=== PATIENT | female | born 1970 | race Caucasian/White ===

== ENCOUNTER 2016-10-27 21:19 | Emergency (ER) | payer MEDICAID ==
[~2016-10-27] VITALS: Ht 152.4 cm; Wt 120.2 kg
[~2016-10-27 21:19] MED LIST: ABILIFY; AC325T PO; ACDPT PO; ACHD5005 PO; ALBU17AE23 IH; ALBU2.5V4 NEB; ALBU2.5V52 INH; ALBU8.5H2 IH; ALBU8.5H2 INH; ALPR0.254 PO; ALPR0.5T PO; ALPR1TAB7 PO; AMIT50TA3 PO; AMLO10TA PO; AMLO5TAB2 PO; AMLO5TAB5 PO; AMOX500C2 PO; ARMO150T3; ARMO150T3 PO; ARMO250T3; ASEN10TA9 SL; BENZ100C18 PO; CEFD300C3 PO; CEPH500C PO; CHLO500T4 PO; CLIN300C3 PO; CLN150C PO; CLON0.5T3 PO; CLON0.5T60 PO; CLON1TAB36; CLOT45CR46 TOP; CYCL10TA9 PO; DESV50TA; DESV50TA PO; DOXY100C2 PO; DOXY100C42 PO; ESCI10TA55 PO; FLUC100T PO; FLUO20CA25 PO; GABA100C PO; GABA300C PO; GABA400C PO; GABA600T PO; GABA600T2 PO; GABA800T2 PO; GBPN300C PO; GBPN600T PO; GFCD10B GT; GFCD10B PO; HCT25T PO; HYDR-2890 PO; HYDR-3583 PO; HYDR-3714 PO; HYDR-3720 PO; HYDR-700 PO; HYDR-707 PO; HYDR1CAP2 PO; HYDR1TAB PO; HYDR25CA PO; HYDR25CA5 PO; HYDR25TA4; HYDR25TA4 PO; IBUP-1780 PO; IBUP-30; IBUP-792 PO; IBUP800T26 PO; LEVO500S PO; LIDO15SO2 MM; LISI-595 PO; LISI40TA PO; LORA2TAB PO; LTH300C; MELO-170 PO; MEMA10TA PO; MEMA28CA PO; METH4TAB PO; METR500T PO; MTP50T; NAPR-243 PO; NAPR220C11 PO; NEBU1EAC10 MC; OXYC-12 PO; PANT40TA2 PO; PENI250T4 PO; PENI500T PO; PHEN37.555 PO; PRCD5U PO; PRD50T PO; PRED20TA PO; PREG100C22 PO; PREG75CA; PREG75CA PO; PROP1TAB77; PROP1TAB77 PO; PROP20TA5 PO; QTP100T PO; QTP200T PO; QUET200T28 PO; QUET300T PO; QUET300T2 PO; QUET400T3 PO; RIVA20TA2 PO; RT-ALBUINH IH; Rivaroxaban PO; SUCR1ORA5 PO; SULF1TAB38 PO; TIZA4TAB3 PO; TIZA4TAB55 PO; TOPI100T11 PO; TRAM-21 PO; TRAM50TA2 PO; TRAZ100T92 PO; TRAZADON; TRM50T PO; VNL37.5T PO; VORT20TA PO; XANAX; ZITHROMAX; [UNRECOGNIZED DRUG - OTHER] PO; [UNRECOGNIZED DRUG - REMARK]; [UNRECOGNIZED DRUG - REMARK] PO; nuvigil; prestiq
--- NOTE | 2016-10-27 22:57 | ED Psychosocial ---
General Chief Complaint: Substance Abuse Stated Complaint: VOMITING Nursing Triage Note: Patient reports experiencing withdrawal sx starting this a.m. Pt has began again to abuse opiates and had some Morphine/Roxicet; last med yesterday. Source: patient, RN notes reviewed Exam Limitations: physical impairment History of Present Illness Time seen by provider: 22:55 Initial Comments Apparent long hx of substance abuse. Admits to abusing again and is withdrawing. Timing/Duration: this morning Severity: severe Associated Symptoms: anxiety, other (nausea; abdominal cramping) Allergies and Home Medications Allergies Coded Allergies: NKANo Known Allergies (Unverified Allergy, Mild, 02/14/11) Home Medications Albuterol Sulfate 8.5 Gm Aer.w.adap 2 PUFF INH Q4H PRN PRN SHORTNESS OF BREATH ( Reported) Alprazolam 0.25 Mg Tablet #42 1 TAB PO TID (Reported) Amlodipine Besylate 5 Mg Tablet #30 1 TAB PO ethan (Reported) Cyclobenzaprine HCl 10 Mg Tablet #28 1 TAB PO PRN (Reported) Escitalopram Oxalate 10 Mg Tablet 10 MG PO DAILY (Reported) Gabapentin 600 Mg Tablet #180 1 TAB PO TID (Reported) Pantoprazole Sodium 40 Mg Tablet.dr #15 40 MG PO DAILY Prescribed by: TEODORA ROCA on 04/10/16 2326 Sucralfate 1 Gm/10 Ml Oral.susp #400 1 GM PO QID AC AND HS Prescribed by: TEODORA ROCA on 04/10/16 2326 Tramadol HCl 50 Mg Tablet #28 1 TAB PO PRN (Reported) Trazodone HCl 100 Mg Tablet 100 MG PO HS (Reported) Constitutional: see HPI diaphoresis Gastrointestinal: see HPI abdominal pain : No Control/STD Prophylaxis: Other (hyster) Psychiatric/Neurological: See HPI Anxiety Emotional Problems All Other Systems Reviewed Negative Unless Noted: Yes (Negative excepted noted.) Past Zjzbgfs-Srbdre-Gidouu Hx Patient Social History Alcohol Use: Occasionally Uses Recreational Drug Use: Yes (any Opiate obtained: Roxicet, Morphine) Smoking Status: Current Everyday Smoker Type Used: Cigarettes Former Smoker/When Quit: Recent Foreign Travel: No Contact w/Someone Who Travel: No Recent Infectious Disease Expo: No Recent Hopitalizations: No Immunizations Up To Date Tetanus Booster (TDap): Unknown Date of Pneumonia Vaccine: Apr 26, 2009 Date of Influenza Vaccine: Sep 09, 2012 Seasonal Allergies Seasonal Allergies: No Surgeries HX Surgeries: Yes (TRANSPOSTION/MEDIAN NERVE & CARPAL TUNNEL X 3, URETERAL STENT, LITHOTRIPSY) Surgeries: Gallbladder, Hysterectomy, Orthopedic, Renal, Tubal Ligation Respiratory Hx Respiratory Disorders: Yes Respiratory Disorders: Pneumonia, Chronic Bronchitis, Pulmonary Embolism Cardiovascular Hx Cardiac Disorders: Yes Cardiac Disorders: Hypertension Neurological Hx Neurological Disorders: Yes (PSUEDOSEIZURES) Neurological Disorders: Headaches /Migraines, Seizure Disorder 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 System : No Hx 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 Disorders: No Sexually Transmitted Disease: No HIV/AIDS: No Female 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 Genitourinary Hx Genitourinary Disorders: Yes Genitourinary Disorders: Kidney Stones Gastrointestinal Hx Gastrointestinal Disorders: No Musculoskeletal Hx Musculoskeletal Disorders: Yes (MOST ARE SELF-REPORTED, WITH [place] MEDICAL DOCUMENTATION OF THESE CONDITIONS) Musculoskeletal Disorders: Degenerate Disk Disease, Arthritis, Fibromyalgia, Back Injury, Scoliosis, Chronic Back Pain Endocrine Hx Endocrine Disorders: Yes (MORBID OBESITY) HEENT HX ENT Disorders: Yes (TMJ PROBLEMS PER PT, EXTENSIVE DENTAL CARIES/MISSING TEETH) Cancer Hx Cancer: No Psychosocial Hx Psychiatric Problems: Yes (MOOD DISORDER,POLYSUBSTANCE ABUSE, OVERDOSES, PANIC DISORDER, AGORAPHOBIA) Behavioral Health Disorders: Pseudo Seizures, Sleep Difficulties, Anxiety, Suicide Attempts, Depression Integumentary HX Skin/Integumentary Disorder: No Blood Transfusions Hx Blood Disorders: No Family Medical History Significant Family History: No Pertinent Family Hx Family Medial History: Alcoholism 19 FATHER (grandfather) Alzheimer's disease 19 MOTHER (grandmother) Arthritis 19 FATHER Cardiovascular disease 19 FATHER 19 MOTHER Cataracts 19 MOTHER Coronary thrombosis 19 FATHER Dementia 19 MOTHER (grandparents) Diabetes mellitus 19 MOTHER Drug abuse 19 FATHER Glaucoma 19 FATHER (grandfather) Headache disorder 19 FATHER Hypercholesterolemia 19 FATHER Hypertension 19 FATHER Myocardial infarction 19 FATHER Parkinson's disease 19 MOTHER Prostate cancer 19 MOTHER (uncle brother of mother) Psychosocial problem 19 FATHER Respiratory disorder 19 FATHER (grandfather) Seizure disorder 19 MOTHER No Family History of: AIDS Abdominal aortic aneurysm [place]'s disease Aphasia Asthma Cancer of mouth Colon cancer Completed stroke Congenital disease Congenital heart disease Cystic fibrosis Deafness or hearing loss Dysphasia Fibrocystic disease of breast Gastroenteritis Infertility Kidney disease Neoplasm Severe allergy Thyroid disease Tuberculosis Visual disorder Physical Exam Vital Signs Vital Sign - Last 12Hours 10/27/16 21:53 Temp 96.0 Pulse 72 Resp 20 B/P 186/95 Pulse Ox 98 O2 Delivery Room Air Capillary Refill : Less Than 3 Seconds General Appearance: WD/WN moderate distress obese HEENT: PERRL/EOMI pharynx normal Neck: supple Respiratory: no respiratory distress Cardiovascular: regular rate, rhythm Gastrointestinal: soft Neurologic/Psychiatric: no motor/sensory deficits alert other (anxious) Appearance/Memory: disheveled impaired insight Behavior/Eye Contact: increased rate of speech compulsive Thoughts/Hallucinations: phobic Skin: diaphoresis Laceration Repair : Suture Size: 4-0 Progress/Results/Core Measures Results/Orders Lab Results Laboratory Tests Test 10/27/16 23:12 10/27/16 23:40 Range/Units Ur Tricyclic Antidepressants Screen NEGATIVE NEGATIVE Urine Amphetamines Screen NEGATIVE NEGATIVE Urine Barbiturates Screen NEGATIVE NEGATIVE Urine Benzodiazepines Screen NEGATIVE NEGATIVE Urine Cannabinoids Screen POSITIVE H NEGATIVE Urine Cocaine Screen NEGATIVE NEGATIVE Urine Methadone Screen NEGATIVE NEGATIVE Urine Methamphetamines Screen NEGATIVE NEGATIVE Urine Opiates Screen POSITIVE H NEGATIVE Urine Oxycodone Screen POSITIVE H NEGATIVE Urine Phencyclidine Screen NEGATIVE NEGATIVE Urine Propoxyphene Screen NEGATIVE NEGATIVE Serum Alcohol < 10 <10 MG/DL My Orders Orders-JOSEMANUEL ANDERSEN DO Alcohol (10/27/16 22:55) Drug Screen Stat (Urine) (10/27/16 22:55) Clonidine Tablet (Catapres Tablet) (10/27/16 23:15) Diazepam Injection (Valium Injection) (10/27/16 23:15) Prochlorperazine Injection (Compazine In (10/27/16 23:15) Promethazine Injection (Phenergan Injec (10/27/16 23:15) Medications Given in ED Current Medications Medications Dose Ordered Sig/Garry Route Start Time Stop Time Status Last Admin Dose Admin Clonidine HCl 0.2 mg ONCE ONCE PO 10/27/16 23:15 10/27/16 23:16 DC 10/27/16 23:45 0.2 MG Diazepam 5 mg ONCE ONCE IM 10/27/16 23:15 10/27/16 23:16 DC 10/27/16 23:46 5 MG Promethazine HCl 50 mg ONCE ONCE IM 10/27/16 23:15 10/27/16 23:16 DC 10/27/16 23:46 50 MG Vital Signs/I&O Vital Sign - Last 12Hours 10/27/16 10/27/16 21:53 23:46 Temp 96.0 96.0 Pulse 72 Resp 20 B/P 186/95 Pulse Ox 98 O2 Delivery Room Air Blood Pressure Mean: 125 Progress Note : Progress Note Patient improved p/ the clonidine, valium and phenergan. Patient aware that we do not have narcotic withdrawal services here. Did provide [facility]'s new substance abuse treatment info. Departure Impression Impression: Primary Impression: Polysubstance abuse Additional Impression: ? Opiate withdrawal Disposition: HOME, SELF-CARE Condition: Improved Departure-Patient Inst. Decision time for Depature: 00:19 Referrals: [facility] (PCP/Family) Primary Care Physician Patient Instructions: Drug Withdrawal (DC), Drug Abuse and Drug Addiction (DC) Add. Discharge Instructions: All discharge instructions reviewed with patient and/or family. Voiced understanding. NEED TO FOLLOW UP WITH DR. WONG, OR DR. DE DIOS @ [facility]. THEY ARE NOW OFFERING MEDICATION-ASSISTED SUBSTANCE ABUSE TREATMENT THRU THEIR CLINIC. JOSEMANUEL NADERSEN DO Oct 27, 2016 22:56
[2016-10-27] MEDS ORDERED: PROMETHAZINE INJ 25 MG/ML (PHENERGAN) AMP IM ONE (23:15)
[2016-10-27] MEDS ORDERED: DIAZEPAM INJ 10 MG/2 ML (VALIUM) SYR IM ONE (23:15)
[2016-10-27] MEDS ORDERED: PROCHLORPERAZINE 10 MG/2ML INJ (COMPAZINE) IM ONE (23:15)
[2016-10-27] MEDS ORDERED: cloNIDine 0.2 MG (CATAPRES) TAB PO ONE (23:15)
[2016-10-28 00:28] VITALS: BP 192/106
[2016-10-28] MEDS ORDERED: DULO60CA58 PO (00:38)
[2016-11-02] MEDS ORDERED: AMLO5TAB2 PO (12:50)
== END 2016-10-28 00:28 | disposition home or self-care (01) ==
LOC: EDUNIT# 21:19 → ER 21:20
DX: R11.10 Vomiting, unspecified (principal); F11.10 Opioid abuse, uncomplicated; F12.10 Cannabis abuse, uncomplicated; F17.210 Nicotine dependence, cigarettes, uncomplicated
CPT/HCPCS: 36415; 80306; 80320; 96372; 99285

== ENCOUNTER 2016-10-31 18:44 | Emergency (ER) | payer MEDICAID ==
[~2016-10-31] VITALS: Ht 152.4 cm; Wt 120.4 kg
[~2016-10-31 18:44] MED LIST changes: +DULO60CA58 PO
[2016-10-31] MEDS ORDERED: LACTATED RINGERS 1,000 ML IV ONE (19:10)
[2016-10-31] MEDS ORDERED: ONDANSETRON 4 MG/2 ML (SDV) Z0FRAN IVP ONE (19:15)
[2016-10-31] MEDS ORDERED: cloNIDine 0.1 MG (CATAPRES) TAB PO ONE ×2 (19:15→20:30)
--- NOTE | 2016-10-31 19:19 | ED Psychosocial ---
General Chief Complaint: Detox Stated Complaint: MORPHINE WITHDRAWAL SYMPTOMS Nursing Triage Note: PT REPORTS SHE FEELS LIKE SHE IS WITHDRAWLING OFF OF OPIODS. PT REPORTS HER IN DECEMER AND SHE RELAPSED. PT REPORTS HER LAST USE WAS 2-3 DAYS AGO. PT REPORTS HOT SWEATS, INSOMNIA, AND ANXIETY. Source: patient Exam Limitations: no limitations History of Present Illness Time seen by provider: 18:59 Initial Comments This 46-year-old woman well-known to this provider presents to emergency room requesting help for narcotic withdrawal. She lost her in July and turned to narcotics to manage depression and loneliness. She has been purchasing them off the street. Her last use was about 2.5 days ago. She has had diaphoresis, agitation, hypertension, diarrhea, vomiting, and depression as part of her withdrawal. She has already contacted Portillo Oneill at [facility] and has an appointment to establish care in the substance abuse treatment program at [facility] tomorrow at 13:30. She is presenting to the emergency room to get assistance with managing her symptoms in the meantime. She is significantly hypertensive and tearful on assessment. She has some generalized pain and some epigastric discomfort. Allergies and Home Medications Allergies Coded Allergies: FILIPPOANo Known Allergies (Unverified Allergy, Mild, 02/14/11) Home Medications Albuterol Sulfate 8.5 Gm Aer.w.adap 2 PUFF INH Q4H PRN PRN SHORTNESS OF BREATH ( Reported) Alprazolam 0.25 Mg Tablet #42 1 TAB PO TID (Reported) Amlodipine Besylate 5 Mg Tablet #30 1 TAB PO ethan (Reported) Cyclobenzaprine HCl 10 Mg Tablet #28 1 TAB PO PRN (Reported) Duloxetine HCl 60 Mg Capsule.dr #10 (Reported) Escitalopram Oxalate 10 Mg Tablet 10 MG PO DAILY (Reported) Gabapentin 600 Mg Tablet #180 1 TAB PO TID (Reported) Pantoprazole Sodium 40 Mg Tablet.dr #15 40 MG PO DAILY Prescribed by: TEODORA ROCA on 04/10/162325 Sucralfate 1 Gm/10 Ml Oral.susp #400 1 GM PO QID AC AND HS Prescribed by: TEODORA ROCA on 04/10/162325 Tramadol HCl 50 Mg Tablet #28 1 TAB PO PRN (Reported) Trazodone HCl 100 Mg Tablet 100 MG PO HS (Reported) Constitutional: see HPI EENTM: see HPI Respiratory: no symptoms reported Cardiovascular: see HPI Gastrointestinal: see HPI Genitourinary: no symptoms reported : No Musculoskeletal: see HPI Skin: no symptoms reported Psychiatric/Neurological: See HPI Past [place]-Exnktl-Kqcpev Hx Patient Social History Alcohol Use: Past History Recreational Drug Use: Yes (prescription drug abuse and marijuana) Smoking Status: Current Everyday Smoker Type Used: Cigarettes Former Smoker/When Quit: Recent Foreign Travel: No Contact w/Someone Who Travel: No Recent Infectious Disease Expo: No Recent Hopitalizations: No Immunizations Up To Date Tetanus Booster (TDap): Unknown Date of Pneumonia Vaccine: Apr 26, 2009 Date of Influenza Vaccine: Sep 09, 2012 Seasonal Allergies Seasonal Allergies: No Surgeries HX Surgeries: Yes (TRANSPOSTION/MEDIAN NERVE & CARPAL TUNNEL X 3, URETERAL STENT, LITHOTRIPSY) Surgeries: Gallbladder, Hysterectomy, Orthopedic, Renal, Tubal Ligation Respiratory Hx Respiratory Disorders: Yes Respiratory Disorders: Pneumonia, Chronic Bronchitis, Pulmonary Embolism Cardiovascular Hx Cardiac Disorders: Yes Cardiac Disorders: Hypertension Neurological Hx Neurological Disorders: Yes (PSUEDOSEIZURES) Neurological Disorders: Headaches /Migraines, Seizure Disorder 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 System Hx 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 Disorders: No Sexually Transmitted Disease: No HIV/AIDS: No 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 Genitourinary Hx Genitourinary Disorders: Yes Genitourinary Disorders: Kidney Stones Gastrointestinal Hx Gastrointestinal Disorders: No Musculoskeletal Hx Musculoskeletal Disorders: Yes (MOST ARE SELF-REPORTED, WITH [place] MEDICAL DOCUMENTATION OF THESE CONDITIONS) Musculoskeletal Disorders: Degenerate Disk Disease, Arthritis, Fibromyalgia, Back Injury, Scoliosis, Chronic Back Pain Endocrine Hx Endocrine Disorders: Yes (MORBID OBESITY) HEENT HX ENT Disorders: Yes (TMJ PROBLEMS PER PT, EXTENSIVE DENTAL CARIES/MISSING TEETH) Cancer Hx Cancer: No Psychosocial Hx Psychiatric Problems: Yes (MOOD DISORDER,POLYSUBSTANCE ABUSE, OVERDOSES, PANIC DISORDER, AGORAPHOBIA) Behavioral Health Disorders: Pseudo Seizures, Sleep Difficulties, Anxiety, Suicide Attempts, Depression Integumentary HX Skin/Integumentary Disorder: No Blood Transfusions Hx Blood Disorders: No Family Medical History Significant Family History: No Pertinent Family Hx Family Medial History: Alcoholism 19 FATHER (grandfather) Alzheimer's disease 19 MOTHER (grandmother) Arthritis 19 FATHER Cardiovascular disease 19 FATHER 19 MOTHER Cataracts 19 MOTHER Coronary thrombosis 19 FATHER Dementia 19 MOTHER (grandparents) Diabetes mellitus 19 MOTHER Drug abuse 19 FATHER Glaucoma 19 FATHER (grandfather) Headache disorder 19 FATHER Hypercholesterolemia 19 FATHER Hypertension 19 FATHER Myocardial infarction 19 FATHER Parkinson's disease 19 MOTHER Prostate cancer 19 MOTHER (uncle brother of mother) Psychosocial problem 19 FATHER Respiratory disorder 19 FATHER (grandfather) Seizure disorder 19 MOTHER No Family History of: AIDS Abdominal aortic aneurysm [place]'s disease Aphasia Asthma Cancer of mouth Colon cancer Completed stroke Congenital disease Congenital heart disease Cystic fibrosis Deafness or hearing loss Dysphasia Fibrocystic disease of breast Gastroenteritis Infertility Kidney disease Neoplasm Severe allergy Thyroid disease Tuberculosis Visual disorder Physical Exam Vital Signs Vital Sign - Last 12Hours 10/31/16 18:58 Temp 97.5 Pulse 86 Resp 18 Pulse Ox 97 Capillary Refill : Less Than 3 Seconds General Appearance: WD/WN moderate distress (emotional) HEENT: PERRL/EOMI normal ENT inspection Neck: normal inspection Respiratory: lungs clear normal breath sounds no respiratory distress no accessory muscle use Cardiovascular: regular rate, rhythm no edema no murmur Gastrointestinal: normal bowel sounds soft tenderness (mild in the epigastrium ) Extremities: normal inspection no pedal edema 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 no motor/sensory deficits alert oriented x 3 other (anxious, tearful, depressed) Appearance/Memory: appropriate appearance appropriate insight Behavior/Eye Contact: cooperative good eye contact normal speech Thoughts/Hallucinations: normal thought pattern no apparent hallucination Skin: normal color warm/dry Laceration Repair : Suture Size: 4-0 Progress/Results/Core Measures Results/Orders Lab Results Laboratory Tests Test 10/31/16 19:14 10/31/16 19:21 Range/Units Alanine Aminotransferase (ALT/SGPT) 21 0-55 U/L Albumin 3.4 3.2-4.5 G/DL Alkaline Phosphatase 80 40-136 U/L Anion Gap 13 5-14 MMOL/L Aspartate Amino Transf (AST/SGOT) 14 5-34 U/L BUN/Creatinine Ratio 15 Basophils # (Auto) 0.0 0.0-0.1 10^3/uL Basophils (%) (Auto) 0 0-10 % Blood Morphology Comment NORMAL Blood Urea Nitrogen 10 7-18 MG/DL Calcium Level 8.9 8.5-10.1 MG/DL Carbon Dioxide Level 22 21-32 MMOL/L Chloride Level 105 98-107 MMOL/L Creatinine 0.65 0.60-1.30 MG/DL Eosinophils # (Auto) 0.2 0.0-0.3 10^3/uL Eosinophils % (Manual) 5 % Eosinophils (%) (Auto) 2 0-10 % Estimat Glomerular Filtration Rate > 60 Glucose Level 108 H 70-105 MG/DL Hematocrit 44 35-52 % Hemoglobin 14.9 11.5-16.0 G/DL Lipase 86 H 8-78 U/L Lymphocytes # (Auto) 4.3 H 1.0-4.0 X 10^3 Lymphocytes % (Manual) 19 % Lymphocytes (%) (Auto) 28 12-44 % Magnesium Level 1.6 L 1.8-2.4 MG/DL Mean Corpuscular Hemoglobin 30 25-34 PG Mean Corpuscular Hemoglobin Concent 34 32-36 G/DL Mean Corpuscular Volume 89 80-99 FL Mean Platelet Volume 10.5 H 7.4-10.4 FL Monocytes # (Auto) 0.7 0.0-1.0 X 10^3 Monocytes % (Manual) 5 % Monocytes (%) (Auto) 4 0-12 % Neutrophils # (Auto) 9.9 H 1.8-7.8 X 10^3 Neutrophils % (Manual) 66 % Neutrophils (%) (Auto) 65 42-75 % Platelet Count 263 130-400 10^3/uL Potassium Level 3.6 3.6-5.0 MMOL/L Reactive Lymphocytes 5 % Red Blood Count 4.93 4.35-5.85 10^6/uL Red Cell Distribution Width 13.6 10.0-14.5 % Serum Alcohol < 10 <10 MG/DL Sodium Level 140 135-145 MMOL/L TSH [place] Testing 1.97 0.35-4.94 UIU/ML Total Bilirubin 0.2 0.1-1.0 MG/DL Total Protein 6.7 6.4-8.2 G/DL White Blood Count 15.2 H 4.3-11.0 10^3/uL Ur Tricyclic Antidepressants Screen NEGATIVE NEGATIVE Urine Amphetamines Screen NEGATIVE NEGATIVE Urine Bacteria FEW H /HPF Urine Barbiturates Screen NEGATIVE NEGATIVE Urine Benzodiazepines Screen POSITIVE H NEGATIVE Urine Bilirubin NEGATIVE NEGATIVE Urine Cannabinoids Screen POSITIVE H NEGATIVE Urine Casts NONE /LPF Urine Clarity SLIGHTLY CLOUDY Urine Cocaine Screen NEGATIVE NEGATIVE Urine Color YELLOW Urine Crystals NONE /LPF Urine Culture Indicated NO Urine Glucose (UA) NEGATIVE NEGATIVE Urine Ketones NEGATIVE NEGATIVE Urine Leukocyte Esterase 1+ H NEGATIVE Urine Methadone Screen NEGATIVE NEGATIVE Urine Methamphetamines Screen NEGATIVE NEGATIVE Urine Mucus NEGATIVE /LPF Urine Nitrite NEGATIVE NEGATIVE Urine Opiates Screen NEGATIVE NEGATIVE Urine Oxycodone Screen NEGATIVE NEGATIVE Urine Phencyclidine Screen NEGATIVE NEGATIVE Urine Propoxyphene Screen NEGATIVE NEGATIVE Urine Protein 1+ H NEGATIVE Urine RBC NONE /HPF Urine RBC (Auto) 1+ H NEGATIVE Urine Specific [place] 1.020 1.016-1.022 Urine Squamous Epithelial Cells 25-50 H /HPF Urine Urobilinogen NORMAL NORMAL MG/DL Urine WBC 2-5 /HPF Urine pH 6 5-9 My Orders Orders-JOEL FULLER MD Clonidine Tablet (Catapres Tablet) (10/31/16 19:15) Lactated Ringers (Lr 1000 Ml Iv Solution (10/31/16 19:10) Ondansetron Injection (Zofran Injectio (10/31/16 19:15) Alcohol (10/31/16 19:10) Cbc With Automated Diff (10/31/16 19:10) Comprehensive Metabolic Panel (10/31/16 19:10) Drug Screen Stat (Urine) (10/31/16 19:10) Lipase (10/31/16 19:10) Magnesium (10/31/16 19:10) Ua Culture If Indicated (10/31/16 19:10) Thyroid Analyzer (10/31/16 19:10) Manual Differential (10/31/16 19:14) Chest Pa/Lat (2 View) (10/31/16 20:15) Clonidine Tablet (Catapres Tablet) (10/31/16 20:30) Hydroxyzine Oral (Vistaril Capsule) (10/31/16 20:30) Rx-Hydroxyzine Pamoate (Rx-Vistaril) (10/31/16 22:13) Rx-Ondansetron Po (Rx-Zofran Po) (10/31/16 22:20) Medications Given in ED Current Medications Medications Dose Ordered Sig/Garry Route Start Time Stop Time Status Last Admin Dose Admin Clonidine HCl 0.1 mg ONCE ONCE PO 10/31/16 20:30 10/31/16 20:31 DC 10/31/16 20:45 0.1 MG Clonidine HCl 0.1 mg 0.1 mg ONCE ONCE PO 10/31/16 19:15 10/31/16 19:16 DC 10/31/16 19:30 0.1 MG Hydroxyzine Pamoate 25 mg ONCE ONCE PO 10/31/16 20:30 10/31/16 20:31 DC 10/31/16 20:44 25 MG Lactated Ringer's 1,000 ml @ 0 mls/hr Q0M ONCE IV 10/31/16 19:10 10/31/16 19:13 DC 10/31/16 19:30 0 MLS/HR Ondansetron HCl 8 mg ONCE ONCE IVP 10/31/16 19:15 10/31/16 19:16 DC 10/31/16 19:30 8 MG Vital Signs/I&O Vital Sign - Last 12Hours 10/31/16 18:58 Temp 97.5 Pulse 86 Resp 18 B/P Pulse Ox 97 Progress Note #1: Time: 19:19 Progress Note Patient was seen and examined. She will receive a liter of lactated Ringer's and clonidine will be used for treatment of her blood pressure and anxiety. I will monitor her blood pressures. Basic labs have been ordered. Goal is to control her blood pressure and manage her symptoms so that she can follow-up at [facility] tomorrow. Progress Note #2: Time: 20:23 Progress Note Patient is still rather hypertensive and experiencing some anxiety. A second dose of clonidine as well as a dose of hydroxyzine have been ordered. Patient also had a significant leukocytosis. Chest x-ray is being ordered to evaluate for possible causes of infection. Progress Note #3: Time: 22:17 Progress Note Blood pressure improved significantly with clonidine and hydroxyzine. Patient is now sleeping soundly but easily arousable. A take-home packet of hydroxyzine will be provided. A take-home packet of Zofran was also dispensed. No source for her leukocytosis was identified. WBC elevation likely represents generalized physiologic stress from withdrawal. Diagnostic Imaging Diagonstic Imaging: Xray Plain Films/CT/US/NM/MRI: chest Comments NAME: TERENCE FUNK [facility] REC#: [id number] PT STATUS: REG ER : 1970 PHYSICIAN: JOEL FULLER MD ADMIT DATE: 10/31/16/ER Draft Date of Exam:10/31/16 CHEST PA/LAT (2 VIEW) EXAM: CHEST PA/LAT (2 VIEW)/ INDICATION: Leukocytosis. COMPARISON: Chest radiograph 04/10/2016. FINDINGS: Normal heart size and pulmonary vascularity. No focal pulmonary opacity, pleural effusion, or pneumothorax. No acute osseous findings. No significant change. IMPRESSION: Negative chest. Dictated on workstation # [id number] Dict: 10/31/162042 Trans: 10/31/162044 [id number] Interpreted by: ENRIQUE AYALA MD Departure Impression Impression: Primary Impression: Narcotic withdrawal Additional Impressions: Hypertensive urgency Depression with anxiety Nausea Grief reaction with prolonged bereavement Leukocytosis Qualified Code: D72.829 - Elevated white blood cell count, unspecified Disposition: HOME, SELF-CARE Condition: Improved Departure-Patient Inst. Decision time for Depature: 22:15 Referrals: [facility] (PCP/Family) Primary Care Physician Patient Instructions: Drug Abuse and Drug Addiction (DC) Add. Discharge Instructions: Stay well-hydrated. Use hydroxyzine every 6 hours as needed for anxiety. Keep your appointment at [facility] tomorrow. Use Zofran for the season ondansetron) dissolved under the tongue every 4 hours as needed for nausea. Return to the ER if symptoms worsen significantly before your appointment tomorrow. All discharge instructions reviewed with patient and/or family. Voiced understanding. Copy Copies To 1: JULIETTE WONG JOSHUA T MD Oct 31, 2016 19:19
[2016-10-31 19:26] LABS: BASOPHILS % (AUTO) 0 % (0-10); EOSINOPHILS # (AUTO) 0.2 10^3/uL (0.0-0.3); EOSINOPHILS % (AUTO) 2 % (0-10); LYMPHOCYTES # (AUTO) 4.3 X 10^3 (1.0-4.0); LYMPHOCYTES % (AUTO) 28 % (12-44); MEAN CORPUSCULAR HEMOGLOBIN 30 PG (25-34); MEAN CORPUSCULAR HGB CONC 34 G/DL (32-36); MEAN CORPUSCULAR VOLUME 89 FL (80-99); MEAN PLATELET VOLUME 10.5 FL (7.4-10.4); MONOCYTES # (AUTO) 0.7 X 10^3 (0.0-1.0); MONOCYTES % (AUTO) 4 % (0-12); NEUTROPHILS # (AUTO) 9.9 X 10^3 (1.8-7.8); NEUTROPHILS % (AUTO) 65 % (42-75); PLATELET COUNT 263 10^3/uL (130-400); RED BLOOD COUNT 4.93 10^6/uL (4.35-5.85); RED CELL DISTRIBUTION WIDTH 13.6 % (10.0-14.5); WHITE BLOOD COUNT 15.2 10^3/uL (4.3-11.0)
[2016-10-31 19:32] LABS: BILIRUBIN,URINE NEGATIVE (NEGATIVE); KETONES,URINE NEGATIVE (NEGATIVE); LEUKOCYTE ESTERASE ,URINE 1+ (NEGATIVE); NITRITE,URINE NEGATIVE (NEGATIVE); PH,URINE 6 (5-9); PROTEIN,URINE 1+ (NEGATIVE); UROBILINOGEN,URINE NORMAL (NORMAL)
[2016-10-31 19:41] LABS: SQUAMOUS EPITHELIAL CELL,UR 25-50 /HPF
[2016-10-31 19:44] LABS: ALANINE AMINOTRANSFERASE 21 U/L (0-55); ALBUMIN 3.4 G/DL (3.2-4.5); ANION GAP 13 MMOL/L (5-14); ASPARTATE AMINO TRANSFERASE 14 U/L (5-34); BILIRUBIN,TOTAL 0.2 MG/DL (0.1-1.0); BLOOD UREA NITROGEN 10 MG/DL (7-18); BUN/CREATININE RATIO 15; CALCIUM 8.9 MG/DL (8.5-10.1); CARBON DIOXIDE 22 MMOL/L (21-32); CHLORIDE 105 MMOL/L (98-107); CREATININE SERUM 0.65 MG/DL (0.60-1.30); EOSINOPHILS % (MANUAL) 5 %; GFR ESTIMATED > 60; GLUCOSE 108 MG/DL (70-105); LIPASE 86 U/L (8-78); LYMPHOCYTES % (MANUAL) 19 %; MAGNESIUM 1.6 MG/DL (1.8-2.4); NEUTROPHILS % (MANUAL) 66 %; POTASSIUM 3.6 MMOL/L (3.6-5.0); REACTIVE LYMPHOCYTES 5 %; SODIUM 140 MMOL/L (135-145); TOTAL PROTEIN 6.7 G/DL (6.4-8.2)
[2016-10-31 19:48] LABS: ALCOHOL < 10 MG/DL (<10)
[2016-10-31] MEDS ORDERED: hydrOXYzine (VISTARIL) 25 MG CAP PO ONE (20:30)
--- NOTE | 2016-10-31 20:45 | Diagnostic Imaging Report ---
EXAM: CHEST PA/LAT (2 VIEW)/ INDICATION: Leukocytosis. COMPARISON: Chest radiograph 04/10/2016. FINDINGS: Normal heart size and pulmonary vascularity. No focal pulmonary opacity, pleural effusion, or pneumothorax. No acute osseous findings. No significant change. IMPRESSION: Negative chest. Dictated by: Dictated on workstation # [id number]
[2016-10-31] MEDS ORDERED: RX-HYDROXYZINE PAMOATE 25 MG CAP #4 PO STA (22:13)
[2016-10-31] MEDS ORDERED: RX-ONDANSETRON 4 MG ODT (ZOFRAN) PPK #4 SL STA (22:20)
[2016-10-31 22:33] VITALS: BP 129/85
[2016-11-02] MEDS ORDERED: AMLO5TAB2 PO (12:50)
== END 2016-10-31 22:33 | disposition home or self-care (01) ==
LOC: EDUNIT# 18:44 → ER 18:45
DX: F11.23 Opioid dependence with withdrawal (principal); I16.0 Hypertensive urgency; F43.21 Adjustment disorder with depressed mood; F41.9 Anxiety disorder, unspecified; D72.829 Elevated white blood cell count, unspecified; G40.909 Epilepsy, unspecified, not intractable, without status epilepticus; E66.01 Morbid (severe) obesity due to excess calories; F17.210 Nicotine dependence, cigarettes, uncomplicated; Z79.899 Other long term (current) drug therapy; Z86.711 Personal history of pulmonary embolism
CPT/HCPCS: 36415; 71020; 80053; 80306; 80320; 81000; 83690; 83735; 84443; 85007; 85027; 96361; 96374

== ENCOUNTER 2016-11-01 19:12 | Inpatient (IN) | payer MEDICAID ==
[~2016-11-01] VITALS: Ht 154.9 cm; Wt 123.2 kg
[2016-11-01] MEDS ORDERED: NS IV 1000 ML 1,000 ML IV ONE (19:20)
[2016-11-01] MEDS ORDERED: NALOXONE 2 MG/2 ML (NARCAN) SYR IV ONE (19:30)
[2016-11-01 19:35] LABS: BILIRUBIN,URINE NEGATIVE (NEGATIVE); KETONES,URINE NEGATIVE (NEGATIVE); LEUKOCYTE ESTERASE ,URINE NEGATIVE (NEGATIVE); NITRITE,URINE NEGATIVE (NEGATIVE); PH,URINE 7 (5-9); PROTEIN,URINE NEGATIVE (NEGATIVE); UROBILINOGEN,URINE NORMAL (NORMAL)
[2016-11-01 19:42] LABS: SQUAMOUS EPITHELIAL CELL,UR 0-2 /HPF
[2016-11-01 19:49] LABS: BASOPHILS % (AUTO) 0 % (0-10); EOSINOPHILS # (AUTO) 0.2 10^3/uL (0.0-0.3); EOSINOPHILS % (AUTO) 2 % (0-10); LYMPHOCYTES # (AUTO) 4.4 X 10^3 (1.0-4.0); LYMPHOCYTES % (AUTO) 32 % (12-44); MEAN CORPUSCULAR HEMOGLOBIN 30 PG (25-34); MEAN CORPUSCULAR HGB CONC 34 G/DL (32-36); MEAN CORPUSCULAR VOLUME 88 FL (80-99); MONOCYTES # (AUTO) 0.6 X 10^3 (0.0-1.0); MONOCYTES % (AUTO) 4 % (0-12); NEUTROPHILS # (AUTO) 8.7 X 10^3 (1.8-7.8); NEUTROPHILS % (AUTO) 62 % (42-75); PLATELET COUNT 273 10^3/uL (130-400); RED CELL DISTRIBUTION WIDTH 13.7 % (10.0-14.5)
[2016-11-01 20:18] LABS: ALANINE AMINOTRANSFERASE 20 U/L (0-55); ALBUMIN 3.6 G/DL (3.2-4.5); AMYLASE 43 U/L (25-125); ANION GAP 13 MMOL/L (5-14); ASPARTATE AMINO TRANSFERASE 18 U/L (5-34); BILIRUBIN,TOTAL 0.3 MG/DL (0.1-1.0); BLOOD UREA NITROGEN 8 MG/DL (7-18); BUN/CREATININE RATIO 11; CALCIUM 9.2 MG/DL (8.5-10.1); CARBON DIOXIDE 25 MMOL/L (21-32); CHLORIDE 103 MMOL/L (98-107); CREATININE SERUM 0.76 MG/DL (0.60-1.30); GFR ESTIMATED > 60; GLUCOSE 98 MG/DL (70-105); POTASSIUM 3.4 MMOL/L (3.6-5.0); SALICYLATE < 5.0 MG/DL (5.0-20.0); SODIUM 141 MMOL/L (135-145)
[2016-11-01 20:24] LABS: ACETAMINOPHEN < 10 UG/ML (10-30); ALCOHOL < 10 MG/DL (<10)
[2016-11-01 21:08] VITALS: BP 170/104
[2016-11-01] MEDS ORDERED: D5 1/2 NS 1000 ML IV SOLUTION 1,000 ML IV ONE (21:08)
[2016-11-01 22:00] VITALS: BP 179/109
[2016-11-01] MEDS ORDERED: SODIUM BICARB 8.4% 50 MEQ/50 ML (ABBOTT) SYR IV ONE (22:30)
[2016-11-01] MEDS: D5 1/2 NS 1000 ML IV SOLUTION 1,000 ML IV SCH (22:30)
[2016-11-01 22:34] LABS: ABG BASE EXCESS 4.2 MMOL/L (-2.5-2.5); ABG HCO3 29 MMOL/L (23-27); ABG OXYGEN SATURATION 97 % (94-100); ABG PCO2 47 MMHG (35-45); ABG PO2 79 MMHG (79-93); ABG TCO2 30.6 MMOL/L (21.0-31.0)
[2016-11-01 22:35] LABS: ALLENS TEST YES-POS; PATIENT TEMP 95.5
[2016-11-01] MEDS: POTASSIUM CL 10 MEQ/50 ML IVPB (PRE-MIX) IV SCH (22:47)
[2016-11-01 23:00] VITALS: BP 183/108
[2016-11-01 23:42] LABS: MAGNESIUM 1.8 MG/DL (1.8-2.4)
[2016-11-01 23:47] LABS: ACETAMINOPHEN < 10 UG/ML (10-30)
[2016-11-01 23:48] LABS: TROPONIN I < 0.30 NG/ML (<0.30)
[2016-11-02] VITALS (13 sets, daily range): BP systolic 136–185; BP diastolic 97–131
[2016-11-02] MEDS ORDERED: hydrALAZINE (APESOLINE) 20 MG/ML VIAL ONE (00:02)
[2016-11-02] MEDS: POTASSIUM CL 10 MEQ/50 ML IVPB (PRE-MIX) IV SCH ×3 (00:17→04:11)
[2016-11-02] MEDS ORDERED: hydrALAZINE (APESOLINE) 20 MG/ML VIAL IV ONE (00:30)
[2016-11-02 01:27] LABS: ABG BASE EXCESS 5.9 MMOL/L (-2.5-2.5); ABG HCO3 30 MMOL/L (23-27); ABG OXYGEN SATURATION 97 % (94-100); ABG PCO2 39 MMHG (35-45); ABG PH 7.49 (7.37-7.43); ABG PO2 66 MMHG (79-93)
[2016-11-02 01:29] LABS: ALLENS TEST YES-POS; PATIENT TEMP 95.6
[2016-11-02] MEDS: D5 1/2 NS 1000 ML IV SOLUTION 1,000 ML IV SCH (04:15)
[2016-11-02 04:40] LABS: BASOPHILS % (AUTO) 0 % (0-10); EOSINOPHILS # (AUTO) 0.2 10^3/uL (0.0-0.3); EOSINOPHILS % (AUTO) 1 % (0-10); LYMPHOCYTES # (AUTO) 3.3 X 10^3 (1.0-4.0); LYMPHOCYTES % (AUTO) 24 % (12-44); MEAN CORPUSCULAR HEMOGLOBIN 30 PG (25-34); MEAN CORPUSCULAR HGB CONC 34 G/DL (32-36); MEAN CORPUSCULAR VOLUME 89 FL (80-99); MEAN PLATELET VOLUME 10.4 FL (7.4-10.4); MONOCYTES # (AUTO) 0.5 X 10^3 (0.0-1.0); MONOCYTES % (AUTO) 3 % (0-12); NEUTROPHILS # (AUTO) 9.5 X 10^3 (1.8-7.8); NEUTROPHILS % (AUTO) 71 % (42-75); PLATELET COUNT 238 10^3/uL (130-400); RED BLOOD COUNT 4.99 10^6/uL (4.35-5.85); RED CELL DISTRIBUTION WIDTH 13.8 % (10.0-14.5); WHITE BLOOD COUNT 13.5 10^3/uL (4.3-11.0)
[2016-11-02 05:04] LABS: ALANINE AMINOTRANSFERASE 16 U/L (0-55); ALBUMIN 3.2 G/DL (3.2-4.5); ANION GAP 10 MMOL/L (5-14); ASPARTATE AMINO TRANSFERASE 13 U/L (5-34); BILIRUBIN,TOTAL 0.2 MG/DL (0.1-1.0); BLOOD UREA NITROGEN 7 MG/DL (7-18); BUN/CREATININE RATIO 10; CALCIUM 8.7 MG/DL (8.5-10.1); CARBON DIOXIDE 25 MMOL/L (21-32); CHLORIDE 105 MMOL/L (98-107); CREATININE SERUM 0.67 MG/DL (0.60-1.30); GFR ESTIMATED > 60; GLUCOSE 118 MG/DL (70-105); MAGNESIUM 1.9 MG/DL (1.8-2.4); PHOSPHORUS 3.2 MG/DL (2.3-4.7); POTASSIUM 4.1 MMOL/L (3.6-5.0); SODIUM 140 MMOL/L (135-145); TOTAL PROTEIN 6.2 G/DL (6.4-8.2)
--- NOTE | 2016-11-02 05:22 | ED Psychosocial ---
General Chief Complaint: Overdose Stated Complaint: INTENTIONAL DRUG OVERDOSE-AMITRIPTYLENE Nursing Triage Note: pt to er per ems. family reports they saw her take a handfull of amitriptyline at 1600. there are 20, 25mg tabs missing from her bottle that was filled today. pt is restless, thrashing in bed. alert to person only. mumbling at times about being depressed. c/o generalized pain. reports she stopped taking xanax yesterday. possibly attempting to stop taking narcotics also. Source: patient, EMS Exam Limitations: clinical condition (PT INCOHERENT AT TIMES AND IS VERY LIMITED HISTORIAN AT THIS TIME) History of Present Illness Time seen by provider: 19:16 Initial Comments PT ARRIVES VIA EMS FROM HOME PT TOOK #20 25 MG AMITRIPTYLINE AT 1600 TODAY IN FRONT OF FAMILY PT FILLED RX TODAY FOR #30 AND #10 ARE STILL IN BOTTLE PT STATES SHE CALLED EMS PRIOR TO ARRIVAL PT MUMBLING ABOUT DEPRESSION, , , KIDS--BUT UNABLE TO UNDERSTAND MOST OF WHAT PT IS SAYING. PT WITH EXTENSIVE DRUG ABUSE HISTORY AND MULTIPLE DRUG OVERDOSES, WELL ALCOHOL ABUSE--KNOWN HISTORY OF GETTING DRUGS OFF STREET--MORPHINE, CODEINE, HYDROCODONE AND OXYCODONE. PT ALSO HAS BEEN KNOWN TO USE METH. PT WAS SEEN HERE YESTERDAY AND 10/27 FOR REPORTED NARCOTIC WITHDRAWL, AND PT REPORTEDLY ALSO STOPPED TAKING HER XANAX YESTERDAY WELL--PER CHART PT WITH A MULTITUDE OF VISITS HERE--MOST ARE ALCOHOL AND DRUG-RELATED ISSUES/ PSYCH ISSUES PT HAS BEEN FOUND TO HAVE DRUGS HIDDEN IN HER VAGINA IN THE PAST, AND MOST RECENTLY WAS FOUND TO HAVE A TUBE OF SUPERGLUE IN HER VAGINA WELL. PT ALSO KNOWN TO GIVE FALSE URINE SAMPLES AND HAS BEEN FOUND TO HAVE A BOTTLE OF URINE HID IN HER VAGINA IN THE PAST. PT ALSO WITH EXTENSIVE HISTORY OF NON-COMPLIANCE IN ALL ASPECTS OF CARE PCP: [facility] Allergies and Home Medications Allergies Coded Allergies: FILIPPOANo Known Allergies (Unverified Allergy, Mild, 02/14/11) Home Medications Albuterol Sulfate 8.5 Gm Aer.w.adap 2 PUFF INH Q4H PRN PRN SHORTNESS OF BREATH ( Reported) Alprazolam 0.25 Mg Tablet #42 1 TAB PO TID (Reported) Amlodipine Besylate 5 Mg Tablet #30 1 TAB PO ethan (Reported) Cyclobenzaprine HCl 10 Mg Tablet #28 1 TAB PO PRN (Reported) Duloxetine HCl 60 Mg Capsule.dr #10 (Reported) Escitalopram Oxalate 10 Mg Tablet 10 MG PO DAILY (Reported) Gabapentin 600 Mg Tablet #180 1 TAB PO TID (Reported) Pantoprazole Sodium 40 Mg Tablet.dr #15 40 MG PO DAILY Prescribed by: TEODORA ROCA on 04/10/162325 Sucralfate 1 Gm/10 Ml Oral.susp #400 1 GM PO QID AC AND HS Prescribed by: TEODORA ROCA on 04/10/166 Tramadol HCl 50 Mg Tablet #28 1 TAB PO PRN (Reported) Trazodone HCl 100 Mg Tablet 100 MG PO HS (Reported) Constitutional: other (UNABLE TO OBTAIN FROM PT) Past Saospkm-Llogvr-Xlzrws Hx Patient Social History Alcohol Use: Regular Use (HEAVY USE/ABUSE--MULTIPLE VISITS FOR ALCOHOL INTOXICATION) Recreational Drug Use: Yes (EXTENSIVE POLYSUBSTANCE ABUSE/OVERDOSES--METH, RX DRUGS-MORPHINE, CODEINE, HYDROCODONE, OXYCODONE. HAS BEEN ADMITTED TO [facility] IN PAST. ) Smoking Status: Current Everyday Smoker (1 PPD) Type Used: Cigarettes Former Smoker/When Quit: Recent Foreign Travel: No Contact w/Someone Who Travel: No Recent Infectious Disease Expo: No Recent Hopitalizations: No Immunizations Up To Date Tetanus Booster (TDap): Unknown Date of Pneumonia Vaccine: Apr 26, 2009 Date of Influenza Vaccine: Sep 09, 2012 Seasonal Allergies Seasonal Allergies: No Surgeries HX Surgeries: Yes (TRANSPOSTION/MEDIAN NERVE & CARPAL TUNNEL X 3, URETERAL STENT, LITHOTRIPSY) Surgeries: Gallbladder, Hysterectomy, Orthopedic, Renal, Tubal Ligation Respiratory Hx Respiratory Disorders: Yes Respiratory Disorders: Pneumonia, Chronic Bronchitis, Pulmonary Embolism Cardiovascular Hx Cardiac Disorders: Yes Cardiac Disorders: Hypertension Neurological Hx Neurological Disorders: Yes (PSUEDOSEIZURES) Neurological Disorders: Headaches /Migraines, Seizure Disorder 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 System Hx 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 Disorders: No Sexually Transmitted Disease: No HIV/AIDS: No Female 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 Disorders: Denies 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 Genitourinary Hx Genitourinary Disorders: Yes Genitourinary Disorders: Kidney Stones Gastrointestinal Hx Gastrointestinal Disorders: No Musculoskeletal Hx Musculoskeletal Disorders: Yes (MOST ARE SELF-REPORTED, WITH [place] MEDICAL DOCUMENTATION OF THESE CONDITIONS) Musculoskeletal Disorders: Degenerate Disk Disease, Arthritis, Fibromyalgia, Back Injury, Scoliosis, Chronic Back Pain Endocrine Hx Endocrine Disorders: Yes (MORBID OBESITY) HEENT HX ENT Disorders: Yes (TMJ PROBLEMS PER PT, EXTENSIVE DENTAL CARIES/MISSING TEETH) Cancer Hx Cancer: No Psychosocial Hx Psychiatric Problems: Yes (MOOD DISORDER,POLYSUBSTANCE ABUSE, OVERDOSES, PANIC DISORDER, AGORAPHOBIA) Behavioral Health Disorders: Pseudo Seizures, Sleep Difficulties, Anxiety, Suicide Attempts, Depression Integumentary HX Skin/Integumentary Disorder: No Blood Transfusions Hx Blood Disorders: No Family Medical History Significant Family History: No Pertinent Family Hx Family Medial History: Alcoholism 19 FATHER (grandfather) Alzheimer's disease 19 MOTHER (grandmother) Arthritis 19 FATHER Cardiovascular disease 19 FATHER 19 MOTHER Cataracts 19 MOTHER Coronary thrombosis 19 FATHER Dementia 19 MOTHER (grandparents) Diabetes mellitus 19 MOTHER Drug abuse 19 FATHER Glaucoma 19 FATHER (grandfather) Headache disorder 19 FATHER Hypercholesterolemia 19 FATHER Hypertension 19 FATHER Myocardial infarction 19 FATHER Parkinson's disease 19 MOTHER Prostate cancer 19 MOTHER (uncle brother of mother) Psychosocial problem 19 FATHER Respiratory disorder 19 FATHER (grandfather) Seizure disorder 19 MOTHER No Family History of: AIDS Abdominal aortic aneurysm Vargas's disease Aphasia Asthma Cancer of mouth Colon cancer Completed stroke Congenital disease Congenital heart disease Cystic fibrosis Deafness or hearing loss Dysphasia Fibrocystic disease of breast Gastroenteritis Infertility Kidney disease Neoplasm Severe allergy Thyroid disease Tuberculosis Visual disorder Physical Exam Vital Signs Vital Sign - Last 12Hours 11/01/16 11/01/16 11/01/16 19:15 19:45 21:02 Temp 97.1 Pulse 78 Resp 24 B/P 170/101 Pulse Ox 94 O2 Delivery Nasal Cannula O2 Flow Rate 2 Capillary Refill : Less Than 3 Seconds General Appearance: obese other (PT AGITATED, THRASHING ALL OVER CART. SPEECH MUMBLED/SLURRED AND MOSTLY INCOHERENT WITH A FEW WORDS UNDERSTOOD. PT UNABLE TO ANSWER QUESTIONS OR FOLLOW COMMANDS AT THIS TIME. PT DROWSY AND KEEPS EYES CLOSED. MALODOROUS, UNKEMPT, DIRTY. ) HEENT: other (MOST TEETH MISSING AND REMAINING TEETH DECAYED DOWN TO GUMS. . DRY ORAL MUCOSA.) Respiratory: normal breath sounds no respiratory distress no accessory muscle use Cardiovascular: normal peripheral pulses regular rate, rhythm no murmur Gastrointestinal: non tender soft Extremities: no pedal edema normal capillary refill Neurologic/Psychiatric: no motor/sensory deficits other (MENTATION ABOVE) Appearance/Memory: disheveled Behavior/Eye Contact: uncooperative Skin: normal color warm/dry Laceration Repair : Suture Size: 4-0 Progress/Results/Core Measures Results/Orders Lab Results Laboratory Tests Test 11/01/16 19:16 11/01/16 19:25 11/01/16 22:30 11/01/16 23:05 Range/Units Acetaminophen Level < 10 L < 10 L 10-30 UG/ML Alanine Aminotransferase (ALT/SGPT) 20 0-55 U/L Albumin 3.6 3.2-4.5 G/DL Alkaline Phosphatase 83 40-136 U/L Amylase Level 43 25-125 U/L Anion Gap 13 5-14 MMOL/L Aspartate Amino Transf (AST/SGOT) 18 5-34 U/L BUN/Creatinine Ratio 11 Basophils # (Auto) 0.0 0.0-0.1 10^3/uL Basophils (%) (Auto) 0 0-10 % Blood Urea Nitrogen 8 7-18 MG/DL Calcium Level 9.2 8.5-10.1 MG/DL Carbon Dioxide Level 25 21-32 MMOL/L Chloride Level 103 98-107 MMOL/L Creatinine 0.76 0.60-1.30 MG/DL Eosinophils # (Auto) 0.2 0.0-0.3 10^3/uL Eosinophils (%) (Auto) 2 0-10 % Estimat Glomerular Filtration Rate > 60 Free Thyroxine 0.84 0.70-1.48 NG/DL Glucose Level 98 70-105 MG/DL Hematocrit 45 35-52 % Hemoglobin 15.5 11.5-16.0 G/DL Lymphocytes # (Auto) 4.4 H 1.0-4.0 X 10^3 Lymphocytes (%) (Auto) 32 12-44 % Mean Corpuscular Hemoglobin 30 25-34 PG Mean Corpuscular Hemoglobin Concent 34 32-36 G/DL Mean Corpuscular Volume 88 80-99 FL Mean Platelet Volume 11.0 H 7.4-10.4 FL Monocytes # (Auto) 0.6 0.0-1.0 X 10^3 Monocytes (%) (Auto) 4 0-12 % Neutrophils # (Auto) 8.7 H 1.8-7.8 X 10^3 Neutrophils (%) (Auto) 62 42-75 % Platelet Count 273 130-400 10^3/uL Potassium Level 3.4 L 3.6-5.0 MMOL/L Red Blood Count 5.10 4.35-5.85 10^6/uL Red Cell Distribution Width 13.7 10.0-14.5 % Salicylates Level < 5.0 L 5.0-20.0 MG/DL Serum Alcohol < 10 <10 MG/DL Serum Test, Qualitative NEGATIVE NEGATIVE Sodium Level 141 135-145 MMOL/L TSH Nolan Testing 7.00 H 0.35-4.94 UIU/ML Total Bilirubin 0.3 0.1-1.0 MG/DL Total Protein 7.0 6.4-8.2 G/DL White Blood Count 14.0 H 4.3-11.0 10^3/uL Ur Tricyclic Antidepressants Screen POSITIVE H NEGATIVE Urine Amphetamines Screen NEGATIVE NEGATIVE Urine Bacteria NONE /HPF Urine Barbiturates Screen NEGATIVE NEGATIVE Urine Benzodiazepines Screen POSITIVE H NEGATIVE Urine Bilirubin NEGATIVE NEGATIVE Urine Cannabinoids Screen POSITIVE H NEGATIVE Urine Casts NONE /LPF Urine Clarity SLIGHTLY CLOUDY Urine Cocaine Screen NEGATIVE NEGATIVE Urine Color YELLOW Urine Crystals NONE /LPF Urine Culture Indicated NO Urine Glucose (UA) NEGATIVE NEGATIVE Urine Ketones NEGATIVE NEGATIVE Urine Leukocyte Esterase NEGATIVE NEGATIVE Urine Methadone Screen NEGATIVE NEGATIVE Urine Methamphetamines Screen NEGATIVE NEGATIVE Urine Mucus NEGATIVE /LPF Urine Nitrite NEGATIVE NEGATIVE Urine Opiates Screen NEGATIVE NEGATIVE Urine Oxycodone Screen NEGATIVE NEGATIVE Urine Phencyclidine Screen NEGATIVE NEGATIVE Urine Propoxyphene Screen NEGATIVE NEGATIVE Urine Protein NEGATIVE NEGATIVE Urine RBC RARE /HPF Urine RBC (Auto) NEGATIVE NEGATIVE Urine Specific Tyler 1.010 L 1.016-1.022 Urine Squamous Epithelial Cells 0-2 /HPF Urine Urobilinogen NORMAL NORMAL MG/DL Urine WBC NONE /HPF Urine pH 7 5-9 Don Test YES-POS Arterial Blood Base Excess 4.2 H -2.5-2.5 MMOL/L Arterial Blood HCO3 29 H 23-27 MMOL/L Arterial Blood Oxygen Saturation 97 94-100 % Arterial Blood Partial Pressure CO2 47 H 35-45 MMHG Arterial Blood Partial Pressure O2 79 79-93 MMHG Arterial Blood Total CO2 30.6 21.0-31.0 MMOL/L Arterial Blood pH 7.40 7.37-7.43 Blood Gas Inspired Oxygen 4L Blood Gas Patient Temperature 95.5 Blood Gas Puncture Site RIGHT RADIAL Blood Gas Ventilator Setting NO Lactic Acid Level 1.36 0.50-2.00 MMOL/L Magnesium Level 1.8 1.8-2.4 MG/DL Troponin I < 0.30 <0.30 NG/ML Test 11/02/16 01:20 11/02/16 04:20 Range/Units Don Test YES-POS Arterial Blood Base Excess 5.9 H -2.5-2.5 MMOL/L Arterial Blood HCO3 30 H 23-27 MMOL/L Arterial Blood Oxygen Saturation 97 94-100 % Arterial Blood Partial Pressure CO2 39 35-45 MMHG Arterial Blood Partial Pressure O2 66 L 79-93 MMHG Arterial Blood Total CO2 31.0 21.0-31.0 MMOL/L Arterial Blood pH 7.49 H 7.37-7.43 Blood Gas Inspired Oxygen 3L Blood Gas Patient Temperature 95.6 Blood Gas Puncture Site RIGHT RADIAL Blood Gas Ventilator Setting NO Alanine Aminotransferase (ALT/SGPT) 16 0-55 U/L Albumin 3.2 3.2-4.5 G/DL Alkaline Phosphatase 75 40-136 U/L Anion Gap 10 5-14 MMOL/L Aspartate Amino Transf (AST/SGOT) 13 5-34 U/L BUN/Creatinine Ratio 10 Basophils # (Auto) 0.0 0.0-0.1 10^3/uL Basophils (%) (Auto) 0 0-10 % Blood Urea Nitrogen 7 7-18 MG/DL Calcium Level 8.7 8.5-10.1 MG/DL Carbon Dioxide Level 25 21-32 MMOL/L Chloride Level 105 98-107 MMOL/L Creatinine 0.67 0.60-1.30 MG/DL Eosinophils # (Auto) 0.2 0.0-0.3 10^3/uL Eosinophils (%) (Auto) 1 0-10 % Estimat Glomerular Filtration Rate > 60 Glucose Level 118 H 70-105 MG/DL Hematocrit 45 35-52 % Hemoglobin 14.9 11.5-16.0 G/DL Lymphocytes # (Auto) 3.3 1.0-4.0 X 10^3 Lymphocytes (%) (Auto) 24 12-44 % Magnesium Level 1.9 1.8-2.4 MG/DL Mean Corpuscular Hemoglobin 30 25-34 PG Mean Corpuscular Hemoglobin Concent 34 32-36 G/DL Mean Corpuscular Volume 89 80-99 FL Mean Platelet Volume 10.4 7.4-10.4 FL Monocytes # (Auto) 0.5 0.0-1.0 X 10^3 Monocytes (%) (Auto) 3 0-12 % Neutrophils # (Auto) 9.5 H 1.8-7.8 X 10^3 Neutrophils (%) (Auto) 71 42-75 % Phosphorus Level 3.2 2.3-4.7 MG/DL Platelet Count 238 130-400 10^3/uL Potassium Level 4.1 3.6-5.0 MMOL/L Red Blood Count 4.99 4.35-5.85 10^6/uL Red Cell Distribution Width 13.8 10.0-14.5 % Sodium Level 140 135-145 MMOL/L Total Bilirubin 0.2 0.1-1.0 MG/DL Total Protein 6.2 L 6.4-8.2 G/DL White Blood Count 13.5 H 4.3-11.0 10^3/uL My Orders Orders-TEODORA ROCA DO O2 (11/01/16 19:20) Ua Culture If Indicated (11/01/16 19:20) Thyroid Analyzer (11/01/16 19:20) Drug Screen Stat (Urine) (11/01/16 19:20) Cbc With Automated Diff (11/01/16 19:20) Comprehensive Metabolic Panel (11/01/16 19:20) Amylase (11/01/16 19:20) Alcohol (11/01/16 19:20) Acetaminophen (11/01/16 19:20) Salicylate (11/01/16 19:20) Ekg Tracing (11/01/16 19:20) Monitor-Rhythm Ecg Trace Only (11/01/16 19:20) Hcg,Qualitative Serum (11/01/16 19:20) Saline Lock/Iv-Start (11/01/16 19:20) Ns Iv 1000 Ml (Sodium Chloride 0.9%) (11/01/16 19:20) Naloxone Injection (Narcan Injection) (11/01/16 19:30) Catheter(Urinary) Insert & Ass 03,15 (11/01/16 19:22) Free T4 (Free Thyroxine) (11/01/16 19:16) Ferguson Cath Insertion (11/02/16 01:57) Medications Given in ED Current Medications Medications Dose Ordered Sig/Garry Route Start Time Stop Time Status Last Admin Dose Admin Sodium Chloride 1,000 ml @ 0 mls/hr Q0M ONCE IV 11/01/16 19:20 11/01/16 19:21 DC 11/01/16 20:58 500 MLS/HR Vital Signs/I&O Vital Sign - Last 12Hours 11/01/16 11/01/16 11/01/16 11/01/16 19:15 19:45 21:02 21:08 Temp 97.1 96.0 Pulse 78 66 Resp 24 22 B/P 170/101 170/104 Pulse Ox 94 94 O2 Delivery Nasal Cannula Nasal Cannula O2 Flow Rate 2 4.00 4.00 11/01/16 11/01/16 11/01/16 11/01/16 21:15 22:00 22:23 22:59 Pulse 72 65 64 Resp 24 B/P 179/109 Pulse Ox 96 95 O2 Delivery Nasal Cannula O2 Flow Rate 4.00 4.00 11/01/16 11/02/16 11/02/16 11/02/16 23:00 00:00 00:00 00:00 Temp 95.5 Pulse 72 66 B/P 183/108 164/98 Pulse Ox 100 100 96 O2 Delivery Nasal Cannula Nasal Cannula O2 Flow Rate 4.00 4.00 3.00 11/02/16 11/02/16 11/02/16 11/02/16 01:00 01:00 02:00 03:00 Pulse 83 80 71 66 Resp 24 23 B/P 184/113 174/108 177/112 Pulse Ox 94 95 97 O2 Delivery Nasal Cannula Nasal Cannula Nasal Cannula O2 Flow Rate 4.00 4.00 4.00 11/02/16 11/02/16 11/02/16 11/02/16 03:15 04:00 04:00 05:00 Temp 95.4 Pulse 67 64 Resp 7 19 B/P 174/102 154/102 Pulse Ox 100 98 99 O2 Delivery Nasal Cannula Nasal Cannula O2 Flow Rate 4.00 2.00 4.00 11/02/16 11/02/16 05:02 06:00 Temp 96.0 Pulse 63 Resp 20 B/P 161/103 Pulse Ox 99 O2 Delivery Nasal Cannula Nasal Cannula O2 Flow Rate 2.00 2.00 Blood Pressure Mean: 130 Progress Note : Progress Note NO DETERIORATION IN PT'S CONDITION DURING ER STAY PT SLEEPING SOUNDLY BUT AROUSABLE TO VERBAL AND TACTILE STIMULI, THEN GOES BACK TO SLEEP O2 SATS REMAIN IN UPPER 90'S ECG Initial ECG Impression Time: 19:33 Initial ECG Rate: 81 Initial ECG Rhythm: Normal Sinus Initial ECG Impression: Nonspecific Changes Initial ECG Comparisson: Unchanged Departure Communication Progress Notes 1947--ATTEMPTING TO CONTACT DR. 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 MESSAGE LEFT ON CELL 2019--SPOKE WITH DR. STEVENS, ACCEPTS PT FOR ADMIT. Impression Impression: Primary Impression: Intentional amitriptyline overdose Additional Impressions: Drug overdose Suicide attempt EXTENSIVE HISTORY OF POLYSUBSTANCE ABUSE Disposition: ADMITTED INPATIENT Condition: Stable Decision to Admit Reason: Admit from ER (General) Decision to Admit/Date: Nov 01, 2016 Time/Decision to Admit Time: 20:20 Departure-Patient Inst. Referrals: [facility] (PCP) Primary Care Physician Patient Instructions: ALCOHOL AND SUBSTANCE ABUSE TEODORA ROCA DO Nov 02, 2016 05:22
[2016-11-02] MEDS ORDERED: KCL 20 MEQ TAB (K-DUR) PO SCH (06:00)
[2016-11-02] MEDS ORDERED: POTASSIUM CL 10MEQ/50ML IVPB 50 ML IV SCH (06:00)
[2016-11-02] MEDS ORDERED: MAGNESIUM 1 GM/100 ML IVPB 100 ML IV SCH (06:00)
[2016-11-02] MEDS ORDERED: FLU TRIvalent (5 YOA+) 2016-17 (AFLURIA) 0.5 ML IM ONE (07:00)
[2016-11-02] MEDS ORDERED: CATHETER FLUSH 10 ML SYR IV PRN (07:00)
--- NOTE | 2016-11-02 09:41 | Diagnostic Imaging Report ---
INDICATION: ICU management Portable chest 5:18 AM Heart size and pulmonary vascularity are normal. Lungs are clear. There are no effusions or pneumothoraces. IMPRESSION: Negative chest. No change from two days earlier. Dictated by: Dictated on workstation # [id number]
[2016-11-02] MEDS ORDERED: amLODIPine 5 MG (NORVASC) TAB PO SCH (10:00)
[2016-11-02] MEDS ORDERED: AMIT25TA9 PO (11:17)
[2016-11-02] MEDS ORDERED: DULO30CA48 PO (11:17)
[2016-11-02] MEDS ORDERED: DIPH25TA31 PO (11:20)
--- NOTE | 2016-11-02 11:49 | Short Stay Summary-Hospitalist ---
HPI History of Present Illness: HPI/Chief Complaint CC: Purposeful overdose HPI: This is a 46yoWF clinic pt of [facility] with known hx of emotional problems with suicide attempts and overdoses that presents after taking 20 tablets of Elavil 25mg. Pt A-fib, with elevated BP of 160/103. 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 Patient Interview: Pt states that Eric Land is PCP at [facility]. Pt thinks that she has a close appointment with him already arranged. Pt states that she has been struggling emotionally due to recent of . Physical exam stable. Pt states that she smokes ppd. Pt states confirms that her BP is normally high. Pt uses [facility] , and agrees to begin taking BP meds after Dr. Stevens discusses the need for this with pt. Pt states that she was in the ER last Saturday with elevated BP. Pt requests medicine for anxiety. Scribed by Newton Ferrell under the direct supervision of Dr. Stevens. Source: patient Exam Limitations: no limitations Date Seen 11/02/16 Attending Physician Kalli Stevens DO PCP [facility] Referring Physician Date of Admission Nov 01, 2016 at 20:35 Home Medications & Allergies Home Medications Reviewed patient Home Medication Reconciliation Form Allergies Coded Allergies: NKANo Known Allergies (Unverified Allergy, Mild, 02/14/11) Past Bontqqs-Xiqacp-Upkepi Hx Patient Social History Marrital Status: single Employed/Student: unemployed Alcohol Use: Regular Use (HEAVY USE/ABUSE--MULTIPLE VISITS FOR ALCOHOL INTOXICATION) Recreational Drug Use: Yes (EXTENSIVE POLYSUBSTANCE ABUSE/OVERDOSES--METH, RX DRUGS-MORPHINE, CODEINE, HYDROCODONE, OXYCODONE. HAS BEEN ADMITTED TO [facility] IN PAST. ) Smoking Status: Current Everyday Smoker (1 PPD) Former smoker/When Quit: Type Used: Cigarettes Recent Foreign Travel: No Contact w/other who traveled: No Recent Hopitalizations: No Recent Infectious Disease Expo: No Immunizations Up To Date Tetanus Booster (TDap): Unknown Date of Pneumonia Vaccine: Apr 26, 2009 Date of Influenza Vaccine: Sep 09, 2012 Seasonal Allergies Seasonal Allergies: No Surgeries HX Surgeries: Yes (TRANSPOSTION/MEDIAN NERVE & CARPAL TUNNEL X 3, URETERAL STENT, LITHOTRIPSY) Surgeries: Gallbladder, Hysterectomy, Orthopedic, Renal, Tubal Ligation Respiratory Hx Respiratory Disorders: Yes Cardiovascular Hx Cardiovascular Disorders: Yes Cardiac Disorders: Hypertension Neurological Hx Neurological Disorders: Yes (PSUEDOSEIZURES) Neurological Disorders: Headaches /Migraines, Seizure Disorder 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 System Hx 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 Disorders: No Sexually Transmitted Disease: No HIV/AIDS: No Female 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 Disorders: Denies 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 Genitourinary Hx Genitourinary Disorders: Yes Genitourinary Disorders: Kidney Stones Gastrointestinal Hx Gastrointestinal Disorders: No Musculoskeletal Hx Musculoskeletal Disorders: Yes (MOST ARE SELF-REPORTED, WITH [place] MEDICAL DOCUMENTATION OF THESE CONDITIONS) Musculoskeletal Disorders: Degenerate Disk Disease, Arthritis, Fibromyalgia, Back Injury, Scoliosis, Chronic Back Pain Endocrine Hx Endocrine Disorders: Yes (MORBID OBESITY) HEENT HX ENT Disorders: Yes (TMJ PROBLEMS PER PT, EXTENSIVE DENTAL CARIES/MISSING TEETH) Cancer Hx Cancer: No Psychosocial Hx Psychiatric Problems: Yes (MOOD DISORDER,POLYSUBSTANCE ABUSE, OVERDOSES, PANIC DISORDER, AGORAPHOBIA) Behavioral Health Disorders: Pseudo Seizures, Sleep Difficulties, Anxiety, Suicide Attempts, Depression Integumentary HX Skin/Integumentary Disorder: No Blood Transfusions Hx Blood Disorders: No Family Medical History Significant Family History: No Pertinent Family Hx Family Hx: Alcoholism 19 FATHER (grandfather) Alzheimer's disease 19 MOTHER (grandmother) Arthritis 19 FATHER Cardiovascular disease 19 FATHER 19 MOTHER Cataracts 19 MOTHER Coronary thrombosis 19 FATHER Dementia 19 MOTHER (grandparents) Diabetes mellitus 19 MOTHER Drug abuse 19 FATHER Glaucoma 19 FATHER (grandfather) Headache disorder 19 FATHER Hypercholesterolemia 19 FATHER Hypertension 19 FATHER Myocardial infarction 19 FATHER Parkinson's disease 19 MOTHER Prostate cancer 19 MOTHER (uncle brother of mother) Psychosocial problem 19 FATHER Respiratory disorder 19 FATHER (grandfather) Seizure disorder 19 MOTHER No Family History of: AIDS Abdominal aortic aneurysm [place]'s disease Aphasia Asthma Cancer of mouth Colon cancer Completed stroke Congenital disease Congenital heart disease Cystic fibrosis Deafness or hearing loss Dysphasia Fibrocystic disease of breast Gastroenteritis Infertility Kidney disease Neoplasm Severe allergy Thyroid disease Tuberculosis Visual disorder Review of Systems Constitutional: see HPI EENTM: no symptoms reported Respiratory: no symptoms reported Cardiovascular: no symptoms reported Gastrointestinal: no symptoms reported Genitourinary: no symptoms reported Musculoskeletal: no symptoms reported Skin: no symptoms reported Psychiatric/Neurological: Depressed All Other Systems Reviewed Negative Unless Noted: Yes Physical Exam Physical Exam Vital Signs Vital Sign - Last 12Hours 3/05/1211/01/16 11/01/16 19:15 19:45 21:02 Temp 97.1 Pulse 78 Resp 24 B/P 170/101 Pulse Ox 94 O2 Delivery Nasal Cannula O2 Flow Rate 2 Capillary Refill : Less Than 3 Seconds General Appearance: No Apparent Distress WD/WN Chronically ill Obese Eyes: Bilateral Eye Normal Inspection, Bilateral Eye PERRL HEENT: PERRL/EOMI Normal ENT Inspection Pharynx Normal Neck: Full Range of Motion Normal Inspection Non Tender Supple Carotid Bruit Respiratory: Chest Non Tender Lungs Clear Normal Breath Sounds No Accessory Muscle Use No Respiratory Distress Cardiovascular: Regular Rate, Rhythm No Edema No Gallop No JVD No Murmur Normal Peripheral Pulses Gastrointestinal: Normal Bowel Sounds No Organomegaly No Pulsatile Mass Non Tender Soft Back: Normal Inspection No CVA Tenderness No Vertebral Tenderness Extremity: Normal Capillary Refill Normal Inspection Normal Range of Motion Non Tender No Calf Tenderness No Pedal Edema Neurologic/Psychiatric: Alert Oriented x3 No Motor/Sensory Deficits Normal Mood/Affect Skin: Normal Color Warm/Dry Lymphatic: No Adenopathy Results Results/Procedures Lab Laboratory Tests 11/01/16 19:16 11/02/16 04:20 Short Stay Diagnosis Discharge Diagnosis-Short Stay Admission Diagnosis Assessment: Purposeful overdose with Elavil Depression Smoker HTN Non-compliant with meds Final Discharge Diagnosis Assessment: Purposeful overdose with Elavil Depression Smoker HTN Non-compliant with meds Conclusion Plan Plan: Norvas for BP control discharge home Clinical Quality Measures DVT/VTE Risk/Contraindication: Risk Factor Score Per Nursin RFS Level Per Nursing on Admit: 3=High KALLI STEVENS DO Nov 02, 2016 11:49
[2016-11-02] MEDS ORDERED: AMLO5TAB2 PO (12:50)
--- NOTE | 2016-11-02 12:51 | Discharge Instructions ---
Discharge Instructions Discharge Medications New, Converted or Re-Newed RX: Transmitted to Pharmacy New Medications: Amlodipine Besylate (Amlodipine Besylate) 5 Mg Tablet 5 MG PO DAILY #30 TAB Continued Medications: Amitriptyline HCl (Amitriptyline HCl) 25 Mg Tablet 25-50 MG PO HS TAKES 1-2 (25 MG) TABLETS PRN SLEEP TAB Diphenhydramine HCl (Diphenhydramine HCl) 25 Mg Tablet 75-87.5 MG PO HS TAKES 3-3 & 1/2 (25 MG) TABLETS / TO USE A SECOND LINE AGENT IF AMITRIPTYLINE DOES NOT WORK PRN SLEEP TAB Duloxetine HCl (Duloxetine HCl) 60 Mg Capsule.dr 60 MG PO DAILY TAKES IN CONJUNCTION WITH DULOXETINE 30 MG FOR TOTAL DOSE OF 90 MG Duloxetine HCl (Duloxetine HCl) 30 Mg Capsule.dr 30 MG PO DAILY TAKES IN CONJUCTION WITH DULOXETINE 60 MG FOR A TOTAL DOSE OF 90 MG CAP Patient Instructions Goal/Follow Up Appt: [facility] next week Activity & Diet Discharge Diet: No Restrictions Activity as Tolerated: Yes CIRO STEVENS DO Nov 02, 2016 12:51
[2016-11-02] MEDS ORDERED: diphenhydrAMINE 25 MG TAB (BENADRYL) PO PRN (13:00)
[2016-11-02] MEDS ORDERED: AMITRIPTYLINE 25 MG (ELAVIL) TAB PO PRN (13:00)
[2016-11-03] MEDS ORDERED: DULoxetine 30 MG (CYMBALTA) CAP PO SCH ×2 (09:00)
[2016-11-03] MEDS ORDERED: NON-FORMULARY MEDICATION 1 EA EA (Duloxetine HCl 60 MG) PO SCH (09:00)
[2016-11-03 09:01] LABS: CALCIUM IONIZED 1.14 mmol/L (1.16-1.32); CORRECTED IONIZED CALCIUM 1.16 mmol/L (1.16-1.32)
[2016-11-05 08:40] LABS: CALCIUM PH 7.42
== END 2016-11-02 15:15 | disposition home or self-care (01) | DRG 918 ==
LOC: EDUNIT# 19:12 → ER 19:13 → ICU 20:35
PROVIDERS: ADMIT Internal Medicine; ATTEND Internal Medicine
DX: T43.012A Poisoning by tricyclic antidepressants, intentional self-harm, initial encounter (principal); F32.9 Major depressive disorder, single episode, unspecified; I10 Essential (primary) hypertension; F17.210 Nicotine dependence, cigarettes, uncomplicated; E66.01 Morbid (severe) obesity due to excess calories; Z68.43 Body mass index [BMI] 50.0-59.9, adult; Z91.14 Patient's other noncompliance with medication regimen
CPT/HCPCS: 36415; 51702; 71010; 80053; 80306; 80320; 80329; 81000; 82150; 82330; 82805; 83605; 83735; 84100; 84439; 84443; 84484; 84703; 85025; 87081; 93005; 93041; 96360

== ENCOUNTER 2017-01-01 15:26 | Observation (INO) | payer MEDICAID ==
[~2017-01-01] VITALS: Ht 152.4 cm; Wt 120.7 kg
[~2017-01-01 15:26] MED LIST changes: +AMIT25TA9 PO; +DIPH25TA31 PO; +DULO30CA48 PO
[2017-01-01] MEDS ORDERED: DULO60CA6 PO (16:04)
[2017-01-01] MEDS ORDERED: ALPR0.25 PO (16:04)
[2017-01-01] MEDS ORDERED: DULO30CA3 PO (16:04)
[2017-01-01] MEDS ORDERED: GABA800T PO (16:05)
[2017-01-01] MEDS ORDERED: PROCHLORPERAZINE 10 MG TAB (COMPAZINE) PO STA (16:22)
--- NOTE | 2017-01-01 16:22 | ED Psychosocial ---
General Chief Complaint: Psych/Social Disorder Stated Complaint: PANIC ATTACKS,DEPRESSION,VOMITING,GOUT Nursing Triage Note: PT STATES HER DAUGHTER MADE HER COME INTO THE ED TODAY. PT STATES SHE HAS BEEN THROWING UP SINCE YESTERDAY. PT STATES SHE WAS ON CYMBALTA FOR DEPRESSION, AND HER DR. Arango'Cd HER CYMBALTA MEDICATION. PT STATES SHE THINKS SHE SEES PEOPLE AND OBJECTS BUT THEY AREN'T THERE. History of Present Illness Time seen by provider: 16:20 Initial Comments Patient initially reports presenting to the emergency department for vomiting that began yesterday. She's had a previous cholecystectomy. She does report using marijuana that was recommended by her nephew for the vomiting. She has recently had her medications adjusted by both [facility] and [facility]. She does report that she is having some hallucinations. She denies any suicidal or homicidal thoughts at this time. Timing/Duration: yesterday Severity: mild Associated Symptoms: anxiety, impaired concentration Allergies and Home Medications Allergies Coded Allergies: No Known Drug Allergies (Unverified , 01/01/17) Home Medications Alprazolam 0.25 Mg Tablet, 0.25 MG PO, (Reported) Amlodipine Besylate 5 Mg Tablet, 5 MG PO DAILY, #30 Prescribed by: CIRO STEVENS on 11/02/16 1250 Diphenhydramine HCl 25 Mg Tablet, 75-87.5 MG PO HS PRN for SLEEP, (Reported) TAKES 3-3 & 1/2 (25 MG) TABLETS / TO USE A SECOND LINE AGENT IF AMITRIPTYLINE DOES NOT WORK Duloxetine HCl 30 Mg Capsule.dr, 30 MG PO, (Reported) Duloxetine HCl 60 Mg Capsule.dr, 60 MG PO, (Reported) Gabapentin 800 Mg Tablet, 800 MG PO, (Reported) Constitutional: no symptoms reported, see HPI EENTM: no symptoms reported, see HPI Respiratory: no symptoms reported, see HPI Cardiovascular: no symptoms reported, see HPI Gastrointestinal: see HPI, nausea, vomiting Genitourinary: no symptoms reported, see HPI Musculoskeletal: no symptoms reported, see HPI Skin: no symptoms reported, see HPI Psychiatric/Neurological: See HPI, Anxiety, Depressed, Emotional Problems All Other Systems Reviewed Negative Unless Noted: Yes Past Wkxebty-Ypnbzw-Avbtit Hx Patient Social History Alcohol Use: Past History Recreational Drug Use: Yes Drug of Choice: POT, OXY, MORPHINE Smoking Status: Current Everyday Smoker Type Used: Cigarettes 2nd Hand Smoke Exposure: Yes Recent Foreign Travel: No Contact w/Someone Who Travel: No Recent Infectious Disease Expo: No Recent Hopitalizations: No Immunizations Up To Date Tetanus Booster (TDap): Unknown Date of Pneumonia Vaccine: Apr 26, 2009 Date of Influenza Vaccine: Sep 09, 2012 Seasonal Allergies Seasonal Allergies: No Surgeries HX Surgeries: Yes (TRANSPOSTION/MEDIAN NERVE & CARPAL TUNNEL X 3, URETERAL STENT, LITHOTRIPSY) Surgeries: Gallbladder, Hysterectomy, Orthopedic, Renal, Tubal Ligation Respiratory Hx Respiratory Disorders: Yes Respiratory Disorders: Pneumonia, Chronic Bronchitis, Pulmonary Embolism Cardiovascular Hx Cardiac Disorders: Yes Cardiac Disorders: Hypertension Neurological Hx Neurological Disorders: Yes (PSUEDOSEIZURES) Neurological Disorders: Headaches /Migraines, Seizure Disorder 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 System Hx 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 Disorders: No Sexually Transmitted Disease: No HIV/AIDS: No Female 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 Disorders: 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 Genitourinary Hx Genitourinary Disorders: Yes Genitourinary Disorders: Kidney Stones Gastrointestinal Hx Gastrointestinal Disorders: No Musculoskeletal Hx Musculoskeletal Disorders: Yes (MOST ARE SELF-REPORTED, WITH [place] MEDICAL DOCUMENTATION OF THESE CONDITIONS) Musculoskeletal Disorders: Degenerate Disk Disease, Arthritis, Fibromyalgia, Back Injury, Scoliosis, Chronic Back Pain Endocrine Hx Endocrine Disorders: Yes (MORBID OBESITY) HEENT HX ENT Disorders: Yes (TMJ PROBLEMS PER PT, EXTENSIVE DENTAL CARIES/MISSING TEETH) Cancer Hx Cancer: No Psychosocial Hx Psychiatric Problems: Yes Behavioral Health Disorders: Pseudo Seizures, Anxiety, Depression Integumentary HX Skin/Integumentary Disorder: No Blood Transfusions Hx Blood Disorders: No Reviewed Nursing Assessment Reviewed/Agree w Nursing PMH: Yes Family Medical History Significant Family History: No Pertinent Family Hx Family Medial History: Alcoholism 19 FATHER (grandfather) Alzheimer's disease 19 MOTHER (grandmother) Arthritis 19 FATHER Cardiovascular disease 19 FATHER 19 MOTHER Cataracts 19 MOTHER Coronary thrombosis 19 FATHER Dementia 19 MOTHER (grandparents) Diabetes mellitus 19 MOTHER Drug abuse 19 FATHER Glaucoma 19 FATHER (grandfather) Headache disorder 19 FATHER Hypercholesterolemia 19 FATHER Hypertension 19 FATHER Myocardial infarction 19 FATHER Parkinson's disease 19 MOTHER Prostate cancer 19 MOTHER (uncle brother of mother) Psychosocial problem 19 FATHER Respiratory disorder 19 FATHER (grandfather) Seizure disorder 19 MOTHER No Family History of: AIDS Abdominal aortic aneurysm [place]'s disease Aphasia Asthma Cancer of mouth Colon cancer Completed stroke Congenital disease Congenital heart disease Cystic fibrosis Deafness or hearing loss Dysphasia Fibrocystic disease of breast Gastroenteritis Infertility Kidney disease Neoplasm Severe allergy Thyroid disease Tuberculosis Visual disorder Physical Exam Vital Signs Vital Sign - Last 12Hours 01/01/17 01/01/17 15:41 19:50 Temp 99.4 Pulse 107 Resp 24 B/P (MAP) 102/95 Pulse Ox 97 O2 Delivery Room Air Capillary Refill : Less Than 3 Seconds General Appearance: WD/WN, mild distress (difficulty concentrating, thought processes are random.) HEENT: PERRL/EOMI, normal ENT inspection, TMs normal, pharynx normal Neck: non-tender, full range of motion, supple, normal inspection, No lymphadenopathy (R), No lymphadenopathy (L) Respiratory: chest non-tender, lungs clear, normal breath sounds Cardiovascular: normal peripheral pulses, regular rate, rhythm, no murmur Gastrointestinal: normal bowel sounds, soft, distended, No guarding, No rebound , tenderness (generalized) Extremities: normal range of motion, non-tender, normal inspection, no pedal edema, no calf tenderness Neurologic/Psychiatric: no motor/sensory deficits, alert, oriented x 3 Appearance/Memory: denies illness, disheveled, impaired insight Behavior/Eye Contact: cooperative, increased rate of speech Thoughts/Hallucinations: no apparent hallucination, flight of ideas Skin: normal color, warm/dry Lymphatic: no adenopathy Laceration Repair : Suture Size: 4-0 Progress/Results/Core Measures Results/Orders Lab Results Laboratory Tests Test 01/01/17 16:43 01/01/17 17:35 Range/Units White Blood Count 16.2 H 4.3-11.0 10^3/uL Red Blood Count 4.48 4.35-5.85 10^6/uL Hemoglobin 13.5 11.5-16.0 G/DL Hematocrit 40 35-52 % Mean Corpuscular Volume 89 80-99 FL Mean Corpuscular Hemoglobin 30 25-34 PG Mean Corpuscular Hemoglobin Concent 34 32-36 G/DL Red Cell Distribution Width 14.5 10.0-14.5 % Platelet Count 241 130-400 10^3/uL Mean Platelet Volume 10.6 H 7.4-10.4 FL Neutrophils (%) (Auto) 94 H 42-75 % Lymphocytes (%) (Auto) 3 L 12-44 % Monocytes (%) (Auto) 3 0-12 % Eosinophils (%) (Auto) 0 0-10 % Basophils (%) (Auto) 0 0-10 % Neutrophils # (Auto) 15.2 H 1.8-7.8 X 10^3 Lymphocytes # (Auto) 0.5 L 1.0-4.0 X 10^3 Monocytes # (Auto) 0.5 0.0-1.0 X 10^3 Eosinophils # (Auto) 0.0 0.0-0.3 10^3/uL Basophils # (Auto) 0.0 0.0-0.1 10^3/uL Neutrophils % (Manual) 83 % Lymphocytes % (Manual) 5 % Monocytes % (Manual) 3 % Eosinophils % (Manual) 0 % Basophils % (Manual) 0 % Metamyelocytes % 1 % Band Neutrophils 8 % Blood Morphology Comment NORMAL Prothrombin Time 14.8 H 12.2-14.7 SEC INR Comment 1.2 0.8-1.4 Sodium Level 137 135-145 MMOL/L Potassium Level 4.1 3.6-5.0 MMOL/L Chloride Level 100 98-107 MMOL/L Carbon Dioxide Level 23 21-32 MMOL/L Anion Gap 14 5-14 MMOL/L Blood Urea Nitrogen 24 H 7-18 MG/DL Creatinine 1.73 H 0.60-1.30 MG/DL Estimat Glomerular Filtration Rate 32 BUN/Creatinine Ratio 14 Glucose Level 93 70-105 MG/DL Calcium Level 9.5 8.5-10.1 MG/DL Total Bilirubin 0.5 0.1-1.0 MG/DL Aspartate Amino Transf (AST/SGOT) 604 H 5-34 U/L Alanine Aminotransferase (ALT/SGPT) 327 H 0-55 U/L Alkaline Phosphatase 133 40-136 U/L Total Protein 6.7 6.4-8.2 G/DL Albumin 3.6 3.2-4.5 G/DL Amylase Level 18 L 25-125 U/L Lipase 10 8-78 U/L Salicylates Level < 5.0 L 5.0-20.0 MG/DL Acetaminophen Level < 10 L 10-30 UG/ML Serum Alcohol < 10 <10 MG/DL Urine Color ALAN H Urine Clarity CLEAR Urine pH 5 5-9 Urine Specific [place] 1.025 H 1.016-1.022 Urine Protein 3+ H NEGATIVE Urine Glucose (UA) NEGATIVE NEGATIVE Urine Ketones 1+ H NEGATIVE Urine Nitrite NEGATIVE NEGATIVE Urine Bilirubin 1+ H NEGATIVE Urine Urobilinogen 4 H NORMAL MG/DL Urine Leukocyte Esterase 1+ H NEGATIVE Urine RBC (Auto) 1+ H NEGATIVE Urine RBC 0-2 /HPF Urine WBC 5-10 H /HPF Urine Squamous Epithelial Cells 10-25 H /HPF Urine Crystals PRESENT H /LPF Urine Amorphous Sediment MOD JAOQUÍN URATES H /LPF Urine Bacteria MODERATE H /HPF Urine Casts PRESENT /LPF Urine Coarse Granular Casts 2-5 H /LPF Urine Mucus MODERATE H /LPF Urine Culture Indicated YES Urine Opiates Screen NEGATIVE NEGATIVE Urine Oxycodone Screen NEGATIVE NEGATIVE Urine Methadone Screen NEGATIVE NEGATIVE Urine Propoxyphene Screen NEGATIVE NEGATIVE Urine Barbiturates Screen NEGATIVE NEGATIVE Ur Tricyclic Antidepressants Screen NEGATIVE NEGATIVE Urine Phencyclidine Screen NEGATIVE NEGATIVE Urine Amphetamines Screen POSITIVE H NEGATIVE Urine Methamphetamines Screen POSITIVE H NEGATIVE Urine Benzodiazepines Screen POSITIVE H NEGATIVE Urine Cocaine Screen NEGATIVE NEGATIVE Urine Cannabinoids Screen POSITIVE H NEGATIVE My Orders Orders - [facility] [employer]ORERO[employer] KEEPER Ua Culture If Indicated (01/01/17 16:20) Cbc With Automated Diff (01/01/17 16:20) Comprehensive Metabolic Panel (01/01/17 16:20) Alcohol (01/01/17 16:20) Drug Screen Stat (Urine) (01/01/17 16:20) Acetaminophen (01/01/17 16:20) Salicylate (01/01/17 16:20) Ekg Tracing (01/01/17 16:20) Saline Lock/Iv-Start (01/01/17 16:20) Prochlorperazine Tablet (Compazine Table (01/01/17 16:22) Manual Differential (01/01/17 16:43) Ammonia Inhalation (Ammonia Inhalation) (01/01/17 16:54) Saline Lock/Iv-Start (01/01/17 17:58) Ns Iv 1000 Ml (Sodium Chloride 0.9%) (01/01/17 17:58) Chest Pa/Lat (2 View) (01/01/17 18:01) Urine Culture (01/01/17 17:35) Amylase (01/01/17 18:12) Lipase (01/01/17 18:12) Protime With Inr (01/01/17 18:12) Cyclobenzaprine Tablet (Flexeril Tablet) (01/01/17 18:25) Levofloxacin Tablet (Levaquin Tablet) (01/01/17 18:43) Foot, Left, 3 Views (01/01/17 19:28) Medications Given in ED Current Medications Medications Dose Ordered Sig/Garry Route Start Time Stop Time Status Last Admin Dose Admin Ammonia (Aromatic Spirit) 0.33 ml STK-MED ONCE .ROUTE 01/01/17 16:54 01/01/17 16:58 DC 01/01/17 16:55 0.33 ML Sodium Chloride 1,000 ml @ 0 mls/hr Q0M ONCE IV 01/01/17 17:58 01/01/17 17:59 DC 01/01/17 18:57 100 MLS/HR Vital Signs/I&O Vital Sign - Last 12Hours 01/01/17 01/01/17 01/01/17 01/01/17 15:41 19:50 20:10 20:39 Temp 99.4 98.8 97.4 Pulse 107 91 86 Resp 24 20 20 B/P (MAP) 102/95 118/56 Pulse Ox 97 93 95 O2 Delivery Room Air Room Air Blood Pressure Mean: 97 Progress Note : Time: 16:20 Progress Note Initial evaluation completed, will obtain labs and EKG. Compazine 10 mg by mouth for nausea. 0 labs show WBC of 16.2, hemoglobin 13.5, hematocrit 40. Improved time 14.8, INR 1.2. BUNs 24, creatinine 1.73, AST 604, ALT 327 (in comparison to labs done on 10/31/16, when her AST 14 and ALT 21.) Toxicology positive for amphetamines, methamphetamines, benzodiazepines and cannabinoids. Salicylate less than 5, Acetaminophen less than 10 and serum alcohol less than 10. 1745 NS I L IV. 1809 discussed patient's findings with Dr. Lindsey. Agreed with need for admission, observation, for follow-up on labs morning. We'll also obtain an ultrasound of the liver tomorrow morning. Begin treatment with Levaquin 500 mg by mouth for urinary tract infection. 1919 nursing staff reports they entered the patient's room and she was sitting on the floor. She reports that she slid off the bed and landed on her sacrum. She denies pain in her hips, pelvis or but talks. She does report pain in her left fifth toe. X-ray will be obtained of the left foot. Patient taken to fourth floor for admission. 1929 x-ray of the left foot was negative for fracture or acute bony abnormality. ECG Initial ECG Impression Date: January 01, 2017 Initial ECG Impression Time: 16:34 Initial ECG Rate: 96 Initial ECG Rhythm: Normal Sinus Initial ECG Intervals: Normal Initial ECG Intervals CA 132, QRS D 94, QT 336, QTc 425. [place] P 37, QRS -31, T 23 Initial ECG Impression: Normal Initial ECG Comparisson: Unchanged Comment Reviewed with Dr. Oviedo, agreed with interpretation. Diagnostic Imaging Diagonstic Imaging: Xray Plain Films/CT/US/NM/MRI: chest Comments NAME: TERENCE FUNK [facility] REC#: [id number] PT STATUS: REG ER : 1970 PHYSICIAN: JAMES DIA ADMIT DATE: 01/01/17/ER Signed Date of Exam: 01/01/17 CHEST PA/LAT (2 VIEW) INDICATION: Shortness of air with exertion for quite a while. Panic attacks. COMPARISON STUDY: Chest November 02. FINDINGS: Frontal and lateral views of the chest demonstrates scoliosis. The lungs are clear. The heart, mediastinum and pulmonary vascularity are normal. IMPRESSION: Scoliosis is present with no acute findings. Dictated by: Dictated on workstation # [id number] Dict: 01/01/171827 Trans: 01/01/171830 Interpreted by: JP DAMON MD Electronically signed by: JP DAMON MD 01/01/171830 NAME: TERENCE FUNK [facility] REC#: [id number] PT STATUS: ADM Amber : 1970 PHYSICIAN: JAMES DIA ADMIT DATE: 01/01/17/4TH Draft Date of Exam:01/01/17 FOOT, LEFT, 3 VIEWS INDICATION: Pain after fall. 3 views were obtained. FINDINGS: There is degenerative spurring of the calcaneus. The alignment is normal. There is no fracture or dislocation. The soft tissues are unremarkable. IMPRESSION: Degenerative spurring of the calcaneus, otherwise unremarkable. Dictated on workstation # [id number] Dict: 01/01/172001 Trans: 01/01/172008 [facility] [id number] Interpreted by: FACUNDO MEEHAN Electronically signed by: Departure Impression Disposition: ADMITTED INPATIENT Decision to Admit Reason: Admit from ER (General) Time/Decision to Admit Time: 17:30 Departure-Patient Inst. Decision time for Depature: 16:45 Referrals: HARVEY LINDSEY DO (PCP/Family) Primary Care Physician Add. Discharge Instructions: 1. Appointment for 3:15 SatJanuary 02 at [facility]. 2. Keep appointment with [facility] her medication management scheduled for tomorrow. All discharge instructions reviewed with patient and/or family. Voiced understanding. Copy Copies To 1: AFSHAN DEL VALLE MD, AMY ARNP January 01, 2017 16:22
[2017-01-01 16:50] LABS: BASOPHILS % (AUTO) 0 % (0-10); EOSINOPHILS % (AUTO) 0 % (0-10); LYMPHOCYTES # (AUTO) 0.5 X 10^3 (1.0-4.0); LYMPHOCYTES % (AUTO) 3 % (12-44); MEAN CORPUSCULAR HEMOGLOBIN 30 PG (25-34); MEAN CORPUSCULAR HGB CONC 34 G/DL (32-36); MEAN CORPUSCULAR VOLUME 89 FL (80-99); MEAN PLATELET VOLUME 10.6 FL (7.4-10.4); MONOCYTES # (AUTO) 0.5 X 10^3 (0.0-1.0); MONOCYTES % (AUTO) 3 % (0-12); NEUTROPHILS # (AUTO) 15.2 X 10^3 (1.8-7.8); NEUTROPHILS % (AUTO) 94 % (42-75); PLATELET COUNT 241 10^3/uL (130-400); RED BLOOD COUNT 4.48 10^6/uL (4.35-5.85); RED CELL DISTRIBUTION WIDTH 14.5 % (10.0-14.5); WHITE BLOOD COUNT 16.2 10^3/uL (4.3-11.0)
[2017-01-01] MEDS ORDERED: AMMONIA INHALATION 0.33 ML AMP ONE (16:54)
[2017-01-01 17:08] LABS: BAND NEUTROPHILS 8 %; BASOPHILS % (MANUAL) 0 %; EOSINOPHILS % (MANUAL) 0 %; LYMPHOCYTES % (MANUAL) 5 %; METAMYELOCYTES % 1 %; NEUTROPHILS % (MANUAL) 83 %
[2017-01-01 17:11] LABS: ALANINE AMINOTRANSFERASE 327 U/L (0-55); ALBUMIN 3.6 G/DL (3.2-4.5); ANION GAP 14 MMOL/L (5-14); ASPARTATE AMINO TRANSFERASE 604 U/L (5-34); BILIRUBIN,TOTAL 0.5 MG/DL (0.1-1.0); BLOOD UREA NITROGEN 24 MG/DL (7-18); BUN/CREATININE RATIO 14; CALCIUM 9.5 MG/DL (8.5-10.1); CARBON DIOXIDE 23 MMOL/L (21-32); CHLORIDE 100 MMOL/L (98-107); CREATININE SERUM 1.73 MG/DL (0.60-1.30); GFR ESTIMATED 32; GLUCOSE 93 MG/DL (70-105); POTASSIUM 4.1 MMOL/L (3.6-5.0); SALICYLATE < 5.0 MG/DL (5.0-20.0); SODIUM 137 MMOL/L (135-145); TOTAL PROTEIN 6.7 G/DL (6.4-8.2)
[2017-01-01 17:13] LABS: ACETAMINOPHEN < 10 UG/ML (10-30); ALCOHOL < 10 MG/DL (<10)
[2017-01-01 17:48] LABS: KETONES,URINE 1+ (NEGATIVE); LEUKOCYTE ESTERASE ,URINE 1+ (NEGATIVE); NITRITE,URINE NEGATIVE (NEGATIVE); PH,URINE 5 (5-9); PROTEIN,URINE 3+ (NEGATIVE); UROBILINOGEN,URINE 4 MG/DL (NORMAL)
[2017-01-01] MEDS ORDERED: NS IV 1000 ML 1,000 ML IV ONE (17:58)
[2017-01-01 18:05] LABS: BILIRUBIN,URINE 1+ (NEGATIVE)
[2017-01-01] MEDS ORDERED: CYCLOBENZAPRINE 10 MG (FLEXERIL) TAB PO STA (18:25)
[2017-01-01 18:30] LABS: INR 1.2 (0.8-1.4); PROTHROMBIN TIME PATIENT 14.8 SEC (12.2-14.7)
--- NOTE | 2017-01-01 18:31 | Diagnostic Imaging Report ---
INDICATION: Shortness of air with exertion for quite a while. Panic attacks. COMPARISON STUDY: Chest November 02. FINDINGS: Frontal and lateral views of the chest demonstrates scoliosis. The lungs are clear. The heart, mediastinum and pulmonary vascularity are normal. IMPRESSION: Scoliosis is present with no acute findings. Dictated by: Dictated on workstation # [id number]
[2017-01-01 18:39] LABS: AMYLASE 18 U/L (25-125); LIPASE 10 U/L (8-78)
[2017-01-01] MEDS ORDERED: LEVOFLOXACIN 500 MG TAB (LEVAQUIN) PO STA (18:43)
--- NOTE | 2017-01-01 20:09 | Diagnostic Imaging Report ---
INDICATION: Pain after fall. 3 views were obtained. FINDINGS: There is degenerative spurring of the calcaneus. The alignment is normal. There is no fracture or dislocation. The soft tissues are unremarkable. IMPRESSION: Degenerative spurring of the calcaneus, otherwise unremarkable. Dictated by: Dictated on workstation # [id number]
[2017-01-01 20:10] VITALS: BP 118/56
[2017-01-01] MEDS ORDERED: ACETAMINOPHEN 325 MG TABLET/CAPLET (TYLENOL) PO PRN (20:15)
[2017-01-01] MEDS ORDERED: ONDANSETRON 4 MG/2 ML (SDV) Z0FRAN IV PRN (20:15)
[2017-01-01] MEDS ORDERED: CATHETER FLUSH 10 ML SYR IV PRN (20:15)
[2017-01-01] MEDS: NS IV 1000 ML 1,000 ML IV SCH (20:35)
[2017-01-01] MEDS: ALPRAZolam 0.5 MG (XANAX) TAB PO PRN (20:49)
[2017-01-02] VITALS: BP 113/58
[2017-01-02] MEDS: NS IV 1000 ML 1,000 ML IV SCH ×2 (00:09→20:01)
[2017-01-02 04:00] VITALS: BP 110/54
[2017-01-02] MEDS: ALPRAZolam 0.5 MG (XANAX) TAB PO PRN ×3 (04:30→21:13)
[2017-01-02 06:46] LABS: BASOPHILS % (AUTO) 0 % (0-10); EOSINOPHILS # (AUTO) 0.1 10^3/uL (0.0-0.3); EOSINOPHILS % (AUTO) 0 % (0-10); LYMPHOCYTES # (AUTO) 1.4 X 10^3 (1.0-4.0); LYMPHOCYTES % (AUTO) 6 % (12-44); MEAN CORPUSCULAR HEMOGLOBIN 30 PG (25-34); MEAN CORPUSCULAR HGB CONC 33 G/DL (32-36); MEAN CORPUSCULAR VOLUME 90 FL (80-99); MEAN PLATELET VOLUME 11.1 FL (7.4-10.4); MONOCYTES # (AUTO) 1.3 X 10^3 (0.0-1.0); MONOCYTES % (AUTO) 5 % (0-12); NEUTROPHILS # (AUTO) 22.8 X 10^3 (1.8-7.8); NEUTROPHILS % (AUTO) 89 % (42-75); PLATELET COUNT 212 10^3/uL (130-400); RED BLOOD COUNT 4.33 10^6/uL (4.35-5.85); WHITE BLOOD COUNT 25.6 10^3/uL (4.3-11.0)
[2017-01-02 07:15] LABS: ALANINE AMINOTRANSFERASE 225 U/L (0-55); ALBUMIN 3.2 G/DL (3.2-4.5); ANION GAP 12 MMOL/L (5-14); ASPARTATE AMINO TRANSFERASE 206 U/L (5-34); BILIRUBIN,TOTAL 0.7 MG/DL (0.1-1.0); BLOOD UREA NITROGEN 23 MG/DL (7-18); BUN/CREATININE RATIO 28; CALCIUM 8.6 MG/DL (8.5-10.1); CARBON DIOXIDE 24 MMOL/L (21-32); CHLORIDE 103 MMOL/L (98-107); CREATININE SERUM 0.83 MG/DL (0.60-1.30); GFR ESTIMATED > 60; GLUCOSE 88 MG/DL (70-105); POTASSIUM 3.4 MMOL/L (3.6-5.0); SODIUM 139 MMOL/L (135-145); TOTAL PROTEIN 6.3 G/DL (6.4-8.2)
--- NOTE | 2017-01-02 07:21 | History & Physicial ---
History of Present Illness History of Present Illness Reason for visit/HPI patient came out to the emergency room due to her daughter making to come out. Patient was throwing up yesterday . Patient seen people and objects that were not there. Patient having pain in the abdominal fold. Patient's urine shows positive amphetamine, methamphetamine, benzodiazepines diazepam, and cannabis. Patient admits to taking marijuana for vomiting. Patient recently taken off of Cymbalta. Patient's liver tests elevated, renal insufficiency, an elevated white blood cell count. Previous surgeries hysterectomy, 3 carpal tunnel, gallbladder surgery and kidney stone and stent and removal of stent. Patient not running an elevated temperature Date of Admission January 01, 2017 at 18:15 I consulted on this patient on 01/02/17 07:15 Attending Physician Eliot Gong DO Admitting Physician Eliot Gong DO Consult Allergies and Home Medications Allergies Coded Allergies: No Known Drug Allergies (Unverified , 01/01/17) Home Medications Alprazolam 0.25 Mg Tablet, 0.25 MG PO, (Reported) Amlodipine Besylate 5 Mg Tablet, 5 MG PO DAILY, #30 Prescribed by: CIRO STEVENS on 11/02/16 1250 Diphenhydramine HCl 25 Mg Tablet, 75-87.5 MG PO HS PRN for SLEEP, (Reported) TAKES 3-3 & 1/2 (25 MG) TABLETS / TO USE A SECOND LINE AGENT IF AMITRIPTYLINE DOES NOT WORK Duloxetine HCl 30 Mg Capsule.dr, 30 MG PO, (Reported) Duloxetine HCl 60 Mg Capsule.dr, 60 MG PO, (Reported) Gabapentin 800 Mg Tablet, 800 MG PO, (Reported) Past Torfvhw-Xdyubq-Vyjwli Hx Patient Social History Alcohol Use: Past History Recreational Drug Use: Yes Drug of Choice: meth, thc Smoking Status: Current Everyday Smoker Type Used: Cigarettes 2nd Hand Smoke Exposure: Yes Physical Abuse Screen: No Sexual Abuse: No Recent Foreign Travel: No Contact w/other who traveled: No Recent Hopitalizations: No Recent Infectious Disease Expo: No Immunizations Up To Date Tetanus Booster (TDap): Unknown Date of Pneumonia Vaccine: Apr 26, 2015 Date of Influenza Vaccine: Sep 09, 2012 Seasonal Allergies Seasonal Allergies: No Surgeries HX Surgeries: Yes (TRANSPOSTION/MEDIAN NERVE & CARPAL TUNNEL X 3, URETERAL STENT, LITHOTRIPSY) Surgeries: Gallbladder, Hysterectomy, Orthopedic, Renal, Tubal Ligation Respiratory Hx Respiratory Disorders: Yes Cardiovascular Hx Cardiovascular Disorders: Yes Cardiac Disorders: Hypertension Neurological Hx Neurological Disorders: Yes (PSUEDOSEIZURES) Neurological Disorders: Headaches /Migraines, Seizure Disorder 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 System Hx 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 Disorders: No Sexually Transmitted Disease: No HIV/AIDS: No 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 Genitourinary Hx Genitourinary Disorders: Yes Genitourinary Disorders: Kidney Stones Gastrointestinal Hx Gastrointestinal Disorders: No Musculoskeletal Hx Musculoskeletal Disorders: Yes (MOST ARE SELF-REPORTED, WITH [place] MEDICAL DOCUMENTATION OF THESE CONDITIONS) Musculoskeletal Disorders: Degenerate Disk Disease, Arthritis, Fibromyalgia, Back Injury, Scoliosis, Chronic Back Pain Endocrine Hx Endocrine Disorders: Yes (MORBID OBESITY) HEENT HX ENT Disorders: Yes (TMJ PROBLEMS PER PT, EXTENSIVE DENTAL CARIES/MISSING TEETH) Cancer Hx Cancer: No Psychosocial Hx Psychiatric Problems: Yes Behavioral Health Disorders: Pseudo Seizures, Sleep Difficulties, Anxiety, Depression Integumentary HX Skin/Integumentary Disorder: No Blood Transfusions Hx Blood Disorders: No Reviewed Nursing Assessment Reviewed/Agree w Nursing PMH: Yes Family Medical History Significant Family History: No Pertinent Family Hx Family Hx: Alcoholism 19 FATHER (grandfather) Alzheimer's disease 19 MOTHER (grandmother) Arthritis 19 FATHER Cardiovascular disease 19 FATHER 19 MOTHER Cataracts 19 MOTHER Coronary thrombosis 19 FATHER Dementia 19 MOTHER (grandparents) Diabetes mellitus 19 MOTHER Drug abuse 19 FATHER Glaucoma 19 FATHER (grandfather) Headache disorder 19 FATHER Hypercholesterolemia 19 FATHER Hypertension 19 FATHER Myocardial infarction 19 FATHER Parkinson's disease 19 MOTHER Prostate cancer 19 MOTHER (uncle brother of mother) Psychosocial problem 19 FATHER Respiratory disorder 19 FATHER (grandfather) Seizure disorder 19 MOTHER No Family History of: AIDS Abdominal aortic aneurysm [place]'s disease Aphasia Asthma Cancer of mouth Colon cancer Completed stroke Congenital disease Congenital heart disease Cystic fibrosis Deafness or hearing loss Dysphasia Fibrocystic disease of breast Gastroenteritis Infertility Kidney disease Neoplasm Severe allergy Thyroid disease Tuberculosis Visual disorder Constitutional: weakness EENTM: no symptoms reported Respiratory: no symptoms reported Cardiovascular: no symptoms reported Gastrointestinal: nausea, vomiting Genitourinary: no symptoms reported Psychiatric/Neurological: Other (hearing voices that are not there hallucinations) Physical Exam Vital Signs Vital Sign - Last 12Hours 01/01/17 01/01/17 15:41 19:50 Temp 99.4 Pulse 107 Resp 24 B/P (MAP) 102/95 Pulse Ox 97 O2 Delivery Room Air Capillary Refill : Less Than 3 Seconds General Appearance: No Apparent Distress, WD/WN Eyes: Bilateral Eye Normal Inspection HEENT: Normal ENT Inspection Neck: Full Range of Motion, Normal Inspection, Non Tender Respiratory: Chest Non Tender, Lungs Clear, Normal Breath Sounds, No Accessory Muscle Use, No Respiratory Distress Cardiovascular: Regular Rate, Rhythm, No Murmur Gastrointestinal: Non Tender, Soft, Other (name by abdominal folds inflame) Assessment/Plan Assessment and Plan urinary tract infection. Hallucination. Renal insufficiency. Elevated liver tests. Leukocytosis. Marijuana usage. Amphetamine positive. Vomiting. Problems: Clinical Quality Measures DVT/VTE Risk/Contraindication: Risk Factor Score Per Nursin RFS Level Per Nursing on Admit: 4+=Very High ELIOT GONG DO January 02, 2017 07:21
[2017-01-02] MEDS ORDERED: VANCOMYCIN INJECTION 2,000 MG in NS IV 500 ML 500 ML IV NR (07:30)
[2017-01-02 07:52] LABS: BAND NEUTROPHILS 50 %; BASOPHILS % (MANUAL) 0 %; EOSINOPHILS % (MANUAL) 1 %; LYMPHOCYTES % (MANUAL) 8 %; NEUTROPHILS % (MANUAL) 37 %
[2017-01-02 07:53] LABS: ANISOCYTOSIS SLIGHT; MYELOCYTES % 3 %
[2017-01-02 08:00] VITALS: BP 107/73
[2017-01-02] MEDS: MUPIROCIN 2% OINT 22 GM (BACTROBAN) TUBE TOP SCH ×2 (08:18→20:04)
[2017-01-02] MEDS: NYSTATIN CREAM (MYCOSTATIN) 30 GM TUBE TP SCH ×3 (08:18→20:04)
[2017-01-02] MEDS: ENOXAPARIN 40 MG/0.4 ML (LOVENOX) SYR SC SCH (08:23)
--- NOTE | 2017-01-02 09:30 | Diagnostic Imaging Report ---
EXAMINATION: Liver ultrasound. INDICATION: Abdominal pain. FINDINGS: The visualized portions of the pancreas appear unremarkable. The liver is fairly homogeneous with no focal lesion seen. It is slightly dense which may relate to fatty infiltration. The gallbladder has been removed. The CBD is up to 0.8 CM in caliber. Hepatopetal flow in the portal vein seen. The right kidney is 11.4 CM in length with no hydronephrosis or focal lesion. Sonographic Servin sinus is reportedly negative. No ascites is seen. IMPRESSION: Suggestion of hepatic steatosis. Dictated by: Dictated on workstation # [id number]
[2017-01-02] MEDS ORDERED: ACET-2469 PO (10:59)
[2017-01-02] MEDS ORDERED: IBUP-30 PO (10:59)
[2017-01-02] MEDS ORDERED: CYAN10006 PO (10:59)
[2017-01-02] MEDS ORDERED: TRAM50TA2 PO (10:59)
[2017-01-02] MEDS ORDERED: BUPR-168 PO (10:59)
[2017-01-02] MEDS ORDERED: ALPR0.254 PO (10:59)
[2017-01-02] MEDS ORDERED: RT-ALBUINH INH (10:59)
[2017-01-02] MEDS ORDERED: GABA600T2 PO (10:59)
[2017-01-02 12:00] VITALS: BP 124/72
[2017-01-02 16:00] VITALS: BP 106/53
[2017-01-02] MEDS: LEVOFLOXACIN 500 MG/D5W 100 ML (PRE-MIX) IV SCH (18:38)
[2017-01-02 19:50] VITALS: BP 112/57
[2017-01-02] MEDS: VANCOMYCIN INJECTION 1,750 MG in NS IV 500 ML 500 ML IV SCH (19:58)
[2017-01-03 00:25] VITALS: BP 127/55
[2017-01-03 04:07] VITALS: BP 112/58
[2017-01-03] MEDS: NS IV 1000 ML 1,000 ML IV SCH (04:13)
[2017-01-03] MEDS: ALPRAZolam 0.5 MG (XANAX) TAB PO PRN ×3 (04:46→21:27)
[2017-01-03] MEDS ORDERED: TROUGH ORDER-PHARMACY XX NR (06:30)
[2017-01-03] MEDS: ENOXAPARIN 40 MG/0.4 ML (LOVENOX) SYR SC SCH (06:47)
[2017-01-03 06:55] LABS: BASOPHILS # (AUTO) 0.1 10^3/uL (0.0-0.1); BASOPHILS % (AUTO) 0 % (0-10); EOSINOPHILS # (AUTO) 0.2 10^3/uL (0.0-0.3); EOSINOPHILS % (AUTO) 1 % (0-10); LYMPHOCYTES # (AUTO) 2.9 X 10^3 (1.0-4.0); LYMPHOCYTES % (AUTO) 15 % (12-44); MEAN CORPUSCULAR HEMOGLOBIN 30 PG (25-34); MEAN CORPUSCULAR HGB CONC 33 G/DL (32-36); MEAN CORPUSCULAR VOLUME 93 FL (80-99); MEAN PLATELET VOLUME 11.2 FL (7.4-10.4); MONOCYTES # (AUTO) 0.8 X 10^3 (0.0-1.0); MONOCYTES % (AUTO) 4 % (0-12); NEUTROPHILS % (AUTO) 80 % (42-75); PLATELET COUNT 228 10^3/uL (130-400); RED BLOOD COUNT 3.97 10^6/uL (4.35-5.85); RED CELL DISTRIBUTION WIDTH 15.1 % (10.0-14.5); WHITE BLOOD COUNT 18.9 10^3/uL (4.3-11.0)
[2017-01-03 07:14] LABS: ALANINE AMINOTRANSFERASE 124 U/L (0-55); ALBUMIN 2.9 G/DL (3.2-4.5); ANION GAP 8 MMOL/L (5-14); ASPARTATE AMINO TRANSFERASE 66 U/L (5-34); BILIRUBIN,TOTAL 0.2 MG/DL (0.1-1.0); BLOOD UREA NITROGEN 13 MG/DL (7-18); BUN/CREATININE RATIO 20; CALCIUM 8.3 MG/DL (8.5-10.1); CARBON DIOXIDE 24 MMOL/L (21-32); CHLORIDE 106 MMOL/L (98-107); CREATININE SERUM 0.65 MG/DL (0.60-1.30); GFR ESTIMATED > 60; GLUCOSE 118 MG/DL (70-105); SODIUM 138 MMOL/L (135-145); TOTAL PROTEIN 5.8 G/DL (6.4-8.2)
--- NOTE | 2017-01-03 07:36 | Progress Note (SOAP) ---
Subjective Subjective/Events-last exam patient is feeling better today. Patient still having pain in the abdominal folds lower. UTI waiting for culture and sensitivity report. Elevated liver enzymes coming down. Leukocytosis White blood cell count 18,900 compared to over 25,000 improving. Skin culture corynbacterium Objective Exam Vital Signs Date Time Temp Pulse Resp B/P (MAP) Pulse Ox O2 Delivery O2 Flow Rate FiO2 01/03/17 04:07 97.0 78 18 112/58 96 Room Air 01/03/17 00:25 96.9 81 20 127/55 94 Room Air 01/02/17 19:50 97.4 75 20 112/57 97 Room Air 01/02/17 16:00 96.1 74 20 106/53 97 Room Air 01/02/17 12:00 96.3 81 20 124/72 95 Room Air 01/02/17 08:00 97.7 88 16 107/73 95 Room Air I & O 01/03/17 07:00 Intake Total 5077.5 ml Output Total 2900 ml Balance 2177.5 ml Capillary Refill : Less Than 3 Seconds General Appearance: No Apparent Distress, WD/WN HEENT: Normal ENT Inspection Neck: Full Range of Motion, Normal Inspection, Non Tender, Supple Respiratory: Chest Non Tender, Lungs Clear, Normal Breath Sounds, No Accessory Muscle Use, No Respiratory Distress Cardiovascular: Regular Rate, Rhythm, No Murmur Gastrointestinal: non tender, soft Results Lab Laboratory Tests 01/03/17 06:50 Laboratory Tests 01/02/17 08:05: Lactic Acid Level 0.94 01/03/17 06:50: White Blood Count 18.9H, Red Blood Count 3.97L, Hemoglobin 12.0, Hematocrit 37, Mean Corpuscular Volume 93, Mean Corpuscular Hemoglobin 30, Mean Corpuscular Hemoglobin Concent 33, Red Cell Distribution Width 15.1H, Platelet Count 228, Mean Platelet Volume 11.2H, Neutrophils (%) (Auto) 80H, Lymphocytes (%) (Auto) 15, Monocytes (%) (Auto) 4, Eosinophils (%) (Auto) 1, Basophils (%) (Auto) 0, Neutrophils # (Auto) 15.0H, Lymphocytes # (Auto) 2.9, Monocytes # (Auto) 0.8, Eosinophils # (Auto) 0.2, Basophils # (Auto) 0.1, Sodium Level 138, Potassium Level 4.0, Chloride Level 106, Carbon Dioxide Level 24, Anion Gap 8, Blood Urea Nitrogen 13, Creatinine 0.65, Estimat Glomerular Filtration Rate > 60, BUN/ Creatinine Ratio 20, Glucose Level 118H, Calcium Level 8.3L, Total Bilirubin 0.2 , Aspartate Amino Transf (AST/SGOT) 66H, Alanine Aminotransferase (ALT/SGPT) 124H, Alkaline Phosphatase 105, Total Protein 5.8L, Albumin 2.9L, Vancomycin Level Trough 12.3 Microbiology 01/01/17 Urine Culture - Final, Complete 01/02/17 Gram Stain - Final, Resulted 01/02/17 Wound Culture - Preliminary, Resulted Corynebacterium Species Assessment/Plan Assessment/Plan Assess & Plan/Chief Complaint UTI. Lower abdominal pain. Abdominal folds infection. And yeast. Liver enzymes coming down. Leukocytosis improving. Patient in the right direction. Ultrasound of abdomen suggestion of stearrhea Clinical Quality Measures DVT/VTE Risk/Contraindication: Risk Factor Score Per Nursin RFS Level Per Nursing on Admit: 4+=Very High HARVEY LINDSEY DO January 03, 2017 07:36
[2017-01-03] MEDS: MUPIROCIN 2% OINT 22 GM (BACTROBAN) TUBE TOP SCH (07:37)
[2017-01-03] MEDS: NYSTATIN CREAM (MYCOSTATIN) 30 GM TUBE TP SCH ×2 (07:37→07:38)
[2017-01-03] MEDS: PREGABALIN 50 MG (LYRICA) CAP PO SCH ×3 (07:56→21:28)
[2017-01-03] MEDS: VANCOMYCIN INJECTION 1,750 MG in NS IV 500 ML 500 ML IV SCH ×2 (07:56→20:59)
[2017-01-03 08:30] VITALS: BP 125/67
[2017-01-03] MEDS ORDERED: GABAPENTIN 300 MG (NEURONTIN) CAP PO SCH (09:00)
--- NOTE | 2017-01-03 13:11 | Behavioral Health Consult ---
Consult- Consult Date: 01-02-17 Referral: Dr. Gong CPT Code: 14799 Psychodiagnostic Examination; 70947 Interactive Complexity, 1 unit(s) Start Time: 11:00 am Stop Time: 1:00 pm Chief Complaint: grief, hallucinations, drug abuse Referral: Wilma Hassan is a 46-year-old, , female referred by Dr. Gong for a clinical diagnostic assessment. Information for this evaluation was gathered from self-report, clinical observation, hospital nurse, and medical records. Presenting Problem: According to medical records, Wilma was admitted on January 01 due to abdominal pain and a UTI. She was reportedly also having hallucinations. Her records indicated being hospitalized several times recently due to intentional drug overdose, narcotic withdrawal, and polysubstance abuse; all in October 2016. Her records also indicated suicidal ideation in December 2015. [facility] medical records indicated she tested positive for amphetamine, methamphetamine, benzodiazepine, diazepam, and cannabis and that her drugs of choice were THC and methamphetamine. Her nurse reported she has a history of substance abuse, several drugs were found in her system upon being admitted to the hospital, but she was denying any problems with drugs. Her nurse reported if she was willing to go to any substance abuse treatment that would likely be beneficial, but did not know how willing Wilma was for treatment. Her nurse reported she would likely be discharged in a couple of days. Wilma was seen alone in her hospital room. She reported she had been having hallucinations on Saturday and Saturday, December 31 and , but upon being admitted to the hospital is no longer having them. She reported she thinks the hallucinations were due to stress or lack of sleep and denied any history of hallucinating. She reported she has been diagnosed with early onset Alzheimers disease, struggles to remember things, and does not sleep. Wilma reported she has felt depressed for years and has been diagnosed with it in the past. She reported she has currently felt depressed most days, felt loss of pleasure, worthlessness, guilt, insomnia, and problems concentrating for years. She reported loose suicidal ideation, but stated she would never harm herself due to her kids. She reported she has been grieving for the loss of her who in July and has struggled since losing him. Observations/Mental Status: Wilma was seen in the hospital and was alone. Overall appearance was disheveled. Wilma appeared to be a poor historian. Observed gait and gross motor movements indicated no clinically significant difficulties. [facility] general approach to the evaluation lacked interest and motivation but cooperated. Orientation was intact for person, place, time, and situation. Wilma evidenced fair understanding of the reason for the appointment. [facility] in-session behavior was cooperative. The predominant mood was depressed with affect appropriate to expressed concerns and presenting problem. Immediate attention and concentration appeared variable. Memory functioning appeared to be intact. Level of intellectual functioning compared to same age peers was estimated to be in the average range. Thought processes were found to be generally logical, coherent and goal directed. Thought content appeared normal. Psychomotor functioning was within normal limits. Tone of voice was normal and controlled. Expressive speech was marked by fluent speech and language. Eye contact was fair. Insight was poor. Overall, style of interacting during the appointment was disinterested. Current/Previous Mental Health Treatment: Past psychiatric history was reported she had been in therapy and medication management in the past at [facility] and [facility]. She reported she had been diagnosed with major depressive disorder, anxiety, seasonal affective disorder, and dysthymia at various points in her history. She reported she is currently prescribed Xanax but was unsure who is prescribing it, and had been prescribed Cymbalta but stated the pharmacy suddenly quit delivering it to her. She was unsure how long ago she has not been taking it. History of self or other harm was denied. Current destructive behavior patterns: none indicated or reported. Family psychiatric history was not assessed. Recreational Drug Usage: Substance abuse history was reported a history of substance abuse and would not say when it first began, but stated that it significantly worsened after the of her at the beginning of July 2016. She reported she would intravenously use morphine and Oxycontin and acknowledged being addicted. She reported she quit on her own and denied any past substance abuse treatment. She reported she has occasionally used marijuana to help her get through the withdrawals but stated she did not like it. She stated she is now clean and sober and her last date of drug use was in October 2016. She then stated that she did use marijuana two days before being hospitalized, but "only had two puffs". According to her drug screen, her urine was positive for amphetamine, methamphetamine, benzodiazepines, diazepam, and cannabis. Educational and Vocational Histories: Current vocational status: receiving disability for her early onset Alzheimers and for mental health. Legal History: Legal history was not assessed. 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 She reported she has guilt from his and wondered if she could have done something to prevent his . She reported she has four children, none of whom live with her. She reported her older three are adults and live on their own and her youngest is 18 years old and lives with her father. Wilma reported she lives with her mother due to her memory problems due to Alzheimers and also does not drive. She reported she has struggled with her independence due to having to rely so much on her mother. Summary of Assessment Information/Prognosis: Wilma is a 46-year-old female. Following current assessment, presenting problem and symptoms appear consistent with a preliminary diagnosis of F33.1 Major Depressive Disorder, recurrent episode, moderate; F19.10 Poly Substance Abuse; R/O Polysubstance Dependence. Overall, prognosis is estimated to be guarded. Diagnostic Impressions: F33.1 Major Depressive Disorder, recurrent episode, moderate; F19.10 Poly Substance Abuse; R/O Polysubstance Dependence Initial Treatment Plan/Recommendations: The recommendations at this time include the following: individual outpatient psychotherapy, medication management, and outpatient substance abuse treatment. Wilma is recommended to return within one week for follow-up. It is recommended that the hospital social worker school assist her in scheduling a follow up appointment with consultation therapist and with her current medication provider before being discharged from the hospital. Wilma reported her mother can transport her to appointments. Further disposition will be made at that time. Wilma verbalized understanding of these recommendations and an intention to comply with the proposed treatment plan and course of treatment. DANIEL DUARTE January 03, 2017 13:11
[2017-01-03 16:00] VITALS: BP 128/82
[2017-01-03] MEDS: LEVOFLOXACIN 500 MG/D5W 100 ML (PRE-MIX) IV SCH (19:43)
[2017-01-03] MEDS: MICONAZOLE 2% POWDER (DESENEX AF) 90 GM TOP SCH (20:59)
[2017-01-04 00:30] VITALS: BP 139/87
[2017-01-04] MEDS: ALPRAZolam 0.5 MG (XANAX) TAB PO PRN (05:35)
[2017-01-04 06:15] LABS: BASOPHILS # (AUTO) 0.1 10^3/uL (0.0-0.1); BASOPHILS % (AUTO) 0 % (0-10); EOSINOPHILS # (AUTO) 0.3 10^3/uL (0.0-0.3); EOSINOPHILS % (AUTO) 2 % (0-10); LYMPHOCYTES # (AUTO) 3.3 X 10^3 (1.0-4.0); LYMPHOCYTES % (AUTO) 25 % (12-44); MEAN CORPUSCULAR HEMOGLOBIN 30 PG (25-34); MEAN CORPUSCULAR HGB CONC 32 G/DL (32-36); MEAN CORPUSCULAR VOLUME 93 FL (80-99); MEAN PLATELET VOLUME 11.3 FL (7.4-10.4); MONOCYTES # (AUTO) 0.5 X 10^3 (0.0-1.0); MONOCYTES % (AUTO) 4 % (0-12); NEUTROPHILS % (AUTO) 69 % (42-75); PLATELET COUNT 229 10^3/uL (130-400); RED BLOOD COUNT 4.13 10^6/uL (4.35-5.85); RED CELL DISTRIBUTION WIDTH 14.9 % (10.0-14.5); WHITE BLOOD COUNT 13.1 10^3/uL (4.3-11.0)
[2017-01-04] MEDS: ENOXAPARIN 40 MG/0.4 ML (LOVENOX) SYR SC SCH (06:43)
[2017-01-04 07:10] LABS: ALANINE AMINOTRANSFERASE 98 U/L (0-55); ALBUMIN 3.1 G/DL (3.2-4.5); ANION GAP 6 MMOL/L (5-14); ASPARTATE AMINO TRANSFERASE 43 U/L (5-34); BILIRUBIN,TOTAL 0.1 MG/DL (0.1-1.0); BLOOD UREA NITROGEN 11 MG/DL (7-18); BUN/CREATININE RATIO 17; CALCIUM 8.8 MG/DL (8.5-10.1); CARBON DIOXIDE 24 MMOL/L (21-32); CHLORIDE 109 MMOL/L (98-107); CREATININE SERUM 0.66 MG/DL (0.60-1.30); GFR ESTIMATED > 60; GLUCOSE 104 MG/DL (70-105); POTASSIUM 4.4 MMOL/L (3.6-5.0); SODIUM 139 MMOL/L (135-145)
--- NOTE | 2017-01-04 07:24 | Progress Note (SOAP) ---
Subjective Subjective/Events-last exam patient feeling better and doing better. Patient's white blood cell count coming down now 13,100 compared to 25,000. kidney function normal. Liver tests coming down. CMP not done yet. Patient not having any pain in the abdominal folds and improving. Patient daughter is graduating and patient wants to go home today Objective Exam Vital Signs Date Time Temp Pulse Resp B/P (MAP) Pulse Ox O2 Delivery O2 Flow Rate FiO2 01/04/17 03:03 98 01/04/17 00:30 96.5 67 20 139/87 97 01/03/17 20:05 95 01/03/17 16:00 97.2 69 20 128/82 97 01/03/17 08:30 98.1 72 24 125/67 97 Room Air I & O 01/04/17 07:00 Intake Total 2847.5 ml Output Total 3275 ml Balance -427.5 ml Capillary Refill : Less Than 3 Seconds General Appearance: No Apparent Distress, WD/WN HEENT: Normal ENT Inspection Neck: Full Range of Motion, Normal Inspection, Non Tender Respiratory: Chest Non Tender, Lungs Clear, Normal Breath Sounds, No Accessory Muscle Use, No Respiratory Distress Cardiovascular: Regular Rate, Rhythm, Normal Peripheral Pulses Gastrointestinal: normal bowel sounds, non tender, soft, other (abdominal folds better) Results Lab Laboratory Tests 01/04/17 05:41: White Blood Count 13.1H, Red Blood Count 4.13L, Hemoglobin 12.3, Hematocrit 38, Mean Corpuscular Volume 93, Mean Corpuscular Hemoglobin 30, Mean Corpuscular Hemoglobin Concent 32, Red Cell Distribution Width 14.9H, Platelet Count 229, Mean Platelet Volume 11.3H, Neutrophils (%) (Auto) 69, Lymphocytes (%) (Auto) 25 , Monocytes (%) (Auto) 4, Eosinophils (%) (Auto) 2, Basophils (%) (Auto) 0, Neutrophils # (Auto) 9.0H, Lymphocytes # (Auto) 3.3, Monocytes # (Auto) 0.5, Eosinophils # (Auto) 0.3, Basophils # (Auto) 0.1, Sodium Level 139, Potassium Level 4.4, Chloride Level 109H, Carbon Dioxide Level 24, Anion Gap 6, Blood Urea Nitrogen 11, Creatinine 0.66, Estimat Glomerular Filtration Rate > 60, BUN/ Creatinine Ratio 17, Glucose Level 104, Calcium Level 8.8, Total Bilirubin 0.1, Aspartate Amino Transf (AST/SGOT) 43H, Alanine Aminotransferase (ALT/SGPT) 98H, Alkaline Phosphatase 101, Total Protein 6.0L, Albumin 3.1L Microbiology 01/02/17 Blood Culture - Preliminary, Resulted No growth 01/01/17 Urine Culture - Final, Complete 01/02/17 Gram Stain - Final, Resulted 01/02/17 Wound Culture - Preliminary, Resulted Corynebacterium Species Assessment/Plan Assessment/Plan Assess & Plan/Chief Complaint UTI. Lower abdominal pain. Abdominal folds infection. And yeast. Liver enzymes coming down. Leukocytosis improving. Patient in the right direction. Ultrasound of abdomen suggestion of stearrhea. . 01/04/17. Abdominal pain resolved. UTI. Corynebacterium on abdominal fold. Yeast. Elevated liver enzymes coming down. Leukocytosis better. Stearrhea. Patient wanting to go home Clinical Quality Measures DVT/VTE Risk/Contraindication: Risk Factor Score Per Nursin RFS Level Per Nursing on Admit: 4+=Very High HARVEY LINDSEY DO January 04, 2017 07:24
[2017-01-04] MEDS: VANCOMYCIN INJECTION 1,750 MG in NS IV 500 ML 500 ML IV SCH (07:58)
[2017-01-04] MEDS: PREGABALIN 50 MG (LYRICA) CAP PO SCH (07:58)
[2017-01-04] MEDS: MICONAZOLE 2% POWDER (DESENEX AF) 90 GM TOP SCH (07:58)
[2017-01-04 08:00] VITALS: BP 135/89
[2017-01-04] MEDS ORDERED: MICO90PO TOP (11:14)
[2017-01-04] MEDS ORDERED: LEVO500T2 PO (11:14)
[2017-01-04 12:00] VITALS: BP 135/89
== END 2017-01-04 11:15 | disposition home or self-care (01) ==
LOC: EDUNIT# 15:26 → ER 15:29 → 4TH 18:15 → UNDOADMOB 18:15 → 4TH 20:00
PROVIDERS: ADMIT Family Medicine; ATTEND Family Medicine
DX: R11.10 Vomiting, unspecified (principal); R44.1 Visual hallucinations; N39.0 Urinary tract infection, site not specified; F15.10 Other stimulant abuse, uncomplicated; F12.10 Cannabis abuse, uncomplicated; F17.210 Nicotine dependence, cigarettes, uncomplicated; I10 Essential (primary) hypertension; G40.909 Epilepsy, unspecified, not intractable, without status epilepticus; N28.9 Disorder of kidney and ureter, unspecified; L08.9 Local infection of the skin and subcutaneous tissue, unspecified; B96.89 Other specified bacterial agents as the cause of diseases classified elsewhere; B37.2 Candidiasis of skin and nail
CPT/HCPCS: 36415; 71020; 73630; 76705; 80053; 80202; 80306; 80320; 80329; 81000; 82150; 83605; 83690; 85007; 85025; 85027; 85610; 87040; 87070; 87088; 87205; 93005; 94760; 96360; G0378

== ENCOUNTER 2017-01-06 18:13 | Inpatient (IN) | payer MEDICAID ==
[~2017-01-06] VITALS: Ht 152.4 cm; Wt 121.1 kg
[~2017-01-06 18:13] MED LIST changes: +ACET-2469 PO; +ALPR0.25 PO; +BUPR-168 PO; +CYAN10006 PO; +DULO30CA3 PO; +DULO60CA6 PO; +GABA800T PO; +IBUP-30 PO; +LEVO500T2 PO; +MICO90PO TOP; +RT-ALBUINH INH
[2017-01-06] MEDS ORDERED: RT-ALBUTEROL/IPRATROPIUM 3 ML (DUONEB) VIAL INH ONE (18:45)
[2017-01-06] MEDS ORDERED: methylPREDNISolone 125 MG (Solu-MEDROL) VIAL IVP ONE (18:45)
[2017-01-06] MEDS ORDERED: DEXAMETHASONE 4 MG/ML SDV (DECADRON) IH ONE (18:45)
[2017-01-06 18:55] LABS: BASOPHILS # (AUTO) 0.1 10^3/uL (0.0-0.1); BASOPHILS % (AUTO) 2 % (0-10); EOSINOPHILS % (AUTO) 1 % (0-10); LYMPHOCYTES # (AUTO) 1.2 X 10^3 (1.0-4.0); LYMPHOCYTES % (AUTO) 16 % (12-44); MEAN CORPUSCULAR HEMOGLOBIN 29 PG (25-34); MEAN CORPUSCULAR HGB CONC 32 G/DL (32-36); MEAN CORPUSCULAR VOLUME 91 FL (80-99); MONOCYTES # (AUTO) 0.4 X 10^3 (0.0-1.0); MONOCYTES % (AUTO) 6 % (0-12); NEUTROPHILS # (AUTO) 5.6 X 10^3 (1.8-7.8); NEUTROPHILS % (AUTO) 76 % (42-75); PLATELET COUNT 220 10^3/uL (130-400); RED BLOOD COUNT 4.39 10^6/uL (4.35-5.85); RED CELL DISTRIBUTION WIDTH 14.8 % (10.0-14.5); WHITE BLOOD COUNT 7.3 10^3/uL (4.3-11.0)
[2017-01-06 19:10] LABS: INR 1.1 (0.8-1.4); PROTHROMBIN TIME PATIENT 14.1 SEC (12.2-14.7)
[2017-01-06 19:18] LABS: ALANINE AMINOTRANSFERASE 52 U/L (0-55); ALBUMIN 3.3 G/DL (3.2-4.5); ANION GAP 11 MMOL/L (5-14); ASPARTATE AMINO TRANSFERASE 27 U/L (5-34); BILIRUBIN,TOTAL 0.2 MG/DL (0.1-1.0); BLOOD UREA NITROGEN 9 MG/DL (7-18); BUN/CREATININE RATIO 13; CALCIUM 8.9 MG/DL (8.5-10.1); CARBON DIOXIDE 27 MMOL/L (21-32); CHLORIDE 103 MMOL/L (98-107); CREATINE KINASE 95 U/L (29-168); CREATININE SERUM 0.72 MG/DL (0.60-1.30); GFR ESTIMATED > 60; GLUCOSE 116 MG/DL (70-105); POTASSIUM 3.7 MMOL/L (3.6-5.0); SODIUM 141 MMOL/L (135-145); TOTAL PROTEIN 6.7 G/DL (6.4-8.2)
[2017-01-06 19:25] LABS: TROPONIN I < 0.30 NG/ML (<0.30)
--- NOTE | 2017-01-06 19:40 | Diagnostic Imaging Report ---
Clinical indication: Patient with shortness of air, cough, chest tightness. Exam: Portable chest x-ray upright view. Comparisons: Chest x-ray dated 01/01/2017. Findings: Lungs/pleura: Lungs are clear. There is no pneumothorax. There is no pleural effusion. Mediastinum: Unremarkable. Pulmonary vasculature: Unremarkable. Heart: Unremarkable. Bones/extrathoracic soft tissue: Again seen is mild right curvature of the thoracic spine. Impression: Stable chest x-ray exam with no interval radiographic evidence of acute cardiopulmonary process. Dictated by: Dictated on workstation # [id number]
[2017-01-06 19:41] LABS: ABG BASE EXCESS 4.1 MMOL/L (-2.5-2.5); ABG HCO3 27 MMOL/L (23-27); ABG OXYGEN SATURATION 99 % (94-100); ABG PCO2 38 MMHG (35-45); ABG PH 7.47 (7.37-7.43); ABG PO2 111 MMHG (79-93); ABG TCO2 28.5 MMOL/L (21.0-31.0)
--- NOTE | 2017-01-06 19:42 | ED Respiratory ---
General Chief Complaint: Respiratory Problems Stated Complaint: COUGH/SOB Nursing Triage Note: to ER with complaints of cough and shortness of breath since recent hospitalization. Patient reports that shw has history of PE and is not longer taking her Xarelto. Source: patient (PT GIVES MUCH CONFLICTING INFORMATION, VERY POOR MEMORY AND NO SENSE OF TIME), old records History of Present Illness Time seen by provider: 18:32 Initial Comments PT ARRIVES VIA POV FROM HOME C/O NON-PRODUCTIVE COUGH, CHEST CONGESTION, SHORTNESS OF BREATH--ESPECIALLY WITH EXERTION, PAIN IN CHEST WITH COUGHING AND FEVER OF 103 ---GIVES CONFLICTING STORIES TO WHEN SYMPTOMS BEGAN, BUT APPARENTLY BEGAN ON Saturday01/04/17 PT WAS ADMITTED 01/02/17- 01/04/17 FOR UTI--PT STATES CURRENT SYMPTOMS BEGAN AFTER SHE GOT HOME FROM THE HOSPITAL STATES SHE CALLED DR. LINDSEY'S OFFICE ON SATURDAY AND RX'S WERE CALLED IN FOR A COUGH SYRUP AND VENTOLIN INHALER-STATES SHE HAS AN APPOINTMENT WITH HIM TOMORROW AT 11:00 FOR THIS PROBLEM AND FOLLOW UP FROM HOSPITAL VISIT PT STATES SHE HAS USED THE INHALER "ALOT" --PT STATES SHE HAS USED IT MORE THAN 10 TIMES TODAY PT IS CURRENTLY ON LEVAQUIN PT STATES SHE "WAKES HERSELF UP" BECAUSE OF THE SHORTNESS OF BREATH PT STATES SHE HAS A HISTORY OF P.E. "8 OR 9 MONTHS AGO" AND WAS ON XARELTO, BUT HAS NOT TAKEN ANY FOR OVER 6 MONTHS--STATES "AMY TOLD ME I DIDN'T HAVE TO TAKE IT ANYMORE"--HOWEVER, ON REVIEW OF OLD RECORD, PT WAS DX WITH P.E. IN 2014---- AND NOT IN THE LAST YEAR PT WITH A MULTITUDE OF VISITS--MANY ARE DRUG AND ALCOHOL-RELATED ISSUES SEE OLD CHARTS FOR DETAILS PCP: DR. LINDSEY Allergies and Home Medications Allergies Coded Allergies: No Known Drug Allergies (Unverified , 01/01/17) Home Medications Albuterol Sulfate 1 Puff Puff, 2 PUFF INH Q4H PRN for SHORTNESS OF BREATH, ( Reported) Alprazolam 0.25 Mg Tablet, 0.25 MG PO BID PRN for ANXIETY, (Reported) Bupropion HCl 75 Mg Tablet, 75 MG PO BID, (Reported) Cyanocobalamin (Vitamin B-12) 1,000 Mcg Tablet, 1,000 MCG PO DAILY, (Reported) Diphenhydramine HCl 25 Mg Tablet, 75-87.5 MG PO HS PRN for SLEEP, (Reported) TAKES 3-3 & 1/2 (25 MG) TABLETS Duloxetine HCl 30 Mg Capsule.dr, 30 MG PO DAILY, (Reported) LAST FILLED #7 12-10-16 TAKES ALONG WITH 60MG CAPSULE Duloxetine HCl 60 Mg Capsule.dr, 60 MG PO DAILY, (Reported) LAST FILLED #7 12-10-16 TAKES ALONG WITH 30MG CAPSULE Gabapentin 600 Mg Tablet, 600 MG PO TID, (Reported) Levofloxacin 500 Mg Tablet, 500 MG PO DAILY for 5 Days Prescribed by: ERIC ORTEGA on 01/04/17 1114 Miconazole Nitrate 90 Gm Powder, 0 GM TOP BID for 14 Days, #1 Ref 1 Prescribed by: ERIC ORTEGA on 01/04/17 1114 Tramadol HCl 50 Mg Tablet, 50 MG PO BID PRN for PAIN-MODERATE, (Reported) Constitutional: see HPI, fever, malaise, weakness EENTM: nose congestion, see HPI Respiratory: see HPI, cough, dyspnea on exertion, orthopnea, short of breath, wheezing Cardiovascular: see HPI, chest pain, edema, No palpitations, No syncope Gastrointestinal: no symptoms reported Genitourinary: incontinence (WEARING A DIAPER AT THIS TIME. ) Musculoskeletal: no symptoms reported Skin: no symptoms reported Psychiatric/Neurological: No Symptoms Reported Hematologic/Lymphatic: No Symptoms Reported Immunological/Allergic: no symptoms reported Past Lyqcaqd-[id number]-[id number] Hx Patient Social History Alcohol Use: Occasionally Uses (VERY HEAVY AT TIMES) Recreational Drug Use: Yes (METH, THC, RX DRUGS WITH MULTIPLE OVERDOSES OF DRUGS AND ALCOHOL) Drug of Choice: meth, thc Smoking Status: Former Smoker Type Used: Cigarettes 2nd Hand Smoke Exposure: Yes Recent Foreign Travel: No Contact w/Someone Who Travel: No Recent Infectious Disease Expo: No Recent Hopitalizations: No Immunizations Up To Date Tetanus Booster (TDap): Unknown Date of Pneumonia Vaccine: Apr 26, 2015 Date of Influenza Vaccine: Sep 09, 2012 Seasonal Allergies Seasonal Allergies: No Surgeries HX Surgeries: Yes (TRANSPOSTION/MEDIAN NERVE & CARPAL TUNNEL X 3, URETERAL STENT, LITHOTRIPSY) Surgeries: Gallbladder, Hysterectomy, Orthopedic, Renal, Tubal Ligation Respiratory Hx Respiratory Disorders: Yes Respiratory Disorders: Pneumonia, Chronic Bronchitis, Pulmonary Embolism Cardiovascular Hx Cardiac Disorders: Yes Cardiac Disorders: Hypertension Neurological Hx Neurological Disorders: Yes (PSUEDOSEIZURES) Neurological Disorders: Headaches /Migraines, Seizure Disorder 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 System Hx 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 Disorders: No Sexually Transmitted Disease: No HIV/AIDS: No 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 Genitourinary Hx Genitourinary Disorders: Yes Genitourinary Disorders: Kidney Stones Gastrointestinal Hx Gastrointestinal Disorders: No Musculoskeletal Hx Musculoskeletal Disorders: Yes (MOST ARE SELF-REPORTED, WITH [place] MEDICAL DOCUMENTATION OF THESE CONDITIONS) Musculoskeletal Disorders: Degenerate Disk Disease, Arthritis, Fibromyalgia, Back Injury, Scoliosis, Chronic Back Pain Endocrine Hx Endocrine Disorders: Yes (MORBID OBESITY) HEENT HX ENT Disorders: Yes (TMJ PROBLEMS PER PT, EXTENSIVE DENTAL CARIES/MISSING TEETH) Cancer Hx Cancer: No Psychosocial Hx Psychiatric Problems: Yes (MULTIPLE OVERDOSES-INTENTIONAL SUICIDE ATTEMPT , AND SOME NON-SUICIDAL) Behavioral Health Disorders: Pseudo Seizures, Sleep Difficulties, Anxiety, Suicide Attempts, Depression Integumentary HX Skin/Integumentary Disorder: No Blood Transfusions Hx Blood Disorders: No Family Medical History Family Medial History: Alcoholism 19 FATHER (grandfather) Alzheimer's disease 19 MOTHER (grandmother) Arthritis 19 FATHER Cardiovascular disease 19 FATHER 19 MOTHER Cataracts 19 MOTHER Coronary thrombosis 19 FATHER Dementia 19 MOTHER (grandparents) Diabetes mellitus 19 MOTHER Drug abuse 19 FATHER Glaucoma 19 FATHER (grandfather) Headache disorder 19 FATHER Hypercholesterolemia 19 FATHER Hypertension 19 FATHER Myocardial infarction 19 FATHER Parkinson's disease 19 MOTHER Prostate cancer 19 MOTHER (uncle brother of mother) Psychosocial problem 19 FATHER Respiratory disorder 19 FATHER (grandfather) Seizure disorder 19 MOTHER No Family History of: AIDS Abdominal aortic aneurysm [place]'s disease Aphasia Asthma Cancer of mouth Colon cancer Completed stroke Congenital disease Congenital heart disease Cystic fibrosis Deafness or hearing loss Dysphasia Fibrocystic disease of breast Gastroenteritis Infertility Kidney disease Neoplasm Severe allergy Thyroid disease Tuberculosis Visual disorder Physical Exam Vital Signs Vital Sign - Last 12Hours 01/06/17 18:46 Temp 99.4 Pulse 84 Resp 24 B/P (MAP) 176/99 Pulse Ox 94 O2 Delivery Room Air Capillary Refill : Less Than 3 Seconds General Appearance: mild distress (MILD DYSPNEA--TALKS IN FULL SENTENCES AT LENGHT), obese, other (VOICE SLIGHTLY HOARSE) HEENT: PERRL/EOMI, other (POOR DENTITION, MANY MISSING TEETH) Neck: non-tender, full range of motion, supple, normal inspection Respiratory: respiratory distress (MILDLY DYSPNEIC BUT ABLE TO TALK IN FULL SENTENCES), wheezing (DIFFUSE EXPIRATORY WHEEZING BILATERALLY. 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, no motor/sensory deficits, alert, normal mood/affect, other (POOR MEMORY) Focused Exam Lactic Acid Level Laboratory Tests Test 01/06/17 18:46 Lactic Acid Level 1.27 MMOL/L (0.50-2.00) Laceration Repair : Suture Size: 4-0 Progress/Results/Core Measures Results/Orders Lab Results Laboratory Tests Test 01/06/17 18:46 01/06/17 19:18 01/06/17 19:30 01/06/17 20:13 Range/Units White Blood Count 7.3 4.3-11.0 10^3/uL Red Blood Count 4.39 4.35-5.85 10^6/uL Hemoglobin 12.9 11.5-16.0 G/DL Hematocrit 40 35-52 % Mean Corpuscular Volume 91 80-99 FL Mean Corpuscular Hemoglobin 29 25-34 PG Mean Corpuscular Hemoglobin Concent 32 32-36 G/DL Red Cell Distribution Width 14.8 H 10.0-14.5 % Platelet Count 220 130-400 10^3/uL Mean Platelet Volume 11.0 H 7.4-10.4 FL Neutrophils (%) (Auto) 76 H 42-75 % Lymphocytes (%) (Auto) 16 12-44 % Monocytes (%) (Auto) 6 0-12 % Eosinophils (%) (Auto) 1 0-10 % Basophils (%) (Auto) 2 0-10 % Neutrophils # (Auto) 5.6 1.8-7.8 X 10^3 Lymphocytes # (Auto) 1.2 1.0-4.0 X 10^3 Monocytes # (Auto) 0.4 0.0-1.0 X 10^3 Eosinophils # (Auto) 0.0 0.0-0.3 10^3/uL Basophils # (Auto) 0.1 0.0-0.1 10^3/uL Prothrombin Time 14.1 12.2-14.7 SEC INR Comment 1.1 0.8-1.4 Activated Partial Thromboplast Time 39 H 24-35 SEC Sodium Level 141 135-145 MMOL/L Potassium Level 3.7 3.6-5.0 MMOL/L Chloride Level 103 98-107 MMOL/L Carbon Dioxide Level 27 21-32 MMOL/L Anion Gap 11 5-14 MMOL/L Blood Urea Nitrogen 9 7-18 MG/DL Creatinine 0.72 0.60-1.30 MG/DL Estimat Glomerular Filtration Rate > 60 BUN/Creatinine Ratio 13 Glucose Level 116 H 70-105 MG/DL Lactic Acid Level 1.27 0.50-2.00 MMOL/L Calcium Level 8.9 8.5-10.1 MG/DL Total Bilirubin 0.2 0.1-1.0 MG/DL Aspartate Amino Transf (AST/SGOT) 27 5-34 U/L Alanine Aminotransferase (ALT/SGPT) 52 0-55 U/L Alkaline Phosphatase 91 40-136 U/L Total Creatine Kinase 95 29-168 U/L Creatine Kinase MB 1.2 <6.6 NG/ML Troponin I < 0.30 <0.30 NG/ML B-Type Natriuretic Peptide 22.1 <100.0 PG/ML Total Protein 6.7 6.4-8.2 G/DL Albumin 3.3 3.2-4.5 G/DL Magnesium Level 1.6 L 1.8-2.4 MG/DL Blood Gas Puncture Site LT RADIAL Blood Gas Patient Temperature 100.8 Arterial Blood pH 7.47 H 7.37-7.43 Arterial Blood Partial Pressure CO2 38 35-45 MMHG Arterial Blood Partial Pressure O2 111 H 79-93 MMHG Arterial Blood HCO3 27 23-27 MMOL/L Arterial Blood Total CO2 28.5 21.0-31.0 MMOL/L Arterial Blood Oxygen Saturation 99 94-100 % Arterial Blood Base Excess 4.1 H -2.5-2.5 MMOL/L Don Test YES-POS Blood Gas Ventilator Setting NO Blood Gas Inspired Oxygen ROOM AIR Urine Opiates Screen POSITIVE H NEGATIVE Urine Oxycodone Screen NEGATIVE NEGATIVE Urine Methadone Screen NEGATIVE NEGATIVE Urine Propoxyphene Screen NEGATIVE NEGATIVE Urine Barbiturates Screen NEGATIVE NEGATIVE Ur Tricyclic Antidepressants Screen NEGATIVE NEGATIVE Urine Phencyclidine Screen NEGATIVE NEGATIVE Urine Amphetamines Screen NEGATIVE NEGATIVE Urine Methamphetamines Screen NEGATIVE NEGATIVE Urine Benzodiazepines Screen POSITIVE H NEGATIVE Urine Cocaine Screen NEGATIVE NEGATIVE Urine Cannabinoids Screen NEGATIVE NEGATIVE My Orders Orders - ABELINOTEODORA Collado DO Saline Lock/Iv-Start (01/06/17 18:41) Ekg Tracing (01/06/17 18:41) O2 (01/06/17 18:41) Monitor-Rhythm Ecg Trace Only (01/06/17 18:41) BNP (01/06/17 18:41) Cbc With Automated Diff (01/06/17 18:41) Comprehensive Metabolic Panel (01/06/17 18:41) Creatine Kinase (01/06/17 18:41) Creatine Kinase Mb (01/06/17 18:41) Drug Screen Stat (Urine) (01/06/17 18:41) Lactic Acid Analyzer (01/06/17 18:41) Protime With Inr (01/06/17 18:41) Partial Thromboplastin Time (01/06/17 18:41) Troponin I (01/06/17 18:41) Blood Culture (01/06/17 18:41) Chest 1 View, Ap/Pa Only (01/06/17 18:41) Albuterol/Ipra Inhalation Soln (Duoneb I (01/06/17 18:45) Dexamethasone Injection (Decadron Inject (01/06/17 18:45) Rt Request For Service (01/06/17 18:41) Svn Sm Volume Nebulizer Rt-Rfs (01/06/17 18:41) Methylprednisolone Sod Succ (Solu-Medrol (01/06/17 18:45) Arterial Blood Gas (01/06/17 19:29) Magnesium (01/06/17 19:29) Acetaminophen Tablet (Tylenol Tablet) (01/06/17 19:45) Ct Angio Chest W (01/06/17 19:32) Iohexol Injection (Omnipaque 350 Mg/Ml 1 (01/06/17 19:45) Ns (Ivpb) (Sodium Chloride 0.9% Ivpb Bag (01/06/17 19:45) Medications Given in ED Current Medications Medications Dose Ordered Sig/Garry Route Start Time Stop Time Status Last Admin Dose Admin Acetaminophen 1,000 mg ONCE ONCE PO 01/06/17 19:45 01/06/17 20:33 DC 01/06/17 19:37 1,000 MG Albuterol/ Ipratropium 3 ml ONCE ONCE INH 01/06/17 18:45 01/06/17 18:46 DC 01/06/17 18:55 3 ML Dexamethasone Sodium Phosphate 20 mg ONCE ONCE IH 01/06/17 18:45 01/06/17 18:46 DC 01/06/17 18:55 20 MG Iohexol 150 ml ONCE ONCE IV 01/06/17 19:45 01/06/17 20:33 DC 01/06/17 19:55 140 ML Methylprednisolone Sodium Succinate 125 mg ONCE ONCE IVP 01/06/17 18:45 01/06/17 18:46 DC 01/06/17 18:56 125 MG Sodium Chloride 100 ml ONCE ONCE IV 01/06/17 19:45 01/06/17 20:33 DC 01/06/17 19:55 100 ML Vital Signs/I&O Vital Sign - Last 12Hours 01/06/17 01/06/17 01/06/17 01/06/17 18:46 18:46 18:56 19:37 Temp 99.4 100.8 Pulse 84 Resp 24 B/P (MAP) 176/99 Pulse Ox 94 94 92 O2 Delivery Room Air Room Air 01/06/17 20:10 Temp 98.9 Blood Pressure Mean: 124 Progress Note : Progress Note O2 SATS DROPPED INTO MID 80'S--UP TO MID 90'S ON O2 AT 2L/NC NO DETERIORATION IN PT'S CONDITION DURING ER STAY MILD DECREASE IN WHEEZING AND INCREASE IN AERATION AFTER NEB TREATMENTS AND PT STATES SHE FEELS BETTER ECG Initial ECG Impression Time: 18:57 Initial ECG Rate: 90 Initial ECG Rhythm: Normal Sinus Initial ECG Comparisson: Unchanged Diagnostic Imaging Comments CXR--NO ACUTE PROCESS, PER RADIOLOGIST REPORT @ 194 CT CHEST ANGIOGRAM--POOR STUDY FOR P.E. BUT IS NOTED TO HAVE PNEUMONIA --PER RADIOLOGIST REPORT Reviewed: Reviewed by Me Departure Communication Progress Notes 2029--SPOKE WITH DR. CAMARA, ACCEPTS PT FOR ADMIT. Impression Impression: Primary Impression: Pneumonia Additional Impression: Hypoxia Disposition: ADMITTED INPATIENT Condition: Improved Decision to Admit Reason: Admit from ER (General) Decision to Admit/Date: January 06, 2017 Time/Decision to Admit Time: 20:30 Departure-Patient Inst. Referrals: HARVEY LINDSEY DO (PCP/Family) Primary Care Physician TEODORA ROCA DO January 06, 2017 19:42
[2017-01-06 19:45] LABS: ALLENS TEST YES-POS; PATIENT TEMP 100.8
[2017-01-06] MEDS ORDERED: ACETAMINOPHEN 500 MG TAB (TYLENOL) PO ONE (19:45)
[2017-01-06] MEDS ORDERED: IOHEXOL 350 MG/ML 150 ML (OMNIPAQUE 350) VIAL IV ONE (19:45)
[2017-01-06] MEDS ORDERED: NS 100 ML (IVPB) BAG IV ONE (19:45)
--- NOTE | 2017-01-06 21:14 | Diagnostic Imaging Report ---
CLINICAL INDICATION: Patient with shortness of air and the anterior chest pain with coughing. Patient has history of COPD. Exam: CT angiogram of the chest performed with cc Omnipaque 350 IV contrast. Coronal and oblique MIP images of the vasculature were created to better evaluate anatomy. Comparison: .CT angiogram of the chest dated 01/28/2015. Findings: There is no evidence of thoracic aortic aneurysm or dissection. Extremely limited evaluation of the pulmonary artery due to decreased contrast opacification of the proximal bilateral segmental pulmonary arteries. There is no gross pulmonary emboli in the right and left main pulmonary arteries and most of the proximal bilateral segmental pulmonary arteries. The more distal portions cannot be appropriately evaluated. The previously seen subsegmental pulmonary emboli within right lower lobe cannot be appropriately evaluated for its resolution due to decreased opacification. There is interval development of scattered areas of centrilobular nodules and groundglass nodules seen in the bilateral perihilar regions and throughout both lungs. These findings are concerning for infectious or inflammatory process. The bronchi are unremarkable. There is no pleural effusion or pneumothorax. There is interval small area of consolidation involving the lingular lung base. There is stable subcentimeter short axis lymph nodes in the mediastinum and bilateral hilar regions. There is interval mild pericardial effusion. There is no pleural effusion or pneumothorax. Gallbladder surgically resected. The remainder of the upper abdomen is stable with no significant interval abnormality. There is no axillary lymphadenopathy. There is no extrathoracic soft tissue abnormality. Bones show no significant interval abnormality. Impression: 1.: Very limited evaluation of pulmonary artery due to decreased contrast opacification, as described above. There is no gross pulmonary emboli involving the right and left main pulmonary arteries and most of the proximal bilateral segmental pulmonary artery. 2: The previously seen pulmonary emboli within the subsegmental portion of the right lower lobe cannot be evaluated for resolution on this exam. 3: There is interval development of bilateral centrilobular nodules and groundglass opacifications throughout both lungs concerning for infectious or inflammatory process. 4.: Stable mediastinal lymphadenopathy. Dictated by: Dictated on workstation # [id number]
[2017-01-06] MEDS ORDERED: CEFEPIME INJECTION 2,000 MG in NS (IVPB) 50 ML IV ONE (21:15)
[2017-01-06] MEDS ORDERED: ENOXAPARIN 60 MG/0.6 ML (LOVENOX) SYR SC ONE (21:30)
[2017-01-06] MEDS ORDERED: BENZONATATE 100 MG (TESSALON) CAPSULE PO SCH (21:45)
[2017-01-06] MEDS ORDERED: PROMETHAZINE/DM SYRUP (PHENERGDAN DM) 5 ML UDC PO ONE (21:45)
[2017-01-06 22:18] VITALS: BP 129/76
[2017-01-06] MEDS ORDERED: 1/2 NS IV SOLUTION 1,000 ML IV SCH (22:45)
[2017-01-06] MEDS ORDERED: ACETAMINOPHEN 500 MG TAB (TYLENOL) PO PRN (22:45)
[2017-01-06] MEDS ORDERED: CATHETER FLUSH 10 ML SYR IV PRN (22:45)
[2017-01-06] MEDS ORDERED: ENOXAPARIN 100 MG/1 ML (LOVENOX) SYR ONE (23:41)
[2017-01-06] MEDS ORDERED: ENOXAPARIN 40 MG/0.4 ML (LOVENOX) SYR ONE (23:41)
[2017-01-07] VITALS (7 sets, daily range): BP systolic 146–172; BP diastolic 76–95
[2017-01-07] MEDS: methylPREDNISolone 125 MG (Solu-MEDROL) VIAL IV SCH ×3 (00:23→11:41)
[2017-01-07] MEDS: ALPRAZolam 0.25 MG (XANAX) TAB PO PRN ×2 (00:25→08:14)
[2017-01-07] MEDS: IBUPROFEN 800 MG (MOTRIN) TAB PO PRN ×2 (00:54→16:11)
[2017-01-07] MEDS ORDERED: VANCOMYCIN 1 GM/NS 250 ML IVPB IV SCH ×2 (01:00)
[2017-01-07] MEDS: LEVOFLOXACIN 750 MG/D5W 150 ML PRE-MIX IV SCH (01:04)
[2017-01-07 04:12] LABS: BASOPHILS # (AUTO) 0.1 10^3/uL (0.0-0.1); BASOPHILS % (AUTO) 1 % (0-10); EOSINOPHILS % (AUTO) 0 % (0-10); LYMPHOCYTES % (AUTO) 13 % (12-44); MEAN CORPUSCULAR HEMOGLOBIN 29 PG (25-34); MEAN CORPUSCULAR HGB CONC 32 G/DL (32-36); MEAN CORPUSCULAR VOLUME 91 FL (80-99); MEAN PLATELET VOLUME 10.9 FL (7.4-10.4); MONOCYTES # (AUTO) 0.1 X 10^3 (0.0-1.0); MONOCYTES % (AUTO) 2 % (0-12); NEUTROPHILS # (AUTO) 6.8 X 10^3 (1.8-7.8); NEUTROPHILS % (AUTO) 85 % (42-75); PLATELET COUNT 256 10^3/uL (130-400); RED BLOOD COUNT 4.51 10^6/uL (4.35-5.85); RED CELL DISTRIBUTION WIDTH 14.9 % (10.0-14.5)
[2017-01-07 04:36] LABS: ALANINE AMINOTRANSFERASE 49 U/L (0-55); ALBUMIN 3.4 G/DL (3.2-4.5); ANION GAP 12 MMOL/L (5-14); ASPARTATE AMINO TRANSFERASE 29 U/L (5-34); BILIRUBIN,TOTAL 0.2 MG/DL (0.1-1.0); BLOOD UREA NITROGEN 9 MG/DL (7-18); BUN/CREATININE RATIO 11; CALCIUM 9.4 MG/DL (8.5-10.1); CARBON DIOXIDE 25 MMOL/L (21-32); CHLORIDE 103 MMOL/L (98-107); CREATININE SERUM 0.79 MG/DL (0.60-1.30); GFR ESTIMATED > 60; GLUCOSE 258 MG/DL (70-105); POTASSIUM 4.4 MMOL/L (3.6-5.0); SODIUM 140 MMOL/L (135-145)
[2017-01-07] MEDS: inSUlin (REGULAR) HUMAN 1 UNIT/0.01 ML (CHARGE PER UNIT) SC SCH ×4 (05:14→22:17)
[2017-01-07] MEDS ORDERED: CATHETER FLUSH 10 ML SYR IV SCH (06:00)
--- NOTE | 2017-01-07 07:29 | History & Physicial ---
History of Present Illness History of Present Illness Reason for visit/HPI patient came to the emergency room last night due to having cough and short of breath and running an elevated temperature of 103. Patient has history of PE in 2015. Patient that time was put on xerrato. Patient recently in the hospital for UTI and elevated liver enzymes Patient states she gets pneumonia and bronchitis easily. Patient stopped smoking 2 weeks ago after smoking for 9 years. Patient states she gets pneumonia and bronchitis easily. Chest x-ray yesterday negative a CAT scan shows pneumonia. Patient admitted Date of Admission January 06, 2017 at 20:30 I consulted on this patient on 01/07/17 07:24 Attending Physician Eliot Gong DO Admitting Physician Eliot Gong DO Consult Allergies and Home Medications Allergies Coded Allergies: No Known Drug Allergies (Unverified , 01/01/17) Home Medications Albuterol Sulfate 1 Puff Puff, 2 PUFF INH Q4H PRN for SHORTNESS OF BREATH, ( Reported) Alprazolam 0.25 Mg Tablet, 0.25 MG PO BID PRN for ANXIETY, (Reported) Bupropion HCl 75 Mg Tablet, 75 MG PO BID, (Reported) Cyanocobalamin (Vitamin B-12) 1,000 Mcg Tablet, 1,000 MCG PO DAILY, (Reported) Diphenhydramine HCl 25 Mg Tablet, 75-87.5 MG PO HS PRN for SLEEP, (Reported) TAKES 3-3 & 1/2 (25 MG) TABLETS Duloxetine HCl 30 Mg Capsule.dr, 30 MG PO DAILY, (Reported) LAST FILLED #7 12-10-16 TAKES ALONG WITH 60MG CAPSULE Duloxetine HCl 60 Mg Capsule.dr, 60 MG PO DAILY, (Reported) LAST FILLED #7 17 TAKES ALONG WITH 30MG CAPSULE Gabapentin 600 Mg Tablet, 600 MG PO TID, (Reported) Levofloxacin 500 Mg Tablet, 500 MG PO DAILY for 5 Days Prescribed by: ERIC ORTEGA on 01/04/17 1114 Miconazole Nitrate 90 Gm Powder, 0 GM TOP BID for 14 Days, #1 Ref 1 Prescribed by: ERIC ORTEGA on 01/04/17 1114 Tramadol HCl 50 Mg Tablet, 50 MG PO BID PRN for PAIN-MODERATE, (Reported) Past [id number] Hx Patient Social History Marrital Status: Employed/Student: unemployed Alcohol Use: Occasionally Uses (VERY HEAVY AT TIMES) Recreational Drug Use: Yes (METH, THC, RX DRUGS WITH MULTIPLE OVERDOSES OF DRUGS AND ALCOHOL) Drug of Choice: PAST meth, thc Smoking Status: Former Smoker Type Used: Cigarettes 2nd Hand Smoke Exposure: Yes Physical Abuse Screen: No Sexual Abuse: No Recent Foreign Travel: No Contact w/other who traveled: No Recent Hopitalizations: Yes Recent Infectious Disease Expo: No Immunizations Up To Date Tetanus Booster (TDap): Unknown Date of Pneumonia Vaccine: Apr 26, 2015 Date of Influenza Vaccine: Sep 09, 2012 Seasonal Allergies Seasonal Allergies: No Surgeries HX Surgeries: Yes (TRANSPOSTION/MEDIAN NERVE & CARPAL TUNNEL X 3, URETERAL STENT, LITHOTRIPSY) Surgeries: Gallbladder, Hysterectomy, Orthopedic, Renal, Tubal Ligation Respiratory Hx Respiratory Disorders: Yes Respiratory Disorders: Asthma, COPD, Pulmonary Embolism Cardiovascular Hx Cardiovascular Disorders: Yes Cardiac Disorders: Hypertension Neurological Hx Neurological Disorders: Yes (PSUEDOSEIZURES) Neurological Disorders: Headaches /Migraines, Seizure Disorder 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 System Hx 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 Disorders: No Sexually Transmitted Disease: No HIV/AIDS: No 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 Genitourinary Hx Genitourinary Disorders: Yes Genitourinary Disorders: Kidney Infection, Kidney Stones Gastrointestinal Hx Gastrointestinal Disorders: No Musculoskeletal Hx Musculoskeletal Disorders: Yes (MOST ARE SELF-REPORTED, WITH [place] MEDICAL DOCUMENTATION OF THESE CONDITIONS) Musculoskeletal Disorders: Degenerate Disk Disease, Arthritis, Fibromyalgia, Back Injury, Scoliosis, Chronic Back Pain Endocrine Hx Endocrine Disorders: Yes (MORBID OBESITY) HEENT HX ENT Disorders: Yes (TMJ PROBLEMS PER PT, EXTENSIVE DENTAL CARIES/MISSING TEETH) Cancer Hx Cancer: No Psychosocial Hx Psychiatric Problems: Yes (MULTIPLE OVERDOSES-INTENTIONAL SUICIDE ATTEMPT , AND SOME NON-SUICIDAL) Behavioral Health Disorders: Pseudo Seizures, Sleep Difficulties, Anxiety, Suicide Attempts, Depression Integumentary HX Skin/Integumentary Disorder: No Blood Transfusions Hx Blood Disorders: No Family Medical History Family Hx: Alcoholism 19 FATHER (grandfather) Alzheimer's disease 19 MOTHER (grandmother) Arthritis 19 FATHER Cardiovascular disease 19 FATHER 19 MOTHER Cataracts 19 MOTHER Coronary thrombosis 19 FATHER Dementia 19 MOTHER (grandparents) Diabetes mellitus 19 MOTHER Drug abuse 19 FATHER Glaucoma 19 FATHER (grandfather) Headache disorder 19 FATHER Hypercholesterolemia 19 FATHER Hypertension 19 FATHER Myocardial infarction 19 FATHER Parkinson's disease 19 MOTHER Prostate cancer 19 MOTHER (uncle brother of mother) Psychosocial problem 19 FATHER Respiratory disorder 19 FATHER (grandfather) Seizure disorder 19 MOTHER No Family History of: AIDS Abdominal aortic aneurysm [place]'s disease Aphasia Asthma Cancer of mouth Colon cancer Completed stroke Congenital disease Congenital heart disease Cystic fibrosis Deafness or hearing loss Dysphasia Fibrocystic disease of breast Gastroenteritis Infertility Kidney disease Neoplasm Severe allergy Thyroid disease Tuberculosis Visual disorder Constitutional: fever, weakness EENTM: no symptoms reported Respiratory: cough, dyspnea on exertion, short of breath, wheezing Cardiovascular: no symptoms reported Gastrointestinal: no symptoms reported Genitourinary: other (recent UTI) : No Physical Exam Vital Signs Vital Sign - Last 12Hours 01/06/17 01/06/17 18:46 22:18 Temp 99.4 Pulse 84 Resp 24 B/P (MAP) 176/99 Pulse Ox 94 O2 Delivery Room Air O2 Flow Rate 2.00 Capillary Refill : Less Than 3 Seconds General Appearance: No Apparent Distress, WD/WN Eyes: Bilateral Eye Normal Inspection HEENT: Normal ENT Inspection Neck: Full Range of Motion, Normal Inspection Respiratory: Chest Non Tender, No Respiratory Distress, Decreased Breath Sounds Cardiovascular: Regular Rate, Rhythm Gastrointestinal: Non Tender, Soft Assessment/Plan Assessment and Plan pneumonia. COPD. Asthma. Previous smoker. Recent UTI. Elevated liver enzymes Problems: Clinical Quality Measures DVT/VTE Risk/Contraindication: Risk Factor Score Per Nursin RFS Level Per Nursing on Admit: 2=Moderate ELIOT GONG DO January 07, 2017 07:29
[2017-01-07] MEDS: BENZONATATE 100 MG (TESSALON) CAPSULE PO PRN ×2 (08:14→16:13)
[2017-01-07] MEDS: CEFEPIME 2 GM/NS 50 ML IVPB IV SCH ×4 (08:34→22:16)
[2017-01-07] MEDS ORDERED: ENOXAPARIN 60 MG/0.6 ML (LOVENOX) SYR SC SCH (09:00)
[2017-01-07] MEDS: VANCOMYCIN 2000 MG/NS 500 ML IVPB IV SCH ×4 (09:40→22:45)
[2017-01-07] MEDS ORDERED: MAGNESIUM 1 GM/100 ML IVPB 100 ML IV NR (10:00)
[2017-01-07] MEDS ORDERED: LEVO500T80 PO (10:51)
[2017-01-07] MEDS ORDERED: MICO85PO2 TP (10:51)
[2017-01-07] MEDS ORDERED: ALBU18HF2 IH (10:51)
[2017-01-07] MEDS: ALPRAZolam 0.5 MG (XANAX) TAB PO PRN ×3 (11:02→23:23)
[2017-01-07] MEDS: PROMETHAZINE/DM SYRUP (PHENERGDAN DM) 5 ML UDC PO PRN ×2 (11:02→22:16)
[2017-01-07] MEDS ORDERED: CODE118S2 PO (11:06)
[2017-01-07 11:52] LABS: BILIRUBIN,URINE NEGATIVE (NEGATIVE); KETONES,URINE NEGATIVE (NEGATIVE); LEUKOCYTE ESTERASE ,URINE NEGATIVE (NEGATIVE); NITRITE,URINE NEGATIVE (NEGATIVE); PH,URINE 6 (5-9); PROTEIN,URINE 2+ (NEGATIVE); UROBILINOGEN,URINE NORMAL (NORMAL)
--- NOTE | 2017-01-07 12:21 | Pulmonary Consultation ---
History of Present Illness History of Present Illness Date of Consultation 01/07/17 12:02 Date of Admission History of Present Illness 46yo presented to ED secondary to fever (103) non-productive cough, chest congestion, SOB (worse with exertion). Symptoms began on Thursday 01/04. Pt was hx of PE and was on Xarelto at onetime. Pt has been using her INH a lot and has had little benefit. Pt was recently placed on Levaquin secondary URI. She has not improved much with Abx. Allergies and Home Medications Allergies Coded Allergies: No Known Drug Allergies (Unverified , 01/01/17) Home Medications Albuterol Sulfate 18 Gm Hfa.aer.ad, 2 PUFF IH Q4H PRN for SHORTNESS OF BREATH, ( Reported) Alprazolam 0.25 Mg Tablet, 0.5 MG PO TID PRN for ANXIETY, (Reported) TAKES 2 (0.25 MG) TABLETS Bupropion HCl 75 Mg Tablet, 75 MG PO BID, (Reported) Cyanocobalamin (Vitamin B-12) 1,000 Mcg Tablet, 1,000 MCG PO DAILY, (Reported) Diphenhydramine HCl 25 Mg Tablet, 75-87.5 MG PO HS PRN for SLEEP, (Reported) TAKES 3-3 & 1/2 (25 MG) TABLETS Gabapentin 600 Mg Tablet, 600 MG PO TID, (Reported) Levofloxacin 500 Mg Tablet, 500 MG PO DAILY, (Reported) FILLED 01/04/17 #5 FOR A 5 DAY THERAPY Miconazole Nitrate 85 Gm Powder, TP BID, (Reported) Promethazine HCl/Codeine 118 Ml Syrup, 10 ML PO TID PRN for COUGH, (Reported) Tramadol HCl 50 Mg Tablet, 50 MG PO BID PRN for PAIN-MODERATE, (Reported) Past Dftgyxw-Zgadel-Maboia Hx Patient Social History Alcohol Use: Occasionally Uses (VERY HEAVY AT TIMES) Recreational Drug Use: Yes (METH, THC, RX DRUGS WITH MULTIPLE OVERDOSES OF DRUGS AND ALCOHOL) Drug of Choice: PAST meth, thc Smoking Status: Former Smoker Type Used: Cigarettes 2nd Hand Smoke Exposure: Yes Recent Foreign Travel: No Contact w/Someone Who Travel: No Recent Infectious Disease Expo: No Recent Hopitalizations: Yes Physical Abuse Screen: No Sexual Abuse: No Immunizations Up To Date Tetanus Booster (TDap): Unknown Date of Pneumonia Vaccine: Apr 26, 2015 Date of Influenza Vaccine: Sep 09, 2012 Seasonal Allergies Seasonal Allergies: No Surgeries HX Surgeries: Yes (TRANSPOSTION/MEDIAN NERVE & CARPAL TUNNEL X 3, URETERAL STENT, LITHOTRIPSY) Surgeries: Gallbladder, Hysterectomy, Orthopedic, Renal, Tubal Ligation Respiratory Hx Respiratory Disorders: Yes Respiratory Disorders: Pneumonia, Chronic Bronchitis, Pulmonary Embolism Cardiovascular Hx Cardiac Disorders: Yes Cardiac Disorders: Hypertension Neurological Hx Neurological Disorders: Yes (PSUEDOSEIZURES) Neurological Disorders: Headaches /Migraines, Seizure Disorder 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 System Hx 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 Disorders: No Sexually Transmitted Disease: No HIV/AIDS: No Female 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 Disorders: Denies 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 Genitourinary Hx Genitourinary Disorders: Yes Genitourinary Disorders: Kidney Infection, Kidney Stones Gastrointestinal Hx Gastrointestinal Disorders: No Musculoskeletal Hx Musculoskeletal Disorders: Yes (MOST ARE SELF-REPORTED, WITH [place] MEDICAL DOCUMENTATION OF THESE CONDITIONS) Musculoskeletal Disorders: Degenerate Disk Disease, Arthritis, Fibromyalgia, Back Injury, Scoliosis, Chronic Back Pain Endocrine Hx Endocrine Disorders: Yes (MORBID OBESITY) HEENT HX ENT Disorders: Yes (TMJ PROBLEMS PER PT, EXTENSIVE DENTAL CARIES/MISSING TEETH) Cancer Hx Cancer: No Psychosocial Hx Psychiatric Problems: Yes (MULTIPLE OVERDOSES-INTENTIONAL SUICIDE ATTEMPT , AND SOME NON-SUICIDAL) Behavioral Health Disorders: Pseudo Seizures, Sleep Difficulties, Anxiety, Suicide Attempts, Depression Integumentary HX Skin/Integumentary Disorder: No Blood Transfusions Hx Blood Disorders: No Family Medical History Family Medial History: Alcoholism 19 FATHER (grandfather) Alzheimer's disease 19 MOTHER (grandmother) Arthritis 19 FATHER Cardiovascular disease 19 FATHER 19 MOTHER Cataracts 19 MOTHER Coronary thrombosis 19 FATHER Dementia 19 MOTHER (grandparents) Diabetes mellitus 19 MOTHER Drug abuse 19 FATHER Glaucoma 19 FATHER (grandfather) Headache disorder 19 FATHER Hypercholesterolemia 19 FATHER Hypertension 19 FATHER Myocardial infarction 19 FATHER Parkinson's disease 19 MOTHER Prostate cancer 19 MOTHER (uncle brother of mother) Psychosocial problem 19 FATHER Respiratory disorder 19 FATHER (grandfather) Seizure disorder 19 MOTHER No Family History of: AIDS Abdominal aortic aneurysm Vargas's disease Aphasia Asthma Cancer of mouth Colon cancer Completed stroke Congenital disease Congenital heart disease Cystic fibrosis Deafness or hearing loss Dysphasia Fibrocystic disease of breast Gastroenteritis Infertility Kidney disease Neoplasm Severe allergy Thyroid disease Tuberculosis Visual disorder Exam Exam Vital Signs Date Time Temp Pulse Resp B/P (MAP) Pulse Ox O2 Delivery O2 Flow Rate FiO2 01/07/17 08:05 97.8 74 12 155/88 93 01/07/17 08:00 94 01/07/17 07:00 73 01/07/17 04:00 94 2.00 01/07/17 04:00 98.8 70 20 168/95 93 2.00 01/07/17 01:00 81 01/07/17 00:00 99.1 01/07/17 00:00 93 2.00 01/06/17 23:21 94 2.00 01/06/17 23:21 94 01/06/17 22:30 84 01/06/17 22:30 96 2.00 01/06/17 22:18 99.9 85 18 129/76 96 2.00 01/06/17 22:04 98.9 84 24 92 01/06/17 20:10 98.9 01/06/17 19:37 100.8 01/06/17 18:56 92 01/06/17 18:46 99.4 84 24 176/99 94 Room Air 01/06/17 18:46 94 Room Air I & O 01/07/17 07:00 Intake Total 1000 ml Balance 1000 ml General Appearance: No Apparent Distress, WD/WN HEENT: Normal ENT Inspection Neck: Full Range of Motion, Normal Inspection Respiratory: Chest Non Tender, No Respiratory Distress, Decreased Breath Sounds Cardiovascular: Regular Rate, Rhythm Capillary Refill: Less Than 3 Seconds Gastrointestinal: non tender, soft Results Lab Laboratory Tests 01/06/17 18:46 01/07/17 03:52 Assessment/Plan Assessment/Plan COPD/AsthmaAE -solumedrol, SVNs Pneumonia - continue for Merrem, vanco -[facility] cultures Atelectasis Clinical Quality Measures DVT/VTE Risk/Contraindication: Risk Factor Score Per Nursin RFS Level Per Nursing on Admit: 2=Moderate BHARGAV ROUSSEAU DO January 07, 2017 12:21
[2017-01-07 12:34] LABS: GRANULAR CASTS,URINE RARE /LPF
--- NOTE | 2017-01-07 14:10 | Diagnostic Imaging Report ---
INDICATION: History of previous PE. TECHNIQUE: Ventilation study was attempted with 43 mCi Tc99m DTPA. Perfusion performed with 5.5 mCi Tc99m MAA IV. FINDINGS: Ventilation study was inadequate for evaluation. Perfusion study shows uniform distribution throughout both lobes. There are no segmental or subsegmental defects. IMPRESSION: Normal perfusion study. No segmental defects are demonstrated that would indicate PE. Findings considered low probability. Dictated by: Dictated on workstation # [id number]
[2017-01-07] MEDS: RT-ALBUTEROL/IPRATROPIUM 3 ML (DUONEB) VIAL INH SCH ×2 (14:44→20:06)
[2017-01-07] MEDS ORDERED: RT-ALBUTEROL/IPRATROPIUM 3 ML (DUONEB) VIAL INH PRN ×2 (15:00)
[2017-01-07] MEDS: NS IV 1000 ML 1,000 ML IV SCH (15:43)
[2017-01-07] MEDS: buPROPion 75 MG (WELLBUTRIN) TAB PO SCH (16:10)
[2017-01-07] MEDS ORDERED: NS IV 500 ML 500 ML ONE (20:51)
[2017-01-07] MEDS ORDERED: VANCOMYCIN 1000 MG/VIAL ONE (20:52)
[2017-01-07] MEDS: GABAPENTIN 600 MG (NEURONTIN) TAB PO SCH (22:16)
[2017-01-07] MEDS: ENOXAPARIN 40 MG/0.4 ML (LOVENOX) SYR SC SCH (22:17)
[2017-01-07] MEDS: MICONAZOLE 2% POWDER (DESENEX AF) 90 GM TP SCH (22:17)
[2017-01-07] MEDS: diphenhydrAMINE 25 MG TAB (BENADRYL) PO PRN (22:51)
[2017-01-08] MEDS: NS IV 1000 ML 1,000 ML IV SCH ×2 (00:02→07:33)
[2017-01-08] MEDS: LEVOFLOXACIN 750 MG/D5W 150 ML PRE-MIX IV SCH (01:54)
[2017-01-08] MEDS: RT-ALBUTEROL/IPRATROPIUM 3 ML (DUONEB) VIAL INH SCH ×4 (02:52→20:11)
[2017-01-08 04:17] VITALS: BP 185/94
[2017-01-08] MEDS: buPROPion 75 MG (WELLBUTRIN) TAB PO SCH ×2 (06:20→18:45)
[2017-01-08] MEDS: inSUlin (REGULAR) HUMAN 1 UNIT/0.01 ML (CHARGE PER UNIT) SC SCH ×4 (06:20→20:48)
[2017-01-08] MEDS: ALPRAZolam 0.5 MG (XANAX) TAB PO PRN ×3 (06:20→22:13)
[2017-01-08 07:33] VITALS: BP 175/123
[2017-01-08] MEDS: MICONAZOLE 2% POWDER (DESENEX AF) 90 GM TP SCH ×2 (07:34→20:37)
[2017-01-08] MEDS: BENZONATATE 100 MG (TESSALON) CAPSULE PO PRN (07:38)
[2017-01-08] MEDS: CEFEPIME 2 GM/NS 50 ML IVPB IV SCH ×2 (07:38)
[2017-01-08] MEDS: GABAPENTIN 600 MG (NEURONTIN) TAB PO SCH ×3 (07:38→20:36)
[2017-01-08] MEDS: CYANOCOBALAMIN 500 MCG TAB (VITAMIN B-12) PO SCH (07:38)
--- NOTE | 2017-01-08 07:42 | Pulmonary Progress Note ---
Subjective Subjective/Events-last exam pt still c/o SOB. no productive cough Exam Exam Vital Signs Date Time Temp Pulse Resp B/P (MAP) Pulse Ox O2 Delivery O2 Flow Rate FiO2 01/08/17 07:33 96.9 78 16 175/123 94 01/08/17 04:17 97.5 78 20 185/94 96 01/07/17 23:33 97.9 78 18 150/90 90 01/07/17 21:20 96 01/07/17 20:06 92 01/07/17 20:00 96 01/07/17 20:00 97.3 81 20 147/78 95 01/07/17 16:00 97.7 88 22 146/76 94 01/07/17 16:00 95 01/07/17 14:44 95 01/07/17 14:15 97.5 77 20 148/78 95 01/07/17 13:02 98.5 78 16 172/87 94 01/07/17 09:00 94 01/07/17 08:05 97.8 74 12 155/88 93 01/07/17 08:00 94 I & O 01/08/17 07:00 Intake Total 3102 ml Output Total 2150 ml Balance 952 ml General Appearance: No Apparent Distress, WD/WN HEENT: Normal ENT Inspection Neck: Full Range of Motion, Normal Inspection Respiratory: Chest Non Tender, No Respiratory Distress, Decreased Breath Sounds Cardiovascular: Regular Rate, Rhythm Capillary Refill: Less Than 3 Seconds Gastrointestinal: non tender, soft Results Lab Laboratory Tests 01/06/17 18:46 01/07/17 03:52 Assessment/Plan Assessment/Plan COPD/AsthmaAE -solumedrol, SVNs -V/Q is negative for PE Pneumonia - D/C vanco, and levaquin keep cefepime for 2 more days -[facility] cultures neg thus far Atelectasis Clinical Quality Measures DVT/VTE Risk/Contraindication: Risk Factor Score Per Nursin RFS Level Per Nursing on Admit: 2=Moderate BHARGAV ROUSSEUA DO January 08, 2017 07:42
--- NOTE | 2017-01-08 07:53 | Progress Note (SOAP) ---
Subjective Subjective/Events-last exam Dyspnea. Pneumonia. Hypertension. Patient feeling better today and breathing better today. Elevated serum lactic acid back down to normal. Asthma. Objective Exam Vital Signs Date Time Temp Pulse Resp B/P (MAP) Pulse Ox O2 Delivery O2 Flow Rate FiO2 01/08/17 07:33 96.9 78 16 175/123 94 01/08/17 04:17 97.5 78 20 185/94 96 01/07/17 23:33 97.9 78 18 150/90 90 01/07/17 21:20 96 01/07/17 20:06 92 01/07/17 20:00 96 01/07/17 20:00 97.3 81 20 147/78 95 01/07/17 16:00 97.7 88 22 146/76 94 01/07/17 16:00 95 01/07/17 14:44 95 01/07/17 14:15 97.5 77 20 148/78 95 01/07/17 13:02 98.5 78 16 172/87 94 01/07/17 09:00 94 01/07/17 08:05 97.8 74 12 155/88 93 01/07/17 08:00 94 I & O 01/08/17 07:00 Intake Total 3102 ml Output Total 2150 ml Balance 952 ml Capillary Refill : Less Than 3 Seconds General Appearance: No Apparent Distress HEENT: Normal ENT Inspection Neck: Full Range of Motion, Normal Inspection Respiratory: Chest Non Tender, Normal Breath Sounds, No Accessory Muscle Use, No Respiratory Distress Cardiovascular: Regular Rate, Rhythm, No Murmur Gastrointestinal: non tender, soft Results Lab Laboratory Tests 01/07/17 10:18: Urine Color YELLOW, Urine Clarity CLEAR, Urine pH 6, Urine Specific Fielding 1.020, Urine Protein 2+H, Urine Glucose (UA) 2+H, Urine Ketones NEGATIVE, Urine Nitrite NEGATIVE, Urine Bilirubin NEGATIVE, Urine Urobilinogen NORMAL, Urine Leukocyte Esterase NEGATIVE, Urine RBC (Auto) NEGATIVE, Urine RBC NONE, Urine WBC NONE, Urine Squamous Epithelial Cells 5-10, Urine Crystals NONE, Urine Bacteria TRACE, Urine Casts PRESENT, Urine Granular Casts RARE, Urine Mucus NEGATIVE, Urine Culture Indicated NO 01/07/17 11:07: Glucometer 205H 01/07/17 14:35: Lactic Acid Level 3.46*H 01/07/17 16:02: Glucometer 177H 01/07/17 19:03: Lactic Acid Level 3.05*H 01/07/17 20:44: Lactic Acid Level 2.76*H 01/07/17 21:39: Glucometer 177H 01/07/17 22:50: Lactic Acid Level 1.74 01/08/17 05:19: Glucometer 126H Microbiology 01/06/17 Blood Culture - Preliminary, Resulted No growth Assessment/Plan Assessment/Plan Assess & Plan/Chief Complaint Sepsis. Pneumonia. Hypertension. Elevated serum lactic acid back to normal. Patient breathing better. Patient feels much better than when came in Clinical Quality Measures DVT/VTE Risk/Contraindication: Risk Factor Score Per Nursin RFS Level Per Nursing on Admit: 2=Moderate HARVEY LINDSEY DO January 08, 2017 07:53
[2017-01-08] MEDS ORDERED: TROUGH ORDER-PHARMACY XX NR (08:00)
[2017-01-08 08:24] LABS: BASOPHILS % (AUTO) 0 % (0-10); EOSINOPHILS % (AUTO) 0 % (0-10); LYMPHOCYTES # (AUTO) 2.2 X 10^3 (1.0-4.0); LYMPHOCYTES % (AUTO) 16 % (12-44); MEAN CORPUSCULAR HEMOGLOBIN 29 PG (25-34); MEAN CORPUSCULAR HGB CONC 32 G/DL (32-36); MEAN CORPUSCULAR VOLUME 91 FL (80-99); MEAN PLATELET VOLUME 10.5 FL (7.4-10.4); MONOCYTES # (AUTO) 0.7 X 10^3 (0.0-1.0); MONOCYTES % (AUTO) 5 % (0-12); NEUTROPHILS % (AUTO) 79 % (42-75); PLATELET COUNT 306 10^3/uL (130-400); RED BLOOD COUNT 4.46 10^6/uL (4.35-5.85); WHITE BLOOD COUNT 13.9 10^3/uL (4.3-11.0)
--- NOTE | 2017-01-08 08:34 | Diagnostic Imaging Report ---
INDICATION: Cough and dyspnea, followup pneumonia and hypertension. DISCUSSION: 2 views of the chest were obtained, comparison 01/06/2017. Normal heart size. No focal consolidation, pleural fluid, or pneumothorax. No acute osseous abnormality. Mild dextroscoliosis of the thoracic spine is stable. IMPRESSION: No acute cardiopulmonary process. Dictated by: Dictated on workstation # [id number]
[2017-01-08 08:48] LABS: ALANINE AMINOTRANSFERASE 37 U/L (0-55); ALBUMIN 3.3 G/DL (3.2-4.5); ANION GAP 8 MMOL/L (5-14); ASPARTATE AMINO TRANSFERASE 26 U/L (5-34); BILIRUBIN,TOTAL 0.2 MG/DL (0.1-1.0); BLOOD UREA NITROGEN 9 MG/DL (7-18); BUN/CREATININE RATIO 15; CALCIUM 8.8 MG/DL (8.5-10.1); CARBON DIOXIDE 27 MMOL/L (21-32); CHLORIDE 105 MMOL/L (98-107); CREATININE SERUM 0.62 MG/DL (0.60-1.30); GFR ESTIMATED > 60; GLUCOSE 115 MG/DL (70-105); MAGNESIUM 1.8 MG/DL (1.8-2.4); POTASSIUM 3.7 MMOL/L (3.6-5.0); SODIUM 140 MMOL/L (135-145); TOTAL PROTEIN 6.8 G/DL (6.4-8.2)
[2017-01-08] MEDS ORDERED: NON-FORMULARY MEDICATION 1 EA EA (Cyanocobalamin (Vitamin B-12) (Vitamin B-12) 1,000 MCG) PO SCH (09:00)
[2017-01-08 09:05] LABS: ANISOCYTOSIS SLIGHT; BAND NEUTROPHILS 20 %; BASOPHILS % (MANUAL) 0 %; EOSINOPHILS % (MANUAL) 0 %; LYMPHOCYTES % (MANUAL) 16 %; NEUTROPHILS % (MANUAL) 61 %; REACTIVE LYMPHOCYTES 1 %
[2017-01-08] MEDS: HYDROcodone/APAP 5 MG/325 MG (LORTAB) TAB PO PRN ×3 (09:29→21:12)
[2017-01-08] MEDS: CEFEPIME INJECTION 2,000 MG in NS (IVPB) 50 ML IV SCH ×2 (09:30→20:36)
[2017-01-08] MEDS ORDERED: FUROSEMIDE 40 MG/4 ML INJ (LASIX) IVP NR (11:00)
[2017-01-08] MEDS: lisINopril 10 MG (PRINIVIL) TAB PO SCH (11:29)
[2017-01-08] MEDS: IBUPROFEN 800 MG (MOTRIN) TAB PO PRN ×2 (11:30→18:45)
[2017-01-08 11:59] VITALS: BP 160/88
[2017-01-08] MEDS: PROMETHAZINE/DM SYRUP (PHENERGDAN DM) 5 ML UDC PO PRN ×2 (13:18→18:46)
[2017-01-08] MEDS ORDERED: ALPRAZolam 0.5 MG (XANAX) TAB PO NR (14:26)
[2017-01-08 15:45] VITALS: BP 159/97
[2017-01-08 19:20] VITALS: BP 167/95
[2017-01-08] MEDS: ENOXAPARIN 40 MG/0.4 ML (LOVENOX) SYR SC SCH (20:37)
[2017-01-08] MEDS: diphenhydrAMINE 25 MG TAB (BENADRYL) PO PRN (23:45)
[2017-01-09 00:10] VITALS: BP 171/94
[2017-01-09 04:43] VITALS: BP 160/95
[2017-01-09] MEDS: inSUlin (REGULAR) HUMAN 1 UNIT/0.01 ML (CHARGE PER UNIT) SC SCH ×4 (05:24→21:53)
[2017-01-09] MEDS: RT-ALBUTEROL/IPRATROPIUM 3 ML (DUONEB) VIAL INH SCH ×5 (05:47→21:56)
[2017-01-09] MEDS: ALPRAZolam 0.5 MG (XANAX) TAB PO PRN ×3 (06:02→21:53)
[2017-01-09] MEDS: HYDROcodone/APAP 5 MG/325 MG (LORTAB) TAB PO PRN (06:02)
[2017-01-09] MEDS: buPROPion 75 MG (WELLBUTRIN) TAB PO SCH ×2 (06:02→17:10)
[2017-01-09] MEDS: BENZONATATE 100 MG (TESSALON) CAPSULE PO PRN ×2 (06:05→12:34)
[2017-01-09 06:14] LABS: BASOPHILS % (AUTO) 0 % (0-10); EOSINOPHILS % (AUTO) 0 % (0-10); LYMPHOCYTES # (AUTO) 2.7 X 10^3 (1.0-4.0); LYMPHOCYTES % (AUTO) 27 % (12-44); MEAN CORPUSCULAR HEMOGLOBIN 30 PG (25-34); MEAN CORPUSCULAR HGB CONC 33 G/DL (32-36); MEAN CORPUSCULAR VOLUME 91 FL (80-99); MEAN PLATELET VOLUME 10.2 FL (7.4-10.4); MONOCYTES # (AUTO) 0.6 X 10^3 (0.0-1.0); MONOCYTES % (AUTO) 6 % (0-12); NEUTROPHILS # (AUTO) 6.6 X 10^3 (1.8-7.8); NEUTROPHILS % (AUTO) 66 % (42-75); PLATELET COUNT 292 10^3/uL (130-400); RED BLOOD COUNT 4.68 10^6/uL (4.35-5.85); RED CELL DISTRIBUTION WIDTH 15.1 % (10.0-14.5)
[2017-01-09 06:34] LABS: ANION GAP 12 MMOL/L (5-14); BLOOD UREA NITROGEN 12 MG/DL (7-18); BUN/CREATININE RATIO 18; CALCIUM 8.5 MG/DL (8.5-10.1); CARBON DIOXIDE 24 MMOL/L (21-32); CHLORIDE 105 MMOL/L (98-107); CREATININE SERUM 0.68 MG/DL (0.60-1.30); GFR ESTIMATED > 60; GLUCOSE 82 MG/DL (70-105); POTASSIUM 3.8 MMOL/L (3.6-5.0); SODIUM 141 MMOL/L (135-145)
[2017-01-09] MEDS: IBUPROFEN 800 MG (MOTRIN) TAB PO PRN ×2 (07:14→15:17)
[2017-01-09] MEDS: PROMETHAZINE/DM SYRUP (PHENERGDAN DM) 5 ML UDC PO PRN ×3 (07:37→20:46)
[2017-01-09] MEDS: CYANOCOBALAMIN 500 MCG TAB (VITAMIN B-12) PO SCH (07:37)
[2017-01-09] MEDS: lisINopril 10 MG (PRINIVIL) TAB PO SCH (07:37)
[2017-01-09] MEDS: MICONAZOLE 2% POWDER (DESENEX AF) 90 GM TP SCH ×2 (07:38→20:47)
[2017-01-09] MEDS: GABAPENTIN 600 MG (NEURONTIN) TAB PO SCH ×3 (07:38→20:47)
[2017-01-09] MEDS: CEFEPIME INJECTION 2,000 MG in NS (IVPB) 50 ML IV SCH ×2 (07:38→20:46)
[2017-01-09 07:48] VITALS: BP_SYST 121; BP_SYST 166; BP_DIAS 78; BP_DIAS 92
--- NOTE | 2017-01-09 07:51 | Progress Note (SOAP) ---
Subjective Subjective/Events-last exam Pneumonia. Sepsis. Dyspnea. Hypoxia. Patient still complaining of some shortness of breath. Patient having pain in the lungs on the right lower side. Patient still a work in progress Patient telling me about her daughter's wedding this Saturday and rehearsal . Patient talking about a pass. Objective Exam Vital Signs Date Time Temp Pulse Resp B/P (MAP) Pulse Ox O2 Delivery O2 Flow Rate FiO2 01/09/17 05:48 97 01/09/17 04:43 97.2 68 18 160/95 94 01/09/17 00:30 93 01/09/17 00:10 97.9 67 18 171/94 93 01/08/17 19:20 98.0 78 19 167/95 93 01/08/17 15:45 98.0 81 20 159/97 92 01/08/17 15:13 95 01/08/17 11:59 98.3 77 20 160/88 93 01/08/17 10:05 94 01/08/17 09:00 94 I & O 01/09/17 07:00 Intake Total 2660 ml Output Total 950 ml Balance 1710 ml Capillary Refill : Less Than 3 Seconds General Appearance: WD/WN HEENT: Normal ENT Inspection Neck: Full Range of Motion, Normal Inspection Respiratory: Chest Non Tender, No Accessory Muscle Use, No Respiratory Distress , Decreased Breath Sounds Cardiovascular: Regular Rate, Rhythm, No Murmur Gastrointestinal: non tender, soft Results Lab Laboratory Tests 01/08/17 08:15 01/09/17 05:38 Laboratory Tests 01/08/17 08:15: White Blood Count 13.9H, Red Blood Count 4.46, Hemoglobin 13.0, Hematocrit 41, Mean Corpuscular Volume 91, Mean Corpuscular Hemoglobin 29, Mean Corpuscular Hemoglobin Concent 32, Red Cell Distribution Width 15.0H, Platelet Count 306, Mean Platelet Volume 10.5H, Neutrophils (%) (Auto) 79H, Lymphocytes (%) (Auto) 16, Monocytes (%) (Auto) 5, Eosinophils (%) (Auto) 0, Basophils (%) (Auto) 0, Neutrophils # (Auto) 11.0H, Lymphocytes # (Auto) 2.2, Monocytes # (Auto) 0.7, Eosinophils # (Auto) 0.0, Basophils # (Auto) 0.0, Neutrophils % (Manual) 61, Lymphocytes % (Manual) 16, Monocytes % (Manual) 2, Eosinophils % (Manual) 0, Basophils % (Manual) 0, Band Neutrophils 20, Reactive Lymphocytes 1, Anisocytosis SLIGHT, Sodium Level 140, Potassium Level 3.7, Chloride Level 105, Carbon Dioxide Level 27, Anion Gap 8, Blood Urea Nitrogen 9, Creatinine 0.62, Estimat Glomerular Filtration Rate > 60, BUN/Creatinine Ratio 15, Glucose Level 115H, Calcium Level 8.8, Magnesium Level 1.8, Total Bilirubin 0.2, Aspartate Amino Transf (AST/SGOT) 26, Alanine Aminotransferase (ALT/SGPT) 37, Alkaline Phosphatase 89, Total Protein 6.8, Albumin 3.3, Vancomycin Level Trough 13.8 01/08/17 11:00: Glucometer 159H 01/08/17 15:43: Glucometer 109 01/08/17 20:47: Glucometer 110 01/09/17 05:13: Glucometer 87 01/09/17 05:38: White Blood Count 10.0, Red Blood Count 4.68, Hemoglobin 13.9, Hematocrit 43, Mean Corpuscular Volume 91, Mean Corpuscular Hemoglobin 30, Mean Corpuscular Hemoglobin Concent 33, Red Cell Distribution Width 15.1H, Platelet Count 292, Mean Platelet Volume 10.2, Neutrophils (%) (Auto) 66, Lymphocytes (%) (Auto) 27 , Monocytes (%) (Auto) 6, Eosinophils (%) (Auto) 0, Basophils (%) (Auto) 0, Neutrophils # (Auto) 6.6, Lymphocytes # (Auto) 2.7, Monocytes # (Auto) 0.6, Eosinophils # (Auto) 0.0, Basophils # (Auto) 0.0, Sodium Level 141, Potassium Level 3.8, Chloride Level 105, Carbon Dioxide Level 24, Anion Gap 12, Blood Urea Nitrogen 12, Creatinine 0.68, Estimat Glomerular Filtration Rate > 60, BUN/ Creatinine Ratio 18, Glucose Level 82, Calcium Level 8.5 Microbiology 01/07/17 Blood Culture - Preliminary, Resulted No growth Assessment/Plan Assessment/Plan Assess & Plan/Chief Complaint Sepsis. Pneumonia. Hypertension. Elevated serum lactic acid back to normal. Patient breathing better. Patient feels much better than when came in. . 01/09/17 area Pneumonia. Sepsis. Hypertension. Patient still having some problems with shortness of breath. Chest x-ray yesterday was normal but CAT scan was abnormal showing pneumonia. Patient still a work in progress Clinical Quality Measures DVT/VTE Risk/Contraindication: Risk Factor Score Per Nursin RFS Level Per Nursing on Admit: 2=Moderate HARVEY LINDSEY DO January 09, 2017 07:51
--- NOTE | 2017-01-09 08:40 | Pulmonary Progress Note ---
Subjective Subjective/Events-last exam pt feels more SOB and wheezing Exam Exam Vital Signs Date Time Temp Pulse Resp B/P (MAP) Pulse Ox O2 Delivery O2 Flow Rate FiO2 01/09/17 07:48 97.9 74 18 166/92 95 01/09/17 05:48 97 01/09/17 04:43 97.2 68 18 160/95 94 01/09/17 00:30 93 01/09/17 00:10 97.9 67 18 171/94 93 01/08/17 19:20 98.0 78 19 167/95 93 01/08/17 15:45 98.0 81 20 159/97 92 01/08/17 15:13 95 01/08/17 11:59 98.3 77 20 160/88 93 01/08/17 10:05 94 01/08/17 09:00 94 I & O 01/09/17 07:00 Intake Total 2660 ml Output Total 950 ml Balance 1710 ml General Appearance: No Apparent Distress, WD/WN HEENT: Normal ENT Inspection Neck: Full Range of Motion, Normal Inspection Respiratory: Chest Non Tender, No Respiratory Distress, Decreased Breath Sounds Cardiovascular: Regular Rate, Rhythm Capillary Refill: Less Than 3 Seconds Gastrointestinal: non tender, soft Results Lab Laboratory Tests 01/08/17 08:15 01/09/17 05:38 Assessment/Plan Assessment/Plan COPD/AsthmaAE -restart solumedrol, SVNs -V/Q is negative for PE Pneumonia - D/C vanco, and levaquin keep cefepime for 1 more day -[facility] cultures neg thus far Atelectasis Clinical Quality Measures DVT/VTE Risk/Contraindication: Risk Factor Score Per Nursin RFS Level Per Nursing on Admit: 2=Moderate BHARGAV ROUSSEAU DO January 09, 2017 08:39
--- NOTE | 2017-01-09 09:41 | Pulmonary Progress Note ---
Exam Exam Vital Signs Date Time Temp Pulse Resp B/P (MAP) Pulse Ox O2 Delivery O2 Flow Rate FiO2 01/09/17 07:48 97.9 74 18 166/92 95 01/09/17 05:48 97 01/09/17 04:43 97.2 68 18 160/95 94 01/09/17 00:30 93 01/09/17 00:10 97.9 67 18 171/94 93 01/08/17 19:20 98.0 78 19 167/95 93 01/08/17 15:45 98.0 81 20 159/97 92 01/08/17 15:13 95 01/08/17 11:59 98.3 77 20 160/88 93 01/08/17 10:05 94 I & O 01/09/17 07:00 Intake Total 2660 ml Output Total 950 ml Balance 1710 ml General Appearance: No Apparent Distress, WD/WN HEENT: Normal ENT Inspection Neck: Full Range of Motion, Normal Inspection Respiratory: Chest Non Tender, No Respiratory Distress, Decreased Breath Sounds Cardiovascular: Regular Rate, Rhythm Capillary Refill: Less Than 3 Seconds Gastrointestinal: non tender, soft Results Lab Laboratory Tests 01/08/17 08:15 01/09/17 05:38 Assessment/Plan Assessment/Plan COPD/AsthmaAE -solumedrol- d/c'd , SVNs -V/Q is negative for PE Pneumonia - D/C vanco, and levaquin keep cefepime for 1 more day -[facility] cultures neg thus far Atelectasis Clinical Quality Measures DVT/VTE Risk/Contraindication: Risk Factor Score Per Nursin RFS Level Per Nursing on Admit: 2=Moderate BHARGAV ROUSSEAU DO January 09, 2017 09:41
[2017-01-09] MEDS ORDERED: methylPREDNISolone 125 MG (Solu-MEDROL) VIAL IVP NR (09:45)
[2017-01-09 11:49] VITALS: BP 142/85
[2017-01-09] MEDS: methylPREDNISolone 40 MG/ML (Solu-MEDROL) VIAL IV SCH ×3 (11:49→23:54)
[2017-01-09] MEDS ORDERED: RT-ALBUTEROL/IPRATROPIUM 3 ML (DUONEB) VIAL INH PRN (12:00)
[2017-01-09] MEDS: CATHETER FLUSH 10 ML SYR IV SCH ×2 (12:34→22:13)
[2017-01-09] MEDS: HYDROcodone/APAP 7.5 MG/325 MG (LORTAB, LORCET PLUS) TABLET PO PRN ×3 (12:34→21:53)
--- NOTE | 2017-01-09 12:39 | Anesthesia-Procedure Note ---
Procedure Start/Stop Time Date of Procedure: January 09, 2017 Start Time: 12:23 Referring Physician: Farideh Stop Time: 12:26 Procedures/Interventions IV : Location: Right Site: Forearm IV Catheter Type: Peripheral IV IV Catheter Gauge: 22 Progress completed ALEXI GALLEGO CRNA January 09, 2017 12:39
[2017-01-09] MEDS: NICOTINE 14 MG (NICODERM) PATCH TD SCH (15:17)
[2017-01-09 15:55] VITALS: BP 145/85
[2017-01-09 19:40] VITALS: BP 176/97
[2017-01-09] MEDS: ENOXAPARIN 40 MG/0.4 ML (LOVENOX) SYR SC SCH (20:47)
[2017-01-09] MEDS: diphenhydrAMINE 25 MG TAB (BENADRYL) PO PRN (20:53)
[2017-01-10] VITALS: BP 141/74
[2017-01-10] MEDS: RT-ALBUTEROL/IPRATROPIUM 3 ML (DUONEB) VIAL INH SCH ×6 (02:00→22:01)
[2017-01-10 04:00] VITALS: BP 165/95
[2017-01-10] MEDS: HYDROcodone/APAP 7.5 MG/325 MG (LORTAB, LORCET PLUS) TABLET PO PRN ×2 (04:43→07:52)
[2017-01-10] MEDS: ALPRAZolam 0.5 MG (XANAX) TAB PO PRN ×3 (05:00→21:12)
[2017-01-10 05:11] LABS: BASOPHILS # (AUTO) 0.1 10^3/uL (0.0-0.1); BASOPHILS % (AUTO) 1 % (0-10); EOSINOPHILS % (AUTO) 0 % (0-10); LYMPHOCYTES # (AUTO) 1.6 X 10^3 (1.0-4.0); LYMPHOCYTES % (AUTO) 13 % (12-44); MEAN CORPUSCULAR HEMOGLOBIN 29 PG (25-34); MEAN CORPUSCULAR HGB CONC 33 G/DL (32-36); MEAN CORPUSCULAR VOLUME 90 FL (80-99); MEAN PLATELET VOLUME 10.2 FL (7.4-10.4); MONOCYTES # (AUTO) 0.4 X 10^3 (0.0-1.0); MONOCYTES % (AUTO) 3 % (0-12); NEUTROPHILS # (AUTO) 9.7 X 10^3 (1.8-7.8); NEUTROPHILS % (AUTO) 83 % (42-75); PLATELET COUNT 298 10^3/uL (130-400); RED BLOOD COUNT 4.76 10^6/uL (4.35-5.85); RED CELL DISTRIBUTION WIDTH 14.4 % (10.0-14.5); WHITE BLOOD COUNT 11.8 10^3/uL (4.3-11.0)
[2017-01-10 05:28] LABS: ANION GAP 11 MMOL/L (5-14); BLOOD UREA NITROGEN 11 MG/DL (7-18); BUN/CREATININE RATIO 18; CALCIUM 9.4 MG/DL (8.5-10.1); CARBON DIOXIDE 22 MMOL/L (21-32); CHLORIDE 102 MMOL/L (98-107); CREATININE SERUM 0.61 MG/DL (0.60-1.30); GFR ESTIMATED > 60; GLUCOSE 152 MG/DL (70-105); POTASSIUM 4.7 MMOL/L (3.6-5.0); SODIUM 135 MMOL/L (135-145)
[2017-01-10] MEDS: inSUlin (REGULAR) HUMAN 1 UNIT/0.01 ML (CHARGE PER UNIT) SC SCH ×4 (05:48→21:13)
[2017-01-10] MEDS: buPROPion 75 MG (WELLBUTRIN) TAB PO SCH ×2 (06:03→18:06)
[2017-01-10] MEDS: methylPREDNISolone 40 MG/ML (Solu-MEDROL) VIAL IV SCH ×3 (06:03→18:06)
[2017-01-10] MEDS: CATHETER FLUSH 10 ML SYR IV SCH ×3 (06:03→22:10)
--- NOTE | 2017-01-10 07:16 | Pulmonary Progress Note ---
Subjective Subjective/Events-last exam pt feels better less wheezing. She wants to go home. Exam Exam Vital Signs Date Time Temp Pulse Resp B/P (MAP) Pulse Ox O2 Delivery O2 Flow Rate FiO2 01/10/17 05:18 92 01/10/17 04:00 97.7 77 19 165/95 94 01/10/17 00:00 98.4 67 19 141/74 94 01/09/17 21:57 92 01/09/17 19:40 97.6 76 22 176/97 94 01/09/17 18:34 94 01/09/17 15:55 97.8 75 21 145/85 96 01/09/17 14:36 96 2.00 01/09/17 11:49 97.6 69 18 142/85 93 01/09/17 09:59 98 2.00 01/09/17 09:00 95 01/09/17 07:48 97.9 74 18 166/92 95 I & O 01/10/17 07:00 Intake Total 2020 ml Output Total 2775 ml Balance -755 ml General Appearance: No Apparent Distress, WD/WN HEENT: Normal ENT Inspection Neck: Full Range of Motion, Normal Inspection Respiratory: Chest Non Tender, No Respiratory Distress, Decreased Breath Sounds Cardiovascular: Regular Rate, Rhythm Capillary Refill: Less Than 3 Seconds Gastrointestinal: non tender, soft Results Lab Laboratory Tests 01/08/17 08:15 01/09/17 05:38 01/10/17 04:40 Assessment/Plan Assessment/Plan COPD/AsthmaAE -solumedrol, SVNs -V/Q is negative for PE Pneumonia - D/C vanco, and levaquin keep cefepime for 1 more day -[facility] cultures neg thus far Atelectasis Clinical Quality Measures DVT/VTE Risk/Contraindication: Risk Factor Score Per Nursin RFS Level Per Nursing on Admit: 2=Moderate BHARGAV ROUSSEAU DO January 10, 2017 07:15
[2017-01-10 07:20] VITALS: BP 176/100
--- NOTE | 2017-01-10 08:06 | Progress Note (SOAP) ---
Subjective Subjective/Events-last exam dyspnea. Hypoxia. Pneumonia. Patient breathing better today. Asthma. Wheezing not today. Plan to discharge tomorrow if keeps on improving Objective Exam Vital Signs Date Time Temp Pulse Resp B/P (MAP) Pulse Ox O2 Delivery O2 Flow Rate FiO2 01/10/17 07:52 99.4 01/10/17 07:20 99.4 74 20 176/100 95 01/10/17 05:18 92 01/10/17 04:00 97.7 77 19 165/95 94 01/10/17 00:00 98.4 67 19 141/74 94 01/09/17 21:57 92 01/09/17 19:40 97.6 76 22 176/97 94 01/09/17 18:34 94 01/09/17 15:55 97.8 75 21 145/85 96 01/09/17 14:36 96 2.00 01/09/17 11:49 97.6 69 18 142/85 93 01/09/17 09:59 98 2.00 01/09/17 09:00 95 I & O 01/10/17 07:00 Intake Total 2020 ml Output Total 2775 ml Balance -755 ml Capillary Refill : Less Than 3 Seconds General Appearance: No Apparent Distress, WD/WN HEENT: Normal ENT Inspection Neck: Full Range of Motion, Normal Inspection Respiratory: Chest Non Tender, No Accessory Muscle Use, No Respiratory Distress Cardiovascular: Regular Rate, Rhythm, No Murmur Gastrointestinal: non tender, soft Results Lab Laboratory Tests 01/10/17 04:40 Laboratory Tests 01/09/17 10:52: Glucometer 80 01/09/17 15:52: Glucometer 182H 01/09/17 21:36: Glucometer 257H 01/10/17 04:40: White Blood Count 11.8H, Red Blood Count 4.76, Hemoglobin 14.0, Hematocrit 43, Mean Corpuscular Volume 90, Mean Corpuscular Hemoglobin 29, Mean Corpuscular Hemoglobin Concent 33, Red Cell Distribution Width 14.4, Platelet Count 298, Mean Platelet Volume 10.2, Neutrophils (%) (Auto) 83H, Lymphocytes (%) (Auto) 13 , Monocytes (%) (Auto) 3, Eosinophils (%) (Auto) 0, Basophils (%) (Auto) 1, Neutrophils # (Auto) 9.7H, Lymphocytes # (Auto) 1.6, Monocytes # (Auto) 0.4, Eosinophils # (Auto) 0.0, Basophils # (Auto) 0.1, Sodium Level 135, Potassium Level 4.7, Chloride Level 102, Carbon Dioxide Level 22, Anion Gap 11, Blood Urea Nitrogen 11, Creatinine 0.61, Estimat Glomerular Filtration Rate > 60, BUN/ Creatinine Ratio 18, Glucose Level 152H, Calcium Level 9.4 Microbiology 01/07/17 Blood Culture - Preliminary, Resulted No growth Assessment/Plan Assessment/Plan Assess & Plan/Chief Complaint Sepsis. Pneumonia. Hypertension. Elevated serum lactic acid back to normal. Patient breathing better. Patient feels much better than when came in. . 01/09/17 area Pneumonia. Sepsis. Hypertension. Patient still having some problems with shortness of breath. Chest x-ray yesterday was normal but CAT scan was abnormal showing pneumonia. Patient still a work in progress. . 01/10/17. Pneumonia. Sepsis. hypertension. Patient breathing better today. Increase the dose of lisinopril. Clinical Quality Measures DVT/VTE Risk/Contraindication: Risk Factor Score Per Nursin RFS Level Per Nursing on Admit: 2=Moderate HARVEY LINDSEY DO January 10, 2017 08:06
[2017-01-10] MEDS: NICOTINE 14 MG (NICODERM) PATCH TD SCH (09:00)
[2017-01-10] MEDS: GABAPENTIN 600 MG (NEURONTIN) TAB PO SCH ×3 (09:00→21:12)
[2017-01-10] MEDS: CYANOCOBALAMIN 500 MCG TAB (VITAMIN B-12) PO SCH (09:00)
[2017-01-10] MEDS: NICOTINE PATCH REMOVAL TP SCH (09:00)
[2017-01-10] MEDS: MICONAZOLE 2% POWDER (DESENEX AF) 90 GM TP SCH ×2 (09:01→21:11)
[2017-01-10] MEDS: lisINopril 20 MG (ZESTRIL) TAB PO SCH (09:04)
[2017-01-10 11:58] VITALS: BP 85/61
[2017-01-10] MEDS: PROMETHAZINE/DM SYRUP (PHENERGDAN DM) 5 ML UDC PO PRN ×2 (14:17→22:10)
[2017-01-10] MEDS: BENZONATATE 100 MG (TESSALON) CAPSULE PO PRN (14:17)
[2017-01-10 16:00] VITALS: BP 159/94
[2017-01-10 20:00] VITALS: BP 168/96
[2017-01-10] MEDS: IBUPROFEN 800 MG (MOTRIN) TAB PO PRN (21:12)
[2017-01-10] MEDS: ENOXAPARIN 40 MG/0.4 ML (LOVENOX) SYR SC SCH (21:12)
[2017-01-10] MEDS: diphenhydrAMINE 25 MG TAB (BENADRYL) PO PRN (21:12)
[2017-01-11] MEDS: methylPREDNISolone 40 MG/ML (Solu-MEDROL) VIAL IV SCH ×2 (00:08→06:09)
[2017-01-11] MEDS: HYDROcodone/APAP 7.5 MG/325 MG (LORTAB, LORCET PLUS) TABLET PO PRN ×3 (00:08→12:50)
[2017-01-11 00:40] VITALS: BP 162/84
[2017-01-11] MEDS: RT-ALBUTEROL/IPRATROPIUM 3 ML (DUONEB) VIAL INH SCH ×3 (02:00→10:29)
[2017-01-11 06:03] LABS: MEAN PLATELET VOLUME 9.8 FL (7.4-10.4); RED BLOOD COUNT 4.76 10^6/uL (4.35-5.85); RED CELL DISTRIBUTION WIDTH 14.8 % (10.0-14.5); WHITE BLOOD COUNT 17.4 10^3/uL (4.3-11.0)
[2017-01-11] MEDS: inSUlin (REGULAR) HUMAN 1 UNIT/0.01 ML (CHARGE PER UNIT) SC SCH ×2 (06:09→11:00)
[2017-01-11] MEDS: CATHETER FLUSH 10 ML SYR IV SCH (06:09)
[2017-01-11 06:28] LABS: ANION GAP 11 MMOL/L (5-14); BLOOD UREA NITROGEN 15 MG/DL (7-18); BUN/CREATININE RATIO 23; CALCIUM 9.6 MG/DL (8.5-10.1); CARBON DIOXIDE 23 MMOL/L (21-32); CHLORIDE 102 MMOL/L (98-107); CREATININE SERUM 0.66 MG/DL (0.60-1.30); GFR ESTIMATED > 60; GLUCOSE 155 MG/DL (70-105); POTASSIUM 4.6 MMOL/L (3.6-5.0); SODIUM 136 MMOL/L (135-145)
--- NOTE | 2017-01-11 06:49 | Pulmonary Progress Note ---
Subjective Subjective/Events-last exam pt feels better less wheezing. She wants to go home. Exam Exam Vital Signs Date Time Temp Pulse Resp B/P (MAP) Pulse Ox O2 Delivery O2 Flow Rate FiO2 01/11/17 00:40 97.4 68 18 162/84 95 01/10/17 22:01 94 01/10/17 20:00 96.4 86 12 168/96 93 01/10/17 19:06 94 01/10/17 16:00 97.4 76 18 159/94 92 01/10/17 15:22 94 01/10/17 11:58 97.3 75 20 85/61 96 01/10/17 11:58 98.2 01/10/17 11:23 99.4 01/10/17 10:08 94 01/10/17 08:25 98.2 01/10/17 07:52 99.4 01/10/17 07:20 99.4 74 20 176/100 95 I & O 01/11/17 07:00 Intake Total 1260 ml Balance 1260 ml General Appearance: No Apparent Distress, WD/WN HEENT: Normal ENT Inspection Neck: Full Range of Motion, Normal Inspection Respiratory: Chest Non Tender, No Respiratory Distress, Decreased Breath Sounds Cardiovascular: Regular Rate, Rhythm Capillary Refill: Less Than 3 Seconds Gastrointestinal: non tender, soft Results Lab Laboratory Tests 01/10/17 04:40 01/11/17 05:51 Assessment/Plan Assessment/Plan COPD/AsthmaAE -solumedrol-- change to long prednisone taper, SVNs -V/Q is negative for PE Pneumonia - D/C vanco, and levaquin keep cefepime for 1 more day -[facility] cultures neg thus far Atelectasis Pt is ok to go home from pulmonary standpoint with prednisone taper. i will have her f/u with my office in 1 -2 wks. 232 Clinical Quality Measures DVT/VTE Risk/Contraindication: Risk Factor Score Per Nursin RFS Level Per Nursing on Admit: 2=Moderate BHARGAV ROUSSEAU DO January 11, 2017 06:49
[2017-01-11] MEDS: NICOTINE 14 MG (NICODERM) PATCH TD SCH (07:53)
[2017-01-11] MEDS: CYANOCOBALAMIN 500 MCG TAB (VITAMIN B-12) PO SCH (07:53)
[2017-01-11] MEDS: IBUPROFEN 800 MG (MOTRIN) TAB PO PRN (07:54)
[2017-01-11] MEDS: lisINopril 20 MG (ZESTRIL) TAB PO SCH (07:54)
[2017-01-11] MEDS: BENZONATATE 100 MG (TESSALON) CAPSULE PO PRN (07:54)
[2017-01-11] MEDS: ALPRAZolam 0.5 MG (XANAX) TAB PO PRN ×2 (07:54→12:50)
[2017-01-11] MEDS: GABAPENTIN 600 MG (NEURONTIN) TAB PO SCH ×2 (07:54→12:50)
[2017-01-11] MEDS: PROMETHAZINE/DM SYRUP (PHENERGDAN DM) 5 ML UDC PO PRN (07:55)
[2017-01-11] MEDS: NICOTINE PATCH REMOVAL TP SCH (08:03)
[2017-01-11] MEDS: MICONAZOLE 2% POWDER (DESENEX AF) 90 GM TP SCH (08:03)
[2017-01-11] MEDS: buPROPion 75 MG (WELLBUTRIN) TAB PO SCH (08:03)
--- NOTE | 2017-01-11 08:22 | Progress Note (SOAP) ---
Subjective Subjective/Events-last exam Patient feeling better and breathing better. Lungs are much clearer. Patient wants to go home today. Dyspnea. Hypoxia. Pneumonia. Asthma. Hypertension Objective Exam Vital Signs Date Time Temp Pulse Resp B/P (MAP) Pulse Ox O2 Delivery O2 Flow Rate FiO2 01/11/17 06:46 92 01/11/17 00:40 97.4 68 18 162/84 95 01/10/17 22:01 94 01/10/17 20:00 96.4 86 12 168/96 93 01/10/17 19:06 94 01/10/17 16:00 97.4 76 18 159/94 92 01/10/17 15:22 94 01/10/17 11:58 97.3 75 20 85/61 96 01/10/17 11:58 98.2 01/10/17 11:23 99.4 01/10/17 10:08 94 01/10/17 08:25 98.2 I & O 01/11/17 07:00 Intake Total 1460 ml Balance 1460 ml Capillary Refill : Less Than 3 Seconds General Appearance: No Apparent Distress, WD/WN HEENT: Normal ENT Inspection Neck: Full Range of Motion, Normal Inspection Respiratory: Chest Non Tender, Normal Breath Sounds, No Accessory Muscle Use, No Respiratory Distress Cardiovascular: Regular Rate, Rhythm, No Murmur Gastrointestinal: non tender, soft Results Lab Laboratory Tests 01/10/17 11:04: Glucometer 218H 01/10/17 15:56: Glucometer 132H 01/10/17 21:01: Glucometer 178H 01/11/17 05:39: Glucometer 160H 01/11/17 05:51: White Blood Count 17.4H, Red Blood Count 4.76, Hemoglobin 13.9, Hematocrit 43, Mean Corpuscular Volume 90, Mean Corpuscular Hemoglobin 29, Mean Corpuscular Hemoglobin Concent 33, Red Cell Distribution Width 14.8H, Platelet Count 338, Mean Platelet Volume 9.8, Sodium Level 136, Potassium Level 4.6, Chloride Level 102, Carbon Dioxide Level 23, Anion Gap 11, Blood Urea Nitrogen 15, Creatinine 0.66, Estimat Glomerular Filtration Rate > 60, BUN/Creatinine Ratio 23, Glucose Level 155H, Calcium Level 9.6 Microbiology 01/07/17 Blood Culture - Preliminary, Resulted No growth Assessment/Plan Assessment/Plan Assess & Plan/Chief Complaint Sepsis. Pneumonia. Hypertension. Elevated serum lactic acid back to normal. Patient breathing better. Patient feels much better than when came in. . 01/09/17 area Pneumonia. Sepsis. Hypertension. Patient still having some problems with shortness of breath. Chest x-ray yesterday was normal but CAT scan was abnormal showing pneumonia. Patient still a work in progress. . 01/10/17. Pneumonia. Sepsis. hypertension. Patient breathing better today. Increase the dose of lisinopril.. . 01/11/17. Sepsis. Pneumonia. Hypertension. Elevated serum lactic acid. Patient doing good today. Patient wants to go home. Clinical Quality Measures DVT/VTE Risk/Contraindication: Risk Factor Score Per Nursin RFS Level Per Nursing on Admit: 2=Moderate HARVEY LINDSEY DO January 11, 2017 08:22
[2017-01-11] MEDS ORDERED: predniSONE 10 MG TAB PO SCH (09:00)
[2017-01-11] MEDS ORDERED: LISI-552 PO (11:28)
[2017-01-11] MEDS ORDERED: CEFD300C3 PO (11:28)
--- NOTE | 2017-01-11 11:59 | Physician Query ---
PQ-Uncertain Diagnosis Admission/Discharge Admission Date: January 06, 2017 at 20:30 Discharge Date: The medical record reflects the following clinical scenario: History/Risk Factors: COPD, Pneumonia Clinical Findings: WBC 7.3, Lactic acid 3.46, T99.4, P 84, R 24 Treatment: IV Rocephin Question: Is Sepsis a clinically valid diagnosis? Sepsis was documented in the 01/08 PN's and subsequent PN's by one provider with no further documentation in the medical record. Please document a response below. PHYSICIAN RESPONSE Diagnosis clinically valid: Yes, Conditon resolved Please remember a lack of response to the above will prompt a phone page by [facility]/ coding staff. In responding to this query, please exercise your independent professional judgment. The purpose of this communication is to more accurately reflect the complexity of your patients condition. The fact that a question is asked does not imply that any particular answer is desired or expected. Thank you for your timely response to this clarification. Requestors name: Mehran THIS PHYSICIAN QUERY FORM IS A PERMANENT PART OF THE MEDICAL RECORD MEHRAN CAI January 11, 2017 11:59 HARVEY LINDSEY DO January 12, 2017 07:34
[2017-01-11] MEDS ORDERED: PRD10T PO (12:41)
[2017-01-11 12:53] VITALS: BP 160/90
--- NOTE | 2017-01-14 17:30 | Discharge Summary ---
Diagnosis/Chief Complaint Date of Admission January 06, 2017 at 20:30 Date of Discharge January 11, 2017 at 16:24 Admission Diagnosis Admission Diagnosis pneumonia. COPD. Asthma. Previous smoker. Recent UTI. Elevated liver enzymes Discharge Diagnosis COPD. with acute exacerbation Asthma. Pneumonia.. Elevated liver tests. Elevated lactic acid. Fever. Body mass index 50/59 area Personal history of nicotine dependence. Previous personal history of pulmonary embolism. Sepsis Reason Hospital Visit patient came to the emergency room last night due to having cough and short of breath and running an elevated temperature of 103. Patient has history of PE in 2014. Patient that time was put on xerrato. Patient recently in the hospital for UTI and elevated liver enzymes Patient states she gets pneumonia and bronchitis easily. Patient stopped smoking 2 weeks ago after smoking for 9 years. Patient states she gets pneumonia and bronchitis easily. Chest x-ray yesterday negative a CAT scan shows pneumonia. Patient admitted Discharge Summary Consultations pulmonology Discharge Physical Examination Allergies: Coded Allergies: No Known Drug Allergies (Unverified , 01/01/17) Vitals & I&Os Vital Signs Date Time Temp Pulse Resp B/P (MAP) Pulse Ox O2 Delivery O2 Flow Rate FiO2 01/11/17 16:22 01/11/17 12:53 97.3 82 22 96 01/09/17 14:36 2.00 Hospital Course patient in hospital did better and was breathing better when discharged Labs (last 24 hrs) Laboratory Tests 01/06/17 18:46: White Blood Count 7.3, Red Blood Count 4.39, Hemoglobin 12.9, Hematocrit 40, Mean Corpuscular Volume 91, Mean Corpuscular Hemoglobin 29, Mean Corpuscular Hemoglobin Concent 32, Red Cell Distribution Width 14.8H, Platelet Count 220, Mean Platelet Volume 11.0H, Neutrophils (%) (Auto) 76H, Lymphocytes (%) (Auto) 16, Monocytes (%) (Auto) 6, Eosinophils (%) (Auto) 1, Basophils (%) (Auto) 2, Neutrophils # (Auto) 5.6, Lymphocytes # (Auto) 1.2, Monocytes # (Auto) 0.4, Eosinophils # (Auto) 0.0, Basophils # (Auto) 0.1, Prothrombin Time 14.1, INR Comment 1.1, Activated Partial Thromboplast Time 39H, Sodium Level 141, Potassium Level 3.7, Chloride Level 103, Carbon Dioxide Level 27, Anion Gap 11, Blood Urea Nitrogen 9, Creatinine 0.72, Estimat Glomerular Filtration Rate > 60 , BUN/Creatinine Ratio 13, Glucose Level 116H, Lactic Acid Level 1.27, Calcium Level 8.9, Total Bilirubin 0.2, Aspartate Amino Transf (AST/SGOT) 27, Alanine Aminotransferase (ALT/SGPT) 52, Alkaline Phosphatase 91, Total Creatine Kinase 95, Creatine Kinase MB 1.2, Troponin I < 0.30, B-Type Natriuretic Peptide 22.1, Total Protein 6.7, Albumin 3.3 01/06/17 19:18: Magnesium Level 1.6L 01/06/17 19:30: Blood Gas Puncture Site LT RADIAL, Blood Gas Patient Temperature 100.8, Arterial Blood pH 7.47H, Arterial Blood Partial Pressure CO2 38, Arterial Blood Partial Pressure O2 111H, Arterial Blood HCO3 27, Arterial Blood Total CO2 28.5 , Arterial Blood Oxygen Saturation 99, Arterial Blood Base Excess 4.1H, Don Test YES-POS, Blood Gas Ventilator Setting NO, Blood Gas Inspired Oxygen ROOM AIR 01/06/17 20:13: Urine Opiates Screen POSITIVEH, Urine Oxycodone Screen NEGATIVE, Urine Methadone Screen NEGATIVE, Urine Propoxyphene Screen NEGATIVE, Urine Barbiturates Screen NEGATIVE, Ur Tricyclic Antidepressants Screen NEGATIVE, Urine Phencyclidine Screen NEGATIVE, Urine Amphetamines Screen NEGATIVE, Urine Methamphetamines Screen NEGATIVE, Urine Benzodiazepines Screen POSITIVEH, Urine Cocaine Screen NEGATIVE, Urine Cannabinoids Screen NEGATIVE 01/07/17 03:52: White Blood Count 8.0, Red Blood Count 4.51, Hemoglobin 13.2, Hematocrit 41, Mean Corpuscular Volume 91, Mean Corpuscular Hemoglobin 29, Mean Corpuscular Hemoglobin Concent 32, Red Cell Distribution Width 14.9H, Platelet Count 256, Mean Platelet Volume 10.9H, Neutrophils (%) (Auto) 85H, Lymphocytes (%) (Auto) 13, Monocytes (%) (Auto) 2, Eosinophils (%) (Auto) 0, Basophils (%) (Auto) 1, Neutrophils # (Auto) 6.8, Lymphocytes # (Auto) 1.0, Monocytes # (Auto) 0.1, Eosinophils # (Auto) 0.0, Basophils # (Auto) 0.1, Sodium Level 140, Potassium Level 4.4, Chloride Level 103, Carbon Dioxide Level 25, Anion Gap 12, Blood Urea Nitrogen 9, Creatinine 0.79, Estimat Glomerular Filtration Rate > 60, BUN/ Creatinine Ratio 11, Glucose Level 258H, Calcium Level 9.4, Total Bilirubin 0.2 , Aspartate Amino Transf (AST/SGOT) 29, Alanine Aminotransferase (ALT/SGPT) 49, Alkaline Phosphatase 98, Total Protein 7.0, Albumin 3.4 01/07/17 10:18: Urine Color YELLOW, Urine Clarity CLEAR, Urine pH 6, Urine Specific Coulter 1.020, Urine Protein 2+H, Urine Glucose (UA) 2+H, Urine Ketones NEGATIVE, Urine Nitrite NEGATIVE, Urine Bilirubin NEGATIVE, Urine Urobilinogen NORMAL, Urine Leukocyte Esterase NEGATIVE, Urine RBC (Auto) NEGATIVE, Urine RBC NONE, Urine WBC NONE, Urine Squamous Epithelial Cells 5-10, Urine Crystals NONE, Urine Bacteria TRACE, Urine Casts PRESENT, Urine Granular Casts RARE, Urine Mucus NEGATIVE, Urine Culture Indicated NO 01/07/17 11:07: Glucometer 205H 01/07/17 14:35: Lactic Acid Level 3.46*H 01/07/17 16:02: Glucometer 177H 01/07/17 19:03: Lactic Acid Level 3.05*H 01/07/17 20:44: Lactic Acid Level 2.76*H 01/07/17 21:39: Glucometer 177H 01/07/17 22:50: Lactic Acid Level 1.74 01/08/17 05:19: Glucometer 126H 01/08/17 08:15: White Blood Count 13.9H, Red Blood Count 4.46, Hemoglobin 13.0, Hematocrit 41, Mean Corpuscular Volume 91, Mean Corpuscular Hemoglobin 29, Mean Corpuscular Hemoglobin Concent 32, Red Cell Distribution Width 15.0H, Platelet Count 306, Mean Platelet Volume 10.5H, Neutrophils (%) (Auto) 79H, Lymphocytes (%) (Auto) 16, Monocytes (%) (Auto) 5, Eosinophils (%) (Auto) 0, Basophils (%) (Auto) 0, Neutrophils # (Auto) 11.0H, Lymphocytes # (Auto) 2.2, Monocytes # (Auto) 0.7, Eosinophils # (Auto) 0.0, Basophils # (Auto) 0.0, Neutrophils % (Manual) 61, Lymphocytes % (Manual) 16, Monocytes % (Manual) 2, Eosinophils % (Manual) 0, Basophils % (Manual) 0, Band Neutrophils 20, Reactive Lymphocytes 1, Anisocytosis SLIGHT, Sodium Level 140, Potassium Level 3.7, Chloride Level 105, Carbon Dioxide Level 27, Anion Gap 8, Blood Urea Nitrogen 9, Creatinine 0.62, Estimat Glomerular Filtration Rate > 60, BUN/Creatinine Ratio 15, Glucose Level 115H, Calcium Level 8.8, Magnesium Level 1.8, Total Bilirubin 0.2, Aspartate Amino Transf (AST/SGOT) 26, Alanine Aminotransferase (ALT/SGPT) 37, Alkaline Phosphatase 89, Total Protein 6.8, Albumin 3.3, Vancomycin Level Trough 13.8 01/08/17 11:00: Glucometer 159H 01/08/17 15:43: Glucometer 109 01/08/17 20:47: Glucometer 110 01/09/17 05:13: Glucometer 87 01/09/17 05:38: White Blood Count 10.0, Red Blood Count 4.68, Hemoglobin 13.9, Hematocrit 43, Mean Corpuscular Volume 91, Mean Corpuscular Hemoglobin 30, Mean Corpuscular Hemoglobin Concent 33, Red Cell Distribution Width 15.1H, Platelet Count 292, Mean Platelet Volume 10.2, Neutrophils (%) (Auto) 66, Lymphocytes (%) (Auto) 27 , Monocytes (%) (Auto) 6, Eosinophils (%) (Auto) 0, Basophils (%) (Auto) 0, Neutrophils # (Auto) 6.6, Lymphocytes # (Auto) 2.7, Monocytes # (Auto) 0.6, Eosinophils # (Auto) 0.0, Basophils # (Auto) 0.0, Sodium Level 141, Potassium Level 3.8, Chloride Level 105, Carbon Dioxide Level 24, Anion Gap 12, Blood Urea Nitrogen 12, Creatinine 0.68, Estimat Glomerular Filtration Rate > 60, BUN/ Creatinine Ratio 18, Glucose Level 82, Calcium Level 8.5 01/09/17 10:52: Glucometer 80 01/09/17 15:52: Glucometer 182H 01/09/17 21:36: Glucometer 257H 01/10/17 04:40: White Blood Count 11.8H, Red Blood Count 4.76, Hemoglobin 14.0, Hematocrit 43, Mean Corpuscular Volume 90, Mean Corpuscular Hemoglobin 29, Mean Corpuscular Hemoglobin Concent 33, Red Cell Distribution Width 14.4, Platelet Count 298, Mean Platelet Volume 10.2, Neutrophils (%) (Auto) 83H, Lymphocytes (%) (Auto) 13 , Monocytes (%) (Auto) 3, Eosinophils (%) (Auto) 0, Basophils (%) (Auto) 1, Neutrophils # (Auto) 9.7H, Lymphocytes # (Auto) 1.6, Monocytes # (Auto) 0.4, Eosinophils # (Auto) 0.0, Basophils # (Auto) 0.1, Sodium Level 135, Potassium Level 4.7, Chloride Level 102, Carbon Dioxide Level 22, Anion Gap 11, Blood Urea Nitrogen 11, Creatinine 0.61, Estimat Glomerular Filtration Rate > 60, BUN/ Creatinine Ratio 18, Glucose Level 152H, Calcium Level 9.4 01/10/17 11:04: Glucometer 218H 01/10/17 15:56: Glucometer 132H 01/10/17 21:01: Glucometer 178H 01/11/17 05:39: Glucometer 160H 01/11/17 05:51: White Blood Count 17.4H, Red Blood Count 4.76, Hemoglobin 13.9, Hematocrit 43, Mean Corpuscular Volume 90, Mean Corpuscular Hemoglobin 29, Mean Corpuscular Hemoglobin Concent 33, Red Cell Distribution Width 14.8H, Platelet Count 338, Mean Platelet Volume 9.8, Sodium Level 136, Potassium Level 4.6, Chloride Level 102, Carbon Dioxide Level 23, Anion Gap 11, Blood Urea Nitrogen 15, Creatinine 0.66, Estimat Glomerular Filtration Rate > 60, BUN/Creatinine Ratio 23, Glucose Level 155H, Calcium Level 9.6 01/11/17 10:52: Glucometer 197H Microbiology 01/07/17 Blood Culture - Final, Complete No growth Laboratory Tests 01/06/17 18:46 01/07/17 03:52 01/08/17 08:15 01/09/17 05:38 01/10/17 04:40 01/11/17 05:51 Pending Labs Microbiology Date/Time Source Procedure Growth Status 01/07/17 13:38 Peripheral Rt Hand Blood Culture - Final No growth Complete 01/07/17 13:20 Peripheral Rt Ac Blood Culture - Final No growth Complete 01/06/17 19:02 Peripheral Rt Ac Blood Culture - Final No growth Complete 01/06/17 18:46 Peripheral Lt Ac Blood Culture - Final No growth Complete Laboratory Tests 01/06/17 18:46: White Blood Count 7.3, Red Blood Count 4.39, Hemoglobin 12.9, Hematocrit 40, Mean Corpuscular Volume 91, Mean Corpuscular Hemoglobin 29, Mean Corpuscular Hemoglobin Concent 32, Red Cell Distribution Width 14.8, Platelet Count 220, Mean Platelet Volume 11.0, Neutrophils (%) (Auto) 76, Lymphocytes (%) (Auto) 16 , Monocytes (%) (Auto) 6, Eosinophils (%) (Auto) 1, Basophils (%) (Auto) 2, Neutrophils # (Auto) 5.6, Lymphocytes # (Auto) 1.2, Monocytes # (Auto) 0.4, Eosinophils # (Auto) 0.0, Basophils # (Auto) 0.1, Prothrombin Time 14.1, INR Comment 1.1, Activated Partial Thromboplast Time 39, Sodium Level 141, Potassium Level 3.7, Chloride Level 103, Carbon Dioxide Level 27, Anion Gap 11, Blood Urea Nitrogen 9, Creatinine 0.72, Estimat Glomerular Filtration Rate > 60 , BUN/Creatinine Ratio 13, Glucose Level 116, Lactic Acid Level 1.27, Calcium Level 8.9, Total Bilirubin 0.2, Aspartate Amino Transf (AST/SGOT) 27, Alanine Aminotransferase (ALT/SGPT) 52, Alkaline Phosphatase 91, Total Creatine Kinase 95, Creatine Kinase MB 1.2, Troponin I < 0.30, B-Type Natriuretic Peptide 22.1, Total Protein 6.7, Albumin 3.3 01/06/17 19:18: Magnesium Level 1.6 01/06/17 19:30: Blood Gas Puncture Site LT RADIAL, Blood Gas Patient Temperature 100.8, Arterial Blood pH 7.47, Arterial Blood Partial Pressure CO2 38, Arterial Blood Partial Pressure O2 111, Arterial Blood HCO3 27, Arterial Blood Total CO2 28.5, Arterial Blood Oxygen Saturation 99, Arterial Blood Base Excess 4.1, Don Test YES-POS, Blood Gas Ventilator Setting NO, Blood Gas Inspired Oxygen ROOM AIR 01/06/17 20:13: Urine Opiates Screen POSITIVE, Urine Oxycodone Screen NEGATIVE, Urine Methadone Screen NEGATIVE, Urine Propoxyphene Screen NEGATIVE, Urine Barbiturates Screen NEGATIVE, Ur Tricyclic Antidepressants Screen NEGATIVE, Urine Phencyclidine Screen NEGATIVE, Urine Amphetamines Screen NEGATIVE, Urine Methamphetamines Screen NEGATIVE, Urine Benzodiazepines Screen POSITIVE, Urine Cocaine Screen NEGATIVE, Urine Cannabinoids Screen NEGATIVE 01/07/17 03:52: White Blood Count 8.0, Red Blood Count 4.51, Hemoglobin 13.2, Hematocrit 41, Mean Corpuscular Volume 91, Mean Corpuscular Hemoglobin 29, Mean Corpuscular Hemoglobin Concent 32, Red Cell Distribution Width 14.9, Platelet Count 256, Mean Platelet Volume 10.9, Neutrophils (%) (Auto) 85, Lymphocytes (%) (Auto) 13 , Monocytes (%) (Auto) 2, Eosinophils (%) (Auto) 0, Basophils (%) (Auto) 1, Neutrophils # (Auto) 6.8, Lymphocytes # (Auto) 1.0, Monocytes # (Auto) 0.1, Eosinophils # (Auto) 0.0, Basophils # (Auto) 0.1, Sodium Level 140, Potassium Level 4.4, Chloride Level 103, Carbon Dioxide Level 25, Anion Gap 12, Blood Urea Nitrogen 9, Creatinine 0.79, Estimat Glomerular Filtration Rate > 60, BUN/ Creatinine Ratio 11, Glucose Level 258, Calcium Level 9.4, Total Bilirubin 0.2, Aspartate Amino Transf (AST/SGOT) 29, Alanine Aminotransferase (ALT/SGPT) 49, Alkaline Phosphatase 98, Total Protein 7.0, Albumin 3.4 01/07/17 10:18: Urine Color YELLOW, Urine Clarity CLEAR, Urine pH 6, Urine Specific Coulter 1.020, Urine Protein 2+, Urine Glucose (UA) 2+, Urine Ketones NEGATIVE, Urine Nitrite NEGATIVE, Urine Bilirubin NEGATIVE, Urine Urobilinogen NORMAL, Urine Leukocyte Esterase NEGATIVE, Urine RBC (Auto) NEGATIVE, Urine RBC NONE, Urine WBC NONE, Urine Squamous Epithelial Cells 5-10, Urine Crystals NONE, Urine Bacteria TRACE, Urine Casts PRESENT, Urine Granular Casts RARE, Urine Mucus NEGATIVE, Urine Culture Indicated NO 01/07/17 11:07: Glucometer 205 01/07/17 14:35: Lactic Acid Level 3.46 01/07/17 16:02: Glucometer 177 01/07/17 19:03: Lactic Acid Level 3.05 01/07/17 20:44: Lactic Acid Level 2.76 01/07/17 21:39: Glucometer 177 01/07/17 22:50: Lactic Acid Level 1.74 01/08/17 05:19: Glucometer 126 01/08/17 08:15: White Blood Count 13.9, Red Blood Count 4.46, Hemoglobin 13.0, Hematocrit 41, Mean Corpuscular Volume 91, Mean Corpuscular Hemoglobin 29, Mean Corpuscular Hemoglobin Concent 32, Red Cell Distribution Width 15.0, Platelet Count 306, Mean Platelet Volume 10.5, Neutrophils (%) (Auto) 79, Lymphocytes (%) (Auto) 16 , Monocytes (%) (Auto) 5, Eosinophils (%) (Auto) 0, Basophils (%) (Auto) 0, Neutrophils # (Auto) 11.0, Lymphocytes # (Auto) 2.2, Monocytes # (Auto) 0.7, Eosinophils # (Auto) 0.0, Basophils # (Auto) 0.0, Neutrophils % (Manual) 61, Lymphocytes % (Manual) 16, Monocytes % (Manual) 2, Eosinophils % (Manual) 0, Basophils % (Manual) 0, Band Neutrophils 20, Reactive Lymphocytes 1, Anisocytosis SLIGHT, Sodium Level 140, Potassium Level 3.7, Chloride Level 105, Carbon Dioxide Level 27, Anion Gap 8, Blood Urea Nitrogen 9, Creatinine 0.62, Estimat Glomerular Filtration Rate > 60, BUN/Creatinine Ratio 15, Glucose Level 115, Calcium Level 8.8, Magnesium Level 1.8, Total Bilirubin 0.2, Aspartate Amino Transf (AST/SGOT) 26, Alanine Aminotransferase (ALT/SGPT) 37, Alkaline Phosphatase 89, Total Protein 6.8, Albumin 3.3, Vancomycin Level Trough 13.8 01/08/17 11:00: Glucometer 159 01/08/17 15:43: Glucometer 109 01/08/17 20:47: Glucometer 110 01/09/17 05:13: Glucometer 87 01/09/17 05:38: White Blood Count 10.0, Red Blood Count 4.68, Hemoglobin 13.9, Hematocrit 43, Mean Corpuscular Volume 91, Mean Corpuscular Hemoglobin 30, Mean Corpuscular Hemoglobin Concent 33, Red Cell Distribution Width 15.1, Platelet Count 292, Mean Platelet Volume 10.2, Neutrophils (%) (Auto) 66, Lymphocytes (%) (Auto) 27 , Monocytes (%) (Auto) 6, Eosinophils (%) (Auto) 0, Basophils (%) (Auto) 0, Neutrophils # (Auto) 6.6, Lymphocytes # (Auto) 2.7, Monocytes # (Auto) 0.6, Eosinophils # (Auto) 0.0, Basophils # (Auto) 0.0, Sodium Level 141, Potassium Level 3.8, Chloride Level 105, Carbon Dioxide Level 24, Anion Gap 12, Blood Urea Nitrogen 12, Creatinine 0.68, Estimat Glomerular Filtration Rate > 60, BUN/ Creatinine Ratio 18, Glucose Level 82, Calcium Level 8.5 01/09/17 10:52: Glucometer 80 01/09/17 15:52: Glucometer 182 01/09/17 21:36: Glucometer 257 01/10/17 04:40: White Blood Count 11.8, Red Blood Count 4.76, Hemoglobin 14.0, Hematocrit 43, Mean Corpuscular Volume 90, Mean Corpuscular Hemoglobin 29, Mean Corpuscular Hemoglobin Concent 33, Red Cell Distribution Width 14.4, Platelet Count 298, Mean Platelet Volume 10.2, Neutrophils (%) (Auto) 83, Lymphocytes (%) (Auto) 13 , Monocytes (%) (Auto) 3, Eosinophils (%) (Auto) 0, Basophils (%) (Auto) 1, Neutrophils # (Auto) 9.7, Lymphocytes # (Auto) 1.6, Monocytes # (Auto) 0.4, Eosinophils # (Auto) 0.0, Basophils # (Auto) 0.1, Sodium Level 135, Potassium Level 4.7, Chloride Level 102, Carbon Dioxide Level 22, Anion Gap 11, Blood Urea Nitrogen 11, Creatinine 0.61, Estimat Glomerular Filtration Rate > 60, BUN/ Creatinine Ratio 18, Glucose Level 152, Calcium Level 9.4 01/10/17 11:04: Glucometer 218 01/10/17 15:56: Glucometer 132 01/10/17 21:01: Glucometer 178 01/11/17 05:39: Glucometer 160 01/11/17 05:51: White Blood Count 17.4, Red Blood Count 4.76, Hemoglobin 13.9, Hematocrit 43, Mean Corpuscular Volume 90, Mean Corpuscular Hemoglobin 29, Mean Corpuscular Hemoglobin Concent 33, Red Cell Distribution Width 14.8, Platelet Count 338, Mean Platelet Volume 9.8, Sodium Level 136, Potassium Level 4.6, Chloride Level 102, Carbon Dioxide Level 23, Anion Gap 11, Blood Urea Nitrogen 15, Creatinine 0.66, Estimat Glomerular Filtration Rate > 60, BUN/Creatinine Ratio 23, Glucose Level 155, Calcium Level 9.6 01/11/17 10:52: Glucometer 197 Radiology Reviewed chest x-ray on admission stable. CAT scan CTA no pulmonary embolism. Bilateral centrilobular nodules and ground glass opacified infection or inflammation. Lung scan V/Q scan normal perfusion study. Chest x-ray 01/11 no acute study Discussion & Recommendations patient in hospital improved Discharge Home Medications: Active Scripts Active Prednisone 10 Mg Tab 10 Mg PO UD 29 Days taper dose day #1 given at hospital 60mg this mornig - 01/11/17 day #2 start 50mg day #3 take 50mg day #4 take 40mg day #5 take 40mg day #6 take 30mg day #7 take 30mg day #8 take 20mg day #9 take 20mg day #10 take 10mg Cefdinir 300 Mg Capsule 300 Mg PO BID 5 Days Lisinopril 20 Mg Tablet 20 Mg PO DAILY@0900 30 Days Reported Promethazine-Codeine Syrup (Promethazine HCl/Codeine) 118 Ml Syrup 10 Ml PO TID PRN Ventolin Hfa (Albuterol Sulfate) 18 Gm Hfa.aer.ad 2 Puff IH Q4H PRN Micro-Guard (Miconazole Nitrate) 85 Gm Powder TP BID Vitamin B-12 (Cyanocobalamin (Vitamin B-12)) 1,000 Mcg Tablet 1,000 Mcg PO DAILY Alprazolam 0.25 Mg Tablet 0.5 Mg PO TID PRN TAKES 2 (0.25 MG) TABLETS Bupropion HCl 75 Mg Tablet 75 Mg PO BID Tramadol HCl 50 Mg Tablet 50 Mg PO BID PRN Gabapentin 600 Mg Tablet 600 Mg PO TID Diphenhydramine HCl 25 Mg Tablet 75-87.5 Mg PO HS PRN TAKES 3-3 & 1/2 (25 MG) TABLETS Instructions to patient/family Please see electonic discharge instructions given to patient. Clinical Quality Measures DVT/VTE Risk/Contraindication: Risk Factor Score Per Nursin RFS Level Per Nursing on Admit: 2=Moderate HARVEY LINDSEY DO January 14, 2017 17:29
== END 2017-01-11 16:24 | disposition home or self-care (01) | DRG 871 ==
LOC: EDUNIT# 18:13 → ER 18:14 → ICU 20:30 → 4TH 01-07 14:28
PROVIDERS: ADMIT Family Medicine; ATTEND Family Medicine
DX: A41.9 Sepsis, unspecified organism (principal); J44.0 Chronic obstructive pulmonary disease with (acute) lower respiratory infection; J18.9 Pneumonia, unspecified organism; J44.1 Chronic obstructive pulmonary disease with (acute) exacerbation; J98.11 Atelectasis; I10 Essential (primary) hypertension; G40.909 Epilepsy, unspecified, not intractable, without status epilepticus; E66.01 Morbid (severe) obesity due to excess calories; Z68.43 Body mass index [BMI] 50.0-59.9, adult; Z87.891 Personal history of nicotine dependence; Z86.711 Personal history of pulmonary embolism
CPT/HCPCS: 36415; 71010; 71020; 71275; 78582; 80048; 80053; 80202; 80306; 81000; 82550; 82553; 82805; 82962; 83605; 83735; 83880; 84484; 85007; 85025; 85027; 85610; 85730; 87040; 93005; 93041; 94640; 94664; 94760; 96374; 96375

== ENCOUNTER 2017-03-14 08:40 | Emergency (ER) | payer MEDICAID ==
[~2017-03-14] VITALS: Ht 162.6 cm; Wt 136.1 kg
[~2017-03-14 08:40] MED LIST changes: +ALBU18HF2 IH; +CODE118S2 PO; +LEVO500T80 PO; +LISI-552 PO; +MICO85PO2 TP; +PRD10T PO
--- NOTE | 2017-03-14 09:27 | ED Upper Extremity ---
General Chief Complaint: Upper Extremity Stated Complaint: RIGHT SHOULDER PAIN Nursing Triage Note: c/o right shoulder pain. Pain has been chronic for months but worse the last month. States her right wrist was painful this morning as well. Denies recent trauma to shoulder. Nursing Sepsis Screen: No Definite Risk Allergies and Home Medications Allergies Coded Allergies: No Known Drug Allergies (Unverified , 01/01/17) Home Medications Albuterol Sulfate 18 Gm Hfa.aer.ad, 2 PUFF IH Q4H PRN for SHORTNESS OF BREATH, ( Reported) Alprazolam 0.25 Mg Tablet, 0.5 MG PO TID PRN for ANXIETY, (Reported) TAKES 2 (0.25 MG) TABLETS Bupropion HCl 75 Mg Tablet, 75 MG PO BID, (Reported) Cefdinir 300 Mg Capsule, 300 MG PO BID for 5 Days, #10 Prescribed by: WILFREDO COOPER on 01/11/17 1128 Cyanocobalamin (Vitamin B-12) 1,000 Mcg Tablet, 1,000 MCG PO DAILY, (Reported) Diphenhydramine HCl 25 Mg Tablet, 75-87.5 MG PO HS PRN for SLEEP, (Reported) TAKES 3-3 & 1/2 (25 MG) TABLETS Gabapentin 600 Mg Tablet, 600 MG PO TID, (Reported) Lisinopril 20 Mg Tablet, 20 MG PO DAILY@0900 for 30 Days, #30 Prescribed by: WILFREDO COOPER on 01/11/17 1128 Miconazole Nitrate 85 Gm Powder, TP BID, (Reported) Prednisone 10 Mg Tab, 10 MG PO UD for 29 Days, #29 taper dose day #1 given at hospital 60mg isabel brianlaina - 01/11/17 day #2 start 50mg day #3 take 50mg day #4 take 40mg day #5 take 40mg day #6 take 30mg day #7 take 30mg day #8 take 20mg day #9 take 20mg day #10 take 10mg Prescribed by: WILFREDO COOPER on 01/11/17 1241 Promethazine HCl/Codeine 118 Ml Syrup, 10 ML PO TID PRN for COUGH, (Reported) Tramadol HCl 50 Mg Tablet, 50 MG PO BID PRN for PAIN-MODERATE, (Reported) Past Rewqcfn-Tvnyqn-Abxwiv Hx Patient Social History Alcohol Use: Denies Use Recreational Drug Use: Yes Drug of Choice: PAST meth, thc Smoking Status: Former Smoker Type Used: Cigarettes 2nd Hand Smoke Exposure: Yes Recent Foreign Travel: No Contact w/Someone Who Travel: No Recent Infectious Disease Expo: No Recent Hopitalizations: Yes Immunizations Up To Date Tetanus Booster (TDap): Unknown Date of Pneumonia Vaccine: Apr 26, 2015 Date of Influenza Vaccine: Sep 09, 2012 Seasonal Allergies Seasonal Allergies: No Surgeries HX Surgeries: Yes (TRANSPOSTION/MEDIAN NERVE & CARPAL TUNNEL X 3, URETERAL STENT, LITHOTRIPSY) Surgeries: Gallbladder, Hysterectomy, Orthopedic, Renal, Tubal Ligation Respiratory Hx Respiratory Disorders: Yes Respiratory Disorders: Pneumonia, Chronic Bronchitis, Pulmonary Embolism Cardiovascular Hx Cardiac Disorders: Yes Cardiac Disorders: Hypertension Neurological Hx Neurological Disorders: Yes (PSUEDOSEIZURES) Neurological Disorders: Headaches /Migraines, Seizure Disorder 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 System Hx 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 Disorders: No Sexually Transmitted Disease: No HIV/AIDS: No Female 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 Disorders: 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 Genitourinary Hx Genitourinary Disorders: Yes Genitourinary Disorders: Kidney Infection, Kidney Stones Gastrointestinal Hx Gastrointestinal Disorders: No Musculoskeletal Hx Musculoskeletal Disorders: Yes (MOST ARE SELF-REPORTED, WITH [place] MEDICAL DOCUMENTATION OF THESE CONDITIONS) Musculoskeletal Disorders: Degenerate Disk Disease, Arthritis, Fibromyalgia, Back Injury, Scoliosis, Chronic Back Pain Endocrine Hx Endocrine Disorders: Yes (MORBID OBESITY) HEENT HX ENT Disorders: Yes (TMJ PROBLEMS PER PT, EXTENSIVE DENTAL CARIES/MISSING TEETH) Cancer Hx Cancer: No Psychosocial Hx Psychiatric Problems: Yes (MULTIPLE OVERDOSES-INTENTIONAL SUICIDE ATTEMPT , AND SOME NON-SUICIDAL) Behavioral Health Disorders: Pseudo Seizures, Sleep Difficulties, Anxiety, Suicide Attempts, Depression Integumentary HX Skin/Integumentary Disorder: No Blood Transfusions Hx Blood Disorders: No Family Medical History Family Medial History: Alcoholism 19 FATHER (grandfather) Alzheimer's disease 19 MOTHER (grandmother) Arthritis 19 FATHER Cardiovascular disease 19 FATHER 19 MOTHER Cataracts 19 MOTHER Coronary thrombosis 19 FATHER Dementia 19 MOTHER (grandparents) Diabetes mellitus 19 MOTHER Drug abuse 19 FATHER Glaucoma 19 FATHER (grandfather) Headache disorder 19 FATHER Hypercholesterolemia 19 FATHER Hypertension 19 FATHER Myocardial infarction 19 FATHER Parkinson's disease 19 MOTHER Prostate cancer 19 MOTHER (uncle brother of mother) Psychosocial problem 19 FATHER Respiratory disorder 19 FATHER (grandfather) Seizure disorder 19 MOTHER No Family History of: AIDS Abdominal aortic aneurysm [place]'s disease Aphasia Asthma Cancer of mouth Colon cancer Completed stroke Congenital disease Congenital heart disease Cystic fibrosis Deafness or hearing loss Dysphasia Fibrocystic disease of breast Gastroenteritis Infertility Kidney disease Neoplasm Severe allergy Thyroid disease Tuberculosis Visual disorder Physical Exam Vital Signs Vital Sign - Last 12Hours 03/14/17 09:04 Temp 97.5 Pulse 70 Resp 16 B/P (MAP) 250/149 O2 Delivery Room Air Capillary Refill : Less Than 3 Seconds Laceration Repair : Suture Size: 4-0 Progress/Results/Core Measures Results/Orders My Orders Orders - TEODORA ROCA DO Ketorolac Injection (Toradol Injection) (03/14/17 09:30) Orphenadrine Injection (Norflex Injectio (03/14/17 09:30) Sling (03/14/17 09:20) Vital Signs/I&O Vital Sign - Last 12Hours 03/14/17 09:04 Temp 97.5 Pulse 70 Resp 16 B/P (MAP) 250/149 O2 Delivery Room Air Blood Pressure Mean: 182 Departure Impression Impression: Primary Impression: Chronic right shoulder pain Additional Impression: Chronic pain of right wrist Disposition: 01 HOME, SELF-CARE Condition: Stable Departure-Patient Inst. Referrals: HARVEY LINDSEY DO (PCP/Family) Primary Care Physician GLO GARCIA MD Patient Instructions: How to Use a Shoulder Sling, MANAGING YOUR CHRONIC PAIN Add. Discharge Instructions: TAKE YOUR REGULAR MEDICATIONS PRESCRIBED, INCLUDING YOUR BLOOD PRESSURE MEDICATION WEAR SLING AT ALL TIMES WIGGLE FINGERS FREQUENTLY ALTERNATE ICE AND HEAT TO SORE AREAS AT 20 MINUTE INTERVALS KEEP YOUR APPOINTMENT WITH DR. PINZON SCHEDULED FOLLOW UP WITH DR. GARCIA OR ORTHOPEDIC SURGEON OF CHOICE NEXT WEEK FOR FURTHER CARE All discharge instructions reviewed with patient and/or family. Voiced understanding. TEODORA ROCA DO Mar 14, 2017 09:27
[2017-03-14] MEDS ORDERED: KETOROLAC 60 MG/2 ML VIAL IM ONE (09:30)
[2017-03-14] MEDS ORDERED: ORPHENADRINE 60 MG/2 ML (NORFLEX) AMP IM ONE (09:30)
[2017-03-14 10:03] VITALS: BP 228/86
== END 2017-03-14 10:03 | disposition home or self-care (01) ==
LOC: EDUNIT# 08:40 → ER 08:42
DX: G89.29 Other chronic pain (principal); M25.511 Pain in right shoulder; M25.531 Pain in right wrist; G47.9 Sleep disorder, unspecified; F32.9 Major depressive disorder, single episode, unspecified; F41.9 Anxiety disorder, unspecified; E66.01 Morbid (severe) obesity due to excess calories; M47.9 Spondylosis, unspecified; I10 Essential (primary) hypertension; J42 Unspecified chronic bronchitis; Z90.710 Acquired absence of both cervix and uterus; Z98.51 Tubal ligation status; Z96.0 Presence of urogenital implants; Z87.891 Personal history of nicotine dependence; Z86.711 Personal history of pulmonary embolism; Z87.442 Personal history of urinary calculi; Z87.39 Personal history of other diseases of the musculoskeletal system and connective tissue; Z91.5 Personal history of self-harm; Z68.43 Body mass index [BMI] 50.0-59.9, adult
CPT/HCPCS: 96372; 99284

== ENCOUNTER 2017-03-21 14:40 | Emergency (ER) | payer MEDICAID ==
[~2017-03-21] VITALS: Ht 152.4 cm; Wt 113.4 kg
[2017-03-21] MEDS ORDERED: NS IV 1000 ML 1,000 ML IV SCH (15:00)
[2017-03-21] MEDS ORDERED: ONDANSETRON 4 MG/2 ML (SDV) Z0FRAN IVP ONE (15:00)
--- NOTE | 2017-03-21 15:13 | ED Abdominal Pain ---
General Chief Complaint: Abdominal/GI Problems Stated Complaint: NAUSEA,VOMITTING Nursing Triage Note: PT REPORTS EPIGASTRIC ABD PAIN X 1 HOUR. SHE ALSO C/O N/V. SHE STATES HX OF PANCREATITIS. Sepsis Screen: No Definite Risk Source of Information: Patient Exam Limitations: No Limitations History of Present Illness Time Seen By Provider: 15:11 Initial Comments To ER with epigastric abdominal pain that began suddenly 1 hour ago and was associated with vomiting. She states it radiates through to her back and gently history of pancreatitis and this feels similar. Timing/Duration: 1-2 Days Severity/Quality: Moderate Radiation: No Radiation Activities at Onset: None Associated Symptoms: Nausea/Vomiting Allergies and Home Medications Allergies Coded Allergies: No Known Drug Allergies (Unverified , 01/01/17) Home Medications Albuterol Sulfate 18 Gm Hfa.aer.ad, 2 PUFF IH Q4H PRN for SHORTNESS OF BREATH, ( Reported) Alprazolam 0.25 Mg Tablet, 0.5 MG PO TID PRN for ANXIETY, (Reported) TAKES 2 (0.25 MG) TABLETS Bupropion HCl 75 Mg Tablet, 75 MG PO BID, (Reported) Cefdinir 300 Mg Capsule, 300 MG PO BID for 5 Days, #10 Prescribed by: WILFREDO COOPER on 01/11/17 1128 Cyanocobalamin (Vitamin B-12) 1,000 Mcg Tablet, 1,000 MCG PO DAILY, (Reported) Diphenhydramine HCl 25 Mg Tablet, 75-87.5 MG PO HS PRN for SLEEP, (Reported) TAKES 3-3 & 1/2 (25 MG) TABLETS Gabapentin 600 Mg Tablet, 600 MG PO TID, (Reported) Lisinopril 20 Mg Tablet, 20 MG PO DAILY@0900 for 30 Days, #30 Prescribed by: WILFREDO COOPER on 01/11/17 1128 Miconazole Nitrate 85 Gm Powder, TP BID, (Reported) Prednisone 10 Mg Tab, 10 MG PO UD for 29 Days, #29 taper dose day #1 given at hospital 60mg isabel blancot[place] - 01/11/17 day #2 start 50mg day #3 take 50mg day #4 take 40mg day #5 take 40mg day #6 take 30mg day #7 take 30mg day #8 take 20mg day #9 take 20mg day #10 take 10mg Prescribed by: WILFREDO COOPER on 01/11/17 1241 Promethazine HCl/Codeine 118 Ml Syrup, 10 ML PO TID PRN for COUGH, (Reported) Tramadol HCl 50 Mg Tablet, 50 MG PO BID PRN for PAIN-MODERATE, (Reported) Review of Systems Constitutional: see HPI EENTM: No Symptoms Reported Respiratory: No Symptoms Reported Cardiovascular: No Symptoms Reported Gastrointestinal: See HPI, Abdominal Pain, Denies Constipated, Denies Diarrhea , Nausea Genitourinary: No Symptoms Reported Musculoskeletal: no symptoms reported Skin: no symptoms reported Psychiatric/Neurological: No Symptoms Reported Endocrine: No Symptoms Reported Past Vnkcxro-Buomlk-Amnrzm Hx Patient Social History Alcohol Use: Past History Recreational Drug Use: Yes Drug of Choice: PAST meth, thc Smoking Status: Current Everyday Smoker Type Used: Cigarettes 2nd Hand Smoke Exposure: Yes Recent Foreign Travel: No Contact w/Someone Who Travel: No Recent Infectious Disease Expo: No Recent Hopitalizations: No Immunizations Up To Date Tetanus Booster (TDap): Unknown Date of Pneumonia Vaccine: Apr 26, 2015 Date of Influenza Vaccine: Sep 09, 2012 Seasonal Allergies Seasonal Allergies: No Surgeries HX Surgeries: Yes (TRANSPOSTION/MEDIAN NERVE & CARPAL TUNNEL X 3, URETERAL STENT, LITHOTRIPSY) Surgeries: Gallbladder, Hysterectomy, Orthopedic, Renal, Tubal Ligation Respiratory Hx Respiratory Disorders: Yes Respiratory Disorders: Pneumonia, Chronic Bronchitis, Pulmonary Embolism Cardiovascular Hx Cardiac Disorders: Yes Cardiac Disorders: Hypertension Neurological Hx Neurological Disorders: Yes (PSUEDOSEIZURES) Neurological Disorders: Headaches /Migraines, Seizure Disorder 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 System Hx 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 Disorders: No Sexually Transmitted Disease: No HIV/AIDS: No Female 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 Genitourinary Hx Genitourinary Disorders: Yes Genitourinary Disorders: Kidney Infection, Kidney Stones, UTI-Chronic Gastrointestinal Hx Gastrointestinal Disorders: No Musculoskeletal Hx Musculoskeletal Disorders: Yes (MOST ARE SELF-REPORTED, WITH [place] MEDICAL DOCUMENTATION OF THESE CONDITIONS) Musculoskeletal Disorders: Degenerate Disk Disease, Arthritis, Fibromyalgia, Back Injury, Scoliosis, Chronic Back Pain Endocrine Hx Endocrine Disorders: Yes (MORBID OBESITY) HEENT HX ENT Disorders: Yes (TMJ PROBLEMS PER PT, EXTENSIVE DENTAL CARIES/MISSING TEETH) Cancer Hx Cancer: No Psychosocial Hx Psychiatric Problems: Yes (MULTIPLE OVERDOSES-INTENTIONAL SUICIDE ATTEMPT , AND SOME NON-SUICIDAL) Behavioral Health Disorders: Pseudo Seizures, Sleep Difficulties, Anxiety, Suicide Attempts, Depression Integumentary HX Skin/Integumentary Disorder: No Blood Transfusions Hx Blood Disorders: No Family Medical History Family Medial History: Alcoholism 19 FATHER (grandfather) Alzheimer's disease 19 MOTHER (grandmother) Arthritis 19 FATHER Cardiovascular disease 19 FATHER 19 MOTHER Cataracts 19 MOTHER Coronary thrombosis 19 FATHER Dementia 19 MOTHER (grandparents) Diabetes mellitus 19 MOTHER Drug abuse 19 FATHER Glaucoma 19 FATHER (grandfather) Headache disorder 19 FATHER Hypercholesterolemia 19 FATHER Hypertension 19 FATHER Myocardial infarction 19 FATHER Parkinson's disease 19 MOTHER Prostate cancer 19 MOTHER (uncle brother of mother) Psychosocial problem 19 FATHER Respiratory disorder 19 FATHER (grandfather) Seizure disorder 19 MOTHER No Family History of: AIDS Abdominal aortic aneurysm [place]'s disease Aphasia Asthma Cancer of mouth Colon cancer Completed stroke Congenital disease Congenital heart disease Cystic fibrosis Deafness or hearing loss Dysphasia Fibrocystic disease of breast Gastroenteritis Infertility Kidney disease Neoplasm Severe allergy Thyroid disease Tuberculosis Visual disorder Physical Exam Vital Signs VS - Last 72 Hours, by Label 03/21/17 14:54 Temp 98.5 Pulse 96 Resp 20 B/P (MAP) 146/108 Pulse Ox 97 O2 Delivery Room Air Capillary Refill : Less Than 3 Seconds General Appearance: WD/WN, no apparent distress HEENT: PERRL/EOMI, normal ENT inspection Neck: non-tender, full range of motion Respiratory: no respiratory distress, no accessory muscle use Cardiovascular: regular rate, rhythm, no murmur Gastrointestinal: normal bowel sounds, soft, tenderness Extremities: normal range of motion, non-tender Neurologic/Psychiatric: alert, normal mood/affect, oriented x 3 Skin: normal color Laceration Repair : Suture Size: 4-0 Progress/Results/Core Measures Results/Orders Lab Results Laboratory Tests Test 03/21/17 15:22 03/21/17 17:00 Range/Units White Blood Count 15.0 H 4.3-11.0 10^3/uL Red Blood Count 5.33 4.35-5.85 10^6/uL Hemoglobin 15.9 11.5-16.0 G/DL Hematocrit 48 35-52 % Mean Corpuscular Volume 90 80-99 FL Mean Corpuscular Hemoglobin 30 25-34 PG Mean Corpuscular Hemoglobin Concent 33 32-36 G/DL Red Cell Distribution Width 13.8 10.0-14.5 % Platelet Count 370 130-400 10^3/uL Mean Platelet Volume 10.5 H 7.4-10.4 FL Neutrophils (%) (Auto) 71 42-75 % Lymphocytes (%) (Auto) 22 12-44 % Monocytes (%) (Auto) 6 0-12 % Eosinophils (%) (Auto) 1 0-10 % Basophils (%) (Auto) 0 0-10 % Neutrophils # (Auto) 10.6 H 1.8-7.8 X 10^3 Lymphocytes # (Auto) 3.2 1.0-4.0 X 10^3 Monocytes # (Auto) 0.9 0.0-1.0 X 10^3 Eosinophils # (Auto) 0.1 0.0-0.3 10^3/uL Basophils # (Auto) 0.0 0.0-0.1 10^3/uL Neutrophils % (Manual) 69 % Lymphocytes % (Manual) 25 % Monocytes % (Manual) 5 % Eosinophils % (Manual) 0 % Basophils % (Manual) 0 % Band Neutrophils 1 % Blood Morphology Comment NORMAL Sodium Level 142 135-145 MMOL/L Potassium Level 3.5 L 3.6-5.0 MMOL/L Chloride Level 107 98-107 MMOL/L Carbon Dioxide Level 19 L 21-32 MMOL/L Anion Gap 16 H 5-14 MMOL/L Blood Urea Nitrogen 8 7-18 MG/DL Creatinine 0.73 0.60-1.30 MG/DL Estimat Glomerular Filtration Rate > 60 BUN/Creatinine Ratio 11 Glucose Level 122 H 70-105 MG/DL Calcium Level 10.0 8.5-10.1 MG/DL Total Bilirubin 0.2 0.1-1.0 MG/DL Aspartate Amino Transf (AST/SGOT) 16 5-34 U/L Alanine Aminotransferase (ALT/SGPT) 19 0-55 U/L Alkaline Phosphatase 66 40-136 U/L Total Protein 8.2 6.4-8.2 GM/DL Albumin 4.2 3.2-4.5 GM/DL Amylase Level 45 25-125 U/L Lipase 32 8-78 U/L Urine Color YELLOW Urine Clarity CLEAR Urine pH 6 5-9 Urine Specific [place] 1.015 L 1.016-1.022 Urine Protein 1+ H NEGATIVE Urine Glucose (UA) NEGATIVE NEGATIVE Urine Ketones NEGATIVE NEGATIVE Urine Nitrite NEGATIVE NEGATIVE Urine Bilirubin NEGATIVE NEGATIVE Urine Urobilinogen NORMAL NORMAL MG/DL Urine Leukocyte Esterase NEGATIVE NEGATIVE Urine RBC (Auto) NEGATIVE NEGATIVE Urine RBC RARE /HPF Urine WBC 0-2 /HPF Urine Squamous Epithelial Cells 5-10 /HPF Urine Crystals NONE /LPF Urine Bacteria FEW H /HPF Urine Casts NONE /LPF Urine Mucus SMALL H /LPF Urine Culture Indicated NO My Orders Orders - NUBIA JASON APRN Cbc With Automated Diff (03/21/17 14:59) Comprehensive Metabolic Panel (03/21/17 14:59) Lipase (03/21/17 14:59) Amylase (03/21/17 14:59) Saline Lock/Iv-Start (03/21/17 14:59) Ua Culture If Indicated (03/21/17 14:59) Ns Iv 1000 Ml (Sodium Chloride 0.9%) (03/21/17 15:00) Ondansetron Injection (Zofran Injectio (03/21/17 15:00) Ketorolac Injection (Toradol Injection) (03/21/17 15:15) Manual Differential (03/21/17 15:22) Antacid Suspension (Mylanta Suspension (03/21/17 16:15) Lidocaine 2% Viscous 15 Ml (Xylocaine Vi (03/21/17 16:15) Ct Abdomen/Pelvis W (03/21/17 16:04) Iohexol Injection (Omnipaque 350 Mg/Ml 1 (03/21/17 16:15) Ns (Ivpb) (Sodium Chloride 0.9% Ivpb Bag (03/21/17 16:15) Drug Screen Stat (Urine) (03/21/17 16:25) Medications Given in ED Current Medications Medications Dose Ordered Sig/Garry Route Start Time Stop Time Status Last Admin Dose Admin Al Hydrox/Mg Hydrox/Simethicone 30 ml ONCE ONCE PO 03/21/17 16:15 03/21/17 16:16 DC 03/21/17 16:09 30 ML Iohexol 100 ml ONCE ONCE IV 03/21/17 16:15 03/21/17 16:16 DC 03/21/17 16:23 100 ML Ketorolac Tromethamine 30 mg ONCE ONCE IVP 03/21/17 15:15 03/21/17 15:16 DC 03/21/17 15:29 30 MG Lidocaine HCl 15 ml ONCE ONCE PO 03/21/17 16:15 03/21/17 16:16 DC 03/21/17 16:09 15 ML Ondansetron HCl 8 mg ONCE ONCE IVP 03/21/17 15:00 03/21/17 15:01 DC 03/21/17 15:29 8 MG Sodium Chloride 100 ml ONCE ONCE IV 03/21/17 16:15 03/21/17 16:16 DC 03/21/17 16:23 80 ML Vital Signs/I&O Vital Sign - Last 12Hours 03/21/17 14:54 Temp 98.5 Pulse 96 Resp 20 B/P (MAP) 146/108 Pulse Ox 97 O2 Delivery Room Air Blood Pressure Mean: 121 Departure Impression Impression: Primary Impression: abdominal pain Disposition: HOME, SELF-CARE Condition: Stable Departure-Patient Inst. Decision time for Depature: 17:21 Referrals: HARVEY LINDSEY DO (PCP/Family) Primary Care Physician Patient Instructions: Acute Abdomen (Belly Pain), Adult (DC) Add. Discharge Instructions: 1. See your doctor tomorrow 2. Return to ER for any concerns 3. All discharge instructions reviewed with patient and/or family. Voiced understanding. Scripts Pantoprazole Sodium (Protonix) 40 Mg Tablet. 40 MG PO DAILY, #30 TAB Prov: NUBIA JASON APRN 03/21/17 NUBIA JASON APRN Mar 21, 2017 15:13
[2017-03-21] MEDS ORDERED: KETOROLAC 30 MG/ML VIAL IVP ONE (15:15)
[2017-03-21 15:33] LABS: BASOPHILS % (AUTO) 0 % (0-10); EOSINOPHILS # (AUTO) 0.1 10^3/uL (0.0-0.3); EOSINOPHILS % (AUTO) 1 % (0-10); LYMPHOCYTES # (AUTO) 3.2 X 10^3 (1.0-4.0); LYMPHOCYTES % (AUTO) 22 % (12-44); MEAN CORPUSCULAR HEMOGLOBIN 30 PG (25-34); MEAN CORPUSCULAR HGB CONC 33 G/DL (32-36); MEAN CORPUSCULAR VOLUME 90 FL (80-99); MEAN PLATELET VOLUME 10.5 FL (7.4-10.4); MONOCYTES # (AUTO) 0.9 X 10^3 (0.0-1.0); MONOCYTES % (AUTO) 6 % (0-12); NEUTROPHILS # (AUTO) 10.6 X 10^3 (1.8-7.8); NEUTROPHILS % (AUTO) 71 % (42-75); PLATELET COUNT 370 10^3/uL (130-400); RED BLOOD COUNT 5.33 10^6/uL (4.35-5.85); RED CELL DISTRIBUTION WIDTH 13.8 % (10.0-14.5)
[2017-03-21 15:52] LABS: BAND NEUTROPHILS 1 %; BASOPHILS % (MANUAL) 0 %; EOSINOPHILS % (MANUAL) 0 %; LYMPHOCYTES % (MANUAL) 25 %; NEUTROPHILS % (MANUAL) 69 %
[2017-03-21 15:54] LABS: ALANINE AMINOTRANSFERASE 19 U/L (0-55); ALBUMIN 4.2 GM/DL (3.2-4.5); AMYLASE 45 U/L (25-125); ANION GAP 16 MMOL/L (5-14); ASPARTATE AMINO TRANSFERASE 16 U/L (5-34); BILIRUBIN,TOTAL 0.2 MG/DL (0.1-1.0); BLOOD UREA NITROGEN 8 MG/DL (7-18); BUN/CREATININE RATIO 11; CARBON DIOXIDE 19 MMOL/L (21-32); CHLORIDE 107 MMOL/L (98-107); CREATININE SERUM 0.73 MG/DL (0.60-1.30); GFR ESTIMATED > 60; GLUCOSE 122 MG/DL (70-105); LIPASE 32 U/L (8-78); POTASSIUM 3.5 MMOL/L (3.6-5.0); SODIUM 142 MMOL/L (135-145); TOTAL PROTEIN 8.2 GM/DL (6.4-8.2)
[2017-03-21] MEDS ORDERED: IOHEXOL 350 MG/ML 100 ML (OMNIPAQUE 350) VIAL IV ONE (16:15)
[2017-03-21] MEDS ORDERED: NS 100 ML (IVPB) BAG IV ONE (16:15)
[2017-03-21] MEDS ORDERED: ANTACID SUSP 30 ML UDC (MYLANTA) PO ONE (16:15)
[2017-03-21] MEDS ORDERED: LIDOCAINE 2% VISCOUS 15 ML UDC PO ONE (16:15)
--- NOTE | 2017-03-21 17:04 | Diagnostic Imaging Report ---
PROCEDURE: CT abdomen and pelvis with contrast. TECHNIQUE: Multiple contiguous axial images were obtained through the abdomen and pelvis after administration of intravenous contrast. INDICATION: Abdominal pain. TECHNIQUE: 100 mL of Omnipaque 350 is administered intravenously. FINDINGS: The lung bases appear clear. The liver demonstrates diffuse hepatic steatosis with mild enlargement. Cholecystectomy clips are seen. The spleen is not enlarged. The adrenals and pancreas appear unremarkable. The kidneys have symmetric enhancement and contrast excretion. There is no hydronephrosis. The urinary bladder appears unremarkable. The abdominal aorta is normal in caliber. No para-aortic significantly enlarged lymph node is seen. There are small fat-containing umbilical and supraumbilical ventral hernias. There is the suggestion of prior hysterectomy. There are diverticula seen in the colon with no evidence of diverticulitis. The appendix is normal. The osseous structures appear grossly unremarkable. Radiopaque markers of mesh repair along the pelvic floor are perhaps related to prior surgery for pelvic floor weakness. Correlate clinically. IMPRESSION: 1. Mild diverticulosis. No diverticulitis. 2. Mild hepatomegaly and diffuse fatty infiltration. 3. Tiny fat-containing umbilical and supraumbilical ventral hernias. Dictated by: Dictated on workstation # [id number]
[2017-03-21 17:07] LABS: BILIRUBIN,URINE NEGATIVE (NEGATIVE); KETONES,URINE NEGATIVE (NEGATIVE); LEUKOCYTE ESTERASE ,URINE NEGATIVE (NEGATIVE); NITRITE,URINE NEGATIVE (NEGATIVE); PH,URINE 6 (5-9); PROTEIN,URINE 1+ (NEGATIVE); UROBILINOGEN,URINE NORMAL (NORMAL)
[2017-03-21 17:17] LABS: WBC,URINE 0-2 /HPF
[2017-03-21] MEDS ORDERED: PANT40TA2 PO (17:22)
[2017-03-21 17:26] VITALS: BP 146/108
== END 2017-03-21 17:26 | disposition home or self-care (01) ==
LOC: EDUNIT# 14:40 → ER 14:42
DX: R10.13 Epigastric pain (principal); I10 Essential (primary) hypertension; J42 Unspecified chronic bronchitis; G43.909 Migraine, unspecified, not intractable, without status migrainosus; G40.909 Epilepsy, unspecified, not intractable, without status epilepticus; M47.9 Spondylosis, unspecified; E66.01 Morbid (severe) obesity due to excess calories; F41.9 Anxiety disorder, unspecified; F32.9 Major depressive disorder, single episode, unspecified; G47.9 Sleep disorder, unspecified; F17.210 Nicotine dependence, cigarettes, uncomplicated; Z68.42 Body mass index [BMI] 45.0-49.9, adult; Z87.19 Personal history of other diseases of the digestive system; Z98.890 Other specified postprocedural states; Z86.711 Personal history of pulmonary embolism; Z98.51 Tubal ligation status; Z96.0 Presence of urogenital implants; Z90.710 Acquired absence of both cervix and uterus; Z90.49 Acquired absence of other specified parts of digestive tract; Z91.5 Personal history of self-harm
CPT/HCPCS: 36415; 74177; 80053; 80306; 81000; 82150; 83690; 85007; 85027; 96374; 96375

== ENCOUNTER 2017-04-21 13:27 | Emergency (ER) | payer MEDICAID ==
[~2017-04-21 13:27] MED LIST changes: -BUPIVACAINE 0.5% 30 ML (SENSORCAINE) VIAL INJ ONE; -LIDOCAINE 1% INJ 20 ML (XYLOCAINE) VIAL INJ ONE; -methylPREDNISolone 40 MG/ML (DEPO MEDROL) VIAL IJ ONE
== END 2017-04-21 14:15 | disposition left against medical advice (07) ==
LOC: EDUNIT# 13:27 → ER 13:28
DX: M79.605 Pain in left leg (principal)

== ENCOUNTER → 2017-04-21 | Emergency (ER) | payer MEDICAID ==
[~2017-04-21] VITALS: Ht 152.4 cm; Wt 113.4 kg
[~2017-04-21] MED LIST changes: +BUPIVACAINE 0.5% 30 ML (SENSORCAINE) VIAL INJ ONE; +LIDOCAINE 1% INJ 20 ML (XYLOCAINE) VIAL INJ ONE; +methylPREDNISolone 40 MG/ML (DEPO MEDROL) VIAL IJ ONE
--- NOTE | 2017-04-21 02:06 | ED Lower Extremity ---
General Chief Complaint: General Problems/Pain Stated Complaint: PAIN IN LT LEG Nursing Triage Note: c/o L leg pain for 4 to 5 days Nursing Sepsis Screen: No Definite Risk Source: patient Exam Limitations: no limitations History of Present Illness Time seen by provider: 01:55 Initial Comments Patient presents ER by private conveyance with a chief complaint of bilateral leg pain starting at the mid thigh, down just below the knee. It is left more than right. She is progressively getting worse over the last couple days to tonight she is woke from sleep with it. She has a history of bursitis as well as sciatica. She has a history of using opiates to control her pain but says she is been taken off the opiates by her primary care physician. She has no recent trauma or injury to her legs. She says his pain is constant and burning sensation starting on the left outside of her lateral thigh. He does not radiate up. She is not having any back pain at the moment. She has no shortness of breath, calf pain, coughing, hemoptysis. Allergies and Home Medications Allergies Coded Allergies: No Known Drug Allergies (Unverified , 01/01/17) Home Medications Albuterol Sulfate 18 Gm Hfa.aer.ad, 2 PUFF IH Q4H PRN for SHORTNESS OF BREATH, ( Reported) Alprazolam 0.25 Mg Tablet, 0.5 MG PO TID PRN for ANXIETY, (Reported) TAKES 2 (0.25 MG) TABLETS Bupropion HCl 75 Mg Tablet, 75 MG PO BID, (Reported) Gabapentin 600 Mg Tablet, 600 MG PO TID, (Reported) Lisinopril 20 Mg Tablet, 20 MG PO DAILY@0900 for 30 Days, #30 Prescribed by: WILFREDO COOPER on 01/11/17 1128 Pantoprazole Sodium 40 Mg Tablet.dr, 40 MG PO DAILY, #30 Prescribed by: NUBIA JASON on 03/21/17 1722 Tramadol HCl 50 Mg Tablet, 50 MG PO BID PRN for PAIN-MODERATE, (Reported) Constitutional: No chills, No diaphoresis Respiratory: No cough, No short of breath Cardiovascular: No chest pain, No palpitations Gastrointestinal: No abdominal pain, No constipation, No diarrhea Genitourinary: No discharge, No dysuria : No Musculoskeletal: see HPI, muscle pain, muscle stiffness Skin: pruritus, rash Psychiatric/Neurological: Numbness, Paresthesia Past Eyrvyjl-Ksvfmn-Oeoqrf Hx Patient Social History Alcohol Use: Denies Use Number of Drinks Today: FF Alcohol Beverage of Choice: Vodka Recreational Drug Use: No Drug of Choice: PAST meth, thc Smoking Status: Current Everyday Smoker Type Used: Cigarettes Former Smoker, Quit: December 24, 2016 2nd Hand Smoke Exposure: Yes Recent Foreign Travel: No Contact w/Someone Who Travel: No Recent Infectious Disease Expo: No Recent Hopitalizations: No Physical Abuse: No Sexual Abuse: No Immunizations Up To Date Tetanus Booster (TDap): Unknown Date of Pneumonia Vaccine: Apr 26, 2015 Date of Influenza Vaccine: Sep 09, 2012 Seasonal Allergies Seasonal Allergies: No Surgeries History of Surgeries: Yes (TRANSPOSTION/MEDIAN NERVE & CARPAL TUNNEL X 3, URETERAL STENT, LITHOTRIPSY) Surgeries: Gallbladder, Hysterectomy, Orthopedic, Renal, Tubal Ligation Respiratory History of Respiratory Disorde: Yes Respiratory Disorders: Pneumonia, Chronic Bronchitis, Pulmonary Embolism Currently Using CPAP: No Currently Using BIPAP: No Cardiovascular History of Cardiac Disorders: Yes Cardiac Disorders: Hypertension Neurological History of Neurological Disord: Yes (PSUEDOSEIZURES) Neurological Disorders: Headaches /Migraines, Seizure Disorder 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 System Hx 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 Disorders: No Sexually Transmitted Disease: No HIV/AIDS: No Female 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 Disorders: Denies 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 Genitourinary History of Genitourinary Disor: Yes (KIDNEY STENT) Genitourinary Disorders: Kidney Infection, Kidney Stones, UTI-Chronic Gastrointestinal History of Gastrointestinal Di: No Musculoskeletal History of Musculoskeletal Dis: Yes (MOST ARE SELF-REPORTED, WITH [place] MEDICAL DOCUMENTATION OF THESE CONDITIONS) Musculoskeletal Disorders: Degenerate Disk Disease, Arthritis, Fibromyalgia, Back Injury, Scoliosis, Chronic Back Pain Endocrine History of Endocrine Disorders: Yes (MORBID OBESITY) HEENT History of HEENT Disorders: No Cancer History of Cancer: No Psychosocial History of Psychiatric Problem: Yes (MULTIPLE OVERDOSES-INTENTIONAL SUICIDE ATTEMPT, AND SOME NON-SUICIDAL) Behavioral Health Disorders: Pseudo Seizures, Sleep Difficulties, Anxiety, Suicide Attempts, Depression Suicide Risk Score: 0 Integumentary History of Skin or Integumenta: No Blood Transfusions History of Blood Disorders: No Family Medical History Family Medial History: Alcoholism 19 FATHER (grandfather) Alzheimer's disease 19 MOTHER (grandmother) Arthritis 19 FATHER Cardiovascular disease 19 FATHER 19 MOTHER Cataracts 19 MOTHER Coronary thrombosis 19 FATHER Dementia 19 MOTHER (grandparents) Diabetes mellitus 19 MOTHER Drug abuse 19 FATHER Glaucoma 19 FATHER (grandfather) Headache disorder 19 FATHER Hypercholesterolemia 19 FATHER Hypertension 19 FATHER Myocardial infarction 19 FATHER Parkinson's disease 19 MOTHER Prostate cancer 19 MOTHER (uncle brother of mother) Psychosocial problem 19 FATHER Respiratory disorder 19 FATHER (grandfather) Seizure disorder 19 MOTHER No Family History of: AIDS Abdominal aortic aneurysm Vargas's disease Aphasia Asthma Cancer of mouth Colon cancer Completed stroke Congenital disease Congenital heart disease Cystic fibrosis Deafness or hearing loss Dysphasia Fibrocystic disease of breast Gastroenteritis Infertility Kidney disease Neoplasm Severe allergy Thyroid disease Tuberculosis Visual disorder Physical Exam Vital Signs Vital Sign - Last 12Hours 04/21/17 01:47 Temp 99.0 Pulse 109 Resp 18 B/P (MAP) 184/100 Pulse Ox 97 Capillary Refill : Less Than 3 Seconds General Appearance: WD/WN, no apparent distress HEENT: PERRL/EOMI, pharynx normal Neck: full range of motion, normal inspection Cardiovascular: regular rate, rhythm, no edema Respiratory: no respiratory distress, wheezing (mild bilateral) Gastrointestinal: normal bowel sounds, non tender, soft Back: normal inspection, no vertebral tenderness Hips: right hip non-tender, right hip normal inspection, right hip normal range of motion, right hip no evidence of injury, left hip soft tissue tenderness (proximal lateral over the greater trochanter bursa) Legs: bilateral leg non-tender, bilateral leg normal inspection, bilateral leg normal range of motion, bilateral leg no evidence of injury Knees: bilateral knee non-tender, bilateral knee normal inspection, bilateral knee normal range of motion, bilateral knee no evidence of injury Ankles: bilateral ankle non-tender, bilateral ankle normal inspection, bilateral ankle normal range of motion, bilateral ankle no evidence of injury Neurologic/Tendon: normal sensation, normal motor functions, normal tendon functions, responds to pain, no evidence tendon injury Neurologic/Psychiatric: alert, oriented x 3, other (patellar deep tendon reflexes 2 out of 4 bilateral) Skin: normal color, warm/dry Laceration Repair : Suture Size: 4-0 Progress/Results/Core Measures Results/Orders My Orders Orders - EL BYRNES Lidocaine 1% Injection (Xylocaine 1% Inj (04/21/17 02:00) Bupivacaine 0.5% Injection (Sensorcaine (04/21/17 02:00) Methylprednisolone Acetate Inj (Depo-Med (04/21/17 02:00) Vital Signs/I&O Vital Sign - Last 12Hours 04/21/17 01:47 Temp 99.0 Pulse 109 Resp 18 B/P (MAP) 184/100 Pulse Ox 97 Blood Pressure Mean: 128 Progress Note : Time: 02:04 Progress Note Patient's appearing to have a left greater trochanter hip bursitis. We'll offer her the option of oral prednisone versus injection Depo-Medrol versus seeing her own primary care physician in follow-up. She has elected to be injected. We will also use 1% lidocaine and half percent Marcaine. Patient tolerated procedure well. Departure Impression Impression: Primary Impression: Greater trochanteric bursitis of left hip Disposition: 01 HOME, SELF-CARE Condition: Stable Departure-Patient Inst. Decision time for Depature: 02:11 Referrals: HARVEY LINDSEY DO (PCP/Family) Primary Care Physician Patient Instructions: Bursitis (DC) Add. Discharge Instructions: Drink plenty of fluids and get some sleep and follow-up with her primary care physician as needed. All discharge instructions reviewed with patient and/or family. Voiced understanding. Copy Copies To 1: HARVEY LINDSEY TITUS J Apr 21, 2017 02:05
[2017-04-21 02:13] VITALS: BP 184/100
== END | disposition home or self-care (01) ==
LOC: EDUNIT# 01:41 → ER 01:43
DX: M70.62 Trochanteric bursitis, left hip (principal); F41.9 Anxiety disorder, unspecified; G47.9 Sleep disorder, unspecified; F32.9 Major depressive disorder, single episode, unspecified; E66.01 Morbid (severe) obesity due to excess calories; M47.9 Spondylosis, unspecified; G43.909 Migraine, unspecified, not intractable, without status migrainosus; G40.909 Epilepsy, unspecified, not intractable, without status epilepticus; I10 Essential (primary) hypertension; J42 Unspecified chronic bronchitis; Z98.51 Tubal ligation status; Z87.891 Personal history of nicotine dependence; Z86.711 Personal history of pulmonary embolism; Z96.0 Presence of urogenital implants; Z87.442 Personal history of urinary calculi; Z90.710 Acquired absence of both cervix and uterus; Z91.5 Personal history of self-harm; Z68.42 Body mass index [BMI] 45.0-49.9, adult
CPT/HCPCS: 96372; 99284

== ENCOUNTER 2017-05-23 05:44 | Emergency (ER) | payer MEDICAID ==
[~2017-05-23] VITALS: Ht 152.4 cm; Wt 113.4 kg
[2017-05-23] MEDS ORDERED: LACTATED RINGERS 1,000 ML IV ONE (06:09)
[2017-05-23] MEDS ORDERED: HYOSCYAMINE 0.125 MG (LEVSIN) TAB SL ONE (06:15)
[2017-05-23] MEDS ORDERED: ONDANSETRON 4 MG/2 ML (SDV) Z0FRAN IVP ONE (06:15)
--- NOTE | 2017-05-23 06:23 | ED General ---
General Chief Complaint: Psych/Social Disorder Stated Complaint: ANXIETY Source of Information: Patient, Old Records History of Present Illness Time Seen by Provider: 05:55 Initial Comments PT ARRIVES VIA EMS FROM HOME ( LIVES WITH MOTHER) PT HAD COME TO ER EARLIER THIS EVENING, ALSO BY EMS, FOR THIS PROBLEM--THEN LWBS AFTER ONLY A VERY SHORT WAIT MULTIPLE COMPLAINTS C/O "CHEST PAIN AND CAN'T BREATHE" SINCE 2100 TONIGHT--POINTS TO EPIGASTRIC AREA SITE OF PAIN STATES PAIN RADIATES THROUGH TO BACK C/O NAUSEA/VOMITING/DIARRHEA--EMESIS X4, DIARRHEA "ONE TINY ONE" NO PROBLEMS URINATING--VOIDED JUST PRIOR TO ARRIVAL NO FEVER STATES THIS PAIN FEELS THE SAME WHEN SHE HAD GALLBLADDER ATTACKS--PT IS S/P CHOLECYSTECTOMY PT WITH MULTITUDE OF VISITS FOR VARIOUS COMPLAINTS--11 VISITS IN 2017 --MOST FOR ISSUES RELATING TO POLYSUBSTANCE ABUSE ISSUES/OVERDOSES PT WITH LONG HISTORY OF EXTREME NON-COMPLIANCE IN ALL ASPECTS OF CARE PT HAS BEEN KNOWN TO GIVE FALSE URINE SAMPLES AND HAS BEEN FOUND TO HAVE A SPECIMEN CONTAINER OF URINE IN HER VAGINA IN THE PAST, WELL DRUGS AND A TUBE OF SUPERGLUE IN HER VAGINA IN THE PAST PCP: DR. LINDSEY Allergies and Home Medications Allergies Coded Allergies: No Known Drug Allergies (Unverified , 01/01/17) Home Medications Albuterol Sulfate 18 Gm Hfa.aer.ad, 2 PUFF IH Q4H PRN for SHORTNESS OF BREATH, ( Reported) Alprazolam 0.25 Mg Tablet, 0.5 MG PO TID PRN for ANXIETY, (Reported) TAKES 2 (0.25 MG) TABLETS Bupropion HCl 75 Mg Tablet, 75 MG PO BID, (Reported) Gabapentin 600 Mg Tablet, 600 MG PO TID, (Reported) Lisinopril 20 Mg Tablet, 20 MG PO DAILY@0900 for 30 Days, #30 Prescribed by: WILFREDO COOPER on 01/11/17 1128 Pantoprazole Sodium 40 Mg Tablet.dr, 40 MG PO DAILY, #30 Prescribed by: NUBIA JASON on 03/21/17 1722 Tramadol HCl 50 Mg Tablet, 50 MG PO BID PRN for PAIN-MODERATE, (Reported) Constitutional: no symptoms reported Respiratory: see HPI, short of breath Cardiovascular: see HPI Gastrointestinal: see HPI, abdominal pain, diarrhea, nausea, vomiting Genitourinary: no symptoms reported : No (S/P HYST) Musculoskeletal: see HPI, back pain Skin: no symptoms reported Psychiatric/Neurological: No Symptoms Reported Hematologic/Lymphatic: No Symptoms Reported Immunological/Allergic: no symptoms reported Past Navhjyt-Kftqhx-Rwklyk Hx Patient Social History Alcohol Use: Regular Use (MANY VISITS FOR ALCOHOL INTOXICATION) Alcohol Beverage of Choice: Vodka Recreational Drug Use: Yes (EXTENSIVE POLYSUBSTANCE ABUSE/OVERDOSES--KNOWN TO GET MORPHINE, CODEINE/HYDROCODONE/OXYCODONE AND BENZODIAZEPINES OFF THE STREET, WELL METH AND THC. ) Drug of Choice: METH, THC, PILLS-OPIATES/BENZO'S Smoking Status: Current Everyday Smoker (1 PPD) Type Used: Cigarettes 2nd Hand Smoke Exposure: Yes Recent Foreign Travel: No Contact w/Someone Who Travel: No Recent Hopitalizations: No Immunizations Up To Date Tetanus Booster (TDap): Unknown Date of Pneumonia Vaccine: Apr 26, 2015 Date of Influenza Vaccine: Sep 09, 2012 Seasonal Allergies Seasonal Allergies: No Surgeries History of Surgeries: Yes (TRANSPOSTION/MEDIAN NERVE & CARPAL TUNNEL X 3, URETERAL STENT, LITHOTRIPSY; HYST/OVARIES INTACT) Surgeries: Gallbladder, Hysterectomy, Orthopedic, Renal, Tubal Ligation Respiratory History of Respiratory Disorde: Yes (HX OF P.E.--OFF ANTICOAGULANTS FOR OVER A YEAR, PER PT ON 05/23/17) Respiratory Disorders: Pneumonia, Chronic Bronchitis, Pulmonary Embolism Currently Using CPAP: No Currently Using BIPAP: No Cardiovascular History of Cardiac Disorders: Yes Cardiac Disorders: Hypertension Neurological History of Neurological Disord: Yes (PSUEDOSEIZURES) Neurological Disorders: Headaches /Migraines, Seizure Disorder 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 System Hx 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 Disorders: No Sexually Transmitted Disease: No HIV/AIDS: No Female 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 Disorders: 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 Genitourinary History of Genitourinary Disor: Yes (URETERAL STENT) Genitourinary Disorders: Kidney Infection, Kidney Stones, UTI-Chronic Gastrointestinal History of Gastrointestinal Di: Yes Gastrointestinal Disorders: Gall Bladder Disease (S/P NATHALIE) Musculoskeletal History of Musculoskeletal Dis: Yes (MOST ARE SELF-REPORTED, WITH [place] MEDICAL DOCUMENTATION OF THESE CONDITIONS) Musculoskeletal Disorders: Degenerate Disk Disease, Arthritis, Fibromyalgia, Back Injury, Scoliosis, Chronic Back Pain Endocrine History of Endocrine Disorders: Yes (MORBID OBESITY) HEENT History of HEENT Disorders: Yes (TMJ PROBLEMS, PER PT. EXTENSIVE DENTAL CARIES/ MULTIPLE MISSING TEETH) Cancer History of Cancer: No Psychosocial History of Psychiatric Problem: Yes (MULTIPLE OVERDOSES-INTENTIONAL SUICIDE ATTEMPT, AND SOME NON-SUICIDAL) Behavioral Health Disorders: Pseudo Seizures, Sleep Difficulties, Anxiety, Suicide Attempts, Depression Integumentary History of Skin or Integumenta: No Blood Transfusions History of Blood Disorders: No Family Medical History Family Medial History: Alcoholism 19 FATHER (grandfather) Alzheimer's disease 19 MOTHER (grandmother) Arthritis 19 FATHER Cardiovascular disease 19 FATHER 19 MOTHER Cataracts 19 MOTHER Coronary thrombosis 19 FATHER Dementia 19 MOTHER (grandparents) Diabetes mellitus 19 MOTHER Drug abuse 19 FATHER Glaucoma 19 FATHER (grandfather) Headache disorder 19 FATHER Hypercholesterolemia 19 FATHER Hypertension 19 FATHER Myocardial infarction 19 FATHER Parkinson's disease 19 MOTHER Prostate cancer 19 MOTHER (uncle brother of mother) Psychosocial problem 19 FATHER Respiratory disorder 19 FATHER (grandfather) Seizure disorder 19 MOTHER No Family History of: AIDS Abdominal aortic aneurysm [place]'s disease Aphasia Asthma Cancer of mouth Colon cancer Completed stroke Congenital disease Congenital heart disease Cystic fibrosis Deafness or hearing loss Dysphasia Fibrocystic disease of breast Gastroenteritis Infertility Kidney disease Neoplasm Severe allergy Thyroid disease Tuberculosis Visual disorder Physical Exam Vital Signs Vital Sign - Last 12Hours 05/23/17 05:44 Temp 96.5 Pulse 77 Resp 20 B/P (MAP) 182/110 Pulse Ox 100 O2 Delivery Room Air Capillary Refill : General Appearance: Other (MORBIDLY OBESE, VERY MALODOROUS, COVERED IN ANIMAL HAIR. VERY DRAMATIC. AMBULATES UPRIGHT WITHOUT DIFFICULTY. ) HEENT: PERRL/EOMI, Other (MULTIPLE MISSING TEETH AND REMAINING TEETH WITH EXTENSIVE DECAY) Neck: Full Range of Motion, Normal Inspection, Non Tender, Supple Respiratory: Normal Breath Sounds, No Accessory Muscle Use, No Respiratory Distress Cardiovascular: Regular Rate, Rhythm, No Edema, No JVD, No Murmur, Normal Peripheral Pulses Gastrointestinal: Normal Bowel Sounds, No Organomegaly, No Pulsatile Mass, Soft , Tenderness (EPIGASTRIC AND RUQ/LUQ TENDERNESS--MOST TENDER IN EPIGASTRIC AREA) Back: No CVA Tenderness Extremity: Normal Inspection, No Calf Tenderness, No Pedal Edema Neurologic/Psychiatric: Alert, Oriented x3, No Motor/Sensory Deficits, 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- XII Norm as Tested, Other (DRAMATIC) Skin: Normal Color, Warm/Dry Laceration Repair : Suture Size: 4-0 Progress/Results/Core Measures Results/Orders Lab Results Laboratory Tests Test 05/23/17 06:30 05/23/17 08:00 Range/Units Urine Color YELLOW Urine Clarity CLEAR Urine pH 8 5-9 Urine Specific [place] 1.010 L 1.016-1.022 Urine Protein NEGATIVE NEGATIVE Urine Glucose (UA) NEGATIVE NEGATIVE Urine Ketones NEGATIVE NEGATIVE Urine Nitrite NEGATIVE NEGATIVE Urine Bilirubin NEGATIVE NEGATIVE Urine Urobilinogen NORMAL NORMAL MG/DL Urine Leukocyte Esterase 1+ H NEGATIVE Urine RBC (Auto) NEGATIVE NEGATIVE Urine RBC NONE /HPF Urine WBC RARE /HPF Urine Squamous Epithelial Cells 2-5 /HPF Urine Crystals NONE /LPF Urine Bacteria TRACE /HPF Urine Casts NONE /LPF Urine Mucus NEGATIVE /LPF Urine Culture Indicated NO Urine Opiates Screen NEGATIVE NEGATIVE Urine Oxycodone Screen NEGATIVE NEGATIVE Urine Methadone Screen NEGATIVE NEGATIVE Urine Propoxyphene Screen NEGATIVE NEGATIVE Urine Barbiturates Screen NEGATIVE NEGATIVE Ur Tricyclic Antidepressants Screen NEGATIVE NEGATIVE Urine Phencyclidine Screen NEGATIVE NEGATIVE Urine Amphetamines Screen NEGATIVE NEGATIVE Urine Methamphetamines Screen NEGATIVE NEGATIVE Urine Benzodiazepines Screen POSITIVE H NEGATIVE Urine Cocaine Screen NEGATIVE NEGATIVE Urine Cannabinoids Screen POSITIVE H NEGATIVE White Blood Count 12.0 H 4.3-11.0 10^3/uL Red Blood Count 5.55 4.35-5.85 10^6/uL Hemoglobin 16.1 H 11.5-16.0 G/DL Hematocrit 48 35-52 % Mean Corpuscular Volume 87 80-99 FL Mean Corpuscular Hemoglobin 29 25-34 PG Mean Corpuscular Hemoglobin Concent 34 32-36 G/DL Red Cell Distribution Width 13.3 10.0-14.5 % Platelet Count 311 130-400 10^3/uL Mean Platelet Volume 10.3 7.4-10.4 FL Neutrophils (%) (Auto) 72 42-75 % Lymphocytes (%) (Auto) 23 12-44 % Monocytes (%) (Auto) 4 0-12 % Eosinophils (%) (Auto) 0 0-10 % Basophils (%) (Auto) 0 0-10 % Neutrophils # (Auto) 8.6 H 1.8-7.8 X 10^3 Lymphocytes # (Auto) 2.8 1.0-4.0 X 10^3 Monocytes # (Auto) 0.5 0.0-1.0 X 10^3 Eosinophils # (Auto) 0.1 0.0-0.3 10^3/uL Basophils # (Auto) 0.0 0.0-0.1 10^3/uL Prothrombin Time 12.9 12.2-14.7 SEC INR Comment 1.0 0.8-1.4 Activated Partial Thromboplast Time 31 24-35 SEC Sodium Level 140 135-145 MMOL/L Potassium Level 3.7 3.6-5.0 MMOL/L Chloride Level 103 98-107 MMOL/L Carbon Dioxide Level 22 21-32 MMOL/L Anion Gap 15 H 5-14 MMOL/L Blood Urea Nitrogen 9 7-18 MG/DL Creatinine 0.71 0.60-1.30 MG/DL Estimat Glomerular Filtration Rate > 60 BUN/Creatinine Ratio 13 Glucose Level 98 70-105 MG/DL Calcium Level 10.6 H 8.5-10.1 MG/DL Magnesium Level 2.0 1.8-2.4 MG/DL Total Bilirubin 0.3 0.1-1.0 MG/DL Aspartate Amino Transf (AST/SGOT) 20 5-34 U/L Alanine Aminotransferase (ALT/SGPT) 17 0-55 U/L Alkaline Phosphatase 93 40-136 U/L Troponin I < 0.30 <0.30 NG/ML B-Type Natriuretic Peptide 32.7 <100.0 PG/ML Total Protein 8.6 H 6.4-8.2 GM/DL Albumin 4.3 3.2-4.5 GM/DL Amylase Level 35 25-125 U/L Lipase 20 8-78 U/L Serum Alcohol < 10 <10 MG/DL My Orders Orders - TEODORA ROCA DO Saline Lock/Iv-Start (05/23/17 06:09) Ekg Tracing (05/23/17 06:09) Monitor-Rhythm Ecg Trace Only (05/23/17 06:09) Alcohol (05/23/17 06:09) Amylase (05/23/17 06:09) BNP (05/23/17 06:09) Cbc With Automated Diff (05/23/17 06:09) Comprehensive Metabolic Panel (05/23/17 06:09) Drug Screen Stat (Urine) (05/23/17 06:09) Lipase (05/23/17 06:09) Magnesium (05/23/17 06:09) Protime With Inr (05/23/17 06:09) Partial Thromboplastin Time (05/23/17 06:09) Troponin I (05/23/17 06:09) Ua Culture If Indicated (05/23/17 06:09) Saline Lock/Iv-Start (05/23/17 06:09) Lactated Ringers (Lr 1000 Ml Iv Solution (05/23/17 06:09) Ondansetron Injection (Zofran Injectio (05/23/17 06:15) Hyoscyamine Sl Tablet (Levsin Sl Tablet) (05/23/17 06:15) Diphenhydramine Injection (Benadryl Inje (05/23/17 08:45) Diphenhydramine Injection (Benadryl Inje (05/23/17 08:30) Medications Given in ED Current Medications Medications Dose Ordered Sig/Garry Route Start Time Stop Time Status Last Admin Dose Admin Diphenhydramine HCl 50 mg ONCE ONCE IVP 05/23/17 08:45 05/23/17 08:45 DC 05/23/17 08:40 50 MG Hyoscyamine Sulfate 0.25 mg ONCE ONCE SL 05/23/17 06:15 05/23/17 06:16 DC 05/23/17 07:42 0.25 MG Lactated Ringer's 1,000 ml @ 0 mls/hr Q0M ONCE IV 05/23/17 06:09 05/23/17 06:12 DC 05/23/17 07:43 1,000 MLS/HR Ondansetron HCl 8 mg ONCE ONCE IVP 05/23/17 06:15 05/23/17 06:16 DC 05/23/17 07:43 8 MG Vital Signs/I&O Vital Sign - Last 12Hours 05/23/17 05:44 Temp 96.5 Pulse 77 Resp 20 B/P (MAP) 182/110 Pulse Ox 100 O2 Delivery Room Air Progress Note : Progress Note NO VOMITING DURING ER STAY--PT STATES "ZOFRAN DOESN'T WORK"--WANTS PHENERGAN AND PAIN MEDICATION, ADVISED PT SHE WOULD NEED TO WAIT FOR CT RESULTS BEFORE GIVING PAIN MEDICATION--PT PROMPTLY SIGNED OUT AMA BEFORE SHE WENT TO CT. OFFERED ALTERNATIVE MEDICATIONS AND PT REFUSED. PT WITH EXTENSIVE PAIN MEDICATION ABUSE/POLYSUBSTANCE HISTORY ECG Initial ECG Impression Time: 05:44 Initial ECG Rate: 73 Initial ECG Rhythm: Normal Sinus Initial ECG Impression: Nonspecific Changes Initial ECG Comparisson: Unchanged Departure Impression Impression: Primary Impression: Left against medical advice Disposition: 07 AGAINST MEDICAL ADVICE Condition: Against Medical Advice Departure-Patient Inst. Referrals: HARVEY LINDSEY DO (PCP/Family) Primary Care Physician TEODORA ROCA DO May 23, 2017 06:23
[2017-05-23 06:49] LABS: BILIRUBIN,URINE NEGATIVE (NEGATIVE); KETONES,URINE NEGATIVE (NEGATIVE); LEUKOCYTE ESTERASE ,URINE 1+ (NEGATIVE); NITRITE,URINE NEGATIVE (NEGATIVE); PH,URINE 8 (5-9); PROTEIN,URINE NEGATIVE (NEGATIVE); UROBILINOGEN,URINE NORMAL (NORMAL)
[2017-05-23 06:54] LABS: WBC,URINE RARE /HPF
[2017-05-23 08:08] LABS: BASOPHILS % (AUTO) 0 % (0-10); EOSINOPHILS # (AUTO) 0.1 10^3/uL (0.0-0.3); EOSINOPHILS % (AUTO) 0 % (0-10); LYMPHOCYTES # (AUTO) 2.8 X 10^3 (1.0-4.0); LYMPHOCYTES % (AUTO) 23 % (12-44); MEAN CORPUSCULAR HEMOGLOBIN 29 PG (25-34); MEAN CORPUSCULAR HGB CONC 34 G/DL (32-36); MEAN CORPUSCULAR VOLUME 87 FL (80-99); MEAN PLATELET VOLUME 10.3 FL (7.4-10.4); MONOCYTES # (AUTO) 0.5 X 10^3 (0.0-1.0); MONOCYTES % (AUTO) 4 % (0-12); NEUTROPHILS # (AUTO) 8.6 X 10^3 (1.8-7.8); NEUTROPHILS % (AUTO) 72 % (42-75); PLATELET COUNT 311 10^3/uL (130-400); RED BLOOD COUNT 5.55 10^6/uL (4.35-5.85); RED CELL DISTRIBUTION WIDTH 13.3 % (10.0-14.5)
[2017-05-23 08:19] LABS: PROTHROMBIN TIME PATIENT 12.9 SEC (12.2-14.7)
[2017-05-23 08:29] LABS: ALANINE AMINOTRANSFERASE 17 U/L (0-55); ALBUMIN 4.3 GM/DL (3.2-4.5); ALCOHOL < 10 MG/DL (<10); AMYLASE 35 U/L (25-125); ANION GAP 15 MMOL/L (5-14); ASPARTATE AMINO TRANSFERASE 20 U/L (5-34); BILIRUBIN,TOTAL 0.3 MG/DL (0.1-1.0); BLOOD UREA NITROGEN 9 MG/DL (7-18); BUN/CREATININE RATIO 13; CALCIUM 10.6 MG/DL (8.5-10.1); CARBON DIOXIDE 22 MMOL/L (21-32); CHLORIDE 103 MMOL/L (98-107); CREATININE SERUM 0.71 MG/DL (0.60-1.30); GFR ESTIMATED > 60; GLUCOSE 98 MG/DL (70-105); LIPASE 20 U/L (8-78); POTASSIUM 3.7 MMOL/L (3.6-5.0); SODIUM 140 MMOL/L (135-145); TOTAL PROTEIN 8.6 GM/DL (6.4-8.2)
[2017-05-23] MEDS ORDERED: diphenhydrAMINE 50 MG/ML INJ (BENADRYL) ONE (08:30)
[2017-05-23 08:35] LABS: TROPONIN I < 0.30 NG/ML (<0.30)
[2017-05-23 08:41] VITALS: BP 182/110
[2017-05-23] MEDS ORDERED: diphenhydrAMINE 50 MG/ML INJ (BENADRYL) IVP ONE (08:45)
== END 2017-05-23 08:43 | disposition left against medical advice (07) ==
LOC: EDUNIT# 05:44 → ER 05:45
DX: R07.9 Chest pain, unspecified (principal); R06.02 Shortness of breath; R10.13 Epigastric pain; R11.2 Nausea with vomiting, unspecified; R19.7 Diarrhea, unspecified; I10 Essential (primary) hypertension; F41.9 Anxiety disorder, unspecified; F32.9 Major depressive disorder, single episode, unspecified; E66.01 Morbid (severe) obesity due to excess calories; F17.210 Nicotine dependence, cigarettes, uncomplicated; Z90.710 Acquired absence of both cervix and uterus; Z98.51 Tubal ligation status; Z86.711 Personal history of pulmonary embolism; Z96.0 Presence of urogenital implants; Z90.49 Acquired absence of other specified parts of digestive tract; Z91.5 Personal history of self-harm
CPT/HCPCS: 36415; 80053; 80306; 80320; 81000; 82150; 83690; 83735; 83880; 84484; 85025; 85610; 85730; 93005; 93041; 96374; 96375

== ENCOUNTER 2017-08-30 21:42 | Inpatient (IN) | payer MEDICAID ==
[~2017-08-30] VITALS: Ht 152.4 cm; Wt 131.1 kg
[2017-08-30] MEDS ORDERED: NS IV 1000 ML 1,000 ML IV ONE ×2 (21:53→23:57)
[2017-08-30] MEDS ORDERED: AMIT25TA9 PO (21:57)
[2017-08-30] MEDS ORDERED: DULO60CA58 PO (21:57)
[2017-08-30 22:10] LABS: ABG BASE EXCESS -10.9 MMOL/L (-2.5-2.5); ABG OXYGEN SATURATION 95 % (94-100); ABG PCO2 42 MMHG (35-45); ABG PO2 81 MMHG (79-93); ABG TCO2 17.1 MMOL/L (21.0-31.0)
[2017-08-30 22:16] LABS: ABG PH 7.19 (7.37-7.43); ALLENS TEST POSITIVE; INSPIRED O2 5L; PATIENT TEMP 98.3; VENTILATOR NO
[2017-08-30] MEDS ORDERED: LORazepam INJ 2 MG/ML (ATIVAN) VIAL ONE (22:18)
[2017-08-30] MEDS ORDERED: PROPOFOL DRIP (ICU) 100 ML IV ONE (22:28)
[2017-08-30 22:38] LABS: BASOPHILS # (AUTO) 0.1 10^3/uL (0.0-0.1); BASOPHILS % (AUTO) 0 % (0-10); EOSINOPHILS # (AUTO) 0.2 10^3/uL (0.0-0.3); EOSINOPHILS % (AUTO) 1 % (0-10); HEMATOCRIT 44 % (35-52); HEMOGLOBIN 15.2 G/DL (11.5-16.0); LYMPHOCYTES # (AUTO) 7.7 X 10^3 (1.0-4.0); LYMPHOCYTES % (AUTO) 28 % (12-44); MEAN CORPUSCULAR HEMOGLOBIN 30 PG (25-34); MEAN CORPUSCULAR HGB CONC 35 G/DL (32-36); MEAN CORPUSCULAR VOLUME 88 FL (80-99); MEAN PLATELET VOLUME 9.8 FL (7.4-10.4); MONOCYTES # (AUTO) 1.5 X 10^3 (0.0-1.0); MONOCYTES % (AUTO) 5 % (0-12); NEUTROPHILS # (AUTO) 18.5 X 10^3 (1.8-7.8); NEUTROPHILS % (AUTO) 66 % (42-75); PLATELET COUNT 382 10^3/uL (130-400); RED BLOOD COUNT 5.03 10^6/uL (4.35-5.85); WHITE BLOOD COUNT 27.9 10^3/uL (4.3-11.0)
[2017-08-30] MEDS ORDERED: ROCURONIUM 50 MG/5 ML (ZEMURON) VIAL IV ONE (22:45)
[2017-08-30] MEDS: PROPOFOL DRIP (ICU) 100 ML IV SCH (22:45)
[2017-08-30] MEDS ORDERED: SUCCINYLCHOLINE INJ 100 MG/5 ML SYR INJ ONE (22:45)
[2017-08-30] MEDS ORDERED: LORazepam INJ 2 MG/ML (ATIVAN) VIAL IVP ONE (22:45)
[2017-08-30] MEDS ORDERED: SODIUM BICARB 8.4% 50 MEQ/50 ML (ABBOTT) SYR IV ONE (22:45)
--- NOTE | 2017-08-30 22:49 | Anesthesia-Procedure Note ---
Procedure Start/Stop Time Date of Procedure: Aug 30, 2017 Start Time: 22:25 Referring Physician: Farzad Stop Time: 22:38 Procedures/Interventions RSI: Yes 100% pre-Ox, [id number]: Yes Intubation Method: orotracheal Videoscope used: Yes Grade View: 1 Medications: Propofol (200), Rocuronium (50), Succinylcholine (100) Mask Ventilation: positive Positive End Tide CO2: Yes Breath Sounds after Intubation: bilateral-equal ETT Securred @ (cm): 21 Intubated with ease: Yes Intubation Complications: no complications Care turned over to: ED Staff ALEXI GALLEGO CRNA Aug 30, 2017 22:49
[2017-08-30 22:54] LABS: INR 1.1 (0.8-1.4); PROTHROMBIN TIME PATIENT 14.3 SEC (12.2-14.7)
[2017-08-30 22:58] LABS: NEUTROPHILS % (MANUAL) 58 %
[2017-08-30 22:59] LABS: BAND NEUTROPHILS 4 %; BASOPHILS % (MANUAL) 0 %; EOSINOPHILS % (MANUAL) 2 %; LYMPHOCYTES % (MANUAL) 31 %; MONOCYTES % (MANUAL) 5 %; RBC MORPH NORMAL
[2017-08-30 23:00] LABS: ALANINE AMINOTRANSFERASE 42 U/L (0-55); ALKALINE PHOSPHATASE 121 U/L (40-136); BILIRUBIN,TOTAL 0.2 MG/DL (0.1-1.0); BUN/CREATININE RATIO 10; CALCIUM 9.4 MG/DL (8.5-10.1); CARBON DIOXIDE 14 MMOL/L (21-32); CHLORIDE 104 MMOL/L (98-107); CREATINE KINASE 106 U/L (29-168); CREATININE SERUM 0.99 MG/DL (0.60-1.30); GFR ESTIMATED 60; GLUCOSE 259 MG/DL (70-105); MAGNESIUM 2.5 MG/DL (1.8-2.4); POTASSIUM 3.5 MMOL/L (3.6-5.0); SODIUM 145 MMOL/L (135-145); TOTAL PROTEIN 7.9 GM/DL (6.4-8.2)
--- NOTE | 2017-08-30 23:04 | ED General ---
General Chief Complaint: Code Blue Stated Complaint: CODE Nursing Triage Note: BROUGHT IN BY [facility] FOR POST CODE. INITIAL RHYTHM PEA, ROSC 8 PER EMS Nursing Sepsis Screen: No Definite Risk Source of Information: EMS, Old Records (ALL PMH IS FROM OLD RECORDS) Exam Limitations: Other (PT NON-COMMUNICATIVE) History of Present Illness Time Seen by Provider: 21:43 Initial Comments PT ARRIVES VIA EMS FROM HOME--PT LIVES WITH MOTHER EMS REPORT THEY WERE CALLED TO RESIDENCE FOR "CODE BLUE" WHEN THEY ARRIVED, FIRE DEPT WAS DOING CPR ON PT--NO ONE IN THE HOME HAD DONE CPR UNTIL FIRE DEPT ARRIVED EMS STATE THEY THOUGHT PT MIGHT POSSIBLY BE IN [place] AND "WAS MAKING WEIRD NOISES" WITH BREATHING PT HAD ROSC WITH CPR, I/O PLACED IN LEFT LOWER LEG, AND NO FURTHER INTERVENTION WAS DONE BY EMS, PRIOR TO BEING BROUGHT TO ER EMS STATE THAT PT'S MOTHER SAID THAT PT HAD BEEN WALKING IN THE HOUSE AND HEARD PT "FALL" AND PT WAS POSSIBLY HAVING SEIZURE-LIKE ACTIVITY AND WAS UNRESPONSIVE NO OTHER INFORMATION IS OBTAINABLE PT IS VERY WELL KNOWN TO ER/HOSPITAL STAFF PT WITH MULTITUDE OF VISITS, WITH MANY BEING POLYSUBSTANCE-ABUSE RELATED-- MULTITUDE OF OVERDOSES ( BOTH ACCIDENTAL AND INTENTIONAL) AND ALCOHOL ABUSE PT HAS BEEN KNOWN TO GIVE FALSE URINE SAMPLES AND HAS ALSO BEEN FOUND TO HAVE A SPECIMEN CONTAINER OF URINE IN HER VAGINA IN THE PAST, WELL DRUGS IN HER VAGINA, AND A TUBE OF SUPERGLUE IN HER VAGINA IN THE PAST. PT WITH HISTORY OF EXTREME NON-COMPLIANCE IN ALL ASPECTS OF CARE PCP: DR. LINDSEY PCP: DR. LINDSEY Allergies and Home Medications Allergies Coded Allergies: No Known Drug Allergies (Unverified , 01/01/17) Home Medications Albuterol Sulfate 18 Gm Hfa.aer.ad, 2 PUFF IH Q4H PRN for SHORTNESS OF BREATH, ( Reported) Alprazolam 0.25 Mg Tablet, 0.5 MG PO TID PRN for ANXIETY, (Reported) TAKES 2 (0.25 MG) TABLETS Amitriptyline HCl 25 Mg Tablet, (Reported) Bupropion HCl 75 Mg Tablet, 75 MG PO BID, (Reported) Duloxetine HCl 60 Mg Capsule., (Reported) Gabapentin 600 Mg Tablet, 600 MG PO TID, (Reported) Lisinopril 20 Mg Tablet, 20 MG PO DAILY@0900 for 30 Days, #30 Prescribed by: WILFREDO COOPER on 01/11/17 1128 Pantoprazole Sodium 40 Mg Tablet.dr, 40 MG PO DAILY, #30 Prescribed by: NUBIA JASON on 03/21/17 1722 Tramadol HCl 50 Mg Tablet, 50 MG PO BID PRN for PAIN-MODERATE, (Reported) Constitutional: other (UNABLE TO OBTAIN FROM PT) Past Qwkecpi-Zfzsyp-Entlux Hx Patient Social History Alcohol Use: Regular Use (MULTITUDE OF VISITS FOR ALCOHOL INTOXICATION) Number of Drinks Today: FF Alcohol Beverage of Choice: Vodka Recreational Drug Use: Yes (EXTENSIVE POLYSUBSTANCE ABUSE/OVERDOSES-KNOWN TO GET MORPHINE, CODEINE/HYDROCODONE/OXYCODONE AND BENZODIAZEPINES OFF THE STREET, WELL METH AND THC. MULTIPLE OVERDOSES BOTH "ACCIDENTAL" DUE TO ABUSE WELL INTENTIONAL SUICIDE GESTURE. ) Drug of Choice: METH, THC, PILLS-OPIATES/BENZO'S Smoking Status: Current Everyday Smoker (1 PPD) Type Used: Cigarettes (1 PPD) 2nd Hand Smoke Exposure: Yes Recent Foreign Travel: No Contact w/Someone Who Travel: No Recent Infectious Disease Expo: No Recent Hopitalizations: No Immunizations Up To Date Tetanus Booster (TDap): Unknown Date of Pneumonia Vaccine: Apr 26, 2015 Date of Influenza Vaccine: Sep 09, 2012 Seasonal Allergies Seasonal Allergies: No Surgeries History of Surgeries: Yes (TRANSPOSITION OF MEDIAN NERVE AND CARPAL TUNNEL SURGERY X 3; URETERAL STENT;LITHOTRIPSY; HYST/OVARIES INTACT) Surgeries: Gallbladder, Hysterectomy, Orthopedic, Renal, Tubal Ligation Respiratory History of Respiratory Disorde: Yes (HX OF P.E.--OFF ANTICOAGULANTS FOR OVER A YEAR, PER PT ON 05/23/17) Respiratory Disorders: Pneumonia, Chronic Bronchitis, Pulmonary Embolism Currently Using CPAP: No Currently Using BIPAP: No Cardiovascular History of Cardiac Disorders: Yes Cardiac Disorders: Hypertension Neurological History of Neurological Disord: Yes (PSUEDOSEIZURES) Neurological Disorders: Headaches /Migraines, Seizure Disorder 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 System Hx 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 Disorders: No Sexually Transmitted Disease: No HIV/AIDS: No Female 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 Disorders: Denies 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 Genitourinary History of Genitourinary Disor: Yes (URETERAL STENT) Genitourinary Disorders: Kidney Infection, Kidney Stones, UTI-Chronic Gastrointestinal History of Gastrointestinal Di: Yes (S/P NATHALIE) Gastrointestinal Disorders: Gall Bladder Disease Musculoskeletal History of Musculoskeletal Dis: Yes (MOST ARE SELF-REPORTED, WITH [place] MEDICAL DOCUMENTATION OF THESE CONDITIONS) Musculoskeletal Disorders: Degenerate Disk Disease, Arthritis, Fibromyalgia, Back Injury, Scoliosis, Chronic Back Pain Endocrine History of Endocrine Disorders: Yes (MORBID OBESITY) HEENT History of HEENT Disorders: Yes (TMJ PROBLEMS, PER PT. EXTENSIVE DENTAL CARIES/ MULTIPLE MISSING TEETH) Cancer History of Cancer: No Psychosocial History of Psychiatric Problem: Yes (MULTIPLE OVERDOSES-INTENTIONAL SUICIDE ATTEMPT, AND SOME NON-SUICIDAL ) Behavioral Health Disorders: Pseudo Seizures, Sleep Difficulties, Anxiety, Suicide Attempts, Depression Integumentary History of Skin or Integumenta: No Blood Transfusions History of Blood Disorders: No Family Medical History Family Medial History: Alcoholism 19 FATHER (grandfather) Alzheimer's disease 19 MOTHER (grandmother) Arthritis 19 FATHER Cardiovascular disease 19 FATHER 19 MOTHER Cataracts 19 MOTHER Coronary thrombosis 19 FATHER Dementia 19 MOTHER (grandparents) Diabetes mellitus 19 MOTHER Drug abuse 19 FATHER Glaucoma 19 FATHER (grandfather) Headache disorder 19 FATHER Hypercholesterolemia 19 FATHER Hypertension 19 FATHER Myocardial infarction 19 FATHER Parkinson's disease 19 MOTHER Prostate cancer 19 MOTHER (uncle brother of mother) Psychosocial problem 19 FATHER Respiratory disorder 19 FATHER (grandfather) Seizure disorder 19 MOTHER No Family History of: AIDS Abdominal aortic aneurysm Vargas's disease Aphasia Asthma Cancer of mouth Colon cancer Completed stroke Congenital disease Congenital heart disease Cystic fibrosis Deafness or hearing loss Dysphasia Fibrocystic disease of breast Gastroenteritis Infertility Kidney disease Neoplasm Severe allergy Thyroid disease Tuberculosis Visual disorder Physical Exam Vital Signs Vital Sign - Last 12Hours 08/30/17 23:28 FiO2 100 Capillary Refill : Less Than 3 Seconds General Appearance: Obese (MORBIDLY), Other (MALODOROUS, DIRTY, COVERED IN ANIMAL HAIR; PT HAS APPEARANCE OF BEING POST-ICTAL, WITH RANDOM SLIGHT TWITCHING OF FINGERS/TOES/HANDS / FEET. EYES OPEN AND BLINKING AND MAKING EYE CONTACT, BUT ONLY VERBAL RESPONSE IS MINIMAL MUMBLING/INCOHERENT NOISES. PT HAS BEEN INCONTINENT OF BOWEL AND BLADDER. ) HEENT: PERRL/EOMI, Other (NO EXTERNAL EVIDENCE OF TRAUMA TO HEAD OR MOUTH/ TONGUE; POOR DENTITION WITH MULTIPLE MISSING TEETH AND REMAINING TEETH WITH EXTENSIVE DECAY) Respiratory: Normal Breath Sounds, No Accessory Muscle Use, No Respiratory Distress Cardiovascular: Regular Rate, Rhythm, No Murmur Gastrointestinal: Soft Extremity: Normal Capillary Refill, Normal Range of Motion, No Pedal Edema Neurologic/Psychiatric: No Motor/Sensory Deficits (GROSSLY INTACT. PT NOT ANSWERING QUESTIONS OR FOLLOWING COMMANDS), Other (MENTATION NOTED ABOVE) Focused Exam Evaluation Lactate Level Laboratory Tests 08/30/17 22:25: Lactic Acid Level 16.51*H 08/31/17 01:00: Lactic Acid Level 3.58*H Lactic Acid Level Intubation Method: orotracheal Medications: Propofol (200), Rocuronium (50), Succinylcholine (100) Positive End Tide CO2: Yes Breath Sounds after Intubation: bilateral-equal Intubation Complications: no complications Laceration Repair : Suture Size: 4-0 Progress/Results/Core Measures Suspected Sepsis Recent Fever Within 48 Hours: No Infection Criteria Present: None New/Unexplained Altered Menta: No Sepsis Screen: No Definite Risk Sepsis Diagnosis: SIRS Temperature:98.3 Pulse: 105 Respiratory Rate: 30 Laboratory Tests 08/31/17 01:00: White Blood Count 24.4H 08/31/17 05:40: White Blood Count 20.9H 09/01/17 06:30: Blood Pressure 134 /94 Mean: 107 Laboratory Tests 08/30/17 22:25: Lactic Acid Level 16.51*H 08/31/17 01:00: Lactic Acid Level 3.58*H Laboratory Tests 08/30/17 22:25: INR Comment 1.1, Total Bilirubin 0.2 08/31/17 01:00: Creatinine 0.77, Platelet Count 279 08/31/17 05:40: Total Bilirubin 0.2, Creatinine 0.76, Platelet Count 256 09/01/17 05:00: Creatinine 0.61 09/01/17 06:30: Results/Orders Lab Results Laboratory Tests Test 08/30/17 22:00 08/30/17 22:25 08/30/17 23:05 08/30/17 23:19 Range/Units Blood Gas Puncture Site RIGHT RADIAL RIGHT RADIAL Blood Gas Patient Temperature 98.3 98.3 Arterial Blood pH 7.19 *L 7.22 *L 7.37-7.43 Arterial Blood Partial Pressure CO2 42 61 H 35-45 MMHG Arterial Blood Partial Pressure O2 81 175 H 79-93 MMHG Arterial Blood HCO3 16 *L 24 23-27 MMOL/L Arterial Blood Total CO2 17.1 L 25.9 21.0-31.0 MMOL/L Arterial Blood Oxygen Saturation 95 99 94-100 % Arterial Blood Base Excess -10.9 L -2.8 L -2.5-2.5 MMOL/L Don Test POSITIVE POSITIVE Blood Gas Ventilator Setting NO YES Blood Gas Inspired Oxygen 5L 100% White Blood Count 27.9 H 4.3-11.0 10^3/uL Red Blood Count 5.03 4.35-5.85 10^6/uL Hemoglobin 15.2 11.5-16.0 G/DL Hematocrit 44 35-52 % Mean Corpuscular Volume 88 80-99 FL Mean Corpuscular Hemoglobin 30 25-34 PG Mean Corpuscular Hemoglobin Concent 35 32-36 G/DL Red Cell Distribution Width 15.0 H 10.0-14.5 % Platelet Count 382 130-400 10^3/uL Mean Platelet Volume 9.8 7.4-10.4 FL Neutrophils (%) (Auto) 66 42-75 % Lymphocytes (%) (Auto) 28 12-44 % Monocytes (%) (Auto) 5 0-12 % Eosinophils (%) (Auto) 1 0-10 % Basophils (%) (Auto) 0 0-10 % Neutrophils # (Auto) 18.5 H 1.8-7.8 X 10^3 Lymphocytes # (Auto) 7.7 H 1.0-4.0 X 10^3 Monocytes # (Auto) 1.5 H 0.0-1.0 X 10^3 Eosinophils # (Auto) 0.2 0.0-0.3 10^3/uL Basophils # (Auto) 0.1 0.0-0.1 10^3/uL Neutrophils % (Manual) 58 % Lymphocytes % (Manual) 31 % Monocytes % (Manual) 5 % Eosinophils % (Manual) 2 % Basophils % (Manual) 0 % Band Neutrophils 4 % Blood Morphology Comment NORMAL Prothrombin Time 14.3 12.2-14.7 SEC INR Comment 1.1 0.8-1.4 Activated Partial Thromboplast Time 30 24-35 SEC Sodium Level 145 135-145 MMOL/L Potassium Level 3.5 L 3.6-5.0 MMOL/L Chloride Level 104 98-107 MMOL/L Carbon Dioxide Level 14 L 21-32 MMOL/L Anion Gap 27 H 5-14 MMOL/L Blood Urea Nitrogen 10 7-18 MG/DL Creatinine 0.99 0.60-1.30 MG/DL Estimat Glomerular Filtration Rate 60 BUN/Creatinine Ratio 10 Glucose Level 259 H 70-105 MG/DL Lactic Acid Level 16.51 *H 0.50-2.00 MMOL/L Calcium Level 9.4 8.5-10.1 MG/DL Magnesium Level 2.5 H 1.8-2.4 MG/DL Total Bilirubin 0.2 0.1-1.0 MG/DL Aspartate Amino Transf (AST/SGOT) 38 H 5-34 U/L Alanine Aminotransferase (ALT/SGPT) 42 0-55 U/L Alkaline Phosphatase 121 40-136 U/L Total Creatine Kinase 106 29-168 U/L Creatine Kinase MB 1.3 <6.6 NG/ML Troponin I < 0.30 <0.30 NG/ML B-Type Natriuretic Peptide 40.0 <100.0 PG/ML Total Protein 7.9 6.4-8.2 GM/DL Albumin 4.0 3.2-4.5 GM/DL TSH [place] Testing 4.10 0.35-4.94 UIU/ML Serum Alcohol < 10 <10 MG/DL Urine Color YELLOW Urine Clarity CLEAR Urine pH 6 5-9 Urine Specific [place] 1.020 1.016-1.022 Urine Protein 3+ H NEGATIVE Urine Glucose (UA) NEGATIVE NEGATIVE Urine Ketones 1+ H NEGATIVE Urine Nitrite NEGATIVE NEGATIVE Urine Bilirubin NEGATIVE NEGATIVE Urine Urobilinogen NORMAL NORMAL MG/DL Urine Leukocyte Esterase NEGATIVE NEGATIVE Urine RBC (Auto) 1+ H NEGATIVE Urine RBC RARE /HPF Urine WBC NONE /HPF Urine Squamous Epithelial Cells NONE /HPF Urine Crystals NONE /LPF Urine Bacteria NEGATIVE /HPF Urine Casts PRESENT /LPF Urine Hyaline Casts 0-2 H /LPF Urine Mucus SMALL H /LPF Urine Culture Indicated NO Urine Opiates Screen NEGATIVE NEGATIVE Urine Oxycodone Screen NEGATIVE NEGATIVE Urine Methadone Screen NEGATIVE NEGATIVE Urine Propoxyphene Screen NEGATIVE NEGATIVE Urine Barbiturates Screen NEGATIVE NEGATIVE Ur Tricyclic Antidepressants Screen NEGATIVE NEGATIVE Urine Phencyclidine Screen NEGATIVE NEGATIVE Urine Amphetamines Screen NEGATIVE NEGATIVE Urine Methamphetamines Screen NEGATIVE NEGATIVE Urine Benzodiazepines Screen POSITIVE H NEGATIVE Urine Cocaine Screen NEGATIVE NEGATIVE Urine Cannabinoids Screen NEGATIVE NEGATIVE Test 08/31/17 01:00 08/31/17 04:18 08/31/17 05:40 08/31/17 11:38 Range/Units White Blood Count 24.4 H 20.9 H 4.3-11.0 10^3/uL Red Blood Count 4.50 4.67 4.35-5.85 10^6/uL Hemoglobin 13.6 14.1 11.5-16.0 G/DL Hematocrit 38 40 35-52 % Mean Corpuscular Volume 85 86 80-99 FL Mean Corpuscular Hemoglobin 30 30 25-34 PG Mean Corpuscular Hemoglobin Concent 36 35 32-36 G/DL Red Cell Distribution Width 14.8 H 15.2 H 10.0-14.5 % Platelet Count 279 256 130-400 10^3/uL Mean Platelet Volume 9.5 10.2 7.4-10.4 FL Neutrophils (%) (Auto) 88 H 90 H 42-75 % Lymphocytes (%) (Auto) 6 L 7 L 12-44 % Monocytes (%) (Auto) 6 2 0-12 % Eosinophils (%) (Auto) 0 1 0-10 % Basophils (%) (Auto) 0 0 0-10 % Neutrophils # (Auto) 21.4 H 18.8 H 1.8-7.8 X 10^3 Lymphocytes # (Auto) 1.6 1.4 1.0-4.0 X 10^3 Monocytes # (Auto) 1.4 H 0.5 0.0-1.0 X 10^3 Eosinophils # (Auto) 0.0 0.2 0.0-0.3 10^3/uL Basophils # (Auto) 0.0 0.0 0.0-0.1 10^3/uL Sodium Level 145 143 135-145 MMOL/L Potassium Level 3.6 4.2 3.6-5.0 MMOL/L Chloride Level 107 107 98-107 MMOL/L Carbon Dioxide Level 24 21 21-32 MMOL/L Anion Gap 14 15 H 5-14 MMOL/L Blood Urea Nitrogen 9 9 7-18 MG/DL Creatinine 0.77 0.76 0.60-1.30 MG/DL Estimat Glomerular Filtration Rate > 60 > 60 BUN/Creatinine Ratio 12 12 Glucose Level 106 H 116 H 70-105 MG/DL Lactic Acid Level 3.58 *H 0.50-2.00 MMOL/L Calcium Level 8.1 L 8.1 L 8.5-10.1 MG/DL Blood Gas Puncture Site R RAD Blood Gas Patient Temperature 96.5 Arterial Blood pH 7.36 L 7.37-7.43 Arterial Blood Partial Pressure CO2 46 H 35-45 MMHG Arterial Blood Partial Pressure O2 79 79-93 MMHG Arterial Blood HCO3 26 23-27 MMOL/L Arterial Blood Total CO2 27.0 21.0-31.0 MMOL/L Arterial Blood Oxygen Saturation 97 94-100 % Arterial Blood Base Excess 0.5 -2.5-2.5 MMOL/L Don Test YES-POS Blood Gas Ventilator Setting YES Blood Gas Inspired Oxygen 70% FIO2 Phosphorus Level 2.2 L 2.3-4.7 MG/DL Magnesium Level 2.0 1.8-2.4 MG/DL Total Bilirubin 0.2 0.1-1.0 MG/DL Aspartate Amino Transf (AST/SGOT) 37 H 5-34 U/L Alanine Aminotransferase (ALT/SGPT) 37 0-55 U/L Alkaline Phosphatase 95 40-136 U/L Total Protein 6.5 6.4-8.2 GM/DL Albumin 3.3 3.2-4.5 GM/DL Glucometer 98 70-110 MG/DL Test 08/31/17 17:20 08/31/17 23:17 09/01/17 04:05 09/01/17 05:00 Range/Units Glucometer 98 112 H 70-110 MG/DL Blood Gas Puncture Site R RAD Blood Gas Patient Temperature 97.1 Arterial Blood pH 7.37 7.37-7.43 Arterial Blood Partial Pressure CO2 44 35-45 MMHG Arterial Blood Partial Pressure O2 67 L 79-93 MMHG Arterial Blood HCO3 25 23-27 MMOL/L Arterial Blood Total CO2 26.3 21.0-31.0 MMOL/L Arterial Blood Oxygen Saturation 95 94-100 % Arterial Blood Base Excess 0.1 -2.5-2.5 MMOL/L Don Test YES-POS Blood Gas Ventilator Setting YES Blood Gas Inspired Oxygen 24% Sodium Level 144 135-145 MMOL/L Potassium Level 4.6 3.6-5.0 MMOL/L Chloride Level 113 H 98-107 MMOL/L Carbon Dioxide Level 17 L 21-32 MMOL/L Anion Gap 14 5-14 MMOL/L Blood Urea Nitrogen 8 7-18 MG/DL Creatinine 0.61 0.60-1.30 MG/DL Estimat Glomerular Filtration Rate > 60 BUN/Creatinine Ratio 13 Glucose Level 93 70-105 MG/DL Calcium Level 8.0 L 8.5-10.1 MG/DL Phosphorus Level 2.9 2.3-4.7 MG/DL Magnesium Level 2.4 1.8-2.4 MG/DL Test 09/01/17 06:30 Range/Units Micro Results Microbiology 08/30/17 Blood Culture - Preliminary, Resulted No growth 08/30/17 Blood Culture - Preliminary, Resulted No growth My Orders Orders - TEODORA ROCA DO Saline Lock/Iv-Start (08/30/17 21:53) Ekg Tracing (08/30/17 21:53) Catheter(Urinary) Insert & Ass 03,15 (08/30/17 21:53) O2 (08/30/17 21:53) Monitor-Rhythm Ecg Trace Only (08/30/17 21:53) Ct Head/Cervical Spine Wo (08/30/17 21:53) Alcohol (08/30/17 21:53) BNP (08/30/17 21:53) Cbc With Automated Diff (08/30/17 21:53) Comprehensive Metabolic Panel (08/30/17 21:53) Creatine Kinase (08/30/17 21:53) Creatine Kinase Mb (08/30/17 21:53) Drug Screen Stat (Urine) (08/30/17 21:53) Lactic Acid Analyzer (08/30/17 21:53) Magnesium (08/30/17 21:53) Protime With Inr (08/30/17 21:53) Partial Thromboplastin Time (08/30/17 21:53) Thyroid Analyzer (08/30/17 21:53) Troponin I (08/30/17 21:53) Ua Culture If Indicated (08/30/17 21:53) Chest 1 View, Ap/Pa Only (08/30/17 21:53) Pelvis (08/30/17 21:53) Saline Lock/Iv-Start (08/30/17 21:53) Ns Iv 1000 Ml (Sodium Chloride 0.9%) (08/30/17 21:53) Accucheck Stat ONCE (08/30/17 21:53) Arterial Blood Gas (08/30/17 22:03) Lorazepam Injection (Ativan Injection) (08/30/17 22:18) Propofol Drip (Icu) (Diprivan Drip (Icu) (08/30/17 22:28) Succinylcholine Injection (Succinylcholi (08/30/17 22:45) Rocuronium Injection (Zemuron Injection) (08/30/17 22:45) Propofol Drip (Icu) (Diprivan Drip (Icu) (08/30/17 22:45) Lorazepam Injection (Ativan Injection) (08/30/17 22:45) Sodium Bicarbonate 8.4% Syr (Sodium Bica (08/30/17 22:45) Ng Tube Insert & Assessment (08/30/17 22:44) Manual Differential (08/30/17 22:25) Arterial Blood Gas (08/30/17 22:54) Piperacillin Sodium/Tazobactam (Zosyn Vi (08/30/17 23:30) Levetiracetam Injection (Keppra Injectio (08/31/17 09:00) Levetiracetam Injection (Keppra Injectio (08/30/17 23:31) Saline Lock/Iv-Start (08/30/17 23:57) Ns Iv 1000 Ml (Sodium Chloride 0.9%) (08/30/17 23:57) Ns Iv 1000 Ml (Sodium Chloride 0.9%) (08/30/17 23:56) Metoprolol Tartrate Injection (Lopressor (09/01/17 06:15) Medications Given in ED Vital Signs/I&O Vital Sign - Last 12Hours 08/31/17 08/31/17 08/31/17 08/31/17 19:00 19:36 20:00 20:00 Temp 98.5 Pulse 86 86 84 Resp 20 19 B/P (MAP) 149/79 (102) 122/75 (91) Pulse Ox 91 96 95 O2 Delivery Mechanical Ventilator Mechanical Ventilator Mechanical Ventilator O2 Flow Rate 30.00 30.00 30.00 08/31/17 08/31/17 08/31/17 08/31/17 20:40 20:43 21:00 22:00 Pulse 80 81 79 Resp 20 19 20 B/P (MAP) 138/90 146/95 (112) 147/83 (104) Pulse Ox 98 100 98 O2 Delivery Mechanical Ventilator Mechanical Ventilator O2 Flow Rate 30.00 30.00 FiO2 30 08/31/17 08/31/17 08/31/17 08/31/17 22:37 23:00 23:09 23:12 Temp 97.3 Pulse 75 77 Resp 20 19 B/P (MAP) 144/91 (108) 144/91 Pulse Ox 98 96 O2 Delivery Mechanical Ventilator Mechanical Ventilator Mechanical Ventilator O2 Flow Rate 30.00 24.00 24.00 FiO2 30 09/01/17 09/01/17 09/01/17 09/01/17 00:00 00:00 00:31 01:00 Pulse 76 73 71 Resp 20 20 20 B/P (MAP) 131/82 (98) 128/90 (103) Pulse Ox 96 96 97 97 O2 Delivery Mechanical Ventilator Mechanical Ventilator Mechanical Ventilator O2 Flow Rate 24.00 24.00 24.00 FiO2 24 09/01/17 09/01/17 09/01/17 09/01/17 01:00 01:43 02:00 02:35 Pulse 71 70 69 Resp 19 20 B/P (MAP) 132/97 136/84 (101) Pulse Ox 98 97 O2 Delivery Mechanical Ventilator O2 Flow Rate 24.00 FiO2 24 09/01/17 09/01/17 09/01/17 09/01/17 03:00 04:00 04:00 04:00 Temp 97.1 Pulse 72 83 Resp 19 15 B/P (MAP) 129/81 (97) 144/92 (109) Pulse Ox 96 96 96 O2 Delivery Mechanical Ventilator Mechanical Ventilator Mechanical Ventilator O2 Flow Rate 24.00 24.00 24.00 09/01/17 09/01/17 09/01/17 09/01/17 04:10 04:20 04:25 05:00 Pulse 79 77 84 78 Resp 20 26 20 B/P (MAP) 203/94 187/110 (135) Pulse Ox 96 99 94 O2 Delivery Mechanical Ventilator O2 Flow Rate 24.00 FiO2 24 24 09/01/17 09/01/17 06:00 06:21 Pulse 78 77 Resp 17 20 B/P (MAP) 158/89 (112) Pulse Ox 94 95 O2 Delivery Mechanical Ventilator O2 Flow Rate 24.00 FiO2 24 Capillary Refill : Less Than 3 Seconds Blood Pressure Mean: 107 Progress Note : Progress Note PT HAD BACK TO BACK SEIZURES IN CT DEPT--RN REPORTS THAT PT HAD BRADYCARDIA DOWN TO 40'S JUST PRIOR TO SEIZURES-FIRST ONE LASTED APPROXIMATELY 1 MINUTE, THE SECOND ONE LASTED 15-20 SECONDS PT INCONTINENT OF URINE AND STOOL WITH BOTH SEIZURES PT HYPOXIC INTO 70'S AND CYANOTIC POST SEIZURES PT GIVEN ATIVAN 4 MG IV AND NO FURTHER SEIZURES NOTED--GIVEN PRIOR TO OBTAINING URINE SPECIMEN FROM PT. O2 SATS UP TO 90'S ON O2/15L NRB PT ELECTIVELY INTUBATED BY ANESTHESIA FOR RECURRENT SEIZURES AND PERSISTENT HYPOXIA --PT HAD NO RETURN TO NORMAL MENTATION IN BETWEEN SEIZURES. NO EVIDENCE OF ASPIRATION ON INTUBATION PT STARTED ON KEPPRA NO FURTHER SEIZURE ACTIVITY 2333--PT HAD BRIEF EPISODE OF ASYSTOLE AND PULSELESSNESS--APPROXIMATELY 5-6 CHEST COMPRESSIONS DONE WITH ROSC. ACCUCHECK NOT OBTAINED IN ER, DUE TO MACHINE MALFUNCTION OF BOTH ER AND LAB'S MACHINES ECG Initial ECG Impression Time: 21:50 Initial ECG Rate: 105 Initial ECG Rhythm: S.Tach Initial ECG Impression: Nonspecific Changes Initial ECG Comparisson: Unchanged Diagnostic Imaging Comments CXR--ET TUBE WITH PROPER PLACEMENT, POSSIBLE RIGHT SIDED PNEUMONIA--PENDING RADIOLOGIST REVIEW PELVIS--NO ACUTE PROCESS, PENDING RADIOLOGIST REVIEW CT HEAD/CERVICAL SPINE--NO ACUTE PROCESS, PER [facility] VIA FAX @ [phone] Reviewed: Reviewed by Pa Critical Care Note Critical Care Start Time: 21:43 Total Time (minutes) 60 Departure Communication (Admissions) Family Conversation DISCUSSED PT'S CONDITION WITH DAUGHTER AND SON, AND ADVISED THEM OF GRAVE/ CRITICAL CONDITION OF PT, AND POSSIBLE CAUSES. Progress Notes 0--ALEXI GALLEGO CRNA, NOTIFIED IN PERSON OF NEED FOR ELECTIVE INTUBATION 2224--ALEXI HERE IN ER FOR INTUBATION. PERFORMED WITHOUT DIFFICULTY. 2324--SPOKE WITH DR. WIGGINS, ACCEPTS PT FOR ADMIT. WILL CONSULT CARDIOLOGY AND PULMONOLOGY. ADVISES TO START KEPPRA 2329--MESSAGE LEFT ON DR. VAUGHAN'S CELL PHONE 2333--PT HAD VERY BRIEF EPISODE OF ASYSTOLE AND PULSELESSNESS--ROSC AFTER 5-6 CHEST COMPRESSIONS DONE 2334--DR. VAUGHAN HERE TO SEE PT. NO ADDITIONAL ORDERS GIVEN. Impression Impression: Primary Impression: S/P CODE BLUE Additional Impressions: Recurrent seizures Hypoxia TRANSIENT BRADYCARDIA PRIOR TO SEIZURES BRIEF EPISODE OF ASYSTOLE WITH ROSC IN ER Acidosis Leukocytosis POSSIBLE SEPSIS POSSIBLE RIGHT SIDED PNEUMONIA POSSIBLE WITHDRAWL SEIZURES FROM ETOH AND/OR BENZO'S AND/OR OPIATES Acute respiratory failure with hypoxia HISTORY OF POLYSUBSTANCE ABUSE AND OVERDOSES Morbid obesity Disposition: ADMITTED INPATIENT Condition: Critical Admissions Decision to Admit Reason: Admit from ER (General) Decision to Admit/Date: Aug 30, 2017 Time/Decision to Admit Time: 23:30 Departure-Patient Inst. Referrals: HARVEY LINDSEY DO (PCP/Family) Primary Care Physician TEODORA ROCA DO Aug 30, 2017 23:04
[2017-08-30 23:19] LABS: ABG BASE EXCESS -2.8 MMOL/L (-2.5-2.5); ABG OXYGEN SATURATION 99 % (94-100); ABG PCO2 61 MMHG (35-45); ABG PO2 175 MMHG (79-93); ABG TCO2 25.9 MMOL/L (21.0-31.0)
[2017-08-30 23:20] LABS: CREATINE KINASE MB 1.3 NG/ML (<6.6)
[2017-08-30 23:22] LABS: ABG PH 7.22 (7.37-7.43); ALLENS TEST POSITIVE; INSPIRED O2 100%; PATIENT TEMP 98.3; VENTILATOR YES
[2017-08-30 23:25] LABS: BILIRUBIN,URINE NEGATIVE (NEGATIVE); CLARITY,URINE CLEAR; COLOR,URINE YELLOW; GLUCOSE, URINE (UA) NEGATIVE (NEGATIVE); KETONES,URINE 1+ (NEGATIVE); LEUKOCYTE ESTERASE ,URINE NEGATIVE (NEGATIVE); NITRITE,URINE NEGATIVE (NEGATIVE); PH,URINE 6 (5-9); PROTEIN,URINE 3+ (NEGATIVE); UROBILINOGEN,URINE NORMAL (NORMAL)
[2017-08-30 23:28] VITALS: BP 135/73
[2017-08-30] MEDS ORDERED: PIPERACILLIN SODIUM/TAZOBACTAM 4.5 GM in NS (IVPB) 100 ML IV ONE (23:30)
[2017-08-30] MEDS ORDERED: LEVETIRACETAM 500 MG/5 ML (KEPPRA) VIAL IV ONE (23:31)
[2017-08-30 23:38] LABS: AMPHETAMINE SCREEN, URINE NEGATIVE (NEGATIVE); BARBITURATE SCREEN URINE NEGATIVE (NEGATIVE); BENZODIAZEPINES SCREEN URINE POSITIVE (NEGATIVE); CANNABINOID SCREEN, URINE NEGATIVE (NEGATIVE); COCAINE SCREEN URINE NEGATIVE (NEGATIVE); METHADONE STAT NEGATIVE (NEGATIVE); METHAMPHETAMINE SCREEN URINE S NEGATIVE (NEGATIVE); OPIATE SCREEN URINE NEGATIVE (NEGATIVE); OXYCODONE STAT NEGATIVE (NEGATIVE); PROPOXYPHENE STAT NEGATIVE (NEGATIVE); TRICYCLIC ANTIDEPRESSANTS SCRE NEGATIVE (NEGATIVE)
[2017-08-30] MEDS: LEVETIRACETAM INJECTION 1,000 MG in NS (IVPB) 100 ML IV SCH (23:39)
[2017-08-30 23:40] VITALS: BP 101/55
[2017-08-30 23:41] LABS: BACTERIA,URINE NEGATIVE /HPF; HYALINE CASTS, URINE 0-2 /LPF; RBC,URINE RARE /HPF
[2017-08-30] MEDS ORDERED: NS IV 1000 ML 1,000 ML ONE (23:56)
[2017-08-31] VITALS (29 sets, daily range): BP systolic 109–153; BP diastolic 65–95
[2017-08-31] MEDS ORDERED: RT-ALBUTEROL/IPRATROPIUM 3 ML (DUONEB) VIAL ONE (00:33)
[2017-08-31] MEDS: NS IV 1000 ML 1,000 ML IV SCH ×4 (00:53→23:08)
[2017-08-31 01:14] LABS: BASOPHILS % (AUTO) 0 % (0-10); EOSINOPHILS % (AUTO) 0 % (0-10); HEMATOCRIT 38 % (35-52); HEMOGLOBIN 13.6 G/DL (11.5-16.0); LYMPHOCYTES # (AUTO) 1.6 X 10^3 (1.0-4.0); LYMPHOCYTES % (AUTO) 6 % (12-44); MEAN CORPUSCULAR HEMOGLOBIN 30 PG (25-34); MEAN CORPUSCULAR HGB CONC 36 G/DL (32-36); MEAN CORPUSCULAR VOLUME 85 FL (80-99); MEAN PLATELET VOLUME 9.5 FL (7.4-10.4); MONOCYTES # (AUTO) 1.4 X 10^3 (0.0-1.0); MONOCYTES % (AUTO) 6 % (0-12); NEUTROPHILS # (AUTO) 21.4 X 10^3 (1.8-7.8); NEUTROPHILS % (AUTO) 88 % (42-75); PLATELET COUNT 279 10^3/uL (130-400); RED CELL DISTRIBUTION WIDTH 14.8 % (10.0-14.5); WHITE BLOOD COUNT 24.4 10^3/uL (4.3-11.0)
[2017-08-31 01:37] LABS: BUN/CREATININE RATIO 12; CALCIUM 8.1 MG/DL (8.5-10.1); CARBON DIOXIDE 24 MMOL/L (21-32); CHLORIDE 107 MMOL/L (98-107); CREATININE SERUM 0.77 MG/DL (0.60-1.30); GFR ESTIMATED > 60; GLUCOSE 106 MG/DL (70-105); POTASSIUM 3.6 MMOL/L (3.6-5.0); SODIUM 145 MMOL/L (135-145)
[2017-08-31] MEDS ORDERED: fentaNYL INJECTION 100 MCG/2 ML AMP IVP ONE (02:00)
[2017-08-31] MEDS ORDERED: LORazepam INJ 2 MG/ML (ATIVAN) VIAL IVP ONE (02:00)
[2017-08-31] MEDS: PROPOFOL DRIP (ICU) 100 ML IV SCH ×7 (02:01→23:09)
[2017-08-31] MEDS: AZITHROMYCIN 500 MG/NS 250 ML IVPB IV SCH ×2 (02:01)
[2017-08-31] MEDS: RT-ALBUTEROL/IPRATROPIUM 3 ML (DUONEB) VIAL INH SCH ×7 (02:23→22:37)
[2017-08-31 04:26] LABS: ABG BASE EXCESS 0.5 MMOL/L (-2.5-2.5); ABG OXYGEN SATURATION 97 % (94-100); ABG PCO2 46 MMHG (35-45); ABG PH 7.36 (7.37-7.43); ABG PO2 79 MMHG (79-93)
[2017-08-31 04:37] LABS: ALLENS TEST YES-POS; INSPIRED O2 70% FIO2; PATIENT TEMP 96.5; VENTILATOR YES
[2017-08-31 06:08] LABS: BASOPHILS % (AUTO) 0 % (0-10); EOSINOPHILS # (AUTO) 0.2 10^3/uL (0.0-0.3); EOSINOPHILS % (AUTO) 1 % (0-10); HEMATOCRIT 40 % (35-52); HEMOGLOBIN 14.1 G/DL (11.5-16.0); LYMPHOCYTES # (AUTO) 1.4 X 10^3 (1.0-4.0); LYMPHOCYTES % (AUTO) 7 % (12-44); MEAN CORPUSCULAR HEMOGLOBIN 30 PG (25-34); MEAN CORPUSCULAR HGB CONC 35 G/DL (32-36); MEAN CORPUSCULAR VOLUME 86 FL (80-99); MEAN PLATELET VOLUME 10.2 FL (7.4-10.4); MONOCYTES # (AUTO) 0.5 X 10^3 (0.0-1.0); MONOCYTES % (AUTO) 2 % (0-12); NEUTROPHILS # (AUTO) 18.8 X 10^3 (1.8-7.8); NEUTROPHILS % (AUTO) 90 % (42-75); PLATELET COUNT 256 10^3/uL (130-400); RED BLOOD COUNT 4.67 10^6/uL (4.35-5.85); RED CELL DISTRIBUTION WIDTH 15.2 % (10.0-14.5); WHITE BLOOD COUNT 20.9 10^3/uL (4.3-11.0)
[2017-08-31] MEDS: PIPERACILLIN/TAZOBACTAM 4.5 GM/NS100 ML IVPB IV SCH ×6 (06:12→20:44)
[2017-08-31 06:28] LABS: ALANINE AMINOTRANSFERASE 37 U/L (0-55); ALBUMIN 3.3 GM/DL (3.2-4.5); ALKALINE PHOSPHATASE 95 U/L (40-136); BILIRUBIN,TOTAL 0.2 MG/DL (0.1-1.0); BUN/CREATININE RATIO 12; CALCIUM 8.1 MG/DL (8.5-10.1); CARBON DIOXIDE 21 MMOL/L (21-32); CHLORIDE 107 MMOL/L (98-107); CREATININE SERUM 0.76 MG/DL (0.60-1.30); GFR ESTIMATED > 60; GLUCOSE 116 MG/DL (70-105); PHOSPHORUS 2.2 MG/DL (2.3-4.7); POTASSIUM 4.2 MMOL/L (3.6-5.0); SODIUM 143 MMOL/L (135-145); TOTAL PROTEIN 6.5 GM/DL (6.4-8.2)
[2017-08-31] MEDS: inSUlin (REGULAR) HUMAN 1 UNIT/0.01 ML (CHARGE PER UNIT) SC SCH ×4 (06:34→23:17)
--- NOTE | 2017-08-31 07:55 | Diagnostic Imaging Report ---
PROCEDURE: CT head and CT cervical spine without contrast. TECHNIQUE: Multiple contiguous axial images were obtained through the brain and cervical spine without the use of intravenous contrast. Sagittal and coronal reformations through the cervical spine were then performed. INDICATION: Seizure and unresponsiveness. Comparison made with prior CT head from 08/22/2015. Findings: Ventricles and sulci are within normal limits. There is no hydrocephalus. There is no midline shift. There is intracranial mass, hemorrhage or extra-axial fluid collection. There is no CT evidence of acute CVA. Calvarium is intact. Sinuses and mastoid air cells are clear. CT cervical spine is significantly limited due to motion as well as as due to patient's body habitus. The vertebral body heights appear to be well-maintained. There is no obvious displaced fracture appreciated. There is not obvious listhesis. There is some nonspecific straightening of the normal cervical lordosis. There appears to be some degenerative disc disease at C5-6. Prevertebral soft tissues are somewhat thickened superiorly. Lung apices are clear. IMPRESSION: No acute intracranial abnormality. Markedly limited evaluation of cervical spine due to motion and body habitus. While there is no definitive evidence of fracture or traumatic subluxation, there is some thickening of the upper prevertebral soft tissues. This can be associated with ligamentous injury. Recommend clinical correlation and if warranted followup with MRI. These findings were conveyed directly to the ER physician in [place]. Dictated by: Dictated on workstation # [id number]
--- NOTE | 2017-08-31 08:27 | Diagnostic Imaging Report ---
INDICATION: Intubation. TECHNIQUE: Single view chest 10:43 PM. CORRELATION STUDY: 01/08/2017 FINDINGS: Endotracheal tube has been placed tip superimposed over the trachea just below the clavicles above the javier. Heart size enlarged and mediastinum prominent likely accentuated by technique. Areas of atelectasis particularly of the right infrahilar region. IMPRESSION: 1. Endotracheal tube is in place tip projects over the low to mid trachea. Dictated by: Dictated on workstation # [id number]
[2017-08-31] MEDS: fentaNYL INJECTION 100 MCG/2 ML AMP IV PRN ×5 (08:59→18:13)
[2017-08-31] MEDS: LEVETIRACETAM INJECTION 1,000 MG in NS (IVPB) 100 ML IV SCH ×2 (09:09→20:09)
--- NOTE | 2017-08-31 09:16 | Diagnostic Imaging Report ---
INDICATION: Seizure activity, unwitnessed fall TECHNIQUE: AP pelvis 10:47 PM CORRELATION STUDY: None FINDINGS: The pelvis demonstrates no evidence for acute fracture. The pectineal lines and obturator rings are maintained. Pubic symphysis and SI joints are unremarkable. Hips unremarkable. Metallic coils over the lower pelvis likely owing to prior hernia repair. IMPRESSION: Negative examination of the pelvis. Dictated by: Dictated on workstation # [id number]
--- NOTE | 2017-08-31 09:25 | Pulmonary Consultation ---
History of Present Illness History of Present Illness Date of Consultation 08/31/17 09:20 Time Seen by Provider: 09:20 Date of Admission History of Present Illness 47yo with hx of polysubstance abuse, alcohol abuse, seizures and frequent hospitalizations presented to ED s/p CODE BLUE. When EMS arrived Fire Dept was doing CPR pt did have ROSC during CPR. Pt had seizure in CT scanner yesterday. She is now in ICU on Keppra and ventilator. I am consulted for ICU management. Allergies and Home Medications Allergies Coded Allergies: No Known Drug Allergies (Unverified , 01/01/17) Home Medications Albuterol Sulfate 18 Gm Hfa.aer.ad, 2 PUFF IH Q4H PRN for SHORTNESS OF BREATH, ( Reported) Alprazolam 0.25 Mg Tablet, 0.25 MG PO TID PRN for ANXIETY, (Reported) Amitriptyline HCl 25 Mg Tablet, 25 MG PO DAILY, (Reported) Amlodipine Besylate 5 Mg Tablet, 5 MG PO DAILY, (Reported) Duloxetine HCl 60 Mg Capsule.dr, 60 MG PO DAILY, (Reported) Gabapentin 600 Mg Tablet, 600 MG PO QID, (Reported) Gabapentin 800 Mg Tablet, 800 MG PO Q8H PRN for PAIN, (Reported) Lisinopril 10 Mg Tablet, 10 MG PO DAILY, (Reported) LAST FILLED 08/02/17 #30 Quetiapine Fumarate 100 Mg Tablet, 100 MG PO HS, (Reported) Tramadol HCl 50 Mg Tablet, 50 MG PO TID PRN for PAIN-MODERATE, (Reported) Past Akmldkz-Xviltg-Adwmry Hx Patient Social History Alcohol Use: Regular Use Number of Drinks Today: FF Alcohol Beverage of Choice: Vodka Recreational Drug Use: Yes Drug of Choice: METH, THC, PILLS-OPIATES/BENZO'S Smoking Status: Current Everyday Smoker Type Used: Cigarettes 2nd Hand Smoke Exposure: Yes Recent Foreign Travel: No Contact w/Someone Who Travel: No Recent Infectious Disease Expo: No Recent Hopitalizations: No Immunizations Up To Date Tetanus Booster (TDap): Unknown Date of Pneumonia Vaccine: Apr 26, 2015 Date of Influenza Vaccine: Jul 10, 2017 Seasonal Allergies Seasonal Allergies: No Surgeries History of Surgeries: Yes Surgeries: Gallbladder, Hysterectomy, Orthopedic, Renal, Tubal Ligation Respiratory History of Respiratory Disorde: Yes (HX OF P.E.--OFF ANTICOAGULANTS FOR OVER A YEAR, PER PT ON 05/23/17) Respiratory Disorders: Pneumonia, Chronic Bronchitis, Pulmonary Embolism Currently Using CPAP: No Currently Using BIPAP: No Cardiovascular History of Cardiac Disorders: Yes Cardiac Disorders: Hypertension Neurological History of Neurological Disord: Yes (PSUEDOSEIZURES) Neurological Disorders: Headaches /Migraines, Seizure Disorder 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 System Hx 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 Disorders: No Sexually Transmitted Disease: No HIV/AIDS: No Female 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 Disorders: Denies [employer] History: Hysterectomy Genitourinary History of Genitourinary Disor: Yes (URETERAL STENT) Genitourinary Disorders: Kidney Infection, Kidney Stones, UTI-Chronic Gastrointestinal History of Gastrointestinal Di: Yes Gastrointestinal Disorders: Gall Bladder Disease Musculoskeletal History of Musculoskeletal Dis: Yes (MOST ARE SELF-REPORTED, WITH [place] MEDICAL DOCUMENTATION OF THESE CONDITIONS) Musculoskeletal Disorders: Degenerate Disk Disease, Arthritis, Fibromyalgia, Back Injury, Scoliosis, Chronic Back Pain Endocrine History of Endocrine Disorders: Yes (MORBID OBESITY) HEENT History of HEENT Disorders: Yes (TMJ PROBLEMS, PER PT. EXTENSIVE DENTAL CARIES/ MULTIPLE MISSING TEETH) Cancer History of Cancer: No Psychosocial History of Psychiatric Problem: Yes (MULTIPLE OVERDOSES-INTENTIONAL SUICIDE ATTEMPT, AND SOME NON-SUICIDAL) Behavioral Health Disorders: Pseudo Seizures, Sleep Difficulties, Anxiety, Suicide Attempts, Depression Integumentary History of Skin or Integumenta: No Blood Transfusions History of Blood Disorders: No Family Medical History Family Medial History: Alcoholism 19 FATHER (grandfather) Alzheimer's disease 19 MOTHER (grandmother) Arthritis 19 FATHER Cardiovascular disease 19 FATHER 19 MOTHER Cataracts 19 MOTHER Coronary thrombosis 19 FATHER Dementia 19 MOTHER (grandparents) Diabetes mellitus 19 MOTHER Drug abuse 19 FATHER Glaucoma 19 FATHER (grandfather) Headache disorder 19 FATHER Hypercholesterolemia 19 FATHER Hypertension 19 FATHER Myocardial infarction 19 FATHER Parkinson's disease 19 MOTHER Prostate cancer 19 MOTHER (uncle brother of mother) Psychosocial problem 19 FATHER Respiratory disorder 19 FATHER (grandfather) Seizure disorder 19 MOTHER No Family History of: AIDS Abdominal aortic aneurysm Vargas's disease Aphasia Asthma Cancer of mouth Colon cancer Completed stroke Congenital disease Congenital heart disease Cystic fibrosis Deafness or hearing loss Dysphasia Fibrocystic disease of breast Gastroenteritis Infertility Kidney disease Neoplasm Severe allergy Thyroid disease Tuberculosis Visual disorder Review of Systems Time Seen by Provider: 09:45 Exam Exam Vital Signs Date Time Temp Pulse Resp B/P (MAP) Pulse Ox O2 Delivery O2 Flow Rate FiO2 08/31/17 08:11 75 20 99 70 08/31/17 07:09 69 20 99 70 08/31/17 07:00 69 08/31/17 06:17 71 08/31/17 06:00 73 20 130/79 (96) 98 Mechanical Ventilator 70.00 08/31/17 05:00 66 27 145/83 (103) 97 Mechanical Ventilator 70.00 08/31/17 04:00 96.5 69 20 129/83 (98) 97 Mechanical Ventilator 70.00 08/31/17 04:00 97 Mechanical Ventilator 70.00 08/31/17 03:59 67 20 97 70 08/31/17 03:00 72 25 121/82 (95) 97 Mechanical Ventilator 70.00 08/31/17 02:24 74 20 97 70 08/31/17 02:01 71 08/31/17 02:00 71 20 122/75 (91) 97 Mechanical Ventilator 70.00 08/31/17 01:09 89 90 70 08/31/17 01:00 91 08/31/17 01:00 90 28 120/74 (89) 97 Mechanical Ventilator 70.00 08/31/17 00:15 96.2 Mechanical Ventilator 70.00 08/31/17 00:15 Mechanical Ventilator 70 08/30/17 23:47 98.1 92 20 90 Mechanical Ventilator 08/30/17 23:40 89 20 90 100 08/30/17 23:28 94 15 100 100 08/30/17 22:45 98.3 105 30 134/94 100 Non Rebreather 15.00 08/30/17 22:34 98.3 08/30/17 21:42 30 Non Rebreather 15.00 08/30/17 21:42 100 Non Rebreather 15.00 08/30/17 21:42 98.3 105 30 134/94 (107) 100 Non Rebreather 15.00 I & O 08/31/17 07:00 Intake Total 2660 ml Output Total 1375 ml Balance 1285 ml General Appearance: Obese, Other (MALODOROUS, DIRTY, ) HEENT: Normal ENT Inspection, Pharynx Normal Neck: Full Range of Motion, Normal Inspection, Non Tender, Supple Respiratory: Chest Non Tender, No Accessory Muscle Use, No Respiratory Distress , Crackles, Decreased Breath Sounds Cardiovascular: Regular Rate, Rhythm, No Edema Capillary Refill: Less Than 3 Seconds Gastrointestinal: normal bowel sounds, non tender Extremity: Normal Capillary Refill, Normal Inspection Neurologic/Psychiatric: Alert, Oriented x3 Skin: Normal Color, Warm/Dry Lymphatic: No Adenopathy Results Lab Laboratory Tests 08/30/17 22:25 08/31/17 01:00 08/31/17 05:40 Assessment/Plan Assessment/Plan S/P CODE BLUE Acute respiratory failure -Continue ventilator therapy Seizures -Keppra Lactic metabolic acidosis -IVF Hx of polysubstance abuse -monitor 255 Clinical Quality Measures DVT/VTE Risk/Contraindication: Risk Factor Score Per Nursin RFS Level Per Nursing on Admit: 4+=Very High BHARGAV ROUSSEAU DO Aug 31, 2017 09:25
--- NOTE | 2017-08-31 10:15 | Diagnostic Imaging Report ---
INDICATION: Respiratory difficulty. Comparison made with prior examination from 08/30/2017. FINDINGS: There is cardiomegaly. There may be some minimal venous congestion. There is some left basilar atelectasis and/or pneumonitis and a small left pleural effusion. There is no pneumothorax. Mediastinum is unremarkable. IMPRESSION: Left basilar atelectasis and/or pneumonitis and small left pleural effusion. Cardiomegaly and mild venous congestion. Dictated by: Dictated on workstation # [id number]
--- NOTE | 2017-08-31 10:18 | Consultation-Cardiology ---
HPI-Cardiology Cardiology Consultation Date of Consultation 08/31/17 Date of Admission Time Seen by Provider: 10:12 Indication: respiratory failure, CODE BLUE HPI 47 years old lady with history of COPD, multi-substance abuse and alcohol abuse was in her usual state of health, found unresponsive at her home by her mother, EMS were called. Patient received chest compression. Improved and brought to the emergency room, during her stay in the emergency room she had episode of bradycardia with a heart rate in the 40s. She was intubated, had seizure activities during CT scan. Upon arrival to ICU she has been sedated, ventilator dependent, unable to provide any further history. No further arrhythmia was noted Home Medications & Allergies Allergies: Coded Allergies: No Known Drug Allergies (Unverified , 01/01/17) Home Medication List Reviewed: Yes OSJ-Eqjrwj-Njvdqn Hx Patient Social History Alcohol Use: Regular Use Recreational Drug Use: Yes Drug of Choice: METH, THC, PILLS-OPIATES/BENZO'S Smoking Status: Current Everyday Smoker Type Used: Cigarettes 2nd Hand Smoke Exposure: Yes Recent Foreign Travel: No Recent Infectious Disease Expo: No Recent Hopitalizations: No Physical Abuse Screen: No Sexual Abuse: No Immunizations Up To Date Tetanus Booster (TDap): Unknown Date of Pneumonia Vaccine: Apr 26, 2015 Date of Influenza Vaccine: Jul 10, 2017 Past Medical History past medical history as discussed below Family Medical History Family History: 19 FATHER Alcoholism (grandfather) Arthritis Cardiovascular disease Coronary thrombosis Drug abuse Glaucoma (grandfather) Headache disorder Hypercholesterolemia Hypertension Myocardial infarction Psychosocial problem Respiratory disorder (grandfather) 19 MOTHER Alzheimer's disease (grandmother) Cardiovascular disease Cataracts Dementia (grandparents) Diabetes mellitus Parkinson's disease Prostate cancer (uncle brother of mother) Seizure disorder Constitutional: other (sedated and intubated, unable to provide review of system at this point) Reviewed Test Results Reviewed Test Results Lab Laboratory Tests Test 08/30/17 22:00 08/30/17 22:25 08/30/17 23:05 08/30/17 23:19 Range/Units Blood Gas Puncture Site RIGHT RADIAL RIGHT RADIAL Blood Gas Patient Temperature 98.3 98.3 Arterial Blood pH 7.19 *L 7.22 *L 7.37-7.43 Arterial Blood Partial Pressure CO2 42 61 H 35-45 MMHG Arterial Blood Partial Pressure O2 81 175 H 79-93 MMHG Arterial Blood HCO3 16 *L 24 23-27 MMOL/L Arterial Blood Total CO2 17.1 L 25.9 21.0-31.0 MMOL/L Arterial Blood Oxygen Saturation 95 99 94-100 % Arterial Blood Base Excess -10.9 L -2.8 L -2.5-2.5 MMOL/L Don Test POSITIVE POSITIVE Blood Gas Ventilator Setting NO YES Blood Gas Inspired Oxygen 5L 100% White Blood Count 27.9 H 4.3-11.0 10^3/uL Red Blood Count 5.03 4.35-5.85 10^6/uL Hemoglobin 15.2 11.5-16.0 G/DL Hematocrit 44 35-52 % Mean Corpuscular Volume 88 80-99 FL Mean Corpuscular Hemoglobin 30 25-34 PG Mean Corpuscular Hemoglobin Concent 35 32-36 G/DL Red Cell Distribution Width 15.0 H 10.0-14.5 % Platelet Count 382 130-400 10^3/uL Mean Platelet Volume 9.8 7.4-10.4 FL Neutrophils (%) (Auto) 66 42-75 % Lymphocytes (%) (Auto) 28 12-44 % Monocytes (%) (Auto) 5 0-12 % Eosinophils (%) (Auto) 1 0-10 % Basophils (%) (Auto) 0 0-10 % Neutrophils # (Auto) 18.5 H 1.8-7.8 X 10^3 Lymphocytes # (Auto) 7.7 H 1.0-4.0 X 10^3 Monocytes # (Auto) 1.5 H 0.0-1.0 X 10^3 Eosinophils # (Auto) 0.2 0.0-0.3 10^3/uL Basophils # (Auto) 0.1 0.0-0.1 10^3/uL Neutrophils % (Manual) 58 % Lymphocytes % (Manual) 31 % Monocytes % (Manual) 5 % Eosinophils % (Manual) 2 % Basophils % (Manual) 0 % Band Neutrophils 4 % Blood Morphology Comment NORMAL Prothrombin Time 14.3 12.2-14.7 SEC INR Comment 1.1 0.8-1.4 Activated Partial Thromboplast Time 30 24-35 SEC Sodium Level 145 135-145 MMOL/L Potassium Level 3.5 L 3.6-5.0 MMOL/L Chloride Level 104 98-107 MMOL/L Carbon Dioxide Level 14 L 21-32 MMOL/L Anion Gap 27 H 5-14 MMOL/L Blood Urea Nitrogen 10 7-18 MG/DL Creatinine 0.99 0.60-1.30 MG/DL Estimat Glomerular Filtration Rate 60 BUN/Creatinine Ratio 10 Glucose Level 259 H 70-105 MG/DL Lactic Acid Level 16.51 *H 0.50-2.00 MMOL/L Calcium Level 9.4 8.5-10.1 MG/DL Magnesium Level 2.5 H 1.8-2.4 MG/DL Total Bilirubin 0.2 0.1-1.0 MG/DL Aspartate Amino Transf (AST/SGOT) 38 H 5-34 U/L Alanine Aminotransferase (ALT/SGPT) 42 0-55 U/L Alkaline Phosphatase 121 40-136 U/L Total Creatine Kinase 106 29-168 U/L Creatine Kinase MB 1.3 <6.6 NG/ML Troponin I < 0.30 <0.30 NG/ML B-Type Natriuretic Peptide 40.0 <100.0 PG/ML Total Protein 7.9 6.4-8.2 GM/DL Albumin 4.0 3.2-4.5 GM/DL TSH [place] Testing 4.10 0.35-4.94 UIU/ML Serum Alcohol < 10 <10 MG/DL Urine Color YELLOW Urine Clarity CLEAR Urine pH 6 5-9 Urine Specific [place] 1.020 1.016-1.022 Urine Protein 3+ H NEGATIVE Urine Glucose (UA) NEGATIVE NEGATIVE Urine Ketones 1+ H NEGATIVE Urine Nitrite NEGATIVE NEGATIVE Urine Bilirubin NEGATIVE NEGATIVE Urine Urobilinogen NORMAL NORMAL MG/DL Urine Leukocyte Esterase NEGATIVE NEGATIVE Urine RBC (Auto) 1+ H NEGATIVE Urine RBC RARE /HPF Urine WBC NONE /HPF Urine Squamous Epithelial Cells NONE /HPF Urine Crystals NONE /LPF Urine Bacteria NEGATIVE /HPF Urine Casts PRESENT /LPF Urine Hyaline Casts 0-2 H /LPF Urine Mucus SMALL H /LPF Urine Culture Indicated NO Urine Opiates Screen NEGATIVE NEGATIVE Urine Oxycodone Screen NEGATIVE NEGATIVE Urine Methadone Screen NEGATIVE NEGATIVE Urine Propoxyphene Screen NEGATIVE NEGATIVE Urine Barbiturates Screen NEGATIVE NEGATIVE Ur Tricyclic Antidepressants Screen NEGATIVE NEGATIVE Urine Phencyclidine Screen NEGATIVE NEGATIVE Urine Amphetamines Screen NEGATIVE NEGATIVE Urine Methamphetamines Screen NEGATIVE NEGATIVE Urine Benzodiazepines Screen POSITIVE H NEGATIVE Urine Cocaine Screen NEGATIVE NEGATIVE Urine Cannabinoids Screen NEGATIVE NEGATIVE Test 08/31/17 01:00 08/31/17 04:18 08/31/17 05:40 Range/Units White Blood Count 24.4 H 20.9 H 4.3-11.0 10^3/uL Red Blood Count 4.50 4.67 4.35-5.85 10^6/uL Hemoglobin 13.6 14.1 11.5-16.0 G/DL Hematocrit 38 40 35-52 % Mean Corpuscular Volume 85 86 80-99 FL Mean Corpuscular Hemoglobin 30 30 25-34 PG Mean Corpuscular Hemoglobin Concent 36 35 32-36 G/DL Red Cell Distribution Width 14.8 H 15.2 H 10.0-14.5 % Platelet Count 279 256 130-400 10^3/uL Mean Platelet Volume 9.5 10.2 7.4-10.4 FL Neutrophils (%) (Auto) 88 H 90 H 42-75 % Lymphocytes (%) (Auto) 6 L 7 L 12-44 % Monocytes (%) (Auto) 6 2 0-12 % Eosinophils (%) (Auto) 0 1 0-10 % Basophils (%) (Auto) 0 0 0-10 % Neutrophils # (Auto) 21.4 H 18.8 H 1.8-7.8 X 10^3 Lymphocytes # (Auto) 1.6 1.4 1.0-4.0 X 10^3 Monocytes # (Auto) 1.4 H 0.5 0.0-1.0 X 10^3 Eosinophils # (Auto) 0.0 0.2 0.0-0.3 10^3/uL Basophils # (Auto) 0.0 0.0 0.0-0.1 10^3/uL Sodium Level 145 143 135-145 MMOL/L Potassium Level 3.6 4.2 3.6-5.0 MMOL/L Chloride Level 107 107 98-107 MMOL/L Carbon Dioxide Level 24 21 21-32 MMOL/L Anion Gap 14 15 H 5-14 MMOL/L Blood Urea Nitrogen 9 9 7-18 MG/DL Creatinine 0.77 0.76 0.60-1.30 MG/DL Estimat Glomerular Filtration Rate > 60 > 60 BUN/Creatinine Ratio 12 12 Glucose Level 106 H 116 H 70-105 MG/DL Lactic Acid Level 3.58 *H 0.50-2.00 MMOL/L Calcium Level 8.1 L 8.1 L 8.5-10.1 MG/DL Blood Gas Puncture Site R RAD Blood Gas Patient Temperature 96.5 Arterial Blood pH 7.36 L 7.37-7.43 Arterial Blood Partial Pressure CO2 46 H 35-45 MMHG Arterial Blood Partial Pressure O2 79 79-93 MMHG Arterial Blood HCO3 26 23-27 MMOL/L Arterial Blood Total CO2 27.0 21.0-31.0 MMOL/L Arterial Blood Oxygen Saturation 97 94-100 % Arterial Blood Base Excess 0.5 -2.5-2.5 MMOL/L Don Test YES-POS Blood Gas Ventilator Setting YES Blood Gas Inspired Oxygen 70% FIO2 Phosphorus Level 2.2 L 2.3-4.7 MG/DL Magnesium Level 2.0 1.8-2.4 MG/DL Total Bilirubin 0.2 0.1-1.0 MG/DL Aspartate Amino Transf (AST/SGOT) 37 H 5-34 U/L Alanine Aminotransferase (ALT/SGPT) 37 0-55 U/L Alkaline Phosphatase 95 40-136 U/L Total Protein 6.5 6.4-8.2 GM/DL Albumin 3.3 3.2-4.5 GM/DL Physical Exam Vital Signs Vital Sign - Last 12Hours 08/30/17 23:28 FiO2 100 Capillary Refill : Less Than 3 Seconds General Appearance: WD/WN, Severe Distress Eyes: Bilateral Eye Normal Inspection, Bilateral Eye PERRL, Bilateral Eye EOMI HEENT: PERRL/EOMI, TMs Normal, Normal ENT Inspection, Pharynx Normal Neck: Full Range of Motion, Normal Inspection Respiratory: Chest Non Tender, Crackles, Other (ventilator dependent) Cardiovascular: Regular Rate, Rhythm, No Edema, No Gallop, No JVD, No Murmur, Normal Peripheral Pulses Gastrointestinal: Normal Bowel Sounds, No Organomegaly, No Pulsatile Mass, Non Tender, Soft Back: Normal Inspection Extremity: Normal Capillary Refill, Normal Inspection, No Calf Tenderness, Pedal Edema (mild edema) Neurologic/Psychiatric: Other (sedated and intubated) Skin: Normal Color, Warm/Dry Lymphatic: No Adenopathy A/P-Cardiology Admission Diagnosis Status post CODE BLUE Acute respiratory failure Bradycardia COPD Assessment/Plan Status post CODE BLUE, questionable asystole, had transient episode of sinus bradycardia in the emergency room while intubated. Since arrival to the ICU has been in sinus rhythm. No arrhythmia was noted. Continue to monitor Status post respiratory failure, intubated at this time. Managed by Dr. Murphy. Continue weaning.X Transient sinus bradycardia, continue to monitor on telemetry. Planning to evaluate echocardiogram. Elevated lactic acid, leukocytosis, continue antibiotics and monitor COPD, history of exacerbation Seizure disorder, patient has history of seizure. Maintained on Keppra. History of polysubstance abuse and alcohol abuse. Questionable history of pulmonary embolism. Morbid obesity, BMI 56. Clinical Quality Measures DVT/VTE Risk/Contraindication: Risk Factor Score Per Nursin RFS Level Per Nursing on Admit: 4+=Very High DIONNE VAUGHAN MD Aug 31, 2017 10:18
[2017-08-31] MEDS: ENOXAPARIN 40 MG/0.4 ML (LOVENOX) SYR SQ SCH (11:08)
--- NOTE | 2017-08-31 11:55 | History & Physical-Hospitalist ---
HPI History of Present Illness: HPI/Chief Complaint CC: Respiratory failure requiring intubation HPI: This is a 47-year-old white female that was found down at home after falling out of bed per her mother and EMS arrived with first responders performed CPR for unknown rhythm strip but patient was requiring intubation that was completed and she also had a seizure with a history of seizure disorder in the past. She also has a long history of prior drug use and reportedly has used other people's urines to be a will to pass urine drug screens when keeping the urine in her vagina to produce the urine sample when required. Her current UDS was negative for any narcotics or illicit drugs and patient is currently intubated and cannot give me a history. Source: RN/MD Exam Limitations: clinical condition Date Seen 08/31/17 Time Seen by Provider: 11:15 Attending Physician Mya Combs MD PCP Eliot Gong DO Referring Physician Date of Admission Aug 30, 2017 at 23:00 Home Medications & Allergies Home Medications Reviewed patient Home Medication Reconciliation Form Allergies Allergies Coded Allergies No Known Drug Allergies (Unverified01/01/17) Past Fmzekjv-Yuqpml-Kwonni Hx Patient Social History Marrital Status: single Employed/Student: unemployed Alcohol Use: Regular Use Number of Drinks Today: FF Alcohol Beverage of Choice: Vodka Recreational Drug Use: Yes Drug of Choice: METH, THC, PILLS-OPIATES/BENZO'S Smoking Status: Current Everyday Smoker Type Used: Cigarettes 2nd Hand Smoke Exposure: Yes Physical Abuse Screen: No Sexual Abuse: No Recent Foreign Travel: No Contact w/other who traveled: No Recent Hopitalizations: No Recent Infectious Disease Expo: No Immunizations Up To Date Tetanus Booster (TDap): Unknown Date of Pneumonia Vaccine: Apr 26, 2015 Date of Influenza Vaccine: Jul 10, 2017 Seasonal Allergies Seasonal Allergies: No Surgeries Yes Gallbladder, Hysterectomy, Orthopedic, Renal, Tubal Ligation Respiratory Yes (HX OF P.E.--OFF ANTICOAGULANTS FOR OVER A YEAR, PER PT ON 05/23/17) Asthma, COPD, Pulmonary Embolism Currently Using CPAP: No Currently Using BIPAP: No Cardiovascular Yes Hypertension Neurological Yes (PSUEDOSEIZURES) Headaches /Migraines, Seizure Disorder 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 System Hx 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 Disorders: No Sexually Transmitted Disease: No HIV/AIDS: No Female 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 Disorders: Denies DIRECTOR OF 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 EXTENSIVE DENTAL CARIES/ MULTIPLE MISSING TEETH) Cancer No Psychosocial History of Psychiatric Problem: Yes (MULTIPLE OVERDOSES-INTENTIONAL SUICIDE ATTEMPT, AND SOME NON-SUICIDAL) Behavioral Health Disorders: Pseudo Seizures, Sleep Difficulties, Anxiety, Suicide Attempts, Depression Integumentary History of Skin or Integumenta: No Blood Transfusions History of Blood Disorders: No Family Medical History Family Hx: Alcoholism 19 FATHER (grandfather) Alzheimer's disease 19 MOTHER (grandmother) Arthritis 19 FATHER Cardiovascular disease 19 FATHER 19 MOTHER Cataracts 19 MOTHER Coronary thrombosis 19 FATHER Dementia 19 MOTHER (grandparents) Diabetes mellitus 19 MOTHER Drug abuse 19 FATHER Glaucoma 19 FATHER (grandfather) Headache disorder 19 FATHER Hypercholesterolemia 19 FATHER Hypertension 19 FATHER Myocardial infarction 19 FATHER Parkinson's disease 19 MOTHER Prostate cancer 19 MOTHER (uncle brother of mother) Psychosocial problem 19 FATHER Respiratory disorder 19 FATHER (grandfather) Seizure disorder 19 MOTHER No Family History of: AIDS Abdominal aortic aneurysm [place]'s disease Aphasia Asthma Cancer of mouth Colon cancer Completed stroke Congenital disease Congenital heart disease Cystic fibrosis Deafness or hearing loss Dysphasia Fibrocystic disease of breast Gastroenteritis Infertility Kidney disease Neoplasm Severe allergy Thyroid disease Tuberculosis Visual disorder Review of Systems ROS-Unable to Obtain: intubated Constitutional: see HPI Physical Exam Physical Exam Vital Signs Vital Sign - Last 12Hours 08/30/17 23:28 FiO2 100 Capillary Refill : Less Than 3 Seconds General Appearance: No Apparent Distress, WD/WN, Chronically ill, Obese Eyes: Bilateral Eye Normal Inspection, Bilateral Eye PERRL HEENT: Other (ETT in place) Respiratory: Lungs Clear, Normal Breath Sounds, Other (on vent) Cardiovascular: Regular Rate, Rhythm, No Edema, No Gallop, No JVD, No Murmur, Normal Peripheral Pulses Gastrointestinal: Normal Bowel Sounds, No Organomegaly, No Pulsatile Mass, Soft Extremity: Normal Capillary Refill, Normal Inspection, Normal Range of Motion, Non Tender Skin: Normal Color, Warm/Dry Lymphatic: No Adenopathy Results Results/Procedures Lab Laboratory Tests 08/30/17 22:25 08/31/17 01:00 08/31/17 05:40 Assessment/Plan Admission Diagnosis Assessment: Respiratory failure requiring ventilator support Seizure reported Hypoventilation syndrome suspected due to habitus of 5 foot tall and 290 pounds BMI 56 H/O CHETAN in the past h/o COPD h/o smoking Assessment and Plan Plan: Maintain vent Appreciate Dr Murphy's help Monitor labs Sedation Monitor UOP Clinical Quality Measures DVT/VTE Risk/Contraindication: Risk Factor Score Per Nursin RFS Level Per Nursing on Admit: 4+=Very High CIRO STEVENS DO Aug 31, 2017 11:55
--- NOTE | 2017-08-31 11:55 | Progress Note-Hospitalist ---
Progress Note Progress Notes/Assess & Plan Date Seen 08/31/17 Time Seen by Provider: 11:15 CIRO STEVENS DO Aug 31, 2017 11:55
[2017-08-31] MEDS ORDERED: fentaNYL (OMNICELL DRIP KIT ONLY) 250 MCG/5 ML AMP ONE (18:54)
[2017-08-31] MEDS ORDERED: NS (IVPB) 100 ML ONE (18:54)
[2017-08-31] MEDS ORDERED: fentaNYL INJECTION 1,250 MCG in NS (IVPB) 225 ML IV SCH (20:30)
[2017-08-31] MEDS: FAMOTIDINE 20MG/2ML IV (PEPCID) IV SCH (20:48)
[2017-09-01] VITALS (21 sets, daily range): BP systolic 127–219; BP diastolic 79–140
[2017-09-01] MEDS: AZITHROMYCIN 500 MG/NS 250 ML IVPB IV SCH ×2 (00:59)
[2017-09-01] MEDS: PROPOFOL DRIP (ICU) 100 ML IV SCH ×3 (01:43→06:47)
[2017-09-01] MEDS: RT-ALBUTEROL/IPRATROPIUM 3 ML (DUONEB) VIAL INH SCH ×6 (02:34→21:23)
[2017-09-01 04:10] LABS: ABG BASE EXCESS 0.1 MMOL/L (-2.5-2.5); ABG OXYGEN SATURATION 95 % (94-100); ABG PCO2 44 MMHG (35-45); ABG PH 7.37 (7.37-7.43); ABG PO2 67 MMHG (79-93); ABG TCO2 26.3 MMOL/L (21.0-31.0)
[2017-09-01 04:13] LABS: ALLENS TEST YES-POS; INSPIRED O2 24%; PATIENT TEMP 97.1; VENTILATOR YES
[2017-09-01] MEDS: PIPERACILLIN/TAZOBACTAM 4.5 GM/NS100 ML IVPB IV SCH ×6 (04:32→21:23)
[2017-09-01 05:52] LABS: BUN/CREATININE RATIO 13; CARBON DIOXIDE 17 MMOL/L (21-32); CHLORIDE 113 MMOL/L (98-107); CREATININE SERUM 0.61 MG/DL (0.60-1.30); GFR ESTIMATED > 60; GLUCOSE 93 MG/DL (70-105); MAGNESIUM 2.4 MG/DL (1.8-2.4); PHOSPHORUS 2.9 MG/DL (2.3-4.7); POTASSIUM 4.6 MMOL/L (3.6-5.0); SODIUM 144 MMOL/L (135-145)
[2017-09-01] MEDS ORDERED: MAGNESIUM 1 GM/100 ML IVPB 100 ML IV SCH (06:00)
[2017-09-01] MEDS ORDERED: KCL 20 MEQ TAB (K-DUR) PO SCH (06:00)
[2017-09-01] MEDS ORDERED: POTASSIUM CL 10MEQ/50ML IVPB 50 ML IV SCH (06:00)
[2017-09-01] MEDS ORDERED: meTOprolol 5 MG/5 ML (LOPRESSOR) VIAL IV ONE (06:15)
[2017-09-01] MEDS: inSUlin (REGULAR) HUMAN 1 UNIT/0.01 ML (CHARGE PER UNIT) SC SCH ×2 (06:17→12:07)
[2017-09-01 06:34] LABS: BASOPHILS % (AUTO) 0 % (0-10); EOSINOPHILS % (AUTO) 0 % (0-10); HEMATOCRIT 36 % (35-52); HEMOGLOBIN 11.7 G/DL (11.5-16.0); LYMPHOCYTES % (AUTO) 18 % (12-44); MEAN CORPUSCULAR HEMOGLOBIN 31 PG (25-34); MEAN CORPUSCULAR HGB CONC 33 G/DL (32-36); MEAN CORPUSCULAR VOLUME 94 FL (80-99); MONOCYTES # (AUTO) 0.6 X 10^3 (0.0-1.0); MONOCYTES % (AUTO) 6 % (0-12); NEUTROPHILS # (AUTO) 8.3 X 10^3 (1.8-7.8); NEUTROPHILS % (AUTO) 76 % (42-75); PLATELET COUNT 209 10^3/uL (130-400); RED BLOOD COUNT 3.83 10^6/uL (4.35-5.85); RED CELL DISTRIBUTION WIDTH 16.3 % (10.0-14.5)
[2017-09-01] MEDS: NS IV 1000 ML 1,000 ML IV SCH ×2 (06:47→08:36)
--- NOTE | 2017-09-01 08:27 | Pulmonary Progress Note ---
Subjective Time Seen by Provider: 08:26 Subjective/Events-last exam pt is sedated on vent. Exam Exam Vital Signs Date Time Temp Pulse Resp B/P (MAP) Pulse Ox O2 Delivery O2 Flow Rate FiO2 09/01/17 07:00 70 09/01/17 06:47 146/91 09/01/17 06:21 77 20 95 24 09/01/17 06:00 78 17 158/89 (112) 94 Mechanical Ventilator 24.00 09/01/17 05:00 78 20 187/110 (135) 94 Mechanical Ventilator 24.00 09/01/17 04:25 84 26 99 24 09/01/17 04:20 77 20 96 24 09/01/17 04:10 79 203/94 09/01/17 04:00 83 15 144/92 (109) 96 Mechanical Ventilator 24.00 09/01/17 04:00 96 Mechanical Ventilator 24.00 09/01/17 04:00 97.1 09/01/17 03:00 72 19 129/81 (97) 96 Mechanical Ventilator 24.00 09/01/17 02:35 69 20 97 24 09/01/17 02:00 70 19 136/84 (101) 98 Mechanical Ventilator 24.00 09/01/17 01:43 132/97 09/01/17 01:00 71 09/01/17 01:00 71 20 128/90 (103) 97 Mechanical Ventilator 24.00 09/01/17 00:31 73 20 97 24 09/01/17 00:00 76 20 131/82 (98) 96 Mechanical Ventilator 24.00 09/01/17 00:00 96 Mechanical Ventilator 24.00 08/31/17 23:12 97.3 Mechanical Ventilator 24.00 08/31/17 23:09 144/91 Mechanical Ventilator 24.00 08/31/17 23:00 77 19 144/91 (108) 96 Mechanical Ventilator 30.00 08/31/17 22:37 75 20 98 30 08/31/17 22:00 79 20 147/83 (104) 98 Mechanical Ventilator 30.00 08/31/17 21:00 81 19 146/95 (112) 100 Mechanical Ventilator 30.00 08/31/17 20:43 138/90 08/31/17 20:40 80 20 98 30 08/31/17 20:00 98.5 84 19 122/75 (91) 95 Mechanical Ventilator 30.00 1/6/18 20:00 96 Mechanical Ventilator 30.00 08/31/17 19:36 86 08/31/17 19:00 86 20 149/79 (102) 91 Mechanical Ventilator 30.00 08/31/17 18:29 79 22 94 30 08/31/17 16:10 Mechanical Ventilator 30.00 08/31/17 16:08 76 20 98 30 08/31/17 16:04 96 Mechanical Ventilator 30.00 08/31/17 16:00 77 20 141/82 (101) 99 Mechanical Ventilator 40.00 08/31/17 15:44 98.1 Mechanical Ventilator 40.00 08/31/17 15:12 116/90 08/31/17 15:00 89 17 129/83 (98) 100 Mechanical Ventilator 50.00 08/31/17 14:15 80 20 98 40 08/31/17 14:00 98.1 Mechanical Ventilator 50.00 08/31/17 13:04 165/117 08/31/17 13:00 96 08/31/17 12:38 75 20 99 50 08/31/17 12:00 76 19 140/75 (96) 98 Mechanical Ventilator 60.00 08/31/17 11:38 96 Mechanical Ventilator 50.00 08/31/17 11:02 71 20 99 60 08/31/17 11:00 73 19 135/76 (95) 99 Mechanical Ventilator 60.00 08/31/17 10:00 70 20 113/68 (83) 97 Mechanical Ventilator 60.00 08/31/17 09:50 130/76 08/31/17 09:00 96 14 132/75 (94) 98 Mechanical Ventilator 60.00 I & O 09/01/17 07:00 Intake Total 3160 ml Output Total 1900 ml Balance 1260 ml General Appearance: Obese (MORBIDLY), Other (MALODOROUS, DIRTY, COVERED IN ANIMAL HAIR; PT HAS APPEARANCE OF BEING POST-ICTAL, WITH RANDOM SLIGHT TWITCHING OF FINGERS/TOES/HANDS / FEET. EYES OPEN AND BLINKING AND MAKING EYE CONTACT, BUT ONLY VERBAL RESPONSE IS MINIMAL MUMBLING/INCOHERENT NOISES. PT HAS BEEN INCONTINENT OF BOWEL AND BLADDER. ) HEENT: PERRL/EOMI, Other (NO EXTERNAL EVIDENCE OF TRAUMA TO HEAD OR MOUTH/ TONGUE; POOR DENTITION WITH MULTIPLE MISSING TEETH AND REMAINING TEETH WITH EXTENSIVE DECAY) Neck: Full Range of Motion, Normal Inspection Respiratory: Normal Breath Sounds, No Accessory Muscle Use, No Respiratory Distress Cardiovascular: Regular Rate, Rhythm, No Murmur Capillary Refill: Less Than 3 Seconds Extremity: Normal Capillary Refill, Normal Range of Motion, No Pedal Edema Neurologic/Psychiatric: No Motor/Sensory Deficits (GROSSLY INTACT. PT NOT ANSWERING QUESTIONS OR FOLLOWING COMMANDS), Other (MENTATION NOTED ABOVE) Skin: Normal Color, Warm/Dry Lymphatic: No Adenopathy Results Lab Laboratory Tests 08/30/17 22:25 08/31/17 01:00 08/31/17 05:40 09/01/17 05:00 09/01/17 06:30 Assessment/Plan Assessment/Plan S/P CODE BLUE Acute respiratory failure -D/C sedation and wean ventilator Seizures -Keppra Lactic metabolic acidosis -IVF Hx of polysubstance abuse -monitor 233 Clinical Quality Measures DVT/VTE Risk/Contraindication: Risk Factor Score Per Nursin RFS Level Per Nursing on Admit: 4+=Very High BHARGAV ROUSSEAU DO Sep 01, 2017 08:27
[2017-09-01] MEDS: FAMOTIDINE 20MG/2ML IV (PEPCID) IV SCH ×2 (08:35→22:01)
[2017-09-01] MEDS: LEVETIRACETAM INJECTION 1,000 MG in NS (IVPB) 100 ML IV SCH ×2 (08:35→20:57)
[2017-09-01] MEDS: ENOXAPARIN 40 MG/0.4 ML (LOVENOX) SYR SQ SCH (08:36)
--- NOTE | 2017-09-01 08:54 | Diagnostic Imaging Report ---
INDICATION: Pneumonia. Comparison made with prior examination 08/31/2017. FINDINGS: There is cardiomegaly. There is some venous congestion. Lines and tubes are in satisfactory position. There is no pleural effusion or pneumothorax. IMPRESSION: Cardiomegaly and mild central pulmonary venous congestion. Dictated by: Dictated on workstation # [id number]
--- NOTE | 2017-09-01 08:58 | Cardiology Progress Note ---
Subjective Date Seen by Provider: Sep 01, 2017 Time Seen by Provider: 08:56 Subjective/Events-last exam patient is intubated, receiving weaning trial. Unable to provide any further history. Feeling better. Review of Systems General: Other (intubated and cooperative on weaning trial at this time) Objective-Cardiology Exam Last Set of Vital Signs Vital Signs 09/01/17 09/01/17 09/01/17 09/01/17 09/01/17 04:00 06:00 06:21 06:47 07:00 Temp 97.1 Pulse 70 Resp 20 B/P (MAP) 146/91 Pulse Ox 95 O2 Delivery Mechanical Ventilator O2 Flow Rate 24.00 FiO2 24 Capillary Refill : Less Than 3 Seconds I&O Intake and Output 09/01/17 00:00 Intake Total 3170 ml Output Total 2925 ml Balance 245 ml Intake Oral 0 ml IV Total 3170 ml Output Urine Total 1975 ml Gastric Drainage Total 950 ml Daily Weight Change No General: Alert, Cooperative, Moderate Distress HEENT: Atraumatic, PERRLA Neck: Supple, No JVD, No Thyromegaly Lungs: Clear to Auscultation, Normal Air Movement Heart: Regular Rate, Normal S1, Normal S2, No Murmurs Abdomen: Normal Bowel Sounds, Soft, No Tenderness, No Hepatosplenomegaly, No Masses Extremities: No Clubbing, No Cyanosis, No Edema, Normal Pulses, No Tenderness/ Swelling Skin: No Rashes, No Breakdown, No Significant Lesion Neuro: Normal Tone, Sensation Intact Results Lab Laboratory Tests 09/01/17 05:00 09/01/17 06:30 A/P-Cardiology Admission Diagnosis Status post CODE BLUE Acute respiratory failure Bradycardia COPD Assessment/Plan Status post CODE BLUE, questionable asystole, had transient episode of sinus bradycardia in the emergency room while intubated. no further episodes were noted over the past 24 hours. Continue to monitor Status post respiratory failure, intubated at this time. Managed by Dr. Murphy. Continue weaning. Transient sinus bradycardia, continue to monitor on telemetry. Continue to monitor Elevated lactic acid, leukocytosis, continue antibiotics and monitor COPD, history of exacerbation Seizure disorder, patient has history of seizure. Maintained on Keppra. History of polysubstance abuse and alcohol abuse. Questionable history of pulmonary embolism. Morbid obesity, BMI 56. Clinical Quality Measures DVT/VTE Risk/Contraindication: Risk Factor Score Per Nursin RFS Level Per Nursing on Admit: 4+=Very High DIONNE VAUGHAN MD Sep 01, 2017 08:58
[2017-09-01 09:40] LABS: ABG BASE EXCESS -1.9 MMOL/L (-2.5-2.5); ABG OXYGEN SATURATION 99 % (94-100); ABG PCO2 37 MMHG (35-45); ABG PO2 106 MMHG (79-93); ABG TCO2 23.2 MMOL/L (21.0-31.0)
[2017-09-01 09:45] LABS: ALLENS TEST YES-POS; INSPIRED O2 24%; VENTILATOR NO
[2017-09-01] MEDS ORDERED: ALPRAZolam 0.25 MG (XANAX) TAB PO PRN (10:45)
[2017-09-01] MEDS ORDERED: RT-ALBUTEROL HFA (VENTOLIN) PER PUFF IH PRN (10:45)
--- NOTE | 2017-09-01 11:14 | Progress Note-Hospitalist ---
Progress Note HPI/CC on Admission CC: Respiratory failure requiring intubation HPI: This is a 47-year-old white female that was found down at home after falling out of bed per her mother and EMS arrived with first responders performed CPR for unknown rhythm strip but patient was requiring intubation that was completed and she also had a seizure with a history of seizure disorder in the past. She also has a long history of prior drug use and reportedly has used other people's urines to be a will to pass urine drug screens when keeping the urine in her vagina to produce the urine sample when required. Her current UDS was negative for any narcotics or illicit drugs and patient is currently intubated and cannot give me a history. Progress Notes/Assess & Plan Date Seen 09/01/17 Time Seen by Provider: 10:30 Admission Dx/Process Assessment: Respiratory failure requiring ventilator support Seizure reported Hypoventilation syndrome suspected due to habitus of 5 foot tall and 290 pounds BMI 56 H/O CHETAN in the past h/o COPD h/o smoking Diagonsis/Assessment & Plan Patient eating well and was extubated one hour ago and doing great taking breathing treatments Family at the bedside Advancing diet Hep locking fluid as long she can tolerate by mouth Hypoventilation syndrome noted No fever, vital signs stable, alert and oriented 3 Regular rate and rhythm at 92 bpm Diminished breath sounds all collier but no crackles no wheezing No edema Laboratory Tests 09/01/17 05:00 09/01/17 06:30 Assessment: Respiratory failure requiring ventilator support s/p extubation at 1000 this am Seizure reported Hypoventilation syndrome suspected due to habitus of 5 foot tall and 290 pounds BMI 56 H/O CHETAN in the past h/o COPD h/o smoking Plan: IVF Appreciate Dr Murphy's help Monitor labs Reconcile home meds CIRO STEVENS DO Sep 01, 2017 11:14
[2017-09-01] MEDS ORDERED: RT-ALBUTEROL SULF 2.5 MG/3 ML PRE-MIX VIAL INH PRN (11:45)
[2017-09-01] MEDS ORDERED: GABAPENTIN 600 MG (NEURONTIN) TAB PO SCH (13:00)
[2017-09-01] MEDS ORDERED: LISI10TA2 PO (13:31)
[2017-09-01] MEDS ORDERED: GABA800T2 PO (13:31)
[2017-09-01] MEDS ORDERED: AMLO5TAB2 PO (13:31)
[2017-09-01] MEDS ORDERED: QUET100T69 PO (13:31)
[2017-09-01] MEDS: HYDROcodone/APAP 5 MG/325 MG (LORTAB) TAB PO PRN ×2 (14:47→18:21)
[2017-09-01] MEDS: amLODIPine 5 MG (NORVASC) TAB PO SCH (14:47)
[2017-09-01] MEDS: lisINopril 10 MG (PRINIVIL) TAB PO SCH (14:48)
[2017-09-01] MEDS: GABAPENTIN 600 MG (NEURONTIN) TAB PO SCH ×2 (16:37→20:37)
[2017-09-01] MEDS: ALPRAZolam 0.25 MG (XANAX) TAB PO PRN (16:37)
[2017-09-01] MEDS ORDERED: buPROPion 75 MG (WELLBUTRIN) TAB PO SCH (17:00)
[2017-09-01] MEDS: PHENAZOPYRIDINE 100 MG (PYRIDIUM) TABLET PO PRN (18:21)
[2017-09-01] MEDS: QUEtiapine 100 MG (SEROquel) TAB IMMEDIATE RELEASE PO SCH (20:37)
[2017-09-01] MEDS: AMITRIPTYLINE 25 MG (ELAVIL) TAB PO SCH (20:55)
[2017-09-01] MEDS ORDERED: NITROGLYCERIN 2% OINT 1 GM UNIT DOSE PACKET ONE (20:59)
[2017-09-02] VITALS (9 sets, daily range): BP systolic 113–218; BP diastolic 65–112
[2017-09-02] MEDS: AZITHROMYCIN 500 MG/NS 250 ML IVPB IV SCH ×2 (02:14)
[2017-09-02] MEDS ORDERED: AZITHROMYCIN 500 MG (ZITHROMAX) VIAL ONE (02:39)
[2017-09-02] MEDS ORDERED: NS (IVPB) 250 ML ONE (02:40)
[2017-09-02] MEDS: RT-ALBUTEROL/IPRATROPIUM 3 ML (DUONEB) VIAL INH SCH ×6 (03:09→21:31)
[2017-09-02] MEDS: HYDROcodone/APAP 5 MG/325 MG (LORTAB) TAB PO PRN ×4 (03:25→17:13)
[2017-09-02] MEDS: morphine INJ 4 MG/ML 1 ML (VIAL/SYRINGE) IVP PRN ×3 (04:35→11:04)
[2017-09-02] MEDS: NITROGLYCERIN 2% OINT 1 GM UNIT DOSE PACKET TOP PRN ×3 (04:37→20:46)
[2017-09-02] MEDS: PIPERACILLIN/TAZOBACTAM 4.5 GM/NS100 ML IVPB IV SCH ×6 (05:32→21:53)
--- NOTE | 2017-09-02 07:46 | Progress Note (SOAP) ---
Subjective Time Seen by Provider: 07:30 Subjective/Events-last exam patient feeling better today. Patient states that age 6 she went to [facility] in [facility] and told she had seizures and migraine. A few years ago patient was told she had pseudoseizures. Patient had seizures again recently in the emergency room and at home. Acute respiratory failure. Lactic metabolic acidosis. History of polysubstance abuse. Bradycardia. Patient alert and able to give history Objective Exam Vital Signs Date Time Temp Pulse Resp B/P (MAP) Pulse Ox O2 Delivery O2 Flow Rate FiO2 09/02/17 06:58 94 Room Air 09/02/17 05:52 128/72 (90) 09/02/17 04:00 97.5 71 20 193/101 (131) 94 Room Air 09/02/17 03:10 93 Room Air 09/02/17 00:00 96.9 79 20 113/70 (84) 94 Room Air 09/01/17 21:18 91 Room Air 09/01/17 21:00 98 Room Air 09/01/17 19:37 98.1 88 22 219/116 (150) 96 Room Air 09/01/17 16:12 98.9 83 16 177/103 (127) 94 Room Air 09/01/17 15:09 98 Nasal Cannula 2.00 09/01/17 13:00 74 09/01/17 13:00 76 18 146/80 (102) 98 Nasal Cannula 2.00 09/01/17 12:00 98.6 09/01/17 12:00 98 Nasal Cannula 2.00 09/01/17 12:00 20 154/105 (121) 98 Nasal Cannula 2.00 09/01/17 11:05 100 Nasal Cannula 4.00 09/01/17 11:00 80 20 160/140 (147) 98 Nasal Cannula 2.00 09/01/17 10:00 85 37 172/132 (145) 98 Nasal Cannula 2.00 09/01/17 09:00 82 15 156/92 (113) 98 Mechanical Ventilator 24.00 09/01/17 08:00 71 20 143/84 (103) 96 Mechanical Ventilator 24.00 09/01/17 08:00 96 Mechanical Ventilator 24.00 I & O 09/02/17 07:00 Intake Total 2180 ml Output Total 600 ml Balance 1580 ml Capillary Refill : Less Than 3 Seconds General Appearance: No Apparent Distress, WD/WN HEENT: Normal ENT Inspection Neck: Full Range of Motion, Normal Inspection Respiratory: Lungs Clear, No Accessory Muscle Use, No Respiratory Distress Cardiovascular: Regular Rate, Rhythm, No Murmur Gastrointestinal: non tender, soft Results Lab Laboratory Tests 09/01/17 09:34: Blood Gas Puncture Site LT BRACHIAL, Blood Gas Patient Temperature 100.0, Arterial Blood pH 7.40, Arterial Blood Partial Pressure CO2 37, Arterial Blood Partial Pressure O2 106H, Arterial Blood HCO3 22L, Arterial Blood Total CO2 23.2 , Arterial Blood Oxygen Saturation 99, Arterial Blood Base Excess -1.9, Don Test YES-POS, Blood Gas Ventilator Setting NO, Blood Gas Inspired Oxygen 24% 09/01/17 11:56: Glucometer 95 09/01/17 16:14: Glucometer 109 09/01/17 21:00: Glucometer 103 09/02/17 05:10: Glucometer 98 Microbiology 08/30/17 Blood Culture - Preliminary, Resulted No growth 08/31/17 MRSA Screen - Final, Complete MRSA not isolated Assessment/Plan Assessment/Plan Assess & Plan/Chief Complaint CODE BLUE. History of alcohol abuse. Seizure. Acute respiratory failure. Lactic metabolic acidosis. History of polysubstance abuse. Bradycardia. At age 6 history of seizures and migraine. Hypertension Patient feeling better today Clinical Quality Measures DVT/VTE Risk/Contraindication: Risk Factor Score Per Nursin RFS Level Per Nursing on Admit: 4+=Very High HARVEY LINDSEY DO Sep 02, 2017 07:46
[2017-09-02 07:51] LABS: MEAN CORPUSCULAR HEMOGLOBIN 30 PG (25-34); PLATELET COUNT 238 10^3/uL (130-400); RED BLOOD COUNT 3.68 10^6/uL (4.35-5.85); RED CELL DISTRIBUTION WIDTH 15.1 % (10.0-14.5); WHITE BLOOD COUNT 7.8 10^3/uL (4.3-11.0)
[2017-09-02 07:52] LABS: BASOPHILS % (AUTO) 0 % (0-10); EOSINOPHILS # (AUTO) 0.2 10^3/uL (0.0-0.3); EOSINOPHILS % (AUTO) 2 % (0-10); LYMPHOCYTES # (AUTO) 2.8 X 10^3 (1.0-4.0); LYMPHOCYTES % (AUTO) 35 % (12-44); MONOCYTES # (AUTO) 0.5 X 10^3 (0.0-1.0); MONOCYTES % (AUTO) 6 % (0-12); NEUTROPHILS # (AUTO) 4.4 X 10^3 (1.8-7.8); NEUTROPHILS % (AUTO) 57 % (42-75)
[2017-09-02 08:11] LABS: ALANINE AMINOTRANSFERASE 28 U/L (0-55); ALBUMIN 3.1 GM/DL (3.2-4.5); ALKALINE PHOSPHATASE 76 U/L (40-136); BILIRUBIN,TOTAL 0.3 MG/DL (0.1-1.0); BUN/CREATININE RATIO 11; CALCIUM 8.7 MG/DL (8.5-10.1); CARBON DIOXIDE 24 MMOL/L (21-32); CHLORIDE 106 MMOL/L (98-107); CREATININE SERUM 0.61 MG/DL (0.60-1.30); GFR ESTIMATED > 60; GLUCOSE 90 MG/DL (70-105); POTASSIUM 3.3 MMOL/L (3.6-5.0); SODIUM 143 MMOL/L (135-145)
--- NOTE | 2017-09-02 08:53 | Cardiology Progress Note ---
Subjective Date Seen by Provider: Sep 02, 2017 Time Seen by Provider: 08:48 Subjective/Events-last exam Patient is laying in bed, no new complaint. Denies any CP or dizziness. Reports increased dyspnea at home several days prior to admission. Objective-Cardiology Exam Last Set of Vital Signs Vital Signs 09/01/17 09/01/17 09/02/17 09/02/17 09/02/17 06:21 15:09 04:00 05:52 06:58 Temp 97.5 Pulse 71 Resp 20 B/P (MAP) 128/72 (90) Pulse Ox 94 O2 Delivery Room Air O2 Flow Rate 2.00 FiO2 24 Capillary Refill : Less Than 3 Seconds I&O Intake and Output 09/02/17 00:00 Intake Total 3380 ml Output Total 950 ml Balance 2430 ml Intake Oral 1520 ml IV Total 1860 ml Output Urine Total 650 ml Post Void Residual 200 ml Gastric Drainage Total 100 ml # Voids 11 General: Alert, Cooperative, Moderate Distress HEENT: Atraumatic, PERRLA Neck: Supple, No JVD, No Thyromegaly Lungs: Clear to Auscultation, Normal Air Movement Heart: Regular Rate, Normal S1, Normal S2, No Murmurs Abdomen: Normal Bowel Sounds, Soft, No Tenderness, No Hepatosplenomegaly, No Masses Extremities: No Clubbing, No Cyanosis, No Edema, Normal Pulses, No Tenderness/ Swelling Skin: No Rashes, No Breakdown, No Significant Lesion Neuro: Normal Tone, Sensation Intact Psych/Mental Status: Mental Status NL, Mood NL Results Lab Laboratory Tests 09/02/17 07:39 A/P-Cardiology Admission Diagnosis Status post CODE BLUE Acute respiratory failure Bradycardia COPD Assessment/Plan Status post CODE BLUE, questionable asystole, had transient episode of sinus bradycardia in the emergency room while intubated. no further episodes were noted over the past [address] back on telemetry and continue to monitor. Status post respiratory failure, extubated and improving. Managed by Dr. Murphy. Continue to monitor. Transient sinus bradycardia, continue to monitor on telemetry. Continue to monitor Elevated lactic acid, leukocytosis, continue antibiotics and monitor COPD, history of exacerbation Seizure disorder, patient has history of seizure. Maintained on Keppra. History of polysubstance abuse and alcohol abuse. Questionable history of pulmonary embolism. Morbid obesity, BMI 56. Clinical Quality Measures DVT/VTE Risk/Contraindication: Risk Factor Score Per Nursin RFS Level Per Nursing on Admit: 4+=Very High RONAK MONTILLA Sep 02, 2017 08:52
[2017-09-02] MEDS: amLODIPine 5 MG (NORVASC) TAB PO SCH (09:00)
[2017-09-02] MEDS: DULoxetine 30 MG (CYMBALTA) CAP PO SCH (09:00)
[2017-09-02] MEDS: GABAPENTIN 600 MG (NEURONTIN) TAB PO SCH ×4 (09:01→20:46)
[2017-09-02] MEDS: lisINopril 10 MG (PRINIVIL) TAB PO SCH (09:01)
[2017-09-02] MEDS: PANTOPRAZOLE 40 MG (PROTONIX) TAB PO SCH (09:01)
[2017-09-02] MEDS: ALPRAZolam 0.25 MG (XANAX) TAB PO PRN ×2 (09:03→17:16)
--- NOTE | 2017-09-02 09:11 | Cardiology Progress Note ---
Subjective Date Seen by Provider: Sep 02, 2017 Time Seen by Provider: 08:45 Subjective/Events-last exam Patient is laying down in bed, had breakfast this morning feeling better, no new complaint, recalled that she felt groggy before passing out then remember having chest compression at home. Reported that her mother noted that she had seizure like activities Review of Systems General: No Chills, No Night Sweats, No Fatigue, No Malaise, No Appetite, No Other HEENT: No Head Aches, No Visual Changes, No Eye Pain, No Ear Pain, No Dysphasia , No Sinus Congestion, No Post Nasal Drip, No Sore Throat, No Other Pulmonary: Dyspnea, No Cough, No Pleuritic Chest Pain, No Other Cardiovascular: No: Chest Pain, Palpitations, Orthopnea, Paroxysmal Noc. Dyspnea, Edema, Lt Headedness, Other Objective-Cardiology Exam Last Set of Vital Signs Vital Signs 09/01/17 09/01/17 09/02/17 09/02/17 09/02/17 06:21 15:09 04:00 05:52 06:58 Temp 97.5 Pulse 71 Resp 20 B/P (MAP) 128/72 (90) Pulse Ox 94 O2 Delivery Room Air O2 Flow Rate 2.00 FiO2 24 Capillary Refill : Less Than 3 Seconds I&O Intake and Output 09/02/17 00:00 Intake Total 3380 ml Output Total 950 ml Balance 2430 ml Intake Oral 1520 ml IV Total 1860 ml Output Urine Total 650 ml Post Void Residual 200 ml Gastric Drainage Total 100 ml # Voids 11 General: Alert, Oriented X3, Cooperative, Mild Distress HEENT: Atraumatic, PERRLA Neck: Supple, No JVD, No Thyromegaly Lungs: Clear to Auscultation, Normal Air Movement Heart: Regular Rate, Normal S1, Normal S2, No Murmurs Abdomen: Normal Bowel Sounds, Soft, No Tenderness, No Hepatosplenomegaly, No Masses Extremities: No Clubbing, No Cyanosis, No Edema, Normal Pulses, No Tenderness/ Swelling Skin: No Rashes, No Breakdown, No Significant Lesion Neuro: Normal Speech, Normal Tone, Sensation Intact Psych/Mental Status: Mental Status NL, Mood NL Results Lab Laboratory Tests 09/02/17 07:39 A/P-Cardiology Admission Diagnosis Status post CODE BLUE Acute respiratory failure Bradycardia COPD Assessment/Plan Status post CODE BLUE, questionable asystole, had transient episode of sinus bradycardia in the emergency room while intubated. no further episodes were noted on telemetry, I will place her back on telemetry and continue to monitor her. Status post respiratory failure, extubated and improving. Managed by Dr. Murphy. Continue to monitor. Transient sinus bradycardia, continue to monitor on telemetry. Continue to monitor COPD, history of exacerbation Seizure disorder, patient has history of seizure, last episode occurred in the remote past, will need to have neurology evaluation. History of polysubstance abuse and alcohol abuse, patient denied any recent use of any illicit drugs or alcohol Questionable history of pulmonary embolism. Morbid obesity, BMI 56. Clinical Quality Measures DVT/VTE Risk/Contraindication: Risk Factor Score Per Nursin RFS Level Per Nursing on Admit: 4+=Very High DIONNE VAUGHAN MD Sep 02, 2017 09:11
[2017-09-02] MEDS: LEVETIRACETAM INJECTION 1,000 MG in NS (IVPB) 100 ML IV SCH ×2 (09:55→21:14)
[2017-09-02 10:36] LABS: HEMATOCRIT 37 % (35-52); MEAN CORPUSCULAR HGB CONC 30 G/DL (32-36); MEAN CORPUSCULAR VOLUME 101 FL (80-99)
[2017-09-02] MEDS: ENOXAPARIN 40 MG/0.4 ML (LOVENOX) SYR SQ SCH (11:04)
--- NOTE | 2017-09-02 11:43 | Pulmonary Progress Note ---
Subjective Time Seen by Provider: 07:00 Subjective/Events-last exam pt doing much better. Exam Exam Vital Signs Date Time Temp Pulse Resp B/P (MAP) Pulse Ox O2 Delivery O2 Flow Rate FiO2 09/02/17 10:40 93 Room Air 09/02/17 09:00 Room Air 09/02/17 08:00 98.0 73 20 184/90 (121) 94 Room Air 09/02/17 06:58 94 Room Air 09/02/17 05:52 128/72 (90) 09/02/17 04:00 97.5 71 20 193/101 (131) 94 Room Air 09/02/17 03:10 93 Room Air 09/02/17 00:00 96.9 79 20 113/70 (84) 94 Room Air 09/01/17 21:18 91 Room Air 09/01/17 21:00 98 Room Air 09/01/17 19:37 98.1 88 22 219/116 (150) 96 Room Air 09/01/17 16:12 98.9 83 16 177/103 (127) 94 Room Air 09/01/17 15:09 98 Nasal Cannula 2.00 09/01/17 13:00 74 09/01/17 13:00 76 18 146/80 (102) 98 Nasal Cannula 2.00 09/01/17 12:00 98.6 09/01/17 12:00 98 Nasal Cannula 2.00 09/01/17 12:00 20 154/105 (121) 98 Nasal Cannula 2.00 I & O 09/02/17 07:00 Intake Total 2180 ml Output Total 600 ml Balance 1580 ml General Appearance: No Apparent Distress, WD/WN HEENT: Normal ENT Inspection Neck: Full Range of Motion, Normal Inspection Respiratory: Lungs Clear, No Accessory Muscle Use, No Respiratory Distress Cardiovascular: Regular Rate, Rhythm, No Murmur Capillary Refill: Less Than 3 Seconds Gastrointestinal: non tender, soft Extremity: Normal Capillary Refill, Normal Range of Motion, No Pedal Edema Neurologic/Psychiatric: No Motor/Sensory Deficits (GROSSLY INTACT. PT NOT ANSWERING QUESTIONS OR FOLLOWING COMMANDS), Other (MENTATION NOTED ABOVE) Skin: Normal Color, Warm/Dry Lymphatic: No Adenopathy Results Lab Laboratory Tests 09/01/17 05:00 09/01/17 06:30 09/02/17 07:39 Assessment/Plan Assessment/Plan S/P CODE BLUE Acute respiratory failure -pt is doing well off ventilator Seizures -Keppra Lactic metabolic acidosis -IVF Hx of polysubstance abuse -monitor Pt is doing much better. I am going to sign off. 232 Clinical Quality Measures DVT/VTE Risk/Contraindication: Risk Factor Score Per Nursin RFS Level Per Nursing on Admit: 4+=Very High BHARGAV ROUSSEAU DO Sep 02, 2017 11:43
[2017-09-02] MEDS: QUEtiapine 100 MG (SEROquel) TAB IMMEDIATE RELEASE PO SCH (20:46)
[2017-09-02] MEDS: AMITRIPTYLINE 25 MG (ELAVIL) TAB PO SCH (20:46)
[2017-09-02] MEDS: PHENAZOPYRIDINE 100 MG (PYRIDIUM) TABLET PO PRN (21:14)
[2017-09-02] MEDS ORDERED: ENALAPRILAT 2.5 MG/2 ML (VASOTEC) VIAL IV ONE (22:30)
[2017-09-02] MEDS ORDERED: cloNIDine 0.1 MG (CATAPRES) TAB PO ONE (22:30)
[2017-09-03] MEDS: RT-ALBUTEROL/IPRATROPIUM 3 ML (DUONEB) VIAL INH SCH ×3 (02:00→10:43)
[2017-09-03] MEDS ORDERED: NS (IVPB) 250 ML ONE (02:11)
[2017-09-03] MEDS ORDERED: AZITHROMYCIN 500 MG (ZITHROMAX) VIAL ONE (02:11)
[2017-09-03] MEDS: AZITHROMYCIN 500 MG/NS 250 ML IVPB IV SCH ×2 (02:17)
[2017-09-03 04:00] VITALS: BP 134/83
[2017-09-03] MEDS: PIPERACILLIN/TAZOBACTAM 4.5 GM/NS100 ML IVPB IV SCH ×2 (04:51)
[2017-09-03] MEDS: PANTOPRAZOLE 40 MG (PROTONIX) TAB PO SCH (06:21)
[2017-09-03] MEDS ORDERED: KCL 10 MEQ TAB (MICRO K) PO NR (07:45)
--- NOTE | 2017-09-03 07:47 | Progress Note (SOAP) ---
Subjective Time Seen by Provider: 07:45 Subjective/Events-last exam patient feeling better today. Patient wants to go home. Acute respiratory failure. Postcode blue. Seizure disorder. Lactic metabolic acidosis. Bradycardia. COPD. Patient doing better todaysome soreness in chest where had CPR Objective Exam Vital Signs Date Time Temp Pulse Resp B/P (MAP) Pulse Ox O2 Delivery O2 Flow Rate FiO2 09/03/17 06:35 92 Nasal Cannula 1.00 09/03/17 04:00 96.8 67 18 134/83 (100) 94 09/03/17 02:00 94 Nasal Cannula 1.00 09/03/17 01:00 79 09/02/17 23:37 98.0 76 22 154/96 (115) 96 Nasal Cannula 1.00 09/02/17 22:13 72 180/112 (134) 09/02/17 21:31 95 Nasal Cannula 1.00 09/02/17 21:00 Room Air 09/02/17 20:26 97.8 77 20 184/104 (130) 96 Nasal Cannula 1.00 09/02/17 19:00 78 09/02/17 18:31 92 Room Air 09/02/17 16:00 98.1 89 18 139/65 (89) 92 Room Air 09/02/17 13:00 78 09/02/17 12:00 98.7 80 20 218/100 (139) 93 Room Air 09/02/17 10:40 93 Room Air 09/02/17 09:45 81 09/02/17 09:00 Room Air 09/02/17 08:00 98.0 73 20 184/90 (121) 94 Room Air I & O 09/03/17 07:00 Intake Total 2350 ml Balance 2350 ml Capillary Refill : Less Than 3 Seconds General Appearance: No Apparent Distress, WD/WN HEENT: Normal ENT Inspection Neck: Full Range of Motion, Normal Inspection Respiratory: Chest Non Tender, Lungs Clear, Normal Breath Sounds, No Accessory Muscle Use Cardiovascular: Regular Rate, Rhythm, No Murmur Gastrointestinal: non tender, soft Results Lab Laboratory Tests 09/02/17 10:51: Glucometer 108 09/02/17 16:30: Glucometer 105 09/02/17 20:30: Glucometer 104 09/03/17 05:17: Glucometer 99 Microbiology 08/30/17 Blood Culture - Preliminary, Resulted No growth 08/31/17 MRSA Screen - Final, Complete MRSA not isolated Assessment/Plan Assessment/Plan Assess & Plan/Chief Complaint CODE BLUE. History of alcohol abuse. Seizure. Acute respiratory failure. Lactic metabolic acidosis. History of polysubstance abuse. Bradycardia. At age 6 history of seizures and migraine. Hypertension Patient feeling better today. . Status post CODE BLUE. 09/03/17. seizure. Acute respiratory failure. Bradycardia. Hypertension. Patient feeling better today and wants to go home. Patient stable Clinical Quality Measures DVT/VTE Risk/Contraindication: Risk Factor Score Per Nursin RFS Level Per Nursing on Admit: 4+=Very High HARVEY LINDSEY DO Sep 03, 2017 07:47
[2017-09-03 08:00] VITALS: BP 159/82
--- NOTE | 2017-09-03 08:05 | Cardiology Progress Note ---
Subjective Date Seen by Provider: Sep 03, 2017 Time Seen by Provider: 08:04 Subjective/Events-last exam patient is feeling better, breathing better, had transient episode of hypertension last night. Having pain in her chest due to chest compressions. Review of Systems General: No Chills, No Night Sweats, No Fatigue, No Malaise, No Appetite, No Other HEENT: No Head Aches, No Visual Changes, No Eye Pain, No Ear Pain, No Dysphasia , No Sinus Congestion, No Post Nasal Drip, No Sore Throat, No Other Pulmonary: Dyspnea, No Cough, No Pleuritic Chest Pain, No Other Cardiovascular: Chest Pain, Edema, No: Palpitations, Orthopnea, Paroxysmal Noc. Dyspnea, Lt Headedness, Other Objective-Cardiology Exam Last Set of Vital Signs Vital Signs 09/01/17 09/03/17 09/03/17 06:21 04:00 06:35 Temp 96.8 Pulse 67 Resp 18 B/P (MAP) 134/83 (100) Pulse Ox 92 O2 Delivery Nasal Cannula O2 Flow Rate 1.00 FiO2 24 Capillary Refill : Less Than 3 Seconds I&O Intake and Output 09/03/17 00:00 Intake Total 1850 ml Balance 1850 ml Intake Oral 1390 ml IV Total 460 ml # Voids 13 General: Alert, Oriented X3, Cooperative, Mild Distress HEENT: Atraumatic, PERRLA Neck: Supple, No JVD, No Thyromegaly Lungs: Clear to Auscultation, Normal Air Movement Heart: Regular Rate, Normal S1, Normal S2, No Murmurs Abdomen: Normal Bowel Sounds, Soft, No Tenderness, No Hepatosplenomegaly, No Masses Extremities: No Clubbing, No Cyanosis, No Edema, Normal Pulses, No Tenderness/ Swelling Skin: No Rashes, No Breakdown, No Significant Lesion Neuro: Normal Speech, Normal Tone, Sensation Intact Psych/Mental Status: Mental Status NL, Mood NL A/P-Cardiology Admission Diagnosis Status post CODE BLUE Acute respiratory failure Bradycardia COPD Assessment/Plan Status post CODE BLUE, questionable asystole, had transient episode of sinus bradycardia in the emergency room while intubated. no further episodes were noted on telemetry, okay for discharge and follow-up as an outpatient Status post respiratory failure, extubated and improving. Managed by Dr. Murphy. Transient sinus bradycardia, continue to monitor on telemetry. Continue to monitor COPD, history of exacerbation Seizure disorder, patient has history of seizure, last episode occurred in the remote past, will need to have neurology evaluation. History of polysubstance abuse and alcohol abuse, patient denied any recent use of any illicit drugs or alcohol Questionable history of pulmonary embolism. Morbid obesity, BMI 56. Clinical Quality Measures DVT/VTE Risk/Contraindication: Risk Factor Score Per Nursin RFS Level Per Nursing on Admit: 4+=Very High DIONNE VAUGHAN MD Sep 03, 2017 08:05
[2017-09-03] MEDS: DULoxetine 30 MG (CYMBALTA) CAP PO SCH (08:45)
[2017-09-03] MEDS: amLODIPine 5 MG (NORVASC) TAB PO SCH (08:45)
[2017-09-03] MEDS: LEVETIRACETAM INJECTION 1,000 MG in NS (IVPB) 100 ML IV SCH ×2 (08:45→09:00)
[2017-09-03] MEDS: GABAPENTIN 600 MG (NEURONTIN) TAB PO SCH (08:45)
[2017-09-03] MEDS: HYDROcodone/APAP 5 MG/325 MG (LORTAB) TAB PO PRN ×2 (08:56)
[2017-09-03] MEDS: ALPRAZolam 0.25 MG (XANAX) TAB PO PRN (08:57)
[2017-09-03] MEDS ORDERED: lisINopril 10 MG (PRINIVIL) TAB PO SCH (09:00)
[2017-09-03] MEDS ORDERED: LEVETIRACETAM 1,000 MG (KEPPRA) TABLET PO NR (09:15)
[2017-09-03] MEDS: ENOXAPARIN 40 MG/0.4 ML (LOVENOX) SYR SQ SCH (10:09)
[2017-09-03] MEDS ORDERED: AZIT250T12 PO (11:24)
[2017-09-03 13:45] VITALS: BP 154/80
[2017-09-04] MEDS ORDERED: AZITHROMYCIN 250 MG TAB (ZITHROMAX) PO SCH (09:00)
--- NOTE | 2017-09-04 19:43 | Discharge Summary ---
Diagnosis/Chief Complaint Date of Admission Aug 30, 2017 at 23:00 Date of Discharge Sep 03, 2017 at 13:45 Discharge Date: Sep 03, 2017 Discharge Time: 19:40 Discharge Diagnosis status CODE BLUE. Seizures. Bradycardia. Acidosis. Acute respiratory failure with hypoxia. Anxiety disorder. Depression. Cardiac arrest. Essential hypertension. Hyperlipidemia. Morbid obesity. Polysubstance abuse. Nicotine dependence. Lactic metabolic acidosis Discharge Summary Consultations pulmonology. Cardiology Discharge Physical Examination Allergies: Coded Allergies: No Known Drug Allergies (Unverified , 01/01/17) Vitals & I&Os Vital Signs Date Time Temp Pulse Resp B/P (MAP) Pulse Ox O2 Delivery O2 Flow Rate FiO2 09/03/17 13:45 71 20 154/80 94 Room Air 09/03/17 08:00 98.1 09/03/17 06:35 1.00 09/01/17 06:21 24 Hospital Course patient in hospital did much better. Patient able to be discharged home. He shouldn't sent home on Keppra for seizures. Labs (last 24 hrs) Laboratory Tests 08/30/17 22:00: Blood Gas Puncture Site RIGHT RADIAL, Blood Gas Patient Temperature 98.3, Arterial Blood pH 7.19*L, Arterial Blood Partial Pressure CO2 42, Arterial Blood Partial Pressure O2 81, Arterial Blood HCO3 16*L, Arterial Blood Total CO2 17.1L, Arterial Blood Oxygen Saturation 95, Arterial Blood Base Excess - 10.9L, Don Test POSITIVE, Blood Gas Ventilator Setting NO, Blood Gas Inspired Oxygen 5L 08/30/17 22:25: White Blood Count 27.9H, Red Blood Count 5.03, Hemoglobin 15.2, Hematocrit 44, Mean Corpuscular Volume 88, Mean Corpuscular Hemoglobin 30, Mean Corpuscular Hemoglobin Concent 35, Red Cell Distribution Width 15.0H, Platelet Count 382, Mean Platelet Volume 9.8, Neutrophils (%) (Auto) 66, Lymphocytes (%) (Auto) 28, Monocytes (%) (Auto) 5, Eosinophils (%) (Auto) 1, Basophils (%) (Auto) 0, Neutrophils # (Auto) 18.5H, Lymphocytes # (Auto) 7.7H, Monocytes # (Auto) 1.5H, Eosinophils # (Auto) 0.2, Basophils # (Auto) 0.1, Neutrophils % (Manual) 58, Lymphocytes % (Manual) 31, Monocytes % (Manual) 5, Eosinophils % (Manual) 2, Basophils % (Manual) 0, Band Neutrophils 4, Blood Morphology Comment NORMAL, Prothrombin Time 14.3, INR Comment 1.1, Activated Partial Thromboplast Time 30, Sodium Level 145, Potassium Level 3.5L, Chloride Level 104, Carbon Dioxide Level 14L, Anion Gap 27H, Blood Urea Nitrogen 10, Creatinine 0.99, Estimat Glomerular Filtration Rate 60, BUN/Creatinine Ratio 10, Glucose Level 259H, Lactic Acid Level 16.51*H, Calcium Level 9.4, Magnesium Level 2.5H, Total Bilirubin 0.2, Aspartate Amino Transf (AST/SGOT) 38H, Alanine Aminotransferase ( ALT/SGPT) 42, Alkaline Phosphatase 121, Total Creatine Kinase 106, Creatine Kinase MB 1.3, Troponin I < 0.30, B-Type Natriuretic Peptide 40.0, Total Protein 7.9, Albumin 4.0, TSH [place] Testing 4.10, Serum Alcohol < 10 08/30/17 23:05: Blood Gas Puncture Site RIGHT RADIAL, Blood Gas Patient Temperature 98.3, Arterial Blood pH 7.22*L, Arterial Blood Partial Pressure CO2 61H, Arterial Blood Partial Pressure O2 175H, Arterial Blood HCO3 24, Arterial Blood Total CO2 25.9, Arterial Blood Oxygen Saturation 99, Arterial Blood Base Excess -2.8L , Don Test POSITIVE, Blood Gas Ventilator Setting YES, Blood Gas Inspired Oxygen 100% 08/30/17 23:19: Urine Color YELLOW, Urine Clarity CLEAR, Urine pH 6, Urine Specific [place] 1.020, Urine Protein 3+H, Urine Glucose (UA) NEGATIVE, Urine Ketones 1+H, Urine Nitrite NEGATIVE, Urine Bilirubin NEGATIVE, Urine Urobilinogen NORMAL, Urine Leukocyte Esterase NEGATIVE, Urine RBC (Auto) 1+H, Urine RBC RARE, Urine WBC NONE, Urine Squamous Epithelial Cells NONE, Urine Crystals NONE, Urine Bacteria NEGATIVE, Urine Casts PRESENT, Urine Hyaline Casts 0-2H, Urine Mucus SMALLH, Urine Culture Indicated NO, Urine Opiates Screen NEGATIVE, Urine Oxycodone Screen NEGATIVE, Urine Methadone Screen NEGATIVE, Urine Propoxyphene Screen NEGATIVE, Urine Barbiturates Screen NEGATIVE, Ur Tricyclic Antidepressants Screen NEGATIVE, Urine Phencyclidine Screen NEGATIVE, Urine Amphetamines Screen NEGATIVE, Urine Methamphetamines Screen NEGATIVE, Urine Benzodiazepines Screen POSITIVEH, Urine Cocaine Screen NEGATIVE, Urine Cannabinoids Screen NEGATIVE 08/31/17 01:00: White Blood Count 24.4H, Red Blood Count 4.50, Hemoglobin 13.6, Hematocrit 38, Mean Corpuscular Volume 85, Mean Corpuscular Hemoglobin 30, Mean Corpuscular Hemoglobin Concent 36, Red Cell Distribution Width 14.8H, Platelet Count 279, Mean Platelet Volume 9.5, Neutrophils (%) (Auto) 88H, Lymphocytes (%) (Auto) 6L , Monocytes (%) (Auto) 6, Eosinophils (%) (Auto) 0, Basophils (%) (Auto) 0, Neutrophils # (Auto) 21.4H, Lymphocytes # (Auto) 1.6, Monocytes # (Auto) 1.4H, Eosinophils # (Auto) 0.0, Basophils # (Auto) 0.0, Sodium Level 145, Potassium Level 3.6, Chloride Level 107, Carbon Dioxide Level 24, Anion Gap 14, Blood Urea Nitrogen 9, Creatinine 0.77, Estimat Glomerular Filtration Rate > 60, BUN/ Creatinine Ratio 12, Glucose Level 106H, Lactic Acid Level 3.58*H, Calcium Level 8.1L 08/31/17 04:18: Blood Gas Puncture Site R RAD, Blood Gas Patient Temperature 96.5, Arterial Blood pH 7.36L, Arterial Blood Partial Pressure CO2 46H, Arterial Blood Partial Pressure O2 79, Arterial Blood HCO3 26, Arterial Blood Total CO2 27.0, Arterial Blood Oxygen Saturation 97, Arterial Blood Base Excess 0.5, Don Test YES-POS, Blood Gas Ventilator Setting YES, Blood Gas Inspired Oxygen 70% FIO2 08/31/17 05:40: White Blood Count 20.9H, Red Blood Count 4.67, Hemoglobin 14.1, Hematocrit 40, Mean Corpuscular Volume 86, Mean Corpuscular Hemoglobin 30, Mean Corpuscular Hemoglobin Concent 35, Red Cell Distribution Width 15.2H, Platelet Count 256, Mean Platelet Volume 10.2, Neutrophils (%) (Auto) 90H, Lymphocytes (%) (Auto) 7L , Monocytes (%) (Auto) 2, Eosinophils (%) (Auto) 1, Basophils (%) (Auto) 0, Neutrophils # (Auto) 18.8H, Lymphocytes # (Auto) 1.4, Monocytes # (Auto) 0.5, Eosinophils # (Auto) 0.2, Basophils # (Auto) 0.0, Sodium Level 143, Potassium Level 4.2, Chloride Level 107, Carbon Dioxide Level 21, Anion Gap 15H, Blood Urea Nitrogen 9, Creatinine 0.76, Estimat Glomerular Filtration Rate > 60, BUN/ Creatinine Ratio 12, Glucose Level 116H, Calcium Level 8.1L, Phosphorus Level 2.2L, Magnesium Level 2.0, Total Bilirubin 0.2, Aspartate Amino Transf (AST/SGOT ) 37H, Alanine Aminotransferase (ALT/SGPT) 37, Alkaline Phosphatase 95, Total Protein 6.5, Albumin 3.3 08/31/17 11:38: Glucometer 98 08/31/17 17:20: Glucometer 98 08/31/17 23:17: Glucometer 112H 09/01/17 04:05: Blood Gas Puncture Site R RAD, Blood Gas Patient Temperature 97.1, Arterial Blood pH 7.37, Arterial Blood Partial Pressure CO2 44, Arterial Blood Partial Pressure O2 67L, Arterial Blood HCO3 25, Arterial Blood Total CO2 26.3, Arterial Blood Oxygen Saturation 95, Arterial Blood Base Excess 0.1, Don Test YES-POS, Blood Gas Ventilator Setting YES, Blood Gas Inspired Oxygen 24% 09/01/17 05:00: Sodium Level 144, Potassium Level 4.6, Chloride Level 113H, Carbon Dioxide Level 17L, Anion Gap 14, Blood Urea Nitrogen 8, Creatinine 0.61, Estimat Glomerular Filtration Rate > 60, BUN/Creatinine Ratio 13, Glucose Level 93, Calcium Level 8.0L, Phosphorus Level 2.9, Magnesium Level 2.4 09/01/17 06:30: White Blood Count 11.0, Red Blood Count 3.83L, Hemoglobin 11.7, Hematocrit 36, Mean Corpuscular Volume 94, Mean Corpuscular Hemoglobin 31, Mean Corpuscular Hemoglobin Concent 33, Red Cell Distribution Width 16.3H, Platelet Count 209, Mean Platelet Volume 10.0, Neutrophils (%) (Auto) 76H, Lymphocytes (%) (Auto) 18 , Monocytes (%) (Auto) 6, Eosinophils (%) (Auto) 0, Basophils (%) (Auto) 0, Neutrophils # (Auto) 8.3H, Lymphocytes # (Auto) 2.0, Monocytes # (Auto) 0.6, Eosinophils # (Auto) 0.0, Basophils # (Auto) 0.0, B-Type Natriuretic Peptide < 10.0 09/01/17 09:34: Blood Gas Puncture Site LT BRACHIAL, Blood Gas Patient Temperature 100.0, Arterial Blood pH 7.40, Arterial Blood Partial Pressure CO2 37, Arterial Blood Partial Pressure O2 106H, Arterial Blood HCO3 22L, Arterial Blood Total CO2 23.2 , Arterial Blood Oxygen Saturation 99, Arterial Blood Base Excess -1.9, Don Test YES-POS, Blood Gas Ventilator Setting NO, Blood Gas Inspired Oxygen 24% 09/01/17 11:56: Glucometer 95 09/01/17 16:14: Glucometer 109 09/01/17 21:00: Glucometer 103 09/02/17 05:10: Glucometer 98 09/02/17 07:39: White Blood Count 7.8, Red Blood Count 3.68L, Hemoglobin 11.0L, Hematocrit 37, Mean Corpuscular Volume 101H, Mean Corpuscular Hemoglobin 30, Mean Corpuscular Hemoglobin Concent 30L, Red Cell Distribution Width 15.1H, Platelet Count 238, Mean Platelet Volume 9.0, Neutrophils (%) (Auto) 57, Lymphocytes (%) (Auto) 35, Monocytes (%) (Auto) 6, Eosinophils (%) (Auto) 2, Basophils (%) (Auto) 0, Neutrophils # (Auto) 4.4, Lymphocytes # (Auto) 2.8, Monocytes # (Auto) 0.5, Eosinophils # (Auto) 0.2, Basophils # (Auto) 0.0, Sodium Level 143, Potassium Level 3.3L, Chloride Level 106, Carbon Dioxide Level 24, Anion Gap 13, Blood Urea Nitrogen 7, Creatinine 0.61, Estimat Glomerular Filtration Rate > 60, BUN/ Creatinine Ratio 11, Glucose Level 90, Calcium Level 8.7, Total Bilirubin 0.3, Aspartate Amino Transf (AST/SGOT) 26, Alanine Aminotransferase (ALT/SGPT) 28, Alkaline Phosphatase 76, Total Protein 6.0L, Albumin 3.1L 09/02/17 10:51: Glucometer 108 09/02/17 16:30: Glucometer 105 09/02/17 20:30: Glucometer 104 09/03/17 05:17: Glucometer 99 09/03/17 11:30: Glucometer 107 Microbiology 08/30/17 Blood Culture - Preliminary, Resulted No growth 08/31/17 MRSA Screen - Final, Complete MRSA not isolated Laboratory Tests 08/30/17 22:25 08/31/17 01:00 08/31/17 05:40 09/01/17 05:00 09/01/17 06:30 09/02/17 07:39 Pending Labs Microbiology Date/Time Source Procedure Growth Status 08/30/17 22:35 Peripheral Rt Ac Blood Culture - Preliminary No growth Resulted 08/30/17 22:25 Peripheral Rt Ac Blood Culture - Preliminary No growth Resulted 08/31/17 01:45 Nasal MRSA Screen - Final MRSA not isolated Complete Laboratory Tests 08/30/17 22:00: Blood Gas Puncture Site RIGHT RADIAL, Blood Gas Patient Temperature 98.3, Arterial Blood pH 7.19, Arterial Blood Partial Pressure CO2 42, Arterial Blood Partial Pressure O2 81, Arterial Blood HCO3 16, Arterial Blood Total CO2 17.1, Arterial Blood Oxygen Saturation 95, Arterial Blood Base Excess -10.9, Don Test POSITIVE, Blood Gas Ventilator Setting NO, Blood Gas Inspired Oxygen 5L 08/30/17 22:25: White Blood Count 27.9, Red Blood Count 5.03, Hemoglobin 15.2, Hematocrit 44, Mean Corpuscular Volume 88, Mean Corpuscular Hemoglobin 30, Mean Corpuscular Hemoglobin Concent 35, Red Cell Distribution Width 15.0, Platelet Count 382, Mean Platelet Volume 9.8, Neutrophils (%) (Auto) 66, Lymphocytes (%) (Auto) 28, Monocytes (%) (Auto) 5, Eosinophils (%) (Auto) 1, Basophils (%) (Auto) 0, Neutrophils # (Auto) 18.5, Lymphocytes # (Auto) 7.7, Monocytes # (Auto) 1.5, Eosinophils # (Auto) 0.2, Basophils # (Auto) 0.1, Neutrophils % (Manual) 58, Lymphocytes % (Manual) 31, Monocytes % (Manual) 5, Eosinophils % (Manual) 2, Basophils % (Manual) 0, Band Neutrophils 4, Blood Morphology Comment NORMAL, Prothrombin Time 14.3, INR Comment 1.1, Activated Partial Thromboplast Time 30, Sodium Level 145, Potassium Level 3.5, Chloride Level 104, Carbon Dioxide Level 14, Anion Gap 27, Blood Urea Nitrogen 10, Creatinine 0.99, Estimat Glomerular Filtration Rate 60, BUN/Creatinine Ratio 10, Glucose Level 259, Lactic Acid Level 16.51, Calcium Level 9.4, Magnesium Level 2.5, Total Bilirubin 0.2, Aspartate Amino Transf (AST/SGOT) 38, Alanine Aminotransferase (ALT/SGPT) 42, Alkaline Phosphatase 121, Total Creatine Kinase 106, Creatine Kinase MB 1.3, Troponin I < 0.30, B-Type Natriuretic Peptide 40.0, Total Protein 7.9, Albumin 4.0, TSH [place] Testing 4.10, Serum Alcohol < 10 08/30/17 23:05: Blood Gas Puncture Site RIGHT RADIAL, Blood Gas Patient Temperature 98.3, Arterial Blood pH 7.22, Arterial Blood Partial Pressure CO2 61, Arterial Blood Partial Pressure O2 175, Arterial Blood HCO3 24, Arterial Blood Total CO2 25.9, Arterial Blood Oxygen Saturation 99, Arterial Blood Base Excess -2.8, Don Test POSITIVE, Blood Gas Ventilator Setting YES, Blood Gas Inspired Oxygen 100% 08/30/17 23:19: Urine Color YELLOW, Urine Clarity CLEAR, Urine pH 6, Urine Specific [place] 1.020, Urine Protein 3+, Urine Glucose (UA) NEGATIVE, Urine Ketones 1+, Urine Nitrite NEGATIVE, Urine Bilirubin NEGATIVE, Urine Urobilinogen NORMAL, Urine Leukocyte Esterase NEGATIVE, Urine RBC (Auto) 1+, Urine RBC RARE, Urine WBC NONE , Urine Squamous Epithelial Cells NONE, Urine Crystals NONE, Urine Bacteria NEGATIVE, Urine Casts PRESENT, Urine Hyaline Casts 0-2, Urine Mucus SMALL, Urine Culture Indicated NO, Urine Opiates Screen NEGATIVE, Urine Oxycodone Screen NEGATIVE, Urine Methadone Screen NEGATIVE, Urine Propoxyphene Screen NEGATIVE, Urine Barbiturates Screen NEGATIVE, Ur Tricyclic Antidepressants Screen NEGATIVE, Urine Phencyclidine Screen NEGATIVE, Urine Amphetamines Screen NEGATIVE, Urine Methamphetamines Screen NEGATIVE, Urine Benzodiazepines Screen POSITIVE, Urine Cocaine Screen NEGATIVE, Urine Cannabinoids Screen NEGATIVE 08/31/17 01:00: White Blood Count 24.4, Red Blood Count 4.50, Hemoglobin 13.6, Hematocrit 38, Mean Corpuscular Volume 85, Mean Corpuscular Hemoglobin 30, Mean Corpuscular Hemoglobin Concent 36, Red Cell Distribution Width 14.8, Platelet Count 279, Mean Platelet Volume 9.5, Neutrophils (%) (Auto) 88, Lymphocytes (%) (Auto) 6, Monocytes (%) (Auto) 6, Eosinophils (%) (Auto) 0, Basophils (%) (Auto) 0, Neutrophils # (Auto) 21.4, Lymphocytes # (Auto) 1.6, Monocytes # (Auto) 1.4, Eosinophils # (Auto) 0.0, Basophils # (Auto) 0.0, Sodium Level 145, Potassium Level 3.6, Chloride Level 107, Carbon Dioxide Level 24, Anion Gap 14, Blood Urea Nitrogen 9, Creatinine 0.77, Estimat Glomerular Filtration Rate > 60, BUN/ Creatinine Ratio 12, Glucose Level 106, Lactic Acid Level 3.58, Calcium Level 8.1 08/31/17 04:18: Blood Gas Puncture Site R RAD, Blood Gas Patient Temperature 96.5, Arterial Blood pH 7.36, Arterial Blood Partial Pressure CO2 46, Arterial Blood Partial Pressure O2 79, Arterial Blood HCO3 26, Arterial Blood Total CO2 27.0, Arterial Blood Oxygen Saturation 97, Arterial Blood Base Excess 0.5, Don Test YES-POS, Blood Gas Ventilator Setting YES, Blood Gas Inspired Oxygen 70% FIO2 08/31/17 05:40: White Blood Count 20.9, Red Blood Count 4.67, Hemoglobin 14.1, Hematocrit 40, Mean Corpuscular Volume 86, Mean Corpuscular Hemoglobin 30, Mean Corpuscular Hemoglobin Concent 35, Red Cell Distribution Width 15.2, Platelet Count 256, Mean Platelet Volume 10.2, Neutrophils (%) (Auto) 90, Lymphocytes (%) (Auto) 7, Monocytes (%) (Auto) 2, Eosinophils (%) (Auto) 1, Basophils (%) (Auto) 0, Neutrophils # (Auto) 18.8, Lymphocytes # (Auto) 1.4, Monocytes # (Auto) 0.5, Eosinophils # (Auto) 0.2, Basophils # (Auto) 0.0, Sodium Level 143, Potassium Level 4.2, Chloride Level 107, Carbon Dioxide Level 21, Anion Gap 15, Blood Urea Nitrogen 9, Creatinine 0.76, Estimat Glomerular Filtration Rate > 60, BUN/ Creatinine Ratio 12, Glucose Level 116, Calcium Level 8.1, Phosphorus Level 2.2 , Magnesium Level 2.0, Total Bilirubin 0.2, Aspartate Amino Transf (AST/SGOT) 37 , Alanine Aminotransferase (ALT/SGPT) 37, Alkaline Phosphatase 95, Total Protein 6.5, Albumin 3.3 08/31/17 11:38: Glucometer 98 08/31/17 17:20: Glucometer 98 08/31/17 23:17: Glucometer 112 09/01/17 04:05: Blood Gas Puncture Site R RAD, Blood Gas Patient Temperature 97.1, Arterial Blood pH 7.37, Arterial Blood Partial Pressure CO2 44, Arterial Blood Partial Pressure O2 67, Arterial Blood HCO3 25, Arterial Blood Total CO2 26.3, Arterial Blood Oxygen Saturation 95, Arterial Blood Base Excess 0.1, Don Test YES-POS, Blood Gas Ventilator Setting YES, Blood Gas Inspired Oxygen 24% 09/01/17 05:00: Sodium Level 144, Potassium Level 4.6, Chloride Level 113, Carbon Dioxide Level 17, Anion Gap 14, Blood Urea Nitrogen 8, Creatinine 0.61, Estimat Glomerular Filtration Rate > 60, BUN/Creatinine Ratio 13, Glucose Level 93, Calcium Level 8.0, Phosphorus Level 2.9, Magnesium Level 2.4 09/01/17 06:30: White Blood Count 11.0, Red Blood Count 3.83, Hemoglobin 11.7, Hematocrit 36, Mean Corpuscular Volume 94, Mean Corpuscular Hemoglobin 31, Mean Corpuscular Hemoglobin Concent 33, Red Cell Distribution Width 16.3, Platelet Count 209, Mean Platelet Volume 10.0, Neutrophils (%) (Auto) 76, Lymphocytes (%) (Auto) 18 , Monocytes (%) (Auto) 6, Eosinophils (%) (Auto) 0, Basophils (%) (Auto) 0, Neutrophils # (Auto) 8.3, Lymphocytes # (Auto) 2.0, Monocytes # (Auto) 0.6, Eosinophils # (Auto) 0.0, Basophils # (Auto) 0.0, B-Type Natriuretic Peptide < 10.0 09/01/17 09:34: Blood Gas Puncture Site LT BRACHIAL, Blood Gas Patient Temperature 100.0, Arterial Blood pH 7.40, Arterial Blood Partial Pressure CO2 37, Arterial Blood Partial Pressure O2 106, Arterial Blood HCO3 22, Arterial Blood Total CO2 23.2, Arterial Blood Oxygen Saturation 99, Arterial Blood Base Excess -1.9, Don Test YES-POS, Blood Gas Ventilator Setting NO, Blood Gas Inspired Oxygen 24% 09/01/17 11:56: Glucometer 95 09/01/17 16:14: Glucometer 109 09/01/17 21:00: Glucometer 103 09/02/17 05:10: Glucometer 98 09/02/17 07:39: White Blood Count 7.8, Red Blood Count 3.68, Hemoglobin 11.0, Hematocrit 37, Mean Corpuscular Volume 101, Mean Corpuscular Hemoglobin 30, Mean Corpuscular Hemoglobin Concent 30, Red Cell Distribution Width 15.1, Platelet Count 238, Mean Platelet Volume 9.0, Neutrophils (%) (Auto) 57, Lymphocytes (%) (Auto) 35, Monocytes (%) (Auto) 6, Eosinophils (%) (Auto) 2, Basophils (%) (Auto) 0, Neutrophils # (Auto) 4.4, Lymphocytes # (Auto) 2.8, Monocytes # (Auto) 0.5, Eosinophils # (Auto) 0.2, Basophils # (Auto) 0.0, Sodium Level 143, Potassium Level 3.3, Chloride Level 106, Carbon Dioxide Level 24, Anion Gap 13, Blood Urea Nitrogen 7, Creatinine 0.61, Estimat Glomerular Filtration Rate > 60, BUN/ Creatinine Ratio 11, Glucose Level 90, Calcium Level 8.7, Total Bilirubin 0.3, Aspartate Amino Transf (AST/SGOT) 26, Alanine Aminotransferase (ALT/SGPT) 28, Alkaline Phosphatase 76, Total Protein 6.0, Albumin 3.1 09/02/17 10:51: Glucometer 108 09/02/17 16:30: Glucometer 105 09/02/17 20:30: Glucometer 104 09/03/17 05:17: Glucometer 99 09/03/17 11:30: Glucometer 107 Discharge Home Medications: Active Scripts Active Azithromycin 250 Mg Tablet 500 Mg PO DAILY 5 Days Reported Amlodipine Besylate 5 Mg Tablet 5 Mg PO DAILY Quetiapine Fumarate 100 Mg Tablet 100 Mg PO HS Lisinopril 10 Mg Tablet 10 Mg PO DAILY LAST FILLED 08/02/17 #30 Amitriptyline HCl 25 Mg Tablet 25 Mg PO DAILY Duloxetine HCl 60 Mg Capsule.dr 60 Mg PO DAILY Ventolin Hfa (Albuterol Sulfate) 18 Gm Hfa.aer.ad 2 Puff IH Q4H PRN Alprazolam 0.25 Mg Tablet 0.25 Mg PO TID PRN Gabapentin 600 Mg Tablet 600 Mg PO QID Instructions to patient/family Please see electronic discharge instructions given to patient. Clinical Quality Measures DVT/VTE Risk/Contraindication: Risk Factor Score Per Nursin RFS Level Per Nursing on Admit: 4+=Very High HARVEY LINDSEY DO Sep 04, 2017 19:43
== END 2017-09-03 13:45 | disposition home or self-care (01) | DRG 208 ==
LOC: EDUNIT# 21:42 → ER 21:43 → ICU 23:00 → 4TH 09-01 14:00
PROVIDERS: ADMIT Family Medicine; ATTEND Family Medicine
PROC: 5A1945Z Respiratory Ventilation, 24-96 Consecutive Hours (ICD-10-PCS; principal; 2017-08-30)
DX: J96.01 Acute respiratory failure with hypoxia (principal); G40.909 Epilepsy, unspecified, not intractable, without status epilepticus; E87.2 Acidosis; I46.9 Cardiac arrest, cause unspecified; E66.2 Morbid (severe) obesity with alveolar hypoventilation; A41.9 Sepsis, unspecified organism; J18.9 Pneumonia, unspecified organism; Z68.43 Body mass index [BMI] 50.0-59.9, adult; J44.9 Chronic obstructive pulmonary disease, unspecified; R00.1 Bradycardia, unspecified; E78.2 Mixed hyperlipidemia; F17.210 Nicotine dependence, cigarettes, uncomplicated; Z86.718 Personal history of other venous thrombosis and embolism; Z87.440 Personal history of urinary (tract) infections; Z87.442 Personal history of urinary calculi; F41.9 Anxiety disorder, unspecified; F32.9 Major depressive disorder, single episode, unspecified; F10.20 Alcohol dependence, uncomplicated; I10 Essential (primary) hypertension
CPT/HCPCS: 31500; 36415; 70450; 71045; 72125; 72170; 80048; 80053; 80306; 80320; 81000; 82550; 82553; 82805; 82962; 83605; 83735; 83880; 84100; 84443; 84484; 85007; 85025; 85027; 85610; 85730; 87040; 87081; 93005; 93041; 93306; 94002; 94003; 94640; 94760; 94799; 96361; 96365; 96375

== ENCOUNTER 2017-10-29 11:38 | Emergency (ER) | payer MEDICAID ==
[~2017-10-29 11:38] MED LIST changes: +AZIT250T12 PO; +LISI10TA2 PO; +QUET100T69 PO
--- OUTSIDE RECORDS SUMMARY | 2017-10-29 11:45 | XMS REPORT ---
Author Author KADEN CHAVIRA Organization [facility] Address [address] [place] [address] Care Team Providers Care Visual Basic .Net Developer Name Role Phone KADEN CHAVIRA Unavailable PROBLEMS Type Condition ICD9-CM Code [id number] Code Onset Dates Condition Status SNOMED Code Problem Substance abuse F19.10 Active 32421989 Problem Panic disorder with agoraphobia F40.01 Active 51360762 Problem Hypertension, benign I10 Active 61237741 Problem Seasonal affective disorder F39 Active 267817698 Problem PTSD (post-traumatic stress disorder) F43.10 Active [id number] ALLERGIES No Information SOCIAL HISTORY Never Assessed PLAN OF CARE VITAL SIGNS MEDICATIONS Unknown Medications RESULTS No Results PROCEDURES No Known procedures IMMUNIZATIONS No Known Immunizations MEDICAL (GENERAL) HISTORY Type Description Date Medical History Essential hypertension, benign Medical History arthritis Medical History scoliosis Medical History hip bursitis Medical History chronic back pain Medical History depression Medical History TMJ Medical History carpal tunnel Medical History neuropathy Medical History degenerative disc disease Surgical History cholecystectomy 2007 Surgical History hysterectomy 2006 Surgical History carpal tunnel release Surgical History renal lithotripsy 2002 Hospitalization History Surgeries Hospitalization History childbirth Hospitalization History DVT Hospitalization History drug overdose Hospitalization History pulmonary embolism 02/2015 Hospitalization History Suicide attempt, ETOH Intoxication, substance abuse, right hand laceration 01/23/16
--- OUTSIDE RECORDS SUMMARY | 2017-10-29 11:45 | XMS REPORT ---
Author Author KADEN CHAVIRA Organization [facility] Address [address] [place] [address] Care Team Providers Care Resource Director Name Role Phone KADEN CHAVIRA Unavailable PROBLEMS Type Condition ICD9-CM Code [id number] Code Onset Dates Condition Status SNOMED Code Problem Substance abuse F19.10 Active 92693041 Problem Panic disorder with agoraphobia F40.01 Active 06807010 Problem Hypertension, benign I10 Active 98807445 Problem Seasonal affective disorder F39 Active 466718289 Problem PTSD (post-traumatic stress disorder) F43.10 Active [id number] ALLERGIES No Information SOCIAL HISTORY Never Assessed PLAN OF CARE VITAL SIGNS MEDICATIONS Unknown Medications RESULTS No Results PROCEDURES Procedure Date Ordered Result Body Site Alcohol and/or drug services November 09, 2016 IMMUNIZATIONS No Known Immunizations MEDICAL (GENERAL) HISTORY [...]
--- OUTSIDE RECORDS SUMMARY | 2017-10-29 11:46 | XMS REPORT ---
Author Author KADEN CHAVIRA Organization [facility] Address [address] [place] [address] Care Team Providers Care Front Office Secretary Name Role Phone KADEN CHAVIRA Unavailable PROBLEMS Type Condition ICD9-CM Code [id number] Code Onset Dates Condition Status SNOMED Code Problem Substance abuse F19.10 Active 39883962 Problem Panic disorder with agoraphobia F40.01 Active 69824153 Problem Hypertension, benign I10 Active 14396854 Problem Seasonal affective disorder F39 Active 085514166 Problem PTSD (post-traumatic stress disorder) F43.10 Active [id number] ALLERGIES No Information SOCIAL HISTORY Never Assessed PLAN OF CARE VITAL SIGNS MEDICATIONS Unknown Medications RESULTS No Results PROCEDURES Procedure Date Ordered Result Body Site Alcohol and/or drug services November 12, 2016 IMMUNIZATIONS No Known Immunizations MEDICAL (GENERAL) [...]
--- OUTSIDE RECORDS SUMMARY | 2017-10-29 11:46 | XMS REPORT ---
Author Author KADEN CHAVIRA Organization [facility] Address [address] [place] [address] Care Team Providers Care Shovel Engineer Name Role Phone KADEN CHAVIRA Unavailable PROBLEMS Type Condition ICD9-CM Code [id number] Code Onset Dates Condition Status SNOMED Code Problem Substance abuse F19.10 Active 47972901 Problem Panic disorder with agoraphobia F40.01 Active 88667569 Problem Hypertension, benign I10 Active 32404052 Problem Seasonal affective disorder F39 Active 613929512 Problem PTSD (post-traumatic stress disorder) F43.10 Active [id number] ALLERGIES No Information SOCIAL HISTORY Never Assessed [...]
== END 2017-10-29 12:05 | disposition left against medical advice (07) ==
LOC: EDUNIT# 11:38 → ER 11:40
DX: F41.0 Panic disorder [episodic paroxysmal anxiety] (principal); R06.02 Shortness of breath

== ENCOUNTER 2017-11-03 16:59 | Inpatient (IN) | payer MEDICAID ==
[2017-11-03] VITALS (11 sets, daily range): BP systolic 140–164; BP diastolic 86–113
[~2017-11-03] VITALS: Ht 149.9 cm; Wt 122.2 kg
--- NOTE | 2017-11-03 17:25 | ED General ---
General Chief Complaint: Overdose Stated Complaint: OD Source of Information: Patient Exam Limitations: No Limitations History of Present Illness Date Seen by Provider: Nov 03, 2017 Time Seen by Provider: 17:20 Initial Comments The patient is a 47-year-old white female well-known to this institution. She has had 112 previous contacts most of them in the emergency room. She presents today after the EMS was called to her home. She had apparently overdosed on prescription medications and intended to do so. These medications were Seroquel 100 mg which was filled on October 29 number 30. There are 18 remaining in the bottle. This would put her either 5 or 6 ahead depending on start date. The other medication was amitriptyline. There were 15-25 mg tablets filled on the fifth to be used one at at bedtime. It is unknown how many of these are remaining if any but there should have been 9 or 10. She was awake and conversant a few hours ago and is now deeply somnolent. Timing/Duration: 4-6 Hours Allergies and Home Medications Allergies Coded Allergies: No Known Drug Allergies (Unverified , 01/01/17) Home Medications Albuterol Sulfate 18 Gm Hfa.aer.ad, 2 PUFF IH Q4H PRN for SHORTNESS OF BREATH, ( Reported) Alprazolam 0.25 Mg Tablet, 0.25 MG PO TID PRN for ANXIETY, (Reported) Amitriptyline HCl 25 Mg Tablet, 25 MG PO DAILY, (Reported) Amlodipine Besylate 5 Mg Tablet, 5 MG PO DAILY, (Reported) Azithromycin 250 Mg Tablet, 500 MG PO DAILY Prescribed by: CHESTER FERRARI on 09/03/17 1124 Duloxetine HCl 60 Mg Capsule.dr, 60 MG PO DAILY, (Reported) Gabapentin 600 Mg Tablet, 600 MG PO QID, (Reported) Lisinopril 10 Mg Tablet, 10 MG PO DAILY, (Reported) LAST FILLED 08/02/17 #30 Quetiapine Fumarate 100 Mg Tablet, 100 MG PO HS, (Reported) Constitutional: other (the patient is deeply somnolent with sonorous snoring. No review of systems is possible.) Past Msxydzm-Hrbjyu-Gkwhyp Hx Patient Social History Alcohol Beverage of Choice: Vodka Drug of Choice: METH, THC, PILLS-OPIATES/BENZO'S Type Used: Cigarettes 2nd Hand Smoke Exposure: Yes Recent Hopitalizations: No Immunizations Up To Date Tetanus Booster (TDap): Unknown Date of Pneumonia Vaccine: Apr 26, 2015 Date of Influenza Vaccine: Jul 10, 2017 Seasonal Allergies Seasonal Allergies: No Surgeries History of Surgeries: Yes Surgeries: Gallbladder, Hysterectomy, Orthopedic, Renal, Tubal Ligation Respiratory History of Respiratory Disorde: Yes (HX OF P.E.--OFF ANTICOAGULANTS FOR OVER A YEAR, PER PT ON 05/23/17) Respiratory Disorders: Pneumonia, Chronic Bronchitis, Pulmonary Embolism Currently Using CPAP: No Currently Using BIPAP: No Cardiovascular History of Cardiac Disorders: Yes Cardiac Disorders: Hypertension Neurological History of Neurological Disord: Yes (PSUEDOSEIZURES) Neurological Disorders: Headaches /Migraines, Seizure Disorder 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 System Hx 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 Disorders: No Sexually Transmitted Disease: No HIV/AIDS: No Female 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 Disorders: 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 [employer]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 Genitourinary History of Genitourinary Disor: Yes (URETERAL STENT) Genitourinary Disorders: Kidney Infection, Kidney Stones, UTI-Chronic Gastrointestinal History of Gastrointestinal Di: Yes (S/P NATHALIE) Gastrointestinal Disorders: Gall Bladder Disease Musculoskeletal History of Musculoskeletal Dis: Yes (MOST ARE SELF-REPORTED, WITH [place] MEDICAL DOCUMENTATION OF THESE CONDITIONS) Musculoskeletal Disorders: Degenerate Disk Disease, Arthritis, Fibromyalgia, Back Injury, Scoliosis, Chronic Back Pain Endocrine History of Endocrine Disorders: Yes (MORBID OBESITY) HEENT History of HEENT Disorders: Yes (TMJ PROBLEMS, PER PT. EXTENSIVE DENTAL CARIES/ MULTIPLE MISSING TEETH) Cancer History of Cancer: No Psychosocial History of Psychiatric Problem: Yes Behavioral Health Disorders: Pseudo Seizures, Sleep Difficulties, Anxiety, Suicide Attempts, Depression Integumentary History of Skin or Integumenta: No Blood Transfusions History of Blood Disorders: No Family Medical History Family Medial History: Alcoholism 19 FATHER (grandfather) Alzheimer's disease 19 MOTHER (grandmother) Arthritis 19 FATHER Cardiovascular disease 19 FATHER 19 MOTHER Cataracts 19 MOTHER Coronary thrombosis 19 FATHER Dementia 19 MOTHER (grandparents) Diabetes mellitus 19 MOTHER Drug abuse 19 FATHER Glaucoma 19 FATHER (grandfather) Headache disorder 19 FATHER Hypercholesterolemia 19 FATHER Hypertension 19 FATHER Myocardial infarction 19 FATHER Parkinson's disease 19 MOTHER Prostate cancer 19 MOTHER (uncle brother of mother) Psychosocial problem 19 FATHER Respiratory disorder 19 FATHER (grandfather) Seizure disorder 19 MOTHER No Family History of: AIDS Abdominal aortic aneurysm Vargas's disease Aphasia Asthma Cancer of mouth Colon cancer Completed stroke Congenital disease Congenital heart disease Cystic fibrosis Deafness or hearing loss Dysphasia Fibrocystic disease of breast Gastroenteritis Infertility Kidney disease Neoplasm Severe allergy Thyroid disease Tuberculosis Visual disorder Physical Exam Vital Signs Capillary Refill : General Appearance: Other (morbidly obese, in a deep sleep state.) Eyes: Bilateral Eye Normal Inspection HEENT: Other (tongue and lips are dry and crusty) Neck: Normal Inspection Respiratory: Chest Non Tender Cardiovascular: Regular Rate, Rhythm, No Edema, No Gallop, No JVD, No Murmur, Normal Peripheral Pulses Gastrointestinal: Other (huge and soft.) Back: Normal Inspection, No CVA Tenderness, No Vertebral Tenderness Extremity: Normal Capillary Refill, Normal Inspection, Normal Range of Motion, Non Tender, No Calf Tenderness, No Pedal Edema Neurologic/Psychiatric: Alert, Oriented x3, No Motor/Sensory Deficits, Normal Mood/Affect Skin: Normal Color, Warm/Dry Lymphatic: No Adenopathy Date of ETT Placement: Aug 30, 2017 Time of ETT Placement: 2234 Laceration Repair : Suture Size: 4-0 Progress/Results/Core Measures Suspected Sepsis SIRS Temperature: Pulse: Respiratory Rate: Blood Pressure / Mean: Results/Orders Vital Signs/I&O Capillary Refill : Departure Impression Impression: Primary Impression: intentional overdose prescription meds Departure-Patient Inst. Referrals: HARVEY LINDSEY DO (PCP/Family) Primary Care Physician Patient Instructions: ALCOHOL AND SUBSTANCE ABUSE SHAYLEE LINO MD Nov 03, 2017 17:25
[2017-11-03 17:53] LABS: BILIRUBIN,URINE NEGATIVE (NEGATIVE); CLARITY,URINE CLEAR; COLOR,URINE YELLOW; GLUCOSE, URINE (UA) NEGATIVE (NEGATIVE); KETONES,URINE NEGATIVE (NEGATIVE); LEUKOCYTE ESTERASE ,URINE NEGATIVE (NEGATIVE); NITRITE,URINE NEGATIVE (NEGATIVE); PH,URINE 6 (5-9); PROTEIN,URINE NEGATIVE (NEGATIVE); UROBILINOGEN,URINE NORMAL (NORMAL)
[2017-11-03 17:56] LABS: BACTERIA,URINE FEW /HPF; WBC,URINE RARE /HPF
[2017-11-03 18:11] LABS: BASOPHILS % (AUTO) 0 % (0-10); EOSINOPHILS # (AUTO) 0.1 10^3/uL (0.0-0.3); EOSINOPHILS % (AUTO) 1 % (0-10); HEMATOCRIT 43 % (35-52); HEMOGLOBIN 14.5 G/DL (11.5-16.0); LYMPHOCYTES # (AUTO) 1.8 X 10^3 (1.0-4.0); LYMPHOCYTES % (AUTO) 13 % (12-44); MEAN CORPUSCULAR HEMOGLOBIN 30 PG (25-34); MEAN CORPUSCULAR HGB CONC 34 G/DL (32-36); MEAN CORPUSCULAR VOLUME 90 FL (80-99); MEAN PLATELET VOLUME 10.7 FL (7.4-10.4); MONOCYTES # (AUTO) 0.5 X 10^3 (0.0-1.0); MONOCYTES % (AUTO) 4 % (0-12); NEUTROPHILS # (AUTO) 11.5 X 10^3 (1.8-7.8); NEUTROPHILS % (AUTO) 83 % (42-75); PLATELET COUNT 242 10^3/uL (130-400); RED CELL DISTRIBUTION WIDTH 13.9 % (10.0-14.5); WHITE BLOOD COUNT 13.9 10^3/uL (4.3-11.0)
[2017-11-03 18:16] LABS: AMPHETAMINE SCREEN, URINE NEGATIVE (NEGATIVE); BARBITURATE SCREEN URINE NEGATIVE (NEGATIVE); BENZODIAZEPINES SCREEN URINE POSITIVE (NEGATIVE); CANNABINOID SCREEN, URINE POSITIVE (NEGATIVE); COCAINE SCREEN URINE NEGATIVE (NEGATIVE); METHADONE STAT NEGATIVE (NEGATIVE); METHAMPHETAMINE SCREEN URINE S NEGATIVE (NEGATIVE); OPIATE SCREEN URINE NEGATIVE (NEGATIVE); OXYCODONE STAT NEGATIVE (NEGATIVE); PROPOXYPHENE STAT NEGATIVE (NEGATIVE); TRICYCLIC ANTIDEPRESSANTS SCRE POSITIVE (NEGATIVE)
[2017-11-03 18:33] LABS: ALANINE AMINOTRANSFERASE 21 U/L (0-55); ALKALINE PHOSPHATASE 84 U/L (40-136); BILIRUBIN,TOTAL 0.2 MG/DL (0.1-1.0); BUN/CREATININE RATIO 13; CALCIUM 9.8 MG/DL (8.5-10.1); CARBON DIOXIDE 29 MMOL/L (21-32); CHLORIDE 105 MMOL/L (98-107); CREATININE SERUM 0.71 MG/DL (0.60-1.30); GFR ESTIMATED > 60; GLUCOSE 111 MG/DL (70-105); POTASSIUM 3.9 MMOL/L (3.6-5.0); SODIUM 142 MMOL/L (135-145); TOTAL PROTEIN 7.2 GM/DL (6.4-8.2)
[2017-11-03 18:35] LABS: ACETAMINOPHEN < 10 UG/ML (10-30)
[2017-11-03] MEDS ORDERED: LORazepam INJ 2 MG/ML (ATIVAN) VIAL IV PRN (19:15)
[2017-11-03] MEDS: NS IV 1000 ML 1,000 ML IV SCH (20:47)
[2017-11-04] VITALS (18 sets, daily range): BP systolic 136–178; BP diastolic 50–110
[2017-11-04] MEDS ORDERED: RT-ALBUTEROL SULF 2.5 MG/3 ML PRE-MIX VIAL INH PRN (00:15)
[2017-11-04] MEDS ORDERED: ACETAMINOPHEN 500 MG TAB (TYLENOL) PO PRN (00:45)
[2017-11-04] MEDS: GABAPENTIN 600 MG (NEURONTIN) TAB PO SCH ×3 (01:05→12:32)
[2017-11-04 03:31] LABS: BASOPHILS % (AUTO) 0 % (0-10); EOSINOPHILS # (AUTO) 0.2 10^3/uL (0.0-0.3); EOSINOPHILS % (AUTO) 1 % (0-10); HEMATOCRIT 42 % (35-52); HEMOGLOBIN 14.1 G/DL (11.5-16.0); LYMPHOCYTES # (AUTO) 2.9 X 10^3 (1.0-4.0); LYMPHOCYTES % (AUTO) 24 % (12-44); MEAN CORPUSCULAR HEMOGLOBIN 30 PG (25-34); MEAN CORPUSCULAR HGB CONC 34 G/DL (32-36); MEAN CORPUSCULAR VOLUME 91 FL (80-99); MEAN PLATELET VOLUME 10.8 FL (7.4-10.4); MONOCYTES # (AUTO) 0.5 X 10^3 (0.0-1.0); MONOCYTES % (AUTO) 4 % (0-12); NEUTROPHILS # (AUTO) 8.7 X 10^3 (1.8-7.8); NEUTROPHILS % (AUTO) 71 % (42-75); PLATELET COUNT 227 10^3/uL (130-400); RED BLOOD COUNT 4.64 10^6/uL (4.35-5.85); WHITE BLOOD COUNT 12.3 10^3/uL (4.3-11.0)
[2017-11-04] MEDS: hydrALAZINE (APESOLINE) 20 MG/ML VIAL IV PRN ×2 (03:47→08:08)
[2017-11-04 03:52] LABS: AMYLASE 27 U/L (25-125); BUN/CREATININE RATIO 16; CARBON DIOXIDE 25 MMOL/L (21-32); CHLORIDE 105 MMOL/L (98-107); CREATININE SERUM 0.63 MG/DL (0.60-1.30); GFR ESTIMATED > 60; GLUCOSE 88 MG/DL (70-105); LIPASE 18 U/L (8-78); MAGNESIUM 1.8 MG/DL (1.8-2.4); POTASSIUM 4.2 MMOL/L (3.6-5.0); SODIUM 140 MMOL/L (135-145)
[2017-11-04] MEDS: NS IV 1000 ML 1,000 ML IV SCH (06:03)
[2017-11-04] MEDS ORDERED: amLODIPine 5 MG (NORVASC) TAB PO SCH ×2 (07:00→09:00)
[2017-11-04] MEDS ORDERED: lisINopril 10 MG (PRINIVIL) TABLET PO SCH ×2 (07:00→09:00)
--- NOTE | 2017-11-04 07:27 | History & Physicial ---
History of Present Illness History of Present Illness Reason for visit/HPI patient states she stating she will has a hard time and took too much amitriptyline. patient states she was anxious and having panic attacks. Patient's daughter is now. Patient stopped seeing mental health. Patient needs evaluation by mental health and put back into counseling. Surgeries gallbladder, hysterectomy in 2 carpal tunnel Date of Admission Nov 03, 2017 at 5:52 pm Time Seen by Provider: 07:22 I consulted on this patient on 11/04/17 07:22 Attending Physician Harvey Gong DO Admitting Physician Harvey Gong DO Consult Allergies and Home Medications Allergies Coded Allergies: No Known Drug Allergies (Unverified , 01/01/17) Home Medications Albuterol Sulfate 18 Gm Hfa.aer.ad, 2 PUFF IH Q4H PRN for SHORTNESS OF BREATH, ( Reported) Alprazolam 0.25 Mg Tablet, 0.25 MG PO TID PRN for ANXIETY, (Reported) Amitriptyline HCl 25 Mg Tablet, 25 MG PO DAILY, (Reported) Amlodipine Besylate 5 Mg Tablet, 5 MG PO DAILY, (Reported) Azithromycin 250 Mg Tablet, 500 MG PO DAILY Prescribed by: CHESTER FERRARI on 09/03/17 1124 Duloxetine HCl 60 Mg Capsule.dr, 60 MG PO DAILY, (Reported) Gabapentin 600 Mg Tablet, 600 MG PO QID, (Reported) Lisinopril 10 Mg Tablet, 10 MG PO DAILY, (Reported) LAST FILLED 08/02/17 #30 Quetiapine Fumarate 100 Mg Tablet, 100 MG PO HS, (Reported) Patient Home Medication List Home Medication List Reviewed: No Past Etmqpfs-Fdkftd-Mloydf Hx Patient Social History Marrital Status: Employed/Student: unemployed Alcohol Use: Denies Use Number of Drinks Today: FF Alcohol Beverage of Choice: Vodka Recreational Drug Use: Yes Drug of Choice: METH, THC, PILLS-OPIATES/BENZO'S Smoking Status: Current Everyday Smoker Former Smoker, Quit: December 24, 2016 Type Used: Cigarettes 2nd Hand Smoke Exposure: Yes Physical Abuse Screen: No Sexual Abuse: No Recent Foreign Travel: No Contact w/other who traveled: No Recent Hopitalizations: No Recent Infectious Disease Expo: No Immunizations Up To Date Tetanus Booster (TDap): Unknown Date of Pneumonia Vaccine: Apr 26, 2015 Date of Influenza Vaccine: Jul 10, 2017 Seasonal Allergies Seasonal Allergies: No Surgeries Yes (CHOLEY/CARPEL TUNNEL) Gallbladder, Hysterectomy, Orthopedic, Renal, Tubal Ligation Respiratory Yes (HX OF P.E.--OFF ANTICOAGULANTS FOR OVER A YEAR, PER PT ON 05/23/17) Asthma, COPD, Pulmonary Embolism Currently Using CPAP: No Currently Using BIPAP: No Cardiovascular Yes Hypertension Neurological Yes (PSUEDOSEIZURES) Headaches /Migraines, Seizure Disorder 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 System Hx 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 Disorders: No Sexually Transmitted Disease: No HIV/AIDS: No Female 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 Disorders: Denies 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 EXTENSIVE DENTAL CARIES/ LEGALLY BLIND) Loss of Vision: Bilateral Cancer No Psychosocial History of Psychiatric Problem: Yes Behavioral Health Disorders: Pseudo Seizures, Sleep Difficulties, Anxiety, Suicide Attempts, Depression Integumentary History of Skin or Integumenta: No Blood Transfusions History of Blood Disorders: No Family Medical History Family Hx: Alcoholism 19 FATHER (grandfather) Alzheimer's disease 19 MOTHER (grandmother) Arthritis 19 FATHER Cardiovascular disease 19 FATHER 19 MOTHER Cataracts 19 MOTHER Coronary thrombosis 19 FATHER Dementia 19 MOTHER (grandparents) Diabetes mellitus 19 MOTHER Drug abuse 19 FATHER Glaucoma 19 FATHER (grandfather) Headache disorder 19 FATHER Hypercholesterolemia 19 FATHER Hypertension 19 FATHER Myocardial infarction 19 FATHER Parkinson's disease 19 MOTHER Prostate cancer 19 MOTHER (uncle brother of mother) Psychosocial problem 19 FATHER Respiratory disorder 19 FATHER (grandfather) Seizure disorder 19 MOTHER No Family History of: AIDS Abdominal aortic aneurysm Vargas's disease Aphasia Asthma Cancer of mouth Colon cancer Completed stroke Congenital disease Congenital heart disease Cystic fibrosis Deafness or hearing loss Dysphasia Fibrocystic disease of breast Gastroenteritis Infertility Kidney disease Neoplasm Severe allergy Thyroid disease Tuberculosis Visual disorder Constitutional: no symptoms reported EENTM: no symptoms reported Respiratory: no symptoms reported Cardiovascular: no symptoms reported Gastrointestinal: no symptoms reported Genitourinary: no symptoms reported Physical Exam Vital Signs Vital Signs - First Documented 11/03/17 11/03/17 11/04/17 17:00 18:40 00:06 Temp 97.3 Pulse 88 Resp 22 B/P (MAP) 170/78 (108) Pulse Ox 94 O2 Delivery Room Air FiO2 21 Capillary Refill : Less Than 3 Seconds General Appearance: No Apparent Distress, WD/WN Eyes: Bilateral Eye Normal Inspection Neck: Full Range of Motion Respiratory: Chest Non Tender, No Accessory Muscle Use, No Respiratory Distress Cardiovascular: Regular Rate, Rhythm, No Murmur Gastrointestinal: Non Tender, Soft Assessment/Plan Assessment and Plan overdosage. Asthma. panic attacks Problems: Admission Diagnosis Admission Status: Observation HARVEY GONG DO Nov 04, 2017 7:27 am
[2017-11-04] MEDS ORDERED: RT-ALBUTEROL SULF 2.5 MG/3 ML PRE-MIX VIAL INH SCH (08:00)
[2017-11-04] MEDS ORDERED: ACETAMINOPHEN 325 MG TABLET/CAPLET (TYLENOL) ONE (08:01)
--- NOTE | 2017-11-04 08:01 | Diagnostic Imaging Report ---
Indication: Respiratory distress. Comparison: Compared to 09/01/2017. Findings: There has been interval extubation. The lungs are well expanded and clear. No failure, effusion or pneumothorax. Impression: Clear chest. Dictated by: Dictated on workstation # [id number]
[2017-11-04] MEDS ORDERED: ACETAMINOPHEN 325 MG TABLET/CAPLET (TYLENOL) PO PRN (08:15)
[2017-11-04] MEDS ORDERED: ENOXAPARIN 40 MG/0.4 ML (LOVENOX) SYR SC SCH (09:00)
[2017-11-04] MEDS ORDERED: CYCL10TA9 PO (10:54)
[2017-11-04] MEDS ORDERED: TRAM50TA2 PO (10:54)
[2017-11-04] MEDS ORDERED: RT-ALBUINH INH (10:54)
[2017-11-04] MEDS ORDERED: MELO15TA39 PO (10:56)
[2017-11-04] MEDS ORDERED: DIPH25CA79 PO (10:56)
--- NOTE | 2017-11-04 17:42 | Discharge Summary ---
Diagnosis/Chief Complaint Date of Admission Nov 03, 2017 at 17:52 Date of Discharge Discharge Time: 17:40 Discharge Diagnosis Drug overdosage. Asthma. Obesity. Epilepsy. Hypertension. Morbid obesity. Panic disorders. Personal history of nicotine dependence Reason Hospital Visit patient states she stating she will has a hard time and took too much amitriptyline. patient states she was anxious and having panic attacks. Patient's daughter is now. Patient stopped seeing mental health. Patient needs evaluation by mental health and put back into counseling. Surgeries gallbladder, hysterectomy in 2 carpal tunnel Discharge Summary Consultations mental health Discharge Physical Examination Allergies: Coded Allergies: No Known Drug Allergies (Unverified , 01/01/17) Vitals & I&Os Vital Signs Date Time Temp Pulse Resp B/P (MAP) Pulse Ox O2 Delivery O2 Flow Rate FiO2 11/04/17 14:30 11/04/17 14:21 85 18 95 Room Air 11/04/17 11:56 99.0 11/04/17 00:06 21 Hospital Course Patient woke up and did better and wanted to go home. Patient evaluated by mental health. Appointments made Labs (last 24 hrs) Laboratory Tests 11/03/17 17:25: Urine Color YELLOW, Urine Clarity CLEAR, Urine pH 6, Urine Specific [place] 1.020, Urine Protein NEGATIVE, Urine Glucose (UA) NEGATIVE, Urine Ketones NEGATIVE, Urine Nitrite NEGATIVE, Urine Bilirubin NEGATIVE, Urine Urobilinogen NORMAL, Urine Leukocyte Esterase NEGATIVE, Urine RBC (Auto) NEGATIVE, Urine RBC NONE, Urine WBC RARE, Urine Squamous Epithelial Cells 10-25H, Urine Crystals NONE, Urine Bacteria FEWH, Urine Casts NONE, Urine Mucus SMALLH, Urine Culture Indicated NO, Urine Opiates Screen NEGATIVE, Urine Oxycodone Screen NEGATIVE, Urine Methadone Screen NEGATIVE, Urine Propoxyphene Screen NEGATIVE, Urine Barbiturates Screen NEGATIVE, Ur Tricyclic Antidepressants Screen POSITIVEH, Urine Phencyclidine Screen NEGATIVE, Urine Amphetamines Screen NEGATIVE, Urine Methamphetamines Screen NEGATIVE, Urine Benzodiazepines Screen POSITIVEH, Urine Cocaine Screen NEGATIVE, Urine Cannabinoids Screen POSITIVEH 11/03/17 18:00: White Blood Count 13.9H, Red Blood Count 4.80, Hemoglobin 14.5, Hematocrit 43, Mean Corpuscular Volume 90, Mean Corpuscular Hemoglobin 30, Mean Corpuscular Hemoglobin Concent 34, Red Cell Distribution Width 13.9, Platelet Count 242, Mean Platelet Volume 10.7H, Neutrophils (%) (Auto) 83H, Lymphocytes (%) (Auto) 13, Monocytes (%) (Auto) 4, Eosinophils (%) (Auto) 1, Basophils (%) (Auto) 0, Neutrophils # (Auto) 11.5H, Lymphocytes # (Auto) 1.8, Monocytes # (Auto) 0.5, Eosinophils # (Auto) 0.1, Basophils # (Auto) 0.0, Sodium Level 142, Potassium Level 3.9, Chloride Level 105, Carbon Dioxide Level 29, Anion Gap 8, Blood Urea Nitrogen 9, Creatinine 0.71, Estimat Glomerular Filtration Rate > 60, BUN/ Creatinine Ratio 13, Glucose Level 111H, Calcium Level 9.8, Total Bilirubin 0.2 , Aspartate Amino Transf (AST/SGOT) 16, Alanine Aminotransferase (ALT/SGPT) 21, Alkaline Phosphatase 84, Total Protein 7.2, Albumin 4.0, Acetaminophen Level < 10L 11/04/17 03:20: White Blood Count 12.3H, Red Blood Count 4.64, Hemoglobin 14.1, Hematocrit 42, Mean Corpuscular Volume 91, Mean Corpuscular Hemoglobin 30, Mean Corpuscular Hemoglobin Concent 34, Red Cell Distribution Width 14.0, Platelet Count 227, Mean Platelet Volume 10.8H, Neutrophils (%) (Auto) 71, Lymphocytes (%) (Auto) 24 , Monocytes (%) (Auto) 4, Eosinophils (%) (Auto) 1, Basophils (%) (Auto) 0, Neutrophils # (Auto) 8.7H, Lymphocytes # (Auto) 2.9, Monocytes # (Auto) 0.5, Eosinophils # (Auto) 0.2, Basophils # (Auto) 0.0, Sodium Level 140, Potassium Level 4.2, Chloride Level 105, Carbon Dioxide Level 25, Anion Gap 10, Blood Urea Nitrogen 10, Creatinine 0.63, Estimat Glomerular Filtration Rate > 60, BUN/ Creatinine Ratio 16, Glucose Level 88, Calcium Level 9.0, Phosphorus Level 4.0, Magnesium Level 1.8, Amylase Level 27, Lipase 18 Laboratory Tests 11/03/17 18:00 11/04/17 03:20 Pending Labs Laboratory Tests 11/03/17 17:25: Urine Color YELLOW, Urine Clarity CLEAR, Urine pH 6, Urine Specific [place] 1.020, Urine Protein NEGATIVE, Urine Glucose (UA) NEGATIVE, Urine Ketones NEGATIVE, Urine Nitrite NEGATIVE, Urine Bilirubin NEGATIVE, Urine Urobilinogen NORMAL, Urine Leukocyte Esterase NEGATIVE, Urine RBC (Auto) NEGATIVE, Urine RBC NONE, Urine WBC RARE, Urine Squamous Epithelial Cells 10-25, Urine Crystals NONE , Urine Bacteria FEW, Urine Casts NONE, Urine Mucus SMALL, Urine Culture Indicated NO, Urine Opiates Screen NEGATIVE, Urine Oxycodone Screen NEGATIVE, Urine Methadone Screen NEGATIVE, Urine Propoxyphene Screen NEGATIVE, Urine Barbiturates Screen NEGATIVE, Ur Tricyclic Antidepressants Screen POSITIVE, Urine Phencyclidine Screen NEGATIVE, Urine Amphetamines Screen NEGATIVE, Urine Methamphetamines Screen NEGATIVE, Urine Benzodiazepines Screen POSITIVE, Urine Cocaine Screen NEGATIVE, Urine Cannabinoids Screen POSITIVE 11/03/17 18:00: White Blood Count 13.9, Red Blood Count 4.80, Hemoglobin 14.5, Hematocrit 43, Mean Corpuscular Volume 90, Mean Corpuscular Hemoglobin 30, Mean Corpuscular Hemoglobin Concent 34, Red Cell Distribution Width 13.9, Platelet Count 242, Mean Platelet Volume 10.7, Neutrophils (%) (Auto) 83, Lymphocytes (%) (Auto) 13 , Monocytes (%) (Auto) 4, Eosinophils (%) (Auto) 1, Basophils (%) (Auto) 0, Neutrophils # (Auto) 11.5, Lymphocytes # (Auto) 1.8, Monocytes # (Auto) 0.5, Eosinophils # (Auto) 0.1, Basophils # (Auto) 0.0, Sodium Level 142, Potassium Level 3.9, Chloride Level 105, Carbon Dioxide Level 29, Anion Gap 8, Blood Urea Nitrogen 9, Creatinine 0.71, Estimat Glomerular Filtration Rate > 60, BUN/ Creatinine Ratio 13, Glucose Level 111, Calcium Level 9.8, Total Bilirubin 0.2, Aspartate Amino Transf (AST/SGOT) 16, Alanine Aminotransferase (ALT/SGPT) 21, Alkaline Phosphatase 84, Total Protein 7.2, Albumin 4.0, Acetaminophen Level < 10 11/04/17 03:20: White Blood Count 12.3, Red Blood Count 4.64, Hemoglobin 14.1, Hematocrit 42, Mean Corpuscular Volume 91, Mean Corpuscular Hemoglobin 30, Mean Corpuscular Hemoglobin Concent 34, Red Cell Distribution Width 14.0, Platelet Count 227, Mean Platelet Volume 10.8, Neutrophils (%) (Auto) 71, Lymphocytes (%) (Auto) 24 , Monocytes (%) (Auto) 4, Eosinophils (%) (Auto) 1, Basophils (%) (Auto) 0, Neutrophils # (Auto) 8.7, Lymphocytes # (Auto) 2.9, Monocytes # (Auto) 0.5, Eosinophils # (Auto) 0.2, Basophils # (Auto) 0.0, Sodium Level 140, Potassium Level 4.2, Chloride Level 105, Carbon Dioxide Level 25, Anion Gap 10, Blood Urea Nitrogen 10, Creatinine 0.63, Estimat Glomerular Filtration Rate > 60, BUN/ Creatinine Ratio 16, Glucose Level 88, Calcium Level 9.0, Phosphorus Level 4.0, Magnesium Level 1.8, Amylase Level 27, Lipase 18 Discharge Home Medications: Active Scripts Active Reported Benadryl (Diphenhydramine HCl) 25 Mg Capsule 75 Mg PO HS Proair Hfa (Albuterol Sulfate) 1 Puff Puff 2 Puff INH TID PRN Amlodipine Besylate 5 Mg Tablet 5 Mg PO DAILY Lisinopril 10 Mg Tablet 10 Mg PO DAILY Amitriptyline HCl 25 Mg Tablet 25 Mg PO HS Duloxetine HCl 60 Mg Capsule.dr 60 Mg PO DAILY Alprazolam 0.25 Mg Tablet 0.25 Mg PO TID PRN Instructions to patient/family Please see electronic discharge instructions given to patient. HARVEY LINDSEY DO Nov 04, 2017 17:42
[2017-11-05] MEDS ORDERED: KCL 20 MEQ TAB (K-DUR) PO SCH (06:00)
[2017-11-05] MEDS ORDERED: MAGNESIUM 1 GM/100 ML IVPB 100 ML IV SCH (06:00)
[2017-11-05] MEDS ORDERED: POTASSIUM CL 10MEQ/50ML IVPB 50 ML IV SCH (06:00)
== END 2017-11-04 14:30 | disposition home or self-care (01) | DRG 918 ==
LOC: EDUNIT# 16:59 → ER 17:00 → ICU 17:52
PROVIDERS: ADMIT Internal Medicine; ATTEND Family Medicine
DX: T43.012A Poisoning by tricyclic antidepressants, intentional self-harm, initial encounter (principal); T43.592A Poisoning by other antipsychotics and neuroleptics, intentional self-harm, initial encounter; E66.01 Morbid (severe) obesity due to excess calories; Z68.43 Body mass index [BMI] 50.0-59.9, adult; F41.0 Panic disorder [episodic paroxysmal anxiety]; F32.9 Major depressive disorder, single episode, unspecified; G40.909 Epilepsy, unspecified, not intractable, without status epilepticus; J45.909 Unspecified asthma, uncomplicated; I10 Essential (primary) hypertension; Z86.718 Personal history of other venous thrombosis and embolism; Z87.891 Personal history of nicotine dependence
CPT/HCPCS: 36415; 71045; 80048; 80053; 80306; 80329; 81000; 82150; 83690; 83735; 84100; 85025; 87081; 93005; 94640

== ENCOUNTER 2017-11-29 16:01 | Emergency (ER) | payer MEDICAID ==
[~2017-11-29] VITALS: Ht 149.9 cm; Wt 118.1 kg
[~2017-11-29 16:01] MED LIST changes: +DIPH25CA79 PO; +MELO15TA39 PO
[2017-11-29] MEDS ORDERED: RT-ALBUTEROL SULF 2.5 MG/3 ML PRE-MIX VIAL INH STA (16:28)
[2017-11-29] MEDS ORDERED: RT-ALBUTEROL/IPRATROPIUM 3 ML (DUONEB) VIAL INH ONE (16:30)
[2017-11-29] MEDS ORDERED: TRAM50TA2 (16:34)
[2017-11-29] MEDS ORDERED: QUET100T69 (16:34)
--- NOTE | 2017-11-29 16:42 | ED Cough/URI ---
General Chief Complaint: Cough/Cold/Flu Symptoms Stated Complaint: SOB Nursing Triage Note: AMBULATORY TO ED WITH REPORT OF SOA. PT IS COUGHING WHEN BROUGHT TO ED 6. PT REPORTS RECENT ADMIT FOR PNEUMONIA. Source: patient Exam Limitations: no limitations (DOMINGO NOBLES MD) History of Present Illness Date Seen by Provider: Nov 29, 2017 Time Seen by Provider: 16:20 Initial Comments Here with report of shortness of air. States that she's had a cough for a few days and fever over the last 2 days but not today. She is concerned about pneumonia. She states that she was recently seen for pneumonia but it appears that she was actually recently seen for drug overdose. Denies nausea or vomiting. She says that she has been using her inhaler and that is not helping. Does smoke and has history of bronchitis frequently. Timing/Duration: getting worse Severity/Quality: moderate, dry cough Prior Episodes/Possible Cause: occasional episodes Modifying Factors: Improves With Albuterol Inhaler Associated Symptoms: cough, fever/chills, nasal congestion, shortness of breath , wheezing (DOMINGO NOBLES MD) Allergies and Home Medications Allergies Coded Allergies: No Known Drug Allergies (Unverified , 01/01/17) Home Medications Albuterol Sulfate 1 Puff Puff, 2 PUFF INH TID PRN for SHORTNESS OF BREATH, ( Reported) Alprazolam 0.25 Mg Tablet, 0.25 MG PO TID PRN for ANXIETY, (Reported) Amitriptyline HCl 25 Mg Tablet, 25 MG PO HS, (Reported) Amlodipine Besylate 5 Mg Tablet, 5 MG PO DAILY, (Reported) Diphenhydramine HCl 25 Mg Capsule, 75 MG PO HS, (Reported) Duloxetine HCl 60 Mg Capsule.dr, 60 MG PO DAILY, (Reported) Lisinopril 10 Mg Tablet, 10 MG PO DAILY, (Reported) Patient Home Medication List Home Medication List Reviewed: Yes (DOMINGO NOBLES MD) Review of Systems Constitutional: see HPI, chills, fever EENTM: no symptoms reported Respiratory: cough, short of breath, wheezing Cardiovascular: no symptoms reported Gastrointestinal: no symptoms reported Musculoskeletal: muscle pain (bodyaches), No muscle stiffness (DOMINGO NOBLES MD) All Other Systems Reviewed Negative Unless Noted: Yes (DOMINGO NOBLES MD) Past Zhqbfgl-Sijsbq-Bdgdgl Hx Past Med/Social Hx: Reviewed Nursing Past Med/Soc Hx (DOMINGO NOBLES MD) Patient Social History Alcohol Use: Past History Alcohol Beverage of Choice: Vodka Recreational Drug Use: Yes (HX INTENTIONAL OD, NARCOTIC ABUSE) Drug of Choice: METH, THC, PILLS-OPIATES/BENZO'S Smoking Status: Current Everyday Smoker Type Used: Cigarettes Former Smoker, Quit: December 24, 2016 2nd Hand Smoke Exposure: Yes Recent Foreign Travel: No Contact w/Someone Who Travel: No Recent Infectious Disease Expo: No Recent Hopitalizations: No (DOMINGO NOBLES MD) Immunizations Up To Date Tetanus Booster (TDap): Unknown Date of Pneumonia Vaccine: Apr 26, 2015 Date of Influenza Vaccine: Jul 10, 2017 (DOMINGO NOBLES MD) Seasonal Allergies Seasonal Allergies: No (DOMINGO NOBLES MD) Past Medical History Surgeries: Yes (NATHALIE/CARPEL TUNNEL) Gallbladder, Hysterectomy, Orthopedic, Renal, Tubal Ligation Respiratory: Yes (HX OF P.E.--OFF ANTICOAGULANTS FOR OVER A YEAR, PER PT ON ) Pneumonia, Chronic Bronchitis, Pulmonary Embolism Currently Using CPAP: No Currently Using BIPAP: No Cardiac: Yes Hypertension Neurological: Yes (PSUEDOSEIZURES) Headaches /Migraines, Seizure Disorder : No 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 Disorders: No Female 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 EXTENSIVE DENTAL CARIES/LEGALLY BLIND) Loss of Vision: Bilateral Cancer: No Psychosocial: Yes Pseudo Seizures, Sleep Difficulties, Anxiety, Suicide Attempts, Depression Integumentary: No Blood Disorders: No (DOMINGO NOBLES MD) Family Medical History Reviewed Nursing Family Hx Alcoholism 19 FATHER (grandfather) Alzheimer's disease 19 MOTHER (grandmother) Arthritis 19 FATHER Cardiovascular disease 19 FATHER 19 MOTHER Cataracts 19 MOTHER Coronary thrombosis 19 FATHER Dementia 19 MOTHER (grandparents) Diabetes mellitus 19 MOTHER Drug abuse 19 FATHER Glaucoma 19 FATHER (grandfather) Headache disorder 19 FATHER Hypercholesterolemia 19 FATHER Hypertension 19 FATHER Myocardial infarction 19 FATHER Parkinson's disease 19 MOTHER Prostate cancer 19 MOTHER (uncle brother of mother) Psychosocial problem 19 FATHER Respiratory disorder 19 FATHER (grandfather) Seizure disorder 19 MOTHER (DOMINGO NOBLES MD) Alcoholism 19 FATHER (grandfather) Alzheimer's disease 19 MOTHER (grandmother) Arthritis 19 FATHER Cardiovascular disease 19 FATHER 19 MOTHER Cataracts 19 MOTHER Coronary thrombosis 19 FATHER Dementia 19 MOTHER (grandparents) Diabetes mellitus 19 MOTHER Drug abuse 19 FATHER Glaucoma 19 FATHER (grandfather) Headache disorder 19 FATHER Hypercholesterolemia 19 FATHER Hypertension 19 FATHER Myocardial infarction 19 FATHER Parkinson's disease 19 MOTHER Prostate cancer 19 MOTHER (uncle brother of mother) Psychosocial problem 19 FATHER Respiratory disorder 19 FATHER (grandfather) Seizure disorder 19 MOTHER No Family History of: AIDS Abdominal aortic aneurysm [place]ancock's disease Aphasia Asthma Cancer of mouth Colon cancer Completed stroke Congenital disease Congenital heart disease Cystic fibrosis Deafness or hearing loss Dysphasia Fibrocystic disease of breast Gastroenteritis Infertility Kidney disease Neoplasm Severe allergy Thyroid disease Tuberculosis Visual disorder (SHAYLEE LINO MD) Physical Exam Vital Signs Vital Signs - First Documented 11/29/17 16:02 Temp 96.6 Pulse 94 Resp 20 B/P (MAP) 144/116 (125) Pulse Ox 96 O2 Delivery Room Air (SHAYLEE LINO MD) Vital Signs Capillary Refill : Less Than 3 Seconds (DOMINGO NOBLES MD) General Appearance: WD/WN, no apparent distress HEENT: PERRL/EOMI, pharyngeal erythema Neck: full range of motion, supple Respiratory: wheezing Cardiovascular: regular rate, rhythm, no murmur Gastrointestinal: non tender, soft Extremities: non-tender, normal inspection Neurologic/Psychiatric: alert, oriented x 3 Skin: normal color, warm/dry (DOMINGO NOBLES MD) Procedures/Interventions Date of ETT Placement: Aug 30, 2017 Time of ETT Placement: 2234 (DOMINGO NOBLES MD) Suture Size: 4-0 (DOMINGO NOBLES MD) Progress/Results/Core Measures Suspected Sepsis Recent Fever Within 48 Hours: No Infection Criteria Present: Suspected New Infection New/Unexplained Altered Menta: No Sepsis Screen: Possible Sepsis Risk Sepsis Diagnosis: SIRS Temperature:96.6 Pulse: 94 Respiratory Rate: 20 Blood Pressure 144 /116 Mean: 125 (DOMINGO NOBLES MD) Results/Orders My Orders Orders - SHAYLEE LINO MD Methylprednisolone Sod Succ (Solu-Medrol (11/29/17 17:45) (SHAYLEE LINO MD) Medications Given in ED Current Medications Medications Dose Ordered Sig/Garry Route Start Time Stop Time Status Last Admin Dose Admin Albuterol/ Ipratropium 3 ml ONCE ONCE INH 11/29/17 16:30 11/29/17 16:31 DC 11/29/17 16:37 3 ML (SHAYLEE LINO MD) Vital Signs/I&O 11/29/17 11/29/17 16:02 16:38 Temp 96.6 Pulse 94 Resp 20 B/P (MAP) 144/116 (125) Pulse Ox 96 92 O2 Delivery Room Air Room Air (SHAYLEE LINO MD) Vital Signs/I&O Capillary Refill : Less Than 3 Seconds (DOMINGO NOBLES MD) Blood Pressure Mean: 125 Progress Note : Progress Note Seen and evaluated. Two-view chest x-ray ordered. DuoNeb and albuterol treatment ordered. Monitor patient. (DOMINGO NOBLES MD) Diagnostic Imaging Diagonstic Imaging: Xray Plain Films/CT/US/NM/MRI: chest Comments VIA [place], [place] NAME: TERENCE FUNK [facility] REC#: [id number] PT STATUS: REG ER : 1970 PHYSICIAN: DOMINGO NOBLES MD ADMIT DATE: 11/29/17/ER Draft Date of Exam:11/29/17 CHEST PA/LAT (2 VIEW) INDICATION: Cough and shortness of breath. COMPARISON: 11/04/2017 FINDINGS: Two views of the chest are obtained. Heart size is normal. The pulmonary vessels appear unremarkable. There is no pneumothorax, mediastinal widening or pleural fluid. The lungs are clear. The osseous structures appear unremarkable. IMPRESSION: No acute abnormality is demonstrated. Dictated on workstation # [id number] Dict: 11/29/17 1712 Trans: 11/29/17 1715 [facility] [id number] Interpreted by: ERIC ADAMSON DO Electronically signed by: (DOMINGO NOBLES MD) Departure Communication (Admissions) 0640 Dr. Nobles is involved in an acute trauma and asked that I complete the discharge sequence. (SHAYLEE LINO MD) Impression Primary Impression: acute bronchitis Disposition: 01 HOME, SELF-CARE Condition: Stable/Unchanged Departure-Patient Inst. Decision time for Depature: 17:47 (SHAYLEE LINO MD) Referrals: HARVEY LINDSEY DO (PCP/Family) Primary Care Physician Patient Instructions: Acute Bronchitis, Adult (DC) Add. Discharge Instructions: All discharge instructions reviewed with patient and/or family. Voiced understanding. Take the prednisone as directed. Scripts Prednisone (Prednisone) 20 Mg Tab 20 MG PO DAILY, #5 TAB Take 3 tabs(60mg)daily, decrease by 1/2 tab(10mg)daily. Prov: SHAYLEE LINO MD 11/29/17 DOMINGO NOBLES MD Nov 29, 2017 16:42 SHAYLEE LINO MD Nov 29, 2017 17:48
--- NOTE | 2017-11-29 17:15 | Diagnostic Imaging Report ---
INDICATION: Cough and shortness of breath. COMPARISON: 11/04/2017 FINDINGS: Two views of the chest are obtained. Heart size is normal. The pulmonary vessels appear unremarkable. There is no pneumothorax, mediastinal widening or pleural fluid. The lungs are clear. The osseous structures appear unremarkable. IMPRESSION: No acute abnormality is demonstrated. Dictated by: Dictated on workstation # [id number]
[2017-11-29] MEDS ORDERED: methylPREDNISolone 125 MG (Solu-MEDROL) VIAL IM ONE (17:45)
[2017-11-29] MEDS ORDERED: PRD20T PO (17:48)
[2017-11-29 18:52] VITALS: BP 144/116
== END 2017-11-29 18:55 | disposition home or self-care (01) ==
LOC: EDUNIT# 16:01 → ER 16:02
DX: J20.9 Acute bronchitis, unspecified (principal); G43.909 Migraine, unspecified, not intractable, without status migrainosus; G47.9 Sleep disorder, unspecified; G40.909 Epilepsy, unspecified, not intractable, without status epilepticus; F41.9 Anxiety disorder, unspecified; F32.9 Major depressive disorder, single episode, unspecified; E66.01 Morbid (severe) obesity due to excess calories; F15.90 Other stimulant use, unspecified, uncomplicated; F13.90 Sedative, hypnotic, or anxiolytic use, unspecified, uncomplicated; Z87.442 Personal history of urinary calculi; Z87.891 Personal history of nicotine dependence; Z87.01 Personal history of pneumonia (recurrent); Z86.711 Personal history of pulmonary embolism; Z90.710 Acquired absence of both cervix and uterus; Z98.51 Tubal ligation status; Z90.49 Acquired absence of other specified parts of digestive tract; Z91.5 Personal history of self-harm; Z68.43 Body mass index [BMI] 50.0-59.9, adult
CPT/HCPCS: 71046; 94640; 96372

== ENCOUNTER 2018-04-02 21:44 | Observation (INO) | payer MEDICAID ==
[~2018-04-02] VITALS: Ht 149.9 cm; Wt 117.2 kg
[~2018-04-02 21:44] MED LIST changes: -CODE118S2 PO; +CODE118S4 PO; +PRD20T PO; +TRAM50TA2; +TRAZ-190 PO; -TRAZ100T92 PO
--- NOTE | 2018-04-02 22:50 | ED Respiratory ---
General Chief Complaint: Respiratory Problems Stated Complaint: TROUBLE BREATHING;COUGH Source: patient, family Exam Limitations: no limitations History of Present Illness Date Seen by Provider: Apr 02, 2018 Time Seen by Provider: 22:41 Initial Comments The patient presents to ER by private conveyance with a chief complaint of shortness of breath progressively worsening over the past 2 or 3 days. She's also been coughing a dry cough is nonproductive. No hemoptysis. She's not having any nausea fevers or chills. She does have a history of either asthma or COPD she's not sure but she has no albuterol inhaler and she's been using it without any improvement in her feeling of shortness of breath. She is afraid she might have a pulmonary embolus because several years ago she had a pulmonary embolism those unprovoked. She is no longer on blood thinners or any other estrogen. She does smoke but she is working on quitting and has a nicotine patch on the police she smokes half a pack a day recently. She does not have an IVC filter. She has not had any recent surgeries or periods of immobilization. Allergies and Home Medications Allergies Coded Allergies: No Known Drug Allergies (Unverified , 01/01/17) Home Medications Albuterol Sulfate 1 Puff Puff, 2 PUFF INH TID PRN for SHORTNESS OF BREATH, ( Reported) Alprazolam 0.25 Mg Tablet, 0.25 MG PO TID PRN for ANXIETY, (Reported) Amitriptyline HCl 25 Mg Tablet, 25 MG PO HS, (Reported) Amlodipine Besylate 5 Mg Tablet, 5 MG PO DAILY, (Reported) Diphenhydramine HCl 25 Mg Capsule, 75 MG PO HS, (Reported) Duloxetine HCl 60 Mg Capsule.dr, 60 MG PO DAILY, (Reported) Lisinopril 10 Mg Tablet, 10 MG PO DAILY, (Reported) Prednisone 20 Mg Tab, 20 MG PO DAILY Take 3 tabs(60mg)daily, decrease by 1/2 tab(10mg)daily. Prescribed by: SHAYLEE LINO on 11/29/17 3177 Patient Home Medication List Home Medication List Reviewed: Yes Review of Systems Constitutional: No chills, No diaphoresis, No fever, No malaise EENTM: No ear discharge, No ear pain, No mouth pain, No nose congestion, No throat pain Respiratory: cough (occ dry); No dyspnea on exertion, No hemoptysis, No orthopnea, No phlegm; short of breath; No stridor; wheezing Cardiovascular: No chest pain, No palpitations, No syncope, No vascular heart diseas Gastrointestinal: No abdominal pain, No constipation, No diarrhea, No nausea Genitourinary: No discharge, No dysuria Musculoskeletal: No back pain, No joint pain Skin: No lesions, No rash Psychiatric/Neurological: Denies Headache, Denies Numbness Past Dxkipql-Rzigmk-Oldngj Hx Patient Social History Alcohol Use: Occasionally Uses Alcohol Beverage of Choice: Vodka Recreational Drug Use: Yes Drug of Choice: METH, THC, PILLS-OPIATES/BENZO'S Smoking Status: Current Everyday Smoker Type Used: Cigarettes Former Smoker, Quit: December 24, 2016 2nd Hand Smoke Exposure: Yes Recent Foreign Travel: No Contact w/Someone Who Travel: No Recent Hopitalizations: No Immunizations Up To Date Tetanus Booster (TDap): Unknown Date of Pneumonia Vaccine: Apr 26, 2015 Date of Influenza Vaccine: Jul 10, 2017 Seasonal Allergies Seasonal Allergies: No Past Medical History Surgeries: Yes (NATHALIE/CARPEL TUNNEL) Gallbladder, Hysterectomy, Orthopedic, Renal, Tubal Ligation Respiratory: Yes (HX OF P.E.--OFF ANTICOAGULANTS FOR OVER A YEAR, PER PT ON ) Pneumonia, Chronic Bronchitis, Pulmonary Embolism Currently Using CPAP: No Currently Using BIPAP: No Cardiac: Yes Hypertension Neurological: Yes (PSUEDOSEIZURES) Headaches /Migraines, Seizure Disorder 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 Disorders: No Female 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 Disorders: 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 EXTENSIVE DENTAL CARIES/LEGALLY BLIND) Loss of Vision: Bilateral Cancer: No Psychosocial: Yes Pseudo Seizures, Sleep Difficulties, Anxiety, Suicide Attempts, Depression Integumentary: No Blood Disorders: No Family Medical History Alcoholism 19 FATHER (grandfather) Alzheimer's disease 19 MOTHER (grandmother) Arthritis 19 FATHER Cardiovascular disease 19 FATHER 19 MOTHER Cataracts 19 MOTHER Coronary thrombosis 19 FATHER Dementia 19 MOTHER (grandparents) Diabetes mellitus 19 MOTHER Drug abuse 19 FATHER Glaucoma 19 FATHER (grandfather) Headache disorder 19 FATHER Hypercholesterolemia 19 FATHER Hypertension 19 FATHER Myocardial infarction 19 FATHER Parkinson's disease 19 MOTHER Prostate cancer 19 MOTHER (uncle brother of mother) Psychosocial problem 19 FATHER Respiratory disorder 19 FATHER (grandfather) Seizure disorder 19 MOTHER No Family History of: AIDS Abdominal aortic aneurysm [place]'s disease Aphasia Asthma Cancer of mouth Colon cancer Completed stroke Congenital disease Congenital heart disease Cystic fibrosis Deafness or hearing loss Dysphasia Fibrocystic disease of breast Gastroenteritis Infertility Kidney disease Neoplasm Severe allergy Thyroid disease Tuberculosis Visual disorder Physical Exam Vital Signs - First Documented 04/02/18 04/02/18 22:35 23:02 Temp 98.8 Pulse 99 Resp 22 B/P (MAP) 145/112 (123) Pulse Ox 93 O2 Delivery Room Air O2 Flow Rate 2.00 Capillary Refill : Height: 4'11.00" Weight: 260lbs. 5.0oz. 118.575960ay; 54.0 BMI Method:Estimated General Appearance: no apparent distress, obese Eyes: Bilateral Eye Normal Inspection, Bilateral Eye PERRL, Bilateral Eye EOMI HEENT: PERRL/EOMI, pharynx normal Respiratory: chest non-tender, no respiratory distress, no accessory muscle use , decreased breath sounds, wheezing, expiration (Prolonged) Cardiovascular: normal peripheral pulses, regular rate, rhythm, no edema Gastrointestinal: normal bowel sounds, non tender, soft Extremities: normal range of motion, non-tender, normal inspection, no pedal edema, no calf tenderness, normal capillary refill Neurologic/Psychiatric: alert, normal mood/affect, oriented x 3 Skin: normal color, warm/dry Procedures/Interventions Date of ETT Placement: Aug 30, 2017 Time of ETT Placement: 2234 Suture Size: 4-0 Progress/Results/Core Measures Suspected Sepsis SIRS Temperature: Pulse: Respiratory Rate: Laboratory Tests 04/02/18 23:38: White Blood Count 8.8 Blood Pressure / Mean: Laboratory Tests 04/02/18 23:38: Creatinine 0.59L, Platelet Count 217, Total Bilirubin 0.2 Results/Orders Lab Results Laboratory Tests Test 04/02/18 23:38 Range/Units White Blood Count 8.8 4.3-11.0 10^3/uL Red Blood Count 4.04 L 4.35-5.85 10^6/uL Hemoglobin 12.5 11.5-16.0 G/DL Hematocrit 37 35-52 % Mean Corpuscular Volume 92 80-99 FL Mean Corpuscular Hemoglobin 31 25-34 PG Mean Corpuscular Hemoglobin Concent 34 32-36 G/DL Red Cell Distribution Width 14.6 H 10.0-14.5 % Platelet Count 217 130-400 10^3/uL Mean Platelet Volume 10.5 H 7.4-10.4 FL Neutrophils (%) (Auto) 68 42-75 % Lymphocytes (%) (Auto) 23 12-44 % Monocytes (%) (Auto) 6 0-12 % Eosinophils (%) (Auto) 2 0-10 % Basophils (%) (Auto) 0 0-10 % Neutrophils # (Auto) 6.0 1.8-7.8 X 10^3 Lymphocytes # (Auto) 2.0 1.0-4.0 X 10^3 Monocytes # (Auto) 0.5 0.0-1.0 X 10^3 Eosinophils # (Auto) 0.2 0.0-0.3 10^3/uL Basophils # (Auto) 0.0 0.0-0.1 10^3/uL D-Dimer 0.61 H 0.00-0.49 UG/ML Sodium Level 137 135-145 MMOL/L Potassium Level 3.7 3.6-5.0 MMOL/L Chloride Level 101 98-107 MMOL/L Carbon Dioxide Level 25 21-32 MMOL/L Anion Gap 11 5-14 MMOL/L Blood Urea Nitrogen 7 7-18 MG/DL Creatinine 0.59 L 0.60-1.30 MG/DL Estimat Glomerular Filtration Rate > 60 BUN/Creatinine Ratio 12 Glucose Level 136 H 70-105 MG/DL Calcium Level 8.7 8.5-10.1 MG/DL Corrected Calcium 9.3 8.5-10.1 MG/DL Total Bilirubin 0.2 0.1-1.0 MG/DL Aspartate Amino Transf (AST/SGOT) 56 H 5-34 U/L Alanine Aminotransferase (ALT/SGPT) 66 H 0-55 U/L Alkaline Phosphatase 90 40-136 U/L Troponin I < 0.30 <0.30 NG/ML C-Reactive Protein High Sensitivity 3.89 H 0.00-0.50 MG/DL Total Protein 5.9 L 6.4-8.2 GM/DL Albumin 3.3 3.2-4.5 GM/DL Serum Test, Qualitative NEGATIVE NEGATIVE My Orders Orders - EL BYRNES Cbc With Automated Diff (04/02/18 22:46) Comprehensive Metabolic Panel (04/02/18 22:46) Hs C Reactive Protein (04/02/18 22:46) Fibrin Degradation Products (04/02/18 22:46) Troponin I (04/02/18 22:46) Albuterol/Ipra Inhalation Soln (Duoneb I (04/02/18 23:00) Saline Lock/Iv-Start (04/02/18 22:46) Svn Small Volume Nebulizer (04/02/18 22:46) Ekg Tracing (04/02/18 22:46) Hcg,Qualitative Serum (04/02/18 23:28) Chest Pa/Lat (2 View) (04/03/18 00:01) Saline Lock/Iv-Start (04/03/18 00:25) Ns Iv 1000 Ml (Sodium Chloride 0.9%) (04/03/18 00:25) Medications Given in ED Current Medications Medications Dose Ordered Sig/Garry Route Start Time Stop Time Status Last Admin Dose Admin Albuterol/ Ipratropium 3 ml ONCE ONCE INH 04/02/18 23:00 04/02/18 23:01 DC 04/02/18 23:42 3 ML Vital Signs/I&O 04/02/18 04/02/18 22:35 23:02 Temp 98.8 Pulse 99 Resp 22 B/P (MAP) 145/112 (123) Pulse Ox 93 94 O2 Delivery Room Air Nasal Cannula O2 Flow Rate 2.00 Capillary Refill : Progress Note #1: Time: 23:27 Progress Note She does have wheezing sore and give her a DuoNeb breathing treatment and reevaluate. We'll get a chest x-ray some basic labs as included d-dimer since she is concerned about a PE. She does not have any risk factors for PE other than smoking and obesity but she says her first pulmonary embolus and was unprovoked as well. Progress Note #2: Time: 00:22 Progress Note Patient's d-dimer is minorly elevated at 0.61. We'll going to go ahead and obtain a CT angiogram of her chest unless she objects. 0040: Only IV access we can get is a 22-gauge near the right axilla. Return to go ahead and start her on some Lovenox put her upstairs and try to get a VQ scan in the morning instead since this will be an adequate IV access for a CT angiogram. ECG Initial ECG Impression Date: Apr 02, 2018 Initial ECG Impression Time: 22:58 Initial ECG Rate: 87 Initial ECG Rhythm: Normal Sinus Initial ECG Intervals: Normal Initial ECG Impression: Normal Comment No ST elevation or depression Diagnostic Imaging Diagonstic Imaging: Xray Plain Films/CT/US/NM/MRI: chest (1v) Comments No acute cardiopulmonary processes noted. Reviewed: Reviewed by Me Diagonstic Imaging: CT (angio) Plain Films/CT/US/NM/MRI: chest Reviewed: Reviewed by Me Departure Communication (Admissions) Time/Spoke to Admitting Phy: 00:45 Discussed case lab imaging EKG with Dr. LINDSEY and he agrees with Lovenox and would like consultation with cardiology. Time/Spoke to Consulting Phy: 00:59 Discussed case lab imaging findings with Dr. Mayfield and he is okay with the plan for Lovenox and VQ scan in the morning. Impression Primary Impression: Chest pain Qualified Codes: R07.9 - Chest pain, unspecified Additional Impressions: Pulmonary embolism Qualified Codes: I26.99 - Other pulmonary embolism without acute cor pulmonale Dyspnea Qualified Codes: R06.02 - Shortness of breath Disposition: 09 ADMITTED INPATIENT (obs) Condition: Stable Admissions Decision to Admit Reason: Admit from ER (General) Decision to Admit/Date: Apr 03, 2018 Time/Decision to Admit Time: 01:01 Departure-Patient Inst. Referrals: HARVEY LINDSEY DO (PCP/Family) Primary Care Physician Copy Copies To 1: HARVEY LINDSEY TITUS J Apr 02, 2018 22:50
[2018-04-02] MEDS ORDERED: RT-ALBUTEROL/IPRATROPIUM 3 ML (DUONEB) VIAL INH ONE (23:00)
[2018-04-02 23:58] LABS: BASOPHILS % (AUTO) 0 % (0-10); EOSINOPHILS # (AUTO) 0.2 10^3/uL (0.0-0.3); EOSINOPHILS % (AUTO) 2 % (0-10); HEMATOCRIT 37 % (35-52); HEMOGLOBIN 12.5 G/DL (11.5-16.0); LYMPHOCYTES % (AUTO) 23 % (12-44); MEAN CORPUSCULAR HEMOGLOBIN 31 PG (25-34); MEAN CORPUSCULAR HGB CONC 34 G/DL (32-36); MEAN CORPUSCULAR VOLUME 92 FL (80-99); MEAN PLATELET VOLUME 10.5 FL (7.4-10.4); MONOCYTES # (AUTO) 0.5 X 10^3 (0.0-1.0); MONOCYTES % (AUTO) 6 % (0-12); NEUTROPHILS % (AUTO) 68 % (42-75); PLATELET COUNT 217 10^3/uL (130-400); RED BLOOD COUNT 4.04 10^6/uL (4.35-5.85); RED CELL DISTRIBUTION WIDTH 14.6 % (10.0-14.5); WHITE BLOOD COUNT 8.8 10^3/uL (4.3-11.0)
[2018-04-03 00:11] LABS: ALANINE AMINOTRANSFERASE 66 U/L (0-55); ALBUMIN 3.3 GM/DL (3.2-4.5); ALKALINE PHOSPHATASE 90 U/L (40-136); BILIRUBIN,TOTAL 0.2 MG/DL (0.1-1.0); BUN/CREATININE RATIO 12; CALCIUM 8.7 MG/DL (8.5-10.1); CARBON DIOXIDE 25 MMOL/L (21-32); CHLORIDE 101 MMOL/L (98-107); CREATININE SERUM 0.59 MG/DL (0.60-1.30); GFR ESTIMATED > 60; GLUCOSE 136 MG/DL (70-105); POTASSIUM 3.7 MMOL/L (3.6-5.0); SODIUM 137 MMOL/L (135-145); TOTAL PROTEIN 5.9 GM/DL (6.4-8.2)
[2018-04-03] MEDS ORDERED: NS IV 1000 ML 1,000 ML IV SCH (00:25)
[2018-04-03] MEDS ORDERED: ENOXAPARIN 60 MG/0.6 ML (LOVENOX) SYR SC ONE (01:15)
[2018-04-03 01:50] VITALS: BP 115/59
[2018-04-03] MEDS ORDERED: CATHETER FLUSH 10 ML SYR IV PRN (02:30)
[2018-04-03] MEDS ORDERED: ACETAMINOPHEN 500 MG TAB (TYLENOL) PO PRN (02:30)
[2018-04-03] MEDS ORDERED: ONDANSETRON 4 MG/2 ML (SDV) Z0FRAN IV PRN (02:30)
[2018-04-03] MEDS: 1/2 NS W/KCL 20 MEQ/L 1,000 ML IV SCH ×3 (02:47→19:34)
[2018-04-03 03:42] VITALS: BP 130/72
[2018-04-03] MEDS: CATHETER FLUSH 10 ML SYR IV SCH ×3 (05:11→20:35)
--- NOTE | 2018-04-03 07:20 | Consultation-Cardiology ---
HPI-Cardiology Cardiology Consultation: Date of Consultation 04/03/18 Date of Admission Attending Physician Eliot Gong DO Admitting Physician Eliot Gong DO Consulting Physician Gabe MAYFIELD MD HPI: Time Seen by Provider: 08:00 Chief Complaint: Shortness of breath This is a 47-year-old lady with history of pulmonary embolism and marijuana abuse who presented to the ER with complains of shortness of breath and chest pain. Chest pain is moderate intensity. /10. She also has history of active smoking. She complains of cough but denies any significant palpitations, syncope, near-syncope, lower extremity swelling. She was previously on Xarelto for pulmonary embolism. Review of Systems-Cardiology Review of Systems Constitutional: As described under HPI; No As described under HPI, No no symptoms reported, No chills, No fever, No lightheadedness Eyes: No As described under HPI, No no symptoms reported, No blindness, No blurred vision, No contact lenses, No drainage, No decreased acuity, No foreign body sensation, No pain, No vision change Ears/Nose/Throat: No As described under HPI, No no symptoms reported, No chronic hearing loss, No ear discharge, No ear pain, No nasal drainage, No ulcerations Respiratory: No no symptoms reported; As described under HPI; No As described under HPI, No cough, No orthopnea; shortness of breath; No SOB with excertion Cardiovascular: No no symptoms reported; As described under HPI; No As described under HPI; chest pain; No edema, No irregular heart rate, No lightheadedness, No palpitations Gastrointestinal: No no symptoms reported, No As described under HPI, No abdomen distended, No abdominal pain, No blood streaked bowels, No constipation , No diarrhea, No nausea, No vomiting, No stool coloration changes Genitourinary: No As described under HPI, No burning, No dysuria, No discharge , No frequency, No flank pain, No hematuria, No urgency : Yes : No Skin: No rash, No skin related problems, No ulcerations Psychiatric/Neurological: No anxiety, No depression, No seizure, No focal weakness, No syncope Hematologic: No bleeding abnormalities VIP-Dldsgm-Ddpdcc Hx Patient Social History Alcohol Use: Occasionally Uses Recreational Drug Use: Yes Drug of Choice: METH, THC, PILLS-OPIATES/BENZO'S Smoking Status: Current Everyday Smoker Type Used: Cigarettes 2nd Hand Smoke Exposure: Yes Recent Foreign Travel: No Recent Infectious Disease Expo: No Hospitalization with Isolation: Denies Physical Abuse Screen: No Sexual Abuse: No Immunizations Up To Date Tetanus Booster (TDap): Unknown Date of Pneumonia Vaccine: Apr 26, 2015 Date of Influenza Vaccine: Jul 10, 2017 Past Medical History PMH As described under Assessment. Family Medical History Family History: Alcoholism 19 FATHER (grandfather) Alzheimer's disease 19 MOTHER (grandmother) Arthritis 19 FATHER Cardiovascular disease 19 FATHER 19 MOTHER Cataracts 19 MOTHER Coronary thrombosis 19 FATHER Dementia 19 MOTHER (grandparents) Diabetes mellitus 19 MOTHER Drug abuse 19 FATHER Glaucoma 19 FATHER (grandfather) Headache disorder 19 FATHER Hypercholesterolemia 19 FATHER Hypertension 19 FATHER Myocardial infarction 19 FATHER Parkinson's disease 19 MOTHER Prostate cancer 19 MOTHER (uncle brother of mother) Psychosocial problem 19 FATHER Respiratory disorder 19 FATHER (grandfather) Seizure disorder 19 MOTHER No Family History of: AIDS Abdominal aortic aneurysm Vargas's disease Aphasia Asthma Cancer of mouth Colon cancer Completed stroke Congenital disease Congenital heart disease Cystic fibrosis Deafness or hearing loss Dysphasia Fibrocystic disease of breast Gastroenteritis Infertility Kidney disease Neoplasm Severe allergy Thyroid disease Tuberculosis Visual disorder Allergies and Home Medications Allergies Coded Allergies: No Known Drug Allergies (Unverified , 04/03/18) Home Medications Albuterol Sulfate 1 Puff Puff, 2 PUFF INH TID PRN for SHORTNESS OF BREATH, ( Reported) Alprazolam 0.25 Mg Tablet, 0.25 MG PO TID PRN for ANXIETY, (Reported) Amitriptyline HCl 25 Mg Tablet, 25 MG PO HS, (Reported) Amlodipine Besylate 5 Mg Tablet, 5 MG PO DAILY, (Reported) Cyclobenzaprine HCl 10 Mg Tablet, 10 MG PO BID PRN for MUSCLE SPASMS, (Reported) Diphenhydramine HCl 25 Mg Capsule, 75 MG PO HS PRN for SLEEP, (Reported) TAKES 3 (25MG) CAPSULES Duloxetine HCl 60 Mg Capsule.dr, 60 MG PO DAILY, (Reported) TAKES ALONG WITH 30MG CAPSULE FOR A TOTAL DAILY DOSE OF 90MG Duloxetine HCl 30 Mg Capsule.dr, 30 MG PO DAILY, (Reported) TAKES ALONG WITH 60MG CAPSULE FOR A TOTAL DAILY DOSE OF 90MG Lisinopril 10 Mg Tablet, 10 MG PO DAILY, (Reported) Meloxicam 15 Mg Tablet, 15 MG PO DAILY, (Reported) Naproxen 500 Mg Tablet, 500 MG PO BID PRN for PAIN-MILD, (Reported) Quetiapine Fumarate 100 Mg Tablet, 100 MG PO HS, (Reported) Patient Home Medication List Home Medication List Reviewed: Yes Physical Exam-Cardiology Physical Exam Vital Signs/I&O 04/03/18 04/03/18 04/03/18 04/03/18 12:00 14:54 16:38 20:00 Temp 97.4 97.8 Pulse 92 83 Resp 22 18 B/P (MAP) 118/78 (91) 129/70 (89) Pulse Ox 84 95 O2 Delivery Nasal Cannula Nasal Cannula Nasal Cannula Nasal Cannula O2 Flow Rate 2.00 2.00 2.00 2.00 04/03/18 04/03/18 20:19 20:19 Temp 97.8 Pulse 84 Resp 18 B/P (MAP) 128/78 (95) Pulse Ox 98 96 O2 Delivery Nasal Cannula Nasal Cannula O2 Flow Rate 2.00 2.00 Capillary Refill : Less Than 3 Seconds Constitutional: appears stated age; No apparent distress; well-developed, well- nourished HEENT: PERRL; No normal ENT inspection, No TMs normal, No pharynx normal, No scleral icterus (R), No scleral icterus (L), No pale conjunctivae (R), No pale conjunctivae (L), No photophobia, No TM abnormal (R), No TM abnormal (L), No pharyngeal erythema, No tonsillar exudate, No other, No discharge, No EOMI; hearing is well preserved; No hard of hearing; oral hygience is good; No ulceration, No xanthelasmas are seen Neck: No carotid bruit; carotid pulses are 2 + bilaterally Respiratory: chest is bilaterally symmetric, lungs clear to auscultation Cardiovascular: regular rate-rhythm; No irregularly irregular, No extra beats, No parasternal heave is noted, No JVD, No edema, No bradycardia, No tachycardia , No point of maximal impulse, No cardiac thrills are palpable; S1 and S2; No gallop/S3, No gallop/S4, No diastolic murmur, No systolic murmur, No friction rub, No click, No other Gastrointestinal: No tender, No soft, No round, No distended, No pulsatile mass , No organomegaly, No guarding, No rebound, No tenderness, No hernia, No mass, No audible bowel sounds, No abnormal bowel sounds, No abdominal bruits, No spleenomegaly, No other Rectal: deferred Extremities: No normal range of motion, No non-tender, No normal inspection, No pedal edema, No calf tenderness, No normal capillary refill, No pelvis stable , No calf tenderness, No inflammation, No pedal edema, No slow capillary refill , No swelling, No other, No abrasion, No clubbing, No cyanosis, No ecchymosis, No laceration, No no lower extremity edema bilateral, No significant edema, No tenderness, No wound Neurologic/Psychiatric: no motor/sensory deficits, alert, normal mood/affect, oriented x 3, power is 5/5 both on sides Skin: No normal color, No warm/dry, No cyanosis, No cool, No diaphoresis, No damp, No ecchymosis, No jaundice, No mottled, No pallor, No rash, No tattoos/ piercings, No ulcerations, No rash on exposed areas, No ulcerations on exposed areas, No other Data Review Labs Laboratory Tests 04/02/18 23:38: White Blood Count 8.8, Red Blood Count 4.04L, Hemoglobin 12.5, Hematocrit 37, Mean Corpuscular Volume 92, Mean Corpuscular Hemoglobin 31, Mean Corpuscular Hemoglobin Concent 34, Red Cell Distribution Width 14.6H, Platelet Count 217, Mean Platelet Volume 10.5H, Neutrophils (%) (Auto) 68, Lymphocytes (%) (Auto) 23 , Monocytes (%) (Auto) 6, Eosinophils (%) (Auto) 2, Basophils (%) (Auto) 0, Neutrophils # (Auto) 6.0, Lymphocytes # (Auto) 2.0, Monocytes # (Auto) 0.5, Eosinophils # (Auto) 0.2, Basophils # (Auto) 0.0, D-Dimer 0.61H, Sodium Level 137, Potassium Level 3.7, Chloride Level 101, Carbon Dioxide Level 25, Anion Gap 11, Blood Urea Nitrogen 7, Creatinine 0.59L, Estimat Glomerular Filtration Rate > 60, BUN/Creatinine Ratio 12, Glucose Level 136H, Calcium Level 8.7, Corrected Calcium 9.3, Total Bilirubin 0.2, Aspartate Amino Transf (AST/SGOT) 56H, Alanine Aminotransferase (ALT/SGPT) 66H, Alkaline Phosphatase 90, Troponin I < 0.30, C-Reactive Protein High Sensitivity 3.89H, Total Protein 5.9L, Albumin 3.3, Serum Test, Qualitative NEGATIVE 04/03/18 08:53: Sodium Level 139, Potassium Level 4.1, Chloride Level 103, Carbon Dioxide Level 28, Anion Gap 8, Blood Urea Nitrogen 6L, Creatinine 0.59L, Estimat Glomerular Filtration Rate > 60, BUN/Creatinine Ratio 10, Glucose Level 102, Calcium Level 8.9, Corrected Calcium 9.3, Total Bilirubin 0.4, Aspartate Amino Transf (AST/ SGOT) 47H, Alanine Aminotransferase (ALT/SGPT) 65H, Alkaline Phosphatase 95, Total Protein 6.4, Albumin 3.5 ECG Impression ECG Initial ECG Rhythm: Normal Sinus Initial ECG Impression: Nonspecific Changes A/P-Cardiology Assessment/Admission Diagnosis Shortness of breath, Chest pain, Marijuana abuse, Active smoking, History of pulmonary embolism Plan Shortness of breath and chest pain. Request echocardiogram. Mildly positive d- dimer. VQ scan pending. Acute coronary syndrome ruled out with negative troponin and EKG. Smoking cessation was strongly recommended. Marijuana abuse, History of PE, VQ scan pending. Elevated LFTs, deferred to Dr. Gong. Thank you for your consultation. Please call me if you have any questions. Oumou Mayfield MD, FACP, FACC, FSCAI, FHRS, CCDS Interventional Cardiology Cardiac Electrophysiology Vascular Medicine and Endovascular Interventions Clinical Quality Measures DVT/VTE Risk/Contraindication: Risk Factor Score Per Nursin RFS Level Per Nursing on Admit: 3=High Gabe MAYFIELD MD Apr 03, 2018 7:20 am
--- NOTE | 2018-04-03 07:27 | Diagnostic Imaging Report ---
INDICATION: Cough and congestion. PA and lateral views were obtained. Comparison made with prior examination 11/29/2017. PA and lateral views were obtained. FINDINGS: The heart size, mediastinal configuration, and pulmonary vascularity are within normal limits. There is no pleural effusion, pneumothorax, or pneumonia. The osseous structures are unremarkable. IMPRESSION: No acute cardiopulmonary abnormality. Dictated by: Dictated on workstation # [id number]
--- NOTE | 2018-04-03 08:39 | History & Physicial ---
History of Present Illness History of Present Illness Reason for visit/HPI Patient came out to the emergency room complaining of shortness of breath and chest pain. Rated chest pain 7 out of 10. Patient states she's been coughing and lost her voice. Patient has a history of smoking. Patient states 3 years ago she had a pulmonary embolism. Patient was put on Hilliard for short period of time. Previous surgeries, gallbladder, 3 carpal tunnel and partial hysterectomy. Patient admits to using pot. Patient states she doesn't take meth. Patient has history of mental problems Date of Admission Apr 03, 2018 at 00:55 Time Seen by Provider: 08:30 I consulted on this patient on 04/03/18 08:34 Attending Physician Eliot Gong DO Admitting Physician Eliot Gong DO Consult Allergies and Home Medications Allergies Coded Allergies: No Known Drug Allergies (Unverified , 04/03/18) Home Medications Albuterol Sulfate 1 Puff Puff, 2 PUFF INH TID PRN for SHORTNESS OF BREATH, ( Reported) Alprazolam 0.25 Mg Tablet, 0.25 MG PO TID PRN for ANXIETY, (Reported) Amitriptyline HCl 25 Mg Tablet, 25 MG PO HS, (Reported) Amlodipine Besylate 5 Mg Tablet, 5 MG PO DAILY, (Reported) Diphenhydramine HCl 25 Mg Capsule, 75 MG PO HS, (Reported) Duloxetine HCl 60 Mg Capsule.dr, 60 MG PO DAILY, (Reported) Lisinopril 10 Mg Tablet, 10 MG PO DAILY, (Reported) Prednisone 20 Mg Tab, 20 MG PO DAILY Take 3 tabs(60mg)daily, decrease by 1/2 tab(10mg)daily. Prescribed by: SHAYLEE LINO on 11/29/17 2521 Patient Home Medication List Home Medication List Reviewed: No Past Ntksjzi-Gmavgl-Ebgomp Hx Patient Social History Marrital Status: Employed/Student: unemployed Alcohol Use: Occasionally Uses Number of Drinks Today: FF Alcohol Beverage of Choice: Vodka Recreational Drug Use: Yes Drug of Choice: METH, THC, PILLS-OPIATES/BENZO'S Smoking Status: Current Everyday Smoker Former Smoker, Quit: December 24, 2016 Type Used: Cigarettes 2nd Hand Smoke Exposure: Yes Physical Abuse Screen: No Sexual Abuse: No Recent Foreign Travel: No Contact w/other who traveled: No Recent Hopitalizations: No Recent Infectious Disease Expo: No Immunizations Up To Date Tetanus Booster (TDap): Unknown Date of Pneumonia Vaccine: Apr 26, 2015 Date of Influenza Vaccine: Jul 10, 2017 Seasonal Allergies Seasonal Allergies: No Surgeries Yes (NATHALIE/CARPEL TUNNEL) Gallbladder, Hysterectomy, Orthopedic, Renal, Tubal Ligation Respiratory Yes (HX OF P.E.--OFF ANTICOAGULANTS FOR OVER A YEAR, PER PT ON 05/23/17) Asthma, COPD, Pulmonary Embolism Currently Using CPAP: No Currently Using BIPAP: No Cardiovascular Yes Hypertension Neurological Yes (PSUEDOSEIZURES) Headaches /Migraines, Seizure Disorder 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 System Hx 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 Disorders: No Sexually Transmitted Disease: No HIV/AIDS: No 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 EXTENSIVE DENTAL CARIES/ LEGALLY BLIND) Loss of Vision: Bilateral Cancer No Psychosocial History of Psychiatric Problem: Yes Behavioral Health Disorders: Pseudo Seizures, Sleep Difficulties, Anxiety, Suicide Attempts, Depression Integumentary History of Skin or Integumenta: No Blood Transfusions History of Blood Disorders: No Family Medical History Family Hx: Alcoholism 19 FATHER (grandfather) Alzheimer's disease 19 MOTHER (grandmother) Arthritis 19 FATHER Cardiovascular disease 19 FATHER 19 MOTHER Cataracts 19 MOTHER Coronary thrombosis 19 FATHER Dementia 19 MOTHER (grandparents) Diabetes mellitus 19 MOTHER Drug abuse 19 FATHER Glaucoma 19 FATHER (grandfather) Headache disorder 19 FATHER Hypercholesterolemia 19 FATHER Hypertension 19 FATHER Myocardial infarction 19 FATHER Parkinson's disease 19 MOTHER Prostate cancer 19 MOTHER (uncle brother of mother) Psychosocial problem 19 FATHER Respiratory disorder 19 FATHER (grandfather) Seizure disorder 19 MOTHER No Family History of: AIDS Abdominal aortic aneurysm [place]'s disease Aphasia Asthma Cancer of mouth Colon cancer Completed stroke Congenital disease Congenital heart disease Cystic fibrosis Deafness or hearing loss Dysphasia Fibrocystic disease of breast Gastroenteritis Infertility Kidney disease Neoplasm Severe allergy Thyroid disease Tuberculosis Visual disorder Constitutional: no symptoms reported EENTM: no symptoms reported Respiratory: cough, short of breath, other (History of pulmonary embolism 3 years ago) Cardiovascular: chest pain Gastrointestinal: no symptoms reported Genitourinary: no symptoms reported : No Physical Exam Vital Signs Vital Signs - First Documented 04/02/18 04/02/18 22:35 23:02 Temp 98.8 Pulse 99 Resp 22 B/P (MAP) 145/112 (123) Pulse Ox 93 O2 Delivery Room Air O2 Flow Rate 2.00 Capillary Refill : Less Than 3 Seconds Height, Weight, BMI Height: 4'11.00" Weight: 258lbs. 7.0oz. [id number]; 52.2 BMI Method:Stated General Appearance: No Apparent Distress, Obese Eyes: Bilateral Eye Normal Inspection HEENT: Normal ENT Inspection Neck: Normal Inspection, Non Tender Respiratory: No Accessory Muscle Use, No Respiratory Distress, Decreased Breath Sounds, Wheezing Cardiovascular: Regular Rate, Rhythm, No Murmur Gastrointestinal: Non Tender, Soft Assessment/Plan Assessment and Plan History of PE. Chest pain. Short of breath. Tobacco usage. History of mental problems.. Elevated liver studies Admission Diagnosis Admission Status: Observation Clinical Quality Measures DVT/VTE Risk/Contraindication: Risk Factor Score Per Nursin RFS Level Per Nursing on Admit: 3=High ELIOT GONG DO Apr 03, 2018 08:39
[2018-04-03 08:53] VITALS: BP 119/63
[2018-04-03] MEDS ORDERED: MELO15TA39 PO (09:21)
[2018-04-03] MEDS ORDERED: DULO30CA48 PO (09:21)
[2018-04-03] MEDS ORDERED: CYCL10TA9 PO (09:21)
[2018-04-03] MEDS ORDERED: NAPR-915 PO (09:21)
[2018-04-03 09:44] LABS: ALANINE AMINOTRANSFERASE 65 U/L (0-55); ALBUMIN 3.5 GM/DL (3.2-4.5); ALKALINE PHOSPHATASE 95 U/L (40-136); BILIRUBIN,TOTAL 0.4 MG/DL (0.1-1.0); BUN/CREATININE RATIO 10; CALCIUM 8.9 MG/DL (8.5-10.1); CARBON DIOXIDE 28 MMOL/L (21-32); CHLORIDE 103 MMOL/L (98-107); CREATININE SERUM 0.59 MG/DL (0.60-1.30); GFR ESTIMATED > 60; GLUCOSE 102 MG/DL (70-105); POTASSIUM 4.1 MMOL/L (3.6-5.0); SODIUM 139 MMOL/L (135-145); TOTAL PROTEIN 6.4 GM/DL (6.4-8.2)
[2018-04-03 12:00] VITALS: BP 118/78
[2018-04-03] MEDS ORDERED: FUROSEMIDE 40 MG/4 ML INJ (LASIX) IVP NR (13:30)
[2018-04-03] MEDS: ENOXAPARIN 60 MG/0.6 ML (LOVENOX) SYR SC SCH (13:51)
[2018-04-03] MEDS: RT-ALBUTEROL/IPRATROPIUM 3 ML (DUONEB) VIAL INH SCH ×4 (14:51→20:19)
[2018-04-03 16:38] VITALS: BP 129/70
[2018-04-03] MEDS ORDERED: MELOXICAM 7.5 MG (MOBIC) TABLET PO NR (16:45)
--- NOTE | 2018-04-03 16:57 | Diagnostic Imaging Report ---
INDICATION: Cough, congestion and shortness of air x2 days. CORRELATION STUDY: Chest radiograph 04/03/2018 . Ventilation perfusion lung scan 01/07/2017. FINDINGS: 43.4 mCi of technetium 99m DTPA for ventilation imaging. Ventilation images demonstrate normal uptake and distribution throughout both lung collier. 5.4 mCi of technetium-99m MAA utilized for perfusion imaging. Multiplanar imaging demonstrates no significant mismatched, peripherally based perfusion defect to suggest pulmonary embolism. IMPRESSION: 1. Unremarkable ventilation-perfusion lung scan. No findings to suggest pulmonary embolism. Dictated by: Dictated on workstation # [id number]
[2018-04-03] MEDS ORDERED: RT-ALBUTEROL SULF 2.5 MG/3 ML PRE-MIX VIAL INH PRN (20:00)
[2018-04-03] MEDS ORDERED: ALPRAZolam 0.25 MG (XANAX) TAB PO PRN (20:00)
[2018-04-03] MEDS ORDERED: HYDROcodone/APAP 5 MG/325 MG (LORTAB) TAB PO NR (20:15)
[2018-04-03 20:19] VITALS: BP 128/78
[2018-04-03] MEDS ORDERED: NON-FORMULARY MEDICATION 1 EA EA (Quetiapine Fumarate 100 MG) PO SCH (21:00)
[2018-04-03] MEDS ORDERED: AMITRIPTYLINE 25 MG (ELAVIL) TAB PO SCH (21:00)
[2018-04-03] MEDS ORDERED: QUEtiapine 100 MG (SEROquel) TAB IMMEDIATE RELEASE PO SCH (21:00)
[2018-04-04 00:20] VITALS: BP 131/76
[2018-04-04] MEDS: ENOXAPARIN 60 MG/0.6 ML (LOVENOX) SYR SC SCH (01:04)
[2018-04-04] MEDS: RT-ALBUTEROL/IPRATROPIUM 3 ML (DUONEB) VIAL INH SCH ×3 (02:37→14:37)
[2018-04-04] MEDS: 1/2 NS W/KCL 20 MEQ/L 1,000 ML IV SCH ×3 (02:53→10:55)
[2018-04-04 04:20] VITALS: BP 122/68
[2018-04-04] MEDS: CATHETER FLUSH 10 ML SYR IV SCH ×2 (05:05→14:32)
[2018-04-04 05:55] LABS: BASOPHILS % (AUTO) 0 % (0-10); EOSINOPHILS # (AUTO) 0.3 10^3/uL (0.0-0.3); EOSINOPHILS % (AUTO) 5 % (0-10); HEMATOCRIT 38 % (35-52); HEMOGLOBIN 12.4 G/DL (11.5-16.0); LYMPHOCYTES # (AUTO) 1.6 X 10^3 (1.0-4.0); LYMPHOCYTES % (AUTO) 26 % (12-44); MEAN CORPUSCULAR HEMOGLOBIN 31 PG (25-34); MEAN CORPUSCULAR HGB CONC 33 G/DL (32-36); MEAN CORPUSCULAR VOLUME 93 FL (80-99); MEAN PLATELET VOLUME 10.7 FL (7.4-10.4); MONOCYTES # (AUTO) 0.5 X 10^3 (0.0-1.0); MONOCYTES % (AUTO) 7 % (0-12); NEUTROPHILS # (AUTO) 3.8 X 10^3 (1.8-7.8); NEUTROPHILS % (AUTO) 62 % (42-75); PLATELET COUNT 219 10^3/uL (130-400); RED BLOOD COUNT 4.05 10^6/uL (4.35-5.85); RED CELL DISTRIBUTION WIDTH 14.9 % (10.0-14.5); WHITE BLOOD COUNT 6.1 10^3/uL (4.3-11.0)
[2018-04-04 06:20] LABS: ALANINE AMINOTRANSFERASE 50 U/L (0-55); ALKALINE PHOSPHATASE 86 U/L (40-136); BILIRUBIN,TOTAL 0.3 MG/DL (0.1-1.0); BUN/CREATININE RATIO 9; CALCIUM 8.8 MG/DL (8.5-10.1); CARBON DIOXIDE 30 MMOL/L (21-32); CHLORIDE 102 MMOL/L (98-107); CREATININE SERUM 0.64 MG/DL (0.60-1.30); GFR ESTIMATED > 60; GLUCOSE 140 MG/DL (70-105); POTASSIUM 4.1 MMOL/L (3.6-5.0); SODIUM 138 MMOL/L (135-145); TOTAL PROTEIN 5.8 GM/DL (6.4-8.2)
[2018-04-04 08:00] VITALS: BP 134/71
--- NOTE | 2018-04-04 08:28 | Progress Note (SOAP) ---
Subjective Time Seen by Provider: 08:25 Subjective/Events-last exam Patient feeling better today. Patient wants to go home today. Lung scan negative. Okay with me for patient be discharged if okay with cardiology Objective Exam Vital Signs Date Time Temp Pulse Resp B/P (MAP) Pulse Ox O2 Delivery O2 Flow Rate FiO2 04/04/18 04:20 97.6 80 20 122/68 (86) 93 Nasal Cannula 2.00 04/04/18 02:37 97 Nasal Cannula 2.00 04/04/18 00:20 97.9 88 20 131/76 (94) 92 Nasal Cannula 2.00 04/03/18 20:19 97.8 84 18 128/78 (95) 96 Nasal Cannula 2.00 04/03/18 20:19 98 Nasal Cannula 2.00 04/03/18 20:00 Nasal Cannula 2.00 04/03/18 16:38 97.8 83 18 129/70 (89) 95 Nasal Cannula 2.00 04/03/18 14:54 Nasal Cannula 2.00 04/03/18 12:00 97.4 92 22 118/78 (91) 84 Nasal Cannula 2.00 04/03/18 08:53 97.1 78 32 119/63 (81) 92 Nasal Cannula 2.00 I & O 04/04/18 07:00 Intake Total 2070 ml Output Total 2000 ml Balance 70 ml Capillary Refill : Less Than 3 Seconds General Appearance: No Apparent Distress, WD/WN HEENT: Normal ENT Inspection Neck: Full Range of Motion Respiratory: No Accessory Muscle Use, No Respiratory Distress Cardiovascular: Regular Rate, Rhythm Gastrointestinal: non tender, soft Results Lab Laboratory Tests 04/03/18 08:53 04/04/18 05:15 Laboratory Tests 04/03/18 08:53: Sodium Level 139, Potassium Level 4.1, Chloride Level 103, Carbon Dioxide Level 28, Anion Gap 8, Blood Urea Nitrogen 6L, Creatinine 0.59L, Estimat Glomerular Filtration Rate > 60, BUN/Creatinine Ratio 10, Glucose Level 102, Calcium Level 8.9, Corrected Calcium 9.3, Total Bilirubin 0.4, Aspartate Amino Transf (AST/ SGOT) 47H, Alanine Aminotransferase (ALT/SGPT) 65H, Alkaline Phosphatase 95, Total Protein 6.4, Albumin 3.5 04/04/18 05:15: Sodium Level 138, Potassium Level 4.1, Chloride Level 102, Carbon Dioxide Level 30, Anion Gap 6, Blood Urea Nitrogen 6L, Creatinine 0.64, Estimat Glomerular Filtration Rate > 60, BUN/Creatinine Ratio 9, Glucose Level 140H, Calcium Level 8.8, Corrected Calcium 9.6, Total Bilirubin 0.3, Aspartate Amino Transf (AST/ SGOT) 32, Alanine Aminotransferase (ALT/SGPT) 50, Alkaline Phosphatase 86, Total Protein 5.8L, Albumin 3.0L, White Blood Count 6.1, Red Blood Count 4.05L, Hemoglobin 12.4, Hematocrit 38, Mean Corpuscular Volume 93, Mean Corpuscular Hemoglobin 31, Mean Corpuscular Hemoglobin Concent 33, Red Cell Distribution Width 14.9H, Platelet Count 219, Mean Platelet Volume 10.7H, Neutrophils (%) ( Auto) 62, Lymphocytes (%) (Auto) 26, Monocytes (%) (Auto) 7, Eosinophils (%) ( Auto) 5, Basophils (%) (Auto) 0, Neutrophils # (Auto) 3.8, Lymphocytes # (Auto) 1.6, Monocytes # (Auto) 0.5, Eosinophils # (Auto) 0.3, Basophils # (Auto) 0.0 Assessment/Plan Assessment/Plan Assess & Plan/Chief Complaint Breathing good. Patient rated go home. Okay with me. If okay with cardiology will discharge today Clinical Quality Measures Admission Status Admission Dx History of PE. Chest pain. Short of breath. Tobacco usage. History of mental problems.. Elevated liver studies DVT/VTE Risk/Contraindication: Risk Factor Score Per Nursin RFS Level Per Nursing on Admit: 3=High HARVEY LINDSEY DO Apr 04, 2018 08:28
[2018-04-04] MEDS ORDERED: NON-FORMULARY MEDICATION 1 EA EA (Amlodipine Besylate 5 MG) PO SCH (09:00)
[2018-04-04] MEDS ORDERED: lisINopril 10 MG (PRINIVIL) TABLET PO SCH (09:00)
[2018-04-04] MEDS ORDERED: DULoxetine 30 MG (CYMBALTA) CAP PO SCH ×2 (09:00)
[2018-04-04] MEDS ORDERED: MELOXICAM 7.5 MG (MOBIC) TABLET PO SCH (09:00)
[2018-04-04] MEDS ORDERED: NON-FORMULARY MEDICATION 1 EA EA (Duloxetine HCl 60 MG) PO SCH (09:00)
[2018-04-04] MEDS ORDERED: amLODIPine 5 MG (NORVASC) TAB PO SCH (09:00)
--- NOTE | 2018-04-04 09:25 | Cardiology Progress Note ---
Cardiology SOAP Progress Note Subjective: No cardiac complaints. Objective: I&O/Vital Signs 04/05/18 00:00 Intake Total 1400 ml Balance 1400 ml Weight (Pounds): 258 Weight (Ounces): 7.0 Weight (Calculated Kilograms): [id number] Constitutional: appears stated age; No apparent distress; well-developed, well- nourished Respiratory: chest is bilaterally symmetric, lungs clear to auscultation Cardiovascular: regular rate-rhythm; No irregularly irregular, No extra beats, No parasternal heave is noted, No JVD, No edema, No bradycardia, No tachycardia , No point of maximal impulse, No cardiac thrills are palpable; S1 and S2; No gallop/S3, No gallop/S4, No diastolic murmur, No systolic murmur, No friction rub, No click, No other Gastrointestional: No tender, No soft, No round, No distended, No pulsatile mass, No organomegaly, No guarding, No rebound, No tenderness, No hernia, No mass, No audible bowel sounds, No abnormal bowel sounds, No abdominal bruits, No spleenomegaly, No other Extremities: No normal range of motion, No non-tender, No normal inspection, No pedal edema, No calf tenderness, No normal capillary refill, No pelvis stable , No calf tenderness, No inflammation, No pedal edema, No slow capillary refill , No swelling, No other, No abrasion, No clubbing, No cyanosis, No ecchymosis, No laceration, No no lower extremity edema bilateral, No significant edema, No tenderness, No wound Neurologic/Psychiatric: no motor/sensory deficits, alert, normal mood/affect, oriented x 3, power is 5/5 both on sides Skin: No normal color, No warm/dry, No cyanosis, No cool, No diaphoresis, No damp, No ecchymosis, No jaundice, No mottled, No pallor, No rash, No tattoos/ piercings, No ulcerations, No rash on exposed areas, No ulcerations on exposed areas, No other Results/Procedures: Labs A/P: Assessment/Dx: Shortness of breath, Chest pain, Marijuana abuse, Active smoking, History of pulmonary embolism Plan: Shortness of breath and chest pain. Echocardiogram did not show any significant cardiac etiology. Mildly positive d-dimer. VQ scan no PE. Acute coronary syndrome ruled out with negative troponin and EKG. Smoking cessation was strongly recommended. Marijuana abuse, History of PE, VQ scan does not show PE Elevated LFTs, deferred to Dr. Gong. Thank you for your consultation. Please call me if you have any questions. Oumou Martinez MD, FACP, FACC, FSCAI, FHRS, CCDS Interventional Cardiology Cardiac Electrophysiology Vascular Medicine and Endovascular Interventions Gabe MARTINEZ MD Apr 04, 2018 09:25
[2018-04-04 12:00] VITALS: BP 138/86
[2018-04-04 15:55] VITALS: BP 136/67
--- NOTE | 2018-04-07 18:57 | Clinic Account Progress/Dx ---
Clinic Account Progress/Dx DIAGNOSIS: Time Seen by Provider: 18:45 Chest pain. Short of breath. Asthma. History of pulmonary embolism. Tobaccoism history. History of depression. Marijuana use HARVEY LINDSEY DO Apr 07, 2018 18:57
== END 2018-04-04 16:57 | disposition home or self-care (01) ==
LOC: EDUNIT# 21:44 → ER 21:45 → 4TH 21:46 → UNDOADMOB 04-03 00:55 → UNDODISOB 04-04 17:50
PROVIDERS: ADMIT Family Medicine; ATTEND Family Medicine
DX: R07.9 Chest pain, unspecified (principal); R06.02 Shortness of breath; J45.909 Unspecified asthma, uncomplicated; I10 Essential (primary) hypertension; J44.9 Chronic obstructive pulmonary disease, unspecified; G40.909 Epilepsy, unspecified, not intractable, without status epilepticus; G43.909 Migraine, unspecified, not intractable, without status migrainosus; F32.9 Major depressive disorder, single episode, unspecified; F41.9 Anxiety disorder, unspecified; F12.90 Cannabis use, unspecified, uncomplicated; F17.210 Nicotine dependence, cigarettes, uncomplicated; R94.5 Abnormal results of liver function studies; Z86.711 Personal history of pulmonary embolism; Z87.440 Personal history of urinary (tract) infections; Z87.442 Personal history of urinary calculi
CPT/HCPCS: 36415; 71046; 78582; 80053; 84484; 84703; 85025; 85379; 86141; 93005; 93306; 94640; 94664; 94760; 96372; G0378

== ENCOUNTER 2018-06-17 21:27 | Emergency (ER) | payer MEDICAID ==
[~2018-06-17] VITALS: Ht 152.4 cm; Wt 118.8 kg
[~2018-06-17 21:27] MED LIST changes: -AMLO5TAB2 PO; +AMLO5TAB7 PO; +NAPR-915 PO
--- NOTE | 2018-06-17 22:02 | ED Lower Extremity ---
General Stated Complaint: L KNEE PAIN Source: patient Exam Limitations: no limitations History of Present Illness Date Seen by Provider: Jun 17, 2018 Time Seen by Provider: 22:05 Initial Comments To ER with left knee pain for 3 months. She arrives by EMS because she did not have a car to drive herself here. No known injury. She reports instability sensation of the knee, stating that it "gives out". Onset: just prior to arrival Severity: moderate Pain/Injury Location: left knee Method of Injury: unknown Modifying Factors: Worse With Movement Allergies and Home Medications Allergies Coded Allergies: No Known Drug Allergies (Unverified , 04/03/18) Home Medications Albuterol Sulfate 1 Puff Puff, 2 PUFF INH TID PRN for SHORTNESS OF BREATH, ( Reported) Alprazolam 0.25 Mg Tablet, 0.25 MG PO TID PRN for ANXIETY, (Reported) Amitriptyline HCl 25 Mg Tablet, 25 MG PO HS, (Reported) Amlodipine Besylate 5 Mg Tablet, 5 MG PO DAILY, (Reported) Cyclobenzaprine HCl 10 Mg Tablet, 10 MG PO BID PRN for MUSCLE SPASMS, (Reported) Diclofenac Sodium 100 Gm Gel..gram., 100 GM TP TID Prescribed by: NUBIA JASON on 06/17/182203 Diphenhydramine HCl 25 Mg Capsule, 75 MG PO HS PRN for SLEEP, (Reported) TAKES 3 (25MG) CAPSULES Duloxetine HCl 60 Mg Capsule.dr, 60 MG PO DAILY, (Reported) TAKES ALONG WITH 30MG CAPSULE FOR A TOTAL DAILY DOSE OF 90MG Duloxetine HCl 30 Mg Capsule.dr, 30 MG PO DAILY, (Reported) TAKES ALONG WITH 60MG CAPSULE FOR A TOTAL DAILY DOSE OF 90MG Lisinopril 10 Mg Tablet, 10 MG PO DAILY, (Reported) Meloxicam 15 Mg Tablet, 15 MG PO DAILY, (Reported) Naproxen 500 Mg Tablet, 500 MG PO BID PRN for PAIN-MILD, (Reported) Quetiapine Fumarate 100 Mg Tablet, 100 MG PO HS, (Reported) Patient Home Medication List Home Medication List Reviewed: Yes Review of Systems Constitutional: see HPI EENTM: see HPI Respiratory: no symptoms reported Cardiovascular: no symptoms reported Genitourinary: no symptoms reported Musculoskeletal: see HPI Skin: no symptoms reported Psychiatric/Neurological: No Symptoms Reported Past Vsdwhod-Cmpkir-Kjepwz Hx Patient Social History Alcohol Beverage of Choice: Vodka Drug of Choice: METH, THC, PILLS-OPIATES/BENZO'S Type Used: Cigarettes Former Smoker, Quit: December 24, 2016 2nd Hand Smoke Exposure: Yes Recent Hopitalizations: No Immunizations Up To Date Tetanus Booster (TDap): Unknown Date of Pneumonia Vaccine: Apr 26, 2015 Date of Influenza Vaccine: Jul 10, 2017 Seasonal Allergies Seasonal Allergies: No Past Medical History Surgeries: Yes (NATHALIE/CARPEL TUNNEL) Gallbladder, Hysterectomy, Orthopedic, Renal, Tubal Ligation Respiratory: Yes (HX OF P.E.--OFF ANTICOAGULANTS FOR OVER A YEAR, PER PT ON ) Pneumonia, Chronic Bronchitis, Pulmonary Embolism Currently Using CPAP: No Currently Using BIPAP: No Cardiac: Yes Hypertension Neurological: Yes (PSUEDOSEIZURES) Headaches /Migraines, Seizure Disorder 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 Disorders: No Female 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 Disorders: 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 EXTENSIVE DENTAL CARIES/LEGALLY BLIND) Loss of Vision: Bilateral Cancer: No Psychosocial: Yes Pseudo Seizures, Sleep Difficulties, Anxiety, Suicide Attempts, Depression Integumentary: No Blood Disorders: No Family Medical History Alcoholism 19 FATHER (grandfather) Alzheimer's disease 19 MOTHER (grandmother) Arthritis 19 FATHER Cardiovascular disease 19 FATHER 19 MOTHER Cataracts 19 MOTHER Coronary thrombosis 19 FATHER Dementia 19 MOTHER (grandparents) Diabetes mellitus 19 MOTHER Drug abuse 19 FATHER Glaucoma 19 FATHER (grandfather) Headache disorder 19 FATHER Hypercholesterolemia 19 FATHER Hypertension 19 FATHER Myocardial infarction 19 FATHER Parkinson's disease 19 MOTHER Prostate cancer 19 MOTHER (uncle brother of mother) Psychosocial problem 19 FATHER Respiratory disorder 19 FATHER (grandfather) Seizure disorder 19 MOTHER No Family History of: AIDS Abdominal aortic aneurysm Vargas's disease Aphasia Asthma Cancer of mouth Colon cancer Completed stroke Congenital disease Congenital heart disease Cystic fibrosis Deafness or hearing loss Dysphasia Fibrocystic disease of breast Gastroenteritis Infertility Kidney disease Neoplasm Severe allergy Thyroid disease Tuberculosis Visual disorder Physical Exam Vital Signs Vital Signs - First Documented 06/17/18 21:49 Temp 97.9 Pulse 74 Resp 12 B/P (MAP) 185/107 (133) Pulse Ox 96 O2 Delivery Room Air Capillary Refill : Height, Weight, BMI Height: 4'11.00" Weight: 258lbs. 7.0oz. [id number]; 52.2 BMI Method:Stated General Appearance: WD/WN, no apparent distress, obese HEENT: PERRL/EOMI, normal ENT inspection Neck: non-tender, full range of motion Respiratory: no respiratory distress, no accessory muscle use Hips: bilateral hip non-tender, bilateral hip normal inspection, bilateral hip normal range of motion Legs: bilateral leg non-tender, bilateral leg normal inspection, bilateral leg normal range of motion Knees: bilateral knee non-tender, bilateral knee normal inspection, bilateral knee normal range of motion Ankles: bilateral ankle non-tender, bilateral ankle normal inspection, bilateral ankle normal range of motion Feet: bilateral foot non-tender, bilateral foot normal inspection, bilateral foot normal range of motion Neurologic/Psychiatric: alert, normal mood/affect, oriented x 3 Skin: normal color, warm/dry Procedures/Interventions Date of ETT Placement: Aug 30, 2017 Time of ETT Placement: 2234 Suture Size: 4-0 Progress/Results/Core Measures Results/Orders My Orders Orders - NUBIA JASON APRN Ketorolac Injection (Toradol Injection) (06/17/18 22:15) Knee, Right, 3 Views (06/17/18 22:06) Medications Given in ED Current Medications Medications Dose Ordered Sig/Garry Route Start Time Stop Time Status Last Admin Dose Admin Ketorolac Tromethamine 60 mg ONCE ONCE IM 06/17/18 22:15 06/17/18 22:16 DC 06/17/18 22:29 60 MG Vital Signs/I&O 06/17/18 06/17/18 21:49 22:36 Temp 97.9 97.9 Pulse 74 74 Resp 12 12 B/P (MAP) 185/107 (133) 185/107 (133) Pulse Ox 96 96 O2 Delivery Room Air Room Air Departure Impression Primary Impression: Internal derangement of left knee Disposition: 01 HOME, SELF-CARE Condition: Stable Departure-Patient Inst. Decision time for Depature: 22:03 Referrals: HARVEY LINDSEY DO (PCP/Family) Primary Care Physician Patient Instructions: Chronic Knee Pain Add. Discharge Instructions: 1. Follow-up with Dr. Dr. Lindsey to make an appointment for an MRI to further evaluate the cause of your left knee pain. Scripts Diclofenac Sodium (Voltaren) 100 Gm Gel..gram. 100 GM TP TID, #1 TUBE Prov: NUBIA JASON APRN 06/17/18 NUBIA JASON APRN Jun 17, 2018 22:02
[2018-06-17] MEDS ORDERED: DICL100G18 TP (22:04)
[2018-06-17] MEDS ORDERED: KETOROLAC 60 MG/2 ML VIAL IM ONE (22:15)
[2018-06-17 22:36] VITALS: BP 185/107
--- NOTE | 2018-06-18 06:37 | Diagnostic Imaging Report ---
INDICATION: Chronic right knee pain. FINDINGS: 3 views. There are no fractures. Joint spaces well preserved. Articulating surfaces are smooth. No evidence of loose bodies. There is a small osteochondroma off the medial aspect of the proximal tibia. IMPRESSION: 1. No acute abnormalities. No significant degenerative changes. 2. Small osteochondroma noted off the medial proximal tibia. Dictated by: Dictated on workstation # [id number]
== END 2018-06-17 22:37 | disposition home or self-care (01) ==
LOC: EDUNIT# 21:27 → ER 21:28
DX: M23.8X2 Other internal derangements of left knee (principal); J42 Unspecified chronic bronchitis; I10 Essential (primary) hypertension; G43.909 Migraine, unspecified, not intractable, without status migrainosus; G40.909 Epilepsy, unspecified, not intractable, without status epilepticus; Z87.442 Personal history of urinary calculi; F15.10 Other stimulant abuse, uncomplicated; F19.10 Other psychoactive substance abuse, uncomplicated; F11.10 Opioid abuse, uncomplicated; F41.9 Anxiety disorder, unspecified; F32.9 Major depressive disorder, single episode, unspecified; Z87.440 Personal history of urinary (tract) infections; Z77.22 Contact with and (suspected) exposure to environmental tobacco smoke (acute) (chronic); Z90.710 Acquired absence of both cervix and uterus; Z98.51 Tubal ligation status; Z79.01 Long term (current) use of anticoagulants; Z86.711 Personal history of pulmonary embolism
CPT/HCPCS: 73562

== ENCOUNTER 2018-08-07 06:53 | Emergency (ER) | payer MEDICAID ==
[~2018-08-07] VITALS: Ht 152.4 cm; Wt 113.4 kg
[~2018-08-07 06:53] MED LIST changes: +DICL100G18 TP
[2018-08-07] MEDS ORDERED: KETOROLAC 30 MG/ML VIAL IVP STA (07:12)
[2018-08-07] MEDS ORDERED: NS IV 1000 ML 1,000 ML IV ONE (07:12)
[2018-08-07 07:26] LABS: BILIRUBIN,URINE NEGATIVE (NEGATIVE); CLARITY,URINE CLEAR; COLOR,URINE YELLOW; GLUCOSE, URINE (UA) NEGATIVE (NEGATIVE); KETONES,URINE NEGATIVE (NEGATIVE); LEUKOCYTE ESTERASE ,URINE NEGATIVE (NEGATIVE); NITRITE,URINE NEGATIVE (NEGATIVE); PH,URINE 7 (5-9); PROTEIN,URINE NEGATIVE (NEGATIVE); UROBILINOGEN,URINE NORMAL (NORMAL)
[2018-08-07 07:36] LABS: BACTERIA,URINE NEGATIVE /HPF; SQUAMOUS EPITHELIAL CELL,UR RARE /HPF
[2018-08-07 07:39] LABS: AMPHETAMINE SCREEN, URINE NEGATIVE (NEGATIVE); BARBITURATE SCREEN URINE NEGATIVE (NEGATIVE); BENZODIAZEPINES SCREEN URINE POSITIVE (NEGATIVE); CANNABINOID SCREEN, URINE POSITIVE (NEGATIVE); COCAINE SCREEN URINE NEGATIVE (NEGATIVE); METHADONE STAT NEGATIVE (NEGATIVE); METHAMPHETAMINE SCREEN URINE S NEGATIVE (NEGATIVE); OPIATE SCREEN URINE NEGATIVE (NEGATIVE); OXYCODONE STAT POSITIVE (NEGATIVE); PROPOXYPHENE STAT NEGATIVE (NEGATIVE); TRICYCLIC ANTIDEPRESSANTS SCRE POSITIVE (NEGATIVE)
--- NOTE | 2018-08-07 07:42 | ED GI ---
General Chief Complaint: Abdominal/GI Problems Stated Complaint: ABD PAIN Nursing Triage Note: TO ED PER EMS WITH C/O R FLANK PAIN FOR 3 DAYS Sepsis Screen: No Definite Risk Source of Information: Patient Exam Limitations: No Limitations History of Present Illness Date Seen by Provider: Aug 07, 2018 Time Seen by Provider: 06:55 Initial Comments Here with report of right flank pain for the last 3 days. Worse this morning. She got up and walked to a local convenience store and called EMS for severe pain. She states that she did not want to wake up her family. Denies dysuria or diarrhea. Does have history of kidney stones. Has had her gallbladder removed. She saw her primary care provider, Dr. Lindsey, last Saturday and was started on Effexor for depression. She states that's not working but has not seen him in the interim. Has not taken anything for the pain today. Timing/Duration: 2-3 Days Severity/Quality: Moderate, Severe Location: Flank (right) Radiation: Back, Shoulder Activities at Onset: None Modifying Factors: Worsens With Movement; Improves With Resting Associated Symptoms: Back Pain; No Chest Pain, No Fever/Chills, No Nausea/ Vomiting, No Shortness of Air, No Weakness Allergies and Home Medications Allergies Coded Allergies: No Known Drug Allergies (Unverified , 04/03/18) Home Medications Albuterol Sulfate 1 Puff Puff, 2 PUFF INH TID PRN for SHORTNESS OF BREATH, ( Reported) Alprazolam 0.25 Mg Tablet, 0.25 MG PO TID PRN for ANXIETY, (Reported) Amitriptyline HCl 25 Mg Tablet, 25 MG PO HS, (Reported) Amlodipine Besylate 5 Mg Tablet, 5 MG PO DAILY, (Reported) Cyclobenzaprine HCl 10 Mg Tablet, 10 MG PO BID PRN for MUSCLE SPASMS, (Reported) Diclofenac Sodium 100 Gm Gel..gram., 100 GM TP TID Prescribed by: NUBIA JASON on 06/17/182203 Diphenhydramine HCl 25 Mg Capsule, 75 MG PO HS PRN for SLEEP, (Reported) TAKES 3 (25MG) CAPSULES Duloxetine HCl 60 Mg Capsule.dr, 60 MG PO DAILY, (Reported) TAKES ALONG WITH 30MG CAPSULE FOR A TOTAL DAILY DOSE OF 90MG Duloxetine HCl 30 Mg Capsule.dr, 30 MG PO DAILY, (Reported) TAKES ALONG WITH 60MG CAPSULE FOR A TOTAL DAILY DOSE OF 90MG Lisinopril 10 Mg Tablet, 10 MG PO DAILY, (Reported) Meloxicam 15 Mg Tablet, 15 MG PO DAILY, (Reported) Naproxen 500 Mg Tablet, 500 MG PO BID PRN for PAIN-MILD, (Reported) Quetiapine Fumarate 100 Mg Tablet, 100 MG PO HS, (Reported) Patient Home Medication List Home Medication List Reviewed: Yes Review of Systems Review of Systems Constitutional: see HPI; No chills, No fever EENTM: No Symptoms Reported Respiratory: No Symptoms Reported Cardiovascular: No Symptoms Reported Gastrointestinal: See HPI, Abdominal Pain; Denies Constipated, Denies Diarrhea , Denies Vomiting Genitourinary: Denies Frequency; Flank Pain Musculoskeletal: see HPI, back pain; No joint pain Skin: no symptoms reported Psychiatric/Neurological: See HPI, Anxiety, Depressed Endocrine: No Symptoms Reported All Other Systems Reviewed Negative Unless Noted: Yes Past Mwgxzyo-Cczajx-Engwrq Hx Past Med/Social Hx: Reviewed Nursing Past Med/Soc Hx Patient Social History Alcohol Use: Denies Use Number of Drinks Today: FF Alcohol Beverage of Choice: Vodka Recreational Drug Use: Yes Drug of Choice: METH, THC, PILLS-OPIATES/BENZO'S Smoking Status: Current Everyday Smoker Type Used: Cigarettes Former Smoker, Quit: December 24, 2016 2nd Hand Smoke Exposure: Yes Recent Foreign Travel: No Contact w/Someone Who Travel: No Recent Infectious Disease Expo: No Recent Hopitalizations: No Immunizations Up To Date Tetanus Booster (TDap): Unknown Date of Pneumonia Vaccine: Apr 26, 2015 Date of Influenza Vaccine: Jul 10, 2017 Seasonal Allergies Seasonal Allergies: No Past Medical History Surgeries: Yes (NATHALIE/CARPEL TUNNEL) Gallbladder, Hysterectomy, Orthopedic, Renal, Tubal Ligation Respiratory: Yes (HX OF P.E.--OFF ANTICOAGULANTS FOR OVER A YEAR, PER PT ON ) Pneumonia, Chronic Bronchitis, Pulmonary Embolism Currently Using CPAP: No Currently Using BIPAP: No Cardiac: Yes Hypertension Neurological: Yes (PSUEDOSEIZURES) Headaches /Migraines, Seizure Disorder 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 Disorders: No Female 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 Disorders: Denies 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 EXTENSIVE DENTAL CARIES/LEGALLY BLIND) Loss of Vision: Bilateral Cancer: No Psychosocial: Yes Pseudo Seizures, Sleep Difficulties, Anxiety, Suicide Attempts, Depression Integumentary: No Blood Disorders: No Family Medical History Reviewed Nursing Family Hx Alcoholism 19 FATHER (grandfather) Alzheimer's disease 19 MOTHER (grandmother) Arthritis 19 FATHER Cardiovascular disease 19 FATHER 19 MOTHER Cataracts 19 MOTHER Coronary thrombosis 19 FATHER Dementia 19 MOTHER (grandparents) Diabetes mellitus 19 MOTHER Drug abuse 19 FATHER Glaucoma 19 FATHER (grandfather) Headache disorder 19 FATHER Hypercholesterolemia 19 FATHER Hypertension 19 FATHER Myocardial infarction 19 FATHER Parkinson's disease 19 MOTHER Prostate cancer 19 MOTHER (uncle brother of mother) Psychosocial problem 19 FATHER Respiratory disorder 19 FATHER (grandfather) Seizure disorder 19 MOTHER No Family History of: AIDS Abdominal aortic aneurysm Vargas's disease Aphasia Asthma Cancer of mouth Colon cancer Completed stroke Congenital disease Congenital heart disease Cystic fibrosis Deafness or hearing loss Dysphasia Fibrocystic disease of breast Gastroenteritis Infertility Kidney disease Neoplasm Severe allergy Thyroid disease Tuberculosis Visual disorder Physical Exam Vital Signs Vital Signs - First Documented 08/07/18 06:54 Temp 98.4 Pulse 86 Resp 18 B/P (MAP) 128/78 (95) Capillary Refill : Less Than 3 Seconds Height/Weight/BMI Height: 5'0" Weight: 250lbs. 7.0oz. [id number]; 52.2 BMI Method:Stated General Appearance: WD/WN, no apparent distress HEENT: PERRL/EOMI, pharynx normal Neck: full range of motion, supple Respiratory: lungs clear, normal breath sounds Cardiovascular: regular rate, rhythm, no murmur Gastrointestinal: non tender, soft Extremities: non-tender, normal inspection Back: normal inspection, no CVA tenderness, no vertebral tenderness Neurologic/Psychiatric: alert, oriented x 3 Skin: normal color, warm/dry Procedures/Interventions Date of ETT Placement: Aug 30, 2017 Time of ETT Placement: 2234 Suture Size: 4-0 Progress/Results/Core Measures Results/Orders Lab Results Laboratory Tests Test 08/07/18 07:18 08/07/18 07:42 Range/Units Urine Color YELLOW Urine Clarity CLEAR Urine pH 7 5-9 Urine Specific [place] 1.005 L 1.016-1.022 Urine Protein NEGATIVE NEGATIVE Urine Glucose (UA) NEGATIVE NEGATIVE Urine Ketones NEGATIVE NEGATIVE Urine Nitrite NEGATIVE NEGATIVE Urine Bilirubin NEGATIVE NEGATIVE Urine Urobilinogen NORMAL NORMAL MG/DL Urine Leukocyte Esterase NEGATIVE NEGATIVE Urine RBC (Auto) NEGATIVE NEGATIVE Urine RBC NONE /HPF Urine WBC NONE /HPF Urine Squamous Epithelial Cells RARE /HPF Urine Crystals NONE /LPF Urine Bacteria NEGATIVE /HPF Urine Casts NONE /LPF Urine Mucus NEGATIVE /LPF Urine Culture Indicated NO Urine Opiates Screen NEGATIVE NEGATIVE Urine Oxycodone Screen POSITIVE H NEGATIVE Urine Methadone Screen NEGATIVE NEGATIVE Urine Propoxyphene Screen NEGATIVE NEGATIVE Urine Barbiturates Screen NEGATIVE NEGATIVE Ur Tricyclic Antidepressants Screen POSITIVE H NEGATIVE Urine Phencyclidine Screen NEGATIVE NEGATIVE Urine Amphetamines Screen NEGATIVE NEGATIVE Urine Methamphetamines Screen NEGATIVE NEGATIVE Urine Benzodiazepines Screen POSITIVE H NEGATIVE Urine Cocaine Screen NEGATIVE NEGATIVE Urine Cannabinoids Screen POSITIVE H NEGATIVE White Blood Count 8.0 4.3-11.0 10^3/uL Red Blood Count 4.50 4.35-5.85 10^6/uL Hemoglobin 13.5 11.5-16.0 G/DL Hematocrit 41 35-52 % Mean Corpuscular Volume 92 80-99 FL Mean Corpuscular Hemoglobin 30 25-34 PG Mean Corpuscular Hemoglobin Concent 33 32-36 G/DL Red Cell Distribution Width 14.1 10.0-14.5 % Platelet Count 227 130-400 10^3/uL Mean Platelet Volume 10.4 7.4-10.4 FL Neutrophils (%) (Auto) 65 42-75 % Lymphocytes (%) (Auto) 29 12-44 % Monocytes (%) (Auto) 5 0-12 % Eosinophils (%) (Auto) 2 0-10 % Basophils (%) (Auto) 0 0-10 % Neutrophils # (Auto) 5.2 1.8-7.8 X 10^3 Lymphocytes # (Auto) 2.3 1.0-4.0 X 10^3 Monocytes # (Auto) 0.4 0.0-1.0 X 10^3 Eosinophils # (Auto) 0.2 0.0-0.3 10^3/uL Basophils # (Auto) 0.0 0.0-0.1 10^3/uL Sodium Level 139 135-145 MMOL/L Potassium Level 4.5 3.6-5.0 MMOL/L Chloride Level 105 98-107 MMOL/L Carbon Dioxide Level 24 21-32 MMOL/L Anion Gap 10 5-14 MMOL/L Blood Urea Nitrogen 11 7-18 MG/DL Creatinine 0.68 0.60-1.30 MG/DL Estimat Glomerular Filtration Rate > 60 BUN/Creatinine Ratio 16 Glucose Level 90 70-105 MG/DL Calcium Level 9.6 8.5-10.1 MG/DL Corrected Calcium 9.8 8.5-10.1 MG/DL Total Bilirubin 0.2 0.1-1.0 MG/DL Aspartate Amino Transf (AST/SGOT) 20 5-34 U/L Alanine Aminotransferase (ALT/SGPT) 52 0-55 U/L Alkaline Phosphatase 87 40-136 U/L Total Protein 6.7 6.4-8.2 GM/DL Albumin 3.7 3.2-4.5 GM/DL My Orders Orders - DOMINGO NOBLES MD Cbc With Automated Diff (08/07/18 07:12) Comprehensive Metabolic Panel (08/07/18 07:12) Drug Screen Stat (Urine) (08/07/18 07:12) Ua Culture If Indicated (08/07/18 07:12) Saline Lock/Iv-Start (08/07/18 07:12) Ns Iv 1000 Ml (Sodium Chloride 0.9%) (08/07/18 07:12) Ketorolac Injection (Toradol Injection) (08/07/18 07:12) Medications Given in ED Current Medications Medications Dose Ordered Sig/Garry Route Start Time Stop Time Status Last Admin Dose Admin Sodium Chloride 1,000 ml @ 0 mls/hr Q0M ONCE IV 08/07/18 07:12 08/07/18 07:14 DC 08/07/18 07:25 1,000 MLS/HR Vital Signs/I&O 08/07/18 06:54 Temp 98.4 Pulse 86 Resp 18 B/P (MAP) 128/78 (95) Blood Pressure Mean: 95 Progress Progress Note : Progress Note Seen and evaluated. IV, labs and UA ordered. Normal saline 1 L bolus. Toradol 30 mg IV. Monitor patient. 0820: Patient would like to go home now. She states she is not really feeling much better but she has a place to be at 9 a.m. and wants to leave. I did talk with Dr. Lindsey and he will see her this afternoon. I did discuss with her about continuing Effexor as it can take several weeks to be effective. She verbalized understanding. Discharged home with return precautions. Patient verbalize understanding instructions and agreement with plan. Departure Impression Primary Impression: Right flank pain Disposition: 01 HOME, SELF-CARE Condition: Stable Departure-Patient Inst. Decision time for Depature: 08:24 Referrals: HARVEY LINDSEY DO (PCP/Family) Primary Care Physician Patient Instructions: Acute Abdomen (Belly Pain), Adult (DC) Add. Discharge Instructions: All discharge instructions reviewed with patient and/or family. Voiced understanding. Follow with Dr. Lindsey this afternoon. Call his office this morning for appointment time. Return for worse pain, weakness, breathing problems, vomiting or other concerns as needed. Tinea other previously prescribed home medications as prescribed. Drink plenty of fluids. Copy Copies To 1: HARVEY LINDSEY TIMOTHY D MD Aug 07, 2018 07:41
[2018-08-07 07:49] LABS: BASOPHILS % (AUTO) 0 % (0-10); EOSINOPHILS # (AUTO) 0.2 10^3/uL (0.0-0.3); EOSINOPHILS % (AUTO) 2 % (0-10); HEMATOCRIT 41 % (35-52); HEMOGLOBIN 13.5 G/DL (11.5-16.0); LYMPHOCYTES # (AUTO) 2.3 X 10^3 (1.0-4.0); LYMPHOCYTES % (AUTO) 29 % (12-44); MEAN CORPUSCULAR HEMOGLOBIN 30 PG (25-34); MEAN CORPUSCULAR HGB CONC 33 G/DL (32-36); MEAN CORPUSCULAR VOLUME 92 FL (80-99); MEAN PLATELET VOLUME 10.4 FL (7.4-10.4); MONOCYTES # (AUTO) 0.4 X 10^3 (0.0-1.0); MONOCYTES % (AUTO) 5 % (0-12); NEUTROPHILS # (AUTO) 5.2 X 10^3 (1.8-7.8); NEUTROPHILS % (AUTO) 65 % (42-75); PLATELET COUNT 227 10^3/uL (130-400); RED CELL DISTRIBUTION WIDTH 14.1 % (10.0-14.5)
[2018-08-07 08:06] LABS: ALANINE AMINOTRANSFERASE 52 U/L (0-55); ALBUMIN 3.7 GM/DL (3.2-4.5); ALKALINE PHOSPHATASE 87 U/L (40-136); BILIRUBIN,TOTAL 0.2 MG/DL (0.1-1.0); BUN/CREATININE RATIO 16; CALCIUM 9.6 MG/DL (8.5-10.1); CARBON DIOXIDE 24 MMOL/L (21-32); CHLORIDE 105 MMOL/L (98-107); CREATININE SERUM 0.68 MG/DL (0.60-1.30); GFR ESTIMATED > 60; GLUCOSE 90 MG/DL (70-105); POTASSIUM 4.5 MMOL/L (3.6-5.0); SODIUM 139 MMOL/L (135-145); TOTAL PROTEIN 6.7 GM/DL (6.4-8.2)
[2018-08-07 08:32] VITALS: BP 128/78
== END 2018-08-07 08:32 | disposition home or self-care (01) ==
LOC: ER 06:53 → EDUNIT# 06:56 → ER 08:32
DX: R10.9 Unspecified abdominal pain (principal); I10 Essential (primary) hypertension; G43.909 Migraine, unspecified, not intractable, without status migrainosus; G40.909 Epilepsy, unspecified, not intractable, without status epilepticus; F15.10 Other stimulant abuse, uncomplicated; E66.01 Morbid (severe) obesity due to excess calories; F41.9 Anxiety disorder, unspecified; F32.9 Major depressive disorder, single episode, unspecified; F12.10 Cannabis abuse, uncomplicated; Z87.891 Personal history of nicotine dependence; Z87.442 Personal history of urinary calculi; Z91.5 Personal history of self-harm; Z79.51 Long term (current) use of inhaled steroids; Z98.51 Tubal ligation status; Z87.440 Personal history of urinary (tract) infections; Z82.49 Family history of ischemic heart disease and other diseases of the circulatory system; Z80.42 Family history of malignant neoplasm of prostate; Z68.43 Body mass index [BMI] 50.0-59.9, adult; Z87.448 Personal history of other diseases of urinary system; Z90.710 Acquired absence of both cervix and uterus; Z86.711 Personal history of pulmonary embolism; Z87.01 Personal history of pneumonia (recurrent); Z87.09 Personal history of other diseases of the respiratory system
CPT/HCPCS: 36415; 80053; 80306; 81000; 85025; 96361; 96374

== ENCOUNTER 2018-12-13 21:13 | Emergency (ER) | payer MEDICAID ==
[~2018-12-13] VITALS: Ht 152.4 cm; Wt 112.0 kg
[~2018-12-13 21:13] MED LIST changes: -AMLO5TAB7 PO; +AMLO5TAB9 PO; -GABA600T2 PO; +GABA800T10 PO
[2018-12-13] MEDS ORDERED: KETOROLAC 60 MG/2 ML VIAL IM STA (21:31)
--- NOTE | 2018-12-13 21:41 | ED Back Pain ---
General Chief Complaint: Back Problems Nursing Triage Note: PATIENT AMBULATORY TO ER ROOM 10 WITH COMPLAINT OF PAIN TO MIDDLE OF BACK. PAIN STARTED THIS MORNING AND GETS WORSE WITH MOVEMENT. PATIENT DENIES ANY RECENT INJURIES AND STATES SHE HAS A HISTORY OF CHRONIC BACK PAIN DUE TO SCOLIOSIS. PATIENT IS CONSCIOUS, ALERT AND ORIENTED X 4. Nursing Sepsis Screen: No Definite Risk Source of Information: Patient Exam Limitations: No Limitations History of Present Illness Date Seen by Provider: Dec 13, 2018 Time Seen by Provider: 21:24 Initial Comments Here with report of right-sided back pain in the middle of her back at the lower rib margin. States it hurts worse with movement and is better with rest. Does have history of chronic back pain. Onset today. She has not taken anything for it. 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 Denies nausea or vomiting. Denies fever or chills. States that she is very worried about blood clots and she had one of those in the past. This was in 2014. She is not on blood thinners currently. Does smoke but has only had 2 cigarettes today because of cough. Timing/Duration: 12 Hours Severity: Mild, Moderate Pain/Injury Location: Back Radiation: Other (none) Method of Injury: Unknown Modifying Factors: Worse With Movement; Improves With Rest Associated Symptoms: No muscle spasms, No fever, No weakness, No sensory/motor loss, No lower back pain, No loss of bladder control, No loss of bowel control Allergies and Home Medications Allergies Coded Allergies: No Known Drug Allergies (Unverified , 04/03/18) Home Medications Albuterol Sulfate 1 Puff Puff, 2 PUFF INH TID PRN for SHORTNESS OF BREATH, ( Reported) Alprazolam 0.25 Mg Tablet, 0.25 MG PO TID PRN for ANXIETY, (Reported) Amitriptyline HCl 25 Mg Tablet, 25 MG PO HS, (Reported) Amlodipine Besylate 5 Mg Tablet, 5 MG PO DAILY, (Reported) Cyclobenzaprine HCl 10 Mg Tablet, 10 MG PO BID PRN for MUSCLE SPASMS, (Reported) Diclofenac Sodium 100 Gm Gel..gram., 100 GM TP TID Prescribed by: NUBIA JASON on 06/17/182203 Diphenhydramine HCl 25 Mg Capsule, 75 MG PO HS PRN for SLEEP, (Reported) TAKES 3 (25MG) CAPSULES Duloxetine HCl 60 Mg Capsule.dr, 60 MG PO DAILY, (Reported) TAKES ALONG WITH 30MG CAPSULE FOR A TOTAL DAILY DOSE OF 90MG Duloxetine HCl 30 Mg Capsule.dr, 30 MG PO DAILY, (Reported) TAKES ALONG WITH 60MG CAPSULE FOR A TOTAL DAILY DOSE OF 90MG Lisinopril 10 Mg Tablet, 10 MG PO DAILY, (Reported) Meloxicam 15 Mg Tablet, 15 MG PO DAILY, (Reported) Naproxen 500 Mg Tablet, 500 MG PO BID PRN for PAIN-MILD, (Reported) Quetiapine Fumarate 100 Mg Tablet, 100 MG PO HS, (Reported) Patient Home Medication List Home Medication List Reviewed: Yes Review of Systems Constitutional: see HPI; No chills, No fever EENTM: no symptoms reported Respiratory: see HPI; No short of breath Cardiovascular: No chest pain, No palpitations Gastrointestinal: No abdominal pain, No nausea, No vomiting Genitourinary: no symptoms reported Musculoskeletal: back pain, muscle pain Skin: no symptoms reported Past Fxadyxz-Aejmrf-Ohnhmk Hx Past Med/Social Hx: Reviewed Nursing Past Med/Soc Hx Patient Social History Alcohol Use: Past History Alcohol Beverage of Choice: Vodka Recreational Drug Use: Yes Drug of Choice: MARIJUANA Smoking Status: Current Everyday Smoker Type Used: Cigarettes 2nd Hand Smoke Exposure: Yes Recent Foreign Travel: No Contact w/Someone Who Travel: No Recent Infectious Disease Expo: No Recent Hopitalizations: No Immunizations Up To Date Tetanus Booster (TDap): Unknown Date of Pneumonia Vaccine: Apr 26, 2015 Date of Influenza Vaccine: Jul 10, 2017 Seasonal Allergies Seasonal Allergies: No Past Medical History Surgeries: Yes (NATHALIE/CARPEL TUNNEL, KIDNEY STONE-STENT/LITHOTRIPSY) Gallbladder, Hysterectomy, Orthopedic, Renal, Tubal Ligation Respiratory: Yes (HX OF P.E.--OFF ANTICOAGULANTS FOR OVER A YEAR, PER PT ON ) Pneumonia, Chronic Bronchitis, Pulmonary Embolism Currently Using CPAP: No Currently Using BIPAP: No Cardiac: Yes Hypertension Neurological: Yes (PSUEDOSEIZURES) Headaches /Migraines, Seizure Disorder 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 Disorders: No Female 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 EXTENSIVE DENTAL CARIES/LEGALLY BLIND) Loss of Vision: Bilateral Cancer: No Psychosocial: Yes Pseudo Seizures, Sleep Difficulties, Anxiety, Suicide Attempts, Depression Integumentary: No Blood Disorders: No Family Medical History Reviewed Nursing Family Hx Alcoholism 19 FATHER (grandfather) Alzheimer's disease 19 MOTHER (grandmother) Arthritis 19 FATHER Cardiovascular disease 19 FATHER 19 MOTHER Cataracts 19 MOTHER Coronary thrombosis 19 FATHER Dementia 19 MOTHER (grandparents) Diabetes mellitus 19 MOTHER Drug abuse 19 FATHER Glaucoma 19 FATHER (grandfather) Headache disorder 19 FATHER Hypercholesterolemia 19 FATHER Hypertension 19 FATHER Myocardial infarction 19 FATHER Parkinson's disease 19 MOTHER Prostate cancer 19 MOTHER (uncle brother of mother) Psychosocial problem 19 FATHER Respiratory disorder 19 FATHER (grandfather) Seizure disorder 19 MOTHER No Family History of: AIDS Abdominal aortic aneurysm Vargas's disease Aphasia Asthma Cancer of mouth Colon cancer Completed stroke Congenital disease Congenital heart disease Cystic fibrosis Deafness or hearing loss Dysphasia Fibrocystic disease of breast Gastroenteritis Infertility Kidney disease Neoplasm Severe allergy Thyroid disease Tuberculosis Visual disorder Physical Exam Vital Signs Vital Signs - First Documented 12/13/18 21:20 Temp 98.6 Pulse 84 Resp 18 B/P (MAP) 126/80 (95) Pulse Ox 98 O2 Delivery Room Air Capillary Refill : Less Than 3 Seconds Height, Weight, BMI Height: 5'0" Weight: 247lbs. 7.0oz. 112.763925ad; 52.2 BMI Method:Actual General Appearance: No Apparent Distress, WD/WN HEENT: PERRL/EOMI, Pharynx Normal Neck: Non Tender, Supple Cardiovascular: Regular Rate, Rhythm, No Murmur Respiratory: No Respiratory Distress, Wheezing (posterior upper and middle aspect bilaterally) Gastrointestinal: Non Tender, Soft Back: Normal Inspection, No CVA Tenderness, No Vertebral Tenderness, Other ( tender along the right low rib margin) Extremity: Normal Range of Motion, Non Tender Neurologic/Psychiatric: Alert, Oriented x3 Skin: Normal Color, Warm/Dry Procedures/Interventions Date of ETT Placement: Aug 30, 2017 Time of ETT Placement: 2234 Suture Size: 4-0 Progress/Results/Core Measures Results/Orders Lab Results Laboratory Tests Test 12/13/18 21:40 Range/Units White Blood Count 11.9 H 4.3-11.0 10^3/uL Red Blood Count 4.81 4.35-5.85 10^6/uL Hemoglobin 14.6 11.5-16.0 G/DL Hematocrit 44 35-52 % Mean Corpuscular Volume 92 80-99 FL Mean Corpuscular Hemoglobin 30 25-34 PG Mean Corpuscular Hemoglobin Concent 33 32-36 G/DL Red Cell Distribution Width 13.5 10.0-14.5 % Platelet Count 263 130-400 10^3/uL Mean Platelet Volume 10.8 H 7.4-10.4 FL Neutrophils (%) (Auto) 58 42-75 % Lymphocytes (%) (Auto) 34 12-44 % Monocytes (%) (Auto) 6 0-12 % Eosinophils (%) (Auto) 2 0-10 % Basophils (%) (Auto) 0 0-10 % Neutrophils # (Auto) 6.9 1.8-7.8 X 10^3 Lymphocytes # (Auto) 4.0 1.0-4.0 X 10^3 Monocytes # (Auto) 0.7 0.0-1.0 X 10^3 Eosinophils # (Auto) 0.2 0.0-0.3 10^3/uL Basophils # (Auto) 0.0 0.0-0.1 10^3/uL D-Dimer < 0.20 0.00-0.49 UG/ML Sodium Level 139 135-145 MMOL/L Potassium Level 3.8 3.6-5.0 MMOL/L Chloride Level 105 98-107 MMOL/L Carbon Dioxide Level 21 21-32 MMOL/L Anion Gap 13 5-14 MMOL/L Blood Urea Nitrogen 11 7-18 MG/DL Creatinine 0.75 0.60-1.30 MG/DL Estimat Glomerular Filtration Rate > 60 BUN/Creatinine Ratio 15 Glucose Level 97 70-105 MG/DL Calcium Level 9.8 8.5-10.1 MG/DL Corrected Calcium 9.9 8.5-10.1 MG/DL Total Bilirubin 0.2 0.1-1.0 MG/DL Aspartate Amino Transf (AST/SGOT) 18 5-34 U/L Alanine Aminotransferase (ALT/SGPT) 19 0-55 U/L Alkaline Phosphatase 70 40-136 U/L Total Protein 7.1 6.4-8.2 GM/DL Albumin 3.9 3.2-4.5 GM/DL My Orders Orders - DOMINGO NOBLES MD Cbc With Automated Diff (12/13/18 21:31) Comprehensive Metabolic Panel (12/13/18 21:31) Fibrin Degradation Products (12/13/18 21:31) Ketorolac Injection (Toradol Injection) (12/13/18 21:31) Albuterol/Ipra Inhalation Soln (Duoneb I (12/13/18 21:45) Chest Pa/Lat (2 View) (12/13/18 21:31) Svn Small Volume Nebulizer (12/13/18 21:31) Rx-Cyclobenzaprine Tablet (Rx-Flexeril T (12/13/18 22:14) Prednisone Tablet (Deltasone Tablet) (12/13/18 22:15) Medications Given in ED Current Medications Medications Dose Ordered Sig/Garry Route Start Time Stop Time Status Last Admin Dose Admin Albuterol/ Ipratropium 3 ml ONCE ONCE INH 12/13/18 21:45 12/13/18 21:46 DC 12/13/18 21:51 3 ML Vital Signs/I&O 12/13/18 12/13/18 21:20 21:51 Temp 98.6 Pulse 84 Resp 18 B/P (MAP) 126/80 (95) Pulse Ox 98 94 O2 Delivery Room Air Room Air Blood Pressure Mean: 95 Progress Progress Note : Progress Note Seen and evaluated. Labs, DuoNeb and chest x-ray ordered. Monitor patient. 2015 : Chest x-ray does not show any acute findings. Patient is better after breathing treatment. She has albuterol nebulizer at home. D-dimer is negative so no indication of blood clots. We will give prednisone 40 mg by mouth now. Discharged home with go pack of Flexeril. Discharged home with return precautions. Patient verbalize understanding instructions and agreement with plan. Departure Impression Primary Impression: Upper respiratory infection, viral Additional Impression: Back pain Qualified Codes: M54.6 - Pain in thoracic spine Disposition: 01 HOME, SELF-CARE Condition: Improved Departure-Patient Inst. Decision time for Depature: 22:18 Referrals: HARVEY LINDSEY DO (PCP/Family) Primary Care Physician Patient Instructions: Upper Back Pain, Viral Upper Respiratory Infection, Adult (DC) Add. Discharge Instructions: All discharge instructions reviewed with patient and/or family. Voiced understanding. You may take ibuprofen 800 mg every 8 hours as needed for pain. You may also take Tylenol/acetaminophen 1000 mg every 8 hours as needed for pain. Drink plenty of fluids. Use your albuterol inhaler as previously prescribed. Follow- up with your Dr. in a few days for recheck. Return for worse pain, fever, vomiting, weakness, breathing problems or other concerns as needed. Scripts Prednisone (Prednisone) 20 Mg Tab 40 MG PO DAILY, #8 TAB 0 Refills Prov: DOMINGO NOBLES MD 12/13/18 DOMINGO NOBLES MD Dec 13, 2018 21:41
[2018-12-13] MEDS ORDERED: RT-ALBUTEROL/IPRATROPIUM 3 ML (DUONEB) VIAL INH ONE (21:45)
[2018-12-13 21:49] LABS: BASOPHILS % (AUTO) 0 % (0-10); EOSINOPHILS # (AUTO) 0.2 10^3/uL (0.0-0.3); EOSINOPHILS % (AUTO) 2 % (0-10); HEMATOCRIT 44 % (35-52); HEMOGLOBIN 14.6 G/DL (11.5-16.0); LYMPHOCYTES % (AUTO) 34 % (12-44); MEAN CORPUSCULAR HEMOGLOBIN 30 PG (25-34); MEAN CORPUSCULAR HGB CONC 33 G/DL (32-36); MEAN CORPUSCULAR VOLUME 92 FL (80-99); MEAN PLATELET VOLUME 10.8 FL (7.4-10.4); MONOCYTES # (AUTO) 0.7 X 10^3 (0.0-1.0); MONOCYTES % (AUTO) 6 % (0-12); NEUTROPHILS # (AUTO) 6.9 X 10^3 (1.8-7.8); NEUTROPHILS % (AUTO) 58 % (42-75); PLATELET COUNT 263 10^3/uL (130-400); RED CELL DISTRIBUTION WIDTH 13.5 % (10.0-14.5); WHITE BLOOD COUNT 11.9 10^3/uL (4.3-11.0)
[2018-12-13 22:09] LABS: ALANINE AMINOTRANSFERASE 19 U/L (0-55); ALBUMIN 3.9 GM/DL (3.2-4.5); ALKALINE PHOSPHATASE 70 U/L (40-136); BILIRUBIN,TOTAL 0.2 MG/DL (0.1-1.0); BUN/CREATININE RATIO 15; CALCIUM 9.8 MG/DL (8.5-10.1); CARBON DIOXIDE 21 MMOL/L (21-32); CHLORIDE 105 MMOL/L (98-107); CREATININE SERUM 0.75 MG/DL (0.60-1.30); GFR ESTIMATED > 60; GLUCOSE 97 MG/DL (70-105); POTASSIUM 3.8 MMOL/L (3.6-5.0); SODIUM 139 MMOL/L (135-145); TOTAL PROTEIN 7.1 GM/DL (6.4-8.2)
[2018-12-13] MEDS ORDERED: RX-CYCLOBENZAPRINE 10 MG (FLEXERIL) TAB PPK#3 PO STA (22:14)
[2018-12-13] MEDS ORDERED: predniSONE 20 MG TAB PO ONE (22:15)
[2018-12-13] MEDS ORDERED: PRD20T PO (22:22)
--- NOTE | 2018-12-13 22:38 | NUR ---
PATIENT SENT HOME WITH FLEXERIL 3 PACK TO TAKE 1 TABLET EVERY 8 HOURS NEEDED FOR BACK PAIN.
[2018-12-13 22:41] VITALS: BP 115/77
--- NOTE | 2018-12-14 06:46 | Diagnostic Imaging Report ---
INDICATION: Back pain. PA and lateral views of the chest were obtained. Comparison is made with prior examination from 04/03/18. FINDINGS: The heart size, mediastinal configuration, and pulmonary vascularity are within normal limits. There is no pleural effusion, pneumothorax, or pneumonia. The osseous structures are unremarkable. IMPRESSION: No acute cardiopulmonary abnormality. Dictated by: Dictated on workstation # [id number]
== END 2018-12-13 22:43 | disposition home or self-care (01) ==
LOC: EDUNIT# 21:13 → ER 21:15
DX: M54.9 Dorsalgia, unspecified (principal); J06.9 Acute upper respiratory infection, unspecified; I10 Essential (primary) hypertension; G43.909 Migraine, unspecified, not intractable, without status migrainosus; G40.909 Epilepsy, unspecified, not intractable, without status epilepticus; M79.7 Fibromyalgia; M41.9 Scoliosis, unspecified; E66.01 Morbid (severe) obesity due to excess calories; F41.9 Anxiety disorder, unspecified; F32.9 Major depressive disorder, single episode, unspecified; F12.10 Cannabis abuse, uncomplicated; F17.210 Nicotine dependence, cigarettes, uncomplicated; Z90.49 Acquired absence of other specified parts of digestive tract; Z82.49 Family history of ischemic heart disease and other diseases of the circulatory system; Z98.890 Other specified postprocedural states; Z87.442 Personal history of urinary calculi; Z91.5 Personal history of self-harm; Z96.0 Presence of urogenital implants; Z90.710 Acquired absence of both cervix and uterus; Z98.51 Tubal ligation status; Z86.711 Personal history of pulmonary embolism; Z87.09 Personal history of other diseases of the respiratory system
CPT/HCPCS: 36415; 71046; 80053; 85025; 85379; 94640; 96372

== ENCOUNTER 2019-01-22 21:40 | Observation (INO) | payer MEDICAID ==
[~2019-01-22] VITALS: Ht 152.4 cm; Wt 117.1 kg
--- NOTE | 2019-01-22 21:51 | NUR ---
pt here by self alert gcs 15. positive smell of alcohol. pt relates " depressed and anxiety" denies suicidal. pt appears intoxicated. pt denies abd pain and n/v/d. denies dyspnea and no acute sighns of dyspnea noted. pt diaphoretic. lungs cta bilaterally. abd w/o pain with palpation. bp machine is 144/80 ausc hr 100 reg ausc resp 24 normal p ox r/a is 94.pt was slightly ataxic from w/e to er room. pt cooperative at this time. done susan pt at 2546.
[2019-01-22] MEDS ORDERED: NS IV 1000 ML 1,000 ML IV ONE (21:55)
--- NOTE | 2019-01-22 21:57 | NUR ---
blood sugar by glucometer by tech is 118
--- NOTE | 2019-01-22 21:59 | NUR ---
tele applied shows sr 80
--- NOTE | 2019-01-22 22:00 | NUR ---
ekg by tech
--- NOTE | 2019-01-22 22:11 | NUR ---
tech placed arenas w/o problems.
--- NOTE | 2019-01-22 22:15 | NUR ---
iv by me on 3rd attempt barely in could not get labs. 22 g left wrist.
[2019-01-22 22:21] LABS: BILIRUBIN,URINE NEGATIVE (NEGATIVE); CLARITY,URINE CLEAR; COLOR,URINE YELLOW; GLUCOSE, URINE (UA) NEGATIVE (NEGATIVE); KETONES,URINE NEGATIVE (NEGATIVE); LEUKOCYTE ESTERASE ,URINE NEGATIVE (NEGATIVE); NITRITE,URINE NEGATIVE (NEGATIVE); PH,URINE 6 (5-9); PROTEIN,URINE NEGATIVE (NEGATIVE); UROBILINOGEN,URINE NORMAL (NORMAL)
--- NOTE | 2019-01-22 22:21 | ED General ---
General Stated Complaint: CONFUSION,ETOH Source of Information: Patient (VERY POOR LIMITED HISTORIAN--PT IS INTOXICATED / UNDER THE INFLUENCE OF SOME SUBSTANCE/S), Old Records (ALL PMH IS FROM OLD RECORDS) Exam Limitations: Intoxication History of Present Illness Date Seen by Provider: January 22, 2019 Time Seen by Provider: 21:49 Initial Comments PT ARRIVES VIA POV FROM HOME--PERSON WHO BROUGHT HER DID NOT ACCOMPANY HER INTO ER, AND PT DOES NOT KNOW WHO BROUGHT HER TO ER. PT LIVES WITH HER MOTHER ( [place] ) , BUT MOTHER HAS BEEN HOSPITALIZED ALL WEEK, REPORTEDLY WITH CARDIAC ISSUES. PRESENTING COMPLAINT AT WINDOW WAS "CONFUSION" "ALCOHOL" PT OBVIOUSLY UNDER THE INFLUENCE OF ALCOHOL AND POSSIBLY UNDER SOME SUBSTANCE/S, AND IS UNABLE TO GIVE ANY RELIABLE INFORMATION AT THIS TIME PT STATES "I'M DEPRESSED AND MY KIDS ARE WORRIED ABOUT ME" "I JUST WANT TO BE NORMAL" PT DENIES ANY SUICIDAL THOUGHTS, OR ATTEMPT PT IS UNABLE TO COMPLETE THOUGHTS/SENTENCES PT CANNOT GIVE ANY SPECIFIC COMPLAINTS PT IS VERY WELL KNOWN TO ER PT HAS A VERY EXTENSIVE HISTORY OF POLYSUBSTANCE ABUSE, INCLUDING MULTIPLE DRUG OVERDOSES--BOTH INTENTIONAL AND ACCIDENTAL--AND FOR ALCOHOL ABUSE/INTOXICATION. PT HAS BEEN KNOWN TO GIVE FALSE URINE SAMPLES, AND HAS ALSO BEEN FOUND TO HAVE A SPECIMEN CONTAINER OF URINE IN HER VAGINA, WELL DRUGS IN HER VAGINA, AND A TUBE OF SUPERGLUE IN HER VAGINA IN THE PAST PT HAS BEEN INTUBATED IN THE PAST FOR ALL OF THE ABOVE, AND DID CODE 08/30/17 AND WAS HAVING SEIZURES AT THAT TIME, AND WAS INTUBATED AT THAT TIME ALSO PT WITH LONG HISTORY OF EXTREME NON-COMPLIANCE IN ALL ASPECTS OF CARE PCP: DR. LINDSEY Allergies and Home Medications Allergies Coded Allergies: No Known Drug Allergies (Unverified , 04/03/18) Home Medications Albuterol Sulfate 1 Puff Puff, 2 PUFF INH TID PRN for SHORTNESS OF BREATH, (Reported) Alprazolam 0.25 Mg Tablet, 0.25 MG PO TID PRN for ANXIETY, (Reported) Amitriptyline HCl 25 Mg Tablet, 25 MG PO HS, (Reported) Amlodipine Besylate 5 Mg Tablet, 5 MG PO DAILY, (Reported) Cyclobenzaprine HCl 10 Mg Tablet, 10 MG PO BID PRN for MUSCLE SPASMS, (Reported) Diclofenac Sodium 100 Gm Gel..gram., 100 GM TP TID Prescribed by: NUBIA JASON on 06/17/182203 Diphenhydramine HCl 25 Mg Capsule, 75 MG PO HS PRN for SLEEP, (Reported) TAKES 3 (25MG) CAPSULES Duloxetine HCl 60 Mg Capsule.dr, 60 MG PO DAILY, (Reported) TAKES ALONG WITH 30MG CAPSULE FOR A TOTAL DAILY DOSE OF 90MG Duloxetine HCl 30 Mg Capsule.dr, 30 MG PO DAILY, (Reported) TAKES ALONG WITH 60MG CAPSULE FOR A TOTAL DAILY DOSE OF 90MG Lisinopril 10 Mg Tablet, 10 MG PO DAILY, (Reported) Meloxicam 15 Mg Tablet, 15 MG PO DAILY, (Reported) Naproxen 500 Mg Tablet, 500 MG PO BID PRN for PAIN-MILD, (Reported) Prednisone 20 Mg Tab, 40 MG PO DAILY Prescribed by: DOMINGO NOBLES on 12/13/182221 Quetiapine Fumarate 100 Mg Tablet, 100 MG PO HS, (Reported) Patient Home Medication List Home Medication List Reviewed: Yes Review of Systems Review of Systems Constitutional: other (UNABLE TO OBTAIN RELIABLE INFORMATION) Genitourinary: other (PT HAS BEEN INCONTINENT OF URINE--PT IS UNAWARE) Past Fsuppcp-Tbnlxt-Zwijeg Hx Patient Social History Alcohol Use: Regular Use (REGULAR, HEAVY USE--MULTITUDE OF VISITS FOR ALCOHOL INTOXICATION) Alcohol Beverage of Choice: Vodka Recreational Drug Use: Yes (EXTENSIVE POLYSUBSTANCE ABUSE WITH MULTIPLE OVERDOSES--BOTH INTENTIONAL SUICIDE GESTURE AND "ACCIDENTAL" DUE TO ABUSE, AND MANY WITH ETOH INTOXICATION. KNOWN TO GET MORPHINE, CODEINE/HYDROCODONE/OXYCODONE AND BENZODIAZEPINES OFF THE STREET, IN ADDITION TO METH AND THC; ) Drug of Choice: MARIJUANA, METH, THC, PILLS--POLYSUBSTANCES-OPIATES/BENZO'S ESPECIALLY Smoking Status: Current Everyday Smoker (1 PPD) Type Used: Cigarettes 2nd Hand Smoke Exposure: Yes Recent Foreign Travel: No Contact w/Someone Who Travel: No Recent Hopitalizations: No Immunizations Up To Date Tetanus Booster (TDap): Unknown Date of Pneumonia Vaccine: Apr 26, 2015 Date of Influenza Vaccine: Jul 10, 2017 Seasonal Allergies Seasonal Allergies: No Past Medical History Surgeries: Yes (NATHALIE; TRANSPOSITION OF MEDIAN NERVE AND CARPEL TUNNEL SURGERY X 3; URETERAL STENT/LITHOTRIPSY; HYST/OVARIES INTACT) Gallbladder, Hysterectomy, Orthopedic, Renal, Tubal Ligation Respiratory: Yes (HX OF P.E.--OFF ANTICOAGULANTS FOR OVER A YEAR, PER PT ON 05/23/17;INTUBATED IN PAST DUE TO OVERDOSES) Pneumonia, Chronic Bronchitis, Pulmonary Embolism Currently Using CPAP: No Currently Using BIPAP: No Cardiac: Yes Hypertension Neurological: Yes (PSUEDOSEIZURES; POSSIBLE BENZODIAZPINE/ALCOHOL/OPIATE WITHDRAWL SEIZURES 08/30/2017) Headaches /Migraines, Seizure Disorder 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 Disorders: No Female 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 Disorders: Denies 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 EXTENSIVE DENTAL CARIES/LEGALLY BLIND) Loss of Vision: Bilateral Cancer: No Psychosocial: Yes (POLYSUBSTANCE ABUSE, OVERDOSES ) Pseudo Seizures, Sleep Difficulties, Anxiety, Suicide Attempts, Depression Integumentary: No Blood Disorders: No Family Medical History Alcoholism 19 FATHER (grandfather) Alzheimer's disease 19 MOTHER (grandmother) Arthritis 19 FATHER Cardiovascular disease 19 FATHER 19 MOTHER Cataracts 19 MOTHER Coronary thrombosis 19 FATHER Dementia 19 MOTHER (grandparents) Diabetes mellitus 19 MOTHER Drug abuse 19 FATHER Glaucoma 19 FATHER (grandfather) Headache disorder 19 FATHER Hypercholesterolemia 19 FATHER Hypertension 19 FATHER Myocardial infarction 19 FATHER Parkinson's disease 19 MOTHER Prostate cancer 19 MOTHER (uncle brother of mother) Psychosocial problem 19 FATHER Respiratory disorder 19 FATHER (grandfather) Seizure disorder 19 MOTHER No Family History of: AIDS Abdominal aortic aneurysm Lenoir's disease Aphasia Asthma Cancer of mouth Colon cancer Completed stroke Congenital disease Congenital heart disease Cystic fibrosis Deafness or hearing loss Dysphasia Fibrocystic disease of breast Gastroenteritis Infertility Kidney disease Neoplasm Severe allergy Thyroid disease Tuberculosis Visual disorder Physical Exam Vital Signs Vital Signs - First Documented 01/22/19 01/23/19 01/23/19 21:51 00:08 00:32 Temp 97.8 Pulse 100 Resp 24 B/P (MAP) 144/80 (101) Pulse Ox 95 O2 Delivery Room Air Capillary Refill : Height, Weight, BMI Height: 5'0" Weight: 247lbs. 7.0oz. 112.715773ia; 52.2 BMI Method:Actual General Appearance: No Apparent Distress, Obese, Other (SLURRED SPEECH, DROWSY, REEKS OF ALCOHOL, APPEARS INTOXICATED AND POSSIBLY ALSO UNDER THE INFLUENCE OF SOME SUBSTABNCE/S. CANNOT COMPLETE SENTENCES OR FOLLOW COMMANDS. POOR INSIGHT AND POOR SHORT TERM MEMORY; PT HAS BEEN INCONTINENT OF URINE, DIRTY, MALODOROUS, VERY UNKEMPT) HEENT: PERRL/EOMI, Other (EXTENSIVE DENTAL DECAY AND MULTIPLE MISSING TEETH) Neck: Normal Inspection Respiratory: Normal Breath Sounds, No Accessory Muscle Use, No Respiratory Distress Cardiovascular: Regular Rate, Rhythm, No Edema, No Murmur Gastrointestinal: Non Tender, Soft Genital/Rectal: Normal Genital Exam, Other (NO OBVIOUS FOREIGN OBJECTS IN VAGINA ON MANUAL EXAM) Extremity: Normal Capillary Refill, Normal Range of Motion, Non Tender, No Pedal Edema Neurologic/Psychiatric: Other (MENTATION NOTED ABOVE. MOVES ALL EXTREMITIES- NO FOCAL DEFICITS) Skin: Normal Color, Warm/Dry, Other (NO EXTERNAL EVIDENCE OF TRAUMA) Procedures/Interventions Date of ETT Placement: Aug 30, 2017 Time of ETT Placement: 2234 Suture Size: 4-0 Progress/Results/Core Measures Suspected Sepsis SIRS Temperature: Pulse: Respiratory Rate: Laboratory Tests 01/22/19 22:26: White Blood Count 12.9H 01/23/19 02:51: White Blood Count 11.0 Blood Pressure / Mean: Laboratory Tests 01/22/19 22:26: Creatinine 0.68, INR Comment 0.9, Platelet Count 316, Total Bilirubin 0.1 01/23/19 02:51: Creatinine 0.60, Platelet Count 297 Results/Orders Lab Results Laboratory Tests Test 01/22/19 21:57 01/22/19 22:11 01/22/19 22:26 01/23/19 02:51 Range/Units Glucometer 118 H 70-110 MG/DL Urine Color YELLOW Urine Clarity CLEAR Urine pH 6 5-9 Urine Specific [place] 1.005 L 1.016-1.022 Urine Protein NEGATIVE NEGATIVE Urine Glucose (UA) NEGATIVE NEGATIVE Urine Ketones NEGATIVE NEGATIVE Urine Nitrite NEGATIVE NEGATIVE Urine Bilirubin NEGATIVE NEGATIVE Urine Urobilinogen NORMAL NORMAL MG/DL Urine Leukocyte Esterase NEGATIVE NEGATIVE Urine RBC (Auto) NEGATIVE NEGATIVE Urine RBC NONE /HPF Urine WBC NONE /HPF Urine Squamous Epithelial Cells 0-2 /HPF Urine Crystals NONE /LPF Urine Bacteria NEGATIVE /HPF Urine Casts NONE /LPF Urine Mucus NEGATIVE /LPF Urine Culture Indicated NO Urine Opiates Screen NEGATIVE NEGATIVE Urine Oxycodone Screen NEGATIVE NEGATIVE Urine Methadone Screen NEGATIVE NEGATIVE Urine Propoxyphene Screen NEGATIVE NEGATIVE Urine Barbiturates Screen NEGATIVE NEGATIVE Ur Tricyclic Antidepressants Screen NEGATIVE NEGATIVE Urine Phencyclidine Screen NEGATIVE NEGATIVE Urine Amphetamines Screen NEGATIVE NEGATIVE Urine Methamphetamines Screen NEGATIVE NEGATIVE Urine Benzodiazepines Screen POSITIVE H NEGATIVE Urine Cocaine Screen NEGATIVE NEGATIVE Urine Cannabinoids Screen NEGATIVE NEGATIVE White Blood Count 12.9 H 11.0 4.3-11.0 10^3/uL Red Blood Count 4.53 4.29 L 4.35-5.85 10^6/uL Hemoglobin 13.7 12.5 11.5-16.0 G/DL Hematocrit 40 38 35-52 % Mean Corpuscular Volume 89 88 80-99 FL Mean Corpuscular Hemoglobin 30 29 25-34 PG Mean Corpuscular Hemoglobin Concent 34 33 32-36 G/DL Red Cell Distribution Width 14.0 13.9 10.0-14.5 % Platelet Count 316 297 130-400 10^3/uL Mean Platelet Volume 10.7 H 10.7 H 7.4-10.4 FL Neutrophils (%) (Auto) 66 61 42-75 % Lymphocytes (%) (Auto) 27 33 12-44 % Monocytes (%) (Auto) 6 4 0-12 % Eosinophils (%) (Auto) 1 1 0-10 % Basophils (%) (Auto) 0 0 0-10 % Neutrophils # (Auto) 8.5 H 6.7 1.8-7.8 X 10^3 Lymphocytes # (Auto) 3.5 3.7 1.0-4.0 X 10^3 Monocytes # (Auto) 0.7 0.5 0.0-1.0 X 10^3 Eosinophils # (Auto) 0.1 0.1 0.0-0.3 10^3/uL Basophils # (Auto) 0.0 0.0 0.0-0.1 10^3/uL Prothrombin Time 12.8 12.2-14.7 SEC INR Comment 0.9 0.8-1.4 Activated Partial Thromboplast Time 30 24-35 SEC Sodium Level 141 141 135-145 MMOL/L Potassium Level 3.7 3.9 3.6-5.0 MMOL/L Chloride Level 108 H 109 H 98-107 MMOL/L Carbon Dioxide Level 20 L 22 21-32 MMOL/L Anion Gap 13 10 5-14 MMOL/L Blood Urea Nitrogen 15 12 7-18 MG/DL Creatinine 0.68 0.60 0.60-1.30 MG/DL Estimat Glomerular Filtration Rate > 60 > 60 BUN/Creatinine Ratio 22 20 Glucose Level 104 95 70-105 MG/DL Calcium Level 9.2 8.8 8.5-10.1 MG/DL Corrected Calcium 9.5 8.5-10.1 MG/DL Magnesium Level 1.9 1.6 L 1.8-2.4 MG/DL Total Bilirubin 0.1 0.1-1.0 MG/DL Aspartate Amino Transf (AST/SGOT) 16 5-34 U/L Alanine Aminotransferase (ALT/SGPT) 12 0-55 U/L Alkaline Phosphatase 76 40-136 U/L Ammonia 35 H 11-32 UMOL/L Total Protein 6.7 6.4-8.2 GM/DL Albumin 3.6 3.2-4.5 GM/DL Amylase Level 33 25-125 U/L Lipase 46 8-78 U/L TSH [facility] Testing 3.34 0.35-4.94 UIU/ML Acetaminophen Level < 10 L 10-30 UG/ML Serum Alcohol 128 H <10 MG/DL Phosphorus Level 2.7 2.3-4.7 MG/DL My Orders Orders - TEODORA ROCA DO Accucheck Stat ONCE (01/22/19 21:49) Ed Iv/Invasive Line Start (01/22/19 21:49) Ekg Tracing (01/22/19 21:49) Monitor-Rhythm Ecg Trace Only (01/22/19 21:49) Acetaminophen (01/22/19 21:49) Alcohol (01/22/19 21:49) Ammonia (01/22/19 21:49) Amylase (01/22/19 21:49) Cbc With Automated Diff (01/22/19 21:49) Comprehensive Metabolic Panel (01/22/19 21:49) Drug Screen Stat (Urine) (01/22/19 21:49) Lipase (01/22/19 21:49) Magnesium (01/22/19 21:49) Protime With Inr (01/22/19 21:49) Partial Thromboplastin Time (01/22/19 21:49) Thyroid Analyzer (01/22/19 21:49) Ua Culture If Indicated (01/22/19 21:49) Ed Iv/Invasive Line Start (01/22/19 21:49) Catheter(Urinary) Insert & Ass 03,15 (01/22/19 21:55) O2 (01/22/19 21:55) Ed Iv/Invasive Line Start (01/22/19 21:55) Ns Iv 1000 Ml (Sodium Chloride 0.9%) (01/22/19 21:55) Restraints: Behavioral Q15MIN (01/22/19 22:58) Ed Iv/Invasive Line Start (01/22/19 23:33) Lactated Ringers (Lr 1000 Ml Iv Solution (01/22/19 23:33) Medications Given in ED Current Medications Medications Dose Ordered Sig/Garry Route Start Time Stop Time Status Last Admin Dose Admin Sodium Chloride 1,000 ml @ 0 mls/hr Q0M ONCE IV 01/22/19 21:55 01/22/19 21:57 DC 01/22/19 22:27 0 MLS/HR Vital Signs/I&O 01/22/19 01/23/19 01/23/19 01/23/19 21:51 00:08 00:32 01:00 Temp 97.8 97.6 Pulse 100 88 83 84 Resp 24 20 22 B/P (MAP) 144/80 (101) 138/60 (86) 128/89 (102) Pulse Ox 95 98 O2 Delivery Room Air 01/23/19 01/23/19 01/23/19 01/23/19 01:00 01:15 01:30 01:45 Pulse 85 82 78 80 Resp 26 16 16 16 B/P (MAP) 118/75 (89) 139/81 (100) 112/68 (83) 128/85 (99) Pulse Ox 98 98 98 97 O2 Delivery Room Air Room Air Room Air Room Air 01/23/19 01/23/19 01/23/19 01/23/19 02:00 03:00 03:34 04:00 Temp 97.7 Pulse 80 78 76 Resp 17 17 15 B/P (MAP) 131/78 (95) 153/93 (113) 147/90 (109) Pulse Ox 99 97 97 O2 Delivery Room Air Room Air Room Air 01/23/19 01/23/19 05:00 06:00 Pulse 78 75 Resp 15 20 B/P (MAP) 159/86 (110) 159/111 (127) Pulse Ox 96 94 O2 Delivery Room Air Room Air Capillary Refill : Progress Note : Progress Note 2250--PT HAS GOTTEN OUT OF BED, PULLED OUT HER IV IN RIGHT EJ AND CATHETER, STATES SHE "NEEDED TO PEE" AND "DIDN'T KNOW" SHE HAD A CATHETER OR AN IV. PT CLAIMS SHE DIDN'T KNOW SHE PULLED OUT HER CATHETER OR HER IV. PT IS NOT INJURED. PT REPEATEDLY TRYING TO GET OUT OF BED, PULL OUT IV AND CATHETER, AND REPEATS THAT SHE DIDN'T KNOW SHE HAD THEM PT WITH RAPIDLY ESCALATING AGGRESSION AND BELLIGERENT BEHAVIOR INITIALLY PLACED IN SOFT RESTRAINTS, BUT QUICKLY GOT OUT OF THOSE 4 POINT LEATHER RESTRAINTS PLACED, TO PROTECT PT FROM HARMING HERSELF, AND FROM HARMING STAFF, AND FROM PT REPEATEDLY PULLING OUT IV'S AND CATHETER. PT DID HAVE A DROP IN BP, AND GIVEN FLUID BOLUSES WITH BP UP TO > 100 SYSTOLIC AT TIME OF ADMIT. ECG Initial ECG Impression Date: January 22, 2019 Initial ECG Impression Time: 22:00 Initial ECG Rate: 82 Initial ECG Rhythm: Normal Sinus (LAFB) Initial ECG Comparisson: Unchanged Departure Communication (Admissions) 6551--SPOKE WITH DR. LINDSEY, ACCEPTS PT FOR ADMIT Impression Primary Impression: Alcohol intoxication Additional Impressions: BENZODIAZEPINE USE--SUSPECTED EXCESSIVE USE Altered mental status Polysubstance abuse Disposition: ADMITTED INPATIENT Condition: Stable Admissions Decision to Admit Reason: Admit from ER (General) Decision to Admit/Date: January 22, 2019 Time/Decision to Admit Time: 23:15 Departure-Patient Inst. Referrals: HARVEY LINDSEY DO (PCP/Family) Primary Care Physician TEODORA ROCA DO January 22, 2019 22:21
[2019-01-22 22:32] LABS: AMPHETAMINE SCREEN, URINE NEGATIVE (NEGATIVE); BARBITURATE SCREEN URINE NEGATIVE (NEGATIVE); BENZODIAZEPINES SCREEN URINE POSITIVE (NEGATIVE); CANNABINOID SCREEN, URINE NEGATIVE (NEGATIVE); COCAINE SCREEN URINE NEGATIVE (NEGATIVE); METHADONE STAT NEGATIVE (NEGATIVE); METHAMPHETAMINE SCREEN URINE S NEGATIVE (NEGATIVE); OPIATE SCREEN URINE NEGATIVE (NEGATIVE); OXYCODONE STAT NEGATIVE (NEGATIVE); PROPOXYPHENE STAT NEGATIVE (NEGATIVE); TRICYCLIC ANTIDEPRESSANTS SCRE NEGATIVE (NEGATIVE)
[2019-01-22 22:32] LABS: BASOPHILS % (AUTO) 0 % (0-10); EOSINOPHILS # (AUTO) 0.1 10^3/uL (0.0-0.3); EOSINOPHILS % (AUTO) 1 % (0-10); HEMATOCRIT 40 % (35-52); HEMOGLOBIN 13.7 G/DL (11.5-16.0); LYMPHOCYTES # (AUTO) 3.5 X 10^3 (1.0-4.0); LYMPHOCYTES % (AUTO) 27 % (12-44); MEAN CORPUSCULAR HEMOGLOBIN 30 PG (25-34); MEAN CORPUSCULAR HGB CONC 34 G/DL (32-36); MEAN CORPUSCULAR VOLUME 89 FL (80-99); MEAN PLATELET VOLUME 10.7 FL (7.4-10.4); MONOCYTES # (AUTO) 0.7 X 10^3 (0.0-1.0); MONOCYTES % (AUTO) 6 % (0-12); NEUTROPHILS # (AUTO) 8.5 X 10^3 (1.8-7.8); NEUTROPHILS % (AUTO) 66 % (42-75); PLATELET COUNT 316 10^3/uL (130-400); WHITE BLOOD COUNT 12.9 10^3/uL (4.3-11.0)
[2019-01-22 22:35] LABS: BACTERIA,URINE NEGATIVE /HPF; SQUAMOUS EPITHELIAL CELL,UR 0-2 /HPF
--- NOTE | 2019-01-22 22:35 | NUR ---
pt pulled out her iv
[2019-01-22 22:50] LABS: INR 0.9 (0.8-1.4); PROTHROMBIN TIME PATIENT 12.8 SEC (12.2-14.7)
[2019-01-22 22:52] LABS: ALANINE AMINOTRANSFERASE 12 U/L (0-55); ALBUMIN 3.6 GM/DL (3.2-4.5); ALKALINE PHOSPHATASE 76 U/L (40-136); AMMONIA 35 UMOL/L (11-32); AMYLASE 33 U/L (25-125); BILIRUBIN,TOTAL 0.1 MG/DL (0.1-1.0); BUN/CREATININE RATIO 22; CALCIUM 9.2 MG/DL (8.5-10.1); CARBON DIOXIDE 20 MMOL/L (21-32); CHLORIDE 108 MMOL/L (98-107); CREATININE SERUM 0.68 MG/DL (0.60-1.30); GFR ESTIMATED > 60; GLUCOSE 104 MG/DL (70-105); LIPASE 46 U/L (8-78); MAGNESIUM 1.9 MG/DL (1.8-2.4); POTASSIUM 3.7 MMOL/L (3.6-5.0); SODIUM 141 MMOL/L (135-145); TOTAL PROTEIN 6.7 GM/DL (6.4-8.2)
[2019-01-22 22:59] LABS: ACETAMINOPHEN < 10 UG/ML (10-30)
--- NOTE | 2019-01-22 23:05 | NUR ---
pt got out of bed. pulled her ej iv out of her neck . pt pulled out her arenas. pt noncooperative. being beligerent at times. another nurse doing arenas again and helping me clean pt etc. bp machineis 77/63 tele shows sr 86 p ox r/a is 95bp appears to be similiar when i took it again. i restarted iv 20 g r f/a on 2nd try and restarted ivfs.
[2019-01-22 23:11] LABS: TSH (THYROID ANALYZER) 3.34 UIU/ML (0.35-4.94)
--- NOTE | 2019-01-22 23:25 | NUR ---
pt placed in soft restraints x 4.
[2019-01-22] MEDS ORDERED: LACTATED RINGERS 1,000 ML IV ONE (23:33)
--- NOTE | 2019-01-22 23:44 | NUR ---
pt remains alert gcs 15. pt continue to be non cooperative. getting out of both wrist soft restraints. no acute sighns of dyspnea noted. pt wants to leave ama and wants to talk with dr. i let dr know and she will see pt. bp machine is 116/69 tele shows sr 80 p ox r/a is 95.
--- NOTE | 2019-01-22 23:53 | NUR ---
i called susannah sup about 1 on . i havnt been able toleave room. pt trying to get out of bed and keeps getting out of the soft restraints. she said get tech to sit with pt and once pt gets to floor she can find sitter for pt.
[2019-01-23] VITALS (26 sets, daily range): BP systolic 102–161; BP diastolic 58–111
--- NOTE | 2019-01-23 00:04 | NUR ---
i called report to admit nurse
--- NOTE | 2019-01-23 00:08 | NUR ---
i am taking pt to admit room now with tech. bp machine is 138/60 tele shows sr 88. 100 left in 1st bolus and 700 left in 2nd bolus. both continue to floor. pt apparantely now in leather restraints x 4.
--- NOTE | 2019-01-23 00:15 | NUR ---
Pt to ICU 7 via stretcher, with RN and tech, with four-point leather restraints. Pt transferred to bed, monitors attached to pt, pt thrashing in bed, yelling at staff, "you are all bitches and I'm going to get you all fired." Therapeutic communication attempted. Pt verbalized understanding, then becomes tearful, saying "Fuck it, I don't care if I " but denies wishing to harm self. Pt reports taking "two blue Xanax" and drinking prior to coming in, but does not know how she got to hospital. Pt forgetful, and labile in emotional state, repeats self frequently. Pt states "I just want to see my mom, she's in here, where's your petroleum inspector supervisor, I'm getting you fired". Otm Consultant, Kait, called, updated on pt situation, petroleum inspector supervisor to see pt, therapeutic communication again attempted by both this RN and petroleum inspector supervisor, reinforcement needed almost constantly. Addendum: 01/23/19 at 3913 by SOPHIE ORLANDO RN At [id number], Otm Consultant updated pt on mother's condition per pt request and consent of mother. Pt remains unable to set up password at this time d/t altered mental status
[2019-01-23] MEDS ORDERED: LORazepam INJ 2 MG/ML (ATIVAN) VIAL ONE (00:42)
[2019-01-23] MEDS: LORazepam INJ 2 MG/ML (ATIVAN) VIAL IV PRN ×3 (00:50→04:40)
[2019-01-23] MEDS ORDERED: 1/2 NS IV SOLUTION 1,000 ML IV PRN (00:51)
[2019-01-23] MEDS ORDERED: ONDANSETRON 4 MG (ZOFRAN) ORAL DISSOLVE TAB SL PRN (01:00)
[2019-01-23] MEDS ORDERED: ONDANSETRON 4 MG/2 ML (SDV) Z0FRAN IV PRN (01:00)
[2019-01-23] MEDS ORDERED: LORazepam INJ 2 MG/ML (ATIVAN) VIAL IM/IV PRN (01:00)
[2019-01-23] MEDS ORDERED: ANTACID SUSP 30 ML UDC (MYLANTA) PO PRN (01:00)
[2019-01-23] MEDS ORDERED: D5 1/2 NS 1000 ML IV SOLUTION 1,000 ML IV PRN (01:00)
[2019-01-23] MEDS ORDERED: SENNA W/DOCUSATE (SENOKOT S) TABLET PO PRN (01:00)
[2019-01-23] MEDS ORDERED: LORazepam 1 MG (ATIVAN) TAB PO PRN (01:00)
[2019-01-23] MEDS: D5 1/2 NS W/KCL 20 MEQ/L 1,000 ML IV SCH ×5 (01:32→21:36)
[2019-01-23 03:28] LABS: BASOPHILS % (AUTO) 0 % (0-10); EOSINOPHILS # (AUTO) 0.1 10^3/uL (0.0-0.3); EOSINOPHILS % (AUTO) 1 % (0-10); HEMATOCRIT 38 % (35-52); HEMOGLOBIN 12.5 G/DL (11.5-16.0); LYMPHOCYTES # (AUTO) 3.7 X 10^3 (1.0-4.0); LYMPHOCYTES % (AUTO) 33 % (12-44); MEAN CORPUSCULAR HEMOGLOBIN 29 PG (25-34); MEAN CORPUSCULAR HGB CONC 33 G/DL (32-36); MEAN CORPUSCULAR VOLUME 88 FL (80-99); MEAN PLATELET VOLUME 10.7 FL (7.4-10.4); MONOCYTES # (AUTO) 0.5 X 10^3 (0.0-1.0); MONOCYTES % (AUTO) 4 % (0-12); NEUTROPHILS # (AUTO) 6.7 X 10^3 (1.8-7.8); NEUTROPHILS % (AUTO) 61 % (42-75); PLATELET COUNT 297 10^3/uL (130-400); RED CELL DISTRIBUTION WIDTH 13.9 % (10.0-14.5)
[2019-01-23 03:52] LABS: BUN/CREATININE RATIO 20; CALCIUM 8.8 MG/DL (8.5-10.1); CARBON DIOXIDE 22 MMOL/L (21-32); CHLORIDE 109 MMOL/L (98-107); GFR ESTIMATED > 60; GLUCOSE 95 MG/DL (70-105); MAGNESIUM 1.6 MG/DL (1.8-2.4); PHOSPHORUS 2.7 MG/DL (2.3-4.7); POTASSIUM 3.9 MMOL/L (3.6-5.0); SODIUM 141 MMOL/L (135-145)
--- NOTE | 2019-01-23 04:17 | NUR ---
0250--Pt more cooperative, apologizing for earlier behavior, right ankle released from leather restraint at this time, no s/s of injury 0318--Pt continues to be cooperative, left wrist restraint released, slight reddened area noted from where pt had been thrashing in bed earlier, pt educated and informed of actions/consequences and again reoriented to plan of care, pt verbalizes understanding, needs reinforcement, story of how much alcohol pt has had to drink has changed over this RN's shift (from 2 "swigs" to a pint to half a pint, to two drinks) 034--Pt thrashing in bed, requesting to leave AMA, this RN attempted therapeutic communication, this RN reminded pt of benefits of staying calm, pt states "when I get out of here, you won't ever see me again. I'm leaving and noone will ever see me again." When this RN asked what pt meant by that, pt yelled "I'm moving, ok, that's it". Pt continues to yell, requesting to finishing supervisor again, typists supervisor notified 399--Pt aggressive, combative, thrashing in bed, all four restraints back on at this time, pt yelling, wanting to speak to typists supervisor 040--Limousine Driver to bedside and this RN to bedside, therapeutic communication attempted, pt repeating "alcohol is legal" when reinforced the initial reason of visit/diagnosis, pt states she does not know why she is here, although earlier had stated that her sister brought her. Pt arguing with typists supervisor, then states "Whatever. Fuck you". Limousine Driver left room at this time, pt continues to thrash in bed. Will continue to monitor
--- NOTE | 2019-01-23 04:20 | NUR ---
Pt yelling "I'll alan you, my uncle is a retail banking manager at [employer]." Will continue to monitor.
--- NOTE | 2019-01-23 04:58 | Pulmonary Consultation ---
History of Present Illness History of Present Illness Date of Consultation 01/23/19 04:52 Time Seen by Provider: 04:52 Date of Admission History of Present Illness 48yo with hx of alcohol and drug use was dropped off at ED by unknown person secondary to worsening confusion/agitation. UDS was positive for benzos and Alcohol level was 128 in ED. She will not answer questions however does yell out. Currently she is ICU in 4 point leather restraints secondary to acute psychosis. Pt has been intubated in the past secondary to OD/polysubstance abuse.She currently denies suicidal ideation. Pt went into cardiac arrest 08/30/17. I am consulted for pulmonary/CC management. Allergies and Home Medications Allergies Coded Allergies: No Known Drug Allergies (Unverified , 04/03/18) Home Medications Albuterol Sulfate 1 Puff Puff, 2 PUFF INH TID PRN for SHORTNESS OF BREATH, (Reported) Alprazolam 0.25 Mg Tablet, 0.25 MG PO TID PRN for ANXIETY, (Reported) Amitriptyline HCl 25 Mg Tablet, 25 MG PO HS, (Reported) Amlodipine Besylate 5 Mg Tablet, 5 MG PO DAILY, (Reported) Cyclobenzaprine HCl 10 Mg Tablet, 10 MG PO BID PRN for MUSCLE SPASMS, (Reported) Diclofenac Sodium 100 Gm Gel..gram., 100 GM TP TID Prescribed by: NUBIA JASON on 06/17/182203 Diphenhydramine HCl 25 Mg Capsule, 75 MG PO HS PRN for SLEEP, (Reported) TAKES 3 (25MG) CAPSULES Duloxetine HCl 60 Mg Capsule.dr, 60 MG PO DAILY, (Reported) TAKES ALONG WITH 30MG CAPSULE FOR A TOTAL DAILY DOSE OF 90MG Duloxetine HCl 30 Mg Capsule.dr, 30 MG PO DAILY, (Reported) TAKES ALONG WITH 60MG CAPSULE FOR A TOTAL DAILY DOSE OF 90MG Lisinopril 10 Mg Tablet, 10 MG PO DAILY, (Reported) Meloxicam 15 Mg Tablet, 15 MG PO DAILY, (Reported) Naproxen 500 Mg Tablet, 500 MG PO BID PRN for PAIN-MILD, (Reported) Prednisone 20 Mg Tab, 40 MG PO DAILY Prescribed by: DOMINGO NOBLES on 12/13/18 2222 Quetiapine Fumarate 100 Mg Tablet, 100 MG PO HS, (Reported) Past Isbsodm-Hkovmd-Eipmhh Hx Patient Social History Alcohol Use: Regular Use Alcohol Beverage of Choice: Vodka Recreational Drug Use: No Drug of Choice: MARIJUANA Smoking Status: Current Everyday Smoker Type Used: Cigarettes 2nd Hand Smoke Exposure: Yes Recent Foreign Travel: No Contact w/Someone Who Travel: No Recent Infectious Disease Expo: No Recent Hopitalizations: No Physical Abuse: No Sexual Abuse: No Immunizations Up To Date Tetanus Booster (TDap): Unknown Date of Pneumonia Vaccine: Apr 26, 2015 Date of Influenza Vaccine: Jul 10, 2017 Seasonal Allergies Seasonal Allergies: No Past Medical History Surgeries: Yes (NATHALIE/CARPEL TUNNEL, KIDNEY STONE-STENT/LITHOTRIPSY) Gallbladder, Hysterectomy, Orthopedic, Renal, Tubal Ligation Respiratory: Yes (HX OF P.E.--OFF ANTICOAGULANTS FOR OVER A YEAR, PER PT ON 05/23/17) Pneumonia, Chronic Bronchitis, Pulmonary Embolism Currently Using CPAP: No Currently Using BIPAP: No Cardiac: Yes Hypertension Neurological: Yes (PSUEDOSEIZURES) Headaches /Migraines, Seizure Disorder 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 Disorders: No Female 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 Disorders: 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 EXTENSIVE DENTAL CARIES/LEGALLY BLIND) Loss of Vision: Bilateral Cancer: No Psychosocial: Yes Pseudo Seizures, Sleep Difficulties, Anxiety, Suicide Attempts, Depression Integumentary: No Blood Disorders: No Family Medical History Alcoholism 19 FATHER (grandfather) Alzheimer's disease 19 MOTHER (grandmother) Arthritis 19 FATHER Cardiovascular disease 19 FATHER 19 MOTHER Cataracts 19 MOTHER Coronary thrombosis 19 FATHER Dementia 19 MOTHER (grandparents) Diabetes mellitus 19 MOTHER Drug abuse 19 FATHER Glaucoma 19 FATHER (grandfather) Headache disorder 19 FATHER Hypercholesterolemia 19 FATHER Hypertension 19 FATHER Myocardial infarction 19 FATHER Parkinson's disease 19 MOTHER Prostate cancer 19 MOTHER (uncle brother of mother) Psychosocial problem 19 FATHER Respiratory disorder 19 FATHER (grandfather) Seizure disorder 19 MOTHER No Family History of: AIDS Abdominal aortic aneurysm Haines's disease Aphasia Asthma Cancer of mouth Colon cancer Completed stroke Congenital disease Congenital heart disease Cystic fibrosis Deafness or hearing loss Dysphasia Fibrocystic disease of breast Gastroenteritis Infertility Kidney disease Neoplasm Severe allergy Thyroid disease Tuberculosis Visual disorder Review of Systems Time Seen by Provider: 05:16 Sepsis Event Evaluation Height, Weight, BMI Height: 5'0.00" Weight: 257lbs. 0.0oz. 116.080679oq; 50.2 BMI Method:Stated Exam Exam Vital Signs Date Time Temp Pulse Resp B/P (MAP) Pulse Ox O2 Delivery O2 Flow Rate FiO2 01/23/19 04:00 76 15 147/90 (109) 97 Room Air 01/23/19 03:34 97.7 01/23/19 03:00 78 17 153/93 (113) 97 Room Air 01/23/19 02:00 80 17 131/78 (95) 99 Room Air 01/23/19 01:45 80 16 128/85 (99) 97 Room Air 01/23/19 01:30 78 16 112/68 (83) 98 Room Air 01/23/19 01:15 82 16 139/81 (100) 98 Room Air 01/23/19 01:00 85 26 118/75 (89) 98 Room Air 01/23/19 01:00 84 01/23/19 00:32 97.6 83 22 128/89 (102) 98 Room Air 01/23/19 00:08 88 20 138/60 (86) 95 01/22/19 21:51 97.8 100 24 144/80 (101) I & O 01/23/19 07:00 Intake Total 2000 ml Output Total 350 ml Balance 1650 ml Height & Weight Height: 5'0.00" Weight: 257lbs. 0.0oz. 116.471059xo; 50.2 BMI Method:Stated General Appearance: Anxious, Moderate Distress HEENT: PERRL/EOMI, Normal ENT Inspection, Pharynx Normal Neck: Full Range of Motion, Non Tender, Supple Respiratory: Chest Non Tender, No Accessory Muscle Use, No Respiratory Distress, Decreased Breath Sounds Cardiovascular: Regular Rate, Rhythm, No Edema Capillary Refill: Less Than 3 Seconds Gastrointestinal: normal bowel sounds, non tender, soft Extremity: Normal Capillary Refill, Normal Inspection, No Pedal Edema Neurologic/Psychiatric: Alert, Disoriented Skin: Normal Color, Warm/Dry Lymphatic: No Adenopathy Results Lab Laboratory Tests 01/22/19 22:26 01/23/19 02:51 Assessment/Plan Assessment/Plan Acute alcohol intoxication -Pt has had 7mg of Ativan last night -Will start Precedex gtt - Ativan, add Jann, and Morphine Acute psychosis - -Pt is currently in 4 point leather restraints --BHARGAV Jones DO January 23, 2019 04:57
[2019-01-23] MEDS ORDERED: LORazepam INJ 2 MG/ML (ATIVAN) VIAL IV PRN (05:00)
[2019-01-23] MEDS ORDERED: ZIPRASIDONE 20 MG INJ (GEODON) VIAL IM ONE (05:00)
[2019-01-23] MEDS ORDERED: WATER (STERILE) FOR INJECTION 10 ML ONE ×2 (05:11→21:19)
[2019-01-23] MEDS: DEXMEDETOMIDINE INJECTION 200 MCG in NS (IVPB) 50 ML IV SCH ×3 (05:14→13:48)
[2019-01-23] MEDS ORDERED: morphine INJ 4 MG/ML 1 ML (VIAL/SYRINGE) IVP PRN (05:15)
--- NOTE | 2019-01-23 05:57 | NUR ---
0530--Pt more cooperative, reports feeling better, agreeable at this time, end-tidal co2 placed at this time 43 is current reading 0540--Pt resting in bed with eyes closed, respirations even and unlabored, all restraints off at this time, end-tidal co2 is 44 at this time, sitter remains at bedside at this time
[2019-01-23] MEDS: KCL 20 MEQ TAB (K-DUR) PO SCH (06:08)
[2019-01-23] MEDS: POTASSIUM CL 10MEQ/50ML IVPB 50 ML IV SCH (06:08)
[2019-01-23] MEDS: MAGNESIUM 1 GM/100 ML IVPB 100 ML IV SCH (06:09)
--- NOTE | 2019-01-23 07:33 | History & Physicial ---
History of Present Illness History of Present Illness Reason for visit/HPI Patient was in emergency room by an unknown person Patient intoxicated. Drug screen shows Xanax. Patient pulled out IV and Ferguson catheter. Patient confused and agitated. Patient admitted to ICU. Patient this morning sleeping comfortably and not awake Patient received Geodon for psychosis Date of Admission January 22, 2019 at 23:15 Time Seen by a Provider: 07:26 I consulted on this patient on 01/23/19 07:26 Attending Physician Harvey Lindsey DO Admitting Physician Harvey Lindsey DO Consult Allergies and Home Medications Allergies Coded Allergies: No Known Drug Allergies (Unverified , 04/03/18) Home Medications Albuterol Sulfate 1 Puff Puff, 2 PUFF INH TID PRN for SHORTNESS OF BREATH, (Reported) Alprazolam 0.25 Mg Tablet, 0.25 MG PO TID PRN for ANXIETY, (Reported) Amitriptyline HCl 25 Mg Tablet, 25 MG PO HS, (Reported) Amlodipine Besylate 5 Mg Tablet, 5 MG PO DAILY, (Reported) Cyclobenzaprine HCl 10 Mg Tablet, 10 MG PO BID PRN for MUSCLE SPASMS, (Reported) Diclofenac Sodium 100 Gm Gel..gram., 100 GM TP TID Prescribed by: NUBIA JASON on 06/17/182203 Diphenhydramine HCl 25 Mg Capsule, 75 MG PO HS PRN for SLEEP, (Reported) TAKES 3 (25MG) CAPSULES Duloxetine HCl 60 Mg Capsule.dr, 60 MG PO DAILY, (Reported) TAKES ALONG WITH 30MG CAPSULE FOR A TOTAL DAILY DOSE OF 90MG Duloxetine HCl 30 Mg Capsule.dr, 30 MG PO DAILY, (Reported) TAKES ALONG WITH 60MG CAPSULE FOR A TOTAL DAILY DOSE OF 90MG Lisinopril 10 Mg Tablet, 10 MG PO DAILY, (Reported) Meloxicam 15 Mg Tablet, 15 MG PO DAILY, (Reported) Naproxen 500 Mg Tablet, 500 MG PO BID PRN for PAIN-MILD, (Reported) Prednisone 20 Mg Tab, 40 MG PO DAILY Prescribed by: DOMINGO NOBLES on 12/13/182221 Quetiapine Fumarate 100 Mg Tablet, 100 MG PO HS, (Reported) Patient Home Medication List Home Medication List Reviewed: No Past Vohpixh-Dzumuc-Kvbahy Hx Patient Social History Marrital Status: Alcohol Use: Regular Use Alcohol Beverage of Choice: Vodka Recreational Drug Use: No Drug of Choice: MARIJUANA Smoking Status: Current Everyday Smoker Type Used: Cigarettes 2nd Hand Smoke Exposure: Yes Recent Foreign Travel: No Contact w/other who traveled: No Recent Hopitalizations: No Recent Infectious Disease Expo: No Immunizations Up To Date Tetanus Booster (TDap): Unknown Date of Pneumonia Vaccine: Apr 26, 2015 Date of Influenza Vaccine: Jul 10, 2017 Seasonal Allergies Seasonal Allergies: No Surgeries Yes (NATHALIE/CARPEL TUNNEL, KIDNEY STONE-STENT/LITHOTRIPSY) Gallbladder, Hysterectomy, Orthopedic, Renal, Tubal Ligation Respiratory Yes (HX OF P.E.--OFF ANTICOAGULANTS FOR OVER A YEAR, PER PT ON 05/23/17) Asthma, COPD, Pulmonary Embolism Currently Using CPAP: No Currently Using BIPAP: No Cardiovascular Yes Hypertension Neurological Yes (PSUEDOSEIZURES) Headaches /Migraines, Seizure Disorder 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 System Hx 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 Disorders: No Sexually Transmitted Disease: No HIV/AIDS: No Female 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 EXTENSIVE DENTAL CARIES/LEGALLY BLIND) Loss of Vision: Bilateral Cancer No Psychosocial History of Psychiatric Problem: Yes Behavioral Health Disorders: Pseudo Seizures, Sleep Difficulties, Anxiety, Suicide Attempts, Depression Integumentary History of Skin or Integumenta: No Blood Transfusions History of Blood Disorders: No Family Medical History Family Hx: Alcoholism 19 FATHER (grandfather) Alzheimer's disease 19 MOTHER (grandmother) Arthritis 19 FATHER Cardiovascular disease 19 FATHER 19 MOTHER Cataracts 19 MOTHER Coronary thrombosis 19 FATHER Dementia 19 MOTHER (grandparents) Diabetes mellitus 19 MOTHER Drug abuse 19 FATHER Glaucoma 19 FATHER (grandfather) Headache disorder 19 FATHER Hypercholesterolemia 19 FATHER Hypertension 19 FATHER Myocardial infarction 19 FATHER Parkinson's disease 19 MOTHER Prostate cancer 19 MOTHER (uncle brother of mother) Psychosocial problem 19 FATHER Respiratory disorder 19 FATHER (grandfather) Seizure disorder 19 MOTHER No Family History of: AIDS Abdominal aortic aneurysm Bacon's disease Aphasia Asthma Cancer of mouth Colon cancer Completed stroke Congenital disease Congenital heart disease Cystic fibrosis Deafness or hearing loss Dysphasia Fibrocystic disease of breast Gastroenteritis Infertility Kidney disease Neoplasm Severe allergy Thyroid disease Tuberculosis Visual disorder Review of Systems Constitutional: other (Sleeping comfortably, not answering questions) Physical Exam Vital Signs Vital Signs - First Documented 01/22/19 01/23/19 01/23/19 21:51 00:08 00:32 Temp 97.8 Pulse 100 Resp 24 B/P (MAP) 144/80 (101) Pulse Ox 95 O2 Delivery Room Air Capillary Refill : Less Than 3 Seconds Height, Weight, BMI Height: 5'0.00" Weight: 257lbs. 0.0oz. 116.953632if; 50.2 BMI Method:Stated General Appearance: No Apparent Distress, WD/WN HEENT: Normal ENT Inspection Neck: Normal Inspection Respiratory: Lungs Clear, No Accessory Muscle Use, No Respiratory Distress Cardiovascular: Regular Rate, Rhythm, No Murmur Gastrointestinal: Non Tender, Soft Assessment/Plan Assessment and Plan Alcoholic intoxication. Acute psychosis. Positive alprazolam. Hypertension. History of depression Admission Diagnosis Admission Status: Inpatient Order (span 2 midnights) Reason for Inpatient Admission: Acute psychosis. Alcoholic intoxication. History of depression. Hypertension history Clinical Quality Measures DVT/VTE Risk/Contraindication: Risk Factor Score Per Nursin RFS Level Per Nursing on Admit: 3=High HARVEY LINDSEY DO January 23, 2019 07:33
[2019-01-23] MEDS ORDERED: THIAMINE INJECTION 100 MG, FOLIC ACID INJECTION 1 MG, MAGNESIUM SULFATE 2 GM, VITAMIN M... IV SCH ×5 (09:00)
[2019-01-23] MEDS: ENOXAPARIN 60 MG/0.6 ML (LOVENOX) SYR SC SCH ×2 (09:21→21:36)
[2019-01-23] MEDS: ZIPRASIDONE 20 MG INJ (GEODON) VIAL IM SCH ×2 (09:24→21:34)
--- NOTE | 2019-01-23 09:24 | NUR ---
shay held at this time r/t initial dose given approx 530 am, et patient cannot have more then 40mg daily. Patient has another dose scheduled at 2100.
[2019-01-23] MEDS ORDERED: GABA-488 PO (10:46)
[2019-01-23] MEDS ORDERED: AMLO10TA7 PO (10:46)
[2019-01-23] MEDS ORDERED: ALPR0.5T7 PO (10:46)
[2019-01-23] MEDS ORDERED: ALPR1TAB7 PO (10:46)
[2019-01-23] MEDS ORDERED: LISI-552 PO (10:46)
--- NOTE | 2019-01-23 10:51 | NUR ---
UNABLE TO SPEAK WITH THE PATIENT AT THIS TIME. I UPDATED THE MED REC WITH THE EXT MED HX. A FEW PRESCRIPTIONS WERE SLIGHTLY PAST DUE AND I NOTED THE PAST DUE FILL DATE. ANYTHING SIGNIFICANTLY PAST DUE FOR REFILL WAS REMOVED FROM THE MED REC. I LEFT THE INHALER NEEDED AND BENADRYL OTC PRN THAT HAD BEEN REPORTED AT HER PREVIOUS VISIT. NURSE WILL CONTACT ME WHEN PATIENT IS ABLE TO BE INTERVIEWED IF MORE CLARIFICATION IS NEEDED AT A LATER TIME.
--- NOTE | 2019-01-23 10:55 | NUR ---
CM/SS patient is sedated and sleeping. Unable to speak with her at this time. Will continue to follow.
[2019-01-23] MEDS ORDERED: DEXMEDETOMIDINE INJECTION 1,000 MCG in NS (IVPB) 250 ML IV SCH (13:15)
--- NOTE | 2019-01-23 15:54 | NUR ---
CM/SS patient is still sleeping, unable to converse with her at this time.
[2019-01-24] VITALS (7 sets, daily range): BP systolic 128–166; BP diastolic 83–107
[2019-01-24] MEDS: D5 1/2 NS W/KCL 20 MEQ/L 1,000 ML IV SCH (02:40)
[2019-01-24 03:33] LABS: BASOPHILS % (AUTO) 0 % (0-10); EOSINOPHILS # (AUTO) 0.2 10^3/uL (0.0-0.3); EOSINOPHILS % (AUTO) 3 % (0-10); HEMATOCRIT 40 % (35-52); HEMOGLOBIN 13.6 G/DL (11.5-16.0); LYMPHOCYTES # (AUTO) 2.9 X 10^3 (1.0-4.0); LYMPHOCYTES % (AUTO) 32 % (12-44); MEAN CORPUSCULAR HEMOGLOBIN 30 PG (25-34); MEAN CORPUSCULAR HGB CONC 34 G/DL (32-36); MEAN CORPUSCULAR VOLUME 89 FL (80-99); MEAN PLATELET VOLUME 10.7 FL (7.4-10.4); MONOCYTES # (AUTO) 0.3 X 10^3 (0.0-1.0); MONOCYTES % (AUTO) 3 % (0-12); NEUTROPHILS # (AUTO) 5.6 X 10^3 (1.8-7.8); NEUTROPHILS % (AUTO) 62 % (42-75); PLATELET COUNT 268 10^3/uL (130-400); WHITE BLOOD COUNT 9.1 10^3/uL (4.3-11.0)
[2019-01-24 04:02] LABS: BUN/CREATININE RATIO 10; CALCIUM 8.7 MG/DL (8.5-10.1); CARBON DIOXIDE 20 MMOL/L (21-32); CHLORIDE 111 MMOL/L (98-107); CREATININE SERUM 0.61 MG/DL (0.60-1.30); GFR ESTIMATED > 60; GLUCOSE 103 MG/DL (70-105); MAGNESIUM 1.9 MG/DL (1.8-2.4); PHOSPHORUS 3.3 MG/DL (2.3-4.7); POTASSIUM 4.2 MMOL/L (3.6-5.0); SODIUM 139 MMOL/L (135-145)
--- NOTE | 2019-01-24 05:00 | NUR ---
Pt awake and fully alert at this time, reports remembering taking "at least two Xanax" and "drinking something, I don't know what". Pt states she remembers this RN from last night but does not remember much else of the last 24+ hours. Pt apologetic, stating that she remembers being "a grouch" and "saying mean things". Pt reports having "early-onset Alzheimer's" and that she has "memory problems", so sometimes "I take Xanax and other medications and don't remember that I've taken them." Therapeutic communication attempted, this RN educated pt on proper medication usage and ways to prevent medication abuse. Pt verbalized understanding, reinforcement needed.
--- NOTE | 2019-01-24 05:36 | Pulmonary Progress Note ---
Subjective Time Seen by a Provider: 06:42 Subjective/Events-last exam Pt is doing better. No complications noted. Sepsis Event Evaluation Height, Weight, BMI Height: 5'0.00" Weight: 257lbs. 0.0oz. 116.930283ya; 50.2 BMI Method:Stated Exam Exam Vital Signs Date Time Temp Pulse Resp B/P (MAP) Pulse Ox O2 Delivery O2 Flow Rate FiO2 01/24/19 04:00 70 30 152/87 (108) 95 Room Air 01/24/19 04:00 Room Air 01/24/19 03:00 68 29 128/83 (98) 95 Room Air 01/24/19 02:10 97 Room Air 01/24/19 02:00 66 31 132/87 (102) 96 Room Air 01/24/19 01:00 67 31 140/93 (109) 95 Room Air 01/24/19 01:00 67 01/24/19 00:24 97.0 01/24/19 00:00 Room Air 01/24/19 00:00 69 29 137/87 (104) 94 Room Air 01/23/19 23:00 67 28 129/87 (101) 95 Room Air 01/23/19 22:10 97 Room Air 01/23/19 22:00 60 27 136/95 (109) 100 Room Air 01/23/19 21:00 55 19 136/97 (110) 97 Room Air 01/23/19 20:00 57 30 145/104 (118) 96 Room Air 01/23/19 20:00 Room Air 01/23/19 19:47 96.4 01/23/19 19:00 56 27 130/93 (105) 96 Room Air 01/23/19 19:00 60 01/23/19 18:37 96 Room Air 01/23/19 17:00 61 11 142/64 (90) 100 Room Air 01/23/19 16:00 59 48 98 Room Air 01/23/19 16:00 94 Room Air 01/23/19 15:55 97.2 01/23/19 15:00 59 26 129/70 (89) 95 Room Air 01/23/19 14:00 56 28 130/64 (86) 96 Room Air 01/23/19 13:00 56 24 122/86 (98) 98 Room Air 01/23/19 12:58 56 01/23/19 12:00 61 23 124/87 (99) 94 Room Air 01/23/19 12:00 94 Room Air 01/23/19 11:50 97.6 01/23/19 11:00 58 25 106/76 (86) 95 Room Air 01/23/19 10:00 55 24 102/71 (81) 94 Room Air 01/23/19 09:00 54 26 104/63 (77) 96 Room Air 01/23/19 08:00 58 28 109/58 (75) 96 Room Air 01/23/19 07:50 94 Room Air 01/23/19 07:43 96.7 61 20 109/63 (78) 94 Room Air 01/23/19 07:01 66 01/23/19 07:00 66 24 161/93 (115) 93 Room Air 01/23/19 06:00 75 20 159/111 (127) 94 Room Air I & O 01/24/19 07:00 Intake Total 2660.4 ml Output Total 4550 ml Balance -1889.6 ml Height & Weight Height: 5'0.00" Weight: 257lbs. 0.0oz. 116.634115zj; 50.2 BMI Method:Stated General Appearance: No Apparent Distress, Obese, Other (SLURRED SPEECH, DROWSY, REEKS OF ALCOHOL, APPEARS INTOXICATED AND POSSIBLY ALSO UNDER THE INFLUENCE OF SOME SUBSTABNCE/S. CANNOT COMPLETE SENTENCES OR FOLLOW COMMANDS. POOR INSIGHT AND POOR SHORT TERM MEMORY; PT HAS BEEN INCONTINENT OF URINE, DIRTY, MALODOROUS, VERY UNKEMPT) HEENT: PERRL/EOMI, Other (EXTENSIVE DENTAL DECAY AND MULTIPLE MISSING TEETH) Neck: Normal Inspection Respiratory: Normal Breath Sounds, No Accessory Muscle Use, No Respiratory Distress Cardiovascular: Regular Rate, Rhythm, No Edema, No Murmur Capillary Refill: Less Than 3 Seconds Gastrointestinal: normal bowel sounds, non tender, soft Extremity: Normal Capillary Refill, Normal Range of Motion, Non Tender, No Pedal Edema Neurologic/Psychiatric: Other (MENTATION NOTED ABOVE. MOVES ALL EXTREMITIES- NO FOCAL DEFICITS) Skin: Normal Color, Warm/Dry, Other (NO EXTERNAL EVIDENCE OF TRAUMA) Lymphatic: No Adenopathy Results Lab Laboratory Tests 01/22/19 22:26 01/23/19 02:51 01/24/19 03:09 Assessment/Plan Assessment/Plan Acute alcohol intoxication -Precedex is off - Ativan, Geodon, and Morphine Acute psychosis - improved -Pt is doing better -Geodon- change to PO PT is ok for discharge or transfer to [facility] from my standpoint. BHARGAV ROUSSEAU DO Jan 24, 2019 05:36
[2019-01-24] MEDS: POTASSIUM CL 10MEQ/50ML IVPB 50 ML IV SCH (06:39)
[2019-01-24] MEDS: MAGNESIUM 1 GM/100 ML IVPB 100 ML IV SCH (06:39)
[2019-01-24] MEDS: KCL 20 MEQ TAB (K-DUR) PO SCH (06:40)
[2019-01-24] MEDS ORDERED: ZIPRASIDONE 20 MG (GEODON) CAP PO SCH (07:00)
--- NOTE | 2019-01-24 07:45 | NUR ---
Received pt from ICU, pt at this time asked when Doctor would be through. This RN explained that it would be Dr. De La Garza and this RN was not sure when would be on the floor. Pt stated that she would like to sign herself out AMA to attend her grandson's first birthday green party. Dr. De La Garza notified.
--- NOTE | 2019-01-24 08:34 | NUR ---
Pt left on foot at this time with stable gait stating that she was going down to meet a taxi.
[2019-01-24] MEDS ORDERED: LORazepam INJ 2 MG/ML (ATIVAN) VIAL IV PRN (09:00)
[2019-01-24] MEDS ORDERED: THIAMINE INJECTION 100 MG, FOLIC ACID INJECTION 1 MG, MAGNESIUM SULFATE 2 GM, VITAMIN M... IV SCH ×5 (09:00)
--- NOTE | 2019-01-24 11:52 | Discharge Summary-Hospitalist ---
Diagnosis/Chief Complaint Date of Admission January 22, 2019 at 23:15 Date of Discharge Jan 24, 2019 at 08:34 Discharge Diagnosis (1) Left against medical advice Status: Acute (2) Altered level of consciousness Status: Acute (3) Polysubstance abuse Status: Acute (4) Alcohol intoxication Status: Acute Discharge Summary Discharge Physical Exam Allergies: Coded Allergies: No Known Drug Allergies (Unverified , 04/03/18) Vitals & I&Os Vital Signs Date Time Temp Pulse Resp B/P (MAP) Pulse Ox O2 Delivery O2 Flow Rate FiO2 01/24/19 08:51 01/24/19 07:00 80 01/24/19 07:00 11 Room Air 01/24/19 06:00 97 01/24/19 00:24 97.0 General Appearance: Other (left ama before this physician assessed her) Hospital Course Was the Problem List Reviewed?: No left ama before this physician assessed her Labs (last 24 hrs) Laboratory Tests 01/24/19 03:09: White Blood Count 9.1, Red Blood Count 4.52, Hemoglobin 13.6, Hematocrit 40, Mean Corpuscular Volume 89, Mean Corpuscular Hemoglobin 30, Mean Corpuscular Hemoglobin Concent 34, Red Cell Distribution Width 14.0, Platelet Count 268, Mean Platelet Volume 10.7H, Neutrophils (%) (Auto) 62, Lymphocytes (%) (Auto) 32, Monocytes (%) (Auto) 3, Eosinophils (%) (Auto) 3, Basophils (%) (Auto) 0, Neutrophils # (Auto) 5.6, Lymphocytes # (Auto) 2.9, Monocytes # (Auto) 0.3, Eosinophils # (Auto) 0.2, Basophils # (Auto) 0.0, Sodium Level 139, Potassium Level 4.2, Chloride Level 111H, Carbon Dioxide Level 20L, Anion Gap 8, Blood Urea Nitrogen 6L, Creatinine 0.61, Estimat Glomerular Filtration Rate > 60, BUN/Creatinine Ratio 10, Glucose Level 103, Calcium Level 8.7, Phosphorus Level 3.3, Magnesium Level 1.9 Microbiology 01/23/19 MRSA Screen - Final, Complete MRSA not isolated Patient resulted labs reviewed. Discussion & Recommendations Discharge Planning: <30 minutes discharge planning Discharge Home Medications: Active Scripts Active Reported Amlodipine Besylate 10 Mg Tablet 10 Mg PO DAILY LAST FILLED #30 12-11-18 Gabapentin 300 Mg Capsule 300 Mg PO BID Lisinopril 20 Mg Tablet 20 Mg PO DAILY Alprazolam 1 Mg Tablet 1 Mg PO BID Cyclobenzaprine HCl 10 Mg Tablet 10 Mg PO BID PRN Duloxetine HCl 30 Mg Capsule.dr 30 Mg PO BID Quetiapine Fumarate 100 Mg Tablet 100 Mg PO HS LAST FILLED #30 12-12-18 Benadryl (Diphenhydramine HCl) 25 Mg Capsule 75 Mg PO HS PRN TAKES 3 (25MG) CAPSULES Proair Hfa (Albuterol Sulfate) 1 Puff Puff 2 Puff INH TID PRN Amitriptyline HCl 25 Mg Tablet 25 Mg PO HS Instructions to patient/family Please see electronic discharge instructions given to patient. Clinical Quality Measures DVT/VTE Risk/Contraindication: Risk Factor Score Per Nursin RFS Level Per Nursing on Admit: 3=High CIRO STEVENS DO Jan 24, 2019 11:52
== END 2019-01-24 08:34 | disposition left against medical advice (07) ==
LOC: EDUNIT# 21:40 → ER 21:41 → ICU 21:42 → UNDOADMIN 23:15 → ICU 23:15 → UNDODISIN 01-24 08:34
PROVIDERS: ADMIT Family Medicine; ATTEND Family Medicine
DX: F10.129 Alcohol abuse with intoxication, unspecified (principal); F19.10 Other psychoactive substance abuse, uncomplicated; F23 Brief psychotic disorder; I10 Essential (primary) hypertension; J44.9 Chronic obstructive pulmonary disease, unspecified; F17.210 Nicotine dependence, cigarettes, uncomplicated; G40.909 Epilepsy, unspecified, not intractable, without status epilepticus; F32.9 Major depressive disorder, single episode, unspecified; E66.01 Morbid (severe) obesity due to excess calories; Z68.43 Body mass index [BMI] 50.0-59.9, adult; Z86.711 Personal history of pulmonary embolism; Z53.21 Procedure and treatment not carried out due to patient leaving prior to being seen by health care provider
CPT/HCPCS: 36415; 51702; 80048; 80053; 80306; 80320; 80329; 81000; 82140; 82150; 82962; 83690; 83735; 84100; 84443; 85025; 85610; 85730; 87081; 93005; 94760; G0378

== ENCOUNTER 2019-05-06 10:24 | Emergency (ER) | payer MEDICAID ==
[~2019-05-06] VITALS: Ht 152.4 cm; Wt 106.8 kg
[~2019-05-06 10:24] MED LIST changes: +ALPR0.5T7 PO; +AMLO10TA7 PO; +CYAN-41 PO; -CYAN10006 PO; -DULO30CA48 PO; +DULO30CA49 PO; -DULO60CA58 PO; +DULO60CA59 PO; +GABA-488 PO; -TIZA4TAB3 PO; +TIZA4TAB4 PO
[2019-05-06] MEDS: IBUPROFEN 800 MG (MOTRIN) TAB PO STA (11:51)
[2019-05-06] MEDS: RT-ALBUTEROL/IPRATROPIUM 3 ML (DUONEB) VIAL INH ONE (12:02)
--- NOTE | 2019-05-06 12:09 | ED Cough/URI ---
General Chief Complaint: Cough/Cold/Flu Symptoms Stated Complaint: CHEST PAINS CANT BREATH HIGH FEVER Nursing Triage Note: AMB TO ROOM C/O COUGH, CONGESTION, FEVER FOR SEVERAL DAYS. ALSO REPORTS HAS STOPPED TAKING ALL HER MEDS. NOT TAKEN B/P MED FOR SEVERAL MONTHS Sepsis Screen: No Definite Risk History of Present Illness Date Seen by Provider: May 06, 2019 Time Seen by Provider: 11:10 Initial Comments 49-year-old female presents for cough and congestion. She had a fever up to 103 yesterday. She's been afebrile today she's had no Tylenol or ibuprofen for approximately 18 hours. Approximately 2 months ago she quit taking all of her medications. When her symptoms presented this week she began using her Proair inhaler approximately every 4-6 hours. Timing/Duration: week Severity/Quality: dry cough Prior Episodes/Possible Cause: occasional episodes Modifying Factors: Improves With Albuterol Inhaler, Improves With Rest Associated Symptoms: chest pain/soreness, cough, dizziness, headache, lightheadedness, nasal congestion, wheezing Allergies and Home Medications Allergies Coded Allergies: No Known Drug Allergies (Unverified , 04/03/18) Home Medications Albuterol Sulfate 1 Puff Puff, 2 PUFF INH TID PRN for SHORTNESS OF BREATH, (Reported) Alprazolam 1 Mg Tablet, 1 MG PO BID, (Reported) Amitriptyline HCl 25 Mg Tablet, 25 MG PO HS, (Reported) Amlodipine Besylate 10 Mg Tablet, 10 MG PO DAILY, (Reported) LAST FILLED #30 12-11-18 Cyclobenzaprine HCl 10 Mg Tablet, 10 MG PO BID PRN for MUSCLE SPASMS, (Reported) Diphenhydramine HCl 25 Mg Capsule, 75 MG PO HS PRN for SLEEP, (Reported) TAKES 3 (25MG) CAPSULES Duloxetine HCl 30 Mg Capsule.dr, 30 MG PO BID, (Reported) Gabapentin 300 Mg Capsule, 300 MG PO BID, (Reported) Lisinopril 20 Mg Tablet, 20 MG PO DAILY, (Reported) Prednisone 20 Mg Tab, 40 MG PO DAILY Prescribed by: JAMES DIA on 05/06/19 5688 Quetiapine Fumarate 100 Mg Tablet, 100 MG PO HS, (Reported) LAST FILLED #30 12-12-18 Patient Home Medication List Home Medication List Reviewed: Yes Review of Systems Review of Systems Constitutional: no symptoms reported, see HPI EENTM: see HPI, nose congestion; No ear pain, No epistaxis, No nose pain, No throat pain, No throat swelling Respiratory: see HPI, cough, wheezing Cardiovascular: no symptoms reported, see HPI Gastrointestinal: no symptoms reported, see HPI; No abdominal pain, No diarrhea, No nausea, No vomiting Psychiatric/Neurological: See HPI, Headache All Other Systems Reviewed Negative Unless Noted: Yes Past Iulivzz-Bsewer-Cnufeu Hx Past Med/Social Hx: Reviewed Nursing Past Med/Soc Hx Patient Social History Alcohol Use: Denies Use Number of Drinks Today: FF Alcohol Beverage of Choice: Vodka Recreational Drug Use: Yes Drug of Choice: MARIJUANA, METH, THC, PILLS--POLYSUBSTANCES-OPIATES/BENZO'S ESPECIALLY Smoking Status: Current Everyday Smoker Type Used: Cigarettes Former Smoker, Quit: December 24, 2016 2nd Hand Smoke Exposure: Yes Recent Foreign Travel: No Contact w/Someone Who Travel: No Recent Infectious Disease Expo: No Recent Hopitalizations: No Immunizations Up To Date Tetanus Booster (TDap): Unknown Date of Pneumonia Vaccine: Apr 26, 2015 Date of Influenza Vaccine: Jul 10, 2017 Seasonal Allergies Seasonal Allergies: No Past Medical History Surgeries: Yes Eye Surgery, Gallbladder, Hysterectomy, Orthopedic, Renal, Tubal Ligation Respiratory: Yes Pneumonia, Chronic Bronchitis, Pulmonary Embolism Currently Using CPAP: No Currently Using BIPAP: No Cardiac: Yes Hypertension Neurological: Yes Headaches /Migraines, Seizure Disorder 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 Disorders: No Female 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 Disorders: Denies 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 EXTENSIVE DENTAL CARIES/LEGALLY BLIND) Loss of Vision: Bilateral Cancer: No Psychosocial: Yes (POLYSUBSTANCE ABUSE, OVERDOSES ) Pseudo Seizures, Sleep Difficulties, Anxiety, Suicide Attempts, Depression Integumentary: No Blood Disorders: No Family Medical History Alcoholism 19 FATHER (grandfather) Alzheimer's disease 19 MOTHER (grandmother) Arthritis 19 FATHER Cardiovascular disease 19 FATHER 19 MOTHER Cataracts 19 MOTHER Coronary thrombosis 19 FATHER Dementia 19 MOTHER (grandparents) Diabetes mellitus 19 MOTHER Drug abuse 19 FATHER Glaucoma 19 FATHER (grandfather) Headache disorder 19 FATHER Hypercholesterolemia 19 FATHER Hypertension 19 FATHER Myocardial infarction 19 FATHER Parkinson's disease 19 MOTHER Prostate cancer 19 MOTHER (uncle brother of mother) Psychosocial problem 19 FATHER Respiratory disorder 19 FATHER (grandfather) Seizure disorder 19 MOTHER No Family History of: AIDS Abdominal aortic aneurysm [place]'s disease Aphasia Asthma Cancer of mouth Colon cancer Completed stroke Congenital disease Congenital heart disease Cystic fibrosis Deafness or hearing loss Dysphasia Fibrocystic disease of breast Gastroenteritis Infertility Kidney disease Neoplasm Severe allergy Thyroid disease Tuberculosis Visual disorder Physical Exam Vital Signs - First Documented 05/06/19 05/06/19 10:25 12:02 Temp 37.0 Pulse 84 Resp 18 B/P (MAP) 203/124 (150) Pulse Ox 98 O2 Delivery Room Air Capillary Refill : Less Than 3 Seconds Height: 5'0.00" Weight: 258lbs. 2.0oz. 117.934476cc; 45.00 BMI Method:Stated General Appearance: WD/WN, no apparent distress Eyes: Bilateral Eye Normal Inspection, Bilateral Eye PERRL, Bilateral Eye EOMI HEENT: PERRL/EOMI, normal ENT inspection, TMs normal, pharynx normal Neck: non-tender, full range of motion, supple, normal inspection Respiratory: chest non-tender, no respiratory distress, wheezing (bilateral upper and lower lobes) Cardiovascular: normal peripheral pulses, regular rate, rhythm Gastrointestinal: normal bowel sounds, non tender, soft, distended Extremities: normal range of motion, non-tender, normal inspection Neurologic/Psychiatric: no motor/sensory deficits, alert, normal mood/affect, oriented x 3 Skin: normal color, warm/dry Procedures/Interventions Date of ETT Placement: Aug 30, 2017 Time of ETT Placement: 2234 Suture Size: 4-0 Progress/Results/Core Measures Suspected Sepsis Recent Fever Within 48 Hours: Yes Infection Criteria Present: Suspected New Infection New/Unexplained Altered Menta: No Sepsis Screen: No Definite Risk SIRS Temperature: Pulse: 84 Respiratory Rate: 18 Blood Pressure 203 /124 Mean: 150 Results/Orders My Orders Orders - JAMES DIA Chest Pa/Lat (2 View) (05/06/19 11:26) Ibuprofen Tablet (Motrin Tablet) (05/06/19 11:26) Albuterol/Ipra Inhalation Soln (Duoneb I (05/06/19 11:30) Svn Small Volume Nebulizer (05/06/19 11:26) Medications Given in ED Current Medications Medications Dose Ordered Sig/Garry Route Start Time Stop Time Status Last Admin Dose Admin Albuterol/ Ipratropium 3 ml ONCE ONCE INH 05/06/19 11:30 05/06/19 11:31 DC 05/06/19 12:02 3 ML Vital Signs/I&O 05/06/19 05/06/19 05/06/19 10:25 12:02 12:53 Temp 37.0 Pulse 84 69 Resp 18 18 B/P (MAP) 203/124 (150) 166/119 Pulse Ox 98 97 O2 Delivery Room Air Room Air Room Air Capillary Refill : Less Than 3 Seconds Blood Pressure Mean: 150 Progress Note : Time: 11:10 Progress Note Patient seen and evaluated, chest x-ray, ibuprofen for myalgias and DuoNeb treatment. 1200 Patient reports some improvement in her symptoms. Temp 98.9 1240 discharge instructions and return precautions reviewed with her. All questions answered. Diagnostic Imaging Diagonstic Imaging: Xray Plain Films/CT/US/NM/MRI: chest Comments NAME: [facility] REC#: [id number] PT STATUS: REG ER : 1970 PHYSICIAN: JAMES DIA ADMIT DATE: 05/06/19/ER Draft Date of Exam:05/06/19 CHEST PA/LAT (2 VIEW) CLINICAL INDICATION: Patient with fever and chest pain. Patient having trouble breathing since Saturday. EXAM: Chest x-ray, PA and lateral views. COMPARISON: Chest x-ray dated 12/13/2018. FINDINGS: Lungs/pleura: There is interval development of a small area of consolidation in the retrosternal region which may represent atelectasis versus infiltrate. Otherwise, the lungs are clear and stable. There is no pneumothorax. There is no pleural effusion. Mediastinum: Unremarkable. Pulmonary vasculature: Unremarkable. Heart: Unremarkable. Bones/extrathoracic soft tissue: There are mildly hypertrophic degenerative osteophytes scattered throughout the thoracic spine. IMPRESSION: 1. There is interval development of a small area of consolidation in the retrosternal region which may represent atelectasis versus infiltrate. Follow up chest x-ray in 2 - 4 weeks is suggested to evaluate for interval resolution of this finding. 2. Otherwise, there is no radiographic evidence of acute cardiopulmonary process. Dictated on workstation # [id number] Reviewed: Reviewed by Me Departure Impression Primary Impression: Upper respiratory infection Qualified Codes: J06.9 - Acute upper respiratory infection, unspecified Additional Impression: Cough Disposition: HOME, SELF-CARE Condition: Improved Departure-Patient Inst. Decision time for Depature: 12:40 Referrals: HARVEY LINDSEY DO (PCP/Family) Primary Care Physician Patient Instructions: Viral Upper Respiratory Infection, Adult (DC) Add. Discharge Instructions: Continue to use your inhaler, 2 puffs every 4 hours. Take prednisone as directed. Follow-up with your primary care provider if symptoms are not improving or worsen. Follow-up with her a chest x-ray with your primary care provider in approximately 4 weeks. Resume taking your blood pressure medicine. Alternate between Tylenol 650 mg and ibuprofen 600 mg every 4 hours for pain or fever. Return to emergency department for new, urgent needs. All discharge instructions reviewed with patient and/or family. Voiced understanding. Scripts Prednisone (Prednisone) 20 Mg Tab 40 MG PO DAILY, #10 TAB 0 Refills Prov: JAMES DIA 05/06/19 JAMES DIA May 06, 2019 12:08
[2019-05-06] MEDS ORDERED: PRD20T PO (12:44)
[2019-05-06 12:53] VITALS: BP 166/119
== END 2019-05-06 12:51 | disposition home or self-care (01) ==
LOC: EDUNIT# 10:24 → ER 10:25
DX: J06.9 Acute upper respiratory infection, unspecified (principal); J42 Unspecified chronic bronchitis; I10 Essential (primary) hypertension; G43.909 Migraine, unspecified, not intractable, without status migrainosus; G40.909 Epilepsy, unspecified, not intractable, without status epilepticus; F41.9 Anxiety disorder, unspecified; F32.9 Major depressive disorder, single episode, unspecified; M79.7 Fibromyalgia; F17.210 Nicotine dependence, cigarettes, uncomplicated; Z87.440 Personal history of urinary (tract) infections; Z87.442 Personal history of urinary calculi; Z91.14 Patient's other noncompliance with medication regimen; Z86.711 Personal history of pulmonary embolism; Z90.710 Acquired absence of both cervix and uterus; Z98.51 Tubal ligation status; Z87.01 Personal history of pneumonia (recurrent); Z82.49 Family history of ischemic heart disease and other diseases of the circulatory system; Z80.42 Family history of malignant neoplasm of prostate
CPT/HCPCS: 71046; 94640

== ENCOUNTER 2019-05-15 08:08 | Emergency (ER) | payer MEDICAID | END 2019-05-15 11:05 | disposition home or self-care (01) | LOC: ER 08:08 ==

== ENCOUNTER 2019-11-18 14:26 | Emergency (ER) | payer MEDICAID ==
[~2019-11-18] VITALS: Ht 150 cm; Wt 108.0 kg
[~2019-11-18 14:26] MED LIST changes: -ACET-2469 PO; +ACET-2715 PO; +DOXY100T2 PO; +FAMO-119 PO; -LIDO15SO2 MM; +LIDO20SO23 MM; +QUET100T33 PO; -QUET100T69 PO; -TRAM50TA2; -TRAZ-190 PO; +TRAZ-227 PO; +TRM50T
[2019-11-18] MEDS ORDERED: NS IV 1000 ML 1,000 ML IV SCH (14:43)
[2019-11-18] MEDS ORDERED: RT-ALBUTEROL/IPRATROPIUM 3 ML (DUONEB) VIAL INH ONE (14:45)
[2019-11-18] MEDS ORDERED: ASPIRIN 81 MG CHEW (CHILDREN'S ASA) PO ONE (14:45)
--- NOTE | 2019-11-18 14:52 | ED Respiratory ---
General Chief Complaint: Cough/Cold/Flu Symptoms Stated Complaint: SOA Nursing Triage Note: Pt c/o cough, SOB and fever of 102 for two days. Pt c/o vomiting yesterday. Source: patient Exam Limitations: no limitations History of Present Illness Date Seen by Provider: Nov 18, 2019 Time Seen by Provider: 14:28 Initial Comments The patient presents to the ER by private conveyance with chief complaint of 2 days of progressively worsening shortness of breath cough wheezing and chest pain on breathing or coughing. She does not have a history of coronary disease but she did have some seemingly unprovoked pulmonary embolisms in the past. She says her pain woke her up from sleep this morning and she has not allergy related. She took some Tylenol earlier because she was having a fever. For the past 2 days she's had a fever Tmax of 102. She has some nausea yesterday but none today. She's having sweats. She has a paternal history of heart attack at age 44 and maternal history of stroke. She does not have diabetes, hyperlipidemia, hypothyroidism. She is a smoker about half a pack per day as well as she has hypertension on lisinopril. She says in the past she's been told she has COPD. She has an albuterol inhaler she uses this morning with good effect. She has not used it since then. Allergies and Home Medications Allergies Coded Allergies: No Known Drug Allergies (Unverified , 04/03/18) Home Medications Albuterol Sulfate 1 Puff Puff, 2 PUFF INH TID PRN for SHORTNESS OF BREATH, (Reported) Alprazolam 1 Mg Tablet, 1 MG PO BID, (Reported) Amitriptyline HCl 25 Mg Tablet, 25 MG PO HS, (Reported) Amlodipine Besylate 10 Mg Tablet, 10 MG PO DAILY, (Reported) LAST FILLED #30 12-11-18 Cyclobenzaprine HCl 10 Mg Tablet, 10 MG PO BID PRN for MUSCLE SPASMS, (Reported) Diphenhydramine HCl 25 Mg Capsule, 75 MG PO HS PRN for SLEEP, (Reported) TAKES 3 (25MG) CAPSULES Doxycycline Hyclate 100 Mg Tablet, 100 MG PO BID Prescribed by: DOMINGO NOBLES on 05/15/19 1102 Duloxetine HCl 30 Mg Capsule.dr, 30 MG PO BID, (Reported) Famotidine 20 Mg Tablet, 20 MG PO BID Prescribed by: DOMINGO NOBLES on 05/15/19 1101 Gabapentin 300 Mg Capsule, 300 MG PO BID, (Reported) Lisinopril 20 Mg Tablet, 20 MG PO DAILY, (Reported) Prednisone 20 Mg Tab, 40 MG PO DAILY Prescribed by: JAMES DIA on 05/06/19 1244 Prednisone 20 Mg Tab, 40 MG PO DAILY Prescribed by: DOMINGO NOBLES on 05/15/19 1102 Quetiapine Fumarate 100 Mg Tablet, 100 MG PO HS, (Reported) LAST FILLED #30 12-12-18 Patient Home Medication List Home Medication List Reviewed: Yes Review of Systems Review of Systems Constitutional: No chills, No diaphoresis EENTM: No ear discharge, No ear pain Respiratory: cough; No phlegm; short of breath, wheezing Cardiovascular: see HPI, chest pain; No edema, No Hx of Intervention, No palpitations, No syncope, No vascular heart diseas Gastrointestinal: see HPI; No abdominal pain, No constipation, No diarrhea; nausea (yesterday); No vomiting Genitourinary: No discharge, No dysuria Musculoskeletal: No back pain, No joint pain Psychiatric/Neurological: Anxiety; Denies Depressed All Other Systems Reviewed Negative Unless Noted: Yes Past [id number]-[id number]-Bqypcx Hx Patient Social History Alcohol Use: Denies Use Alcohol Beverage of Choice: Vodka Drug of Choice: MARIJUANA, METH, THC, PILLS--POLYSUBSTANCES-OPIATES/BENZO'S ESPECIALLY Smoking Status: Current Everyday Smoker Type Used: Cigarettes Former Smoker, Quit: December 24, 2016 2nd Hand Smoke Exposure: Yes Recent Foreign Travel: No Contact w/Someone Who Travel: No Recent Infectious Disease Expo: No Recent Hopitalizations: No Immunizations Up To Date Tetanus Booster (TDap): Unknown Date of Pneumonia Vaccine: Apr 26, 2015 Date of Influenza Vaccine: Jul 10, 2017 Seasonal Allergies Seasonal Allergies: No Past Medical History Surgeries: Yes Eye Surgery, Gallbladder, Hysterectomy, Orthopedic, Renal, Tubal Ligation Respiratory: Yes Pneumonia, Chronic Bronchitis, Pulmonary Embolism Currently Using CPAP: No Currently Using BIPAP: No Cardiac: Yes Hypertension Neurological: Yes ("PSEUDO SEIZURES") Headaches /Migraines, Seizure Disorder 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 Disorders: No Female 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 Disorders: Denies [employer] History: Hysterectomy Sexually Transmitted Disease: No HIV/AIDS: No Genitourinary: Yes (URETERAL STENT) Kidney Infection, Kidney Stones, UTI-Chronic Gastrointestinal: Yes (S/P NATHALIE) Gall Bladder Disease Musculoskeletal: Yes (MOST ARE SELF-REPORTED, WITH [place] MEDICAL DOCUMENTATION OF THESE CONDITIONS) Degenerate Disk Disease, Arthritis, Fibromyalgia, Back Injury, Scoliosis, Chronic Back Pain Endocrine: Yes (MORBID OBESITY) HEENT: Yes (TMJ PROBLEMS, PER PT. EXTENSIVE DENTAL CARIES/LEGALLY BLIND) Loss of Vision: Bilateral Cancer: No Psychosocial: Yes (POLYSUBSTANCE ABUSE, OVERDOSES ) Pseudo Seizures, Sleep Difficulties, Anxiety, Suicide Attempts, Depression Integumentary: No Blood Disorders: No Family Medical History Alcoholism 19 FATHER (grandfather) Alzheimer's disease 19 MOTHER (grandmother) Arthritis 19 FATHER Cardiovascular disease 19 FATHER 19 MOTHER Cataracts 19 MOTHER Coronary thrombosis 19 FATHER Dementia 19 MOTHER (grandparents) Diabetes mellitus 19 MOTHER Drug abuse 19 FATHER Glaucoma 19 FATHER (grandfather) Headache disorder 19 FATHER Hypercholesterolemia 19 FATHER Hypertension 19 FATHER Myocardial infarction 19 FATHER Parkinson's disease 19 MOTHER Prostate cancer 19 MOTHER (uncle brother of mother) Psychosocial problem 19 FATHER Respiratory disorder 19 FATHER (grandfather) Seizure disorder 19 MOTHER No Family History of: AIDS Abdominal aortic aneurysm [place]'s disease Aphasia Asthma Cancer of mouth Colon cancer Completed stroke Congenital disease Congenital heart disease Cystic fibrosis Deafness or hearing loss Dysphasia Fibrocystic disease of breast Gastroenteritis Infertility Kidney disease Neoplasm Severe allergy Thyroid disease Tuberculosis Visual disorder Physical Exam Vital Signs - First Documented Capillary Refill : Less Than 3 Seconds Height: 5'0.00" Weight: 258lbs. 2.0oz. [id number]; 48.00 BMI Method:Stated General Appearance: mild distress, obese Eyes: Bilateral Eye Normal Inspection, Bilateral Eye PERRL, Bilateral Eye EOMI HEENT: PERRL/EOMI, normal ENT inspection, TMs normal, pharyngeal erythema; No tonsillar exudate Neck: non-tender, full range of motion, supple, normal inspection Respiratory: no respiratory distress, no accessory muscle use, wheezing Cardiovascular: normal peripheral pulses, regular rate, rhythm, no edema Neurologic/Psychiatric: no motor/sensory deficits, alert, normal mood/affect, oriented x 3 Skin: normal color, warm/dry Procedures/Interventions Date of ETT Placement: Aug 30, 2017 Time of ETT Placement: 2235 Suture Size: 4-0 Progress/Results/Core Measures Suspected Sepsis Recent Fever Within 48 Hours: Yes Infection Criteria Present: None New/Unexplained Altered Menta: No Sepsis Screen: No Definite Risk SIRS Temperature: Pulse: 79 Respiratory Rate: 29 Laboratory Tests 11/18/19 14:50: White Blood Count 8.2 Blood Pressure 146 /129 Mean: 135 Laboratory Tests 11/18/19 14:50: Creatinine 0.69, INR Comment 0.9, Platelet Count 202, Total Bilirubin 0.3 Results/Orders Lab Results Laboratory Tests Test 11/18/19 14:50 11/18/19 15:19 11/18/19 16:12 11/18/19 16:27 Range/Units White Blood Count 8.2 4.3-11.0 10^3/uL Red Blood Count 5.35 4.35-5.85 10^6/uL Hemoglobin 15.7 11.5-16.0 G/DL Hematocrit 46 35-52 % Mean Corpuscular Volume 87 80-99 FL Mean Corpuscular Hemoglobin 29 25-34 PG Mean Corpuscular Hemoglobin Concent 34 32-36 G/DL Red Cell Distribution Width 14.3 10.0-14.5 % Platelet Count 202 130-400 10^3/uL Mean Platelet Volume 10.9 H 7.4-10.4 FL Neutrophils (%) (Auto) 75 42-75 % Lymphocytes (%) (Auto) 16 12-44 % Monocytes (%) (Auto) 7 0-12 % Eosinophils (%) (Auto) 1 0-10 % Basophils (%) (Auto) 0 0-10 % Neutrophils # (Auto) 6.2 1.8-7.8 X 10^3 Lymphocytes # (Auto) 1.3 1.0-4.0 X 10^3 Monocytes # (Auto) 0.6 0.0-1.0 X 10^3 Eosinophils # (Auto) 0.1 0.0-0.3 10^3/uL Basophils # (Auto) 0.0 0.0-0.1 10^3/uL Prothrombin Time 12.6 12.2-14.7 SEC INR Comment 0.9 0.8-1.4 Activated Partial Thromboplast Time 37 H 24-35 SEC D-Dimer 0.47 0.00-0.49 UG/ML Sodium Level 139 135-145 MMOL/L Potassium Level 3.7 3.6-5.0 MMOL/L Chloride Level 103 98-107 MMOL/L Carbon Dioxide Level 24 21-32 MMOL/L Anion Gap 12 5-14 MMOL/L Blood Urea Nitrogen 12 7-18 MG/DL Creatinine 0.69 0.60-1.30 MG/DL Estimat Glomerular Filtration Rate > 60 BUN/Creatinine Ratio 17 Glucose Level 88 70-105 MG/DL Calcium Level 9.3 8.5-10.1 MG/DL Corrected Calcium 9.2 8.5-10.1 MG/DL Magnesium Level 1.7 1.6-2.4 MG/DL Total Bilirubin 0.3 0.1-1.0 MG/DL Aspartate Amino Transf (AST/SGOT) 30 5-34 U/L Alanine Aminotransferase (ALT/SGPT) 23 0-55 U/L Alkaline Phosphatase 82 40-136 U/L Myoglobin 20.3 10.0-92.0 NG/ML Troponin I < 0.028 <0.028 NG/ML Total Protein 7.9 6.4-8.2 GM/DL Albumin 4.1 3.2-4.5 GM/DL Blood Gas Puncture Site LR RR Blood Gas Patient Temperature 37.1 38.1 Arterial Blood pH 7.36 L 7.38 7.37-7.43 Arterial Blood Partial Pressure CO2 51 H 41 35-45 MMHG Arterial Blood Partial Pressure O2 21 *L 74 L 79-93 MMHG Arterial Blood HCO3 28 H 23 23-27 MMOL/L Arterial Blood Total CO2 29.6 24.4 21.0-31.0 MMOL/L Arterial Blood Oxygen Saturation 24 L 93 L 94-100 % Arterial Blood Base Excess 3.0 H -1.0 -2.5-2.5 MMOL/L Don Test YES-POS YES-POS Blood Gas Ventilator Setting NO NO Blood Gas Inspired Oxygen RA RA Micro Results Microbiology 11/18/19 Influenza Types A,B Antigen (VIDHI) - Final, Complete My Orders Orders - EL BYRNES Cbc With Automated Diff (11/18/19 14:43) Magnesium (11/18/19 14:43) Chest 1 View, Ap/Pa Only (11/18/19 14:43) Ekg Tracing (11/18/19 14:43) Comprehensive Metabolic Panel (11/18/19 14:43) Myoglobin Serum (11/18/19 14:43) Protime With Inr (11/18/19 14:43) Partial Thromboplastin Time (11/18/19 14:43) O2 (11/18/19 14:43) Monitor-Rhythm Ecg Trace Only (11/18/19 14:43) Lipid Panel (11/19/19 06:00) Ed Iv/Invasive Line Start (11/18/19 14:43) Fibrin Degradation Products (11/18/19 14:43) Troponin I (11/18/19 14:43) Aspirin Chewable Tablet (Baby Aspirin Ch (11/18/19 14:45) Albuterol/Ipra Inhalation Soln (Duoneb I (11/18/19 14:45) Svn Small Volume Nebulizer (11/18/19 14:43) Ed Iv/Invasive Line Start (11/18/19 14:43) Ns Iv 1000 Ml (Sodium Chloride 0.9%) (11/18/19 14:43) Ondansetron Injection (Zofran Injectio (11/18/19 15:30) Arterial Blood Gas (11/18/19 15:22) Influenza A And B Antigens (11/18/19 15:46) Arterial Blood Gas (11/18/19 16:13) Ketorolac Injection (Toradol Injection) (11/18/19 16:30) Drug Screen Stat (Urine) (11/18/19 16:26) Arterial Blood Gas (11/18/19 16:35) Arterial Blood Draw (11/18/19 ) Arterial Blood Gas (11/18/19 16:39) Medications Given in ED Current Medications Medications Dose Ordered Sig/Garry Route Start Time Stop Time Status Last Admin Dose Admin Albuterol/ Ipratropium 3 ml ONCE ONCE INH 11/18/19 14:45 11/18/19 14:47 DC 11/18/19 15:28 3 ML Aspirin 324 mg ONCE ONCE PO 11/18/19 14:45 11/18/19 14:47 DC 11/18/19 14:59 324 MG Ondansetron HCl 4 mg ONCE ONCE IVP 11/18/19 15:30 11/18/19 15:31 DC 11/18/19 15:23 4 MG Vital Signs/I&O 11/18/19 11/18/19 14:30 14:30 Pulse 79 Resp 29 B/P (MAP) 146/129 (135) Pulse Ox 99 O2 Delivery Room Air Room Air Capillary Refill : Less Than 3 Seconds Blood Pressure Mean: 135 Progress Note #1: Time: 14:53 Progress Note The patient has some wheezing so we will give her a DuoNeb. Because of her history of fever and dry nonproductive cough with rest or symptoms were going to get an influenza swab and an ABG. At this time she has aseptic vital signs with good oxygenation. She is probably not in need of inpatient management. We'll get a chest x-ray and some basic labs to help support this. Because of her history of pulmonary embolisms we'll start with a d-dimer and because of her family history of heart disease and her own hypertension and obesity we will get a troponin and give her aspirin to chew up and swallow. If the breathing treatment does not improve her pleurisy and the troponin is negative then we can try an NSAID. If her initial troponin was negative she had 3 points on the heart score and his troponin was obtained greater than 6 hours after her chest pain started. Progress Note #2: Time: 16:03 Progress Note Patient's venous blood gas is not very useful. We will have RT attempt to get an arterial blood gas. Patient doesn't feel like she is improved much and on auscultation her lungs still have some end expiratory wheezing albeit mild. Oxygen sats are still in the upper 90s on room air. Progress Note #3: Time: 16:47 Progress Note We'll allow the patient to go home since she has a otherwise unremarkable ABG with just mild hypoxia. She has an albuterol inhaler at home and recurrent encourage her to start using [id number]. We've also given her good return precautions. Because of her faint atelectasis on chest x-ray and worrisome history of possible COPD we'll going to obtain a swab for Covid19. We have put the patient on official quarantine at home. ECG Initial ECG Impression Date: Nov 18, 2019 Initial ECG Impression Time: 15:10 Initial ECG Rate: 67 Initial ECG Rhythm: Normal Sinus Initial ECG Intervals: Normal Initial ECG Impression: Normal Comment Normal sinus rhythm without clinically relevant ST elevation or depression. Diagnostic Imaging Diagonstic Imaging: Xray Plain Films/CT/US/NM/MRI: chest (1v) Comments No acute cardiopulmonary processes noted. NAME: [facility] REC#: [id number] PT STATUS: REG ER : 1970 PHYSICIAN: EL BYRNES MD ADMIT DATE: 11/18/19/ER Draft Date of Exam:11/18/19 CHEST 1 VIEW, AP/PA ONLY INDICATION: Cough, dyspnea, and fever. COMPARISON: 10/04/2019. FINDINGS: The heart size and pulmonary vascularity are within normal limits. There is no pneumothorax or focal consolidation. Slight increased density in the right infrahilar region may represent mild atelectasis or pneumonitis. There is no evidence of pleural fluid. IMPRESSION: Mild right infrahilar atelectasis and/or pneumonitis without consolidation identified. Dictated on workstation # [id number] Dict: 11/18/19 1633 Trans: 11/18/19 1638 [id number] Interpreted by: EDGARDO WANG MD Electronically signed by: Reviewed: Reviewed by Me Departure Impression Primary Impression: Bronchitis Additional Impression: Pleurisy Disposition: 01 HOME, SELF-CARE Condition: Stable Departure-Patient Inst. Decision time for Depature: 16:50 Referrals: HARVEY LINDSEY DO (PCP/Family) Primary Care Physician Patient Instructions: Acute Bronchitis, COVID19, Pleuritic Chest Pain (DC) Add. Discharge Instructions: You're officially on quarantine in accordance with CDC guidelines. You need to stay in your house and have other people bring any items that you need to you. You can be off quarantine when cleared by DrBenito or 7 days after your symptoms start and at least 72 hours after all of your symptoms are gone. If you have fever or chills you may use Tylenol 650 mg every 6 hours. You may vapor rubs such as Vicks or Mentholatum for nasal congestion. Humidifiers may be helpful. Get plenty of sleep and drink lots of fluids. Tessalon Perles 1 capsule every 6 hours as needed for cough. Start using your albuterol inhaler 2 puffs every 6 hours with a spacer [id number] for the next or 2. You may use your albuterol inhaler 2 puffs every 2 hours if you're having wheezing or coughing fits. If you're having severe shortness of breath, chest pain or other worrisome symptoms such as you cannot get enough to drink then you need to return to the ER. If you have questions you may call the health department or your primary care doctor's office. All discharge instructions reviewed with patient and/or family. Voiced understanding. Scripts Benzonatate (TESSALON PERLES) 100 Mg Capsule 100 MG PO Q6H PRN for COUGH, #30 CAP 0 Refills Prov: EL BYRNES 11/18/19 Albuterol Sulfate (PROAIR HFA) 1 Puff Puff 2 PUFF IH Q4H PRN for WHEEZING, #1 EA 0 Refills 1 PUFF = 90 MCG Prov: EL BYRNES 11/18/19 Work/School Note: Work Release Form Date Seen in the Emergency Department: Nov 18, 2019 Return to Work: Nov 30, 2019 EL BYRNES Nov 18, 2019 14:51
[2019-11-18 15:03] LABS: BASOPHILS % (AUTO) 0 % (0-10); EOSINOPHILS # (AUTO) 0.1 10^3/uL (0.0-0.3); EOSINOPHILS % (AUTO) 1 % (0-10); HEMATOCRIT 46 % (35-52); HEMOGLOBIN 15.7 G/DL (11.5-16.0); LYMPHOCYTES # (AUTO) 1.3 X 10^3 (1.0-4.0); LYMPHOCYTES % (AUTO) 16 % (12-44); MEAN CORPUSCULAR HEMOGLOBIN 29 PG (25-34); MEAN CORPUSCULAR HGB CONC 34 G/DL (32-36); MEAN CORPUSCULAR VOLUME 87 FL (80-99); MEAN PLATELET VOLUME 10.9 FL (7.4-10.4); MONOCYTES # (AUTO) 0.6 X 10^3 (0.0-1.0); MONOCYTES % (AUTO) 7 % (0-12); NEUTROPHILS # (AUTO) 6.2 X 10^3 (1.8-7.8); NEUTROPHILS % (AUTO) 75 % (42-75); PLATELET COUNT 202 10^3/uL (130-400); RED CELL DISTRIBUTION WIDTH 14.3 % (10.0-14.5); WHITE BLOOD COUNT 8.2 10^3/uL (4.3-11.0)
[2019-11-18 15:15] LABS: INR 0.9 (0.8-1.4); PROTHROMBIN TIME PATIENT 12.6 SEC (12.2-14.7)
[2019-11-18 15:23] LABS: ALANINE AMINOTRANSFERASE 23 U/L (0-55); ALBUMIN 4.1 GM/DL (3.2-4.5); ALKALINE PHOSPHATASE 82 U/L (40-136); BILIRUBIN,TOTAL 0.3 MG/DL (0.1-1.0); BUN/CREATININE RATIO 17; CALCIUM 9.3 MG/DL (8.5-10.1); CARBON DIOXIDE 24 MMOL/L (21-32); CHLORIDE 103 MMOL/L (98-107); CREATININE SERUM 0.69 MG/DL (0.60-1.30); GFR ESTIMATED > 60; GLUCOSE 88 MG/DL (70-105); MAGNESIUM 1.7 MG/DL (1.6-2.4); POTASSIUM 3.7 MMOL/L (3.6-5.0); SODIUM 139 MMOL/L (135-145); TOTAL PROTEIN 7.9 GM/DL (6.4-8.2)
[2019-11-18 15:28] LABS: ABG OXYGEN SATURATION 24 % (94-100); ABG PCO2 51 MMHG (35-45); ABG PH 7.36 (7.37-7.43); ABG TCO2 29.6 MMOL/L (21.0-31.0)
[2019-11-18 15:30] LABS: ALLENS TEST YES-POS; INSPIRED O2 RA; PATIENT TEMP 37.1; VENTILATOR NO
[2019-11-18] MEDS ORDERED: ONDANSETRON 4 MG/2 ML (SDV) Z0FRAN IVP ONE (15:30)
[2019-11-18 15:32] LABS: ABG PO2 21 MMHG (79-93)
[2019-11-18] MEDS ORDERED: KETOROLAC 30 MG/ML VIAL IVP ONE (16:30)
--- NOTE | 2019-11-18 16:38 | Diagnostic Imaging Report ---
INDICATION: Cough, dyspnea, and fever. COMPARISON: 10/04/2019. FINDINGS: The heart size and pulmonary vascularity are within normal limits. There is no pneumothorax or focal consolidation. Slight increased density in the right infrahilar region may represent mild atelectasis or pneumonitis. There is no evidence of pleural fluid. IMPRESSION: Mild right infrahilar atelectasis and/or pneumonitis without consolidation identified. Dictated by: Dictated on workstation # [id number]
--- NOTE | 2019-11-18 16:40 | NUR ---
Temp 100.7 at this time.
[2019-11-18 16:42] LABS: ABG OXYGEN SATURATION 93 % (94-100); ABG PCO2 41 MMHG (35-45); ABG PH 7.38 (7.37-7.43); ABG PO2 74 MMHG (79-93); ABG TCO2 24.4 MMOL/L (21.0-31.0)
[2019-11-18 16:42] LABS: AMPHETAMINE SCREEN, URINE NEGATIVE (NEGATIVE); BARBITURATE SCREEN URINE NEGATIVE (NEGATIVE); BENZODIAZEPINES SCREEN URINE POSITIVE (NEGATIVE); CANNABINOID SCREEN, URINE POSITIVE (NEGATIVE); COCAINE SCREEN URINE NEGATIVE (NEGATIVE); METHADONE STAT NEGATIVE (NEGATIVE); METHAMPHETAMINE SCREEN URINE S NEGATIVE (NEGATIVE); OPIATE SCREEN URINE NEGATIVE (NEGATIVE); OXYCODONE STAT NEGATIVE (NEGATIVE); PROPOXYPHENE STAT NEGATIVE (NEGATIVE); TRICYCLIC ANTIDEPRESSANTS SCRE POSITIVE (NEGATIVE)
[2019-11-18 16:43] LABS: ALLENS TEST YES-POS; INSPIRED O2 RA; PATIENT TEMP 38.1; VENTILATOR NO
[2019-11-18] MEDS ORDERED: BENZ100C18 PO (17:00)
[2019-11-18] MEDS ORDERED: RT-ALBUINH IH (17:00)
[2019-11-18 17:39] VITALS: BP 135/124
== END 2019-11-18 17:39 | disposition home or self-care (01) ==
LOC: EDUNIT# 14:26 → ER 14:28
DX: J40 Bronchitis, not specified as acute or chronic (principal); R09.1 Pleurisy; I10 Essential (primary) hypertension; F17.210 Nicotine dependence, cigarettes, uncomplicated; Z79.899 Other long term (current) drug therapy; Z86.711 Personal history of pulmonary embolism; F41.9 Anxiety disorder, unspecified; F32.9 Major depressive disorder, single episode, unspecified
CPT/HCPCS: 36415; 36600; 71045; 80053; 80306; 82805; 83735; 83874; 84484; 85025; 85379; 85610; 85730; 87635; 87804; 93005; 93041

== ENCOUNTER 2019-11-20 05:47 | Emergency (ER) | payer MEDICAID ==
[2019-11-20] MEDS ORDERED: RT-ALBUTEROL/IPRATROPIUM 3 ML (DUONEB) VIAL INH ONE ×2 (06:00→08:00)
[2019-11-20] MEDS ORDERED: methylPREDNISolone 125 MG (Solu-MEDROL) VIAL IVP ONE (06:15)
[2019-11-20 06:16] LABS: BILIRUBIN,URINE 1+ (NEGATIVE); CLARITY,URINE CLEAR; COLOR,URINE YELLOW; GLUCOSE, URINE (UA) NEGATIVE (NEGATIVE); KETONES,URINE 2+ (NEGATIVE); LEUKOCYTE ESTERASE ,URINE NEGATIVE (NEGATIVE); NITRITE,URINE NEGATIVE (NEGATIVE); PROTEIN,URINE 2+ (NEGATIVE)
[2019-11-20] MEDS ORDERED: fentaNYL INJECTION 100 MCG/2 ML AMP IVP STA (06:33)
[2019-11-20] MEDS ORDERED: LACTATED RINGERS 1,000 ML IV ONE (06:33)
--- NOTE | 2019-11-20 06:34 | Diagnostic Imaging Report ---
INDICATION: Cough, fever and congestion. Comparison made with prior examination 11/18/2019. FINDINGS: There is cardiomegaly. There is some venous congestion. There is no pleural effusion or pneumothorax. Mediastinum is unremarkable. IMPRESSION: Cardiomegaly and mild central pulmonary venous congestion. Dictated by: Dictated on workstation # [id number]
[2019-11-20 06:45] LABS: AMORPHOUS SEDIMENT,UR FEW AMOR URATES /LPF; BACTERIA,URINE TRACE /HPF; RBC,URINE RARE /HPF
[2019-11-20] MEDS ORDERED: PROMETHAZINE/ CODEINE SYRUP 5 ML UDC PO ONE (06:45)
[2019-11-20 06:50] LABS: BASOPHILS % (AUTO) 0 % (0-10); EOSINOPHILS % (AUTO) 0 % (0-10); HEMATOCRIT 46 % (35-52); HEMOGLOBIN 15.3 G/DL (11.5-16.0); LYMPHOCYTES # (AUTO) 1.3 X 10^3 (1.0-4.0); LYMPHOCYTES % (AUTO) 13 % (12-44); MEAN CORPUSCULAR HEMOGLOBIN 29 PG (25-34); MEAN CORPUSCULAR HGB CONC 33 G/DL (32-36); MEAN CORPUSCULAR VOLUME 87 FL (80-99); MEAN PLATELET VOLUME 11.4 FL (7.4-10.4); MONOCYTES # (AUTO) 0.4 X 10^3 (0.0-1.0); MONOCYTES % (AUTO) 4 % (0-12); NEUTROPHILS # (AUTO) 7.9 X 10^3 (1.8-7.8); NEUTROPHILS % (AUTO) 83 % (42-75); PLATELET COUNT 228 10^3/uL (130-400); RED CELL DISTRIBUTION WIDTH 14.9 % (10.0-14.5); WHITE BLOOD COUNT 9.5 10^3/uL (4.3-11.0)
[2019-11-20 06:57] LABS: PROTHROMBIN TIME PATIENT 13.6 SEC (12.2-14.7)
--- NOTE | 2019-11-20 06:57 | ED General ---
General Chief Complaint: Cough/Cold/Flu Symptoms Stated Complaint: SOA Source of Information: Patient Exam Limitations: No Limitations History of Present Illness Date Seen by Provider: Nov 20, 2019 Time Seen by Provider: 06:10 Initial Comments Here with report of increasing cough and shortness of breath as well as right- sided back pain. She is concerned that she has pneumonia. Seen 2 days ago and found to have bronchitis. Had an evaluation for coronavirus via PCR swab and that is subsequently negative. Denies nausea, vomiting, diarrhea or dysuria. States that she is urinating very little and it is dark. Reports fever and chills. Very anxious currently. Her main complaint is the pain associated with cough and shortness of breath. She states that she feels like when she has pneumonia. Reports symptoms currently are so bad that she has not been unable to smoke for the last 5 days Timing/Duration: 1 Week, Getting Worse Severity: Moderate Associated Systoms: Cough, Fever/Chills; No Nausea/Vomiting; Shortness of Air; No Weakness Allergies and Home Medications Allergies Coded Allergies: No Known Drug Allergies (Unverified , 04/03/18) Home Medications Albuterol Sulfate 1 Puff Puff, 2 PUFF INH TID PRN for SHORTNESS OF BREATH, (Reported) Albuterol Sulfate 1 Puff Puff, 2 PUFF IH Q4H PRN for WHEEZING 1 PUFF = 90 MCG Prescribed by: EL BYRNES on 11/18/19 1700 Albuterol Sulfate 2.5 Mg/3 Ml Vial.neb, 2.5 MG INH Q4H PRN for WHEEZING Prescribed by: DOMINGO NOBLES on 11/20/19 0832 Alprazolam 1 Mg Tablet, 1 MG PO BID, (Reported) Amitriptyline HCl 25 Mg Tablet, 25 MG PO HS, (Reported) Amlodipine Besylate 10 Mg Tablet, 10 MG PO DAILY, (Reported) LAST FILLED #30 12-11-18 Benzonatate 100 Mg Capsule, 100 MG PO Q6H PRN for COUGH Prescribed by: EL BYRNES on 11/18/19 1700 Cefdinir 300 Mg Capsule, 300 MG PO BID Prescribed by: DOMINGO NOBLES on 11/20/19 0832 Cyclobenzaprine HCl 10 Mg Tablet, 10 MG PO BID PRN for MUSCLE SPASMS, (Reported) Diphenhydramine HCl 25 Mg Capsule, 75 MG PO HS PRN for SLEEP, (Reported) TAKES 3 (25MG) CAPSULES Doxycycline Hyclate 100 Mg Tablet, 100 MG PO BID Prescribed by: DOMINGO NOBLES on 05/15/19 110 Duloxetine HCl 30 Mg Capsule.dr, 30 MG PO BID, (Reported) Famotidine 20 Mg Tablet, 20 MG PO BID Prescribed by: DOMINGO NOBLES on 05/15/19 1101 Gabapentin 300 Mg Capsule, 300 MG PO BID, (Reported) Lisinopril 20 Mg Tablet, 20 MG PO DAILY, (Reported) Prednisone 20 Mg Tab, 40 MG PO DAILY Prescribed by: JAMES DIA on 05/06/19 1244 Prednisone 20 Mg Tab, 40 MG PO DAILY Prescribed by: DOMINGO NOBLES on 05/15/19 1102 Prednisone 20 Mg Tab, 40 MG PO DAILY Prescribed by: DOMINGO NOBLES on 11/20/19 0832 Promethazine HCl/Codeine 5 Ml Syrup, 5 ML PO Q6H PRN for COUGH Prescribed by: DOMINGO NOBLES on 11/20/19 0833 Quetiapine Fumarate 100 Mg Tablet, 100 MG PO HS, (Reported) LAST FILLED #30 12-12-18 Patient Home Medication List Home Medication List Reviewed: Yes Review of Systems Review of Systems Constitutional: chills, fever EENTM: No nose congestion, No throat pain Respiratory: cough, short of breath, wheezing Cardiovascular: No chest pain, No edema, No palpitations Gastrointestinal: No abdominal pain, No nausea, No vomiting Genitourinary: see HPI, decreased output; No pain Musculoskeletal: back pain, muscle pain Skin: No change in color, No rash Psychiatric/Neurological: No Symptoms Reported All Other Systems Reviewed Negative Unless Noted: Yes Past Oqwqcnn-Jmmena-Lcprcm Hx Past Med/Social Hx: Reviewed Nursing Past Med/Soc Hx Patient Social History Alcohol Use: Denies Use Alcohol Beverage of Choice: Vodka Recreational Drug Use: No Drug of Choice: 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 , METH, THC, PILLS--POLYSUBSTANCES-OPIATES/BENZO'S ESPECIALLY Smoking Status: Current Everyday Smoker Type Used: Cigarettes Former Smoker, Quit: December 24, 2016 2nd Hand Smoke Exposure: Yes Recent Hopitalizations: No Immunizations Up To Date Tetanus Booster (TDap): Unknown Date of Pneumonia Vaccine: Apr 26, 2015 Date of Influenza Vaccine: Jul 10, 2017 Seasonal Allergies Seasonal Allergies: No Past Medical History Surgeries: Yes Eye Surgery, Gallbladder, Hysterectomy, Orthopedic, Renal, Tubal Ligation Respiratory: Yes Pneumonia, Chronic Bronchitis, Pulmonary Embolism Currently Using CPAP: No Currently Using BIPAP: No Cardiac: Yes Hypertension Neurological: Yes ("PSEUDO SEIZURES") Headaches /Migraines, Seizure Disorder 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 Disorders: No Female 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 Disorders: Denies [employer] History: Hysterectomy Sexually Transmitted Disease: No HIV/AIDS: No Genitourinary: Yes (URETERAL STENT) Kidney Infection, Kidney Stones, UTI-Chronic Gastrointestinal: Yes (S/P NATHALIE) Gall Bladder Disease Musculoskeletal: Yes (MOST ARE SELF-REPORTED, WITH [place] MEDICAL DOCUMENTATION OF THESE CONDITIONS) Degenerate Disk Disease, Arthritis, Fibromyalgia, Back Injury, Scoliosis, Chronic Back Pain Endocrine: Yes (MORBID OBESITY) HEENT: Yes (TMJ PROBLEMS, PER PT. EXTENSIVE DENTAL CARIES/LEGALLY BLIND) Loss of Vision: Bilateral Cancer: No Psychosocial: Yes (POLYSUBSTANCE ABUSE, OVERDOSES ) Pseudo Seizures, Sleep Difficulties, Anxiety, Suicide Attempts, Depression Integumentary: No Blood Disorders: No Family Medical History Reviewed Nursing Family Hx Alcoholism 19 FATHER (grandfather) Alzheimer's disease 19 MOTHER (grandmother) Arthritis 19 FATHER Cardiovascular disease 19 FATHER 19 MOTHER Cataracts 19 MOTHER Coronary thrombosis 19 FATHER Dementia 19 MOTHER (grandparents) Diabetes mellitus 19 MOTHER Drug abuse 19 FATHER Glaucoma 19 FATHER (grandfather) Headache disorder 19 FATHER Hypercholesterolemia 19 FATHER Hypertension 19 FATHER Myocardial infarction 19 FATHER Parkinson's disease 19 MOTHER Prostate cancer 19 MOTHER (uncle brother of mother) Psychosocial problem 19 FATHER Respiratory disorder 19 FATHER (grandfather) Seizure disorder 19 MOTHER Physical Exam-Suspected Sepsis Physical Exam Vital Signs Vital Signs - First Documented 11/20/19 05:47 Temp 37.4 Pulse 80 Resp 28 B/P (MAP) 111/84 (93) O2 Delivery Room Air Capillary Refill : Height, Weight, BMI Height: 5'0.00" Weight: 258lbs. 2.0oz. 117.694061qg; 48.00 BMI Method:Stated General Appearance: No Apparent Distress, WD/WN HEENT: PERRL/EOMI, TMs Normal Neck: Non Tender, Supple Respiratory: Accessory Muscle Use, Decreased Breath Sounds, Expiration, Wheezing Cardiovascular: Regular Rate, Rhythm, No Murmur Gastrointestinal: Non Tender, Soft Back: Normal Inspection, No CVA Tenderness, No Vertebral Tenderness Extremity: Normal Range of Motion, Non Tender Neurologic/Psychiatric: Alert, Oriented x3 Skin: normal color, warm/dry Focused Exam Lactate Level 11/20/19 06:20: Lactic Acid Level 1.62 Lactic Acid Level Laboratory Tests Test 11/20/19 06:20 Lactic Acid Level 1.62 MMOL/L (0.50-2.00) Procedures/Interventions Date of ETT Placement: Aug 30, 2017 Time of ETT Placement: 2234 Suture Size: 4-0 Progress/Results/Core Measures Suspected Sepsis SIRS Temperature: Pulse: Respiratory Rate: Laboratory Tests 11/20/19 06:20: White Blood Count 9.5 Blood Pressure / Mean: 11/20/19 06:20: Lactic Acid Level 1.62 Laboratory Tests 11/20/19 06:20: Creatinine 0.68, INR Comment 1.0, Platelet Count 228, Total Bilirubin 0.4 Results/Orders Lab Results Laboratory Tests Test 11/20/19 06:10 11/20/19 06:20 Range/Units Urine Color YELLOW Urine Clarity CLEAR Urine pH 6.0 5-9 Urine Specific [place] >=1.030 1.016-1.022 Urine Protein 2+ H NEGATIVE Urine Glucose (UA) NEGATIVE NEGATIVE Urine Ketones 2+ H NEGATIVE Urine Nitrite NEGATIVE NEGATIVE Urine Bilirubin 1+ H NEGATIVE Urine Urobilinogen 1.0 < = 1.0 MG/DL Urine Leukocyte Esterase NEGATIVE NEGATIVE Urine RBC (Auto) TRACE-I NEGATIVE Urine RBC RARE /HPF Urine WBC NONE /HPF Urine Squamous Epithelial Cells 2-5 /HPF Urine Crystals PRESENT H /LPF Urine Amorphous Sediment FEW JOAQUÍN URATES H /LPF Urine Bacteria TRACE /HPF Urine Casts NONE /LPF Urine Mucus MODERATE H /LPF Urine Culture Indicated CULTURE PENDING Urine Opiates Screen NEGATIVE NEGATIVE Urine Oxycodone Screen NEGATIVE NEGATIVE Urine Methadone Screen NEGATIVE NEGATIVE Urine Propoxyphene Screen NEGATIVE NEGATIVE Urine Barbiturates Screen NEGATIVE NEGATIVE Ur Tricyclic Antidepressants Screen POSITIVE H NEGATIVE Urine Phencyclidine Screen NEGATIVE NEGATIVE Urine Amphetamines Screen NEGATIVE NEGATIVE Urine Methamphetamines Screen NEGATIVE NEGATIVE Urine Benzodiazepines Screen POSITIVE H NEGATIVE Urine Cocaine Screen NEGATIVE NEGATIVE Urine Cannabinoids Screen POSITIVE H NEGATIVE White Blood Count 9.5 4.3-11.0 10^3/uL Red Blood Count 5.32 4.35-5.85 10^6/uL Hemoglobin 15.3 11.5-16.0 G/DL Hematocrit 46 35-52 % Mean Corpuscular Volume 87 80-99 FL Mean Corpuscular Hemoglobin 29 25-34 PG Mean Corpuscular Hemoglobin Concent 33 32-36 G/DL Red Cell Distribution Width 14.9 H 10.0-14.5 % Platelet Count 228 130-400 10^3/uL Mean Platelet Volume 11.4 H 7.4-10.4 FL Neutrophils (%) (Auto) 83 H 42-75 % Lymphocytes (%) (Auto) 13 12-44 % Monocytes (%) (Auto) 4 0-12 % Eosinophils (%) (Auto) 0 0-10 % Basophils (%) (Auto) 0 0-10 % Neutrophils # (Auto) 7.9 H 1.8-7.8 X 10^3 Lymphocytes # (Auto) 1.3 1.0-4.0 X 10^3 Monocytes # (Auto) 0.4 0.0-1.0 X 10^3 Eosinophils # (Auto) 0.0 0.0-0.3 10^3/uL Basophils # (Auto) 0.0 0.0-0.1 10^3/uL Prothrombin Time 13.6 12.2-14.7 SEC INR Comment 1.0 0.8-1.4 Activated Partial Thromboplast Time 39 H 24-35 SEC Sodium Level 141 135-145 MMOL/L Potassium Level 3.4 L 3.6-5.0 MMOL/L Chloride Level 103 98-107 MMOL/L Carbon Dioxide Level 24 21-32 MMOL/L Anion Gap 14 5-14 MMOL/L Blood Urea Nitrogen 7 7-18 MG/DL Creatinine 0.68 0.60-1.30 MG/DL Estimat Glomerular Filtration Rate > 60 BUN/Creatinine Ratio 10 Glucose Level 94 70-105 MG/DL Lactic Acid Level 1.62 0.50-2.00 MMOL/L Calcium Level 9.8 8.5-10.1 MG/DL Corrected Calcium 9.7 8.5-10.1 MG/DL Total Bilirubin 0.4 0.1-1.0 MG/DL Aspartate Amino Transf (AST/SGOT) 53 H 5-34 U/L Alanine Aminotransferase (ALT/SGPT) 47 0-55 U/L Alkaline Phosphatase 125 40-136 U/L C-Reactive Protein High Sensitivity 24.34 H 0.00-0.50 MG/DL B-Type Natriuretic Peptide 29.7 <100.0 PG/ML Total Protein 8.2 6.4-8.2 GM/DL Albumin 4.1 3.2-4.5 GM/DL Procalcitonin 0.04 <0.10 NG/ML Micro Results Microbiology 11/20/19 Influenza Types A,B Antigen (VIDHI) - Final, Complete My Orders Orders - DOMINGO NOBLES MD Lactated Ringers (Lr 1000 Ml Iv Solution (11/20/19 06:33) Fentanyl Injection (Sublimaze Injection (11/20/19 06:33) Promethazine/ Codeine Syrup (Phenergan W (11/20/19 06:45) BNP (11/20/19 06:37) Drug Screen Stat (Urine) (11/20/19 06:47) Albuterol Pre-Mix Nebs (Rt) (Proventil (11/20/19 07:56) Svn Small Volume Nebulizer (11/20/19 07:56) Albuterol/Ipra Inhalation Soln (Duoneb I (11/20/19 08:00) Svn Small Volume Nebulizer (11/20/19 08:00) Rocephin 1g/Ns Iv (11/20/19 08:45) Medications Given in ED Current Medications Medications Dose Ordered Sig/Garry Route Start Time Stop Time Status Last Admin Dose Admin Albuterol/ Ipratropium 3 ml ONCE ONCE INH 11/20/19 06:00 11/20/19 06:01 DC 11/20/19 06:42 3 ML Albuterol/ Ipratropium 3 ml ONCE ONCE INH 11/20/19 08:00 11/20/19 08:02 DC 11/20/19 08:17 3 ML Lactated Ringer's 1,000 ml @ 0 mls/hr Q0M ONCE IV 11/20/19 06:33 11/20/19 06:36 DC 11/20/19 06:42 999 MLS/HR Methylprednisolone Sodium Succinate 125 mg ONCE ONCE IVP 11/20/19 06:15 11/20/19 06:16 DC 11/20/19 06:25 125 MG Promethazine HCl/ Codeine 5 ml ONCE ONCE PO 11/20/19 06:45 11/20/19 06:46 DC 11/20/19 06:42 5 ML Vital Signs/I&O 11/20/19 11/20/19 11/20/19 05:47 05:47 07:00 Temp 37.4 37.4 Pulse 80 74 Resp 28 22 B/P (MAP) 111/84 (93) 142/98 O2 Delivery Room Air Room Air Room Air Capillary Refill : Progress Note : Progress Note Seen and evaluated. IV, labs, UA, blood cultures and lactic acid ordered. Influenza screen, pro-calcitonin and CRP ordered. LR 1 L bolus, fentanyl 50 g IV and Phenergan with codeine 5 mL by mouth ordered. Patient did get DuoNeb. Monitor patient. 825: Patient did receive repeat DuoNeb and albuterol treatment. She was able to walk to the bathroom without difficulty. We will send her home with nebulizer machine and I will order outpatient nebulizer fluids. Patient does have quite elevated CRP with normal pro-calcitonin. We will treat for bacterial infection given her length of symptoms and there is question on the chest x-ray. Radiology called pulmonary vascular congestion although I do believe there is possibly infiltrate especially in light of low BNP. All this was discussed with the patient who agrees with plan. Rocephin 1 g IV times one now and we will continue outpatient treatment with cefdinir. We will also continue outpatient steroids. Diagnostic Imaging Diagonstic Imaging: Xray Plain Films/CT/US/NM/MRI: chest Comments [facility] [place], [place] NAME: TERENCE FUNK [facility] REC#: [id number] PT STATUS: REG ER : 1970 PHYSICIAN: JOEL FULLER MD ADMIT DATE: 11/20/19/ER Draft Date of Exam:11/20/19 CHEST 1 VIEW, AP/PA ONLY INDICATION: Cough, fever and congestion. Comparison made with prior examination 11/18/2019. FINDINGS: There is cardiomegaly. There is some venous congestion. There is no pleural effusion or pneumothorax. Mediastinum is unremarkable. IMPRESSION: Cardiomegaly and mild central pulmonary venous congestion. Dictated on workstation # [id number] Dict: 11/20/1925 Trans: 11/20/19 0633 [id number] Interpreted by: FACUNDO MEEHAN MD Electronically signed by: Departure Impression Primary Impression: Pneumonia involving right lung Qualified Codes: J18.9 - Pneumonia, unspecified organism Additional Impression: Bronchitis Disposition: 01 HOME, SELF-CARE Condition: Stable Departure-Patient Inst. Decision time for Depature: 08:29 Referrals: HARVEY LINDSEY DO (PCP/Family) Primary Care Physician Patient Instructions: Acute Bronchitis, Adult (DC), Community-Acquired Pneumonia in Adults Add. Discharge Instructions: All discharge instructions reviewed with patient and/or family. Voiced understanding. Take medications as directed. Follow-up with your Dr. next week for recheck and further evaluation. Return for worse pain, fever, vomiting, weakness, breathing problems or other concerns as needed. You may take Tylenol and/or ibuprofen as needed for fever or pain per package directions. Scripts Azithromycin (Azithromycin) 250 Mg Tablet 250 MG PO UD, #6 TAB TAKE 2 TABLETS ON DAY ONE THEN TAKE 1 TABLET DAILY FOR FOUR MORE DAYS Prov: DOMINGO NOBLES MD 11/20/19 Albuterol Sulfate (Albuterol Sulfate) 2.5 Mg/3 Ml Vial.neb 2.5 MG INH Q4H PRN for WHEEZING, #50 EA 1 Refill Prov: DOMINGO NOBLES MD 11/20/19 Promethazine HCl/Codeine (Prometh-Codein 6.25-10 mg/5 ml) 5 Ml Syrup 5 ML PO Q6H PRN for COUGH, #40 ML Prov: DOMINGO NOBLES MD 11/20/19 Prednisone (Prednisone) 20 Mg Tab 40 MG PO DAILY, #10 TAB 0 Refills Prov: DOMINGO NOBLES MD 11/20/19 Cefdinir (Cefdinir) 300 Mg Capsule 300 MG PO BID, #14 CAP 0 Refills Prov: DOMINGO NOBLES MD 11/20/19 DOMINGO NOBLES MD Nov 20, 2019 06:57
[2019-11-20 07:07] LABS: AMPHETAMINE SCREEN, URINE NEGATIVE (NEGATIVE); BARBITURATE SCREEN URINE NEGATIVE (NEGATIVE); BENZODIAZEPINES SCREEN URINE POSITIVE (NEGATIVE); CANNABINOID SCREEN, URINE POSITIVE (NEGATIVE); COCAINE SCREEN URINE NEGATIVE (NEGATIVE); METHADONE STAT NEGATIVE (NEGATIVE); METHAMPHETAMINE SCREEN URINE S NEGATIVE (NEGATIVE); OPIATE SCREEN URINE NEGATIVE (NEGATIVE); OXYCODONE STAT NEGATIVE (NEGATIVE); PROPOXYPHENE STAT NEGATIVE (NEGATIVE); TRICYCLIC ANTIDEPRESSANTS SCRE POSITIVE (NEGATIVE)
[2019-11-20 07:12] LABS: ALANINE AMINOTRANSFERASE 47 U/L (0-55); ALBUMIN 4.1 GM/DL (3.2-4.5); ALKALINE PHOSPHATASE 125 U/L (40-136); BILIRUBIN,TOTAL 0.4 MG/DL (0.1-1.0); BUN/CREATININE RATIO 10; CALCIUM 9.8 MG/DL (8.5-10.1); CARBON DIOXIDE 24 MMOL/L (21-32); CHLORIDE 103 MMOL/L (98-107); CREATININE SERUM 0.68 MG/DL (0.60-1.30); GFR ESTIMATED > 60; GLUCOSE 94 MG/DL (70-105); POTASSIUM 3.4 MMOL/L (3.6-5.0); SODIUM 141 MMOL/L (135-145); TOTAL PROTEIN 8.2 GM/DL (6.4-8.2)
[2019-11-20] MEDS ORDERED: RT-ALBUTEROL SULF 2.5 MG/3 ML PRE-MIX VIAL INH STA (07:56)
[2019-11-20] MEDS ORDERED: PRD20T PO (08:32)
[2019-11-20] MEDS ORDERED: CEFD300C3 PO (08:32)
[2019-11-20] MEDS ORDERED: PROM5SYR PO (08:32)
[2019-11-20] MEDS ORDERED: ALBU2.5V4 INH (08:32)
[2019-11-20] MEDS ORDERED: AZIT250T12 PO (08:35)
[2019-11-20] MEDS ORDERED: cefTRIAXone FOR IV USE 1,000 MG in WATER (STERILE) FOR INJECTION 10 ML IV ONE (08:45)
[2019-11-20 09:29] VITALS: BP 156/103
== END 2019-11-20 09:36 | disposition home or self-care (01) ==
LOC: EDUNIT# 05:47 → ER 05:49
DX: J18.9 Pneumonia, unspecified organism (principal); J40 Bronchitis, not specified as acute or chronic; I10 Essential (primary) hypertension; Z86.711 Personal history of pulmonary embolism; Z87.891 Personal history of nicotine dependence
CPT/HCPCS: 36415; 71045; 80053; 80306; 81000; 83605; 83880; 84145; 85025; 85610; 85730; 86141; 87040; 87088; 87804; 96361; 96374; 96375

== ENCOUNTER 2019-11-21 08:34 | Inpatient (IN) | payer MEDICAID ==
[~2019-11-21] VITALS: Ht 150 cm; Wt 107.7 kg
[~2019-11-21 08:34] MED LIST changes: +ALBU2.5V4 INH; +PROM5SYR PO
[2019-11-21] MEDS ORDERED: LACTATED RINGERS 1,000 ML IV ONE ×2 (08:46→12:08)
[2019-11-21] MEDS ORDERED: KETOROLAC 30 MG/ML VIAL IVP STA (08:46)
[2019-11-21 08:57] LABS: BASOPHILS % (AUTO) 0 % (0-10); EOSINOPHILS % (AUTO) 0 % (0-10); HEMATOCRIT 44 % (35-52); HEMOGLOBIN 14.9 G/DL (11.5-16.0); LYMPHOCYTES # (AUTO) 1.5 X 10^3 (1.0-4.0); LYMPHOCYTES % (AUTO) 11 % (12-44); MEAN CORPUSCULAR HEMOGLOBIN 29 PG (25-34); MEAN CORPUSCULAR HGB CONC 34 G/DL (32-36); MEAN CORPUSCULAR VOLUME 86 FL (80-99); MEAN PLATELET VOLUME 11.3 FL (7.4-10.4); MONOCYTES # (AUTO) 0.4 X 10^3 (0.0-1.0); MONOCYTES % (AUTO) 3 % (0-12); NEUTROPHILS # (AUTO) 11.4 X 10^3 (1.8-7.8); NEUTROPHILS % (AUTO) 86 % (42-75); PLATELET COUNT 228 10^3/uL (130-400); RED CELL DISTRIBUTION WIDTH 15.2 % (10.0-14.5); WHITE BLOOD COUNT 13.3 10^3/uL (4.3-11.0)
[2019-11-21] MEDS ORDERED: RT-ALBUTEROL/IPRATROPIUM 3 ML (DUONEB) VIAL INH ONE (09:00)
[2019-11-21 09:09] LABS: PROTHROMBIN TIME PATIENT 13.1 SEC (12.2-14.7)
[2019-11-21 09:15] LABS: ALANINE AMINOTRANSFERASE 36 U/L (0-55); ALBUMIN 3.7 GM/DL (3.2-4.5); ALKALINE PHOSPHATASE 110 U/L (40-136); BILIRUBIN,TOTAL 0.4 MG/DL (0.1-1.0); BUN/CREATININE RATIO 17; CARBON DIOXIDE 21 MMOL/L (21-32); CHLORIDE 105 MMOL/L (98-107); CREATININE SERUM 0.63 MG/DL (0.60-1.30); GFR ESTIMATED > 60; GLUCOSE 108 MG/DL (70-105); POTASSIUM 3.6 MMOL/L (3.6-5.0); SODIUM 141 MMOL/L (135-145); TOTAL PROTEIN 7.6 GM/DL (6.4-8.2)
--- NOTE | 2019-11-21 09:22 | ED General ---
General Chief Complaint: Abdominal/GI Problems Stated Complaint: BRONCHITIS Nursing Triage Note: PT BROUGHT IN BY [facility] WITH COMPLAINT OF SOA, ABD PAIN, BACK PAIN. WAS SEEN YESTERDAY AND DIAGNOSED WITH PNEUMONIA AND BRONCHITIS. Nursing Sepsis Screen: No Definite Risk Source of Information: Patient, EMS Exam Limitations: No Limitations History of Present Illness Date Seen by Provider: Nov 21, 2019 Time Seen by Provider: 08:35 Initial Comments Here by EMS with report of right-sided chest pain, short of breath and cough. Has is her third visit in 4 days and she has known right-sided pneumonia. She was initiated on cefdinir and azithromycin yesterday and was given nebulizer machine and prescription for albuterol neb. She states that she picked all that up it's not helping. She arrives today complaining of pain. O2 sat 96% with heart rate at 67. Has not tried her nebulizer since last night. States that she can't handle it at home. No coughing currently but is reporting cough at home. COVID-19 negative tests from November 17. Timing/Duration: 1 Week Severity: Moderate Associated Systoms: Chest Pain, Cough, Fever/Chills; No Nausea/Vomiting; Shortness of Air; No Weakness Allergies and Home Medications Allergies Coded Allergies: No Known Drug Allergies (Unverified , 04/03/18) Home Medications Albuterol Sulfate 1 Puff Puff, 2 PUFF INH TID PRN for SHORTNESS OF BREATH, (Reported) Albuterol Sulfate 1 Puff Puff, 2 PUFF IH Q4H PRN for WHEEZING 1 PUFF = 90 MCG Prescribed by: EL BYRNES on 11/18/19 1700 Albuterol Sulfate 2.5 Mg/3 Ml Vial.neb, 2.5 MG INH Q4H PRN for WHEEZING Prescribed by: DOMINGO NOBLES on 11/20/19 0832 Alprazolam 1 Mg Tablet, 1 MG PO BID, (Reported) Amitriptyline HCl 25 Mg Tablet, 25 MG PO HS, (Reported) Amlodipine Besylate 10 Mg Tablet, 10 MG PO DAILY, (Reported) LAST FILLED #30 12-11-18 Azithromycin 250 Mg Tablet, 250 MG PO UD TAKE 2 TABLETS ON DAY ONE THEN TAKE 1 TABLET DAILY FOR FOUR MORE DAYS Prescribed by: DOMINGO NOBLES on 11/20/19 0835 Benzonatate 100 Mg Capsule, 100 MG PO Q6H PRN for COUGH Prescribed by: EL BYRNES on 11/18/19 1700 Cefdinir 300 Mg Capsule, 300 MG PO BID Prescribed by: DOMINGO NOBLES on 11/20/19 0832 Cyclobenzaprine HCl 10 Mg Tablet, 10 MG PO BID PRN for MUSCLE SPASMS, (Reported) Diphenhydramine HCl 25 Mg Capsule, 75 MG PO HS PRN for SLEEP, (Reported) TAKES 3 (25MG) CAPSULES Doxycycline Hyclate 100 Mg Tablet, 100 MG PO BID Prescribed by: DOMINGO NOBLES on 05/15/19 1102 Duloxetine HCl 30 Mg Capsule.dr, 30 MG PO BID, (Reported) Famotidine 20 Mg Tablet, 20 MG PO BID Prescribed by: DOMINGO NOBLES on 05/15/19 1101 Gabapentin 300 Mg Capsule, 300 MG PO BID, (Reported) Lisinopril 20 Mg Tablet, 20 MG PO DAILY, (Reported) Prednisone 20 Mg Tab, 40 MG PO DAILY Prescribed by: JAMES DIA on 05/06/19 1244 Prednisone 20 Mg Tab, 40 MG PO DAILY Prescribed by: DOMINGO NOBLES on 05/15/19 1102 Prednisone 20 Mg Tab, 40 MG PO DAILY Prescribed by: DOMINGO NOBLES on 11/20/19 0832 Promethazine HCl/Codeine 5 Ml Syrup, 5 ML PO Q6H PRN for COUGH Prescribed by: DOMINGO NOBLES on 11/20/19 0833 Quetiapine Fumarate 100 Mg Tablet, 100 MG PO HS, (Reported) LAST FILLED #30 12-12-18 Patient Home Medication List Home Medication List Reviewed: Yes Review of Systems Review of Systems Constitutional: see HPI, fever EENTM: throat pain; No ear pain Respiratory: cough, wheezing Cardiovascular: see HPI; No edema, No palpitations Gastrointestinal: No abdominal pain, No nausea, No vomiting Genitourinary: no symptoms reported All Other Systems Reviewed Negative Unless Noted: Yes Past Jwiderq-Lfenyn-Twebrk Hx Past Med/Social Hx: Reviewed Nursing Past Med/Soc Hx Patient Social History Alcohol Use: Denies Use Number of Drinks Today: FF Alcohol Beverage of Choice: Vodka Recreational Drug Use: Yes Drug of Choice: 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 , METH, THC, PILLS--POLYSUBSTANCES-OPIATES/BENZO'S ESPECIALLY Smoking Status: Former Smoker Type Used: Cigarettes Former Smoker, Quit: December 24, 2016 2nd Hand Smoke Exposure: Yes Recent Foreign Travel: No Contact w/Someone Who Travel: No Recent Infectious Disease Expo: No Recent Hopitalizations: No Immunizations Up To Date Tetanus Booster (TDap): Unknown Date of Pneumonia Vaccine: Apr 26, 2015 Date of Influenza Vaccine: Jul 10, 2017 Seasonal Allergies Seasonal Allergies: No Past Medical History Surgeries: Yes Eye Surgery, Gallbladder, Hysterectomy, Orthopedic, Renal, Tubal Ligation Respiratory: Yes Pneumonia, Chronic Bronchitis, Pulmonary Embolism Currently Using CPAP: No Currently Using BIPAP: No Cardiac: Yes Hypertension Neurological: Yes ("PSEUDO SEIZURES") Headaches /Migraines, Seizure Disorder 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 Disorders: No Female 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 Disorders: Denies 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 EXTENSIVE DENTAL CARIES/LEGALLY BLIND) Loss of Vision: Bilateral Cancer: No Psychosocial: Yes (POLYSUBSTANCE ABUSE, OVERDOSES ) Pseudo Seizures, Sleep Difficulties, Anxiety, Suicide Attempts, Depression Integumentary: No Blood Disorders: No Family Medical History Reviewed Nursing Family Hx Alcoholism 19 FATHER (grandfather) Alzheimer's disease 19 MOTHER (grandmother) Arthritis 19 FATHER Cardiovascular disease 19 FATHER 19 MOTHER Cataracts 19 MOTHER Coronary thrombosis 19 FATHER Dementia 19 MOTHER (grandparents) Diabetes mellitus 19 MOTHER Drug abuse 19 FATHER Glaucoma 19 FATHER (grandfather) Headache disorder 19 FATHER Hypercholesterolemia 19 FATHER Hypertension 19 FATHER Myocardial infarction 19 FATHER Parkinson's disease 19 MOTHER Prostate cancer 19 MOTHER (uncle brother of mother) Psychosocial problem 19 FATHER Respiratory disorder 19 FATHER (grandfather) Seizure disorder 19 MOTHER Physical Exam-Suspected Sepsis Physical Exam Vital Signs Vital Signs - First Documented 11/21/19 08:37 Temp 35.8 Pulse 68 Resp 19 B/P (MAP) 162/106 (124) Pulse Ox 95 O2 Delivery Room Air Capillary Refill : Less Than 3 Seconds Blood Pressure Mean: 124 Height, Weight, BMI Height: 5'0.00" Weight: 258lbs. 2.0oz. 117.446034dv; 46.00 BMI Method:Stated General Appearance: WD/WN, Anxious, Moderate Distress (pain related) HEENT: PERRL/EOMI, Pharynx Normal Neck: Non Tender, Supple Respiratory: No Accessory Muscle Use, Wheezing (expiratory) Cardiovascular: Regular Rate, Rhythm, No Murmur Gastrointestinal: Non Tender, Soft Back: Normal Inspection, No CVA Tenderness, No Vertebral Tenderness Extremity: Normal Capillary Refill, Normal Range of Motion, Non Tender, No Calf Tenderness Neurologic/Psychiatric: Alert, Oriented x3, No Motor/Sensory Deficits Skin: normal color, warm/dry Focused Exam Lactate Level 11/21/19 08:49: Lactic Acid Level 1.29 Lactic Acid Level Laboratory Tests Test 11/21/19 08:49 Lactic Acid Level 1.29 MMOL/L (0.50-2.00) Procedures/Interventions Date of ETT Placement: Aug 30, 2017 Time of ETT Placement: 5 Suture Size: 4-0 Progress/Results/Core Measures Suspected Sepsis Recent Fever Within 48 Hours: No Infection Criteria Present: None New/Unexplained Altered Menta: No Sepsis Screen: No Definite Risk SIRS Temperature: Pulse: 68 Respiratory Rate: 19 Laboratory Tests 11/21/19 08:49: White Blood Count 13.3H Blood Pressure 162 /106 Mean: 124 11/21/19 08:49: Lactic Acid Level 1.29 Laboratory Tests 11/21/19 08:49: Creatinine 0.63, INR Comment 1.0, Platelet Count 228, Total Bilirubin 0.4 Results/Orders Lab Results Laboratory Tests Test 11/21/19 08:49 Range/Units White Blood Count 13.3 H 4.3-11.0 10^3/uL Red Blood Count 5.14 4.35-5.85 10^6/uL Hemoglobin 14.9 11.5-16.0 G/DL Hematocrit 44 35-52 % Mean Corpuscular Volume 86 80-99 FL Mean Corpuscular Hemoglobin 29 25-34 PG Mean Corpuscular Hemoglobin Concent 34 32-36 G/DL Red Cell Distribution Width 15.2 H 10.0-14.5 % Platelet Count 228 130-400 10^3/uL Mean Platelet Volume 11.3 H 7.4-10.4 FL Neutrophils (%) (Auto) 86 H 42-75 % Lymphocytes (%) (Auto) 11 L 12-44 % Monocytes (%) (Auto) 3 0-12 % Eosinophils (%) (Auto) 0 0-10 % Basophils (%) (Auto) 0 0-10 % Neutrophils # (Auto) 11.4 H 1.8-7.8 X 10^3 Lymphocytes # (Auto) 1.5 1.0-4.0 X 10^3 Monocytes # (Auto) 0.4 0.0-1.0 X 10^3 Eosinophils # (Auto) 0.0 0.0-0.3 10^3/uL Basophils # (Auto) 0.0 0.0-0.1 10^3/uL Prothrombin Time 13.1 12.2-14.7 SEC INR Comment 1.0 0.8-1.4 Activated Partial Thromboplast Time 35 24-35 SEC Sodium Level 141 135-145 MMOL/L Potassium Level 3.6 3.6-5.0 MMOL/L Chloride Level 105 98-107 MMOL/L Carbon Dioxide Level 21 21-32 MMOL/L Anion Gap 15 H 5-14 MMOL/L Blood Urea Nitrogen 11 7-18 MG/DL Creatinine 0.63 0.60-1.30 MG/DL Estimat Glomerular Filtration Rate > 60 BUN/Creatinine Ratio 17 Glucose Level 108 H 70-105 MG/DL Lactic Acid Level 1.29 0.50-2.00 MMOL/L Calcium Level 10.0 8.5-10.1 MG/DL Corrected Calcium 10.2 H 8.5-10.1 MG/DL Total Bilirubin 0.4 0.1-1.0 MG/DL Aspartate Amino Transf (AST/SGOT) 36 H 5-34 U/L Alanine Aminotransferase (ALT/SGPT) 36 0-55 U/L Alkaline Phosphatase 110 40-136 U/L Total Protein 7.6 6.4-8.2 GM/DL Albumin 3.7 3.2-4.5 GM/DL My Orders Orders - DOMINGO NOBLES MD Cbc With Automated Diff (11/21/19 08:46) Comprehensive Metabolic Panel (11/21/19 08:46) Blood Culture (11/21/19 08:46) Sputum Culture (11/21/19 08:46) Urinalysis (11/21/19 08:46) Urine Culture (11/21/19 08:46) Protime With Inr (11/21/19 08:46) Partial Thromboplastin Time (11/21/19 08:46) Chest 1 View, Ap/Pa Only (11/21/19 08:46) Ed Iv/Invasive Line Start (11/21/19 08:46) Vital Signs Adult Sepsis Patie Q15M (11/21/19 08:46) O2 (11/21/19 08:46) Remove Rings In Anticipation O (11/21/19 08:46) Lactic Acid Analyzer (11/21/19 08:46) Lactated Ringers (Lr 1000 Ml Iv Solution (11/21/19 08:46) Ketorolac Injection (Toradol Injection) (11/21/19 08:46) Albuterol/Ipra Inhalation Soln (Duoneb I (11/21/19 09:00) Svn Small Volume Nebulizer (11/21/19 08:48) Ct Angio Chest W (11/21/19 09:37) Promethazine Injection (Phenergan Injec (11/21/19 09:39) Iohexol Injection (Omnipaque 350 Mg/Ml 1 (11/21/19 10:30) Received Contrast (Hold Metformin- Contr (11/21/19 10:30) Sodium Chloride Flush (Catheter Flush Sy (11/21/19 10:30) Ns (Ivpb) (Sodium Chloride 0.9% Ivpb Bag (11/21/19 10:30) Fentanyl Injection (Sublimaze Injection (11/21/19 11:01) Azithromycin Injection (Zithromax Inject (11/21/19 11:01) Ceftriaxone For Iv Use (Rocephin For I (11/21/19 11:01) Medications Given in ED Current Medications Medications Dose Ordered Sig/Garry Route Start Time Stop Time Status Last Admin Dose Admin Albuterol/ Ipratropium 3 ml ONCE ONCE INH 11/21/19 09:00 11/21/19 09:01 DC 11/21/19 09:22 3 ML Iohexol 100 ml ONCE ONCE IV 11/21/19 10:30 11/21/19 10:31 DC 11/21/19 10:29 87 ML Lactated Ringer's 1,000 ml @ 0 mls/hr Q0M ONCE IV 11/21/19 08:46 11/21/19 08:48 DC 11/21/19 08:57 1,000 MLS/HR Sodium Chloride 10 ml NEEDED PRN IV 11/21/19 10:30 11/21/19 10:29 10 ML Sodium Chloride 100 ml ONCE ONCE IV 11/21/19 10:30 11/21/19 10:31 DC 11/21/19 10:29 80 ML Vital Signs/I&O 11/21/19 11/21/19 08:37 09:23 Temp 35.8 Pulse 68 Resp 19 B/P (MAP) 162/106 (124) Pulse Ox 95 95 O2 Delivery Room Air Capillary Refill : Less Than 3 Seconds Blood Pressure Mean: 124 Progress Note : Progress Note Seen and evaluated. IV, labs, chest x-ray, UA, blood cultures, lactic acid, LR 1 L bolus and duo neb ordered. Anticipate admission due to failed outpatient therapy. Monitor patient. Patient complaining of persistent nausea and vomiting. Phenergan 25 mg IV given. Also given Toradol 30 mg IV for pain. Patient was sent for CT scan to rule out pulmonary embolism due to PE history. 1100: Radiologist called to notify concerning findings on CT scan for peripheral multilobar ground glass appearance and infiltrates concerning for similar due to COVID-19 infec tion. She has had negative COVID-19 test on 11/17. In spite of the negative tests, CT findings are concerning. We will go ahead and initiate appropriate COVID-19 precautions now and retest her given the current situation. Infection control notified and EMS notified. I did discuss the case with Dr. Soumya Combs and she accepts patient for admission, inpatient status. Rocephin 1 g IV and Zithromax 500 mg IV ordered. Patient is unsure she took her antibiotics this morning so we will go ahead and give dose of both. Patient informed and agrees with plan. Patient given fentanyl 50 g IV for pain. Diagnostic Imaging Diagonstic Imaging: Xray Plain Films/CT/US/NM/MRI: chest Comments [facility] [place], [place] NAME: TERENCE FUNK [facility] REC#: [id number] PT STATUS: REG ER : 1970 PHYSICIAN: DOMINGO NOBLES MD ADMIT DATE: 11/21/19/ER Signed Date of Exam:11/21/19 CHEST 1 VIEW, AP/PA ONLY INDICATION: Shortness of breath and cough. Comparison made with prior examination from 11/20/2019. FINDINGS: There is cardiomegaly. There is some venous congestion. No pleural effusion or pneumothorax. Mediastinum is unremarkable. IMPRESSION: Cardiomegaly. Mild venous congestion. The increased perihilar markings could also reflect bronchitis. Recommend clinical correlation. Dictated by: Dictated on workstation # [id number] Dict: 11/21/19 0936 Trans: 11/21/19 0952 RUBY [id number] Interpreted by: FACUNDO MEEHAN MD Electronically signed by: FACUNDO MEEHAN MD 11/21/1951 Reviewed: Reviewed by Me Diagonstic Imaging: CT Plain Films/CT/US/NM/MRI: chest Comments [facility] [place] [place] NAME: TERENCE FUNK [facility] REC#: [id number] PT STATUS: REG ER : 1970 PHYSICIAN: DOMINGO NOBLES MD ADMIT DATE: 11/21/19/ER Signed Date of Exam:11/21/19 CT ANGIO CHEST W PROCEDURE: CT angiography of the chest with contrast. TECHNIQUE: Multiple contiguous axial images were obtained through the chest after uneventful bolus administration of intravenous contrast. 3D reconstructed CTA MIP acquisitions were also performed. Auto Exposure Controls were utilized during the CT exam to meet ALARA standards for radiation dose reduction. INDICATION: Shortness of breath and pneumonia. FINDINGS: There are patchy bilateral groundglass infiltrates. There is no pleural effusion. There is no pericardial fluid. Heart size is normal. Thoracic aorta is normal in caliber. There is no pneumothorax. There is no pathologically enlarged adenopathy in the chest. The visualized intra-abdominal structures are unremarkable. There are no filling defects seen within the pulmonary arteries to suggest pulmonary embolism. IMPRESSION: Patchy bilateral groundglass infiltrates most suspect for pneumonia particularly viral. Recommend clinical correlation. No evidence of aortic dissection or pulmonary embolism. Dictated by: Dictated on workstation # [id number] Dict: 11/21/19 1038 Trans: 11/21/19 1044 [facility] [id number] Interpreted by: FACUNDO MEEHAN MD Electronically signed by: FACUNDO MEEHAN MD 11/21/19 1044 Reviewed: Reviewed by Me Departure Communication (Admissions) Time/Spoke to Admitting Phy: 11:00 Impression Primary Impression: Bilateral pneumonia Qualified Codes: J18.9 - Pneumonia, unspecified organism Disposition: ADMITTED INPATIENT Condition: Stable Admissions Decision to Admit Reason: Admit from ER (General) Decision to Admit/Date: Nov 21, 2019 Time/Decision to Admit Time: 11:00 Departure-Patient Inst. Referrals: HARVEY LINDSEY DO (PCP/Family) Primary Care Physician DOMINGO NOBLES MD Nov 21, 2019 09:22
[2019-11-21] MEDS ORDERED: PROMETHAZINE INJ 25 MG/ML (PHENERGAN) AMP IVP STA (09:39)
--- NOTE | 2019-11-21 09:46 | Diagnostic Imaging Report ---
INDICATION: Shortness of breath and cough. Comparison made with prior examination from 11/20/2019. FINDINGS: There is cardiomegaly. There is some venous congestion. No pleural effusion or pneumothorax. Mediastinum is unremarkable. IMPRESSION: Cardiomegaly. Mild venous congestion. The increased perihilar markings could also reflect bronchitis. Recommend clinical correlation. Dictated by: Dictated on workstation # [id number]
[2019-11-21] MEDS: CATHETER FLUSH 10 ML SYR IV PRN (10:29)
[2019-11-21] MEDS ORDERED: IOHEXOL 350 MG/ML 100 ML (OMNIPAQUE 350) VIAL IV ONE (10:30)
[2019-11-21] MEDS ORDERED: HOLD METFORMIN - RECEIVED CONTRAST 20 ML VIAL IV SCH (10:30)
[2019-11-21] MEDS ORDERED: NS 100 ML (IVPB) BAG IV ONE (10:30)
--- NOTE | 2019-11-21 10:46 | Diagnostic Imaging Report ---
PROCEDURE: CT angiography of the chest with contrast. TECHNIQUE: Multiple contiguous axial images were obtained through the chest after uneventful bolus administration of intravenous contrast. 3D reconstructed CTA MIP acquisitions were also performed. Auto Exposure Controls were utilized during the CT exam to meet ALARA standards for radiation dose reduction. INDICATION: Shortness of breath and pneumonia. FINDINGS: There are patchy bilateral groundglass infiltrates. There is no pleural effusion. There is no pericardial fluid. Heart size is normal. Thoracic aorta is normal in caliber. There is no pneumothorax. There is no pathologically enlarged adenopathy in the chest. The visualized intra-abdominal structures are unremarkable. There are no filling defects seen within the pulmonary arteries to suggest pulmonary embolism. IMPRESSION: Patchy bilateral groundglass infiltrates most suspect for pneumonia particularly viral. Recommend clinical correlation. No evidence of aortic dissection or pulmonary embolism. Dictated by: Dictated on workstation # [id number]
[2019-11-21] MEDS ORDERED: fentaNYL INJECTION 100 MCG/2 ML AMP IVP STA (11:01)
[2019-11-21] MEDS ORDERED: AZITHROMYCIN INJECTION 500 MG in NS (IVPB) 250 ML IV STA (11:01)
[2019-11-21] MEDS ORDERED: cefTRIAXone FOR IV USE 1,000 MG in WATER (STERILE) FOR INJECTION 10 ML IV STA (11:01)
[2019-11-21 12:10] VITALS: BP 184/114
--- NOTE | 2019-11-21 12:10 | NUR ---
TERENCE FUNK admitted to room 431-1, with an admitting diagnosis of PNA AND R/O COVID, on 11/21/19 from ED via WHEELCHAIR, accompanied by ED STAFF.TERENCE FUNK introduced to surroundings, call light, bed controls, phone, TV, temperature control, lights, meal times, smoking policy, visitor policy, side rail policy, bathrooms and showers. Patient Rights given to patient in the handbook. TERENCE FUNK verbalizes understanding that [facility] is not responsible for the loss or damage to any personal effects or valuables that are kept in the patients posession during their hospitalization. TERENCE FUNK verbalizes understanding of Interdisciplinary Patient Education. Patient and/or family were informed about the Rapid Response Team and its purpose.
[2019-11-21] MEDS: LACTATED RINGERS 1,000 ML IV SCH ×2 (12:32→20:40)
--- NOTE | 2019-11-21 12:40 | History & Physical-Hospitalist ---
History of Present Illness HPI/Chief Complaint Pt is a 49yoCF who was admitted due to SOB and abdominal pain. She was seen in the ER 3 times over the past four days for similar symptoms. She was tested for COVID19 at one of these admissions and it was negative. She returned today because of worsening SOB. CT was done due to history of PE and this was negative for PE but the radiologist was concerned that this still could be COVID. Retesting was done and she is admitted for CAP after failing outpatient management. She complaints of persistent cough and abdominal pain. She also has had nausea. She states her pain is similar to a previous episode of pancreatitis . Source: patient Date Seen 11/21/19 Time Seen by a Provider: 12:34 Attending Physician Dallin Combs MD PCP Eliot Gong DO Referring Physician Date of Admission Nov 21, 2019 at 11:13 Home Medications & Allergies Home Medications Reviewed patient Home Medication Reconciliation performed by pharmacy medication reconciliations dental lab technician and/or nursing. Patients Allergies have been reviewed. 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 , METH, THC, PILLS--POLYSUBSTANCES-OPIATES/BENZO'S ESPECIALLY Smoking Status: Former Smoker Former Smoker, Quit: December 24, 2016 Type Used: Cigarettes 2nd Hand Smoke Exposure: Yes Recent Foreign Travel: No Contact w/other who traveled: No Recent Hopitalizations: No Recent Infectious Disease Expo: No Immunizations Up To Date Tetanus Booster (TDap): Unknown Date of Pneumonia Vaccine: Apr 26, 2015 Date of Influenza Vaccine: Jul 10, 2017 Seasonal Allergies Seasonal Allergies: No Past Medical History Surgeries: Eye Surgery, Gallbladder, Hysterectomy, Orthopedic, Renal, Tubal Ligation Respiratory: Asthma, COPD, Pulmonary Embolism Currently Using CPAP: No Currently Using BIPAP: No Cardiac: Hypertension Neurological: Headaches /Migraines, Seizure Disorder 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: No Sexually Transmitted Disease: No HIV/AIDS: No Female 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 Disorders: Denies Hysterectomy Genitourinary: Kidney Infection, Kidney Stones, UTI-Chronic Gastrointestinal: Gall Bladder Disease Musculoskeletal: Degenerate Disk Disease, Arthritis, Fibromyalgia, Back Injury, Scoliosis, Chronic Back Pain Loss of Vision: Bilateral Psychosocial: Pseudo Seizures, Sleep Difficulties, Anxiety, Suicide Attempts, Depression History of Blood Disorders: No Family History Reviewed Nursing Family Hx Alcoholism 19 FATHER (grandfather) Alzheimer's disease 19 MOTHER (grandmother) Arthritis 19 FATHER Cardiovascular disease 19 FATHER 19 MOTHER Cataracts 19 MOTHER Coronary thrombosis 19 FATHER Dementia 19 MOTHER (grandparents) Diabetes mellitus 19 MOTHER Drug abuse 19 FATHER Glaucoma 19 FATHER (grandfather) Headache disorder 19 FATHER Hypercholesterolemia 19 FATHER Hypertension 19 FATHER Myocardial infarction 19 FATHER Parkinson's disease 19 MOTHER Prostate cancer 19 MOTHER (uncle brother of mother) Psychosocial problem 19 FATHER Respiratory disorder 19 FATHER (grandfather) Seizure disorder 19 MOTHER No Family History of: AIDS Abdominal aortic aneurysm Vargas's disease Aphasia Asthma Cancer of mouth Colon cancer Completed stroke Congenital disease Congenital heart disease Cystic fibrosis Deafness or hearing loss Dysphasia Fibrocystic disease of breast Gastroenteritis Infertility Kidney disease Neoplasm Severe allergy Thyroid disease Tuberculosis Visual disorder Review of Systems Constitutional: fever EENTM: no symptoms reported Respiratory: cough, dyspnea on exertion, short of breath Cardiovascular: chest pain Gastrointestinal: abdominal pain; No loss of appetite; nausea, vomiting Genitourinary: no symptoms reported Musculoskeletal: no symptoms reported Skin: no symptoms reported Psychiatric/Neurological: No Symptoms Reported Physical Exam Physical Exam Vital Signs Vital Signs - First Documented 11/21/19 11/21/19 08:37 16:24 Temp 35.8 Pulse 68 Resp 19 B/P (MAP) 162/106 (124) Pulse Ox 95 O2 Delivery Room Air O2 Flow Rate 1.00 Capillary Refill : Less Than 3 Seconds Height, Weight, BMI Height: 5'0.00" Weight: 258lbs. 2.0oz. 117.431819il; 46.00 BMI Method:Stated General Appearance: Chronically ill, Obese HEENT: Moist Mucous Membranes; No Scleral Icterus (L), No Scleral Icterus (R) Neck: Normal Inspection, Supple; No Thyromegaly Respiratory: No Accessory Muscle Use, No Respiratory Distress, Wheezing Cardiovascular: Regular Rate, Rhythm, No Murmur Gastrointestinal: Normal Bowel Sounds, Soft; No Guarding, No Rebound; Tenderness (mild, diffuse) Extremity: No Calf Tenderness, No Pedal Edema Neurologic/Psychiatric: Alert, Oriented x3 Results Results/Procedures Labs Laboratory Tests 11/21/19 08:49 11/22/19 03:29 Patient resulted labs reviewed. Imaging: Reviewed Imaging Report Imaging Date of Exam:11/21/19 CT ANGIO CHEST W PROCEDURE: CT angiography of the chest with contrast. TECHNIQUE: Multiple contiguous axial images were obtained through the chest after uneventful bolus administration of intravenous contrast. 3D reconstructed CTA MIP acquisitions were also performed. Auto Exposure Controls were utilized during the CT exam to meet ALARA standards for radiation dose reduction. INDICATION: Shortness of breath and pneumonia. FINDINGS: There are patchy bilateral groundglass infiltrates. There is no pleural effusion. There is no pericardial fluid. Heart size is normal. Thoracic aorta is normal in caliber. There is no pneumothorax. There is no pathologically enlarged adenopathy in the chest. The visualized intra-abdominal structures are unremarkable. There are no filling defects seen within the pulmonary arteries to suggest pulmonary embolism. IMPRESSION: Patchy bilateral groundglass infiltrates most suspect for pneumonia particularly viral. Recommend clinical correlation. No evidence of aortic dissection or pulmonary embolism. Assessment/Plan Admission Diagnosis CAP Admission Status: Inpatient Order (span 2 midnights) Reason for Inpatient Admission: failed outpatient management Assessment and Plan CAP COPD Continue abx COVID19 testing pending Will get other COVID labs On Room air Continue Rocephin and Azithromycin EKG down and QTC 450, will need to monitor closely if needs plaquenil Await cultures MDIs only until COVID testing back Abdominal pain Reports similar to previous episode sof pancreatitis Lipase ordered Morphine for pain Surgery consulted, appreciate recs Diagnosis/Problems Diagnosis/Problems (1) Bilateral pneumonia Status: Acute Qualifiers: Pneumonia type: due to unspecified organism Lung location: unspecified part of lung Qualified Codes: J18.9 - Pneumonia, unspecified organism DALLIN COMBS MD Nov 21, 2019 12:40
[2019-11-21] MEDS ORDERED: morphine INJ 4 MG/ML 1 ML (VIAL/SYRINGE) IVP PRN (12:45)
[2019-11-21 13:15] VITALS: BP 191/91
[2019-11-21] MEDS: NITROGLYCERIN 2% OINT 1 GM UNIT DOSE PACKET TOP SCH ×3 (13:40→23:57)
[2019-11-21] MEDS: ONDANSETRON 4 MG/2 ML (SDV) Z0FRAN IVP PRN (13:51)
[2019-11-21] MEDS: fentaNYL INJECTION 100 MCG/2 ML AMP IVP PRN (14:30)
[2019-11-21] MEDS ORDERED: ANTACID SUSP 30 ML UDC (MYLANTA) PO PRN (14:30)
[2019-11-21] MEDS: LORazepam INJ 2 MG/ML (ATIVAN) VIAL IVP PRN (15:07)
[2019-11-21 16:24] VITALS: BP 166/89
[2019-11-21] MEDS: morphine INJ 4 MG/ML 1 ML (VIAL/SYRINGE) IVP PRN ×3 (16:25→23:57)
--- NOTE | 2019-11-21 16:30 | CONSULTATION REPORT ---
DATE OF SERVICE: ADMITTING PHYSICIAN: Dr. Combs. ATTENDING PRIMARY CARE PHYSICIAN: Eliot Gong DO. HISTORY OF PRESENT ILLNESS: The patient is a 49-year-old female, who presented to the Emergency Department with shortness of breath and intermittent abdominal pain, which appears to be more chronic A CT scan of the chest was performed, which did show likely bilateral pneumonia of viral etiology. She does have a history of constipation and is on a number of different pain medications as well as illicit drugs. She reports that she does have some crampy abdominal pain, which most likely indicates constipation. She has had a history of pancreatitis; however, her pancreatic enzymes are normal as well as her liver function enzymes. A diagnostic imaging was not performed due to her potential risk of coronavirus 19. Goal is to manage her conservatively. PAST MEDICAL HISTORY: Asthma, COPD, pulmonary embolism, hypertension, history of migraine, seizure disorder, history of nephrolithiasis, chronic urinary tract infection, degenerative joint disease, fibromyalgia, anxiety, depression. PAST SURGICAL HISTORY: Laparoscopic cholecystectomy, hysterectomy, tubal ligation, orthopedic procedure, eye surgery. ALLERGIES: No known drug allergies. MEDICATIONS: Albuterol q.4 hours p.r.n., alprazolam 1 mg b.i.d., amitriptyline 25 mg daily, amlodipine 10 mg daily, azithromycin 250 mg daily, benzonatate 100 mg daily, cefdinir 300 mg daily, cyclobenzaprine 10 mg daily, doxycycline 100 mg b.i.d., duloxetine 30 mg daily, famotidine 20 mg b.i.d., gabapentin 300 mg b.i.d., lisinopril 20 mg daily, prednisone 40 mg daily, promethazine p.r.n., quetiapine 100 mg daily. SOCIAL HISTORY: Previous smoker, quit 2017, 40 pack years. She does drink alcohol daily. Previous history of illicit drugs including THC, methamphetamine as well as opioids. FAMILY HISTORY: Mother diabetes and Alzheimer's. Father, cardiovascular disease, hypertension. VITAL SIGNS: Temperature 36.8, blood pressure 191/91, pulse 72, respirations 22 with a pulse ox of 96% on room air. REVIEW OF SYSTEMS: A well-nourished, obese female, currently in no acute distress. She does report that she has had crampy abdominal pain in the past as well. She also has been having worsening shortness of breath at home as well as a nonproductive cough. No nausea, vomiting, no diarrhea, constipation, no red blood per rectum, no dark tarry stools. No fever, chills, no recent inadvertent weight loss. All other review of systems negative. PHYSICAL EXAMINATION: CHEST: Scattered wheezes and rhonchi bilaterally. HEART: Regular, no murmurs. EXTREMITIES: +1/3 bilateral lower extremity edema, negative Homans sign. HEENT: No scleral icterus. NECK: No cervical lymphadenopathy. ABDOMEN: Soft, nondistended. There is mild discomfort in the left lateral and lower abdominal quadrant upon palpation. No palpable masses. No peritoneal signs. SKIN: Warm, dry. LABORATORY DATA: WBC 13.3, hemoglobin 14.9, hematocrit 44, platelets 228. Liver function enzymes as well as lipase is normal. ASSESSMENT AND PLAN: A 49-year-old female admitted for bilateral pneumonia and is being treated appropriately; however, we were consulted for abdominal pain, which is most likely related to constipation. We will treat her as if she does have constipation and add MiraLax on a b.i.d. basis. We want to risk potential exposure to other staff members and will not order any diagnostic imaging unless her condition changes. Job ID: [id number] DocumentID: [id number] Dictated Date: 11/21/2019 16:13:38 Extension Course Coordinator Date: 11/21/2019 16:29:41 Dictated By: CAITLYN SALGADO MD
[2019-11-21] MEDS ORDERED: polyethylene glycoL POWDER 17 GM (MIRALAX) PACK ONE (19:26)
[2019-11-21] MEDS: polyethylene glycoL POWDER 17 GM (MIRALAX) PACK PO SCH (19:41)
[2019-11-21 19:51] VITALS: BP 175/92
[2019-11-22] VITALS (7 sets, daily range): BP systolic 128–158; BP diastolic 79–88
[2019-11-22] MEDS: ACETAMINOPHEN 500 MG TAB (TYLENOL) PO PRN ×2 (03:44→21:37)
[2019-11-22] MEDS: morphine INJ 4 MG/ML 1 ML (VIAL/SYRINGE) IVP PRN ×4 (03:44→20:44)
[2019-11-22] MEDS: LACTATED RINGERS 1,000 ML IV SCH ×3 (04:30→18:23)
[2019-11-22 05:23] LABS: BASOPHILS % (AUTO) 0 % (0-10); EOSINOPHILS % (AUTO) 0 % (0-10); HEMATOCRIT 37 % (35-52); HEMOGLOBIN 12.2 G/DL (11.5-16.0); LYMPHOCYTES # (AUTO) 1.9 X 10^3 (1.0-4.0); LYMPHOCYTES % (AUTO) 18 % (12-44); MEAN CORPUSCULAR HEMOGLOBIN 29 PG (25-34); MEAN CORPUSCULAR HGB CONC 33 G/DL (32-36); MEAN CORPUSCULAR VOLUME 88 FL (80-99); MEAN PLATELET VOLUME 11.2 FL (7.4-10.4); MONOCYTES # (AUTO) 0.3 X 10^3 (0.0-1.0); MONOCYTES % (AUTO) 3 % (0-12); NEUTROPHILS # (AUTO) 8.4 X 10^3 (1.8-7.8); NEUTROPHILS % (AUTO) 79 % (42-75); PLATELET COUNT 215 10^3/uL (130-400); RED CELL DISTRIBUTION WIDTH 14.9 % (10.0-14.5); WHITE BLOOD COUNT 10.6 10^3/uL (4.3-11.0)
[2019-11-22 05:54] LABS: ALANINE AMINOTRANSFERASE 22 U/L (0-55); ALKALINE PHOSPHATASE 95 U/L (40-136); BILIRUBIN,TOTAL 0.3 MG/DL (0.1-1.0); BUN/CREATININE RATIO 21; CALCIUM 8.5 MG/DL (8.5-10.1); CARBON DIOXIDE 24 MMOL/L (21-32); CHLORIDE 105 MMOL/L (98-107); CREATININE SERUM 0.57 MG/DL (0.60-1.30); GFR ESTIMATED > 60; GLUCOSE 86 MG/DL (70-105); POTASSIUM 3.7 MMOL/L (3.6-5.0); SODIUM 140 MMOL/L (135-145); TOTAL PROTEIN 6.1 GM/DL (6.4-8.2)
[2019-11-22] MEDS: NITROGLYCERIN 2% OINT 1 GM UNIT DOSE PACKET TOP SCH ×3 (06:00→18:23)
[2019-11-22] MEDS: polyethylene glycoL POWDER 17 GM (MIRALAX) PACK PO SCH ×2 (07:59→20:43)
[2019-11-22] MEDS: AZITHROMYCIN 250 MG TAB (ZITHROMAX) PO SCH (07:59)
[2019-11-22] MEDS: fentaNYL INJECTION 100 MCG/2 ML AMP IVP PRN (08:12)
[2019-11-22] MEDS: LORazepam INJ 2 MG/ML (ATIVAN) VIAL IVP PRN ×2 (08:35→15:37)
[2019-11-22] MEDS ORDERED: AZITHROMYCIN INJECTION 500 MG in NS (IVPB) 250 ML IV SCH (09:00)
[2019-11-22] MEDS: cefTRIAXone FOR IV USE 1,000 MG in WATER (STERILE) FOR INJECTION 10 ML IV SCH (10:17)
--- NOTE | 2019-11-22 11:42 | Progress Note ---
Subjective Date Seen by a Provider: Nov 22, 2019 Time Seen by a Provider: 10:50 Subjective/Events-last exam Patient seen with Dr. Dumont. Patient reports still having abdominal pain that is more in the upper mid-abdominal area with some nausea, but no vomiting since last night. Tolerating clear liquids. No BM yet. Focused Exam Lactate Level 11/21/19 08:49: Lactic Acid Level 1.29 Objective Exam Vital Signs Date Time Temp Pulse Resp B/P (MAP) Pulse Ox O2 Delivery O2 Flow Rate FiO2 11/22/19 08:27 37.0 74 20 154/79 (104) 90 Nasal Cannula 3.00 11/22/19 08:00 Nasal Cannula 3.00 11/22/19 07:00 57 11/22/19 04:14 36.8 11/22/19 03:39 36.8 70 20 142/83 (102) 94 Nasal Cannula 2.00 11/22/19 01:00 63 11/22/19 00:01 36.8 67 20 133/85 (101) 94 Nasal Cannula 2.00 11/21/19 19:55 Nasal Cannula 2.00 11/21/19 19:51 36.7 65 20 175/92 (119) 94 Nasal Cannula 2.00 11/21/19 19:00 66 11/21/19 16:24 36.8 67 20 166/89 (114) 93 Nasal Cannula 1.00 11/21/19 14:05 72 11/21/19 13:15 191/91 (124) 11/21/19 12:10 96 Room Air 11/21/19 12:10 36.8 65 22 184/114 (137) 96 Room Air 11/21/19 12:10 36.8 65 22 184/114 96 Room Air 11/21/19 11:47 67 20 185/135 94 Room Air I & O 11/22/19 07:00 Intake Total 3470 ml Output Total 0 ml Balance 3470 ml Capillary Refill : Less Than 3 Seconds General Appearance: No Apparent Distress, WD/WN Neck: Full Range of Motion, Normal Inspection, Supple Respiratory: No Accessory Muscle Use, No Respiratory Distress Cardiovascular: Regular Rate, Rhythm, No Edema Gastrointestinal: soft, tenderness Extremity: Normal Capillary Refill, Normal Inspection, Normal Range of Motion Neurologic/Psychiatric: Alert, Oriented x3 Skin: Normal Color, Warm/Dry Results Lab Laboratory Tests 11/22/19 03:29: White Blood Count 10.6, Red Blood Count 4.20L, Hemoglobin 12.2, Hematocrit 37, Mean Corpuscular Volume 88, Mean Corpuscular Hemoglobin 29, Mean Corpuscular Hemoglobin Concent 33, Red Cell Distribution Width 14.9H, Platelet Count 215, Mean Platelet Volume 11.2H, Neutrophils (%) (Auto) 79H, Lymphocytes (%) (Auto) 18, Monocytes (%) (Auto) 3, Eosinophils (%) (Auto) 0, Basophils (%) (Auto) 0, Neutrophils # (Auto) 8.4H, Lymphocytes # (Auto) 1.9, Monocytes # (Auto) 0.3, Eosinophils # (Auto) 0.0, Basophils # (Auto) 0.0, Sodium Level 140, Potassium Level 3.7, Chloride Level 105, Carbon Dioxide Level 24, Anion Gap 11, Blood Urea Nitrogen 12, Creatinine 0.57L, Estimat Glomerular Filtration Rate > 60, BUN/Creatinine Ratio 21, Glucose Level 86, Calcium Level 8.5, Corrected Calcium 9.3, Total Bilirubin 0.3, Aspartate Amino Transf (AST/SGOT) 25, Alanine Aminotransferase (ALT/SGPT) 22, Alkaline Phosphatase 95, Total Protein 6.1L, Albumin 3.0L Assessment/Plan Assessment/Plan Assess & Plan/Chief Complaint A 49-year-old female with bilateral pneumonia and abdominal pain most likely related to constipation. VSS WBC 10.6 Continue with conservative medical management at this time Miralax BID Clear liquid diet IV fluids, abx, pain and nausea meds Pending COVID-19 test Clinical Quality Measures DVT/VTE Risk/Contraindication: Risk Factor Score Per Nursin RFS Level Per Nursing on Admit: 4+=Very High KADEN FRANZ COLOR MATCHER Nov 22, 2019 11:42
[2019-11-22] MEDS: HYDROcodone/APAP 7.5 MG/325 MG (LORTAB, LORCET PLUS) TABLET PO PRN ×2 (11:45→15:38)
[2019-11-22] MEDS ORDERED: BENZONATATE 100 MG (TESSALON) CAPSULE PO ONE (12:01)
[2019-11-22] MEDS: BENZONATATE 100 MG (TESSALON) CAPSULE PO PRN (12:05)
[2019-11-22] MEDS ORDERED: FLUO40CA12 PO ×2 (12:36→12:37)
--- NOTE | 2019-11-22 12:55 | Progress Note - Hospitalist ---
Subjective HPI/CC On Admission Date Seen by Provider: Nov 22, 2019 Time Seen by Provider: 12:52 Subjective/Events-last exam Pt reports persist abdominal pain. Just took her pain medicine but not improving. Focused Exam Lactate Level 11/21/19 08:49: Lactic Acid Level 1.29 Objective Exam Vital Signs Vital Signs Date Time Temp Pulse Resp B/P (MAP) Pulse Ox O2 Delivery O2 Flow Rate FiO2 11/22/19 11:52 37.2 69 22 155/85 (108) 91 Nasal Cannula 3.00 Capillary Refill : Less Than 3 Seconds General Appearance: No Apparent Distress, Chronically ill, Obese Respiratory: Lungs Clear, No Respiratory Distress Cardiovascular: Regular Rate, Rhythm, No Murmur Gastrointestinal: Normal Bowel Sounds, Non Tender, Soft Neurologic/Psychiatric: Alert, Oriented x3 Results/Procedures Lab Laboratory Tests 11/22/19 03:29 Patient resulted labs reviewed. Imaging: Reviewed Imaging Report Assessment/Plan Assessment and Plan Assess & Plan/Chief Complaint CAP COPD Continue abx COVID19 testing pending On Room air Continue Rocephin and Azithromycin EKG down and QTC 450, will need to monitor closely if needs Plaquenil Await cultures MDIs only until COVID testing back Abdominal pain Constipation Reports similar to previous episodes of pancreatitis Lipase normal Lortab, Morphine for pain Surgery consulted, appreciate recs HTN Depression Anxiety Continue home meds Diagnosis/Problems Diagnosis/Problems (1) Bilateral pneumonia Status: Acute Qualifiers: Pneumonia type: due to unspecified organism Lung location: unspecified part of lung Qualified Codes: J18.9 - Pneumonia, unspecified organism Clinical Quality Measures DVT/VTE Risk/Contraindication: Risk Factor Score Per Nursin RFS Level Per Nursing on Admit: 4+=Very High DALLIN WIGGINS MD Nov 22, 2019 12:55
--- NOTE | 2019-11-22 14:00 | NUR ---
O2 ON PER NC AT 2 LITERS, FREQUENT COUGH, NON PRODUCTIVE, O2 SAT 90 PERCENT, WALKED TO BATHROOM, SOB WITH EXERTION, O2 RATE INCREASED TO 3 LITERS, C/O ABD PAIN, DR SALGADO INFORMED, PRN PAIN MEDS, CALL LIGHT WITHIN REACH. ENCOURAGED PATIENT TO SIT UP IN CHAIR
[2019-11-22] MEDS: CYCLOBENZAPRINE 10 MG (FLEXERIL) TAB PO PRN (15:43)
[2019-11-22] MEDS: ONDANSETRON 4 MG/2 ML (SDV) Z0FRAN IVP PRN (15:43)
[2019-11-22] MEDS: ALPRAZolam 1 MG (XANAX) TAB PO SCH ×2 (19:48→19:52)
--- NOTE | 2019-11-22 19:54 | NUR ---
Notified Dr. Combs at this time pt sat 88% on 4 L NC and sounds wheezy. Received order for MAT protocol and prednisone.
[2019-11-22] MEDS ORDERED: RT-ALBUTEROL/IPRATROPIUM 3 ML (DUONEB) VIAL ONE (19:55)
[2019-11-22] MEDS ORDERED: predniSONE 20 MG TAB PO ONE (20:00)
[2019-11-22] MEDS ORDERED: RT-ALBUTEROL/IPRATROPIUM 3 ML (DUONEB) VIAL INH PRN (20:00)
--- NOTE | 2019-11-22 20:17 | NUR ---
Mat Score of 6 Duoneb Q4 and Q2PRN Monitor and Reassess Q72HRs and PRN O2 as needed to keep SpO2-90%-96% Addendum: 11/22/19 at 2017 by SHELLEY CONTRERAS RT Amended: Links added.
[2019-11-22] MEDS: QUEtiapine 100 MG (SEROquel) TAB IMMEDIATE RELEASE PO SCH (20:43)
[2019-11-22] MEDS: FAMOTIDINE 20 MG (PEPCID) TABLET PO SCH (20:43)
[2019-11-22] MEDS: AMITRIPTYLINE 25 MG (ELAVIL) TAB PO SCH (20:43)
[2019-11-22] MEDS: GABAPENTIN 300 MG (NEURONTIN) CAP PO SCH (20:43)
--- NOTE | 2019-11-22 21:14 | NUR ---
Notified Dr. Combs at this time pt's respiratory rate of 34 and sounding course after duoneb treatment. Received order for stat chest x-ray and ABG. Will continue to closely monitor pt.
[2019-11-22 21:38] LABS: ABG BASE EXCESS 3.5 MMOL/L (-2.5-2.5); ABG OXYGEN SATURATION 92 % (94-100); ABG PCO2 50 MMHG (35-45); ABG PH 7.38 (7.37-7.43); ABG PO2 70 MMHG (79-93); ABG TCO2 29.4 MMOL/L (21.0-31.0)
[2019-11-22 21:40] LABS: ALLENS TEST POSITIVE; INSPIRED O2 4; PATIENT TEMP 38.4; VENTILATOR NO
--- NOTE | 2019-11-22 21:52 | NUR ---
Notified Dr. Combs of ABG result. Still waiting chest x-ray.
[2019-11-22] MEDS ORDERED: FUROSEMIDE 40 MG/4 ML INJ (LASIX) ONE (21:57)
--- NOTE | 2019-11-22 21:58 | NUR ---
received order 20 lasix and stop IV fluids from Dr. Combs.
[2019-11-22] MEDS ORDERED: FUROSEMIDE 40 MG/4 ML INJ (LASIX) IVP ONE (22:00)
--- NOTE | 2019-11-22 22:09 | Diagnostic Imaging Report ---
EXAMINATION: Chest 1 view HISTORY: Shortness of breath. Cough and congestion. COMPARISON: CTA chest on 11/21/2019. Chest radiograph on 11/21/2019. FINDINGS: There is interval increase in patchy opacities throughout the lungs. No large pleural effusion or pneumothorax. Stable cardiac silhouette. No acute osseous abnormalities. IMPRESSION: 1. Increasing patchy opacities throughout the lungs, concerning for infectious etiology. No pleural effusion is seen. Dictated by: Dictated on workstation # [id number]
[2019-11-22] MEDS: RT-ALBUTEROL/IPRATROPIUM 3 ML (DUONEB) VIAL INH SCH (22:22)
[2019-11-23] MEDS: NITROGLYCERIN 2% OINT 1 GM UNIT DOSE PACKET TOP SCH ×5 (00:46→23:35)
[2019-11-23] MEDS: RT-ALBUTEROL/IPRATROPIUM 3 ML (DUONEB) VIAL INH SCH ×6 (02:23→21:51)
[2019-11-23 04:39] VITALS: BP 165/95
[2019-11-23] MEDS: BENZONATATE 100 MG (TESSALON) CAPSULE PO PRN ×3 (05:47→20:03)
[2019-11-23] MEDS: ACETAMINOPHEN 500 MG TAB (TYLENOL) PO PRN (05:47)
[2019-11-23] MEDS: predniSONE 20 MG TAB PO SCH (05:47)
--- NOTE | 2019-11-23 06:58 | Pulmonary Consultation ---
History of Present Illness History of Present Illness Date Seen by Provider: Nov 23, 2019 Time Seen by Provider: 06:52 Date of Admission History of Present Illness 49yo with hx of PE, COPD, pancreatitis presented to ED secondary to worsening SOB and n/v, abdominal pain. She has had multiple ED visits. She had a previous negative COVID test. Repeat COVID is also negative. I am consulted for pulmonary management. Allergies and Home Medications Allergies Coded Allergies: No Known Drug Allergies (Unverified , 04/03/18) Home Medications Albuterol Sulfate 1 Puff Puff, 2 PUFF IH Q4H PRN for WHEEZING 1 PUFF = 90 MCG Prescribed by: EL BYRNES on 11/18/19 1700 Albuterol Sulfate 2.5 Mg/3 Ml Vial.neb, 2.5 MG INH Q4H PRN for WHEEZING Prescribed by: DOMINGO NOBLES on 11/20/19 0832 Alprazolam 0.5 Mg Tablet, 0.5 MG PO BID PRN for ANXIETY, (Reported) Amitriptyline HCl 25 Mg Tablet, 25 MG PO HS, (Reported) Amlodipine Besylate 10 Mg Tablet, 10 MG PO DAILY, (Reported) LAST FILLED 09-22-2019 #30/30 DAYS SUPPLY Azithromycin 250 Mg Tablet, 250 MG PO UD TAKE 2 TABLETS ON DAY ONE THEN TAKE 1 TABLET DAILY FOR FOUR MORE DAYS Prescribed by: DOMINGO NOBLES on 11/20/19 0835 Cefdinir 300 Mg Capsule, 300 MG PO BID Prescribed by: DOMINGO NOBLES on 11/20/19 0832 Cyclobenzaprine HCl 10 Mg Tablet, 10 MG PO BID PRN for MUSCLE SPASMS, (Reported) Diphenhydramine HCl 25 Mg Capsule, 75 MG PO HS PRN for SLEEP, (Reported) TAKES 3 (25MG) CAPSULES Famotidine 20 Mg Tablet, 20 MG PO BID Prescribed by: DOMINGO NOBLES on 05/15/19 1101 Fluoxetine HCl 40 Mg Capsule, 40 MG PO DAILY, (Reported) Gabapentin 300 Mg Capsule, 300 MG PO BID PRN for PAIN, (Reported) Lisinopril 20 Mg Tablet, 20 MG PO DAILY, (Reported) LAST FILLED 09-22-2019 #30/30 DAYS SUPPLY Prednisone 20 Mg Tab, 40 MG PO DAILY Prescribed by: JAMES DIA on 05/06/19 1244 Promethazine HCl/Codeine 5 Ml Syrup, 5 ML PO Q6H PRN for COUGH Prescribed by: DOMINGO NOBLES on 11/20/19 0833 Quetiapine Fumarate 100 Mg Tablet, 100 MG PO HS PRN for SLEEP, (Reported) LAST FILLED 09-18-2019 #14 Past Qzaqpvg-Dnozkb-Kmpsih Hx Past Med/Social Hx: Reviewed Nursing Past Med/Soc Hx Patient Social History Alcohol Use: Denies Use Number of Drinks Today: FF Alcohol Beverage of Choice: Vodka Recreational Drug Use: Yes Drug of Choice: HX OF MJ , METH, THC, PILLS--POLYSUBSTANCES-OPIATES/BENZO'S ESPECIALLY Smoking Status: Former Smoker Type Used: Cigarettes Former Smoker, Quit: December 24, 2016 2nd Hand Smoke Exposure: Yes Recent Foreign Travel: No Contact w/Someone Who Travel: No Recent Infectious Disease Expo: No Recent Hopitalizations: No Immunizations Up To Date Tetanus Booster (TDap): Unknown Date of Pneumonia Vaccine: Apr 26, 2015 Date of Influenza Vaccine: Sep 22, 2019 Seasonal Allergies Seasonal Allergies: No Past Medical History Surgeries: Yes Eye Surgery, Gallbladder, Hysterectomy, Orthopedic, Renal, Tubal Ligation Respiratory: Yes Pneumonia, Chronic Bronchitis, Pulmonary Embolism Currently Using CPAP: No Currently Using BIPAP: No Cardiac: Yes Hypertension Neurological: Yes ("PSEUDO SEIZURES") Headaches /Migraines, Seizure Disorder : No 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 Disorders: No Female 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 Disorders: Denies 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 EXTENSIVE DENTAL CARIES/LEGALLY BLIND) Loss of Vision: Bilateral Cancer: No Psychosocial: Yes (POLYSUBSTANCE ABUSE, OVERDOSES ) Pseudo Seizures, Sleep Difficulties, Anxiety, Suicide Attempts, Depression Integumentary: No Blood Disorders: No Family Medical History Reviewed Nursing Family Hx Alcoholism 19 FATHER (grandfather) Alzheimer's disease 19 MOTHER (grandmother) Arthritis 19 FATHER Cardiovascular disease 19 FATHER 19 MOTHER Cataracts 19 MOTHER Coronary thrombosis 19 FATHER Dementia 19 MOTHER (grandparents) Diabetes mellitus 19 MOTHER Drug abuse 19 FATHER Glaucoma 19 FATHER (grandfather) Headache disorder 19 FATHER Hypercholesterolemia 19 FATHER Hypertension 19 FATHER Myocardial infarction 19 FATHER Parkinson's disease 19 MOTHER Prostate cancer 19 MOTHER (uncle brother of mother) Psychosocial problem 19 FATHER Respiratory disorder 19 FATHER (grandfather) Seizure disorder 19 MOTHER No Family History of: AIDS Abdominal aortic aneurysm Vargas's disease Aphasia Asthma Cancer of mouth Colon cancer Completed stroke Congenital disease Congenital heart disease Cystic fibrosis Deafness or hearing loss Dysphasia Fibrocystic disease of breast Gastroenteritis Infertility Kidney disease Neoplasm Severe allergy Thyroid disease Tuberculosis Visual disorder Review of Systems Time Seen by Provider: 07:05 Constitutional: Fever, Chills, Sweats, Weakness, Malaise, Other Eyes: No: Pain, Vision change, Conjunctivae inflammation, Eyelid inflammation, Other, Redness ENT: Nose congestion; No: Ear pain, Ear discharge, Nose pain, Nose discharge, Mouth pain, Mouth swelling, Throat pain, Throat swelling, Other Respiratory: Cough, Dry, Shortness of breath, SOB with excertion, Wheezing; No: Hemoptysis Cardiovascular: Palpitations, Paroxysmal Noc. Dyspnea Gastrointestinal: Nausea, Vomiting, Abdominal Pain, Constipation Sepsis Event Evaluation Height, Weight, BMI Height: 5'0.00" Weight: 258lbs. 2.0oz. 117.238421ga; 47.86 BMI Method:Stated Exam Exam Vital Signs Date Time Temp Pulse Resp B/P (MAP) Pulse Ox O2 Delivery O2 Flow Rate FiO2 11/23/19 04:39 37.7 76 24 165/95 (118) 91 Nasal Cannula 3.50 11/23/19 02:23 93 Nasal Cannula 3.50 11/23/19 01:00 70 11/22/19 23:45 37.7 77 28 128/85 (99) 90 Nasal Cannula 3.50 11/22/19 22:23 91 Nasal Cannula 3.50 11/22/19 22:11 38.0 11/22/19 22:07 38.0 11/22/19 21:37 38.4 11/22/19 21:37 38.4 11/22/19 20:43 37.5 83 20 145/88 (107) 93 Nasal Cannula 4.00 11/22/19 20:06 85 90 11/22/19 20:02 90 Nasal Cannula 3.50 11/22/19 19:56 91 Nasal Cannula 4.00 11/22/19 19:00 81 11/22/19 16:21 37.0 70 22 158/82 (107) 91 Nasal Cannula 3.00 11/22/19 13:00 73 11/22/19 11:52 37.2 69 22 155/85 (108) 91 Nasal Cannula 3.00 11/22/19 08:27 37.0 74 20 154/79 (104) 90 Nasal Cannula 3.00 11/22/19 08:00 Nasal Cannula 3.00 11/22/19 07:00 57 I & O 11/23/19 07:00 Intake Total 2660 ml Output Total 2700 ml Balance -40 ml Height & Weight Height: 5'0.00" Weight: 258lbs. 2.0oz. 117.048740cr; 47.86 BMI Method:Stated General Appearance: Chronically ill, Obese HEENT: Moist Mucous Membranes; No Scleral Icterus (L), No Scleral Icterus (R) Neck: Normal Inspection, Supple; No Thyromegaly Respiratory: No Accessory Muscle Use, No Respiratory Distress, Wheezing Cardiovascular: Regular Rate, Rhythm, No Murmur Capillary Refill: Less Than 3 Seconds Gastrointestinal: soft, tenderness Extremity: No Calf Tenderness, No Pedal Edema Neurologic/Psychiatric: Alert, Oriented x3 Skin: Normal Color, Warm/Dry Results Lab Laboratory Tests 11/21/19 08:49 11/22/19 03:29 Assessment/Plan Assessment/Plan CAP bilateral -COVID is negative -Rocephin and Azithromycin -Repeat PCT -Influenza negative 11/19 -Check respiratory viral panel -Check urine strep and legionella ag COPDAE -Albuterol -Advair Marijuanna use -Education Hx of methamphetamine use Abdominal pain Constipation Surgery consulted HTN Depression Anxiety Continue home meds BHARGAV ROUSSEAU DO Nov 23, 2019 06:58
[2019-11-23 07:37] VITALS: BP 162/93
[2019-11-23 08:02] LABS: BASOPHILS % (AUTO) 0 % (0-10); EOSINOPHILS % (AUTO) 0 % (0-10); HEMATOCRIT 38 % (35-52); HEMOGLOBIN 12.4 G/DL (11.5-16.0); LYMPHOCYTES # (AUTO) 1.5 X 10^3 (1.0-4.0); LYMPHOCYTES % (AUTO) 14 % (12-44); MEAN CORPUSCULAR HEMOGLOBIN 29 PG (25-34); MEAN CORPUSCULAR HGB CONC 33 G/DL (32-36); MEAN CORPUSCULAR VOLUME 88 FL (80-99); MEAN PLATELET VOLUME 10.8 FL (7.4-10.4); MONOCYTES # (AUTO) 0.4 X 10^3 (0.0-1.0); MONOCYTES % (AUTO) 4 % (0-12); NEUTROPHILS # (AUTO) 8.7 X 10^3 (1.8-7.8); NEUTROPHILS % (AUTO) 82 % (42-75); PLATELET COUNT 251 10^3/uL (130-400); RED CELL DISTRIBUTION WIDTH 14.3 % (10.0-14.5); WHITE BLOOD COUNT 10.6 10^3/uL (4.3-11.0)
[2019-11-23] MEDS: morphine INJ 4 MG/ML 1 ML (VIAL/SYRINGE) IVP PRN ×3 (08:24→20:05)
[2019-11-23 08:25] LABS: ALANINE AMINOTRANSFERASE 92 U/L (0-55); ALBUMIN 3.3 GM/DL (3.2-4.5); ALKALINE PHOSPHATASE 119 U/L (40-136); BILIRUBIN,TOTAL 0.4 MG/DL (0.1-1.0); BUN/CREATININE RATIO 13; CARBON DIOXIDE 28 MMOL/L (21-32); CHLORIDE 103 MMOL/L (98-107); GFR ESTIMATED > 60; GLUCOSE 111 MG/DL (70-105); MAGNESIUM 1.8 MG/DL (1.6-2.4); PHOSPHORUS 4.2 MG/DL (2.3-4.7); POTASSIUM 4.1 MMOL/L (3.6-5.0); SODIUM 142 MMOL/L (135-145)
[2019-11-23] MEDS: GABAPENTIN 300 MG (NEURONTIN) CAP PO SCH ×2 (08:43→20:03)
[2019-11-23] MEDS: FAMOTIDINE 20 MG (PEPCID) TABLET PO SCH ×2 (08:43→20:04)
[2019-11-23] MEDS: AZITHROMYCIN 250 MG TAB (ZITHROMAX) PO SCH (08:43)
[2019-11-23] MEDS: amLODIPine 10 MG (NORVASC) TAB PO SCH (08:44)
[2019-11-23] MEDS: lisINopril 20 MG (PRINIVIL) TABLET PO SCH (08:44)
[2019-11-23] MEDS: polyethylene glycoL POWDER 17 GM (MIRALAX) PACK PO SCH ×2 (08:44→21:00)
[2019-11-23] MEDS: ALPRAZolam 1 MG (XANAX) TAB PO SCH ×2 (08:45→20:03)
[2019-11-23] MEDS: FLUoxetine HCL 20 MG (PROzac) CAP PO SCH (08:45)
--- NOTE | 2019-11-23 08:46 | NUR ---
prior to a.m. medications pulse was 75 bpm, resp 24 90% 3.5L b/p was 162/93.
[2019-11-23] MEDS: ADVAIR HFA 115/21 MCG INHALER 8 GM IH SCH ×2 (08:56→20:02)
[2019-11-23] MEDS: cefTRIAXone FOR IV USE 1,000 MG in WATER (STERILE) FOR INJECTION 10 ML IV SCH (10:21)
[2019-11-23] MEDS: HYDROcodone/APAP 7.5 MG/325 MG (LORTAB, LORCET PLUS) TABLET PO PRN ×3 (10:24→23:35)
[2019-11-23] MEDS ORDERED: ALPR0.5T7 PO (11:02)
--- NOTE | 2019-11-23 11:07 | NUR ---
SPOKE WITH THE PT AND WENT THRU THE EXT MED HISTORY TO COMPLETE THE MED REC PT IS PAST DUE ON MOST OF HER MEDICATION- HOWEVER SHE SAYS SHE IS STILL TAKING THEM, I DOCUMENTED THE PAST DUE FILL DATES ON THE MED REC OTC MEDS: BRANDI DUKE
[2019-11-23 11:33] VITALS: BP 146/77
--- NOTE | 2019-11-23 13:47 | Progress Note ---
Subjective Subjective Date Seen by Provider: Nov 23, 2019 Time Seen by Provider: 11:45 No overnight events Pt reports she is in pain (back pain) and asking for more pain medication. -She is having diarrhea today. -afebrile. -normally on room air currently on 3L oxygen xray showing bilateral infiltrate Review of Systems General: No Chills, No Night Sweats HEENT: No Head Aches Cardiovascular: Palpitations, Paroxysmal Noc. Dyspnea Gastrointestinal: Nausea, Vomiting, Abdominal Pain; No: Constipation Neurological: Weakness All Other Systems Reviewed All Other Systems Reviewed: Yes Objective Exam Vital Signs Vital Signs Date Time Temp Pulse Resp B/P (MAP) Pulse Ox O2 Delivery O2 Flow Rate FiO2 11/23/19 12:22 71 11/23/19 11:33 36.9 73 42 146/77 (100) 90 Nasal Cannula 3.50 11/23/19 10:58 94 Nasal Cannula 3.50 11/23/19 08:51 93 Nasal Cannula 3.50 11/23/19 08:00 93 Nasal Cannula 3.50 11/23/19 07:37 37.3 75 24 162/93 (116) 90 Nasal Cannula 3.50 11/23/19 07:00 84 11/23/19 04:39 37.7 76 24 165/95 (118) 91 Nasal Cannula 3.50 11/23/19 02:23 93 Nasal Cannula 3.50 11/23/19 01:00 70 11/22/19 23:45 37.7 77 28 128/85 (99) 90 Nasal Cannula 3.50 11/22/19 22:23 91 Nasal Cannula 3.50 11/22/19 22:11 38.0 11/22/19 22:07 38.0 11/22/19 21:37 38.4 11/22/19 21:37 38.4 11/22/19 20:43 37.5 83 20 145/88 (107) 93 Nasal Cannula 4.00 11/22/19 20:06 85 90 11/22/19 20:02 90 Nasal Cannula 3.50 11/22/19 19:56 91 Nasal Cannula 4.00 11/22/19 19:00 81 11/22/19 16:21 37.0 70 22 158/82 (107) 91 Nasal Cannula 3.00 I & O 11/23/19 07:00 Intake Total 2660 ml Output Total 2700 ml Balance -40 ml General Appearance: Chronically ill, Mild Distress, Obese HEENT: PERRL/EOMI, Moist Mucous Membranes; No Scleral Icterus (L), No Scleral Icterus (R) Neck: Normal Inspection, Supple; No Thyromegaly Respiratory: No Accessory Muscle Use, No Respiratory Distress, Wheezing Cardiovascular: Regular Rate, Rhythm, No Murmur Gastrointestinal: Normal Bowel Sounds, Soft; No Guarding, No Rebound; Tenderness (mild, diffuse) Back: Normal Inspection, No CVA Tenderness, No Vertebral Tenderness Extremity: No Calf Tenderness, No Pedal Edema Neurologic/Psychiatric: Alert, Oriented x3 Skin: Normal Color, Warm/Dry Results Lab Laboratory Tests 11/22/19 21:30: Blood Gas Puncture Site RIGHT RADIAL, Blood Gas Patient Temperature 38.4, Arterial Blood pH 7.38, Arterial Blood Partial Pressure CO2 50H, Arterial Blood Partial Pressure O2 70L, Arterial Blood HCO3 28H, Arterial Blood Total CO2 29.4, Arterial Blood Oxygen Saturation 92L, Arterial Blood Base Excess 3.5H, Don Test POSITIVE, Blood Gas Ventilator Setting NO, Blood Gas Inspired Oxygen 4 11/23/19 07:20: White Blood Count 10.6, Red Blood Count 4.27L, Hemoglobin 12.4, Hematocrit 38, Mean Corpuscular Volume 88, Mean Corpuscular Hemoglobin 29, Mean Corpuscular Hemoglobin Concent 33, Red Cell Distribution Width 14.3, Platelet Count 251, Mean Platelet Volume 10.8H, Neutrophils (%) (Auto) 82H, Lymphocytes (%) (Auto) 14, Monocytes (%) (Auto) 4, Eosinophils (%) (Auto) 0, Basophils (%) (Auto) 0, Neutrophils # (Auto) 8.7H, Lymphocytes # (Auto) 1.5, Monocytes # (Auto) 0.4, Eosinophils # (Auto) 0.0, Basophils # (Auto) 0.0, Sodium Level 142, Potassium Level 4.1, Chloride Level 103, Carbon Dioxide Level 28, Anion Gap 11, Blood Urea Nitrogen 8, Creatinine 0.60, Estimat Glomerular Filtration Rate > 60, BUN/Creatinine Ratio 13, Glucose Level 111H, Calcium Level 9.0, Corrected Calcium 9.6, Phosphorus Level 4.2, Magnesium Level 1.8, Total Bilirubin 0.4, Aspartate Amino Transf (AST/SGOT) 99H, Alanine Aminotransferase (ALT/SGPT) 92H, Alkaline Phosphatase 119, B-Type Natriuretic Peptide 58.5, Total Protein 7.0, Albumin 3.3, Procalcitonin 0.05 Microbiology 11/21/19 Blood Culture - Preliminary, Resulted No growth Assessment/Plan Assessment/Plan Assessment and Plan continue current antibiotics continue respiratory care- Dr Murphy consulted. informed patient her pain will get worse laying in the hospital for days and she needs to get up. We will not be giving her more pain medication. Dispo: goal would be to get her discharged in the next day or 2. Problems: (1) Bilateral pneumonia Qualifiers: Qualified Codes: J18.9 - Pneumonia, unspecified organism (2) Chronic low back pain (3) Hypertension (4) Depression with anxiety Clinical Quality Measures DVT/VTE Risk/Contraindication: Risk Factor Score Per Nursin RFS Level Per Nursing on Admit: 4+=Very High BRYAN DE DIOS MD Nov 23, 2019 13:47
[2019-11-23 14:56] LABS: BILIRUBIN,URINE NEGATIVE (NEGATIVE); CLARITY,URINE CLEAR; COLOR,URINE YELLOW; GLUCOSE, URINE (UA) NEGATIVE (NEGATIVE); KETONES,URINE NEGATIVE (NEGATIVE); LEUKOCYTE ESTERASE ,URINE NEGATIVE (NEGATIVE); NITRITE,URINE NEGATIVE (NEGATIVE); PROTEIN,URINE NEGATIVE (NEGATIVE)
[2019-11-23 15:02] LABS: BACTERIA,URINE NEGATIVE /HPF; SQUAMOUS EPITHELIAL CELL,UR 0-2 /HPF
[2019-11-23 15:43] VITALS: BP 154/98
[2019-11-23] MEDS: CYCLOBENZAPRINE 10 MG (FLEXERIL) TAB PO PRN ×2 (15:52→20:03)
[2019-11-23 20:00] VITALS: BP 123/71
[2019-11-23] MEDS: AMITRIPTYLINE 25 MG (ELAVIL) TAB PO SCH (20:03)
[2019-11-23] MEDS: QUEtiapine 100 MG (SEROquel) TAB IMMEDIATE RELEASE PO SCH (20:04)
[2019-11-23] MEDS: ONDANSETRON 4 MG/2 ML (SDV) Z0FRAN IVP PRN ×2 (20:05→23:35)
[2019-11-23] MEDS: CATHETER FLUSH 10 ML SYR IV PRN (20:09)
[2019-11-23] MEDS: LORazepam INJ 2 MG/ML (ATIVAN) VIAL IVP PRN (20:09)
[2019-11-23 23:36] VITALS: BP 103/67
[2019-11-24] MEDS: morphine INJ 4 MG/ML 1 ML (VIAL/SYRINGE) IVP PRN ×4 (00:40→13:03)
[2019-11-24] MEDS: RT-ALBUTEROL/IPRATROPIUM 3 ML (DUONEB) VIAL INH SCH ×6 (02:12→21:29)
[2019-11-24 04:00] VITALS: BP 133/85
[2019-11-24 04:50] LABS: BASOPHILS % (AUTO) 0 % (0-10); EOSINOPHILS % (AUTO) 0 % (0-10); HEMATOCRIT 36 % (35-52); HEMOGLOBIN 11.6 G/DL (11.5-16.0); LYMPHOCYTES # (AUTO) 2.3 X 10^3 (1.0-4.0); LYMPHOCYTES % (AUTO) 22 % (12-44); MEAN CORPUSCULAR HEMOGLOBIN 29 PG (25-34); MEAN CORPUSCULAR HGB CONC 32 G/DL (32-36); MEAN CORPUSCULAR VOLUME 89 FL (80-99); MEAN PLATELET VOLUME 10.1 FL (7.4-10.4); MONOCYTES # (AUTO) 0.5 X 10^3 (0.0-1.0); MONOCYTES % (AUTO) 5 % (0-12); NEUTROPHILS # (AUTO) 7.8 X 10^3 (1.8-7.8); NEUTROPHILS % (AUTO) 73 % (42-75); PLATELET COUNT 273 10^3/uL (130-400); RED CELL DISTRIBUTION WIDTH 14.4 % (10.0-14.5); WHITE BLOOD COUNT 10.7 10^3/uL (4.3-11.0)
[2019-11-24 05:05] LABS: BUN/CREATININE RATIO 9; CALCIUM 8.9 MG/DL (8.5-10.1); CARBON DIOXIDE 28 MMOL/L (21-32); CHLORIDE 103 MMOL/L (98-107); CREATININE SERUM 0.58 MG/DL (0.60-1.30); GFR ESTIMATED > 60; GLUCOSE 96 MG/DL (70-105); PHOSPHORUS 2.8 MG/DL (2.3-4.7); POTASSIUM 3.4 MMOL/L (3.6-5.0); SODIUM 142 MMOL/L (135-145)
[2019-11-24] MEDS: NITROGLYCERIN 2% OINT 1 GM UNIT DOSE PACKET TOP SCH ×3 (05:20→17:26)
[2019-11-24] MEDS: predniSONE 20 MG TAB PO SCH (05:23)
--- NOTE | 2019-11-24 06:35 | Pulmonary Progress Note ---
Subjective Time Seen by a Provider: 06:30 Subjective/Events-last exam No complications noted. Sepsis Event Evaluation Height, Weight, BMI Height: 5'0.00" Weight: 258lbs. 2.0oz. 117.975563aw; 47.86 BMI Method:Stated Focused Exam Lactate Level 11/21/19 08:49: Lactic Acid Level 1.29 Exam Exam Vital Signs Date Time Temp Pulse Resp B/P (MAP) Pulse Ox O2 Delivery O2 Flow Rate FiO2 11/24/19 05:52 36.7 11/24/19 05:29 36.7 11/24/19 04:00 36.7 73 22 133/85 (101) 95 Nasal Cannula 4.00 11/24/19 02:13 92 Room Air 3.50 11/24/19 01:10 36.8 11/24/19 01:00 72 11/24/19 00:40 36.8 11/24/19 00:05 36.8 11/23/19 23:36 36.8 22 103/67 (79) 95 Nasal Cannula 4.00 11/23/19 23:35 37.8 11/23/19 20:35 37.8 11/23/19 20:05 37.8 11/23/19 20:00 93 Nasal Cannula 4.00 11/23/19 20:00 36.9 74 20 123/71 (88) 93 Nasal Cannula 3.50 11/23/19 19:00 76 11/23/19 18:39 93 Room Air 3.50 11/23/19 15:43 37.8 75 28 154/98 (116) 94 Nasal Cannula 3.50 11/23/19 12:22 71 11/23/19 11:33 36.9 73 42 146/77 (100) 90 Nasal Cannula 3.50 11/23/19 10:58 94 Nasal Cannula 3.50 11/23/19 08:51 93 Nasal Cannula 3.50 11/23/19 08:00 93 Nasal Cannula 3.50 11/23/19 07:37 37.3 75 24 162/93 (116) 90 Nasal Cannula 3.50 11/23/19 07:00 84 I & O 11/24/19 07:00 Intake Total 1800 ml Output Total 400 ml Balance 1400 ml Height & Weight Height: 5'0.00" Weight: 258lbs. 2.0oz. 117.314388cm; 47.86 BMI Method:Stated General Appearance: No Apparent Distress, Chronically ill, Obese HEENT: PERRL/EOMI, Moist Mucous Membranes; No Scleral Icterus (L), No Scleral Icterus (R) Neck: Normal Inspection, Supple; No Thyromegaly Respiratory: No Accessory Muscle Use, No Respiratory Distress, Wheezing Cardiovascular: Regular Rate, Rhythm, No Murmur Capillary Refill: Less Than 3 Seconds Gastrointestinal: soft, tenderness Extremity: No Calf Tenderness, No Pedal Edema Neurologic/Psychiatric: Alert, Oriented x3 Skin: Normal Color, Warm/Dry Results Lab Laboratory Tests 11/23/19 07:20 11/24/19 04:34 Assessment/Plan Assessment/Plan CAP bilateral -COVID is negative -Rocephin and Azithromycin -procalcitonin is neg x 2 however CXR shows extensive bilateral infiltrates -Repeat CXR today -Influenza negative 11/19 - respiratory viral panel - pending -Check urine strep and legionella ag COPDAE -Albuterol -Advair Marijuanna use -Education Hx of methamphetamine use Abdominal pain Constipation Surgery consulted HTN Depression Anxiety Continue home meds BHARGAV ROUSSEAU DO Nov 24, 2019 06:35
[2019-11-24] MEDS ORDERED: methylPREDNISolone 125 MG (Solu-MEDROL) VIAL IVP NR (07:00)
--- NOTE | 2019-11-24 07:17 | Diagnostic Imaging Report ---
EXAM: CHEST 1 VIEW, AP/PA ONLY INDICATION: Cough. Congestion. COMPARISON: 11/22/2019. FINDINGS: Cardiomegaly. Prominence of interstitium with diffuse patchy airspace opacities similar to the prior exam. No pleural effusion or pneumothorax. No acute osseous findings. IMPRESSION: Stable patchy airspace opacities with prominence of interstitium with cardiomegaly. Findings could be due to an infectious/inflammatory process versus edema. Dictated by: Dictated on workstation # [id number]
[2019-11-24] MEDS: BENZONATATE 100 MG (TESSALON) CAPSULE PO PRN (07:52)
[2019-11-24] MEDS: ONDANSETRON 4 MG/2 ML (SDV) Z0FRAN IVP PRN (07:53)
[2019-11-24 08:00] VITALS: BP 145/67
--- NOTE | 2019-11-24 08:04 | Progress Note ---
Subjective Subjective Date Seen by Provider: Nov 24, 2019 Time Seen by Provider: 07:59 No overnight events Pt reports if it wasn't for her abdominal pain and difficulty breathing she would be okay. She is getting morphine iv, hydrocodone (for mod pain) and ativan, xanax as needed for anxiety. Constipation has resolved with miralax- now she has diarrhea and had a couple accidents in her bed. Review of Systems General: No Chills, No Night Sweats HEENT: No Head Aches Pulmonary: Dyspnea Cardiovascular: Palpitations, Paroxysmal Noc. Dyspnea Gastrointestinal: Abdominal Pain; No: Nausea, Vomiting, Constipation Neurological: Weakness All Other Systems Reviewed All Other Systems Reviewed: Yes Objective Exam Vital Signs Vital Signs Date Time Temp Pulse Resp B/P (MAP) Pulse Ox O2 Delivery O2 Flow Rate FiO2 11/24/19 07:00 76 11/24/19 06:49 95 Nasal Cannula 5.00 11/24/19 06:47 95 Nasal Cannula 5.00 11/24/19 05:52 36.7 11/24/19 05:29 36.7 11/24/19 04:00 36.7 73 22 133/85 (101) 95 Nasal Cannula 4.00 11/24/19 02:13 92 Room Air 3.50 11/24/19 01:10 36.8 11/24/19 01:00 72 11/24/19 00:40 36.8 11/24/19 00:05 36.8 11/23/19 23:36 36.8 22 103/67 (79) 95 Nasal Cannula 4.00 11/23/19 23:35 37.8 11/23/19 20:35 37.8 11/23/19 20:05 37.8 11/23/19 20:00 93 Nasal Cannula 4.00 11/23/19 20:00 36.9 74 20 123/71 (88) 93 Nasal Cannula 3.50 11/23/19 19:00 76 11/23/19 18:39 93 Room Air 3.50 11/23/19 15:43 37.8 75 28 154/98 (116) 94 Nasal Cannula 3.50 11/23/19 12:22 71 11/23/19 11:33 36.9 73 42 146/77 (100) 90 Nasal Cannula 3.50 11/23/19 10:58 94 Nasal Cannula 3.50 11/23/19 08:51 93 Nasal Cannula 3.50 I & O 11/24/19 07:00 Intake Total 1800 ml Output Total 400 ml Balance 1400 ml General Appearance: Chronically ill, Obese HEENT: Moist Mucous Membranes; No Scleral Icterus (L), No Scleral Icterus (R); Other (poor dentition) Neck: Normal Inspection, Supple; No Thyromegaly Respiratory: No Accessory Muscle Use, No Respiratory Distress, Wheezing (coarse throughout) Cardiovascular: Regular Rate, Rhythm, No Murmur Gastrointestinal: Normal Bowel Sounds, Soft; No Guarding, No Rebound; Tenderness (mild, diffuse) Back: Normal Inspection, No CVA Tenderness, No Vertebral Tenderness Extremity: No Calf Tenderness, No Pedal Edema Neurologic/Psychiatric: Alert, Oriented x3 Skin: Normal Color, Warm/Dry Results Lab Laboratory Tests 11/23/19 14:40: Urine Color YELLOW, Urine Clarity CLEAR, Urine pH 7.0, Urine Specific Bullard 1.015L, Urine Protein NEGATIVE, Urine Glucose (UA) NEGATIVE, Urine Ketones NEGATIVE, Urine Nitrite NEGATIVE, Urine Bilirubin NEGATIVE, Urine Urobilinogen 0.2, Urine Leukocyte Esterase NEGATIVE, Urine RBC (Auto) NEGATIVE, Urine RBC NONE, Urine WBC NONE, Urine Squamous Epithelial Cells 0-2, Urine Crystals NONE, Urine Bacteria NEGATIVE, Urine Casts NONE, Urine Mucus NEGATIVE, Urine Culture Indicated CULTURE PENDING, Streptococcus pneumoniae Antigen Negative 11/24/19 04:34: White Blood Count 10.7, Red Blood Count 4.05L, Hemoglobin 11.6, Hematocrit 36, Mean Corpuscular Volume 89, Mean Corpuscular Hemoglobin 29, Mean Corpuscular Hemoglobin Concent 32, Red Cell Distribution Width 14.4, Platelet Count 273, Mean Platelet Volume 10.1, Neutrophils (%) (Auto) 73, Lymphocytes (%) (Auto) 22, Monocytes (%) (Auto) 5, Eosinophils (%) (Auto) 0, Basophils (%) (Auto) 0, Neutrophils # (Auto) 7.8, Lymphocytes # (Auto) 2.3, Monocytes # (Auto) 0.5, Eosinophils # (Auto) 0.0, Basophils # (Auto) 0.0, Sodium Level 142, Potassium Level 3.4L, Chloride Level 103, Carbon Dioxide Level 28, Anion Gap 11, Blood Urea Nitrogen 5L, Creatinine 0.58L, Estimat Glomerular Filtration Rate > 60, BUN/Creatinine Ratio 9, Glucose Level 96, Calcium Level 8.9, Phosphorus Level 2.8, Magnesium Level 2.0 Microbiology 11/22/19 Gram Stain - Final, Resulted 11/22/19 Sputum Culture - Preliminary, Resulted Usual upper respiratory stanley 11/21/19 Blood Culture - Preliminary, Resulted No growth Assessment/Plan Assessment/Plan Assessment and Plan Oxygen requirement is up to 5L; she keeps taking the oxygen NC off. Encouraged her to get up and sit in the chair today. continue current antibiotics -procalcitonin level normal. continue respiratory care- Dr Murphy consulted. awaiting viral panel. Dispo: goal would be to get her discharged in the next day or 2 but we need to get her oxygen requirement down. -will give her a dose of lasix and see how this improved her oxygen requirement. Problems: (1) Bilateral pneumonia Qualifiers: Qualified Codes: J18.9 - Pneumonia, unspecified organism (2) Chronic low back pain (3) Hypokalemia Assessment & Plan: replacing (4) Polysubstance abuse (5) Hypertension Qualifiers: Qualified Codes: I10 - Essential (primary) hypertension Assessment & Plan: continue home medications (6) Depression with anxiety Clinical Quality Measures DVT/VTE Risk/Contraindication: Risk Factor Score Per Nursin RFS Level Per Nursing on Admit: 4+=Very High BRYAN DE DIOS MD Nov 24, 2019 08:04
[2019-11-24] MEDS ORDERED: FUROSEMIDE 40 MG/4 ML INJ (LASIX) IVP NR (08:15)
[2019-11-24] MEDS: polyethylene glycoL POWDER 17 GM (MIRALAX) PACK PO SCH ×2 (09:00→19:33)
[2019-11-24] MEDS: amLODIPine 10 MG (NORVASC) TAB PO SCH (09:19)
[2019-11-24] MEDS: GABAPENTIN 300 MG (NEURONTIN) CAP PO SCH ×2 (09:19→19:33)
[2019-11-24] MEDS: lisINopril 20 MG (PRINIVIL) TABLET PO SCH (09:19)
[2019-11-24] MEDS: FAMOTIDINE 20 MG (PEPCID) TABLET PO SCH ×2 (09:19→19:33)
[2019-11-24] MEDS: AZITHROMYCIN 250 MG TAB (ZITHROMAX) PO SCH (09:19)
[2019-11-24] MEDS: ALPRAZolam 1 MG (XANAX) TAB PO SCH (09:19)
[2019-11-24] MEDS: KCL 20 MEQ TAB (K-DUR) PO SCH ×2 (09:20→17:26)
[2019-11-24] MEDS: FLUoxetine HCL 20 MG (PROzac) CAP PO SCH (09:22)
--- NOTE | 2019-11-24 10:02 | NUR ---
PATIENT HOME MED ALPRAZOLAM 0.5MG TAB PO BID (PATIENT HAS BEEN GETTING ALPRAZOLAM 1MG PO BID IN HOUSE) CHANGE ORDER TO ALPRAZOLAM 0.5MG PO BID PER DR. DE DIOS
[2019-11-24] MEDS: HYDROcodone/APAP 7.5 MG/325 MG (LORTAB, LORCET PLUS) TABLET PO PRN ×2 (10:19→15:27)
--- NOTE | 2019-11-24 11:25 | NUR ---
"RD ASSESSMENT PMHx: COPD; PE; HTN; gall bladder disease; Hx of ETOH/Polysubstance(THC, methamphetamine, opiates) use/abuse PT INTERACTION: Pt was awake and pleasant during nutrition assessment. Pt states current appetite is poor and has been this way for about a week. Note avg PO intake 50-75% x3d, per chart review. Pt states following a regular diet at home and has some difficulty chewing as she is missing her upper teeth. Pt states recent issues with nausea/vomiting. Note recent episode of emesis on 11/20, per chart review. Pt states no recent issues with constipation/diarrhea. Note last BM was 11/22, and pt currently on bowel regimen of Miralax BID, per chart review. Pt states recent 25# wt loss x6mon. Note recent 12# wt loss x6mon, per chart review. ABNORMAL NUTRITION-RELATED LAB VALUES LOW: K 3.4; BUN 5; cr 0.58 HIGH: Est. kcal needs: 6782-2371 kcal | 15-18 kcal/kg Est. Pro needs: 86-108 g Pro | 0.8-1.0 g Pro/kg PES STATEMENT: Inadequate oral intake (NI-2.1) related to loss of appetite | nausea | vomiting as evidenced by pt interview | avg PO intake 50-75% x3d INTERVENTION: Continue with current diet order of CHO 60g/m 1snack diet. Encouraged pt to eat when able. Will continue to follow and reassess as pt needs, intake, and status change. MONITOR/EVALUATE: PO Intake; Plan of Care; Hydration Status; Weight Status; Lab Values Katt Rice, MS, RD, LD"
[2019-11-24] MEDS: cefTRIAXone FOR IV USE 1,000 MG in WATER (STERILE) FOR INJECTION 10 ML IV SCH (11:51)
[2019-11-24 12:00] VITALS: BP 138/74
[2019-11-24] MEDS: predniSONE 10 MG TAB PO SCH (13:05)
--- NOTE | 2019-11-24 13:08 | NUR ---
CM/SS: Visited with pt as to plan for discharge Plan: Pt to discharge to home Summary: Pt reports she is doing ok on today. Pt reports that she will be going back to her home after discharge. Pt reports living with her mother along with her sister and helping take care of her mother. Pt also shares she takes care of her granddaughter as well. She has not had oxygen before. She is ok with a local company for oxygen. Pt reports feeling better as she feels as if she can breath. She reports having difficulty with breathing previously. Pt seems ready to be able to return home on tomorrow of the next day.
--- NOTE | 2019-11-24 14:25 | NUR ---
Pastoral care visit.
[2019-11-24] MEDS: LORazepam INJ 2 MG/ML (ATIVAN) VIAL IVP PRN (15:33)
[2019-11-24 16:20] VITALS: BP 124/65
[2019-11-24] MEDS: ADVAIR HFA 115/21 MCG INHALER 8 GM IH SCH (18:15)
[2019-11-24 19:27] VITALS: BP 127/76
[2019-11-24] MEDS: CYCLOBENZAPRINE 10 MG (FLEXERIL) TAB PO PRN (19:32)
[2019-11-24] MEDS: QUEtiapine 100 MG (SEROquel) TAB IMMEDIATE RELEASE PO SCH (19:33)
[2019-11-24] MEDS: ALPRAZolam 0.5 MG (XANAX) TAB PO SCH (19:33)
[2019-11-24] MEDS: AMITRIPTYLINE 25 MG (ELAVIL) TAB PO SCH (19:33)
[2019-11-25] MEDS: NITROGLYCERIN 2% OINT 1 GM UNIT DOSE PACKET TOP SCH ×3 (00:15→11:35)
[2019-11-25 00:17] VITALS: BP 94/64
[2019-11-25] MEDS: RT-ALBUTEROL/IPRATROPIUM 3 ML (DUONEB) VIAL INH SCH ×4 (02:02→14:15)
[2019-11-25 04:16] VITALS: BP 157/72
[2019-11-25] MEDS: morphine INJ 4 MG/ML 1 ML (VIAL/SYRINGE) IVP PRN ×3 (04:16→15:20)
[2019-11-25 05:28] LABS: BASOPHILS % (AUTO) 0 % (0-10); EOSINOPHILS % (AUTO) 0 % (0-10); HEMATOCRIT 38 % (35-52); HEMOGLOBIN 12.3 G/DL (11.5-16.0); LYMPHOCYTES # (AUTO) 1.3 X 10^3 (1.0-4.0); LYMPHOCYTES % (AUTO) 10 % (12-44); MEAN CORPUSCULAR HEMOGLOBIN 29 PG (25-34); MEAN CORPUSCULAR HGB CONC 32 G/DL (32-36); MEAN CORPUSCULAR VOLUME 90 FL (80-99); MEAN PLATELET VOLUME 10.3 FL (7.4-10.4); MONOCYTES # (AUTO) 0.6 X 10^3 (0.0-1.0); MONOCYTES % (AUTO) 5 % (0-12); NEUTROPHILS # (AUTO) 11.4 X 10^3 (1.8-7.8); NEUTROPHILS % (AUTO) 86 % (42-75); PLATELET COUNT 346 10^3/uL (130-400); RED CELL DISTRIBUTION WIDTH 14.3 % (10.0-14.5); WHITE BLOOD COUNT 13.3 10^3/uL (4.3-11.0)
[2019-11-25] MEDS: KCL 20 MEQ TAB (K-DUR) PO SCH (05:46)
[2019-11-25 05:50] LABS: BUN/CREATININE RATIO 14; CALCIUM 9.4 MG/DL (8.5-10.1); CARBON DIOXIDE 30 MMOL/L (21-32); CHLORIDE 99 MMOL/L (98-107); CREATININE SERUM 0.63 MG/DL (0.60-1.30); GFR ESTIMATED > 60; GLUCOSE 131 MG/DL (70-105); MAGNESIUM 1.9 MG/DL (1.6-2.4); PHOSPHORUS 3.5 MG/DL (2.3-4.7); SODIUM 142 MMOL/L (135-145)
--- NOTE | 2019-11-25 06:32 | Pulmonary Progress Note ---
Subjective Date Seen by a Provider: Nov 25, 2019 Time Seen by a Provider: 06:31 Subjective/Events-last exam pt is doing better. Sepsis Event Evaluation Height, Weight, BMI Height: 5'0.00" Weight: 258lbs. 2.0oz. 117.256752ut; 47.86 BMI Method:Stated Exam Exam Vital Signs Date Time Temp Pulse Resp B/P (MAP) Pulse Ox O2 Delivery O2 Flow Rate FiO2 11/25/19 04:16 37.2 69 18 157/72 (100) 93 Nasal Cannula 5.00 11/25/19 01:55 90 Nasal Cannula 4.00 11/25/19 01:00 67 11/25/19 00:17 37.0 63 16 94/64 (74) 93 Nasal Cannula 4.00 11/24/19 21:29 92 Nasal Cannula 4.00 11/24/19 20:00 Nasal Cannula 4.00 11/24/19 19:27 36.4 64 22 127/76 (93) 93 Nasal Cannula 4.00 11/24/19 19:00 75 11/24/19 18:19 95 Nasal Cannula 4.00 11/24/19 18:16 93 Nasal Cannula 5.00 11/24/19 16:20 37.1 70 29 124/65 (84) 96 Nasal Cannula 5.00 11/24/19 16:00 36.5 11/24/19 15:27 36.5 11/24/19 13:33 36.5 11/24/19 12:25 79 11/24/19 12:00 36.5 69 20 138/74 (95) 96 Nasal Cannula 5.00 11/24/19 10:49 36.5 11/24/19 10:06 94 Nasal Cannula 5.00 11/24/19 08:30 36.5 11/24/19 08:00 36.5 74 18 145/67 (93) 92 Nasal Cannula 5.00 11/24/19 08:00 93 Nasal Cannula 4.00 11/24/19 07:53 36.7 11/24/19 07:00 76 11/24/19 06:49 95 Nasal Cannula 5.00 11/24/19 06:47 95 Nasal Cannula 5.00 I & O 11/25/19 07:00 Intake Total 1360 ml Balance 1360 ml Height & Weight Height: 5'0.00" Weight: 258lbs. 2.0oz. 117.531108vs; 47.86 BMI Method:Stated General Appearance: Chronically ill, Obese HEENT: Moist Mucous Membranes; No Scleral Icterus (L), No Scleral Icterus (R); Other (poor dentition) Neck: Normal Inspection, Supple; No Thyromegaly Respiratory: No Accessory Muscle Use, No Respiratory Distress, Wheezing (coarse throughout) Cardiovascular: Regular Rate, Rhythm, No Murmur Capillary Refill: Less Than 3 Seconds Gastrointestinal: soft, tenderness Extremity: No Calf Tenderness, No Pedal Edema Neurologic/Psychiatric: Alert, Oriented x3 Skin: Normal Color, Warm/Dry Results Lab Laboratory Tests 11/23/19 07:20 11/24/19 04:34 11/25/19 05:10 Assessment/Plan Assessment/Plan CAP bilateral -COVID is negative -Rocephin and Azithromycin - -Will do home 02 qualification -Pt is ok for discharge from pulmonary standpoint with prednisone taper. -procalcitonin is neg x 2 however CXR shows extensive bilateral infiltrates -Influenza negative 11/19 - respiratory viral panel - pending -Check urine strep and legionella ag Worsening leukocytosis secondary to steroids started 11/23 COPDAE -Albuterol -Advair Marijuanna use -Education Hx of methamphetamine use Abdominal pain Constipation Surgery consulted HTN Depression Anxiety Continue home meds BHARGAV ROUSSEAU DO Nov 25, 2019 06:32
[2019-11-25] MEDS: ADVAIR HFA 115/21 MCG INHALER 8 GM IH SCH (06:57)
[2019-11-25] MEDS: predniSONE 10 MG TAB PO SCH (07:31)
[2019-11-25] MEDS: BENZONATATE 100 MG (TESSALON) CAPSULE PO PRN ×2 (07:32→12:51)
[2019-11-25] MEDS: ALPRAZolam 0.5 MG (XANAX) TAB PO SCH ×2 (07:32→13:12)
[2019-11-25] MEDS: GABAPENTIN 300 MG (NEURONTIN) CAP PO SCH (07:32)
[2019-11-25] MEDS: AZITHROMYCIN 250 MG TAB (ZITHROMAX) PO SCH (07:32)
[2019-11-25] MEDS: FAMOTIDINE 20 MG (PEPCID) TABLET PO SCH (07:32)
[2019-11-25] MEDS: lisINopril 20 MG (PRINIVIL) TABLET PO SCH (07:33)
[2019-11-25] MEDS: amLODIPine 10 MG (NORVASC) TAB PO SCH (07:33)
[2019-11-25] MEDS: polyethylene glycoL POWDER 17 GM (MIRALAX) PACK PO SCH (07:34)
[2019-11-25] MEDS: FLUoxetine HCL 20 MG (PROzac) CAP PO SCH (07:34)
[2019-11-25] MEDS: HYDROcodone/APAP 7.5 MG/325 MG (LORTAB, LORCET PLUS) TABLET PO PRN ×2 (07:41→12:25)
[2019-11-25] MEDS: CYCLOBENZAPRINE 10 MG (FLEXERIL) TAB PO PRN ×2 (07:41→12:51)
[2019-11-25 08:00] VITALS: BP 137/88
--- NOTE | 2019-11-25 10:55 | NUR ---
PATIENT REFUSED TO WALK AT THIS TIME. PATIENT DID NOT NEED O2 AT THIS TIME.
--- NOTE | 2019-11-25 10:58 | NUR ---
CM/SS visited with the patient for discharge planning. Plan: The patient will return home. She did not qualify for home O2 at this time. The patient also refused to walk for O2 study. The patient is attempting to contact her two daughters to see if one of them will be available for transportation at time of discharge. Will follow to see if transportation assistance is needed.
[2019-11-25] MEDS: cefTRIAXone FOR IV USE 1,000 MG in WATER (STERILE) FOR INJECTION 10 ML IV SCH (11:30)
[2019-11-25] MEDS ORDERED: PRD10T PO (11:51)
[2019-11-25 12:00] VITALS: BP 125/73
--- NOTE | 2019-11-25 12:17 | Discharge Summary ---
Discharge Summary Hospital Course Was the Problem List Reviewed?: Yes Problems/Dx: (1) Bilateral pneumonia Status: Acute Qualifiers: Qualified Codes: J18.9 - Pneumonia, unspecified organism (2) Chronic low back pain Status: Chronic (3) Hypokalemia Status: Acute (4) Polysubstance abuse Status: Chronic (5) Hypertension Status: Chronic Qualifiers: Qualified Codes: I10 - Essential (primary) hypertension (6) Depression with anxiety Status: Acute Hospital Course Date of Admission: Nov 21, 2019 at 11:13 Admission Diagnosis : bilateral pneumonia acute hypoxic respiratory failure chronic pain history of drug use Family Physician/Provider: Eliot Gong DO Date of Discharge: 11/25/19 Discharge Diagnosis: bilateral pneumonia acute hypoxic respiratory failure chronic pain history of drug use hypokalemia Hospital Course: 49 yo F admitted for bilateral pneumonia- with hypoxic respiratory failure with oxygen requirement increasing over last few days. Patient continued to complain of abdominal pain and requested from every provider more pain medication. She was given morphine and hydrocodone/apap. Surgery was consulted and felt her abdominal pain was from constipation and she was given a bowel regimen that she reported gave her diarrhea; so she refused to take anymore. On day of discharge 11/25/19 we ordered an ambulatory oxygen study and patient refused to walk. Oxygen was removed and her oxygen saturations remained in low 90s. Staff report that she watches the oxygen monitor and holds her breath but when she could not see the monitor her oxygen stays up. Later in the afternoon prior to discharge patient agreed to do the ambulatory oxygen test and she required 2L oxygen via nasal cannula. She will go home with oxygen. She was unable to walk very far. Definitely a factor of obesity hypoventilation as she was encouraged to get up to chair but laid in the hospital bed. Pt was able to ambulate to the bathroom without issues. Informed patient she would not go home on opioids and she voiced understanding. She was stable for discharge and discharged to home 11/25/19. Labs and Pending Lab Test: Laboratory Tests 11/24/19 12:07: Glucometer 150H 11/25/19 05:10: White Blood Count 13.3H, Red Blood Count 4.29L, Hemoglobin 12.3, Hematocrit 38, Mean Corpuscular Volume 90, Mean Corpuscular Hemoglobin 29, Mean Corpuscular Hemoglobin Concent 32, Red Cell Distribution Width 14.3, Platelet Count 346, Mean Platelet Volume 10.3, Neutrophils (%) (Auto) 86H, Lymphocytes (%) (Auto) 10L, Monocytes (%) (Auto) 5, Eosinophils (%) (Auto) 0, Basophils (%) (Auto) 0, Neutrophils # (Auto) 11.4H, Lymphocytes # (Auto) 1.3, Monocytes # (Auto) 0.6, Eosinophils # (Auto) 0.0, Basophils # (Auto) 0.0, Sodium Level 142, Potassium Level 4.0, Chloride Level 99, Carbon Dioxide Level 30, Anion Gap 13, Blood Urea Nitrogen 9, Creatinine 0.63, Estimat Glomerular Filtration Rate > 60, BU N/Creatinine Ratio 14, Glucose Level 131H, Calcium Level 9.4, Phosphorus Level 3.5, Magnesium Level 1.9 Microbiology 11/23/19 Urine Culture - Final, Complete NO GROWTH 11/22/19 Gram Stain - Final, Complete 11/22/19 Sputum Culture - Final, Complete Usual upper respiratory stanley YEAST 11/21/19 Blood Culture - Preliminary, Resulted No growth Home Meds Active Prednisone 10 Mg Tab 50 Mg PO DAILY@0800 10 Days Azithromycin 250 Mg Tablet 250 Mg PO UD TAKE 2 TABLETS ON DAY ONE THEN TAKE 1 TABLET DAILY FOR FOUR MORE DAYS Albuterol Sulfate 2.5 Mg/3 Ml Vial.neb 2.5 Mg INH Q4H PRN Prometh-Codein 6.25-10 mg/5 ml (Promethazine HCl/Codeine) 5 Ml Syrup 5 Ml PO Q6H PRN Cefdinir 300 Mg Capsule 300 Mg PO BID Proair Hfa (Albuterol Sulfate) 1 Puff Puff 2 Puff IH Q4H PRN 1 PUFF = 90 MCG Pepcid (Famotidine) 20 Mg Tablet 20 Mg PO BID Prednisone 20 Mg Tab 40 Mg PO DAILY Reported Alprazolam 0.5 Mg Tablet 0.5 Mg PO BID PRN Prozac (Fluoxetine HCl) 40 Mg Capsule 40 Mg PO DAILY Amlodipine Besylate 10 Mg Tablet 10 Mg PO DAILY LAST FILLED 09-22-2019 #30/30 DAYS SUPPLY Gabapentin 300 Mg Capsule 300 Mg PO BID PRN Lisinopril 20 Mg Tablet 20 Mg PO DAILY LAST FILLED 09-22-2019 #30/30 DAYS SUPPLY Cyclobenzaprine HCl 10 Mg Tablet 10 Mg PO BID PRN Quetiapine Fumarate 100 Mg Tablet 100 Mg PO HS PRN LAST FILLED 09-18-2019 #14 Benadryl (Diphenhydramine HCl) 25 Mg Capsule 75 Mg PO HS PRN TAKES 3 (25MG) CAPSULES Amitriptyline HCl 25 Mg Tablet 25 Mg PO HS Assessment/Pt Instructions complete steroid taper stay home social distancing get up and walk around in your house multiple times per day follow up with Dr. Gong in 2 weeks. Discharge Planning: <30 minutes discharge planning Discharge Instructions Discharge Diet: Regular Diet Activity as Tolerated: Yes Discharge Physical Examination Vital Signs Vital Signs Date Time Temp Pulse Resp B/P (MAP) Pulse Ox O2 Delivery O2 Flow Rate FiO2 11/25/19 10:57 90 Room Air 11/25/19 10:45 2.00 11/25/19 08:00 36.2 86 18 137/88 (104) General Appearance: Mild Distress (state abdominal pain) HEENT: PERRL/EOMI Respiratory: Chest Non Tender, Decreased Breath Sounds, Wheezing Cardiovascular: Regular Rate, Rhythm Gastrointestinal: Non Tender, Soft Extremity: Non Tender Skin: Warm/Dry Neurologic/Psychiatric: Alert, Oriented x3 Allergies: Coded Allergies: No Known Drug Allergies (Unverified , 04/03/18) Discharge Summary Date of Admission Nov 21, 2019 at 11:13 Date of Discharge November 25, 2019 Admission Diagnosis CAP Discharge Diagnosis bilateral pneumonia acute hypoxic respiratory failure chronic pain history of drug use hypokalemia (1) Bilateral pneumonia Status: Acute Qualifiers: Qualified Codes: J18.9 - Pneumonia, unspecified organism (2) Chronic low back pain Status: Chronic (3) Hypokalemia Status: Acute Assessment & Plan: replacing (4) Polysubstance abuse Status: Chronic (5) Hypertension Status: Chronic Assessment & Plan: continue home medications Qualifiers: Qualified Codes: I10 - Essential (primary) hypertension (6) Depression with anxiety Status: Acute (7) Acute respiratory failure with hypoxia Clinical Quality Measures DVT/VTE Risk/Contraindication: Risk Factor Score Per Nursin RFS Level Per Nursing on Admit: 4+=Very High BRYAN DE DIOS MD Nov 25, 2019 12:12
[2019-11-25] MEDS ORDERED: ALPRAZolam 1 MG (XANAX) TAB PO NR (13:15)
--- NOTE | 2019-11-25 13:43 | NUR ---
AFTER SHOWER PT. SOA. O2 SAT 82 % ON R/A. REAPPLIED O2 AT 2 L PER MIN. PER N/C.
--- NOTE | 2019-11-25 14:22 | NUR ---
PATIENT WAS ON ROOM AIR AND SAT OF 91%. PATIENT STOOD UP TO GO FOR WALK AND SAT DROPPED TO 86%. 2L PLACED ON PATIENT AT THIS TIME. PATIENT WAS VERY WOBBLY AND UNABLE TO CONTINUE THE WALK. PT REQUIRES 2L WHILE WALKING.
--- NOTE | 2019-11-25 14:46 | NUR ---
AXEL[facility] was notified of results from second oxygen study. AXEL/MEJIA provided the patient with a patient preference form. She chose [facility] ([phone]) in [place]. [facility] called and spoke with Louise. [facility]EL[facility] faxed ([phone]) the H&P, face sheet, scrip, and qualifiers to [facility]. They will deliver portable tank to the hospital and then set up the rest in the home. The nurse reports the patients daughter will be available for transportation at time of discharge. No other needs at this time.
[2019-11-25 16:15] VITALS: BP 125/73
--- NOTE | 2019-11-25 16:15 | NUR ---
TERENCE FUNK demonstrates understanding of discharge instructions and accurately returns instructions upon questioning. Copy of Post-Discharge Instructions given to PT. TERENCE FUNK is able to manage continuing needs after discharge. Patients belongings returned to PT. Patient discharged from 421-1 on 11/25/19 at 1615. TERENCE FUNK left floor via W/C, accompanied by STAFF AND DAUGHTER PER AUTO.
== END 2019-11-25 16:15 | disposition home or self-care (01) | DRG 193 ==
LOC: EDUNIT# 08:34 → ER 08:35 → 4TH 11:13
PROVIDERS: ADMIT Family Medicine; ATTEND Family Medicine
DX: J18.9 Pneumonia, unspecified organism (principal); J96.01 Acute respiratory failure with hypoxia; J44.0 Chronic obstructive pulmonary disease with (acute) lower respiratory infection; J44.1 Chronic obstructive pulmonary disease with (acute) exacerbation; E66.2 Morbid (severe) obesity with alveolar hypoventilation; Z68.42 Body mass index [BMI] 45.0-49.9, adult; I10 Essential (primary) hypertension; K59.00 Constipation, unspecified; R19.7 Diarrhea, unspecified; D72.829 Elevated white blood cell count, unspecified; G40.909 Epilepsy, unspecified, not intractable, without status epilepticus; M19.91 Primary osteoarthritis, unspecified site; M79.7 Fibromyalgia; M41.9 Scoliosis, unspecified; M54.9 Dorsalgia, unspecified; F32.9 Major depressive disorder, single episode, unspecified; F41.9 Anxiety disorder, unspecified; G43.909 Migraine, unspecified, not intractable, without status migrainosus; F12.90 Cannabis use, unspecified, uncomplicated; G47.9 Sleep disorder, unspecified; H54.8 Legal blindness, as defined in USA; Z87.891 Personal history of nicotine dependence; Z86.711 Personal history of pulmonary embolism; Z87.19 Personal history of other diseases of the digestive system; Z87.440 Personal history of urinary (tract) infections; Z87.442 Personal history of urinary calculi; Z91.5 Personal history of self-harm; Z20.818 Contact with and (suspected) exposure to other bacterial communicable diseases; T38.0X5A Adverse effect of glucocorticoids and synthetic analogues, initial encounter
CPT/HCPCS: 36415; 36600; 71045; 71275; 80048; 80053; 80306; 81000; 82728; 82805; 82962; 83605; 83615; 83690; 83735; 83874; 83880; 84100; 84145; 84484; 85025; 85379; 85610; 85652; 85730; 86141; 87040; 87070; 87088; 87205; 87449; 87635; 87804; 87899; 93005; 93041; 94640; 94760; 94761

== ENCOUNTER → 2020-03-24 | Emergency (ER) | payer MEDICAID ==
[~2020-03-24] VITALS: Ht 157 cm; Wt 102.0 kg
[~2020-03-24] MED LIST changes: +FAMOTIDINE 20MG/2ML IV (PEPCID) IV STA; +FLUO40CA12 PO; +HALOPERIDOL 5 MG/ML (HALDOL) VIAL IV ONE; +HYOSCYAMINE 0.125 MG (LEVSIN) TAB SL ONE; +NS IV 1000 ML 1,000 ML IV STA; +ONDANSETRON 4 MG/2 ML (SDV) Z0FRAN IVP ONE
--- NOTE | 2020-03-24 11:35 | NUR ---
WHILE THRASHING AROUND IN BED AND YELLING PT PURPOSELY FLUNG SELF ONTO FLOOR. PT ABLE TO STAND AND GET INTO BED WITHOUT DIFFICULTY. NUMEROUS STAFF PRESENT INCLUDING MYSELF, DR FRANCES, AND EMS. PT DID NOT HIT HEAD. COMPLAINED OF RIGHT WRIST PAIN BUT ABLE TO MOVE IT ALL AROUND WITHOUT DIFFICULTY. PT CONTINUES TO YELL FOR PAIN MEDS ONCE IN BED.
--- NOTE | 2020-03-24 11:40 | ED Abdominal Pain ---
General Stated Complaint: ABD PAIN Source of Information: Patient, EMS History of Present Illness Date Seen by Provider: Mar 24, 2020 Time Seen by Provider: 11:37 Initial Comments 49-year-old female presents with chronic abdominal pain. Patient reports that started at 518 this morning. That she has "chronic pancreatitis" patient is a frequent visitor to the emergency room often seeking pain medication. Patient denies any nausea or vomiting. The pain is in the epigastric region. Patient denies any alcohol use. She admits to marijuana use. She reports that she's taking hot showers and that helps. Allergies and Home Medications Allergies Coded Allergies: No Known Drug Allergies (Unverified , 04/03/18) Home Medications Albuterol Sulfate 1 Puff Puff, 2 PUFF IH Q4H PRN for WHEEZING 1 PUFF = 90 MCG Prescribed by: EL BYRNES on 11/18/19 1700 Albuterol Sulfate 2.5 Mg/3 Ml Vial.neb, 2.5 MG INH Q4H PRN for WHEEZING Prescribed by: DOMINGO NOBLES on 11/20/19 0832 Alprazolam 0.5 Mg Tablet, 0.5 MG PO BID PRN for ANXIETY, (Reported) Amitriptyline HCl 25 Mg Tablet, 25 MG PO HS, (Reported) Amlodipine Besylate 10 Mg Tablet, 10 MG PO DAILY, (Reported) LAST FILLED 09-22-2019 #30/30 DAYS SUPPLY Azithromycin 250 Mg Tablet, 250 MG PO UD TAKE 2 TABLETS ON DAY ONE THEN TAKE 1 TABLET DAILY FOR FOUR MORE DAYS Prescribed by: DOMINGO NOBLES on 11/20/19 0835 Cefdinir 300 Mg Capsule, 300 MG PO BID Prescribed by: DOMINGO NOBLES on 11/20/19 0832 Cyclobenzaprine HCl 10 Mg Tablet, 10 MG PO BID PRN for MUSCLE SPASMS, (Reported) Diphenhydramine HCl 25 Mg Capsule, 75 MG PO HS PRN for SLEEP, (Reported) TAKES 3 (25MG) CAPSULES Famotidine 20 Mg Tablet, 20 MG PO BID Prescribed by: DOMINGO NOBLES on 05/15/19 1101 Fluoxetine HCl 40 Mg Capsule, 40 MG PO DAILY, (Reported) Gabapentin 300 Mg Capsule, 300 MG PO BID PRN for PAIN, (Reported) Lisinopril 20 Mg Tablet, 20 MG PO DAILY, (Reported) LAST FILLED 09-22-2019 #30/30 DAYS SUPPLY Prednisone 20 Mg Tab, 40 MG PO DAILY Prescribed by: JAMES DIA on 05/06/19 1244 Prednisone 10 Mg Tab, 50 MG PO DAILY@0800 Prescribed by: BRYAN DE DIOS on 11/25/19 1151 Promethazine HCl/Codeine 5 Ml Syrup, 5 ML PO Q6H PRN for COUGH Prescribed by: ODMINGO NOBLES on 11/20/19 0833 Quetiapine Fumarate 100 Mg Tablet, 100 MG PO HS PRN for SLEEP, (Reported) LAST FILLED 09-18-2019 #14 Patient Home Medication List Home Medication List Reviewed: Yes Review of Systems Review of Systems Constitutional: No chills, No fever Respiratory: Denies Cough, Denies Shortness of Air Cardiovascular: Denies Chest Pain, Denies Lightheadedness Gastrointestinal: See HPI, Abdominal Pain Genitourinary: No Symptoms Reported Musculoskeletal: no symptoms reported Skin: no symptoms reported Psychiatric/Neurological: Emotional Problems Past Razayzq-Zahrli-Fffkss Hx Past Med/Social Hx: Reviewed Nursing Past Med/Soc Hx Patient Social History Alcohol Beverage of Choice: Vodka Drug of Choice: HX OF MJ , METH, THC, PILLS--POLYSUBSTANCES-OPIATES/BENZO'S ESPECIALLY Type Used: Cigarettes Former Smoker, Quit: December 24, 2016 2nd Hand Smoke Exposure: Yes Recent Hopitalizations: No Immunizations Up To Date Tetanus Booster (TDap): Unknown Date of Pneumonia Vaccine: Apr 26, 2015 Date of Influenza Vaccine: Sep 22, 2019 Seasonal Allergies Seasonal Allergies: No Past Medical History Surgeries: Yes Eye Surgery, Gallbladder, Hysterectomy, Orthopedic, Renal, Tubal Ligation Respiratory: Yes Pneumonia, Chronic Bronchitis, Pulmonary Embolism Currently Using CPAP: No Currently Using BIPAP: No Cardiac: Yes Hypertension Neurological: Yes ("PSEUDO SEIZURES") Headaches /Migraines, Seizure Disorder 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 Disorders: No Female 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 Disorders: Denies 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 EXTENSIVE DENTAL CARIES/LEGALLY BLIND) Loss of Vision: Bilateral Cancer: No Psychosocial: Yes (POLYSUBSTANCE ABUSE, OVERDOSES ) Pseudo Seizures, Sleep Difficulties, Anxiety, Suicide Attempts, Depression Integumentary: No Blood Disorders: No Family Medical History Alcoholism 19 FATHER (grandfather) Alzheimer's disease 19 MOTHER (grandmother) Arthritis 19 FATHER Cardiovascular disease 19 FATHER 19 MOTHER Cataracts 19 MOTHER Coronary thrombosis 19 FATHER Dementia 19 MOTHER (grandparents) Diabetes mellitus 19 MOTHER Drug abuse 19 FATHER Glaucoma 19 FATHER (grandfather) Headache disorder 19 FATHER Hypercholesterolemia 19 FATHER Hypertension 19 FATHER Myocardial infarction 19 FATHER Parkinson's disease 19 MOTHER Prostate cancer 19 MOTHER (uncle brother of mother) Psychosocial problem 19 FATHER Respiratory disorder 19 FATHER (grandfather) Seizure disorder 19 MOTHER No Family History of: AIDS Abdominal aortic aneurysm Iron's disease Aphasia Asthma Cancer of mouth Colon cancer Completed stroke Congenital disease Congenital heart disease Cystic fibrosis Deafness or hearing loss Dysphasia Fibrocystic disease of breast Gastroenteritis Infertility Kidney disease Neoplasm Severe allergy Thyroid disease Tuberculosis Visual disorder Physical Exam Vital Signs Vital Signs - First Documented 03/24/20 11:31 Temp 37.0 Capillary Refill : Height/Weight/BMI Height: 5'0.00" Weight: 258lbs. 2.0oz. 117.178742uz; 47.86 BMI Method:Stated General Appearance: WD/WN, no apparent distress Neck: full range of motion, supple Respiratory: lungs clear, normal breath sounds, no respiratory distress Cardiovascular: normal peripheral pulses, regular rate, rhythm Gastrointestinal: soft, tenderness (epigastric) Extremities: normal range of motion, non-tender Neurologic/Psychiatric: alert, oriented x 3, other (patient is very dramatic) Skin: normal color, warm/dry Focused Exam Lactate Level 03/24/20 11:51: Lactic Acid Level 4.21*H Lactic Acid Level Laboratory Tests Test 03/24/20 11:51 Lactic Acid Level 4.21 MMOL/L (0.50-2.00) *H Procedures/Interventions Date of ETT Placement: Aug 30, 2017 Time of ETT Placement: 2234 Suture Size: 4-0 Progress/Results/Core Measures Results/Orders Lab Results Laboratory Tests Test 03/24/20 11:34 03/24/20 11:51 03/24/20 12:53 Range/Units White Blood Count 10.3 4.3-11.0 10^3/uL Red Blood Count 5.60 4.35-5.85 10^6/uL Hemoglobin 16.3 H 11.5-16.0 G/DL Hematocrit 48 35-52 % Mean Corpuscular Volume 85 80-99 FL Mean Corpuscular Hemoglobin 29 25-34 PG Mean Corpuscular Hemoglobin Concent 34 32-36 G/DL Red Cell Distribution Width 14.1 10.0-14.5 % Platelet Count 305 130-400 10^3/uL Mean Platelet Volume 11.4 H 7.4-10.4 FL Neutrophils (%) (Auto) 81 H 42-75 % Lymphocytes (%) (Auto) 17 12-44 % Monocytes (%) (Auto) 2 0-12 % Eosinophils (%) (Auto) 0 0-10 % Basophils (%) (Auto) 0 0-10 % Neutrophils # (Auto) 8.3 H 1.8-7.8 X 10^3 Lymphocytes # (Auto) 1.8 1.0-4.0 X 10^3 Monocytes # (Auto) 0.2 0.0-1.0 X 10^3 Eosinophils # (Auto) 0.0 0.0-0.3 10^3/uL Basophils # (Auto) 0.0 0.0-0.1 10^3/uL Sodium Level 138 135-145 MMOL/L Potassium Level 3.6 3.6-5.0 MMOL/L Chloride Level 104 98-107 MMOL/L Carbon Dioxide Level 19 L 21-32 MMOL/L Anion Gap 15 H 5-14 MMOL/L Blood Urea Nitrogen 10 7-18 MG/DL Creatinine 0.79 0.60-1.30 MG/DL Estimat Glomerular Filtration Rate > 60 BUN/Creatinine Ratio 13 Glucose Level 149 H 70-105 MG/DL Calcium Level 9.9 8.5-10.1 MG/DL Corrected Calcium 9.7 8.5-10.1 MG/DL Total Bilirubin 0.4 0.1-1.0 MG/DL Aspartate Amino Transf (AST/SGOT) 15 5-34 U/L Alanine Aminotransferase (ALT/SGPT) 10 0-55 U/L Alkaline Phosphatase 76 40-136 U/L C-Reactive Protein High Sensitivity 0.25 0.00-0.50 MG/DL Total Protein 7.8 6.4-8.2 GM/DL Albumin 4.2 3.2-4.5 GM/DL Serum Alcohol < 10 <10 MG/DL Lactic Acid Level 4.21 *H 0.50-2.00 MMOL/L Urine Test NEGATIVE NEGATIVE My Orders Orders - FRANCESMADELYNJose L Rubin DO Acute Abd Series (03/24/20 11:40) Cbc With Automated Diff (03/24/20 11:40) Comprehensive Metabolic Panel (03/24/20 11:40) Hs C Reactive Protein (03/24/20 11:40) Drug Screen Stat (Urine) (03/24/20 11:40) Hcg,Qualitative Urine (03/24/20 11:40) Lactic Acid Analyzer (03/24/20 11:40) Ua Culture If Indicated (03/24/20 11:40) Ondansetron Injection (Zofran Injectio (03/24/20 11:45) Ns Iv 1000 Ml (Sodium Chloride 0.9%) (03/24/20 11:40) Famotidine Injection (Pepcid Injection) (03/24/20 11:40) Hyoscyamine Sl Tablet (Levsin Sl Tablet) (03/24/20 11:45) Haloperidol Injection (Haldol Injectio (03/24/20 11:45) Alcohol (03/24/20 12:18) Medications Given in ED Current Medications Medications Dose Ordered Sig/Garry Route Start Time Stop Time Status Last Admin Dose Admin Haloperidol Lactate 2.5 mg ONCE ONCE IV 03/24/20 11:45 03/24/20 11:47 DC 03/24/20 11:56 2.5 MG Hyoscyamine Sulfate 0.125 mg ONCE ONCE SL 03/24/20 11:45 03/24/20 11:46 DC 03/24/20 11:50 0.125 MG Ondansetron HCl 4 mg ONCE ONCE IVP 03/24/20 11:45 03/24/20 11:46 DC 03/24/20 11:50 4 MG Vital Signs/I&O 03/24/20 11:31 Temp 37.0 B/P (MAP) Progress Progress Note : Time: 13:08 Progress Note Patient symptoms seem to significantly improved following treatment with the Haldol and Levsin. Patient decided to leave AMA with no indications of why. Patient walked out without difficulty. Patient seemed to be pain free when she left. Patient was stable upon her leaving AMA Departure Impression Primary Impression: Abdominal pain Qualified Codes: R10.13 - Epigastric pain Disposition: 07 AGAINST MEDICAL ADVICE Condition: Stable Departure-Patient Inst. Referrals: HARVEY LINDSEY DO (PCP/Family) Primary Care Physician Patient Instructions: No Instuctions Given LILA FRANCES DO Mar 24, 2020 11:40
--- NOTE | 2020-03-24 11:59 | NUR ---
PT YELLING MY WRIST IS FINE ITS JUST MY STOMACH AND YOU ARE NOT DOING ANYTHING. I NEED PAIN MEDS. EXPLAINED THE MEDICATIONS THAT WAS GIVEN AND THE PLAN FOR X-RAYS.
--- NOTE | 2020-03-24 12:00 | NUR ---
WARM BLANKET GIVEN.
[2020-03-24 12:02] LABS: BASOPHILS % (AUTO) 0 % (0-10); EOSINOPHILS % (AUTO) 0 % (0-10); HEMATOCRIT 48 % (35-52); HEMOGLOBIN 16.3 G/DL (11.5-16.0); LYMPHOCYTES # (AUTO) 1.8 X 10^3 (1.0-4.0); LYMPHOCYTES % (AUTO) 17 % (12-44); MEAN CORPUSCULAR HEMOGLOBIN 29 PG (25-34); MEAN CORPUSCULAR HGB CONC 34 G/DL (32-36); MEAN CORPUSCULAR VOLUME 85 FL (80-99); MEAN PLATELET VOLUME 11.4 FL (7.4-10.4); MONOCYTES # (AUTO) 0.2 X 10^3 (0.0-1.0); MONOCYTES % (AUTO) 2 % (0-12); NEUTROPHILS # (AUTO) 8.3 X 10^3 (1.8-7.8); NEUTROPHILS % (AUTO) 81 % (42-75); PLATELET COUNT 305 10^3/uL (130-400); RED CELL DISTRIBUTION WIDTH 14.1 % (10.0-14.5); WHITE BLOOD COUNT 10.3 10^3/uL (4.3-11.0)
--- NOTE | 2020-03-24 12:10 | NUR ---
PT YELLING SHE NEEDS TO GO TO THE BATHROOM. ONCE IN ROOM AND UNHOOKED FROM IV LINES PT BEGAN TO CRAWL OVER THE BED RAILS. TOLD PT NOT TO DO THAT. PT CONTINUES TO YELL ET WATING PAIN MEDS. WHEN IN TOLD HER I WOULD LET THE DR KNOW SHE NO LONGER WANTED TO GO TO THE BATHROOM.
[2020-03-24 12:15] LABS: ALANINE AMINOTRANSFERASE 10 U/L (0-55); ALBUMIN 4.2 GM/DL (3.2-4.5); ALKALINE PHOSPHATASE 76 U/L (40-136); BILIRUBIN,TOTAL 0.4 MG/DL (0.1-1.0); BUN/CREATININE RATIO 13; CALCIUM 9.9 MG/DL (8.5-10.1); CARBON DIOXIDE 19 MMOL/L (21-32); CHLORIDE 104 MMOL/L (98-107); CREATININE SERUM 0.79 MG/DL (0.60-1.30); GFR ESTIMATED > 60; GLUCOSE 149 MG/DL (70-105); POTASSIUM 3.6 MMOL/L (3.6-5.0); SODIUM 138 MMOL/L (135-145); TOTAL PROTEIN 7.8 GM/DL (6.4-8.2)
--- NOTE | 2020-03-24 12:21 | NUR ---
PT RESTING WITH EYES CLOSED.
--- NOTE | 2020-03-24 12:31 | NUR ---
PT BACK FROM X-RAY. CONTINUES TO LAY PRONE QUIETLY IN BED.
--- NOTE | 2020-03-24 12:40 | Diagnostic Imaging Report ---
INDICATION: Abdominal pain. Comparison with 11/24/2019. FINDINGS: The lungs are clear. Upright and supine abdomen shows some gas in the small bowel and colon without evidence of significant stool burden. No findings are seen that would indicate obstructive process. No organomegaly or pathologic calcification. Surgical clips in a biliary fossa. IMPRESSION: 1. Findings suggestive of mild adynamic ileus. No evidence of bowel obstruction or constipation. Dictated by: Dictated on workstation # [id number]
[2020-03-24 12:59] LABS: BILIRUBIN,URINE NEGATIVE (NEGATIVE); CLARITY,URINE CLEAR; COLOR,URINE YELLOW; GLUCOSE, URINE (UA) NEGATIVE (NEGATIVE); KETONES,URINE 2+ (NEGATIVE); LEUKOCYTE ESTERASE ,URINE NEGATIVE (NEGATIVE); NITRITE,URINE NEGATIVE (NEGATIVE); PH,URINE 7.5 (5-9); PROTEIN,URINE TRACE (NEGATIVE)
[2020-03-24 13:03] LABS: HCG,QUALITATIVE URINE NEGATIVE (NEGATIVE)
--- NOTE | 2020-03-24 13:05 | NUR ---
PT AT [facility] HAS TAKEN OUT IV AND STATES SHE IS LEAVING. ASKED HER IF SHE WOULD LIKE TO STAY FOR HER RESULTS AND SHE STATES NO SHE IS GOING HOME. REFUSED TO SIGN AMA FORM. REQUESTS FOR US TO GET HER A RIDE WHICH WAS DENIED DUE TO HER LEAVING AMA. PT WALKED OUT THE DOOR WITHOUT DIFFICULTY.
[2020-03-24 13:12] LABS: BACTERIA,URINE TRACE /HPF; WBC,URINE RARE /HPF
[2020-03-24 13:27] LABS: AMPHETAMINE SCREEN, URINE NEGATIVE (NEGATIVE); BARBITURATE SCREEN URINE NEGATIVE (NEGATIVE); BENZODIAZEPINES SCREEN URINE NEGATIVE (NEGATIVE); CANNABINOID SCREEN, URINE POSITIVE (NEGATIVE); COCAINE SCREEN URINE NEGATIVE (NEGATIVE); METHADONE STAT NEGATIVE (NEGATIVE); METHAMPHETAMINE SCREEN URINE S NEGATIVE (NEGATIVE); OPIATE SCREEN URINE NEGATIVE (NEGATIVE); OXYCODONE STAT NEGATIVE (NEGATIVE); PROPOXYPHENE STAT NEGATIVE (NEGATIVE); TRICYCLIC ANTIDEPRESSANTS SCRE NEGATIVE (NEGATIVE)
== END ==
LOC: EDUNIT# 11:31 → ER 11:32
DX: R10.13 Epigastric pain (principal); I10 Essential (primary) hypertension; F41.9 Anxiety disorder, unspecified; F32.9 Major depressive disorder, single episode, unspecified; G40.909 Epilepsy, unspecified, not intractable, without status epilepticus; M79.7 Fibromyalgia; E66.01 Morbid (severe) obesity due to excess calories; G43.909 Migraine, unspecified, not intractable, without status migrainosus; Z68.42 Body mass index [BMI] 45.0-49.9, adult; Z82.49 Family history of ischemic heart disease and other diseases of the circulatory system; Z80.42 Family history of malignant neoplasm of prostate; Z79.52 Long term (current) use of systemic steroids; Z87.891 Personal history of nicotine dependence
CPT/HCPCS: 36415; 74022; 80053; 80306; 80320; 81000; 83605; 84703; 85025; 86141

== ENCOUNTER 2021-02-10 08:15 | Emergency (ER) | payer MEDICAID ==
[~2021-02-10] VITALS: Ht 149 cm; Wt 77.0 kg
[~2021-02-10 08:15] MED LIST changes: -ACET-2715 PO; +ACET-3075 PO; +ALPR.25T PO; -ALPR0.254 PO; +AMLO-250 PO; +AMLO-251 PO; -AMLO10TA7 PO; -AMLO5TAB9 PO; +ESCI-2 PO; -ESCI10TA55 PO; -FAMOTIDINE 20MG/2ML IV (PEPCID) IV STA; -HALOPERIDOL 5 MG/ML (HALDOL) VIAL IV ONE; -HYOSCYAMINE 0.125 MG (LEVSIN) TAB SL ONE; -LISI-552 PO; -LISI10TA2 PO; +LISI10TA25 PO; +LISI20TA26 PO; -NS IV 1000 ML 1,000 ML IV STA; -ONDANSETRON 4 MG/2 ML (SDV) Z0FRAN IVP ONE
[2021-02-10] MEDS ORDERED: FAMOTIDINE 20MG/2ML IV (PEPCID) ONE (08:29)
[2021-02-10] MEDS ORDERED: ONDANSETRON 4 MG/2 ML (SDV) Z0FRAN ONE (08:29)
[2021-02-10] MEDS ORDERED: FAMOTIDINE 20MG/2ML IV (PEPCID) IVP ONE (08:30)
[2021-02-10] MEDS ORDERED: ONDANSETRON 4 MG/2 ML (SDV) Z0FRAN IVP ONE ×2 (08:30→12:30)
[2021-02-10 08:41] LABS: BASOPHILS % (AUTO) 0 % (0-10); EOSINOPHILS # (AUTO) 0.2 10^3/uL (0.0-0.3); EOSINOPHILS % (AUTO) 2 % (0-10); HEMATOCRIT 50 % (35-52); HEMOGLOBIN 16.9 g/dL (11.5-16.0); LYMPHOCYTES # (AUTO) 2.6 10^3/uL (1.0-4.0); LYMPHOCYTES % (AUTO) 25 % (12-44); MEAN CORPUSCULAR HEMOGLOBIN 30 pg (25-34); MEAN CORPUSCULAR HGB CONC 34 g/dL (32-36); MEAN CORPUSCULAR VOLUME 88 fL (80-99); MEAN PLATELET VOLUME 10.7 fL (9.0-12.2); MONOCYTES # (AUTO) 0.7 10^3/uL (0.0-1.0); MONOCYTES % (AUTO) 6 % (0-12); NEUTROPHILS # (AUTO) 6.6 10^3/uL (1.8-7.8); NEUTROPHILS % (AUTO) 65 % (42-75); PLATELET COUNT 274 10^3/uL (130-400); WHITE BLOOD COUNT 10.1 10^3/uL (4.3-11.0)
[2021-02-10] MEDS ORDERED: fentaNYL INJ 100 MCG/2 ML AMP IVP ONE ×2 (09:00→10:30)
[2021-02-10 09:06] LABS: ALBUMIN 4.1 GM/DL (3.2-4.5); CHLORIDE 104 MMOL/L (98-107); POTASSIUM 3.7 MMOL/L (3.6-5.0); SODIUM 142 MMOL/L (135-145)
[2021-02-10 09:07] LABS: CALCIUM 10.6 MG/DL (8.5-10.1)
[2021-02-10 09:09] LABS: GLUCOSE 101 MG/DL (70-105)
[2021-02-10 09:10] LABS: BILIRUBIN,TOTAL 0.4 MG/DL (0.1-1.0); CARBON DIOXIDE 23 MMOL/L (21-32)
[2021-02-10 09:12] LABS: ALKALINE PHOSPHATASE 73 U/L (40-136); CREATININE SERUM 0.76 MG/DL (0.60-1.30); GFR ESTIMATED > 60
[2021-02-10 09:13] LABS: BILIRUBIN,URINE NEGATIVE (NEGATIVE); CLARITY,URINE CLEAR; COLOR,URINE DARK YELLOW; GLUCOSE, URINE (UA) NEGATIVE (NEGATIVE); KETONES,URINE TRACE (NEGATIVE); LEUKOCYTE ESTERASE ,URINE NEGATIVE (NEGATIVE); NITRITE,URINE NEGATIVE (NEGATIVE); PH,URINE 8.5 (5-9); PROTEIN,URINE TRACE (NEGATIVE)
[2021-02-10 09:13] LABS: BUN/CREATININE RATIO 11
[2021-02-10 09:15] LABS: ALANINE AMINOTRANSFERASE 14 U/L (0-55)
[2021-02-10 09:16] LABS: LIPASE 23 U/L (8-78)
[2021-02-10 09:20] LABS: AMORPHOUS SEDIMENT,UR FEW AMOR PHOSPHATE /LPF; BACTERIA,URINE TRACE /HPF; RBC,URINE RARE /HPF; WBC,URINE 0-2 /HPF
[2021-02-10 09:27] LABS: AMPHETAMINE SCREEN, URINE NEGATIVE (NEGATIVE); BARBITURATE SCREEN URINE NEGATIVE (NEGATIVE); BENZODIAZEPINES SCREEN URINE NEGATIVE (NEGATIVE); CANNABINOID SCREEN, URINE POSITIVE (NEGATIVE); COCAINE SCREEN URINE NEGATIVE (NEGATIVE); METHADONE STAT NEGATIVE (NEGATIVE); METHAMPHETAMINE SCREEN URINE S NEGATIVE (NEGATIVE); OPIATE SCREEN URINE NEGATIVE (NEGATIVE); OXYCODONE STAT NEGATIVE (NEGATIVE); PROPOXYPHENE STAT NEGATIVE (NEGATIVE); TRICYCLIC ANTIDEPRESSANTS SCRE NEGATIVE (NEGATIVE)
[2021-02-10] MEDS ORDERED: ANTACID SUSP 30 ML UDC (MYLANTA) PO ONE ×2 (09:45→12:30)
[2021-02-10] MEDS ORDERED: LIDOCAINE 2% VISCOUS 15 ML UDC PO ONE ×2 (09:45→12:30)
--- NOTE | 2021-02-10 10:25 | Diagnostic Imaging Report ---
INDICATION: Shortest of air and abdominal pain. TIME OF EXAM: 10:08 AM CORRELATION is made with prior chest from 03/24/2020. The heart size is normal. The pulmonary vascularity is unremarkable. The lungs are clear. No infiltrate, effusion or pneumothorax is detected. IMPRESSION: No acute cardiopulmonary process is detected. Dictated by: Dictated on workstation # [id number]
[2021-02-10] MEDS ORDERED: IOHEXOL 350 MG/ML 100 ML (OMNIPAQUE 350) VIAL IV ONE (10:30)
[2021-02-10] MEDS ORDERED: NS 100 ML (IVPB) BAG IV ONE (10:30)
[2021-02-10] MEDS ORDERED: HOLD METFORMIN - RECEIVED CONTRAST 20 ML VIAL IV SCH (10:30)
[2021-02-10] MEDS ORDERED: CATHETER FLUSH 10 ML SYR IV PRN (10:30)
--- NOTE | 2021-02-10 11:55 | Diagnostic Imaging Report ---
CLINICAL INDICATION: Patient with right upper quadrant pain and fever. Patient has past surgical history of hysterectomy. EXAM: Axial CT scan of the abdomen and pelvis performed with 97 mL of Omnipaque 350 IV contrast. Sagittal and coronal reformatted images are created. Auto Exposure Controls were utilized during the CT exam to meet ALARA standards for radiation dose reduction. COMPARISON: CT scan of the abdomen and pelvis with contrast dated 05/15/2019. FINDINGS: The visualized lung bases are clear. There are degenerative spurs involving the visualized lower thoracic spine and lumbar spine. There is lower lumbar spine facet arthropathy. There is a 1.4 cm patchy area of enhancement in the right lobe of the liver which is isodense to liver on the delayed phase, most likely representing a hemangioma. This hemangioma previously measured 11 mm on the prior study. The remainder of the liver is unremarkable. The spleen, pancreas, adrenal glands are unremarkable. Both kidneys are unremarkable. No hydronephrosis, stone, or mass. The bladder is fluid-filled with no gross abnormality. Multiple phleboliths are seen in the pelvis. There are multiple surgical tacks seen in the low pelvis region. The uterus is surgically resected. The expected regions of the ovaries show no significant abnormality. There is no intestinal obstruction. The appendix is unremarkable. The gallbladder is surgically resected. There is no evidence of intrahepatic or extra hepatic ductal dilation. The common duct measures roughly 8 mm which is within normal limits postcholecystectomy. The extra abdominal and extrapelvic soft tissue structures are unremarkable. IMPRESSION: 1: There is no CT evidence of acute abdominal or pelvic process. Cholecystectomy changes are again noted. There are no dilated ducts. 2: Benign hemangioma in the right lobe of the liver is again seen. 3: Postop change to the pelvis, as described above. Dictated by: Dictated on workstation # [id number]
[2021-02-10] MEDS ORDERED: ONDA4TAB11 SL (12:29)
[2021-02-10] MEDS ORDERED: SUCR1TAB36 PO (12:29)
[2021-02-10] MEDS ORDERED: OMEP20CA18 PO (12:29)
--- NOTE | 2021-02-10 12:29 | ED General ---
General Chief Complaint: Abdominal/GI Problems Stated Complaint: ABDOMINAL PAIN Nursing Triage Note: PT TO ROOM 9 PER EMS, PT CO OF SOA AND ABD PAIN EPIGASTRIC AREA, PT STATES WAS SUPPOSE TO GET COVID TEST TODAY, PT STATES HAD FEVER YESTERDAY UP TO 101.5. PT HAS SL IN R AC #20 BY EMS Nursing Sepsis Screen: No Definite Risk Source of Information: Patient Exam Limitations: No Limitations History of Present Illness Date Seen by Provider: Feb 10, 2021 Time Seen by Provider: 08:28 Initial Comments This 50-year-old woman presents to the emergency room with complaints of fever yesterday, cough, shortness of breath, and development of epigastric pain and vomiting today. She is mostly distraught on arrival. She denies any alcohol use but does admit to nursing staff that she consumed some THC edibles today. Allergies and Home Medications Allergies Coded Allergies: No Known Drug Allergies (Unverified , 04/03/18) Home Medications Albuterol Sulfate 1 Puff Puff, 2 PUFF IH Q4H PRN for WHEEZING 1 PUFF = 90 MCG Prescribed by: EL BYRNES on 11/18/19 1700 Albuterol Sulfate 2.5 Mg/3 Ml Vial.neb, 2.5 MG INH Q4H PRN for WHEEZING Prescribed by: DOMINGO NOBLES on 11/20/19 0832 Alprazolam 0.5 Mg Tablet, 0.5 MG PO BID PRN for ANXIETY, (Reported) Amitriptyline HCl 25 Mg Tablet, 25 MG PO HS, (Reported) Amlodipine Besylate 10 Mg Tablet, 10 MG PO DAILY, (Reported) LAST FILLED 09-22-2019 #30/30 DAYS SUPPLY Azithromycin 250 Mg Tablet, 250 MG PO UD TAKE 2 TABLETS ON DAY ONE THEN TAKE 1 TABLET DAILY FOR FOUR MORE DAYS Prescribed by: DOMINGO NOBLES on 11/20/19 0835 Cefdinir 300 Mg Capsule, 300 MG PO BID Prescribed by: DOMINGO NOBLES on 11/20/19 0832 Cyclobenzaprine HCl 10 Mg Tablet, 10 MG PO BID PRN for MUSCLE SPASMS, (Reported) Diphenhydramine HCl 25 Mg Capsule, 75 MG PO HS PRN for SLEEP, (Reported) TAKES 3 (25MG) CAPSULES Famotidine 20 Mg Tablet, 20 MG PO BID Prescribed by: DOMINGO NOBLES on 05/15/19 1101 Fluoxetine HCl 40 Mg Capsule, 40 MG PO DAILY, (Reported) Gabapentin 300 Mg Capsule, 300 MG PO BID PRN for PAIN, (Reported) Lisinopril 20 Mg Tablet, 20 MG PO DAILY, (Reported) LAST FILLED 09-22-2019 #30/30 DAYS SUPPLY Omeprazole 20 Mg Capsule.dr, 20 MG PO BID Prescribed by: JOEL MANUEL on 02/10/21 1229 Ondansetron 4 Mg Tab.rapdis, 4 MG SL Q4H PRN for NAUSEA/VOMITING Prescribed by: JOEL MANUEL on 02/10/21 1229 Prednisone 20 Mg Tab, 40 MG PO DAILY Prescribed by: JAMES DIA on 05/06/19 1244 Prednisone 10 Mg Tab, 50 MG PO DAILY@0800 Prescribed by: BRYAN DE DIOS on 11/25/19 1151 Promethazine HCl/Codeine 5 Ml Syrup, 5 ML PO Q6H PRN for COUGH Prescribed by: DOMINGO NOBLES on 11/20/19 0833 Quetiapine Fumarate 100 Mg Tablet, 100 MG PO HS PRN for SLEEP, (Reported) LAST FILLED 09-18-2019 #14 Sucralfate 1 Gm Tablet, 1 GM PO QID Crush and dissolve into 5-10 mL of water and take 30 minutes before meals and bedtime Prescribed by: JOEL MANUEL on 02/10/21 1229 Patient Home Medication List Home Medication List Reviewed: Yes Review of Systems Review of Systems Constitutional: see HPI EENTM: no symptoms reported Respiratory: see HPI Cardiovascular: no symptoms reported Gastrointestinal: see HPI Genitourinary: no symptoms reported : No Musculoskeletal: no symptoms reported Skin: no symptoms reported Psychiatric/Neurological: No Symptoms Reported Hematologic/Lymphatic: No Symptoms Reported Immunological/Allergic: no symptoms reported Past Bhhmbdg-Mdcntl-Ukftlz Hx Past Med/Social Hx: Reviewed Nursing Past Med/Soc Hx Patient Social History Alcohol Use: Denies Use Number of Drinks Today: FF Alcohol Beverage of Choice: Vodka Drug of Choice: HX OF MJ , METH, THC, PILLS--POLYSUBSTANCES-OPIATES/BENZO'S ESPECIALLY Smoking Status: Current Everyday Smoker Type Used: Cigarettes Former Smoker, Quit: December 24, 2016 2nd Hand Smoke Exposure: Yes Recent Infectious Disease Expo: No Recent Hopitalizations: No Immunizations Up To Date Tetanus Booster (TDap): Unknown Date of Pneumonia Vaccine: Apr 26, 2015 Date of Influenza Vaccine: Sep 22, 2019 Seasonal Allergies Seasonal Allergies: No Past Medical History Surgeries: Yes Eye Surgery, Gallbladder, Hysterectomy, Orthopedic, Renal, Tubal Ligation Respiratory: Yes Pneumonia, Chronic Bronchitis, Pulmonary Embolism Currently Using CPAP: No Currently Using BIPAP: No Cardiac: Yes Hypertension Neurological: Yes ("PSEUDO SEIZURES") Headaches /Migraines, Seizure Disorder 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 Disorders: No Female 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 EXTENSIVE DENTAL CARIES/LEGALLY BLIND) Loss of Vision: Bilateral Cancer: No Psychosocial: Yes (POLYSUBSTANCE ABUSE, OVERDOSES ) Pseudo Seizures, Sleep Difficulties, Anxiety, Suicide Attempts, Depression Integumentary: No Blood Disorders: No Family Medical History Alcoholism 19 FATHER (grandfather) Alzheimer's disease 19 MOTHER (grandmother) Arthritis 19 FATHER Cardiovascular disease 19 FATHER 19 MOTHER Cataracts 19 MOTHER Coronary thrombosis 19 FATHER Dementia 19 MOTHER (grandparents) Diabetes mellitus 19 MOTHER Drug abuse 19 FATHER Glaucoma 19 FATHER (grandfather) Headache disorder 19 FATHER Hypercholesterolemia 19 FATHER Hypertension 19 FATHER Myocardial infarction 19 FATHER Parkinson's disease 19 MOTHER Prostate cancer 19 MOTHER (uncle brother of mother) Psychosocial problem 19 FATHER Respiratory disorder 19 FATHER (grandfather) Seizure disorder 19 MOTHER No Family History of: AIDS Abdominal aortic aneurysm Vargas's disease Aphasia Asthma Cancer of mouth Colon cancer Completed stroke Congenital disease Congenital heart disease Cystic fibrosis Deafness or hearing loss Dysphasia Fibrocystic disease of breast Gastroenteritis Infertility Kidney disease Neoplasm Severe allergy Thyroid disease Tuberculosis Visual disorder Physical Exam Vital Signs Vital Signs - First Documented 02/10/21 08:15 Temp 36.8 Pulse 61 Resp 18 B/P (MAP) 175/98 (123) Pulse Ox 99 Capillary Refill : Less Than 3 Seconds Height, Weight, BMI Height: 5'0.00" Weight: 258lbs. 2.0oz. 117.052964jh; 34.00 BMI Method:Stated General Appearance: WD/WN, Moderate Distress HEENT: PERRL/EOMI, Normal ENT Inspection Neck: Normal Inspection Respiratory: Normal Breath Sounds, No Accessory Muscle Use, No Respiratory Distress, Rhonci, Wheezing Cardiovascular: Regular Rate, Rhythm, No Edema, No Murmur Gastrointestinal: Normal Bowel Sounds, Soft; No Distended; Tenderness (Epigastrium) Extremity: Normal Inspection, Non Tender, No Pedal Edema Neurologic/Psychiatric: Alert, Oriented x3, No Motor/Sensory Deficits, media services coordinator II- XII Norm as Tested, Other (Anxious, emotionally distraught) Skin: Normal Color, Warm/Dry Procedures/Interventions Date of ETT Placement: Aug 30, 2017 Time of ETT Placement: 2234 Suture Size: 4-0 Progress/Results/Core Measures Suspected Sepsis Recent Fever Within 48 Hours: Yes Infection Criteria Present: Suspected New Infection New/Unexplained Altered Menta: No Sepsis Screen: No Definite Risk SIRS Temperature: Pulse: 61 Respiratory Rate: 18 Laboratory Tests 02/10/21 08:24: White Blood Count 10.1 Blood Pressure 175 /98 Mean: 123 Laboratory Tests 02/10/21 08:24: Creatinine 0.76, Platelet Count 274, Total Bilirubin 0.4 Results/Orders Lab Results Laboratory Tests Test 02/10/21 08:20 02/10/21 08:24 02/10/21 08:29 02/10/21 08:58 Range/Units Influenza Type A (RT-PCR) Not Detected Not Detecte Influenza Type B (RT-PCR) Not Detected Not Detecte SARS-CoV-2 RNA (RT-PCR) Not Detected Not Detecte White Blood Count 10.1 4.3-11.0 10^3/uL Red Blood Count 5.71 H 3.80-5.11 10^6/uL Hemoglobin 16.9 H 11.5-16.0 g/dL Hematocrit 50 35-52 % Mean Corpuscular Volume 88 80-99 fL Mean Corpuscular Hemoglobin 30 25-34 pg Mean Corpuscular Hemoglobin Concent 34 32-36 g/dL Red Cell Distribution Width 14.1 10.0-14.5 % Platelet Count 274 130-400 10^3/uL Mean Platelet Volume 10.7 9.0-12.2 fL Immature Granulocyte % (Auto) 0 % Neutrophils (%) (Auto) 65 42-75 % Lymphocytes (%) (Auto) 25 12-44 % Monocytes (%) (Auto) 6 0-12 % Eosinophils (%) (Auto) 2 0-10 % Basophils (%) (Auto) 0 0-10 % Neutrophils # (Auto) 6.6 1.8-7.8 10^3/uL Lymphocytes # (Auto) 2.6 1.0-4.0 10^3/uL Monocytes # (Auto) 0.7 0.0-1.0 10^3/uL Eosinophils # (Auto) 0.2 0.0-0.3 10^3/uL Basophils # (Auto) 0.0 0.0-0.1 10^3/uL Immature Granulocyte # (Auto) 0.0 0.0-0.1 10^3/uL Sodium Level 142 135-145 MMOL/L Potassium Level 3.7 3.6-5.0 MMOL/L Chloride Level 104 98-107 MMOL/L Carbon Dioxide Level 23 21-32 MMOL/L Anion Gap 15 H 5-14 MMOL/L Blood Urea Nitrogen 8 7-18 MG/DL Creatinine 0.76 0.60-1.30 MG/DL Estimat Glomerular Filtration Rate > 60 BUN/Creatinine Ratio 11 Glucose Level 101 70-105 MG/DL Calcium Level 10.6 H 8.5-10.1 MG/DL Corrected Calcium 10.5 H 8.5-10.1 MG/DL Total Bilirubin 0.4 0.1-1.0 MG/DL Aspartate Amino Transf (AST/SGOT) 21 5-34 U/L Alanine Aminotransferase (ALT/SGPT) 14 0-55 U/L Alkaline Phosphatase 73 40-136 U/L C-Reactive Protein High Sensitivity 3.28 H 0.00-0.50 MG/DL Total Protein 8.0 6.4-8.2 GM/DL Albumin 4.1 3.2-4.5 GM/DL Lipase 23 8-78 U/L Serum Alcohol < 10 <10 MG/DL Urine Color DARK YELLOW Urine Clarity CLEAR Urine pH 8.5 5-9 Urine Specific Strong 1.015 L 1.016-1.022 Urine Protein TRACE H NEGATIVE Urine Glucose (UA) NEGATIVE NEGATIVE Urine Ketones TRACE H NEGATIVE Urine Nitrite NEGATIVE NEGATIVE Urine Bilirubin NEGATIVE NEGATIVE Urine Urobilinogen 0.2 < = 1.0 MG/DL Urine Leukocyte Esterase NEGATIVE NEGATIVE Urine RBC (Auto) NEGATIVE NEGATIVE Urine RBC RARE /HPF Urine WBC 0-2 /HPF Urine Squamous Epithelial Cells 2-5 /HPF Urine Crystals PRESENT H /LPF Urine Amorphous Sediment FEW JOAQUÍN PHOSPHATE H /LPF Urine Bacteria TRACE /HPF Urine Casts NONE /LPF Urine Mucus NEGATIVE /LPF Urine Culture Indicated NO Urine Opiates Screen NEGATIVE NEGATIVE Urine Oxycodone Screen NEGATIVE NEGATIVE Urine Methadone Screen NEGATIVE NEGATIVE Urine Propoxyphene Screen NEGATIVE NEGATIVE Urine Barbiturates Screen NEGATIVE NEGATIVE Ur Tricyclic Antidepressants Screen NEGATIVE NEGATIVE Urine Phencyclidine Screen NEGATIVE NEGATIVE Urine Amphetamines Screen NEGATIVE NEGATIVE Urine Methamphetamines Screen NEGATIVE NEGATIVE Urine Benzodiazepines Screen NEGATIVE NEGATIVE Urine Cocaine Screen NEGATIVE NEGATIVE Urine Cannabinoids Screen POSITIVE H NEGATIVE My Orders Orders - JOEL FULLER MD Covid 19 Inhouse Test (02/10/21 08:28) Influenza A And B By Pcr (02/10/21 08:28) Alcohol (02/10/21 08:29) Cbc With Automated Diff (02/10/21 08:29) Comprehensive Metabolic Panel (02/10/21 08:29) Hs C Reactive Protein (02/10/21 08:29) Drug Screen Stat (Urine) (02/10/21 08:29) Lipase (02/10/21 08:29) Ua Culture If Indicated (02/10/21 08:29) Ondansetron Injection (Zofran Injectio (02/10/21 08:30) Famotidine Injection (Pepcid Injection) (02/10/21 08:30) Ondansetron Injection (Zofran Injectio (02/10/21 08:29) Famotidine Injection (Pepcid Injection) (02/10/21 08:29) Fentanyl Inj (Sublimaze Injection) (02/10/21 09:00) Chest Pa/Lat (2 View) (02/10/21 09:40) Lidocaine 2% Viscous 15 Ml (Xylocaine Vi (02/10/21 09:45) Antacid Suspension (Mylanta Suspension (02/10/21 09:45) Fentanyl Inj (Sublimaze Injection) (02/10/21 10:30) Ct Abdomen/Pelvis W (02/10/21 10:18) Iohexol Injection (Omnipaque 350 Mg/Ml 1 (02/10/21 10:30) Received Contrast (Hold Metformin- Contr (02/10/21 10:30) Sodium Chloride Flush (Catheter Flush Sy (02/10/21 10:30) Ns (Ivpb) (Sodium Chloride 0.9% Ivpb Bag (02/10/21 10:30) Ondansetron Injection (Zofran Injectio (02/10/21 12:30) Ketorolac Injection (Toradol Injection) (02/10/21 12:30) Lidocaine 2% Viscous 15 Ml (Xylocaine Vi (02/10/21 12:30) Antacid Suspension (Mylanta Suspension (02/10/21 12:30) Medications Given in ED Current Medications Medications Dose Ordered Sig/Garry Route Start Time Stop Time Status Last Admin Dose Admin Al Hydrox/Mg Hydrox/Simethicone 30 ml ONCE ONCE PO 02/10/21 09:45 02/10/21 09:46 DC 02/10/21 09:58 30 ML Al Hydrox/Mg Hydrox/Simethicone 30 ml ONCE ONCE PO 02/10/21 12:30 02/10/21 12:31 DC 02/10/21 12:46 30 ML Fentanyl Citrate 50 mcg ONCE ONCE IVP 02/10/21 10:30 02/10/21 10:31 DC 02/10/21 10:32 50 MCG Iohexol 100 ml ONCE ONCE IV 02/10/21 10:30 02/10/21 10:31 DC 02/10/21 10:45 97 ML Ketorolac Tromethamine 15 mg ONCE ONCE IVP 02/10/21 12:30 02/10/21 12:31 DC 02/10/21 12:45 15 MG Lidocaine HCl 15 ml ONCE ONCE PO 02/10/21 09:45 02/10/21 09:46 DC 02/10/21 09:59 15 ML Lidocaine HCl 15 ml ONCE ONCE PO 02/10/21 12:30 02/10/21 12:31 DC 02/10/21 12:46 15 ML Ondansetron HCl 4 mg ONCE ONCE IVP 02/10/21 12:30 02/10/21 12:31 DC 02/10/21 12:45 4 MG Sodium Chloride 10 ml NEEDED PRN IV 02/10/21 10:30 02/10/21 12:52 DC 02/10/21 10:45 10 ML Sodium Chloride 100 ml ONCE ONCE IV 02/10/21 10:30 02/10/21 10:31 DC 02/10/21 10:45 80 ML Vital Signs/I&O 02/10/21 02/10/21 08:15 12:52 Temp 36.8 Pulse 61 64 Resp 18 18 B/P (MAP) 175/98 (123) 152/82 (123) Pulse Ox 99 99 Capillary Refill : Less Than 3 Seconds Blood Pressure Mean: 123 Progress Note : Progress Note Patient was treated with Pepcid, Zofran, and fentanyl. Covid screening was negative. Patient was further treated with a GI cocktail. Which briefly alleviated her pain. She had unsatisfactory results with this and a CT of the abdomen and pelvis was obtained. She was eventually treated with a repeat dose of GI cocktail, Zofran, and fentanyl. She received Toradol as a final pain management. She was discharged home with medications. Diagnostic Imaging Diagonstic Imaging: Xray Plain Films/CT/US/NM/MRI: chest Comments NAME: TERENCE FUNK [facility] REC#: [id number] PT STATUS: DEP ER : 1970 PHYSICIAN: JOEL FULLER MD ADMIT DATE: 02/10/21/ER Signed Date of Exam:02/10/21 CHEST PA/LAT (2 VIEW) INDICATION: Shortest of air and abdominal pain. TIME OF EXAM: 10:08 AM CORRELATION is made with prior chest from 03/24/2020. The heart size is normal. The pulmonary vascularity is unremarkable. The lungs are clear. No infiltrate, effusion or pneumothorax is detected. IMPRESSION: No acute cardiopulmonary process is detected. Dictated by: Dictated on workstation # [id number] Dict: 02/10/21 1023 Trans: 02/10/21 1516 [facility] [id number] Interpreted by: SARAH MEJIA MD Electronically signed by: SARAH MEJIA MD 02/10/21 1516 Diagonstic Imaging: CT Plain Films/CT/US/NM/MRI: abdomen, pelvis Comments NAME: TERENCE FUNK [facility] REC#: [id number] PT STATUS: REG ER : 1970 PHYSICIAN: JOEL FULLER MD ADMIT DATE: 02/10/21/ER Draft Date of Exam:02/10/21 CT ABDOMEN/PELVIS W CLINICAL INDICATION: Patient with right upper quadrant pain and fever. Patient has past surgical history of hysterectomy. EXAM: Axial CT scan of the abdomen and pelvis performed with 97 mL of Omnipaque 350 IV contrast. Sagittal and coronal reformatted images are created. Auto Exposure Controls were utilized during the CT exam to meet ALARA standards for radiation dose reduction. COMPARISON: CT scan of the abdomen and pelvis with contrast dated 05/15/2019. FINDINGS: The visualized lung bases are clear. There are degenerative spurs involving the visualized lower thoracic spine and lumbar spine. There is lower lumbar spine facet arthropathy. There is a 1.4 cm patchy area of enhancement in the right lobe of the liver which is isodense to liver on the delayed phase, most likely representing a hemangioma. This hemangioma previously measured 11 mm on the prior study. The remainder of the liver is unremarkable. The spleen, pancreas, adrenal glands are unremarkable. Both kidneys are unremarkable. No hydronephrosis, stone, or mass. The bladder is fluid-filled with no gross abnormality. Multiple phleboliths are seen in the pelvis. There are multiple surgical tacks seen in the low pelvis region. The uterus is surgically resected. The expected regions of the ovaries show no significant abnormality. There is no intestinal obstruction. The appendix is unremarkable. The gallbladder is surgically resected. There is no evidence of intrahepatic or extra hepatic ductal dilation. The common duct measures roughly 8 mm which is within normal limits postcholecystectomy. The extra abdominal and extrapelvic soft tissue structures are unremarkable. IMPRESSION: 1: There is no CT evidence of acute abdominal or pelvic process. Cholecystectomy changes are again noted. There are no dilated ducts. 2: Benign hemangioma in the right lobe of the liver is again seen. 3: Postop change to the pelvis, as described above. Dictated on workstation # [id number] Dict: 02/10/21 1123 Trans: 02/10/21 1155 [facility] [id number] Interpreted by: MISBAH MARX MD Departure Impression Primary Impression: Epigastric pain Additional Impressions: Nausea and vomiting Qualified Codes: R11.2 - Nausea with vomiting, unspecified Cough Disposition: HOME, SELF-CARE Condition: Improved Departure-Patient Inst. Decision time for Depature: 12:25 Referrals: HARVEY LINDSEY DO (PCP/Family) Primary Care Physician Patient Instructions: Severe Abdominal Pain, Adult (DC) Add. Discharge Instructions: Start with a noncarbonated clear liquid diet. Gradually advance your diet with small quantities of bland food as tolerated. Start your medications as prescribed. Zofran can be used for nausea and vomiting. Follow-up with your primary care provider soon as possible. Return to the emergency room if you have worsening symptoms. All discharge instructions reviewed with patient and/or family. Voiced understanding. Scripts Sucralfate (Carafate) 1 Gm Tablet 1 GM PO QID, #120 TAB Crush and dissolve into 5-10 mL of water and take 30 minutes before meals and bedtime Prov: JOEL FULLER MD 02/10/21 Omeprazole (Omeprazole) 20 Mg Capsule.dr 20 MG PO BID, #60 CAP Prov: JOEL FULLER MD 02/10/21 Ondansetron (Ondansetron Odt) 4 Mg Tab.rapdis 4 MG SL Q4H PRN for NAUSEA/VOMITING, #10 TAB Prov: JOEL FULLER MD 02/10/21 JOEL FULLER MD Feb 10, 2021 12:29
[2021-02-10] MEDS ORDERED: KETOROLAC 30 MG/ML VIAL IVP ONE (12:30)
[2021-02-10 12:52] VITALS: BP 152/82
== END 2021-02-10 12:52 | disposition home or self-care (01) ==
LOC: EDUNIT# 08:23 → ER 08:25
DX: R10.13 Epigastric pain (principal); R11.2 Nausea with vomiting, unspecified; R05 Cough; F32.9 Major depressive disorder, single episode, unspecified; F41.9 Anxiety disorder, unspecified; I10 Essential (primary) hypertension; G40.909 Epilepsy, unspecified, not intractable, without status epilepticus; E66.01 Morbid (severe) obesity due to excess calories; F17.210 Nicotine dependence, cigarettes, uncomplicated; Z20.822 Contact with and (suspected) exposure to COVID-19; Z68.34 Body mass index [BMI] 34.0-34.9, adult; Z79.52 Long term (current) use of systemic steroids; Z79.899 Other long term (current) drug therapy
CPT/HCPCS: 36415; 71046; 74177; 80053; 80306; 80320; 81000; 83690; 85025; 86141; 87636

== ENCOUNTER → 2022-01-08 | Outpatient (CLI) | payer MEDICAID ==
[~2022-01-08] MED LIST changes: +AMOX-355 PO; +CYCL10TA25 PO; -DULO60CA6 PO; +DULO60CA7 PO; +GADOTERATE 0.5 MMOL/ML (CLARISCAN) 20 ML VIAL IV ONE; +IPRA3AMP31 IH; -LEVO500T80 PO; +LEVO500T81 PO; +OMEP20CA18 PO; +ONDA4TAB11 SL; +SUCR1TAB36 PO; +TIZA-186 PO; -TIZA4TAB4 PO; +[UNRECOGNIZED DRUG - CODE] MC
--- NOTE | 2022-01-08 17:33 | Diagnostic Imaging Report ---
PROCEDURE: MR imaging abdomen with and without contrast. TECHNIQUE: Multiplanar, multisequence MR imaging of the abdomen was performed with and without contrast. INDICATION: Liver lesion. Correlated with abdominal pelvic CT 02/10/2021. FINDINGS: Right hepatic lobe nodule measures 12 mm in long axis, it is TII hyperintense and shows a vigorous homogenous enhancement after contrast and shows slow washout. The lesion at the level can be seen dating back to 2016 and this is presumed flash filling of a cavernous hemangioma. No new liver mass. Hepatic and vascular enhancement normal. There is no pathological biliary ductal dilatation postcholecystectomy. Pancreas and its duct and the peripancreatic fat normal. There is no choledocholithiasis. Spleen and adrenals are negative. There is a cyst in the left upper pole. Kidneys unobstructed and nonacute. The adrenals are negative. There is no abdominal mesenteric or retroperitoneal adenopathy. No ascites. No basilar pleural fluid. IMPRESSION: Right lobe lesion TII hyperintense with vigorous homogenous enhancement and delayed washout, stable from previous exams given differing modality and presumed flash filling of a benign cavernous hemangioma. No new liver lesion. No acute-appearing abnormality. Dictated by: Dictated on workstation # [id number]
== END ==
LOC: RAD 14:18
PROVIDERS: ATTEND Family Medicine
DX: D18.00 Hemangioma unspecified site (principal); K76.9 Liver disease, unspecified
CPT/HCPCS: 74183